=== PATIENT | male | born 1980 | race Caucasian/White ===

== ENCOUNTER 2016-05-23 19:30 | Emergency (ER) | payer OTHER ==
[~2016-05-23] VITALS: Ht 177.8 cm; Wt 73.0 kg
[~2016-05-23 19:30] MED LIST: AMI25 PO; CHLO25CA9 PO; CLON-379 PO; DIPH25CA6 PO; ESCI10TA PO; FOLI20CA PO; GABA600T PO; HYDR-3012 PO; IBUP200C PO; LORA1TAB PO; MIRT30TA5 PO; MULT-761 PO; NICO-512 TRANSDERM; PROP40TA4 PO
[2016-05-23 20:43] VITALS: Ht 177.8 cm; Wt 73.0 kg
--- NOTE | 2016-05-24 01:31 | ERD ---
ER Documentation Chief Complaint Date/Time DATE: 05/24/16 TIME: 01:30 Chief Complaint ETOH abuse,fatigue x mths,recent low Hgb/transfusion,black stools,abd. pain HPI This is a 36 year male comes in with complaints of alcohol abuse. He has been fatigued for months. He said he was transfused recently. Patient states that he feels weak. Patient has been drinking consistently for the past 15 years. No other current complaints. ROS All systems reviewed and are negative except as per history of present illness. Medications Home Meds Active Scripts Nicotine* (Nicoderm* Patch) 1 Patch Patch, 1 PATCH TRANSDERM DAILY, #20 PATCH Prov:KEISHA MYERS MD 02/10/15 Escitalopram Oxalate* (Lexapro*) 10 Mg Tablet, 10 MG PO DAILY, #60 TAB Prov:KEISHA MYERS MD 02/10/15 Lorazepam* (Lorazepam*) 1 Mg Tablet, 1 MG PO Q8 Y for alcohol withdrawl , #40 TAB Prov:KEISHA MYERS MD 02/10/15 Chlordiazepoxide* (Chlordiazepoxide*) 25 Mg Capsule, 25 MG PO BID Y for ANXIETY , #40 CAP Prov:KEISHA MYERS MD 02/10/15 Mirtazapine* (Mirtazapine*) 30 Mg Tablet, 30 MG PO HS, #60 TAB Prov:KEISHA MYERS MD 02/10/15 Amitriptyline Hcl* (Elavil*) 25 Mg Tab, 25 MG PO HS, #60 TAB Prov:KEISHA MYERS MD 02/10/15 Gabapentin* (Neurontin*) 600 Mg Tablet, 600 MG PO BID for LE neuropathy, tremors , #100 TAB Prov:KEISHA MYERS MD 09/23/14 Reported Medications Hydroxyzine Hcl* (Hydroxyzine Hcl*) 50 Mg Tablet, 100 MG PO Q6H Y for ANXIETY, TAB 01/30/15 Multivitamin (MULTI VITAMIN DAILY) 1 Each Tablet, 1 TAB PO DAILY, TAB 09/22/14 Clonidine Hcl* (Clonidine Hcl*) 0.1 Mg Tab, 0.1 MG PO Q6 Y for ELEVATED SYSTOLIC BP, TAB for sbp> 160 09/22/14 Propranolol Hcl* (Propranolol Hcl*) 40 Mg Tablet, 40 MG PO BID, TAB 09/22/14 Folic Acid (Folic Acid) 20 Mg Capsule, 1 MG PO DAILY 09/22/14 Diphenhydramine Hcl (Benadryl) 25 Mg Cap, 50 MG PO HS Y for INSOMNIA, CAP 09/22/14 Ibuprofen (Advil Migraine) 200 Mg Capsule, 600 MG PO Q6 Y for ANXIETY 09/22/14 Allergies Allergies: Coded Allergies: No Known Allergy (Unverified , 01/30/15) PMhx/Soc History of Surgery: No (not stated) Anesthesia Reaction: No Hx Neurological Disorder: No Hx Respiratory Disorders: No Hx Cardiac Disorders: Yes (htn) Hx Psychiatric Problems: No Hx Miscellaneous Medical Probl: Yes (ETOH use, alcoholic cirrhosis, anemia, thrombocytopenia, depression) Hx Alcohol Use: Yes (1/2 LITER VODKA DAILY) Hx Substance Use: No Hx Tobacco Use: Yes (1/2 pack /day) Smoking Status: Current every day smoker Physical Exam Vitals Vital Signs Date Time Temp Pulse Resp B/P Pulse Ox O2 Delivery O2 Flow Rate FiO2 05/23/16 20:43 97.1 92 20 124/71 100 Physical Exam Const: [] Head: Atraumatic Eyes: Normal Conjunctiva ENT: Normal External Ears, Nose and Mouth. Neck: Full range of motion..~ No meningismus. Resp: Clear to auscultation bilaterally Cardio: Regular rate and rhythm, no murmurs Abd: Soft, non tender, non distended. Normal bowel sounds Skin: No petechiae or rashes Back: No midline or flank tenderness Ext: No cyanosis, or edema Neur: Awake and alert Psych: Normal Mood and Affect KOBE WILSON May 24, 2016 01:31
[2016-05-24] MEDS ORDERED: LORAZEPAM 1 MG TAB PO ONE (02:00)
[2016-05-24 02:43] LABS: BASOPHILS % 0.9 % (0.0-2.0); CONDITION 1; EOSINOPHILS # 0.1 10^3/ul (0.0-0.5); EOSINOPHILS % 2.1 % (0.0-7.0); HEMATOCRIT 35.3 % (42.0-52.0); HEMOGLOBIN 11.4 g/dl (14.0-18.0); LH ANALYZER COMMENTS 1; LYMPHOCYTES % 40.7 % (15.0-51.0); MEAN CORPUSCULAR HEMOGLOBIN 27.7 pg (29.0-33.0); MEAN CORPUSCULAR HGB CONC 32.2 g/dl (32.0-37.0); MEAN CORPUSCULAR VOLUME 86.2 fl (82.0-101.0); MEAN PLATELET VOLUME 6.8 fl (7.4-10.4); MONOCYTE # 0.8 10^3/ul (0.3-0.9); MONOCYTES % 16.2 % (0.0-11.0); NEUTROPHILS % 40.1 % (39.0-77.0); PLATELET COUNT 235 10^3/UL (140-440); RED BLOOD COUNT 4.09 10^6/ul (4.70-6.10); UNCORRECTED WBC 4.9 10^3/ul (4.8-10.8); WHITE BLOOD COUNT 4.9 10^3/ul (4.8-10.8)
[2016-05-24] MEDS ORDERED: LORA1TAB PO (02:56)
[2016-05-24 03:05] VITALS: BP 115/59; PULSE 86; RESP 18
== END 2016-05-24 03:14 | disposition home or self-care (01) ==
LOC: E/R 19:30
DX: F10.10 Alcohol abuse, uncomplicated (principal); F17.210 Nicotine dependence, cigarettes, uncomplicated; I10 Essential (primary) hypertension
CPT/HCPCS: 36415; 85025; Z7502; Z7610; 99283

== ENCOUNTER 2017-01-02 19:30 | Inpatient (IN) | payer OTHER ==
[~2017-01-02] VITALS: Ht 167.6 cm; Wt 73.9 kg
[2017-01-02 19:53] VITALS: PULSE 95
[2017-01-02 20:09] VITALS: PULSE 90
[2017-01-02 20:11] VITALS: BP 134/66; RESP 19
[2017-01-02] MEDS: DEXTROSE 5%-0.45% NACL 1,000 ML IV SCH (20:31)
[2017-01-02] MEDS ORDERED: traZODone 50 MG TAB PO SCH (21:00)
[2017-01-02] MEDS: LORAZEPAM 2 MG INJ IV PRN (21:55)
[2017-01-02] MEDS ORDERED: ACETAMINOPHEN 325 MG TAB PO PRN (23:00)
[2017-01-02] MEDS ORDERED: DOCUSATE SODIUM 100 MG CAP PO PRN (23:00)
[2017-01-02] MEDS ORDERED: ONDANSETRON 4 MG INJ IV PRN (23:00)
[2017-01-02] MEDS ORDERED: NACL 0.9% 3 ML SYG IV SCH (23:00)
[2017-01-02] MEDS ORDERED: HYDROmorphONE 1 MG/ML SYG IV PRN (23:00)
[2017-01-02 23:57] VITALS: BP 115/59; RESP 18
[2017-01-03] VITALS (11 sets, daily range): BP systolic 116–121; BP diastolic 59–65; PULSE 85–95; RESP 18–20
[2017-01-03] MEDS: PANTOPRAZOLE 40 MG INJ IV SCH ×2 (05:56→17:15)
[2017-01-03 08:12] LABS: BASOPHILS % 0.2 % (0.0-2.0); EOSINOPHILS % 0.1 % (0.0-7.0); HEMATOCRIT 26.5 % (42.0-52.0); HEMOGLOBIN 9.1 g/dl (14.0-18.0); LYMPHOCYTES # 1.1 10^3/ul (0.8-2.9); LYMPHOCYTES % 7.5 % (15.0-51.0); MEAN CORPUSCULAR HEMOGLOBIN 36.5 pg (29.0-33.0); MEAN CORPUSCULAR HGB CONC 34.3 g/dl (32.0-37.0); MEAN CORPUSCULAR VOLUME 106.4 fl (82.0-101.0); MONOCYTE # 0.7 10^3/ul (0.3-0.9); MONOCYTES % 4.8 % (0.0-11.0); NEUTROPHIL # 12.6 10^3/ul (1.6-7.5); NEUTROPHILS % 84.5 % (39.0-77.0); NUCLEATED RED BLOOD CELLS% 0.2 /100WBC (0.0-0.0); PLATELET COUNT 135 10^3/UL (140-415); RED BLOOD COUNT 2.49 10^6/ul (4.70-6.10); WHITE BLOOD COUNT 14.9 10^3/ul (4.8-10.8)
[2017-01-03 08:52] LABS: ALBUMIN 2.4 g/dl (3.3-4.9); ALBUMIN/GLOBULIN RATIO 0.53; BILIRUBIN,INDIRECT 2.2 mg/dl (0-1.1); CALCIUM 8.4 mg/dl (8.4-10.2); CREATININE 1.87 mg/dl (0.61-1.24); POTASSIUM 3.9 mmol/L (3.5-5.1); TOTAL PROTEIN 6.9 g/dl (6.1-8.1)
[2017-01-03 08:59] LABS: BILIRUBIN,DIRECT 19.8 mg/dl (0.00-0.20)
[2017-01-03] MEDS: LORAZEPAM 2 MG INJ IV PRN (09:34)
--- NOTE | 2017-01-03 09:44 | OPPN ---
Date/Time of Note Date/Time of Note DATE: 01/03/17 TIME: 09:41 Operative Report Preoperative Diagnosis Screening colonoscopy Postoperative Diagnosis Screening colonoscopy Operation/Procedure Performed Colonoscopy Normal all the way into cecum Normal clarity and cleanliness Provider: LAURA CORDERO MD Anesthesia Type: moderate sedation Estimated blood loss: none Transfusion Required: no Specimen: none Grafts/Implants: none Complications: no LAURA CORDERO MD Jan 03, 2017 09:44
--- NOTE | 2017-01-03 10:02 | OPPN ---
Date/Time of Note Date/Time of Note DATE: 01/03/17 TIME: 10:02 LAURA CORDERO MD Jan 03, 2017 10:02
[2017-01-03] MEDS ORDERED: PHYTONADIONE 10 MG/ML INJ SC STA (11:19)
[2017-01-03] MEDS: MULTIVITAMINS 10 ML, THIAMINE 100 MG, FOLIC ACID 1 MG in SOD CHLORIDE 0.9% 1,000 ML IVPB SCH (12:05)
--- NOTE | 2017-01-03 12:28 | PN ---
Date/Time of Note Date/Time of Note DATE: 01/03/17 TIME: 12:21 Assessment/Plan VTE Prophylaxis VTE Prophylaxis Intervention: contraindicated Lines/Catheters [facility] Per[facility] IV Assessment/Plan Chief Complaint/Hosp Course 36 y/o with # Upper GI bleed with hematemesis/ malenia r/o Oesophegeal varices/ gastritis/ esophagitis with etoh abuse # ETOH withdrawal r/p pancreatitis # Acute on chronic liver failure likely Etoh abuse with elevated INR, Hyperbilirubenemia, low platelets, r/o cirrhosis # Possible hepatic encephalopathy # Depression Recs - NPO, Banana bag - Iv ativan/librium - octerotide/ PPI - EGD tmw - Check INR, ammonia levels - Possible Prednisone per GI for Alc hepatitis - Pt will need Rehab for 6 monthsand possibly Liver transplant - SW consult Problems: Subjective 24 Hr Interval Summary Free Text/Dictation Pt very confused spoke to mother at bedside Exam/Review of Systems Vital Signs Vitals Vital Signs Date Time Temp Pulse Resp B/P Pulse Ox O2 Delivery O2 Flow Rate FiO2 01/03/17 12:13 87 01/03/17 11:49 97.6 18 120/63 98 01/03/17 08:27 Room Air Exam Gen:drowsy, confused HEENT:Scleral icterus Neck:supple CVS:Tacycardic Resp:clear Abdomen:distended Ext: trace edema skin: jaundiced Results Result Diagram: 01/03/17 0735 01/03/17 0735 Results 24 hrs Laboratory Tests Test 01/03/17 07:35 White Blood Count 14.9 #H Red Blood Count 2.49 #L Hemoglobin 9.1 #L Hematocrit 26.5 #L Mean Corpuscular Volume 106.4 #H Mean Corpuscular Hemoglobin 36.5 #H Mean Corpuscular Hemoglobin Concent 34.3 Red Cell Distribution Width 19.0 H Platelet Count 135 L Mean Platelet Volume 10.0 # Neutrophils % 84.5 H Lymphocytes % 7.5 L Monocytes % 4.8 Eosinophils % 0.1 Basophils % 0.2 Nucleated Red Blood Cells % 0.2 H Neutrophils # 12.6 H Lymphocytes # 1.1 Monocytes # 0.7 Eosinophils # 0.0 Basophils # 0.0 Nucleated Red Blood Cells # 0.0 Sodium Level 136 Potassium Level 3.9 Chloride Level 112 H Carbon Dioxide Level 17 L Anion Gap 11 Blood Urea Nitrogen 14 Creatinine 1.87 H Glucose Level 135 Calcium Level 8.4 Total Bilirubin 22.0 H Direct Bilirubin 19.80 *H Indirect Bilirubin 2.2 H Aspartate Amino Transf (AST/SGOT) 160 H Alanine Aminotransferase (ALT/SGPT) 28 Alkaline Phosphatase 256 H Total Protein 6.9 Albumin 2.4 L Globulin 4.50 H Albumin/Globulin Ratio 0.53 Medications Medications Current Medications Lorazepam (Ativan) 1 mg Q4 PRN IV ANXIETY Last administered on 01/03/17 09:34 ; Admin Dose 1 MG; Start 01/02/17 at 20:00 Pantoprazole 40 mg 40 mg BID@06,18 IV Last administered on 01/03/17 05:56; Admin Dose 40 MG; Start 01/03/17 at 06:00 Multivitamins/ Thiamine HCl/ Folic Acid/Sodium Chloride (Mvi Adult/ Vitamin B1/ Folic Acid/NS) 1,011.2 ml @ 125 mls/ hr DAILY@09 IVPB Last administered on 12:05; Admin Dose 125 MLS/HR; Start 01/03/17 at 09:00 Chlordiazepoxide (Librium) 25 mg TID PRN PO ETOH WITHDRAWAL SYMPTOMS; Start at 20:00 Trazodone HCl 50 mg 50 mg HS PO Last administered on 01/02/17 21:55; Admin Dose 50 MG; Start 01/02/17 at 21:00 Dextrose/Sodium Chloride (D5-1/2ns) 1,000 ml @ 40 mls/hr Q24H IV Last administered on 01/02/17 20:31; Admin Dose 40 MLS/HR; Start 01/02/17 at 20:00 Ondansetron HCl (Zofran Inj) 4 mg Q6H PRN IV NAUSEA AND/OR VOMITING; Start at 23:00 Acetaminophen (Tylenol Tab) 650 mg Q6H PRN PO PAIN LEVEL 1-3 OR FEVER; Start at 23:00 Hydromorphone HCl (Dilaudid) 0.5 mg Q4H PRN IV SEVERE PAIN LEVEL 7-10; Start at 23:00 Docusate Sodium 100 mg 100 mg Q12H PRN PO CONSTIPATION; Start 01/02/17 at 23:00 Octreotide Acetate/Sodium Chloride (Sandostatin/NS) 100 ml @ 5 mls/hr Q20H IV ; Start 01/03/17 at 13:00 Lactulose (Enulose) 20 gm Q8 PO ; Start 01/03/17 at 14:00 BRAEDEN LUNSFORD MD Jan 03, 2017 12:28
[2017-01-03] MEDS: OCTREOTIDE 1 MG in SOD CHLORIDE 0.9% 95 ML IV SCH (12:49)
--- NOTE | 2017-01-03 13:01 | CONS ---
DATE OF ADMISSION: 01/02/2017 DATE OF CONSULTATION: 01/03/2017 REQUESTING PHYSICIAN: Lloyd Payton MD HISTORY OF PRESENT ILLNESS: The patient is a 36-year-old gentleman with a history of alcohol abuse, cirrhosis of liver, esophageal varicose vein as per old record, depression was transferred to the hospital for 1 episode of hematemesis. The patient has been drinking heavily on a regular basis. He denies of chest pain, hematochezia, melena. No or VICE PRESIDENT SAFETY problems. No fever, no chills. PAST MEDICAL HISTORY: Alcoholism, depression, history of cirrhosis, anemia and thrombocytopenia. MEDICATION: All medication reviewed. ALLERGIES: NO KNOWN DRUG ALLERGIES. FAMILY HISTORY: Father from cirrhosis. SOCIAL HISTORY: He smokes half a pack a day and drinks alcohol on a regular basis, half a vodka every day as per the record. REVIEW OF SYSTEMS: Nothing additional than what has been described. PHYSICAL EXAMINATION: VITAL SIGNS: Stable. ABDOMEN: Benign. HEART: No murmur. LUNGS: Clear. EXTREMITIES: He has got a tremor. NEUROLOGIC: Speech is also slow, able to recognize, oriented to time, place, and space but the speech is slurred. LABORATORY: Platelet count is 135, hematocrit is 26, WBC is 14. No imaging study has been done here. IMPRESSION: 1. Cirrhosis of liver. 2. History of esophageal varicose vein. 3. One episode of hematemesis. 4. Anemia. 5. Coagulopathy. 6. Jaundice. Bilirubin at other hospital was reported 30. 7. Depression. PLAN: At this point, patient will be placed on lactulose. Will continue with PPI. Start the patient on octreotide drip. Continue Librium. Monitor H and H, and transfuse on as needed basis. Patient needs vitamin K and FFP. Will proceed with EGD once he is more stable. He was fed this morning. He also needs thiamine. Dictated By: Renato Mercer MD /derek/dwight /Document#: [id number] CC: Lloyd Payton MD;*EndCC*
[2017-01-03 13:33] LABS: HEMATOCRIT 27.9 % (42.0-52.0); HEMOGLOBIN 9.3 g/dl (14.0-18.0)
[2017-01-03] MEDS: LACTULOSE 30ML CUP PO SCH ×2 (14:52→21:59)
[2017-01-03] MEDS: CHLORDIAZEPOXIDE 25 MG CAP PO PRN ×2 (14:52→21:59)
--- NOTE | 2017-01-03 14:59 | HP ---
DATE OF ADMISSION: 01/02/2017 REASON FOR ADMISSION: Transfer from [facility] for GI bleed and alcohol withdrawal. HISTORY OF PRESENT ILLNESS: This is a 36-year-old male with a past medical history of chronic alcohol abuse, history of multiple admissions in the past secondary to alcohol abuse, pancreatitis, questionable alcoholic cirrhosis who presented to [facility] on January 01 with melena, fatigue, chills, oral bleeding and 1 episode of small volume hematemesis in the setting of daily alcohol use. Patient was also having her dark stool for 4 weeks before admission. Denied any bright red per rectum or hematemesis. He was drinking half 750 mL of vodka a day. Continued to drink during this time. For past 2 weeks, he had progressively become fatigued and had diminished appetite. He has also noticed increased abdominal pain and had spit brenda blood the night before the admission. He returned from a trip to [place] with his mother and began drinking at home. He had an episode of hematemesis and mother brought him to the emergency department. He denied any history of withdrawal seizures, but he became tremulous. In the emergency department, the heart rate was 101, blood pressure 120. His sodium was 129, potassium was 2.3. He was started on Librium and Ativan. His hemoglobin had dropped from 11 to 9.1 and was started on octreotide and Protonix drip. He was also started on Rocephin. He was also started on prednisolone for alcoholic hepatitis and was transferred to [facility] for insurance reason. Currently, the patient is very confused. Said that his father 2 months ago, when he 2 years ago. Has some abdominal pain. No hematemesis or melena noted in the hospital. PAST MEDICAL HISTORY: 1. History of chronic alcohol abuse. 2. Hepatitis with acute on chronic liver failure. 3. Alcoholic pancreatitis. 4. Depression. ALLERGIES: NONE. PROCEDURE HISTORY: None. MEDICATIONS: At [facility]: 1. Rocephin. 2. Ativan. 3. Octreotide drip. 4. Protonix drip. 5. Prednisolone syrup. 6. Banana bag. 7. Folic acid. FAMILY HISTORY: The patient lives with his mother. SOCIAL HISTORY: Two years of daily alcohol use. Drinks a half of 750 mL vodka daily. Smokes half pack a day. Denies IVDU. REVIEW OF SYSTEMS: The patient complained of generalized weakness. Poor appetite. Abdominal pain, nausea, hematemesis, melena. Denies any chest pain, any shortness of breath. The patient is jaundiced. Denies any headache, any blurry vision. Denies any chest pain, no focal neurological deficits. PHYSICAL EXAMINATION: VITAL SIGNS: Blood pressure 120/63, afebrile, heart rate 87, respirations 18. GENERAL: The patient is a disheveled male who is a dozing in and out in the interview, forgetful. Disoriented. HEENT: Scleral icterus. NECK: Supple. HEART: Tachycardic. LUNGS: Decreased breath sounds bilaterally. ABDOMEN: Some distention, but no brenda ascites. Positive bowel sounds. EXTREMITIES: Trace edema. SKIN: Patient has icterus. NEURO: Patient is tremulous. No more moving all extremities. DIAGNOSTIC DATA: Sodium of 136, potassium 3.6, chloride 112, bicarb of 17, BUN of 14, creatinine 1.87 with a baseline of 0.92 in 01/2015. Total bilirubin 22, direct bilirubin 19, AST 160, ALT 28, alkaline phosphatase 256, albumin 2.4. No amylase and lipase. White count of 14.9, hemoglobin 9.1, platelet count 135, INR from [facility] 2.14. CT of the head there was negative for mass, shift or bleed. ASSESSMENT AND PLAN: This is a 36-year-old male presenting with: 1. Hematemesis, melena, bright red blood per rectum. Hemoglobin of 9, likely secondary to gastrointestinal bleed in the setting of hematemesis and melena . The patient is currently hemodynamically stable. Could be due to underlying cirrhosis with esophageal varices or gastritis status esophagitis. 2. Alcohol withdrawal with a history of chronic alcohol abuse. 3. Acute alcoholic hepatitis with acute on chronic liver failure. 4. Chronic alcohol abuse. 5. Hyperbilirubinemia, likely secondary to alcoholic hepatitis. 6. Hypokalemia at [facility], which has been resolved. 7. Acute kidney injury, could be prerenal secondary to dehydration, alcohol abuse, decreased oral intake versus hepatorenal. 8. Hypoalbuminemia. 9. History of alcoholic pancreatitis. PLAN: At this period of time, patient is admitted to the . We will keep the patient n.p.o. We will start the patient on a banana bag, patient IV Ativan, Librium. GI consultation with Dr. Mercer has been requested. We will get EGD tomorrow. We will continue the patient on ocreotide and PPI. Serial H and H. The patient will need rehab. We will check for INR and right upper quadrant ultrasound. I spoke to the mother at the bedside. The patient will need drug rehab. Also spoke to the mother about possible liver transplantation. The rest of the treatment will depend on the patient's hospitalization course. Dictated By: MD SUSI Joyce/derek/juan /Document#: [id number]
[2017-01-03 17:23] LABS: ADD UMIC NO; UR ASCORBIC ACID NEGATIVE (NEGATIVE); UR BILIRUBIN (Dip) 2+ mg/dL (NEGATIVE); UR BLOOD (Dip) NEGATIVE (NEGATIVE); UR CLARITY SLIGHTLY CLOUDY (CLEAR); UR COLOR AMBER (YELLOW); UR GLUCOSE (Dip) NEGATIVE (NEGATIVE); UR KETONES (Dip) NEGATIVE (NEGATIVE); UR LEUKOCYTE ESTERASE (Dip) NEGATIVE Leu/ul (NEGATIVE); UR NITRITE (Dip) NEGATIVE (NEGATIVE); UR RBC 0 /HPF (0-5); UR SPECIFIC GRAVITY (Dip) 1.013 (1.003-1.030); UR TOTAL PROTEIN (Dip) NEGATIVE (NEGATIVE); UR UROBILINOGEN (Dip) 2+ mg/dL (NEGATIVE)
[2017-01-03 17:32] LABS: CANNABINOIDS Negative (NEGATIVE); OPIATES Positive (NEGATIVE)
[2017-01-03 17:37] LABS: BARBITURATES Negative (NEGATIVE); BENZODIAZEPINES Positive (NEGATIVE); COCAINE Negative (NEGATIVE)
[2017-01-03 18:37] LABS: HEMATOCRIT 26.8 % (42.0-52.0)
[2017-01-03] MEDS: DEXTROSE 5%-0.45% NACL 1,000 ML IV SCH (20:02)
[2017-01-04] VITALS (22 sets, daily range): BP systolic 110–139; BP diastolic 63–96; PULSE 80–107; RESP 18–33
[2017-01-04 00:47] LABS: HEMOGLOBIN 9.6 g/dl (14.0-18.0)
--- NOTE | 2017-01-04 02:52 | RADRPT ---
PROCEDURE: Abdominal ultrasound. CLINICAL INDICATION: Abdominal pain. TECHNIQUE: Multiple real-time images were acquired of the patient's abdomen and retroperitoneum u tilizing a high resolution transducer. COMPARISON: 01/30/2015. FINDINGS: The liver demonstrates increased echogenicity and size measuring 21.0 cm. No focal hepatic lesion is identified. The portal vein is patent with hepatopetal flow. The gallbladder is contracted. No gall stones are identified within the gallbladder. There is no pericholecystic fluid or gallbladder wall thickening. The common bile duct measures 3.9 mm in maximal dimension. The visualized portions of th e pancreas are unremarkable. The pancreas is partially obscured by overlying bowel gas. The spleen i s enlarged measuring 16.2 cm. There is trace ascites within the right upper quadrant. The kidneys are normal size, and demonstrate normal echogenicity and morphology. The right kidney me asures 11.9 x 4.5 x 4.9 cm. The left kidney measures 11.7 x 4.8 x 4.5 cm. There is no dilatation of the pelvicaliceal systems bilaterally. There are no perinephric fluid collections. There is a small echogenic calculus within the left kidney measuring 5.8 x 3.9 x 4.7 mm. The visualized abdominal ao rta and vena cava are unremarkable. IMPRESSION: Enlarged liver with fatty infiltration. Splenomegaly. Nonobstructing left renal calculus. Trace right upper quadrant ascites. Pancreas partially obscured by overlying bowel gas. .Phill Suazo MD, MD Date Time Electronically viewed and signed by .Phill Suazo MD, MD on 01/04/2017 02:52 .T/
[2017-01-04] MEDS: LACTULOSE 30ML CUP PO SCH ×4 (05:09→23:04)
[2017-01-04] MEDS: PANTOPRAZOLE 40 MG INJ IV SCH ×2 (05:39→19:06)
[2017-01-04] MEDS: LORAZEPAM 2 MG INJ IV PRN (06:32)
--- NOTE | 2017-01-04 07:09 | RADRPT ---
PROCEDURE: XR Chest. CLINICAL INDICATION: Preop TECHNIQUE: A single AP view of the chest was obtained. COMPARISON: Chest x-ray dated 02/05/2015 FINDINGS: Lung volumes are low. There is left basilar atelectasis. Nodular densities are seen within the right hilum. No focal airspace opacification, pleural effusion or pneumothorax is seen. The cardiomedias tinal silhouette is within normal limits for size. The osseous structures are unremarkable. IMPRESSION: 1. Low lung volumes with left basilar atelectasis. 2. Nodular densities in the right hilum, may reflect prominent pulmonary vessels. CT of the chest i s recommended for further evaluation. RPTAT: HH .Josie Merritt MD, MD Date Time Electronically viewed and signed by .Josie Merritt MD, on 01/04/2017 07:09 .G/
[2017-01-04 08:27] LABS: BASOPHILS % 0.2 % (0.0-2.0); EOSINOPHILS # 0.1 10^3/ul (0.0-0.5); EOSINOPHILS % 0.4 % (0.0-7.0); HEMATOCRIT 27.8 % (42.0-52.0); HEMOGLOBIN 9.3 g/dl (14.0-18.0); LYMPHOCYTES # 0.9 10^3/ul (0.8-2.9); LYMPHOCYTES % 6.1 % (15.0-51.0); MEAN CORPUSCULAR HEMOGLOBIN 36.5 pg (29.0-33.0); MEAN CORPUSCULAR HGB CONC 33.5 g/dl (32.0-37.0); MEAN PLATELET VOLUME 10.1 fl (7.4-10.4); MONOCYTE # 1.1 10^3/ul (0.3-0.9); MONOCYTES % 7.4 % (0.0-11.0); NEUTROPHIL # 12.6 10^3/ul (1.6-7.5); NEUTROPHILS % 81.9 % (39.0-77.0); PLATELET COUNT 146 10^3/UL (140-415); RED BLOOD COUNT 2.55 10^6/ul (4.70-6.10); RED CELL DISTRIBUTION WIDTH 19.5 % (11.5-14.5); WHITE BLOOD COUNT 15.4 10^3/ul (4.8-10.8)
[2017-01-04] MEDS: OCTREOTIDE 1 MG in SOD CHLORIDE 0.9% 95 ML IV SCH (08:41)
[2017-01-04 08:50] LABS: INR 1.76; PROTIME 20.7 Sec (12.2-14.2); PT RATIO 1.6
[2017-01-04 09:00] LABS: ALBUMIN 2.5 g/dl (3.3-4.9); ALBUMIN/GLOBULIN RATIO 0.55; BILIRUBIN,INDIRECT 2.3 mg/dl (0-1.1); BILIRUBIN,TOTAL 24.5 mg/dl (0.2-1.3); CALCIUM 8.9 mg/dl (8.4-10.2); CREATININE 2.12 mg/dl (0.61-1.24)
[2017-01-04 09:06] LABS: BILIRUBIN,DIRECT 22.2 mg/dl (0.00-0.20); POTASSIUM 2.9 mmol/L (3.5-5.1)
[2017-01-04] MEDS: CHLORDIAZEPOXIDE 25 MG CAP PO SCH ×3 (09:34→21:03)
[2017-01-04] MEDS: LORAZEPAM 2 MG INJ IV SCH ×8 (09:34→23:03)
--- NOTE | 2017-01-04 09:40 | PN ---
Date/Time of Note Date/Time of Note DATE: 01/04/17 TIME: 09:35 Assessment/Plan VTE Prophylaxis VTE Prophylaxis Intervention: contraindicated Lines/Catheters [facility] Peripheral IV Urinary Cath still in place: No Assessment/Plan Chief Complaint/Hosp Course 36 y/o with # Upper GI bleed with hematemesis/ josue r/o Oesophegeal varices/ gastritis/ esophagitis with etoh abuse, H/H stable # ETOH withdrawal r/0 pancreatitis # Acute on chronic liver failure likely Etoh abuse with elevated INR, Hyperbilirubenemia, low platelets, r/o cirrhosis # Hepatic encephalopathy with elevated Ammonia levels # Depression # Hypokalemia # NICOLAS likely prerenal vs HRS # Acidosis Recs - NPO, Banana bag - Iv ativan/librium ATC - octerotide/ PPI - EGD today - Lactulose and Rifaximin after EGD - iV Rocephin for GI bleed - [place] - ABG for acidosis - Possible Prednisone per GI for Alcholic hepatitis - U/s negative for cirrhosis - SW consult - 1:1 sitter Problems: Subjective 24 Hr Interval Summary Free Text/Dictation Pt says that he wants to go home Very shaky, tremolous Urinated only once No bleeding noted Exam/Review of Systems Vital Signs Vitals Vital Signs Date Time Temp Pulse Resp B/P Pulse Ox O2 Delivery O2 Flow Rate FiO2 01/04/17 08:25 95 01/04/17 08:01 97.4 19 123/66 97 01/04/17 06:39 Nasal Cannula 2.0 Intake and Output 01/03/17 01/03/17 01/04/17 15:00 23:00 07:00 Intake Total 1411.2 ml 200 ml Output Total 500 ml Balance 911.2 ml 200 ml Exam Gen:Awake,alert oriented x1 HEENT: blood tinged teeth, Scleral icterus Neck:supple CVS: Regular rate and rthym Lungs: decreased breath sounds b/l Abdomen: distended, Ext: no edema Results Result Diagram: 01/04/17 0739 01/04/17 0740 Results 24 hrs Laboratory Tests Test 01/03/17 12:41 01/03/17 14:06 01/03/17 14:30 01/03/17 18:06 Hemoglobin 9.3 L 9.0 L Hematocrit 27.9 L 26.8 L Ammonia 166 #H 131 H Alpha Fetoprotein 2.51 Urine Color ANITRA Urine Clarity SLIGHTLY CLOUDY A Urine pH 6.0 Urine Specific [place] 1.013 Urine Ketones NEGATIVE Urine Nitrite NEGATIVE Urine Bilirubin 2+ H Urine Urobilinogen 2+ H Urine Leukocyte Esterase NEGATIVE Urine Microscopic RBC 0 Urine Microscopic WBC 0 Urine Hemoglobin NEGATIVE Urine Random Sodium 23 L Urine Glucose NEGATIVE Urine Total Protein NEGATIVE Urine Opiates Screen Positive Urine Barbiturates Negative Urine Amphetamines Screen Negative Urine Benzodiazepines Screen Positive Urine Cocaine Screen Negative Urine Cannabinoids Negative Test 01/04/17 00:04 01/04/17 07:39 01/04/17 07:40 Hemoglobin 9.6 L 9.3 L Hematocrit 28.0 L 27.8 L White Blood Count 15.4 H Red Blood Count 2.55 L Mean Corpuscular Volume 109.0 H Mean Corpuscular Hemoglobin 36.5 H Mean Corpuscular Hemoglobin Concent 33.5 Red Cell Distribution Width 19.5 H Platelet Count 146 Mean Platelet Volume 10.1 Neutrophils % 81.9 H Lymphocytes % 6.1 L Monocytes % 7.4 Eosinophils % 0.4 Basophils % 0.2 Nucleated Red Blood Cells % 0.0 Neutrophils # 12.6 H Lymphocytes # 0.9 Monocytes # 1.1 H Eosinophils # 0.1 Basophils # 0.0 Nucleated Red Blood Cells # 0.0 Prothrombin Time 20.7 H Prothrombin Time Ratio 1.6 INR International Normalized Ratio 1.76 Sodium Level 138 Potassium Level 2.9 *L Chloride Level 112 H Carbon Dioxide Level 18 L Anion Gap 11 Blood Urea Nitrogen 18 Creatinine 2.12 H Glucose Level 130 Calcium Level 8.9 Total Bilirubin 24.5 H Direct Bilirubin 22.20 *H Indirect Bilirubin 2.3 H Aspartate Amino Transf (AST/SGOT) 184 H Alanine Aminotransferase (ALT/SGPT) 26 Alkaline Phosphatase 278 H Total Protein 7.0 Albumin 2.5 L Globulin 4.50 H Albumin/Globulin Ratio 0.55 Medications Medications Current Medications Pantoprazole 40 mg 40 mg BID@ IV Last administered on 01/04/17t 05:39; Admin Dose 40 MG; Start 01/03/17 at 06:00 Multivitamins/ Thiamine HCl/ Folic Acid/Sodium Chloride (Mvi Adult/ Vitamin B1/ Folic Acid/NS) 1,011.2 ml @ 125 mls/ hr DAILY@09 IVPB Last administered on 12:05; Admin Dose 125 MLS/HR; Start 01/03/17 at 09:00 Chlordiazepoxide 25 mg 25 mg TID PRN PO ETOH WITHDRAWAL SYMPTOMS Last administered on 01/03/17 21:59; Admin Dose 25 MG; Start 01/02/17 at 20:00 Dextrose/Sodium Chloride (D5-1/2ns) 1,000 ml @ 70 mls/hr [id number] IV Last administered on 01/03/17 20:02; Admin Dose 40 MLS/HR; Start 01/02/17 at 20:00 Ondansetron HCl (Zofran Inj) 4 mg Q6H PRN IV NAUSEA AND/OR VOMITING Last administered on 01/03/17 14:52; Admin Dose 4 MG; Start 01/02/17 at 23:00 Docusate Sodium 100 mg 100 mg Q12H PRN PO CONSTIPATION; Start 01/02/17 at 23:00 Octreotide Acetate/Sodium Chloride (Sandostatin/NS) 100 ml @ 5 mls/hr Q20H IV Last administered on 01/04/17 08:41; Admin Dose 5 MLS/HR; Start 01/03/17 at 13: 00 Lorazepam (Ativan) 1 mg Q2 IV ; Start 01/04/17 at 09:00 Chlordiazepoxide 25 mg 25 mg TID PO ; Start 01/04/17 at 09:00 Potassium Chloride (KCl 40 MEQ/250 ML NS) 250 ml @ 62.5 mls/hr Q4H IVPB ; Start 01/04/17 at 10:30; Stop 01/04/17 at 18:29 Lactulose (Enulose) 20 gm Q6 PO ; Start 01/04/17 at 12:00; Status UNV Rifaximin 550 mg 550 mg BID PO ; Start 01/04/17 at 21:00; Status UNV Ceftriaxone Sodium (Rocephin) 50 ml @ 100 mls/hr Q24H IVPB ; Start 01/04/17 at 09:30; Status UNV BRAEDEN LUNSFORD MD Jan 04, 2017 09:40
[2017-01-04] MEDS: MULTIVITAMINS 10 ML, THIAMINE 100 MG, FOLIC ACID 1 MG in SOD CHLORIDE 0.9% 1,000 ML IVPB SCH (09:53)
[2017-01-04] MEDS: RIFAXIMIN 550 MG TAB PO SCH ×2 (11:00→21:03)
[2017-01-04] MEDS: POTASSIUM CHLORIDE 250 ML IVPB SCH ×2 (11:07→15:47)
[2017-01-04] MEDS: CEFTRIAXONE 1 GM/50 ML (PMX) 50 ML IVPB SCH (14:52)
[2017-01-04] MEDS: DEXTROSE 5%-0.45% NACL 1,000 ML IV SCH (16:54)
[2017-01-04 17:48] LABS: HEMOGLOBIN 8.9 g/dl (14.0-18.0)
[2017-01-04] MEDS ORDERED: PROPOFOL 20 ML ONE (17:49)
[2017-01-04] MEDS ORDERED: MIDAZOLAM 1 MG/ML 2 ML INJ ONE (17:49)
[2017-01-04] MEDS ORDERED: FENTAnyl 50 MCG/ML VIAL ONE (17:49)
--- NOTE | 2017-01-04 18:33 | OPPN ---
Date/Time of Note Date/Time of Note DATE: 01/04/17 TIME: 18:31 Operative Report Preoperative Diagnosis GI bleeding Postoperative Diagnosis GI bleeding Operation/Procedure Performed EGD 1. Congestive gastropathy 2. Severe gastritis 3. Gastroparesis 4. Small varicose vein 5. No evidence of active bleeding Surgeon see signature line boilermaker's assistant Nobody Anesthesia: MAC Estimated blood loss: none Transfusion Required none Specimen None Grafts/Implants none Complications none LAURA CORDERO MD Jan 04, 2017 18:33
[2017-01-04] MEDS ORDERED: PHYTONADIONE 10 MG/ML INJ SC STA (18:37)
--- NOTE | 2017-01-04 19:57 | GILP ---
DATE OF PROCEDURE: 01/04/2017 SURGEON: Renato Mercer MD. INDICATIONS FOR PROCEDURE: The patient is a 36-year-old male with a history of alcohol abuse. Severely jaundiced, had coagulopathy, who comes with a hematemesis and melanotic stool. The patient is undergoing this procedure in Intensive Care Unit to find out the source of bleeding. The risks of the procedure, related complications, anesthetic risk, and alternatives thoroughly discussed with the mother and an informed consent was obtained. Patient was not in a position to give the consent because he was going through DT, and had altered level of consciousness probably from encephalopathy. Anesthesiology had evaluated the patient and Dr. Miller felt comfortable sedating the patient, so we decided to proceed with the procedure in ICU. DESCRIPTION OF PROCEDURE: The patient was sedated by Dr. Miller. After optimal sedation and scope was passed under direct observation with much ease into the esophagus. No active bleeding was seen. The patient had a small varicose vein probably due to the alcoholic hepatitis. Stomach mucosa revealed severe gastritis and also congestive gastropathy. No gastric varicose vein identified. Duodenum, first and second part, appeared normal. No altered blood was seen. There were 200 mL of biliary juice in the fundal area. There was some undigested food particle. The fluid was completely aspirated, undigested food particle was occupying probably 5 percent of the fundus. Retroversion again failed to show any gastric varicose veins. The scope was straightened out and removed with good patient tolerance. IMPRESSION: 1. Severe gastritis. 2. Congestive gastropathy. 3. Gastroparesis. 4. Normal duodenum. 5. No evidence of active bleeding or altered blood seen. 6. Small varicose vein which could be from alcoholic hepatitis and may disappear once hepatitis heals. PLAN: At this point is to just start the patient on Reglan. Continue PPI. When he fully alert and awake we will start him on a Carafate. Strong aspiration precaution. Will keep him NPO for the time being. Dictated By: Renato Mercer MD /derek/shayy /Document#: [id number] CC: Renato Mercer MD; Lloyd Payton MD;*EndCC*
[2017-01-04] MEDS: METOCLOPRAMIDE 10 MG INJ IV SCH (23:04)
[2017-01-04 23:26] LABS: CALCIUM 8.5 mg/dl (8.4-10.2); CREATININE 1.86 mg/dl (0.61-1.24); MAGNESIUM 2.2 mg/dl (1.7-2.5)
[2017-01-05] VITALS (24 sets, daily range): BP systolic 95–144; BP diastolic 67–103; PULSE 91–112; RESP 18–27
[2017-01-05] MEDS: LORAZEPAM 2 MG INJ IV SCH ×6 (01:03→10:55)
[2017-01-05] MEDS: POTASSIUM CHLORIDE 50 ML IVPB PRN ×6 (01:21→15:36)
[2017-01-05] MEDS: METOCLOPRAMIDE 10 MG INJ IV SCH ×3 (05:15→18:05)
[2017-01-05] MEDS: LACTULOSE 30ML CUP PO SCH ×5 (05:15→23:28)
[2017-01-05] MEDS: PANTOPRAZOLE 40 MG INJ IV SCH ×2 (05:15→18:05)
[2017-01-05] MEDS: DEXTROSE 5%-0.45% NACL 1,000 ML IV SCH ×3 (05:16→18:05)
[2017-01-05 05:58] LABS: ALBUMIN 2.6 g/dl (3.3-4.9); ALBUMIN/GLOBULIN RATIO 0.54; BILIRUBIN,INDIRECT 2.3 mg/dl (0-1.1); CREATININE 1.83 mg/dl (0.61-1.24); POTASSIUM 3.2 mmol/L (3.5-5.1); TOTAL PROTEIN 7.4 g/dl (6.1-8.1)
[2017-01-05 05:58] LABS: MAGNESIUM 2.1 mg/dl (1.7-2.5); PHOSPHORUS 3.9 mg/dl (2.5-4.9)
[2017-01-05 05:59] LABS: ABNORMAL IP MESSAGE 1; BASOPHILS % 0.1 % (0.0-2.0); EOSINOPHILS % 0.1 % (0.0-7.0); HEMATOCRIT 27.1 % (42.0-52.0); HEMOGLOBIN 9.3 g/dl (14.0-18.0); LYMPHOCYTES # 1.2 10^3/ul (0.8-2.9); LYMPHOCYTES % 5.5 % (15.0-51.0); MEAN CORPUSCULAR HEMOGLOBIN 36.2 pg (29.0-33.0); MEAN CORPUSCULAR HGB CONC 34.3 g/dl (32.0-37.0); MEAN CORPUSCULAR VOLUME 105.4 fl (82.0-101.0); MEAN PLATELET VOLUME 11.5 fl (7.4-10.4); MONOCYTE # 1.6 10^3/ul (0.3-0.9); MONOCYTES % 7.4 % (0.0-11.0); NEUTROPHIL # 17.6 10^3/ul (1.6-7.5); NUCLEATED RED BLOOD CELLS # 0.1 10^3/ul (0.0-0.0); NUCLEATED RED BLOOD CELLS% 0.3 /100WBC (0.0-0.0); PLATELET COUNT 101 10^3/UL (140-415); POSITIVE DIFF @See below; RED BLOOD COUNT 2.57 10^6/ul (4.70-6.10); RED CELL DISTRIBUTION WIDTH 19.7 % (11.5-14.5)
[2017-01-05 05:59] LABS: INR 1.97; PROTIME 22.6 Sec (12.2-14.2); PT RATIO 1.8
[2017-01-05 06:02] LABS: PARTIAL THROMBOPLASTIN TIME 51.7 Sec (25.0-35.0)
[2017-01-05 06:37] LABS: BILIRUBIN,TOTAL 24.3 mg/dl (0.2-1.3)
--- NOTE | 2017-01-05 08:44 | PN ---
Date/Time of Note Date/Time of Note DATE: 01/05/17 TIME: 08:38 Assessment/Plan VTE Prophylaxis VTE Prophylaxis Intervention: LMWH Lines/Catheters IV [facility] Type ([facility] Saline Lock Urinary Cath still in place: Yes Reason Cath still needed: urinary retention Assessment/Plan Chief Complaint/Hosp Course 36 y/o with # Upper GI bleed s/P EGD with gastritis and gastroparesis on Protonix and Reglan # ETOH withdrawal # ETOH pancreatitis with Lipase 7690 # Acute on chronic liver failure likely Etoh abuse with elevated INR, Hyperbilirubenemia, low platelets, # Hepatic encephalopathy with elevated Ammonia levels improved # Depression # Hypokalemia on KCL 30 # INCOLAS likely prerenal vs HRS, Cr peaked to 2.12, 1.8 today # Acidosis # Leukocytosis ? pancreatitis on rocephin Recs - NPO, Banana bag - Increase fluids D51/2 NS at 125 cc/hr - Iv ativan/librium ATC - PPI - Insert NG - BLD CX, UCX - I.D consult - Lactulose and Rifaximin - iV Rocephin for GI bleed - [place] - Possible Prednisone per GI for Alcholic hepatitis - U/s negative for cirrhosis - Replete K - c/w ICU care Problems: Subjective 24 Hr Interval Summary Free Text/Dictation s/p EGD yesterday with gastritis and gastroparesis, small varices, no active bleeding Pt very combative, drowsy Urine very concentrated Lipase 7270 Exam/Review of Systems Vital Signs Vitals Vital Signs Date Time Temp Pulse Resp B/P Pulse Ox O2 Delivery O2 Flow Rate FiO2 01/05/17 06:00 92 23 127/67 100 Nasal Cannula 01/05/17 05:16 2.0 01/05/17 04:00 98.2 Intake and Output 01/04/17 01/04/17 01/05/17 15:00 23:00 07:00 Intake Total 740 ml 1585 ml 670 ml Output Total 500 ml 1350 ml 1090 ml Balance 240 ml 235 ml -420 ml Exam Gen:Lethargic, moving extremities HEENT: blood tinged teeth, Scleral icterus Neck:supple CVS: Regular rate and rthym Lungs: decreased breath sounds b/l Abdomen: distended, Ext: no edema Results Result Diagram: 01/05/17 0503 01/05/17 0455 Results 24 hrs Laboratory Tests Test 01/04/17 17:25 01/04/17 22:35 01/05/17 04:45 01/05/17 04:55 Hemoglobin 8.9 L Hematocrit 26.0 L Ammonia 114 H 105 H Sodium Level 140 141 Potassium Level 3.0 L 3.2 L Chloride Level 115 H 116 H Carbon Dioxide Level 16 L 15 L Anion Gap 12 13 Blood Urea Nitrogen 17 17 Creatinine 1.86 H 1.83 H Glucose Level 97 93 Calcium Level 8.5 8.0 L Magnesium Level 2.2 Prothrombin Time 22.6 H Prothrombin Time Ratio 1.8 INR International Normalized Ratio 1.97 Activated Partial Thromboplast Time 51.7 H Total Bilirubin 24.3 H Direct Bilirubin 22.00 *H Indirect Bilirubin 2.3 H Aspartate Amino Transf (AST/SGOT) 214 H Alanine Aminotransferase (ALT/SGPT) 33 Alkaline Phosphatase 288 H Total Protein 7.4 Albumin 2.6 L Globulin 4.80 H Albumin/Globulin Ratio 0.54 Lipase 7679 H Test 01/05/17 05:03 White Blood Count 21.0 #H Red Blood Count 2.57 L Hemoglobin 9.3 L Hematocrit 27.1 L Mean Corpuscular Volume 105.4 H Mean Corpuscular Hemoglobin 36.2 H Mean Corpuscular Hemoglobin Concent 34.3 Red Cell Distribution Width 19.7 H Platelet Count 101 #L Mean Platelet Volume 11.5 H Neutrophils % 84.0 H Lymphocytes % 5.5 L Monocytes % 7.4 Eosinophils % 0.1 Basophils % 0.1 Nucleated Red Blood Cells % 0.3 H Neutrophils # 17.6 H Lymphocytes # 1.2 Monocytes # 1.6 H Eosinophils # 0.0 Basophils # 0.0 Nucleated Red Blood Cells # 0.1 H Phosphorus Level 3.9 Magnesium Level 2.1 Medications Medications Current Medications Pantoprazole 40 mg 40 mg BID@,18 IV Last administered on 01/05/17 05:15; Admin Dose 40 MG; Start 01/03/17 at 06:00 Multivitamins 10 ml/Thiamine HCl 100 mg/Folic Acid 1 mg/Sodium Chloride 1,011.2 ml @ 125 mls/ hr DAILY@09 IVPB Last administered on 01/04/17 09:53; Admin Dose 125 MLS/HR; Start 01/03/17 at 09:00 Dextrose/Sodium Chloride (D5-1/2ns) 1,000 ml @ 125 mls/hr Q8H IV Last administered on 01/05/17 05:16; Admin Dose 70 MLS/HR; Start 01/02/17 at 20:00 Ondansetron HCl (Zofran Inj) 4 mg Q6H PRN IV NAUSEA AND/OR VOMITING Last administered on 01/03/17 14:52; Admin Dose 4 MG; Start 01/02/17 at 23:00 Docusate Sodium (Colace) 100 mg Q12H PRN PO CONSTIPATION; Start 01/02/17 at 23: 00 Lorazepam (Ativan) 1 mg Q2 IV Last administered on 01/05/17 06:55; Admin Dose 1 MG; Start 01/04/17 at 09:00 Chlordiazepoxide (Librium) 25 mg TID PO Last administered on 01/04/17 21:03; Admin Dose 25 MG; Start 01/04/17 at 09:00 Lactulose (Enulose) 20 gm Q6 PO Last administered on 01/05/17 05:15; Admin Dose 20 GM; Start 01/04/17 at 12:00 Rifaximin 550 mg 550 mg BID PO Last administered on 01/04/17 21:03; Admin Dose 550 MG; Start 01/04/17 at 11:00 Ceftriaxone Sodium (Rocephin) 50 ml @ 100 mls/hr Q24H IVPB Last administered on 01/04/17 14:52; Admin Dose 100 MLS/HR; Start 01/04/17 at 10:00 Metoclopramide HCl (Reglan) 10 mg Q6 IV Last administered on 01/05/17 05:15; Admin Dose 10 MG; Start 01/05/17 at 00:00 BRAEDEN LUNSFORD MD Jan 05, 2017 08:44
[2017-01-05] MEDS: RIFAXIMIN 550 MG TAB PO SCH ×2 (08:59→23:28)
[2017-01-05] MEDS: MULTIVITAMINS 10 ML, THIAMINE 100 MG, FOLIC ACID 1 MG in SOD CHLORIDE 0.9% 1,000 ML IVPB SCH (08:59)
[2017-01-05] MEDS: CHLORDIAZEPOXIDE 25 MG CAP PO SCH ×3 (08:59→23:28)
[2017-01-05] MEDS: CEFTRIAXONE 1 GM/50 ML (PMX) 50 ML IVPB SCH (09:51)
[2017-01-05 11:15] LABS: AADO2 Arterial 65.9 mmHg (7.0-24.0); Arterial Base Excess -8.2 mmol/L (-3.0-3); Arterial COHb 1.2 % (0.0-3.0); Arterial Fraction of Oxyhgb 90.7 % (93.0-99.0); Arterial HCO3 15.7 mmol/L (22.0-26.0); Arterial MetHb 0.2 % (0.0-1.5); Arterial Total Hemglobin 10.1 g/dl (12.0-18.0); MODE NASAL CANNULA
[2017-01-05] MEDS ORDERED: LIDOCAINE 1% (MPF) 5 ML VIAL SC ONE (12:30)
--- NOTE | 2017-01-05 12:42 | CONS ---
Date/Time of Note Date/Time of Note DATE: 01/05/17 TIME: 12:40 Assessment/Plan Assessment/Plan Additional Assessment/Plan IMPRESSION: 1. Cirrhosis of liver. 2. History of esophageal varicose vein. 3. One episode of hematemesis. 4. Anemia. 5. Coagulopathy. 6. Jaundice. Bilirubin at other hospital was reported 30. 7. Depression. 8. Pancreatitis lipase level is 7000 Plan High dose of lactulose through NG tube Rifaximin No feeding Make Ativan on a needed basis CBC CMP in a.m. Vitamin K Continue with thiamine Continue antibiotic and follow his total bilirubin and WBC count and PT PTT closely. PT is going to be a prognosticator. Case was discussed with the mother and aunt [id number] for 20 minutes Consultation Date/Type/Reason Admit Date/Time Jan 02, 2017 at 19:30 Initial Consult Date 24 HR Interval Summary Free Text/Dictation Patient is in encephalopathy Subjective hx not possible: pt non-verbal Exam/Review of Systems Vital Signs Vitals Vital Signs Date Time Temp Pulse Resp B/P Pulse Ox O2 Delivery O2 Flow Rate FiO2 01/05/17 11:00 96 20 109/68 96 Nasal Cannula 01/05/17 08:00 98.5 01/05/17 05:16 2.0 Intake and Output 01/04/17 01/04/17 01/05/17 15:00 23:00 07:00 Intake Total 740 ml 1585 ml 740 ml Output Total 500 ml 1350 ml 1090 ml Balance 240 ml 235 ml -350 ml Exam Constitutional: alert, oriented, well developed Neurological: confused, lethargic Results Result Diagram: 01/05/17 0503 01/05/17 0455 Results 24 hrs Laboratory Tests Test 01/04/17 17:25 01/04/17 22:35 01/05/17 04:45 01/05/17 04:55 Hemoglobin 8.9 L Hematocrit 26.0 L Ammonia 114 H 105 H Sodium Level 140 141 Potassium Level 3.0 L 3.2 L Chloride Level 115 H 116 H Carbon Dioxide Level 16 L 15 L Anion Gap 12 13 Blood Urea Nitrogen 17 17 Creatinine 1.86 H 1.83 H Glucose Level 97 93 Calcium Level 8.5 8.0 L Magnesium Level 2.2 Prothrombin Time 22.6 H Prothrombin Time Ratio 1.8 INR International Normalized Ratio 1.97 Activated Partial Thromboplast Time 51.7 H Total Bilirubin 24.3 H Direct Bilirubin 22.00 *H Indirect Bilirubin 2.3 H Aspartate Amino Transf (AST/SGOT) 214 H Alanine Aminotransferase (ALT/SGPT) 33 Alkaline Phosphatase 288 H Total Protein 7.4 Albumin 2.6 L Globulin 4.80 H Albumin/Globulin Ratio 0.54 Lipase 7679 H Test 01/05/17 05:03 01/05/17 10:27 01/05/17 11:35 White Blood Count 21.0 #H Red Blood Count 2.57 L Hemoglobin 9.3 L Hematocrit 27.1 L Mean Corpuscular Volume 105.4 H Mean Corpuscular Hemoglobin 36.2 H Mean Corpuscular Hemoglobin Concent 34.3 Red Cell Distribution Width 19.7 H Platelet Count 101 #L Mean Platelet Volume 11.5 H Neutrophils % 84.0 H Lymphocytes % 5.5 L Monocytes % 7.4 Eosinophils % 0.1 Basophils % 0.1 Nucleated Red Blood Cells % 0.3 H Neutrophils # 17.6 H Lymphocytes # 1.2 Monocytes # 1.6 H Eosinophils # 0.0 Basophils # 0.0 Nucleated Red Blood Cells # 0.1 H Phosphorus Level 3.9 Magnesium Level 2.1 Blood Gas Specimen Source Blood arterial Arterial Blood Date Drawn 01/05/2017 11:06:07 AM Arterial Blood pH (Temp corrected) 7.380 Arterial Blood pCO2 (Temp correct) 27.2 L Arterial Blood pO2 (Temp corrected) 65.7 L Arterial Blood HCO3 15.7 L Arterial Blood Base Excess -8.2 L Arterial Blood Oxygen Saturation 92.0 L Prateek Test N/A Arterial Blood Gas Puncture Site LB Arterial Blood Carboxyhemoglobin 1.2 Arterial Blood Methemoglobin 0.2 Blood Gas A-a O2 Differential 65.9 H Oxyhemoglobin Percent 90.7 L Total Hemoglobin 10.1 L Blood Gas Temperature 37.0 Blood Gas Modality NASAL CANNULA FiO2 23.0 Blood Gas Notified Whom TM Blood Gas Notified Time 01/05/2017 11:14:48 AM Creatinine Kinase MB (Mass) 0.76 Medications Medications Current Medications Pantoprazole 40 mg 40 mg BID@ IV Last administered on 01/05/17t 05:15; Admin Dose 40 MG; Start 01/03/17 at 06:00 Multivitamins 10 ml/Thiamine HCl 100 mg/Folic Acid 1 mg/Sodium Chloride 1,011.2 ml @ 125 mls/ hr DAILY@09 IVPB Last administered on 01/05/17 08:59; Admin Dose 125 MLS/HR; Start 01/03/17 at 09:00 Dextrose/Sodium Chloride (D5-1/2ns) 1,000 ml @ 125 mls/hr Q8H IV Last administered on 01/05/17 05:16; Admin Dose 70 MLS/HR; Start 01/02/17 at 20:00 Ondansetron HCl (Zofran Inj) 4 mg Q6H PRN IV NAUSEA AND/OR VOMITING Last administered on 01/03/17 14:52; Admin Dose 4 MG; Start 01/02/17 at 23:00 Docusate Sodium (Colace) 100 mg Q12H PRN PO CONSTIPATION; Start 01/02/17 at 23: 00 Lorazepam (Ativan) 1 mg Q2 IV Last administered on 01/05/17 10:55; Admin Dose 1 MG; Start 01/04/17 at 09:00 Chlordiazepoxide (Librium) 25 mg TID PO Last administered on 01/05/17 08:59; Admin Dose 25 MG; Start 01/04/17 at 09:00 Rifaximin 550 mg 550 mg BID PO Last administered on 01/05/17 08:59; Admin Dose 550 MG; Start 01/04/17 at 11:00 Ceftriaxone Sodium (Rocephin) 50 ml @ 100 mls/hr Q24H IVPB Last administered on 01/05/17 09:51; Admin Dose 100 MLS/HR; Start 01/04/17 at 10:00 Metoclopramide HCl (Reglan) 10 mg Q6 IV Last administered on 01/05/17 05:15; Admin Dose 10 MG; Start 01/05/17 at 00:00 Lactulose (Enulose) 20 gm Q4 PO Last administered on 01/05/17 09:51; Admin Dose 20 GM; Start 01/05/17 at 09:00 LAURA CORDERO MD Jan 05, 2017 12:42
[2017-01-05] MEDS ORDERED: PHYTONADIONE 10 MG/ML INJ SC ONE (13:00)
[2017-01-05] MEDS ORDERED: POTASSIUM CHLORIDE 20 MEQ POWDER FOR ORAL SOLN NGT ONE (13:30)
--- NOTE | 2017-01-05 13:36 | RADRPT ---
PROCEDURE: XR Chest. CLINICAL INDICATION: Low pO2 on EKG TECHNIQUE: Single frontal view of the chest was obtained COMPARISON: 01/03/2017 FINDINGS: See impression. IMPRESSION: Interval placement of a nasogastric tube, which courses below the diaphragm, tip not within the fiel d of view. Decreased lung volumes. Worsening bibasilar opacities most compatible with atelectasis. S uperimposed infection to be determined clinically. Otherwise, no convincing interval change compared to chest radiograph from 2 days prior. RPTAT: EE Physician Grace Date Time Electronically viewed and signed by Physician Grace on 01/05/2017 13:36 /
--- NOTE | 2017-01-05 17:06 | CONS ---
DATE OF ADMISSION: 01/02/2017 DATE OF CONSULTATION: 01/05/2017 REASON FOR CONSULTATION: Antibiotic management. HISTORY OF PRESENT ILLNESS: Jignesh Saleem is a 36-year-old male with numerous problems, who has been transferred from [facility] with GI bleed and alcohol withdrawal. His problems include: 1. History of chronic alcohol abuse. 2. Hepatitis with [id number] liver failure. 3. Alcoholic pancreatitis. 4. Depression. Acutely, patient has a past history of alcohol abuse, pancreatitis, and probable alcoholic cirrhosis. He presented to [facility] on January 01 with melena, fatigue, chills, oral bleeding and 1 episode of small volume hematemesis in the setting of daily alcohol use. Patient was also having dark stools for the past 4 weeks prior to admission. He drank 750 mL of vodka a day. He has become progressively fatigued and he has had diminished appetite with increasing abdominal pain. He returned from a trip to [place] and began drinking at home. He was brought to the emergency room by his mother. He denied withdrawal seizures but he became tremulous, a heart rate of 101, potassium 2.3. He was started on Librium and Ativan. His hemoglobin dropped to 9.1 from 11. He was started on octreotide and Protonix and also Rocephin. Patient was given prednisolone for alcoholic hepatitis, transferred to [facility] for insurance reasons. He is very confused. On admission, his white count was 14.9, H and H of 9.1 and 26.5, platelet count 135,000. Today his white count 21,000 so it is up but he is on prednisolone. His BUN and creatinine are 14 and 1.87. His potassium was low at 2.9. His total bilirubin is 22, up to 24.5 today. Direct bilirubin is 22.2 consistent with significant liver disease. Alkaline phosphatase is 256, and today 278. Patient is on rifaximin and ceftriaxone. Abdominal ultrasounds shows enlarged fatty liver, splenomegaly, nonobstructing left renal calculus, trace right upper quadrant ascites, pancreas partially obscured by overlying bowel gas. Chest x-ray showed low lung volumes with left basilar atelectasis, nodular densities in the right hilum. CT of the chest is recommended for further evaluation. Interval placement of an NG tube was seen on the . Decreased lung volumes. Worsening bibasilar opacities most compatible with atelectasis. Superimposed infection to be determined clinically. Otherwise, no convincing interval change compared to chest radiograph from 2 days prior. PAST MEDICAL HISTORY: As outlined. PAST SURGICAL HISTORY: As outlined. FAMILY HISTORY: Noncontributory. SOCIAL HISTORY: He smokes 1/2 pack a day. He drinks 750 mL of vodka daily. ALLERGIES: NONE TO PENICILLIN, SULFA, OR FOODS. MEDICATION: Per chart. REVIEW OF SYSTEMS: As per HPI. HOSPITAL COURSE: The patient was seen in the consultation by Dr. Mercer. He had a screening colonoscopy and his colonoscopy was normal all the way into the cecum. Patient had an EGD for GI bleeding and congestive gastropathy. Severe gastritis, gastroparesis, small varicose veins. No evidence of active bleeding. The operative procedure was EGD with brushings. Dr. Mercer's assessment was cirrhosis of liver, history of esophageal varicose veins, had 1 episode of hematemesis, anemia, coagulopathy, jaundice, depression, pancreatitis. Lipase level was 7,000. He recommended high-dose lactulose through an NG tube, rifaximin. No feeding. Continue with thiamine. Continue antibiotics. Follow total bilirubin. He noted that the patient was encephalopathic. PHYSICAL EXAMINATION: GENERAL APPEARANCE: Patient is awake, responsive. He is confused. He is in no acute distress. VITAL SIGNS: Stable. He is afebrile. SKIN: Without generalized rash. HEENT: Within normal limits. NECK: Supple. Lymph nodes nonpalpable. CHEST: Decreased breath sounds at the bases. HEART: Without murmur or gallop. ABDOMEN: Soft. Distended. No brenda ascites, no organosplenomegaly or masses. EXTREMITIES: Without cyanosis, clubbing, or edema. His skin is markedly icteric as are his sclerae. RECTAL: Deferred. GENITAL: Deferred. NEUROLOGIC: Patient is tremulous. No focal neurological abnormalities. IMPRESSION AND PLAN: Patient currently has alcoholic cirrhosis, some degree of ascites. He has leukocytosis which is probably related to his prednisolone. He has severe liver disease. His urinalysis is negative. His chest x-ray shows worsening bibasilar opacities most compatible with atelectasis. I am going to switch him over to cefepime to ceftriaxone and observe. If he develops a fever, we will get blood cultures. I will dictate my findings to Dr. Vazquez and Dr. Mercer. Dictated By: Dylan French MD JD/derek/dwight Thomas#: [id number]/Document#: [id number]
--- NOTE | 2017-01-05 18:22 | RADRPT ---
PROCEDURE: XR Chest. CLINICAL INDICATION: PICC line placement. TECHNIQUE: Single frontal chest x-ray. COMPARISON: 01/05/2017 FINDINGS: There is new left PICC line with tip in the junction of SVC and right atrium. NG tube tip is in the stomach. Heart is top normal in size. There is hypoventilation with by lateral infiltrates versus at electasis, unchanged.. There is no pleural effusion. There is no pneumothorax. The osseous struct ures are unremarkable. IMPRESSION: Left PICC line with tip at the junction of the SVC and right atrium. Otherwise no change. RPTAT: HMVK .Cong Gamboa MD, MD Date Time Electronically viewed and signed by .Cong Gamboa MD, on 01/05/2017 18:22 .K/
--- NOTE | 2017-01-05 18:27 | RADRPT ---
PROCEDURE: Ultrasound guidance for placement of needle in left upper extremity vein. CLINICAL INDICATION: PICC placement. TECHNIQUE: Limited sonography of the left upper extremity was performed. Ultrasound images were recorded and st ored in the patient's medical record. COMPARISON: Chest radiograph of the same day. FINDINGS: The ultrasound images demonstrate a patent left upper extremity vein. The PICC line was inserted by the PICC line nurse. IMPRESSION: 1. Ultrasound guidance for a needle placement in a left upper extremity vein. 2. The visualized left upper extremity vein is patent. RPTAT: HH .Blue Bell MD, MD Date Time Electronically viewed and signed by .Blue Bell MD, on 01/05/2017 18:27 .N/
[2017-01-05] MEDS ORDERED: SOD CHLORIDE 0.9% 100 ML ONE (18:53)
[2017-01-05] MEDS: LORAZEPAM 2 MG INJ IV PRN (21:04)
--- NOTE | 2017-01-05 23:11 | RADRPT ---
PROCEDURE: Chest. CLINICAL INDICATION: Chest pain. TECHNIQUE: Single frontal view of the chest was obtained. COMPARISON: 01/05/2017. FINDINGS: There is a nasogastric tube extending to the stomach. There is a left-sided PICC line extending to t he SVC/RA junction. The cardiac silhouette is magnified. The aortic arch is unremarkable. There is mild bibasilar atelectasis. There is no focal consolidation or pleural effusion. There is no pneum othorax. IMPRESSION: Mild bibasilar atelectasis. Tube and line in place. .Phill Suazo MD, MD Date Time Electronically viewed and signed by .Phill Suazo MD, MD on 01/05/2017 23:11 .T/
[2017-01-05] MEDS: CEFEPIME 1GM/50 ML (PMX) 50 ML IVPB SCH (23:29)
[2017-01-06] VITALS (23 sets, daily range): BP systolic 100–146; BP diastolic 71–100; PULSE 94–121; RESP 24–37
[2017-01-06] MEDS: LORAZEPAM 2 MG INJ IV PRN ×5 (01:05→23:30)
[2017-01-06] MEDS: METOCLOPRAMIDE 10 MG INJ IV SCH ×4 (01:05→17:40)
[2017-01-06] MEDS: LACTULOSE 30ML CUP PO SCH ×3 (02:00→08:25)
[2017-01-06] MEDS: DEXTROSE 5%-0.45% NACL 1,000 ML IV SCH (03:24)
[2017-01-06] MEDS: PANTOPRAZOLE 40 MG INJ IV SCH ×2 (05:40→17:40)
[2017-01-06 06:36] LABS: ABNORMAL IP MESSAGE 1; BASOPHIL # 0.1 10^3/ul (0.0-0.1); BASOPHILS % 0.2 % (0.0-2.0); EOSINOPHILS % 0.2 % (0.0-7.0); HEMATOCRIT 27.9 % (42.0-52.0); HEMOGLOBIN 9.4 g/dl (14.0-18.0); LYMPHOCYTES # 1.7 10^3/ul (0.8-2.9); LYMPHOCYTES % 7.2 % (15.0-51.0); MEAN CORPUSCULAR HEMOGLOBIN 36.7 pg (29.0-33.0); MEAN CORPUSCULAR HGB CONC 33.7 g/dl (32.0-37.0); MEAN PLATELET VOLUME 10.5 fl (7.4-10.4); MONOCYTE # 2.2 10^3/ul (0.3-0.9); MONOCYTES % 9.3 % (0.0-11.0); NEUTROPHIL # 18.7 10^3/ul (1.6-7.5); NEUTROPHILS % 78.5 % (39.0-77.0); NUCLEATED RED BLOOD CELLS # 0.1 10^3/ul (0.0-0.0); NUCLEATED RED BLOOD CELLS% 0.3 /100WBC (0.0-0.0); PLATELET COUNT 114 10^3/UL (140-415); POSITIVE DIFF @See below; RED BLOOD COUNT 2.56 10^6/ul (4.70-6.10); RED CELL DISTRIBUTION WIDTH 19.9 % (11.5-14.5); WHITE BLOOD COUNT 23.8 10^3/ul (4.8-10.8)
[2017-01-06 07:16] LABS: PHOSPHORUS 2.8 mg/dl (2.5-4.9)
[2017-01-06 07:17] LABS: ALBUMIN 2.1 g/dl (3.3-4.9); ALBUMIN/GLOBULIN RATIO 0.52; CALCIUM 6.8 mg/dl (8.4-10.2); CREATININE 1.83 mg/dl (0.61-1.24); TOTAL PROTEIN 6.1 g/dl (6.1-8.1)
[2017-01-06 07:33] LABS: POTASSIUM 2.7 mmol/L (3.5-5.1)
[2017-01-06] MEDS: POTASSIUM CHLORIDE 50 ML IVPB PRN ×6 (07:38→18:00)
[2017-01-06] MEDS: CEFEPIME 1GM/50 ML (PMX) 50 ML IVPB SCH (08:22)
[2017-01-06 08:25] LABS: BILIRUBIN,INDIRECT 1.8 mg/dl (0-1.1); BILIRUBIN,TOTAL 21.9 mg/dl (0.2-1.3)
[2017-01-06] MEDS: MULTIVITAMINS 10 ML, THIAMINE 100 MG, FOLIC ACID 1 MG in SOD CHLORIDE 0.9% 1,000 ML IVPB SCH (08:25)
[2017-01-06] MEDS: CHLORDIAZEPOXIDE 25 MG CAP PO SCH ×2 (08:33→21:09)
[2017-01-06] MEDS ORDERED: POTASSIUM CHLORIDE 40 MEQ in DEXTROSE 5%-0.45% NACL 1,000 ML IV SCH (08:46)
--- NOTE | 2017-01-06 08:51 | PN ---
Date/Time of Note Date/Time of Note DATE: 01/06/17 TIME: 08:44 Assessment/Plan VTE Prophylaxis VTE Prophylaxis Intervention: SCD's VTE Contraindication Reason: bleeding Lines/Catheters IV Catheter Type (from Nrsg): PICC Line Central line still needed: Yes Urinary Cath still in place: Yes Reason Cath still needed: urinary retention Assessment/Plan Chief Complaint/Hosp Course 36 y/o with # Upper GI bleed s/P EGD with gastritis and gastroparesis on Protonix and Reglan # ETOH withdrawal # ETOH pancreatitis with Lipase 7690> trending down to 1999 # Acute on chronic liver failure likely Etoh abuse with elevated INR, Hyperbilirubenemia, low platelets, # Hepatic encephalopathy with elevated Ammonia levels still 134 # Depression # Hypokalemia # NICOLAS likely prerenal vs HRS, Cr peaked to 2.12, 1.8 today # Gap Acidosis, ABG with hypoxia # Leukocytosis could be pancreatitis vs aspiration on cefepime, pt not on prednisolone Recs - NPO, Banana bag, add K 40 meq to banana bag and iv fluids D51/2 NS at 125 cc/ hr - BMP Q8 for K - Will give Lactulose Enema - Will get CT A+P for pancreatitis with leukocytosis and r/o obstruction - Iv ativan/librium ATC - c/w iv cefepime - Lactulose and Rifaximin - Carolina - Replete K - Head of bed elevation - c/w ICU care as pt has impending respiratory failure with hypoxia and has AMS Problems: Subjective 24 Hr Interval Summary Free Text/Dictation Pt oriented x 1, followed some commands, however still lethargic, goes back to sleep No bm even though on lactulose and rifaximin ATC K 2.7 Exam/Review of Systems Vital Signs Vitals Vital Signs Date Time Temp Pulse Resp B/P Pulse Ox O2 Delivery O2 Flow Rate FiO2 01/06/17 08:00 98.4 103 24 137/90 100 Nasal Cannula 2.0 Intake and Output 01/05/17 01/05/17 01/06/17 14:59 22:59 06:59 Intake Total 1035 ml 600 ml 1049 ml Output Total 1240 ml 585 ml 420 ml Balance -205 ml 15 ml 629 ml Exam Gen:Lethargic, moving extremities HEENT: blood tinged teeth, Scleral icterus Neck:supple CVS: Regular rate and rthym Lungs: decreased breath sounds b/l Abdomen: distended, Ext: no edema Results Result Diagram: 01/06/17 0625 01/06/17 0625 Results 24 hrs Laboratory Tests Test 01/05/17 10:27 01/05/17 11:35 01/05/17 14:10 01/06/17 06:25 Blood Gas Specimen Source Blood arterial Arterial Blood Date Drawn 01/05/2017 11:06:07 AM Arterial Blood pH (Temp corrected) 7.380 Arterial Blood pCO2 (Temp correct) 27.2 L Arterial Blood pO2 (Temp corrected) 65.7 L Arterial Blood HCO3 15.7 L Arterial Blood Base Excess -8.2 L Arterial Blood Oxygen Saturation 92.0 L Prateek Test N/A Arterial Blood Gas Puncture Site LB Arterial Blood Carboxyhemoglobin 1.2 Arterial Blood Methemoglobin 0.2 Blood Gas A-a O2 Differential 65.9 H Oxyhemoglobin Percent 90.7 L Total Hemoglobin 10.1 L Blood Gas Temperature 37.0 Blood Gas Modality NASAL CANNULA FiO2 23.0 Blood Gas Notified Whom TM Blood Gas Notified Time 01/05/2017 11:14:48 AM Potassium Level 2.9 *L 2.7 *L Creatinine Kinase MB (Mass) 0.76 Lactic Acid Level 1.3 Magnesium Level 2.1 2.0 White Blood Count 23.8 H Red Blood Count 2.56 L Hemoglobin 9.4 L Hematocrit 27.9 L Mean Corpuscular Volume 109.0 H Mean Corpuscular Hemoglobin 36.7 H Mean Corpuscular Hemoglobin Concent 33.7 Red Cell Distribution Width 19.9 H Platelet Count 114 L Mean Platelet Volume 10.5 H Neutrophils % 78.5 H Lymphocytes % 7.2 L Monocytes % 9.3 Eosinophils % 0.2 Basophils % 0.2 Nucleated Red Blood Cells % 0.3 H Neutrophils # 18.7 H Lymphocytes # 1.7 Monocytes # 2.2 H Eosinophils # 0.0 Basophils # 0.1 Nucleated Red Blood Cells # 0.1 H Sodium Level 142 Chloride Level 119 H Carbon Dioxide Level 16 L Anion Gap 10 Blood Urea Nitrogen 20 Creatinine 1.83 H Glucose Level 112 Calcium Level 6.8 L Phosphorus Level 2.8 Total Bilirubin Pending Direct Bilirubin Indirect Bilirubin Pending Aspartate Amino Transf (AST/SGOT) 142 H Alanine Aminotransferase (ALT/SGPT) 32 Alkaline Phosphatase 315 H Ammonia 134 H Total Protein 6.1 # Albumin 2.1 L Globulin 4.00 H Albumin/Globulin Ratio 0.52 Lipase 2022 H Medications Medications Current Medications Pantoprazole 40 mg 40 mg BID@06,18 IV Last administered on 01/06/17 05:40; Admin Dose 40 MG; Start 01/03/17 at 06:00 Multivitamins 10 ml/Thiamine HCl 100 mg/Folic Acid 1 mg/Sodium Chloride 1,011.2 ml @ 125 mls/ hr DAILY@09 IVPB Last administered on 01/06/17 08:25; Admin Dose 125 MLS/HR; Start 01/03/17 at 09:00 Dextrose/Sodium Chloride (D5-1/2ns) 1,000 ml @ 125 mls/hr Q8H IV Last administered on 01/06/17 03:24; Admin Dose 125 MLS/HR; Start 01/02/17 at 20:00 Ondansetron HCl (Zofran Inj) 4 mg Q6H PRN IV NAUSEA AND/OR VOMITING Last administered on 01/03/17 14:52; Admin Dose 4 MG; Start 01/02/17 at 23:00 Docusate Sodium (Colace) 100 mg Q12H PRN PO CONSTIPATION; Start 01/02/17 at 23: 00 Chlordiazepoxide (Librium) 25 mg TID PO Last administered on 01/06/17 08:33; Admin Dose 25 MG; Start 01/04/17 at 09:00 Rifaximin (Xifaxan) 550 mg BID PO Last administered on 01/05/17 23:28; Admin Dose 550 MG; Start 01/04/17 at 11:00 Metoclopramide HCl (Reglan) 10 mg Q6 IV Last administered on 01/06/17 05:40; Admin Dose 10 MG; Start 01/05/17 at 00:00 Lactulose (Enulose) 20 gm Q4 PO Last administered on 01/06/17 08:25; Admin Dose 20 GM; Start 01/05/17 at 09:00 Lorazepam 1 mg 1 mg Q2 PRN IV ANXIETY Last administered on 01/06/17 03:55; Admin Dose 1 MG; Start 01/05/17 at 13:00 Cefepime HCl (Maxipime 1gm/50 ml (Pmx)) 50 ml @ 100 mls/hr Q12 IVPB Last administered on 01/06/17t 08:22; Admin Dose 100 MLS/HR; Start 01/05/17 at 21:00 IV Flush (NS 10 ml) 10 ml PRN PRN IV IV PROTOCOL; Start 01/05/17 at 18:30 Lactulose (Lactulose Enema) 100 ml Q6 SC ; Start 01/06/17 at 09:00; Status BRAEDEN TAM MD Jan 06, 2017 08:51
[2017-01-06] MEDS ORDERED: D5W-0.45 NACL + KCL 40 MEQ 1,000 ML IV SCH (10:00)
[2017-01-06] MEDS ORDERED: [UNRECOGNIZED DRUG - OTHER] IVPB SCH (10:30)
[2017-01-06] MEDS ORDERED: MULTIVITAMINS IVPB SCH (10:30)
[2017-01-06] MEDS ORDERED: POTASSIUM CHLORIDE IVPB SCH (10:30)
[2017-01-06] MEDS ORDERED: THIAMINE IVPB SCH (10:30)
[2017-01-06] MEDS ORDERED: FOLIC ACID IVPB SCH (10:30)
--- NOTE | 2017-01-06 10:38 | RADRPT ---
PROCEDURE: CT Abdomen and Pelvis without contrast. CLINICAL INDICATION: Pancreatitis. TECHNIQUE: Routine axial tomographic images of the abdomen and pelvis were obtained from the domes of the diaphragm to the symphysis pubis. The patient was scanned withoutoral or intravenous contra st. Coronal and sagittal reformatted images were obtained from the axial source images. Images were reviewed on a high-resolution PACS workstation. The total exam CTDI equals 17.77 mGy and the total exam DLP equals 1166.12 mGy-cm. One or more of the following dose reduction techniques were used: Automated exposure control, adjustment of the mA and / or kV according to patient size, or use of it erative reconstruction technique. COMPARISON: None. FINDINGS: Mild motion artifact limits evaluation. The visualized portions of the lung bases demonstrate small bilateral pleural effusions with bibasilar consolidation. There are nodular ground-glass opacities w ithin the left lower lobe. There is extensive streak artifact from the patient's arms in the field of view. Evaluation of the i ntra-abdominal solid organs is limited on this noncontrast examination. The liver is enlarged. The re is no intra or extrahepatic biliary dilatation. The gallbladder is unremarkable by CT criteria. There is a perihepatic fluid collection which appear subcapsular, measuring up to 3 cm along the in ferior margin of the liver. The spleen is enlarged. There is small perisplenic free fluid. There is fullness of the pancreatic parenchyma with peripancreatic fat stranding. The adrenal glands are unre markable. The kidneys are symmetric in size. No renal, ureteral, or bladder calculi are identified. No perine phric inflammatory changes are identified. The urinary bladder is decompressed by a Carolina catheter. There is a nasogastric tube in place with tip in the gastric fundus. There are multiple non to mildl y distended fluid-filled loops of small bowel. Air and stool are seen throughout the colon which is normal in caliber but demonstrates a somewhat featureless appearance. The appendix is not visualized . There is small volume pelvic ascites. No intraperitoneal free air or abscess is identified. There is diffuse mesenteric soft tissue stranding. The pelvic organs are grossly unremarkable. No retrop eritoneal, mesenteric, or inguinal lymphadenopathy is identified. The aorta is normal in caliber. The osseous structures are unremarkable. No significant subcutaneous soft tissue abnormalities are seen. IMPRESSION: 1. Examination is technically limited secondary to absence of contrast as well as streak artifact f rom the patient's arms in the field of view. 2. There is fullness of the pancreatic parenchyma with peripancreatic fat stranding, suggesting hylton creatitis. Unable to assess for pancreatic necrosis or splenic vein thrombosis with absence of IV co ntrast. 3. There is a perihepatic fluid collection measuring up to 3 cm in diameter along the inferior janeth n of the liver which appears subcapsular. There is small perisplenic free fluid and small volume pel ken ascites. 4. Hepatosplenomegaly. 5. Diffuse mesenteric edema. 6. Multiple non to mildly distended fluid-filled loops of small bowel. Air and stool is seen throug hout the colon. Findings may reflect ileus or partial small bowel obstruction. 7. Relative featureless appearance of the colon, may reflect chronic colitis. There is no mucosal t hickening to suggest acute colitis, although again, absence of IV contrast limits evaluation. 8. Nasogastric tube with tip in the gastric fundus. 9. Carolina catheter in the urinary bladder. RPTAT: HH .Josie Merritt MD, MD Date Time Electronically viewed and signed by .Josie Merritt MD, on 01/06/2017 10:37 .G/
[2017-01-06] MEDS: RIFAXIMIN 550 MG TAB PO SCH ×2 (10:53→21:08)
[2017-01-06] MEDS: LACTULOSE ENEMA 1,000 ML BTL PR SCH ×3 (10:55→18:00)
[2017-01-06] MEDS: MEROPENEM 500MG/50 ML (PMX) 50 ML IVPB SCH ×3 (12:55→21:50)
--- NOTE | 2017-01-06 12:58 | PN ---
DATE: 01/06/2017 SUBJECTIVE DATA: No acute changes overnight. The patient is lethargic, in no distress. No fevers. Temperature 98.4, pulse 103, respirations 24, blood pressure 137/90, saturation 100 on 2 L. LABORATORY AND DIAGNOSTIC DATA: WBC 23.8. H and H 9.4 and 27.9, platelets 114, neutrophils 78.5, sodium 142, potassium 2.7, BUN 20, creatinine 1.83, total bilirubin 21.9. MICROBIOLOGY: Urine culture negative. Nares swab negative. DIAGNOSTICS: CT of the abdomen and pelvis revealed technically limited examination. Fullness of the pancreatic parenchyma with peripancreatic fat substranding suggesting pancreatitis. Unable to assess pancreatic necrosis or splenic vein new processes with absence of IV contrast. There is a perihepatic fluid collection measuring up to 3 cm in diameter along the inferior margin of the liver which appears subcapsular. Small perisplenic free fluid and small volume pelvic ascites. Hepatosplenomegaly, diffuse mesenteric edema. Multiple to mildly distended fluid- filled loops of small bowel. Air and stool is seen throughout the colon. Findings may reflect ileus or partial small bowel obstruction. Relative appearance of the colon may reflect chronic colitis. NG tube within with the tip in the gastric fundus. Carolina catheter in the urinary bladder. INDWELLINGS: The patient has NG tube, Carolina, PICC line placed on 01/05/2017. ANTIMICROBIALS: He is on cefepime. He is also on Rifaximin. OBJECTIVE DATA: GENERAL: Chronically ill-appearing, middle-aged man, who is lethargic, in no distress. HEENT: Head atraumatic, normocephalic. Sclerae anicteric. Buccal mucosa dry. NECK: Supple. Trachea midline. CHEST: Rise symmetrical. Breath sounds diminished at the bases. HEART: S1, S2. ABDOMEN: Distended, positive ascites. Mild tenderness on palpation. Bowel sounds present. EXTREMITIES: Without cyanosis. SKIN: Positive for jaundice. ASSESSMENT: 1. Severe sepsis with acute encephalopathy. 2. Possible healthcare-associated pneumonia versus aspiration, versus both. 3. Evidence of acute pancreatitis per CT of the abdomen with a lipase of 2022. Rule out choledocholithiasis. Rule out pancreatic necrosis. 4. Questionable ileus versus partial small bowel obstruction. 5. Ascites. Rule out spontaneous bacterial peritonitis. 6. Possible chronic colitis. 7. Perihepatic fluid collection of unclear significance, possible infectious. 8. Liver cirrhosis with a history of is esophageal varices PLAN: We are going to start patient on meropenem. Send blood cultures. Consider surgical evaluation. Continue anti- aspiration measures. We will add also Flagyl for possible colitis. Follow GI recommendations. Dictated By: Thom Loyd NP /derek/nancy /Document#: [id number]
[2017-01-06] MEDS: D5W-0.45 NACL + KCL 40 MEQ 1,000 ML IV SCH ×2 (14:00→18:01)
[2017-01-06] MEDS: metroNIDAZOLE 500 MG/NS (PMX) 100 ML IVPB SCH ×2 (14:22→21:50)
[2017-01-06 14:52] LABS: CALCIUM 6.4 mg/dl (8.4-10.2); CREATININE 1.93 mg/dl (0.61-1.24)
[2017-01-06] MEDS ORDERED: FAT EMULSION 20% 500 ML IV SCH (15:00)
[2017-01-06] MEDS ORDERED: TPN 1,000 ML IV SCH ×2 (15:00→17:00)
[2017-01-06] MEDS: ACCU-CHEK XX SCH ×2 (17:52→21:23)
--- NOTE | 2017-01-06 18:01 | CONS ---
Date/Time of Note Date/Time of Note DATE: 01/06/17 TIME: 17:39 Assessment/Plan Assessment/Plan Chief Complaint/Hosp Course 1. Paralytic ileus 2nd acute processes. Doubt obstruction. -Bowel regimen -Monitor 2. Acute on chronic alcoholic pancreatitis with peripancreatic fluid -Supportive measures -Judicious fluid management -Trend labs -Encourage cessation 3. Acute GI bleed from gastritis and esophageal varices secondary to alcoholism -Transfuse as needed -Supportive measures -Octreotide -Protonix -Correct coagulopathy and platelet dysfunction 4. Anemia secondary to above -As above 5. Leukocytosis, multifactorial with SIRS and steroid therapy. Rule out infectious etiology -Close monitoring -Antibiotics for bacterial translocation 6. Alcoholic hepatitis with hepatosplenomegaly -Medical and GI optimization 7. Chronic alcohol abuse -Encourage cessation 8. Subcapsular liver collection possible hematoma versus other -Monitor 9. Electrolyte imbalance -Correct with replacements and fluid management Thank you very much for consulting us in this patient's care, Problems: Consultation Date/Type/Reason Admit Date/Time Jan 02, 2017 at 19:30 Date of Consultation: Jan 06, 2017 Type of Consultation: General surgical Reason for Consultation Alcoholic pancreatitis Ileus versus SBO GI bleed Anemia Leukocytosis Referring Provider: BRAEDEN LUNSFORD MD Hx of Present Illness Jignesh Saleem is a 36yo male with significant comorbidities specifically chronic alcohol abuse, pancreatitis, and liver disease. Patient was most recently, January 01, taken to [facility] with melena, fatigue , chills, and 1 episode of small volume hematemesis. Patient was also having dark stool for 4 weeks before admission. Denied any bright red per rectum. He was drinking half 750 mL of vodka a day. Continued to drink during this time. For past 2 weeks, he had progressively become fatigued and had diminished appetite. He has also noticed increased abdominal pain. He denied any history of withdrawal seizures, but he became tremulous. Patient was found to have anemia and was started on octreotide and Protonix drips. He was also started on Rocephin and prednisolone for alcoholic hepatitis and was transferred to [facility] for insurance reason. He underwent colonoscopy and EGD by GI and was found to have gastritis and varices but no active bleeding. On imaging he was found to have possible ileus versus obstruction is also found to have edema of bowel and pancreas and peripancreatic fluid and subcapsular liver fluid.. Surgical consult is obtained further evaluation and treatment. Constitutional: disoriented, poor po, No chills, No diaphoresis, No febrile Eyes: No discharge, No redness ENT: bleeding, No discharge, No dysphagia Respiratory: No cough, No shortness of breath Cardiovascular: No chest pain, No edema, No palpitations Gastrointestinal: blood, constipation, nausea, pain Genitourinary: No bleeding, No dysuria Musculoskeletal: No back pain, No bone/joint pain Skin: bruising, other (Jaundice), No erythema Neurologic: confusion, dizziness Endocrine: No polydypsia, No polyuria Psychological: confusion, No nl mood/affect Immunologic: No immunodeficiency Past Medical History 1. Chronic alcohol abuse. 2. Hepatitis with acute on chronic liver failure. 3. Alcoholic pancreatitis. 4. Depression. 5. Hematemesis 6. Melena, bright red blood per rectum. 7. Anemia 8. Gastrointestinal bleed 9. Esophageal varices 10. Gastritis 11. Alcohol withdrawal with a history of chronic alcohol abuse. 12. Hyperbilirubinemia, likely secondary to alcoholic hepatitis. 13. Hypokalemia at [facility], which has been resolved. 14. Acute kidney injury, could be prerenal secondary to dehydration, alcohol abuse, decreased oral intake versus hepatorenal. 15. Paralytic ileus 16. Subcapsular hepatic fluid collection Past Surgical History Past Surgical Hx: no surgical history Family History Significant Family History: no pertinent family hx Social History Alcohol Use: heavy (Two years of daily alcohol use. Drinks a half of 750 mL vodka daily. ) Smoking Status: Current every day smoker (Half a pack per day) Drug Use: none Exam/Review of Systems Vital Signs Vitals Vital Signs Date Time Temp Pulse Resp B/P Pulse Ox O2 Delivery O2 Flow Rate FiO2 01/06/17 16:00 108 01/06/17 16:00 98.8 26 130/77 100 Room Air 01/06/17 08:00 2.0 Intake and Output 01/05/17 01/05/17 01/06/17 15:00 23:00 07:00 Intake Total 1175 ml 935 ml 1049 ml Output Total 1170 ml 535 ml 460 ml Balance 5 ml 400 ml 589 ml Exam Constitutional: No distress, No oriented Psych: confusion, No nl mood/affect Head: atraumatic, normocephalic, No hematomas, No lacerations Eyes: EOMI, PERRL, icteric ENMT: nl external ears & nose, nl lips & teeth, No mucosa pink and moist Neck: non-tender, supple, No jvd Respiratory: normal air movement, No congested cough, No labored breathing Cardiovascular: No edema, No regular rate and rhythm Gastrointestinal: soft, tender (Minimal), No distended, No rebound or guarding Musculoskeletal: nl extremities to inspection, No joint tenderness Extremities: normal pulses, No calf tenderness, No cyanosis Neurological: No nl mental status, No nl speech, No nl strength Skin: rash or lesions (Jaundice), No diaphoresis, No nl turgor Lymph: nl lymph nodes, nontender Results Result Diagram: 01/06/17 0625 01/06/17 1335 Results 24 hrs Laboratory Tests Test 01/06/17 06:25 01/06/17 13:35 White Blood Count 23.8 H Red Blood Count 2.56 L Hemoglobin 9.4 L Hematocrit 27.9 L Mean Corpuscular Volume 109.0 H Mean Corpuscular Hemoglobin 36.7 H Mean Corpuscular Hemoglobin Concent 33.7 Red Cell Distribution Width 19.9 H Platelet Count 114 L Mean Platelet Volume 10.5 H Neutrophils % 78.5 H Lymphocytes % 7.2 L Monocytes % 9.3 Eosinophils % 0.2 Basophils % 0.2 Nucleated Red Blood Cells % 0.3 H Neutrophils # 18.7 H Lymphocytes # 1.7 Monocytes # 2.2 H Eosinophils # 0.0 Basophils # 0.1 Nucleated Red Blood Cells # 0.1 H Sodium Level 142 144 Potassium Level 2.7 *L 3.0 L Chloride Level 119 H 120 H Carbon Dioxide Level 16 L 16 L Anion Gap 10 11 Blood Urea Nitrogen 20 19 Creatinine 1.83 H 1.93 H Glucose Level 112 91 Calcium Level 6.8 L 6.4 L Phosphorus Level 2.8 Magnesium Level 2.0 Total Bilirubin 21.9 H Direct Bilirubin Indirect Bilirubin 1.8 H Aspartate Amino Transf (AST/SGOT) 142 H Alanine Aminotransferase (ALT/SGPT) 32 Alkaline Phosphatase 315 H Ammonia 134 H Total Protein 6.1 # Albumin 2.1 L Globulin 4.00 H Albumin/Globulin Ratio 0.52 Lipase 2023 H Medications Medications Current Medications Pantoprazole (Protonix Iv) 40 mg BID@06,18 IV Last administered on 01/06/17 05 :40; Admin Dose 40 MG; Start 01/03/17 at 06:00 Ondansetron HCl (Zofran Inj) 4 mg Q6H PRN IV NAUSEA AND/OR VOMITING Last administered on 01/03/17 14:52; Admin Dose 4 MG; Start 01/02/17 at 23:00 Docusate Sodium (Colace) 100 mg Q12H PRN PO CONSTIPATION; Start 01/02/17 at 23: 00 Rifaximin (Xifaxan) 550 mg BID PO Last administered on 01/06/17 10:53; Admin Dose 550 MG; Start 01/04/17 at 11:00 Metoclopramide HCl (Reglan) 10 mg Q6 IV Last administered on 01/06/17 12:55; Admin Dose 10 MG; Start 01/05/17 at 00:00 Lactulose (Enulose) 20 gm Q4 PO Last administered on 01/06/17 08:25; Admin Dose 20 GM; Start 01/05/17 at 09:00; Status Future Hold Lorazepam (Ativan) 1 mg Q2 PRN IV ANXIETY Last administered on 01/06/17 09:40 ; Admin Dose 1 MG; Start 01/05/17 at 13:00 IV Flush (NS 10 ml) 10 ml PRN PRN IV IV PROTOCOL; Start 01/05/17 at 18:30 Lactulose (Lactulose Enema) 100 ml Q6 VA Last administered on 01/06/17 14:24; Admin Dose 100 ML; Start 01/06/17 at 10:00 Chlordiazepoxide 25 mg 25 mg BID PO ; Start 01/06/17 at 21:00 Meropenem/Sodium Chloride 50 ml @ 100 mls/hr Q8 IVPB Last administered on 01/06 12:55; Admin Dose 100 MLS/HR; Start 01/06/17 at 12:30 Metronidazole 100 ml @ 100 mls/hr Q8 IVPB Last administered on 01/06/17 14:22 ; Admin Dose 100 MLS/HR; Start 01/06/17 at 14:00 Potassium Chloride/Dextrose/ Sod Cl 1,000 ml @ 60 mls/hr [id number] IV ; Start at 14:00 Fat Emulsion Intravenous (Liposyn Ii 20%) 500 ml @ 21 mls/hr [id number] IV ; Start 01/06/17 at 15:00; Status Future Hold Diagnostic Test (Pha) 1 ea 1 ea Q4 XX ; Start 01/06/17 at 17:00 Total Parenteral Nutrition 1,000 ml @ 80 mls/hr [id number] IV ; Start 01/07/17 at 17:00 Total Parenteral Nutrition (Tpn) 1,000 ml @ 40 mls/hr Q24H IV ; Start 01/06/17 at 17:00; Stop 01/07/17 at 17:59 PETER TAMEZ MD Jan 06, 2017 17:51
--- NOTE | 2017-01-06 22:56 | CONS ---
DATE OF ADMISSION: 01/02/2017 DATE OF CONSULTATION: 01/06/2017 SUBJECTIVE: A 36-year-old male with a history of alcohol abuse was brought to the hospital for hematemesis. Patient was jaundiced and was in DT despite taking anxiolytic medication, both Librium and Ativan, needed to be transferred to intensive care unit. Patient was stabilized in intensive care unit, underwent upper endoscopy for his upper GI bleeding. Severe gastritis was identified. There was no Pau-Weinberg tear or esophageal varicose vein or gastric varicose vein. Patient had no evidence of any altered blood in the stomach. He still remains lethargic. OBJECTIVE: VITAL SIGNS: Stable. ABDOMEN: Soft but diffusely tender. Bowel sounds heard. EXTREMITIES: No edema. LUNGS: Clear. CARDIOVASCULAR: No murmur, gallop, or click. CENTRAL NERVOUS SYSTEM: He responds to deep touch. As per the mother, he responded yesterday by using simple sentences, yes and no, and was oriented this morning as per the mother. LABORATORY DATA: WBC still high, which is 23,000, hematocrit is 27.9, which has remained stable. Platelet count is 114,000, which is normal. His creatinine which was 1.83 is still at 1.93. Potassium is 3. Total bilirubin remained elevated, 21.9 but did stabilize. Ammonia is 134. Lipase which was 7000 has dropped down to 2023. CAT scan of the abdomen showed pancreatitis. IMPRESSION: 1. Hepatic encephalopathy. 2. Alcoholic liver disease with jaundice, bilirubin of 21.9. 3. Mild coagulopathy secondary to alcoholic liver disease. 4. Renal insufficiency. 5. Delirium tremens. PLAN: Start the patient on TPN. Continue IV hydration. Continue thiamine, Ativan on as needed basis for his agitation. Will continue with lactulose and rifaximin, and we have given him lactulose enema and oddly after that patient had a good bowel movement. Hopefully, he responds to p.o. lactulose. Once his ileus gets resolved then will start feeding him through the NG tube. Dictated By: Renato Mercer MD /derek/rod /Document#: [id number]
[2017-01-06 23:31] LABS: CREATININE 1.79 mg/dl (0.61-1.24); POTASSIUM 4.5 mmol/L (3.5-5.1)
[2017-01-07] VITALS (40 sets, daily range): BP systolic 110–153; BP diastolic 49–95; PULSE 98–119; RESP 23–53
[2017-01-07] MEDS: METOCLOPRAMIDE 10 MG INJ IV SCH ×4 (00:12→17:27)
[2017-01-07] MEDS: LACTULOSE ENEMA 1,000 ML BTL PR SCH ×4 (00:13→17:27)
[2017-01-07] MEDS: ACCU-CHEK XX SCH ×7 (01:00→22:53)
[2017-01-07] MEDS: LORAZEPAM 2 MG INJ IV PRN ×5 (02:12→22:53)
[2017-01-07 05:59] LABS: ABNORMAL IP MESSAGE 1; BASOPHIL # 0.1 10^3/ul (0.0-0.1); BASOPHILS % 0.2 % (0.0-2.0); EOSINOPHILS # 0.1 10^3/ul (0.0-0.5); EOSINOPHILS % 0.2 % (0.0-7.0); HEMATOCRIT 26.4 % (42.0-52.0); HEMOGLOBIN 8.9 g/dl (14.0-18.0); LYMPHOCYTES # 1.4 10^3/ul (0.8-2.9); LYMPHOCYTES % 6.3 % (15.0-51.0); MEAN CORPUSCULAR HEMOGLOBIN 37.1 pg (29.0-33.0); MEAN CORPUSCULAR HGB CONC 33.7 g/dl (32.0-37.0); MONOCYTE # 2.3 10^3/ul (0.3-0.9); MONOCYTES % 10.1 % (0.0-11.0); NEUTROPHIL # 17.9 10^3/ul (1.6-7.5); NEUTROPHILS % 78.6 % (39.0-77.0); NUCLEATED RED BLOOD CELLS # 0.1 10^3/ul (0.0-0.0); NUCLEATED RED BLOOD CELLS% 0.3 /100WBC (0.0-0.0); POSITIVE DIFF @See below; RED CELL DISTRIBUTION WIDTH 20.5 % (11.5-14.5); WHITE BLOOD COUNT 22.8 10^3/ul (4.8-10.8)
[2017-01-07] MEDS: PANTOPRAZOLE 40 MG INJ IV SCH ×2 (06:19→17:27)
[2017-01-07] MEDS: metroNIDAZOLE 500 MG/NS (PMX) 100 ML IVPB SCH ×3 (06:19→21:34)
[2017-01-07] MEDS: MEROPENEM 500MG/50 ML (PMX) 50 ML IVPB SCH ×3 (06:19→21:34)
[2017-01-07 06:32] LABS: ALBUMIN 2.2 g/dl (3.3-4.9); ALBUMIN/GLOBULIN RATIO 0.51; BILIRUBIN,INDIRECT 2.1 mg/dl (0-1.1); CALCIUM 6.1 mg/dl (8.4-10.2); CREATININE 1.85 mg/dl (0.61-1.24); POTASSIUM 3.6 mmol/L (3.5-5.1); TOTAL PROTEIN 6.5 g/dl (6.1-8.1)
[2017-01-07 06:52] LABS: PLATELET COUNT 106 10^3/UL (140-415)
[2017-01-07] MEDS ORDERED: SUCCINYLCHOLINE CHLORIDE 100 MG/5 ML SYG IV ONE (07:00)
[2017-01-07] MEDS ORDERED: ETOMIDATE 20 MG INJ ONE (07:00)
[2017-01-07 07:07] LABS: BILIRUBIN,DIRECT 18.9 mg/dl (0.00-0.20)
[2017-01-07 07:45] LABS: MAGNESIUM 2.1 mg/dl (1.7-2.5)
[2017-01-07] MEDS: POTASSIUM CHLORIDE 50 ML IVPB PRN ×3 (08:55→22:57)
[2017-01-07] MEDS: CHLORDIAZEPOXIDE 25 MG CAP PO SCH ×2 (10:45→21:33)
[2017-01-07] MEDS: RIFAXIMIN 550 MG TAB PO SCH ×2 (10:46→21:33)
[2017-01-07 10:57] LABS: AADO2 Arterial 75.6 mmHg (7.0-24.0); Allen Test ACCEPTAB; Arterial Base Excess -9.7 mmol/L (-3.0-3); Arterial COHb 0.8 % (0.0-3.0); Arterial Fraction of Oxyhgb 75.1 % (93.0-99.0); Arterial HCO3 14.1 mmol/L (22.0-26.0); Arterial MetHb 0.2 % (0.0-1.5); Arterial Total Hemglobin 10.3 g/dl (12.0-18.0); MODE ROOM AIR
--- NOTE | 2017-01-07 11:27 | PN ---
Date/Time of Note Date/Time of Note DATE: 01/07/17 TIME: 11:08 Assessment/Plan Lines/Catheters IV Catheter Type (from [facility]): PICC Line [place] in Place (from [facility]): Yes Assessment/Plan Chief Complaint/Hosp Course 1. Paralytic ileus 2nd acute processes. Doubt obstruction. Now with Rectal tube output; abdomen less distended -Bowel regimen -Monitor 2. Acute on chronic alcoholic pancreatitis with peripancreatic fluid: lipase improving; abdomen distention/tenderness improved -Supportive measures -Judicious fluid management -Trend labs -Encourage cessation 3. Acute GI bleed from gastritis and esophageal varices secondary to alcoholism ; dried blood noted in mouth, no output from ng tube -Transfuse as needed -Supportive measures -Octreotide -Protonix -Correct coagulopathy and platelet dysfunction 4. Anemia secondary to above -As above 5. Leukocytosis, multifactorial with SIRS and steroid therapy. Rule out infectious etiology: improving -Close monitoring -Antibiotics for bacterial translocation 6. Alcoholic hepatitis with hepatosplenomegaly -Medical and GI optimization 7. Chronic alcohol abuse -Encourage cessation 8. Subcapsular liver collection possible hematoma versus other -Monitor 9. Electrolyte imbalance -Correct with replacements and fluid management 10. Alcohol withdrawal with tachypnea, tachycardia and obvious tremors -supportive -?[facility] Thank you. Patient seen and examined in collaboration with Dr. Bob Tristan. Problems: Subjective 24 Hr Interval Summary Diaphoretic, tachypneic with obvious tremors. Responsive to minimal stimuli. + rectal tube output. No output patti ng tube. No fevers, chills, seizures. Exam/Review of Systems Vital Signs Vitals Vital Signs Date Time Temp Pulse Resp B/P Pulse Ox O2 Delivery O2 Flow Rate FiO2 01/07/17 08:00 109 01/07/17 06:00 42 130/83 98 Room Air 01/07/17 04:00 98.8 01/06/17 08:00 2.0 Intake and Output 01/06/17 01/06/17 01/07/17 15:00 23:00 07:00 Intake Total 635 ml 975 ml 700 ml Output Total 405 ml 1190 ml 1375 ml Balance 230 ml -215 ml -675 ml Exam Free Text/Dictation Constitutional: No distress, No oriented, diaphoretic, tremulous, Psych: confusion: responds to minimal stimuli No nl mood/affect Head: atraumatic, normocephalic, No hematomas, No lacerations Eyes: EOMI, PERRL, icteric ENMT: nl external ears & nose, nl lips & teeth, dried blood oral, ng tube without drainage No mucosa pink and moist Neck: non-tender, supple, No jvd Respiratory: normal air movement, tachypneic No congested cough, No labored breathing Cardiovascular: No edema, No regular rate and rhythm: ST Gastrointestinal: soft, tender (Minimal), +rectal tube output No distended, No rebound or guarding Musculoskeletal: nl extremities to inspection, No joint tenderness Extremities: normal pulses, No calf tenderness, No cyanosis Neurological: No nl mental status, No nl speech, No nl strength Skin: rash or lesions (Jaundice), No diaphoresis, No nl turgor Lymph: nl lymph nodes, nontender Results Result Diagram: 01/07/17 0517 01/07/17 0517 ELIO GIBBONS NP Jan 07, 2017 11:18
--- NOTE | 2017-01-07 11:58 | PN ---
Date/Time of Note Date/Time of Note DATE: 01/07/17 TIME: 11:55 Assessment/Plan VTE Prophylaxis VTE Prophylaxis Intervention: SCD's Lines/Catheters IV Catheter Type (from Nrsg): PICC Line Central line still needed: Yes Urinary Cath still in place: Yes Reason Cath still needed: urinary retention Assessment/Plan Chief Complaint/Hosp Course 1. Upper GI bleed s/P EGD with gastritis and gastroparesis on Protonix and Reglan 2. ETOH withdrawal 3. ETOH pancreatitis with Lipase 7690> trending down to 1999 4. Acute on chronic liver failure likely Etoh abuse with elevated INR, Hyperbilirubenemia, low platelets, 5. Hepatic encephalopathy with elevated Ammonia levels still 134 6. HX Depression 7. Hypokalemia 8. NICOLAS likely prerenal vs HRS, Cr peaked to 2.12, 1.8 today 9. Gap Acidosis, ABG with severe hypoxia, doubt true arterial sample 10. Leukocytosis could be pancreatitis vs aspiration on cefepime, pt not on prednisolone 11. Hx of Bradycardia 12. Problems: Assessment/Plan - NPO, NG tube on suction, continue Banana bag, - BMP Q8 for K - Iv ativan/librium/diazepam ATC - c/w iv cefepime - Lactulose and Rifaximin - keep Carolina - Replete K - Head of bed elevation Subjective 24 Hr Interval Summary Subjective hx not possible: pt critical status Exam/Review of Systems Vital Signs Vitals Vital Signs Date Time Temp Pulse Resp B/P Pulse Ox O2 Delivery O2 Flow Rate FiO2 01/07/17 08:00 109 01/07/17 06:00 42 130/83 98 Room Air 01/07/17 04:00 98.8 01/06/17 08:00 2.0 Intake and Output 01/06/17 01/06/17 01/07/17 15:00 23:00 07:00 Intake Total 635 ml 975 ml 700 ml Output Total 405 ml 1190 ml 1375 ml Balance 230 ml -215 ml -675 ml Exam icteric Constitutional: non-verbal Head: normocephalic ENMT: nl external ears & nose Neck: supple Respiratory: diminished breath sounds Cardiovascular: regular rate and rhythm (tachycardia) Gastrointestinal: distended, hepatomegaly Results Result Diagram: 01/07/1751601/07/17516 Results 24 hrs Laboratory Tests Test 01/06/17 13:35 01/06/17 17:51 01/06/17 21:18 01/06/17 22:27 Sodium Level 144 141 Potassium Level 3.0 L 4.5 Chloride Level 120 H 120 H Carbon Dioxide Level 16 L 11 L Anion Gap 11 15 Blood Urea Nitrogen 19 19 Creatinine 1.93 H 1.79 H Glucose Level 91 334 #H Calcium Level 6.4 L 6.0 L Bedside Glucose 84 123 Test 01/07/17 01:25 01/07/17 04:47 01/07/17 05:17 01/07/17 09:02 Bedside Glucose 126 171 118 White Blood Count 22.8 H Red Blood Count 2.40 L Hemoglobin 8.9 L Hematocrit 26.4 L Mean Corpuscular Volume 110.0 H Mean Corpuscular Hemoglobin 37.1 H Mean Corpuscular Hemoglobin Concent 33.7 Red Cell Distribution Width 20.5 H Platelet Count 106 L Mean Platelet Volume 11.0 H Neutrophils % 78.6 H Lymphocytes % 6.3 L Monocytes % 10.1 Eosinophils % 0.2 Basophils % 0.2 Nucleated Red Blood Cells % 0.3 H Neutrophils # 17.9 H Lymphocytes # 1.4 Monocytes # 2.3 H Eosinophils # 0.1 Basophils # 0.1 Nucleated Red Blood Cells # 0.1 H Sodium Level 146 H Potassium Level 3.6 Chloride Level 125 H Carbon Dioxide Level 14 L Anion Gap 11 Blood Urea Nitrogen 21 H Creatinine 1.85 H Glucose Level 167 # Calcium Level 6.1 L Phosphorus Level 2.0 L Magnesium Level 2.1 Total Bilirubin 21.0 H Direct Bilirubin 18.90 *H Indirect Bilirubin 2.1 H Aspartate Amino Transf (AST/SGOT) 118 H Alanine Aminotransferase (ALT/SGPT) 34 Alkaline Phosphatase 349 H Total Protein 6.5 Albumin 2.2 L Globulin 4.30 H Albumin/Globulin Ratio 0.51 Amylase Level 260 H Lipase 914 H Test 01/07/17 10:33 Blood Gas Specimen Source Blood arterial Arterial Blood Date Drawn 01/07/2017 10:45:20 AM Arterial Blood pH (Temp corrected) 7.373 Arterial Blood pCO2 (Temp correct) 24.8 L Arterial Blood pO2 (Temp corrected) 44.4 *L Arterial Blood HCO3 14.1 L Arterial Blood Base Excess -9.7 L Arterial Blood Oxygen Saturation 75.9 L Prateek Test ACCEPTAB Arterial Blood Gas Puncture Site Right Radial Arterial Blood Carboxyhemoglobin 0.8 Arterial Blood Methemoglobin 0.2 Blood Gas A-a O2 Differential 75.6 H Oxyhemoglobin Percent 75.1 L Total Hemoglobin 10.3 L Blood Gas Temperature 37.0 Blood Gas Modality ROOM AIR FiO2 21.0 Blood Gas Critical Value Read Back I JAMEE PETERSON Blood Gas Notified Whom DT Blood Gas Notified Time 01/07/2017 10:55:06 AM Medications Medications Current Medications Pantoprazole (Protonix Iv) 40 mg BID@18 IV Last administered on 01/07/17 06 :19; Admin Dose 40 MG; Start 01/03/17 at 06:00 Ondansetron HCl (Zofran Inj) 4 mg Q6H PRN IV NAUSEA AND/OR VOMITING Last administered on 01/03/17 14:52; Admin Dose 4 MG; Start 01/02/17 at 23:00 Docusate Sodium (Colace) 100 mg Q12H PRN PO CONSTIPATION; Start 01/02/17 at 23: 00 Rifaximin (Xifaxan) 550 mg BID PO Last administered on 01/07/17 10:46; Admin Dose 550 MG; Start 01/04/17 at 11:00 Metoclopramide HCl (Reglan) 10 mg Q6 IV Last administered on 01/07/17 06:19; Admin Dose 10 MG; Start 01/05/17 at 00:00 Lactulose (Enulose) 20 gm Q4 PO Last administered on 01/06/17 08:25; Admin Dose 20 GM; Start 01/05/17 at 09:00; Status Future Hold Lorazepam (Ativan) 1 mg Q2 PRN IV ANXIETY Last administered on 01/07/17 11:07 ; Admin Dose 1 MG; Start 01/05/17 at 13:00 IV Flush (NS 10 ml) 10 ml PRN PRN IV IV PROTOCOL; Start 01/05/17 at 18:30 Lactulose (Lactulose Enema) 100 ml Q6 TN Last administered on 01/07/17 06:19; Admin Dose 100 ML; Start 01/06/17 at 10:00 Chlordiazepoxide 25 mg 25 mg BID PO Last administered on 01/07/17 10:45; Admin Dose 25 MG; Start 01/06/17 at 21:00 Meropenem/Sodium Chloride 50 ml @ 100 mls/hr Q8 IVPB Last administered on 01/07 06:19; Admin Dose 100 MLS/HR; Start 01/06/17 at 12:30 Metronidazole 100 ml @ 100 mls/hr Q8 IVPB Last administered on 01/07/17 06:19 ; Admin Dose 100 MLS/HR; Start 01/06/17 at 14:00 Potassium Chloride/Dextrose/ Sod Cl 1,000 ml @ 60 mls/hr [id number] IV Last administered on 01/06/17 18:01; Admin Dose 60 MLS/HR; Start 01/06/17 at 14:00 Fat Emulsion Intravenous (Liposyn Ii 20%) 500 ml @ 21 mls/hr [id number] IV ; Start 01/06/17 at 15:00; Status Future Hold Diagnostic Test (Pha) 1 ea 1 ea Q4 XX Last administered on 01/07/17 05:03; Admin Dose 1 EA; Start 01/06/17 at 17:00 Total Parenteral Nutrition 1,000 ml @ 80 mls/hr [id number] IV ; Start 01/07/17 at 17:00 Total Parenteral Nutrition (Tpn) 1,000 ml @ 40 mls/hr Q24H IV Last administered on 01/06/17 17:40; Admin Dose 40 MLS/HR; Start 01/06/17 at 17:00; Stop 01/07/17 at 17:59 KIM HOLLIS Jan 07, 2017 11:58
--- NOTE | 2017-01-07 12:58 | PN ---
DATE: 01/07/2017 SUBJECTIVE DATA: The patient remains obtunded, tachycardic. He is in no distress. Temperature 98.8, pulse 113, respirations 40, blood pressure 116/88, saturation 100 on room air. LABORATORY AND DIAGNOSTIC DATA: WBC 22.8, H and H 8.9 and 26.4, platelets 106, neutrophils 78.6. BUN 21, creatinine 1.15, carbon dioxide 14, total bilirubin 21, alk phos 349. MICROBIOLOGY: Cultures remain negative. DIAGNOSTICS: No new diagnostics today. ANTIMICROBIALS: Patient is on Flagyl and meropenem. INDWELLINGS: Carolina, NG tube, PICC line placed on 01/05/2017. PHYSICAL EXAMINATION: GENERAL: Chronically ill-appearing, middle-aged man, who is obtunded, in no distress. HEENT: Head atraumatic, normocephalic. Sclerae icteric. Buccal mucosa dry. NECK: Supple. CHEST: Rise symmetrical. Breath sounds diminished at the bases. HEART: S1, S2. Tachycardic. ABDOMEN: Distended, hypoactive bowel tones. EXTREMITIES: Without cyanosis. SKIN: Positive for jaundice. ASSESSMENT: 1. Sepsis with acute encephalopathy, tachycardia and ongoing leukocytosis. 2. Acute pancreatitis. 3. Possible aspiration pneumonia. 4. Paralytic ileus. Rule out small-bowel obstruction. 5. Ascites. 6. Liver cirrhosis with a history of esophageal varices. 7. Significant metabolic acidosis. PLAN: Patient is doing poorly. He is hypoxemic and acidotic. He is on TPN, covered with Flagyl and meropenem. He is being seen by multiple consultants. We will continue him on current antibiotics. Continue anti-aspiration measures. Consider starting bicarb drip. The patient may require intubation. Dictated By: Thom Loyd NP /derek/nancy /Document#: [id number]
--- NOTE | 2017-01-07 13:02 | RADRPT ---
PROCEDURE: XR Chest. CLINICAL INDICATION: Pneumonia TECHNIQUE: Single frontal view of the chest was obtained COMPARISON: 01/05/2017 FINDINGS: There is hypoinflation of the lungs and bibasilar atelectasis. This along with portable AP technique accentuates the size of the cardiac silhouette. The heart does not appear to be grossly enlarged. T here is the appearance of mild pulmonary vascular congestion. Bilateral lung densities are seen whic h could represent pulmonary edema. Pneumonia is also possible with interval increase in densities in the lungs greatest in the right lower lung and left upper, mid and lower lung compared to previous study. There is no pleural effusion or pneumothorax seen. Nasogastric tube in stomach. Left PICC line tip near atriocaval junction. ECG leads projected over the chest. IMPRESSION: Hypoinflation lungs and bibasilar atelectasis. Mild pulmonary vascular congestion. Bilateral lung de nsities are seen which could represent pulmonary edema. Pneumonia is also possible with interval inc rease in densities in the lungs greatest in the right lower lung and left upper, mid and lower lung compared to previous study. RPTAT: HJES .Rodrigo Gonzales MD, MD Date Time Electronically viewed and signed by .Rodrigo Gonzales MD, MD on 01/07/2017 13:02 .S/
--- NOTE | 2017-01-07 13:08 | RADRPT ---
PROCEDURE: XR Abdomen. CLINICAL INDICATION: Bowel obstruction TECHNIQUE: 2 portable supine AP abdominal x-rays COMPARISON: CT abdomen and pelvis of 01/06/2017 FINDINGS: There are dilated small bowel loops measuring up to approximately 4.5 cm diameter mildly increased c ompared to previous study with air also seen in nondilated colon. The findings are suggestive of a p artial small bowel obstruction. There are no abnormal calcifications overlying the urinary tracts. The osseus structures are unremarkable. Carolina catheter in bladder. Small phlebolith in right lower p vannesa. Nasogastric tube tip in gastric fundus. IMPRESSION: There are dilated small bowel loops measuring up to approximately 4.5 cm diameter mildly increased c ompared to previous study with air also seen in nondilated colon. The findings are suggestive of a p artial small bowel obstruction. Nasogastric tube tip in gastric fundus. RPTAT: HJES .Rodrigo Gonzales MD, Date Time Electronically viewed and signed by .Rodrigo Gonzales MD, on 01/07/2017 13:08 .S/
[2017-01-07] MEDS: D5W-0.45 NACL + KCL 40 MEQ 1,000 ML IV SCH (13:23)
--- NOTE | 2017-01-07 13:36 | CONS ---
DATE OF ADMISSION: 01/02/2017 DATE OF CONSULTATION: 01/07/2017 HISTORY OF PRESENT ILLNESS: The patient is a 36-year-old male with a history of alcoholic liver disease, he has been drinking on a regular basis. Now patient is in the ICU. He is still mentally obtunded. PHYSICAL EXAMINATION: VITAL SIGNS: He is tachycardic at the time the heart rate goes to around 112. The patient is a afebrile. Respiration goes up to 42 because of for DT. Oxygen saturation on room air is good. The patient moves all the extremities, he gets restless at times. The lip also has dry old blood. Does not allow the staff to do proper oral hygiene. ABDOMEN: Definitely not distended like yesterday, has got a good bowel movement. Tenderness has reduced. Bowel sounds good. Stool is a biliary and in nature. Urine is still dark. LUNGS: Air entry good. EXTREMITIES: No edema. CENTRAL NERVOUS SYSTEM: Moves all the extremities, but still obtunded. LABORATORY: WBC's 22.8, hematocrit is 26.4 which is stable. Platelet count is also stable. Total bilirubin is 21, which is remained stable. Creatinine is 1.85 also is stable. Last INR was 2 days ago, which is 1.8. IMPRESSION: 1. Delirium tremens. The patient is still agitated and confused. 2. Hepatic encephalopathy. 3. Alcoholic liver disease. 4. Pancreatitis. Amylase has come down to 260. Lipase is down to 914. 5. Leukocytosis. 6. Renal insufficiency. Though the urine output is good. PLAN: At this point is to get a KUB and chest x-ray. If there is no evidence of pneumonia, then we will continue to control his DT. Continue lactulose. Continue rifaximin. Continue antibiotic as per ID. Will monitor total bilirubin, INR and creatinine closely and if KUB is normal, I will start him on NG- tube feeding. Still the prognosis remains guarded. If the respiration gets deteriorated and we need to intubate then will proceed with that. Dictated By: Renato Mercer MD /derek/shayy /Document#: [id number] CC: Renato Mercer MD; Lloyd Payton MD;*[facility]*
--- NOTE | 2017-01-07 14:00 | CONS ---
Date/Time of Note Date/Time of Note DATE: 01/07/17 TIME: 13:55 Assessment/Plan Assessment/Plan Additional Assessment/Plan Chest x-ray was reviewed which is showing patchy bilateral infiltrates. ABG showing severe hypoxemia. Assessment and recommendations; 1. Patient admitted with alcoholic cirrhosis with upper GI bleed with hepatic encephalopathy. 2. Hepatorenal syndrome. With acute renal insufficiency. 3. Likely aspiration pneumonia from hematemesis. Continue current supportive care. Patient was intubated at bedside without difficulty. Will obtain follow-up ABG. Continue current antibiotic regimen. Further recommendations per superintendent oil field drilling. Prognosis is guarded. I did have a detailed discussion with the patient's mother at bedside and answered all her questions. Consultation Date/Type/Reason Admit Date/Time Jan 02, 2017 at 19:30 Date of Consultation: Jan 07, 2017 Type of Consultation: Pulmonary/critical care Reason for Consultation Pulmonary consultation requested for evaluation of impending respiratory failure. Next History of presenting illness; patient is a 36-year-old male who was admitted on the of this month with complaints of not feeling well. Upon evaluation patient was diagnosed with alcoholic cirrhosis he also was having upper GI bleed and underwent EGD which showed severe gastritis. Short while ago the patient's condition became unstable with patient becoming more obtunded he was transferred to ICU. By the time I saw the patient was essentially unresponsive was extremely tachypneic and was also having active upper GI bleed. It was decided to immediately intubate the patient at bedside which was readily done without any difficulty. I did get a detailed history from the patient's mother who was present in the room. As well as from medical records. According to the patient's mother patient had no prior medical problems and this is the first time that he has gotten that sick. Past medical history; none. Medications; reviewed. Next Allergies; none. Social history; positive for heavy alcohol abuse. Family history; patient is single. He is the only child. 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 Review systems; unable to be obtained. General exam; young male, tachypneic and tachycardic unresponsive. Constitutional: disoriented, poor po Eyes: No discharge, No redness ENT: bleeding Respiratory: No cough, No shortness of breath Cardiovascular: No chest pain, No edema, No palpitations Gastrointestinal: blood, constipation, nausea, pain Genitourinary: No bleeding, No dysuria Musculoskeletal: No back pain, No bone/joint pain Skin: bruising, other Neurologic: confusion, dizziness Endocrine: No polydypsia, No polyuria Psychological: confusion Immunologic: No immunodeficiency Past Surgical History Past Surgical Hx: no surgical history Social History Alcohol Use: heavy Smoking Status: Current every day smoker Drug Use: none Exam/Review of Systems Vital Signs Vitals Vital Signs Date Time Temp Pulse Resp B/P Pulse Ox O2 Delivery O2 Flow Rate FiO2 01/07/17 08:00 109 01/07/17 06:00 42 130/83 98 Room Air 01/07/17 04:00 98.8 01/06/17 08:00 2.0 Intake and Output 01/06/17 01/06/17 01/07/17 15:00 23:00 07:00 Intake Total 635 ml 975 ml 700 ml Output Total 405 ml 1190 ml 1375 ml Balance 230 ml -215 ml -675 ml Exam HEENT exam; patient is severely icteric. Blood seen in the pharynx. Patient has fair dentition. Pupils are small bilaterally. No neck masses. No thyromegaly. Chest exam; diminished breath sounds bilaterally S1-S2 audible tachycardic regular rhythm. Abdomen exam; soft, protuberant. Bowel sounds are absent. Extremity exam; no edema. 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 Results Result Diagram: 01/07/1751601/07/17516 Results 24 hrs Laboratory Tests Test 01/06/17 17:51 01/06/17 21:18 01/06/17 22:27 01/07/17 01:25 Bedside Glucose 84 123 126 Sodium Level 141 Potassium Level 4.5 Chloride Level 120 H Carbon Dioxide Level 11 L Anion Gap 15 Blood Urea Nitrogen 19 Creatinine 1.79 H Glucose Level 334 #H Calcium Level 6.0 L Test 01/07/17 04:47 01/07/17 05:17 01/07/17 09:02 01/07/17 10:33 Bedside Glucose 171 118 White Blood Count 22.8 H Red Blood Count 2.40 L Hemoglobin 8.9 L Hematocrit 26.4 L Mean Corpuscular Volume 110.0 H Mean Corpuscular Hemoglobin 37.1 H Mean Corpuscular Hemoglobin Concent 33.7 Red Cell Distribution Width 20.5 H Platelet Count 106 L Mean Platelet Volume 11.0 H Neutrophils % 78.6 H Lymphocytes % 6.3 L Monocytes % 10.1 Eosinophils % 0.2 Basophils % 0.2 Nucleated Red Blood Cells % 0.3 H Neutrophils # 17.9 H Lymphocytes # 1.4 Monocytes # 2.3 H Eosinophils # 0.1 Basophils # 0.1 Nucleated Red Blood Cells # 0.1 H Sodium Level 146 H Potassium Level 3.6 Chloride Level 125 H Carbon Dioxide Level 14 L Anion Gap 11 Blood Urea Nitrogen 21 H Creatinine 1.85 H Glucose Level 167 # Calcium Level 6.1 L Phosphorus Level 2.0 L Magnesium Level 2.1 Total Bilirubin 21.0 H Direct Bilirubin 18.90 *H Indirect Bilirubin 2.1 H Aspartate Amino Transf (AST/SGOT) 118 H Alanine Aminotransferase (ALT/SGPT) 34 Alkaline Phosphatase 349 H Total Protein 6.5 Albumin 2.2 L Globulin 4.30 H Albumin/Globulin Ratio 0.51 Amylase Level 260 H Lipase 914 H Blood Gas Specimen Source Blood arterial Arterial Blood Date Drawn 01/07/2017 10:45:20 AM Arterial Blood pH (Temp corrected) 7.373 Arterial Blood pCO2 (Temp correct) 24.8 L Arterial Blood pO2 (Temp corrected) 44.4 *L Arterial Blood HCO3 14.1 L Arterial Blood Base Excess -9.7 L Arterial Blood Oxygen Saturation 75.9 L Prateek Test ACCEPTAB Arterial Blood Gas Puncture Site Right Radial Arterial Blood Carboxyhemoglobin 0.8 Arterial Blood Methemoglobin 0.2 Blood Gas A-a O2 Differential 75.6 H Oxyhemoglobin Percent 75.1 L Total Hemoglobin 10.3 L Blood Gas Temperature 37.0 Blood Gas Modality ROOM AIR FiO2 21.0 Blood Gas Critical Value Read Back Sandra MANCUSO RN Blood Gas Notified Whom DT Blood Gas Notified Time 01/07/2017 10:55:06 AM Test 01/07/17 13:53 Bedside Glucose 130 Medications Medications Current Medications Pantoprazole (Protonix Iv) 40 mg BID@,18 IV Last administered on 01/07/17 06 :19; Admin Dose 40 MG; Start 01/03/17 at 06:00 Ondansetron HCl (Zofran Inj) 4 mg Q6H PRN IV NAUSEA AND/OR VOMITING Last administered on 01/03/17 14:52; Admin Dose 4 MG; Start 01/02/17 at 23:00 Docusate Sodium (Colace) 100 mg Q12H PRN PO CONSTIPATION; Start 01/02/17 at 23: 00 Rifaximin (Xifaxan) 550 mg BID PO Last administered on 01/07/17 10:46; Admin Dose 550 MG; Start 01/04/17 at 11:00 Metoclopramide HCl (Reglan) 10 mg Q6 IV Last administered on 01/07/17 13:21; Admin Dose 10 MG; Start 01/05/17 at 00:00 Lactulose (Enulose) 20 gm Q4 PO Last administered on 01/06/17 08:25; Admin Dose 20 GM; Start 01/05/17 at 09:00; Status Future Hold Lorazepam (Ativan) 1 mg Q2 PRN IV ANXIETY Last administered on 01/07/17 13:20 ; Admin Dose 1 MG; Start 01/05/17 at 13:00 IV Flush (NS 10 ml) 10 ml PRN PRN IV IV PROTOCOL; Start 01/05/17 at 18:30 Lactulose (Lactulose Enema) 100 ml Q6 TX Last administered on 01/07/17 13:24; Admin Dose 100 ML; Start 01/06/17 at 10:00 Chlordiazepoxide 25 mg 25 mg BID PO Last administered on 01/07/17 10:45; Admin Dose 25 MG; Start 01/06/17 at 21:00 Meropenem/Sodium Chloride 50 ml @ 100 mls/hr Q8 IVPB Last administered on 01/07 06:19; Admin Dose 100 MLS/HR; Start 01/06/17 at 12:30 Metronidazole 100 ml @ 100 mls/hr Q8 IVPB Last administered on 01/07/17 06:19 ; Admin Dose 100 MLS/HR; Start 01/06/17 at 14:00 Potassium Chloride/Dextrose/ Sod Cl 1,000 ml @ 60 mls/hr [id number] IV Last administered on 01/07/17 13:23; Admin Dose 60 MLS/HR; Start 01/06/17 at 14:00 Fat Emulsion Intravenous (Liposyn Ii 20%) 500 ml @ 21 mls/hr [id number] IV ; Start 01/06/17 at 15:00; Status Future Hold Diagnostic Test (Pha) 1 ea 1 ea Q4 XX Last administered on 01/07/17 05:03; Admin Dose 1 EA; Start 01/06/17 at 17:00 Total Parenteral Nutrition 1,000 ml @ 80 mls/hr [id number] IV ; Start 01/07/17 at 17:00 Total Parenteral Nutrition (Tpn) 1,000 ml @ 40 mls/hr Q24H IV Last administered on 01/06/17 17:40; Admin Dose 40 MLS/HR; Start 01/06/17 at 17:00; Stop 01/07/17 at 17:59 Diazepam 10 mg 10 mg Q2H PRN IV ANXIETY; Start 01/07/17 at 12:00 Propofol (Diprivan) 100 ml @ 2.217 mls/ hr Q12H IV ; Start 01/07/17 at 14:00 NERI MCKEON Jan 07, 2017 14:00
--- NOTE | 2017-01-07 14:09 | EN ---
Date/Time of Note Date/Time of Note DATE: 01/07/17 TIME: 14:08 Event Note Medicine Medicine Event Note Oral intubation. Patient with impending respiratory failure due to advanced cirrhosis of liver. Patient was given etomidate 20 mg IV push followed by succinylcholine 80 mg IV push. Patient intubated with 7.5 endotracheal tube without difficulty. Tube traversed through the vocal cords under direct visualization. CXR has been ordered. NERI MCKEON Jan 07, 2017 14:09
[2017-01-07] MEDS: PROPOFOL 100 ML IV SCH ×2 (14:12→22:56)
--- NOTE | 2017-01-07 15:07 | RADRPT ---
PROCEDURE: XR Chest 1 View. CLINICAL INDICATION: Shortness of breath. Status post intubation. TECHNIQUE: AP view of the chest was obtained. COMPARISON: January 07, 2017 at 11:50 a.m. FINDINGS: The cardiomediastinal silhouette is within normal limits. Endotracheal tube has its tip approximatel y 1.9 cm above the simeon. Nasogastric tube has its distal end in the expected location of the stoma ch and appears stable. Left-sided PICC line is unchanged. Central pulmonary vascular congestion and interstitial prominence in both lungs is stable. Patchy perihilar infiltrates in both lungs are unch anged. Atelectasis versus infiltrate in the right middle lobe is stable. Osseous structures are inta ct. IMPRESSION: Endotracheal tube with its tip approximately 1.9 cm above the simeon. Stable central pulmonary vascular congestion and mild interstitial prominence in both lungs. Stable patchy perihilar infiltrates in both lungs. Stable atelectasis versus infiltrate in the right middle lobe. RPTAT: AA .Samy Cody MD, MD Date Time Electronically viewed and signed by .Samy Cody MD, on 01/07/2017 15:07 .P/
[2017-01-07 15:43] LABS: AADO2 Arterial 350.4 mmHg (7.0-24.0); Allen Test ACCEPTAB; Arterial Base Excess -11.6 mmol/L (-3.0-3); Arterial COHb 0.7 % (0.0-3.0); Arterial Fraction of Oxyhgb 79.8 % (93.0-99.0); Arterial HCO3 13.1 mmol/L (22.0-26.0); Arterial MetHb 0.3 % (0.0-1.5); Arterial Total Hemglobin 9.8 g/dl (12.0-18.0); MODE VENT - AC
[2017-01-07 15:58] LABS: CALCIUM 6.4 mg/dl (8.4-10.2); CREATININE 2.05 mg/dl (0.61-1.24); POTASSIUM 3.6 mmol/L (3.5-5.1)
[2017-01-07] MEDS: TPN 1,000 ML IV SCH (17:15)
[2017-01-07] MEDS: SODIUM BICARBONATE (IV ADD) 50 MEQ in DEXTROSE 5% 950 ML IV SCH (18:47)
[2017-01-07] MEDS: DIAZEPAM 5 MG/ML SYG IV PRN (20:34)
--- NOTE | 2017-01-07 21:03 | RADRPT ---
PROCEDURE: XR Chest. CLINICAL INDICATION: Shortness of breath. TECHNIQUE: AP Portable chest. COMPARISON: 02/05/2015 FINDINGS: The cardiomediastinal silhouette is normal. Patchy perihilar airspace opacities are noted throughou t the right greater than left chest. The osseous structures are unremarkable. An endotracheal tube tip is in the mid to distal trachea, 2.3 cm above the level of the simeon. A na sogastric tube tip is in the stomach. A left arm PICC line is seen with tip in the cavoatrial juncti on. IMPRESSION: Patchy perihilar airspace opacities likely due to pulmonary edema. RPTAT: HIKT .Gutierrez Gar MD, MD Date Time Electronically viewed and signed by .Gutierrez Gar MD, MD on 01/07/2017 21:02 .T/
[2017-01-07 22:46] LABS: AADO2 Arterial 411.9 mmHg (7.0-24.0); Allen Test ACCEPTAB; Arterial Base Excess -8.5 mmol/L (-3.0-3); Arterial COHb 0.3 % (0.0-3.0); Arterial Fraction of Oxyhgb 98.9 % (93.0-99.0); Arterial HCO3 14.2 mmol/L (22.0-26.0); Arterial MetHb 0.5 % (0.0-1.5); Arterial Total Hemglobin 8.9 g/dl (12.0-18.0); MODE VENT - AC
[2017-01-08] VITALS (52 sets, daily range): BP systolic 94–121; BP diastolic 39–56; PULSE 93–115; RESP 26–52
[2017-01-08] MEDS: LACTULOSE ENEMA 1,000 ML BTL PR SCH ×2 (00:58→07:08)
[2017-01-08] MEDS: METOCLOPRAMIDE 10 MG INJ IV SCH ×4 (00:58→18:02)
[2017-01-08] MEDS: DIAZEPAM 5 MG/ML SYG IV PRN (01:43)
[2017-01-08] MEDS: PROPOFOL 100 ML IV SCH ×2 (01:44→17:52)
[2017-01-08 05:47] LABS: HAAIG REFLEX REFLEX FILED
[2017-01-08] MEDS: metroNIDAZOLE 500 MG/NS (PMX) 100 ML IVPB SCH ×3 (05:47→22:05)
[2017-01-08] MEDS: PANTOPRAZOLE 40 MG INJ IV SCH (05:47)
[2017-01-08] MEDS: MEROPENEM 500MG/50 ML (PMX) 50 ML IVPB SCH ×3 (05:47→22:06)
[2017-01-08] MEDS: ACCU-CHEK XX SCH ×5 (05:48→21:00)
[2017-01-08] MEDS: SODIUM BICARBONATE (IV ADD) 50 MEQ in DEXTROSE 5% 950 ML IV SCH (05:48)
[2017-01-08 05:51] LABS: ABNORMAL IP MESSAGE 1; BASOPHILS % 0.1 % (0.0-2.0); EOSINOPHILS # 0.1 10^3/ul (0.0-0.5); EOSINOPHILS % 0.6 % (0.0-7.0); HEMATOCRIT 23.3 % (42.0-52.0); HEMOGLOBIN 7.3 g/dl (14.0-18.0); LYMPHOCYTES % 11.2 % (15.0-51.0); MEAN CORPUSCULAR HEMOGLOBIN 36.7 pg (29.0-33.0); MEAN CORPUSCULAR HGB CONC 31.3 g/dl (32.0-37.0); MEAN CORPUSCULAR VOLUME 117.1 fl (82.0-101.0); MEAN PLATELET VOLUME 11.7 fl (7.4-10.4); MONOCYTE # 2.2 10^3/ul (0.3-0.9); MONOCYTES % 11.8 % (0.0-11.0); NEUTROPHIL # 13.4 10^3/ul (1.6-7.5); NEUTROPHILS % 73.3 % (39.0-77.0); NUCLEATED RED BLOOD CELLS # 0.1 10^3/ul (0.0-0.0); NUCLEATED RED BLOOD CELLS% 0.6 /100WBC (0.0-0.0); PLATELET COUNT 79 10^3/UL (140-415); POSITIVE DIFF @See below; RED BLOOD COUNT 1.99 10^6/ul (4.70-6.10); RED CELL DISTRIBUTION WIDTH 22.1 % (11.5-14.5); WHITE BLOOD COUNT 18.2 10^3/ul (4.8-10.8)
[2017-01-08 06:11] LABS: INR 3.08; PROTIME 32.2 Sec (12.2-14.2); PT RATIO 2.5
[2017-01-08] MEDS: TPN 1,000 ML IV SCH ×2 (07:08→18:02)
[2017-01-08 07:48] LABS: ALANINE AMINOTRANSFERASE 27 IU/L (13-69); ALKALINE PHOSPHATASE 359 IU/L (42-121); ANION GAP 8 (8-16); ASPARTATE AMINO TRANSFERASE 114 IU/L (15-46); BLOOD UREA NITROGEN 32 mg/dl (7-20); CALCIUM 6.5 mg/dl (8.4-10.2); CARBON DIOXIDE 15 mmol/L (21-31); CHLORIDE 121 mmol/L (97-110); CREATININE 2.98 mg/dl (0.61-1.24); GLUCOSE 115 mg/dl (70-220); SODIUM 140 mmol/L (135-144)
[2017-01-08 07:49] LABS: ALBUMIN 1.8 g/dl (3.3-4.9); ALBUMIN/GLOBULIN RATIO 0.47; AMYLASE 156 U/L (11-123); BILIRUBIN,INDIRECT 1.2 mg/dl (0-1.1); BILIRUBIN,TOTAL 17.4 mg/dl (0.2-1.3); TOTAL PROTEIN 5.6 g/dl (6.1-8.1)
[2017-01-08 07:49] LABS: MAGNESIUM 2.1 mg/dl (1.7-2.5); PHOSPHORUS 2.7 mg/dl (2.5-4.9)
[2017-01-08 08:38] LABS: HEPATITIS B CORE ANTIBODY NEGATIVE (NEGATIVE)
[2017-01-08] MEDS: CHLORDIAZEPOXIDE 25 MG CAP PO SCH ×2 (09:15→22:05)
[2017-01-08] MEDS: RIFAXIMIN 550 MG TAB PO SCH ×2 (09:15→22:05)
--- NOTE | 2017-01-08 10:36 | PN ---
Date/Time of Note Date/Time of Note DATE: 01/08/17 TIME: 10:08 Assessment/Plan Lines/Catheters IV Catheter Type (from [facility]): PICC Line Minaya in Place (from [facility]): Yes Assessment/Plan Chief Complaint/Hosp Course 1. Paralytic ileus 2nd acute processes, KUB: partial obstruction. Now with Rectal tube output; abdomen less distended -Bowel regimen -Monitor 2. Acute on chronic alcoholic pancreatitis with peripancreatic fluid: amylase/ lipase improving; abdomen non distention, nontenderness -Supportive measures -Judicious fluid management -Trend labs -Encourage cessation 3. Acute GI bleed from gastritis and esophageal varices secondary to alcoholism ; dried blood noted in mouth, no output from ng tube -Transfuse as needed -Supportive measures: ppi -Correct coagulopathy and platelet dysfunction 4. Anemia secondary to above -As above 5. Leukocytosis, multifactorial with SIRS and steroid therapy. Rule out infectious etiology: improving -Close monitoring -Antibiotics for bacterial translocation 6. Alcoholic hepatitis with hepatosplenomegaly -Medical and GI optimization 7. Chronic alcohol abuse -Encourage cessation 8. Subcapsular liver collection possible hematoma versus other -Monitor 9. Electrolyte imbalance -Correct with replacements and fluid management 10. Alcohol withdrawal with tachypnea, tachycardia and obvious tremors -supportive -?ciwa protocol 11. NICOLAS: decreased output -judicious fluids -avoid nephrotoxic meds 12. Pulm edema: ?/ #11 -gentle diuresis -as above Thank you. Patient seen and examined in collaboration with Dr. Bob Tristan. Problems: Subjective 24 Hr Interval Summary Intubated and sedated. Tachycardia improved. Tremors and diaphoresis improved. Continues to have rectal tube output with flatus and bm. Decreased urine output. NG tube without output. Copious secretions. Exam/Review of Systems Vital Signs Vitals Vital Signs Date Time Temp Pulse Resp B/P Pulse Ox O2 Delivery O2 Flow Rate FiO2 01/08/17 09:06 35 01/08/17 08:50 101 31 100 01/08/17 05:10 99.1 01/08/17 04:30 97/45 01/08/17 04:00 Mechanical Ventilator 01/07/17 13:00 6.0 Intake and Output 01/07/17 01/07/17 01/08/17 15:00 23:00 07:00 Intake Total 1002 ml 1499.542 ml 1617.89 ml Output Total 860 ml 865 ml 475 ml Balance 142 ml 634.542 ml 1142.89 ml Exam Free Text/Dictation Constitutional: No distress, No oriented, diaphoretic, tremulous, Psych: confusion: responds to minimal stimuli No nl mood/affect Head: atraumatic, normocephalic, No hematomas, No lacerations Eyes: EOMI, PERRL, icteric ENMT: nl external ears & nose, nl lips & teeth, dried blood oral, ng tube without drainage No mucosa pink and moist Neck: non-tender, supple, No jvd Respiratory: crackles, intubated No congested cough, No labored breathing Cardiovascular: No edema, No regular rate and rhythm: ST Gastrointestinal: soft, non-tender, +rectal tube output No distended, No rebound or guarding Musculoskeletal: nl extremities to inspection, No joint tenderness Extremities: normal pulses, No calf tenderness, No cyanosis Neurological: No nl mental status, No nl speech, No nl strength Skin: rash or lesions (Jaundice), No diaphoresis, No nl turgor : minaya with luis output (decreased) Lymph: nl lymph nodes, nontender Results Result Diagram: 01/08/17 0440 01/08/17 0714 ELIO GIBBONS NP Jan 08, 2017 10:35
--- NOTE | 2017-01-08 10:45 | CONS ---
Date/Time of Note Date/Time of Note DATE: 01/08/17 TIME: 10:41 Assessment/Plan Assessment/Plan Additional Assessment/Plan Ventilator setting; AC of 16, tidal volume 500, PEEP of 5, 50% FiO2. Patient is currently on propofol at 15 mics per kilogram per minute, TPN as well as sodium bicarbonate drip. Assessment and recommendations; 1. Patient admitted with hepatic enthesopathy leading to respiratory failure. 2. Severe pancreatitis with interval improvement. 3. Bilateral pneumonia, likely aspiration. 4. Alcoholic cirrhosis. 5. Gastritis. 6. Anemia and thrombocytopenia. 7. Metabolic acidosis. 8. Hepatorenal syndrome. Continue current supportive care. Decrease FiO2 to 30%. Increased sodium bicarbonate administration. Monitor renal function. Transfuse blood products as needed. Prognosis is guarded. 35 minutes of critical care time was spent evaluating the patient. Consultation Date/Type/Reason Admit Date/Time Jan 02, 2017 at 19:30 Initial Consult Date 01/07/17 Type of Consultation: Pulmonary/critical care Referring Provider: BRAEDEN LUNSFORD MD 24 HR Interval Summary Free Text/Dictation Patient's condition remains critical. Had to be intubated yesterday for impending respiratory failure. Patient however has remained hemodynamically stable. General exam; young male, orally intubated, sedated, currently in no distress. Exam/Review of Systems Vital Signs Vitals Vital Signs Date Time Temp Pulse Resp B/P Pulse Ox O2 Delivery O2 Flow Rate FiO2 01/08/17 09:06 35 01/08/17 08:50 101 31 100 01/08/17 05:10 99.1 01/08/17 04:30 97/45 01/08/17 04:00 Mechanical Ventilator 01/07/17 13:00 6.0 Intake and Output 01/07/17 01/07/17 01/08/17 15:00 23:00 07:00 Intake Total 1002 ml 1499.542 ml 1617.89 ml Output Total 860 ml 865 ml 475 ml Balance 142 ml 634.542 ml 1142.89 ml Exam HEENT exam; supple neck, no JVD. No lymphadenopathy. Midline trachea. No thyromegaly. Orally intubated. No oral bleed seen. Patient is strongly icteric. Pupils are small bilaterally. Patient has a multiple carious teeth. Chest exam; diminished but clear breath sounds. S1-S2 audible, no murmurs. Regular rhythm. Abdomen exam; soft, no organomegaly. Bowel sounds are absent. Abdomen is protuberant. Extremity exam; no edema. DOG OR ANIMAL SITTER exam; patient is sedated. Results Result Diagram: 01/08/17 0440 01/08/17 0714 Results 24 hrs Laboratory Tests Test 01/07/17 13:53 01/07/17 14:45 01/07/17 15:00 01/07/17 17:24 Bedside Glucose 130 134 Sodium Level 146 H Potassium Level 3.6 Chloride Level 123 H Carbon Dioxide Level 14 L Anion Gap 13 Blood Urea Nitrogen 23 H Creatinine 2.05 H Glucose Level 143 Calcium Level 6.4 L Blood Gas Specimen Source Blood arterial Arterial Blood Date Drawn 01/07/2017 3:25:35 PM Arterial Blood pH (Temp corrected) 7.319 L Arterial Blood pCO2 (Temp correct) 26.1 L Arterial Blood pO2 (Temp corrected) 48.7 *L Arterial Blood HCO3 13.1 L Arterial Blood Base Excess -11.6 L Arterial Blood Oxygen Saturation 80.6 L Prateek Test ACCEPTAB Arterial Blood Gas Puncture Site Right Radial Arterial Blood Carboxyhemoglobin 0.7 Arterial Blood Methemoglobin 0.3 Blood Gas A-a O2 Differential 350.4 H Oxyhemoglobin Percent 79.8 L Total Hemoglobin 9.8 L Blood Gas Temperature 37.0 Blood Gas Respiration Rate 16.0 Blood Gas Actual Respiration Rate 30 Blood Gas Modality VENT - AC FiO2 60.0 Blood Gas Tidal Volume 500.0 Blood Gas Low PEEP Setting 5.0 Blood Gas Critical Value Read Back Sandra MANCUSO RN Blood Gas Notified Whom DT Blood Gas Notified Time 01/07/2017 3:41:15 PM Test 01/07/17 20:00 01/07/17 21:17 01/07/17 21:37 01/07/17 22:30 Potassium Level 6.3 #*H 3.5 # Bedside Glucose 142 Blood Gas Specimen Source Blood arterial Arterial Blood Date Drawn 01/07/2017 10:38:35 PM Arterial Blood pH (Temp corrected) 7.443 Arterial Blood pCO2 (Temp correct) 21.2 L Arterial Blood pO2 (Temp corrected) 279.9 H Arterial Blood HCO3 14.2 L Arterial Blood Base Excess -8.5 L Arterial Blood Oxygen Saturation 99.7 H Prateek Test ACCEPTAB Arterial Blood Gas Puncture Site Right Radial Arterial Blood Carboxyhemoglobin 0.3 Arterial Blood Methemoglobin 0.5 Blood Gas A-a O2 Differential 411.9 H Oxyhemoglobin Percent 98.9 Total Hemoglobin 8.9 L Blood Gas Temperature 37.0 Blood Gas Respiration Rate 16.0 Blood Gas Actual Respiration Rate 39 Blood Gas Modality VENT - AC FiO2 100.0 Blood Gas Tidal Volume 500.0 Blood Gas Low PEEP Setting 5.0 Blood Gas Critical Value Read Back Nima HYDE R.N Blood Gas Notified Whom MM Blood Gas Notified Time 01/07/2017 10:46:25 PM Test 01/08/17 01:16 01/08/17 04:40 01/08/17 05:15 01/08/17 07:14 Bedside Glucose 132 130 White Blood Count 18.2 #H Red Blood Count 1.99 L Hemoglobin 7.3 L Hematocrit 23.3 L Mean Corpuscular Volume 117.1 H Mean Corpuscular Hemoglobin 36.7 H Mean Corpuscular Hemoglobin Concent 31.3 L Red Cell Distribution Width 22.1 H Platelet Count 79 #L Mean Platelet Volume 11.7 H Neutrophils % 73.3 Lymphocytes % 11.2 L Monocytes % 11.8 H Eosinophils % 0.6 Basophils % 0.1 Nucleated Red Blood Cells % 0.6 H Neutrophils # 13.4 H Lymphocytes # 2.0 Monocytes # 2.2 H Eosinophils # 0.1 Basophils # 0.0 Nucleated Red Blood Cells # 0.1 H Prothrombin Time 32.2 #H Prothrombin Time Ratio 2.5 INR International Normalized Ratio 3.08 Sodium Level 140 Potassium Level 4.0 Chloride Level 121 H Carbon Dioxide Level 15 L Anion Gap 8 Blood Urea Nitrogen 32 H Creatinine 2.98 H Glucose Level 115 Calcium Level 6.5 L Total Bilirubin 17.4 H Direct Bilirubin 16.20 *H Indirect Bilirubin 1.2 H Aspartate Amino Transf (AST/SGOT) 114 H Alanine Aminotransferase (ALT/SGPT) 27 Alkaline Phosphatase 359 H Total Protein 5.6 L Albumin 1.8 L Globulin 3.80 H Albumin/Globulin Ratio 0.47 Amylase Level 156 H Lipase 741 H Hepatitis B Surface Antigen NEGATIVE Hepatitis B Core Total Antibody NEGATIVE Hepatitis C Antibody NEGATIVE Test 01/08/17 07:15 01/08/17 09:21 Phosphorus Level 2.7 Magnesium Level 2.1 Ammonia 77 H Bedside Glucose 137 Medications Medications Current Medications Pantoprazole (Protonix Iv) 40 mg BID@06,18 IV Last administered on 01/08/17 05 :47; Admin Dose 40 MG; Start 01/03/17 at 06:00 Ondansetron HCl (Zofran Inj) 4 mg Q6H PRN IV NAUSEA AND/OR VOMITING Last administered on 01/03/17 14:52; Admin Dose 4 MG; Start 01/02/17 at 23:00 Docusate Sodium (Colace) 100 mg Q12H PRN PO CONSTIPATION; Start 01/02/17 at 23: 00 Rifaximin (Xifaxan) 550 mg BID PO Last administered on 01/08/17 09:15; Admin Dose 550 MG; Start 01/04/17 at 11:00 Metoclopramide HCl (Reglan) 10 mg Q6 IV Last administered on 01/08/17 07:07; Admin Dose 10 MG; Start 01/05/17 at 00:00 Lactulose (Enulose) 20 gm Q4 PO Last administered on 01/06/17 08:25; Admin Dose 20 GM; Start 01/05/17 at 09:00; Status Future Hold Lorazepam (Ativan) 1 mg Q2 PRN IV ANXIETY Last administered on 01/07/17 22:53 ; Admin Dose 1 MG; Start 01/05/17 at 13:00 IV Flush (NS 10 ml) 10 ml PRN PRN IV IV PROTOCOL; Start 01/05/17 at 18:30 Lactulose (Lactulose Enema) 100 ml Q6 HI Last administered on 01/08/17 07:08; Admin Dose 100 ML; Start 01/06/17 at 10:00 Chlordiazepoxide 25 mg 25 mg BID PO Last administered on 01/08/17 09:15; Admin Dose 25 MG; Start 01/06/17 at 21:00 Meropenem/Sodium Chloride 50 ml @ 100 mls/hr Q8 IVPB Last administered on 01/08 05:47; Admin Dose 100 MLS/HR; Start 01/06/17 at 12:30 Metronidazole 100 ml @ 100 mls/hr Q8 IVPB Last administered on 01/08/17 05:47 ; Admin Dose 100 MLS/HR; Start 01/06/17 at 14:00 Fat Emulsion Intravenous (Liposyn Ii 20%) 500 ml @ 21 mls/hr [id number] IV ; Start 01/06/17 at 15:00; Status Future Hold Diagnostic Test (Pha) 1 ea 1 ea Q4 XX Last administered on 01/08/17 05:48; Admin Dose 1 EA; Start 01/06/17 at 17:00 Total Parenteral Nutrition (Tpn) 1,000 ml @ 80 mls/hr [id number] IV Last administered on 01/08/17 07:08; Admin Dose 80 MLS/HR; Start 01/07/17 at 17:00 Diazepam 10 mg 10 mg Q2H PRN IV ANXIETY Last administered on 01/08/17 01:43; Admin Dose 10 MG; Start 01/07/17 at 12:00 Propofol 100 ml @ 2.217 mls/ hr Q12H IV Last administered on 01/08/17 01:44; Admin Dose 22.17 MLS/HR; Start 01/07/17 at 14:00 Sodium Bicarbonate/ Dextrose (Na Bicarb/D5W) 1,000 ml @ 100 mls/hr Q10H IV Last administered on 01/08/17 05:48; Admin Dose 100 MLS/HR; Start 01/07/17 at 18:00 NERI MCKEON Jan 08, 2017 10:45
[2017-01-08] MEDS ORDERED: SOD CHLORIDE 0.9% 250 ML IV* ONE (11:16)
--- NOTE | 2017-01-08 11:29 | PN ---
Date/Time of Note Date/Time of Note DATE: 01/08/17 TIME: 11:26 Assessment/Plan VTE Prophylaxis VTE Prophylaxis Intervention: SCD's Lines/Catheters IV Catheter Type (from Nrsg): PICC Line Central line still needed: Yes Urinary Cath still in place: Yes Reason Cath still needed: urinary retention Assessment/Plan Chief Complaint/Hosp Course 1. Upper GI bleed s/P EGD with gastritis and gastroparesis on Protonix and Reglan 2. ETOH withdrawal 3. ETOH pancreatitis with Lipase 7690> trending down to 1999 4. Acute on chronic liver failure likely Etoh abuse with elevated INR, Hyperbilirubenemia, low platelets, 5. Hepatic encephalopathy with elevated Ammonia levels still 134 6. HX Depression 7. Respiratory failure 8. NICOLSA likely prerenal vs HRS, Cr peaked to 2.12, 1.8 today 9. Gap Acidosis, ABG with severe hypoxia, doubt true arterial sample 10. Leukocytosis could be pancreatitis vs aspiration on cefepime, pt not on prednisolone 11. Hx of Bradycardia 12.. Paralytic ileus. KUB: partial obstruction. pt is on PPN 13. Severe Anemia Problems: Assessment/Plan 1. PRBC transfusion, 1 unit 2. Continue PPN 3. IV fluids with 2 amps of bicarb Subjective 24 Hr Interval Summary Subjective hx not possible: pt non-verbal, pt critical status Exam/Review of Systems Vital Signs Vitals Vital Signs Date Time Temp Pulse Resp B/P Pulse Ox O2 Delivery O2 Flow Rate FiO2 01/08/17 11:00 100 31 100 35 01/08/17 05:10 99.1 01/08/17 04:30 97/45 01/08/17 04:00 Mechanical Ventilator 01/07/17 13:00 6.0 Intake and Output 01/07/17 01/07/17 01/08/17 15:00 23:00 07:00 Intake Total 1002 ml 1499.542 ml 1617.89 ml Output Total 860 ml 865 ml 475 ml Balance 142 ml 634.542 ml 1142.89 ml Exam sedated with propofol Head: normocephalic Eyes: icteric ENMT: nl external ears & nose Respiratory: diminished breath sounds Cardiovascular: regular rate and rhythm Skin: ecchymosis Results Result Diagram: 01/08/17 0440 01/08/17 0714 Results 24 hrs Laboratory Tests Test 01/07/17 13:53 9/23/17 14:45 01/07/17 15:00 01/07/17 17:24 Bedside Glucose 130 134 Sodium Level 146 H Potassium Level 3.6 Chloride Level 123 H Carbon Dioxide Level 14 L Anion Gap 13 Blood Urea Nitrogen 23 H Creatinine 2.05 H Glucose Level 143 Calcium Level 6.4 L Blood Gas Specimen Source Blood arterial Arterial Blood Date Drawn 01/07/2017 3:25:35 PM Arterial Blood pH (Temp corrected) 7.319 L Arterial Blood pCO2 (Temp correct) 26.1 L Arterial Blood pO2 (Temp corrected) 48.7 *L Arterial Blood HCO3 13.1 L Arterial Blood Base Excess -11.6 L Arterial Blood Oxygen Saturation 80.6 L Prateek Test ACCEPTAB Arterial Blood Gas Puncture Site Right Radial Arterial Blood Carboxyhemoglobin 0.7 Arterial Blood Methemoglobin 0.3 Blood Gas A-a O2 Differential 350.4 H Oxyhemoglobin Percent 79.8 L Total Hemoglobin 9.8 L Blood Gas Temperature 37.0 Blood Gas Respiration Rate 16.0 Blood Gas Actual Respiration Rate 30 Blood Gas Modality VENT - AC FiO2 60.0 Blood Gas Tidal Volume 500.0 Blood Gas Low PEEP Setting 5.0 Blood Gas Critical Value Read Back I JAMEE RN Blood Gas Notified Whom DT Blood Gas Notified Time 01/07/2017 3:41:15 PM Test 01/07/17 20:00 01/07/17 21:17 01/07/17 21:37 01/07/17 22:30 Potassium Level 6.3 #*H 3.5 # Bedside Glucose 142 Blood Gas Specimen Source Blood arterial Arterial Blood Date Drawn 01/07/2017 10:38:35 PM Arterial Blood pH (Temp corrected) 7.443 Arterial Blood pCO2 (Temp correct) 21.2 L Arterial Blood pO2 (Temp corrected) 279.9 H Arterial Blood HCO3 14.2 L Arterial Blood Base Excess -8.5 L Arterial Blood Oxygen Saturation 99.7 H Prateek Test ACCEPTAB Arterial Blood Gas Puncture Site Right Radial Arterial Blood Carboxyhemoglobin 0.3 Arterial Blood Methemoglobin 0.5 Blood Gas A-a O2 Differential 411.9 H Oxyhemoglobin Percent 98.9 Total Hemoglobin 8.9 L Blood Gas Temperature 37.0 Blood Gas Respiration Rate 16.0 Blood Gas Actual Respiration Rate 39 Blood Gas Modality VENT - AC FiO2 100.0 Blood Gas Tidal Volume 500.0 Blood Gas Low PEEP Setting 5.0 Blood Gas Critical Value Read Back Nima HYDE R.N Blood Gas Notified Whom MM Blood Gas Notified Time 01/07/2017 10:46:25 PM Test 01/08/17 01:16 01/08/17 04:40 01/08/17 05:15 01/08/17 07:14 Bedside Glucose 132 130 White Blood Count 18.2 #H Red Blood Count 1.99 L Hemoglobin 7.3 L Hematocrit 23.3 L Mean Corpuscular Volume 117.1 H Mean Corpuscular Hemoglobin 36.7 H Mean Corpuscular Hemoglobin Concent 31.3 L Red Cell Distribution Width 22.1 H Platelet Count 79 #L Mean Platelet Volume 11.7 H Neutrophils % 73.3 Lymphocytes % 11.2 L Monocytes % 11.8 H Eosinophils % 0.6 Basophils % 0.1 Nucleated Red Blood Cells % 0.6 H Neutrophils # 13.4 H Lymphocytes # 2.0 Monocytes # 2.2 H Eosinophils # 0.1 Basophils # 0.0 Nucleated Red Blood Cells # 0.1 H Prothrombin Time 32.2 #H Prothrombin Time Ratio 2.5 INR International Normalized Ratio 3.08 Sodium Level 140 Potassium Level 4.0 Chloride Level 121 H Carbon Dioxide Level 15 L Anion Gap 8 Blood Urea Nitrogen 32 H Creatinine 2.98 H Glucose Level 115 Calcium Level 6.5 L Total Bilirubin 17.4 H Direct Bilirubin 16.20 *H Indirect Bilirubin 1.2 H Aspartate Amino Transf (AST/SGOT) 114 H Alanine Aminotransferase (ALT/SGPT) 27 Alkaline Phosphatase 359 H Total Protein 5.6 L Albumin 1.8 L Globulin 3.80 H Albumin/Globulin Ratio 0.47 Amylase Level 156 H Lipase 741 H Hepatitis B Surface Antigen NEGATIVE Hepatitis B Core Total Antibody NEGATIVE Hepatitis C Antibody NEGATIVE Test 01/08/17 07:15 01/08/17 09:21 Phosphorus Level 2.7 Magnesium Level 2.1 Ammonia 77 H Bedside Glucose 137 Medications Medications Current Medications Pantoprazole (Protonix Iv) 40 mg BID@,18 IV Last administered on 01/08/17 05 :47; Admin Dose 40 MG; Start 01/03/17 at 06:00 Ondansetron HCl (Zofran Inj) 4 mg Q6H PRN IV NAUSEA AND/OR VOMITING Last administered on 01/03/17 14:52; Admin Dose 4 MG; Start 01/02/17 at 23:00 Docusate Sodium (Colace) 100 mg Q12H PRN PO CONSTIPATION; Start 01/02/17 at 23: 00 Rifaximin (Xifaxan) 550 mg BID PO Last administered on 01/08/17 09:15; Admin Dose 550 MG; Start 01/04/17 at 11:00 Metoclopramide HCl (Reglan) 10 mg Q6 IV Last administered on 01/08/17 07:07; Admin Dose 10 MG; Start 01/05/17 at 00:00 Lactulose (Enulose) 20 gm Q4 PO Last administered on 01/06/17 08:25; Admin Dose 20 GM; Start 01/05/17 at 09:00; Status Future Hold Lorazepam (Ativan) 1 mg Q2 PRN IV ANXIETY Last administered on 01/07/17 22:53 ; Admin Dose 1 MG; Start 01/05/17 at 13:00 IV Flush (NS 10 ml) 10 ml PRN PRN IV IV PROTOCOL; Start 01/05/17 at 18:30 Lactulose (Lactulose Enema) 100 ml Q6 MO Last administered on 01/08/17 07:08; Admin Dose 100 ML; Start 01/06/17 at 10:00 Chlordiazepoxide 25 mg 25 mg BID PO Last administered on 01/08/17 09:15; Admin Dose 25 MG; Start 01/06/17 at 21:00 Meropenem/Sodium Chloride 50 ml @ 100 mls/hr Q8 IVPB Last administered on 01/08 05:47; Admin Dose 100 MLS/HR; Start 01/06/17 at 12:30 Metronidazole 100 ml @ 100 mls/hr Q8 IVPB Last administered on 01/08/17 05:47 ; Admin Dose 100 MLS/HR; Start 01/06/17 at 14:00 Fat Emulsion Intravenous (Liposyn Ii 20%) 500 ml @ 21 mls/hr [id number] IV ; Start 01/06/17 at 15:00; Status Future Hold Diagnostic Test (Pha) 1 ea 1 ea Q4 XX Last administered on 01/08/17 05:48; Admin Dose 1 EA; Start 01/06/17 at 17:00 Total Parenteral Nutrition (Tpn) 1,000 ml @ 80 mls/hr [id number] IV Last administered on 01/08/17 07:08; Admin Dose 80 MLS/HR; Start 01/07/17 at 17:00 Diazepam 10 mg 10 mg Q2H PRN IV ANXIETY Last administered on 01/08/17 01:43; Admin Dose 10 MG; Start 01/07/17 at 12:00 Propofol 100 ml @ 2.217 mls/ hr Q12H IV Last administered on 01/08/17 01:44; Admin Dose 22.17 MLS/HR; Start 01/07/17 at 14:00 Sodium Bicarbonate/ Dextrose (Na Bicarb/D5W) 1,050 ml @ 100 mls/hr [id number] IV ; Start 01/08/17 at 10:43 KIM HOLLIS Jan 08, 2017 11:29
[2017-01-08] MEDS ORDERED: FUROSEMIDE 20 MG INJ IV ONE (14:00)
--- NOTE | 2017-01-08 14:18 | PN ---
DATE: 01/08/2017 SUBJECTIVE DATA: The patient was intubated. He is on Diprivan drip. Lying comfortably in bed. He is getting TPN with bicarb. OBJECTIVE DATA: VITAL SIGNS: Temperature T-max 100.6 this morning and current 100, pulse 98, respirations 30, blood pressure 108/42, and saturation 100 on 35 FiO2. LABORATORY AND DIAGNOSTIC DATA: WBC 18.2, H and H 7.3 and 23.3, platelets 79, neutrophils 73.3, BUN 32, and creatinine 2.98. MICROBIOLOGY: Blood and urine cultures remain negative. DIAGNOSTICS: Chest x-ray from yesterday with patchy perihilar opacities likely due to pulmonary edema. X-ray of the abdomen yesterday revealed dilated small-bowel loops increased compared to previous study with air also seen in a nondilated colon finding suggestive of small-bowel obstruction. INDWELLINGS: Endotracheal tube, NG tube, [place] catheter, and PICC line placed on January 05. ANTIMICROBIAL: The patient is on Flagyl and meropenem. PHYSICAL EXAMINATION: GENERAL: This is a well-developed, well-nourished, middle-aged man, who is in no distress. HEENT: Head atraumatic, normocephalic. Sclerae icteric. Buccal mucosa dry. NECK: Supple. CHEST: Rise symmetrical. Breath sounds diminished at the bases. HEART: S1, S2. Tachycardic, regular. ABDOMEN: Distended. Bowel sounds hypoactive. EXTREMITIES: With trace edema. SKIN: Positive for jaundice. ASSESSMENT: 1. Severe sepsis, multifactorial, with multisystem organ failure. 2. Acute pancreatitis, lipase is trending down. 3. Paralytic ileus, rule out small bowel obstruction. 4. Alcoholic liver disease. 5. Acute renal failure, likely hepatorenal syndrome. 6. Acute respiratory failure, status post intubated, possible pneumonia. 7. Acute encephalopathy. PLAN: Continue abx, vent per pulmonary, GI/surgical/pulmonary rec-s. Prognosis is guarded. Dictated By: Thom Loyd NP /derek/giacomo /Document#: [id number]
--- NOTE | 2017-01-08 14:19 | CONS ---
Date/Time of Note Date/Time of Note DATE: 01/08/17 TIME: 14:16 Assessment/Plan Assessment/Plan Additional Assessment/Plan IMPRESSION: 1. Delirium tremens. The patient is still agitated and confused. 2. Hepatic encephalopathy. 3. Alcoholic liver disease. 4. Pancreatitis. Amylase has come down to 260. Lipase is down 5. Leukocytosis. 6. Renal insufficiency. Though the urine output is good. 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 Pedal edema and ascites Plan Bilirubin is improving it has dropped down from 21-17 now Leukocytosis also has improved from 22,002 18,000 Kidney function is deteriorating now it is 2.98 patient has developed volume overload manifested in the form of pedal edema and also ascites We will give him low-dose of Lasix 20 mg plan patient will be started on NG tube feeding nephro at 20 cc/h Will recheck CBC before giving packed cell RBC Discussed with the mother and risks of the family member [id number]. Consultation Date/Type/Reason Admit Date/Time Jan 02, 2017 at 19:30 Type of Consultation: Pulmonary/critical care Referring Provider: BRAEDEN LUNSFORD MD 24 HR Interval Summary Subjective hx not possible: pt non-verbal, pt critical Exam/Review of Systems Vital Signs Vitals Vital Signs Date Time Temp Pulse Resp B/P Pulse Ox O2 Delivery O2 Flow Rate FiO2 01/08/17 12:00 101 01/08/17 11:00 31 100 35 01/08/17 11:00 111/43 Mechanical Ventilator 01/08/17 08:00 100.0 01/07/17 13:00 6.0 Intake and Output 01/07/17 01/07/17 01/08/17 15:00 23:00 07:00 Intake Total 1002 ml 1499.542 ml 1617.89 ml Output Total 860 ml 865 ml 475 ml Balance 142 ml 634.542 ml 1142.89 ml Exam Respiratory: other (Patient is intubated and is on vent) Cardiovascular: nl pulses, regular rate and rhythm Gastrointestinal: ascites, distended Extremities: edema Neurological: unresponsive Results Result Diagram: 01/08/17 0440 01/08/17 0714 Results 24 hrs Laboratory Tests Test 01/07/17 14:45 01/07/17 15:00 01/07/17 17:24 01/07/17 20:00 Sodium Level 146 H Potassium Level 3.6 6.3 #*H Chloride Level 123 H Carbon Dioxide Level 14 L Anion Gap 13 Blood Urea Nitrogen 23 H Creatinine 2.05 H Glucose Level 143 Calcium Level 6.4 L Blood Gas Specimen Source Blood arterial Arterial Blood Date Drawn 01/07/2017 3:25:35 PM Arterial Blood pH (Temp corrected) 7.319 L Arterial Blood pCO2 (Temp correct) 26.1 L Arterial Blood pO2 (Temp corrected) 48.7 *L Arterial Blood HCO3 13.1 L Arterial Blood Base Excess -11.6 L Arterial Blood Oxygen Saturation 80.6 L Prateek Test ACCEPTAB Arterial Blood Gas Puncture Site Right Radial Arterial Blood Carboxyhemoglobin 0.7 Arterial Blood Methemoglobin 0.3 Blood Gas A-a O2 Differential 350.4 H Oxyhemoglobin Percent 79.8 L Total Hemoglobin 9.8 L Blood Gas Temperature 37.0 Blood Gas Respiration Rate 16.0 Blood Gas Actual Respiration Rate 30 Blood Gas Modality VENT - AC FiO2 60.0 Blood Gas Tidal Volume 500.0 Blood Gas Low PEEP Setting 5.0 Blood Gas Critical Value Read Back Sandra MANCUSO RN Blood Gas Notified Whom DT Blood Gas Notified Time 01/07/2017 3:41:15 PM Bedside Glucose 134 Test 01/07/17 21:17 01/07/17 21:37 01/07/17 22:30 01/08/17 01:16 Potassium Level 3.5 # Bedside Glucose 142 132 Blood Gas Specimen Source Blood arterial Arterial Blood Date Drawn 01/07/2017 10:38:35 PM Arterial Blood pH (Temp corrected) 7.443 Arterial Blood pCO2 (Temp correct) 21.2 L Arterial Blood pO2 (Temp corrected) 279.9 H Arterial Blood HCO3 14.2 L Arterial Blood Base Excess -8.5 L Arterial Blood Oxygen Saturation 99.7 H Prateek Test ACCEPTAB Arterial Blood Gas Puncture Site Right Radial Arterial Blood Carboxyhemoglobin 0.3 Arterial Blood Methemoglobin 0.5 Blood Gas A-a O2 Differential 411.9 H Oxyhemoglobin Percent 98.9 Total Hemoglobin 8.9 L Blood Gas Temperature 37.0 Blood Gas Respiration Rate 16.0 Blood Gas Actual Respiration Rate 39 Blood Gas Modality VENT - AC FiO2 100.0 Blood Gas Tidal Volume 500.0 Blood Gas Low PEEP Setting 5.0 Blood Gas Critical Value Read Back Nima HYDE R.N Blood Gas Notified Whom MM Blood Gas Notified Time 01/07/2017 10:46:25 PM Test 01/08/17 04:40 01/08/17 05:15 01/08/17 07:14 01/08/17 07:15 White Blood Count 18.2 #H Red Blood Count 1.99 L Hemoglobin 7.3 L Hematocrit 23.3 L Mean Corpuscular Volume 117.1 H Mean Corpuscular Hemoglobin 36.7 H Mean Corpuscular Hemoglobin Concent 31.3 L Red Cell Distribution Width 22.1 H Platelet Count 79 #L Mean Platelet Volume 11.7 H Neutrophils % 73.3 Lymphocytes % 11.2 L Monocytes % 11.8 H Eosinophils % 0.6 Basophils % 0.1 Nucleated Red Blood Cells % 0.6 H Neutrophils # 13.4 H Lymphocytes # 2.0 Monocytes # 2.2 H Eosinophils # 0.1 Basophils # 0.0 Nucleated Red Blood Cells # 0.1 H Prothrombin Time 32.2 #H Prothrombin Time Ratio 2.5 INR International Normalized Ratio 3.08 Bedside Glucose 130 Sodium Level 140 Potassium Level 4.0 Chloride Level 121 H Carbon Dioxide Level 15 L Anion Gap 8 Blood Urea Nitrogen 32 H Creatinine 2.98 H Glucose Level 115 Calcium Level 6.5 L Total Bilirubin 17.4 H Direct Bilirubin 16.20 *H Indirect Bilirubin 1.2 H Aspartate Amino Transf (AST/SGOT) 114 H Alanine Aminotransferase (ALT/SGPT) 27 Alkaline Phosphatase 359 H Total Protein 5.6 L Albumin 1.8 L Globulin 3.80 H Albumin/Globulin Ratio 0.47 Amylase Level 156 H Lipase 741 H Hepatitis B Surface Antigen NEGATIVE Hepatitis B Core Total Antibody NEGATIVE Hepatitis C Antibody NEGATIVE Phosphorus Level 2.7 Magnesium Level 2.1 Ammonia 77 H Test 01/08/17 09:21 Bedside Glucose 137 Medications Medications Current Medications Ondansetron HCl (Zofran Inj) 4 mg Q6H PRN IV NAUSEA AND/OR VOMITING Last administered on 01/03/17 14:52; Admin Dose 4 MG; Start 01/02/17 at 23:00 Docusate Sodium (Colace) 100 mg Q12H PRN PO CONSTIPATION; Start 01/02/17 at 23: 00 Rifaximin (Xifaxan) 550 mg BID PO Last administered on 01/08/17 09:15; Admin Dose 550 MG; Start 01/04/17 at 11:00 Metoclopramide HCl (Reglan) 10 mg Q6 IV Last administered on 01/08/17 07:07; Admin Dose 10 MG; Start 01/05/17 at 00:00 Lactulose (Enulose) 20 gm Q4 PO Last administered on 01/06/17 08:25; Admin Dose 20 GM; Start 01/05/17 at 09:00; Stop 01/08/17 at 16:00; Status Future Hold Lorazepam (Ativan) 1 mg Q2 PRN IV ANXIETY Last administered on 01/07/17 22:53 ; Admin Dose 1 MG; Start 01/05/17 at 13:00 IV Flush (NS 10 ml) 10 ml PRN PRN IV IV PROTOCOL; Start 01/05/17 at 18:30 Chlordiazepoxide 25 mg 25 mg BID PO Last administered on 01/08/17 09:15; Admin Dose 25 MG; Start 01/06/17 at 21:00 Meropenem/Sodium Chloride 50 ml @ 100 mls/hr Q8 IVPB Last administered on 01/08 05:47; Admin Dose 100 MLS/HR; Start 01/06/17 at 12:30 Metronidazole 100 ml @ 100 mls/hr Q8 IVPB Last administered on 01/08/17 05:47 ; Admin Dose 100 MLS/HR; Start 01/06/17 at 14:00 Fat Emulsion Intravenous (Liposyn Ii 20%) 500 ml @ 21 mls/hr [id number] IV ; Start 01/06/17 at 15:00; Status Future Hold Diagnostic Test (Pha) 1 ea 1 ea Q4 XX Last administered on 01/08/17 05:48; Admin Dose 1 EA; Start 01/06/17 at 17:00 Total Parenteral Nutrition (Tpn) 1,000 ml @ 80 mls/hr [id number] IV Last administered on 01/08/17 07:08; Admin Dose 80 MLS/HR; Start 01/07/17 at 17:00 Diazepam 10 mg 10 mg Q2H PRN IV ANXIETY Last administered on 01/08/17 01:43; Admin Dose 10 MG; Start 01/07/17 at 12:00 Propofol 100 ml @ 2.217 mls/ hr Q12H IV Last administered on 9/24/17at 01:44; Admin Dose 22.17 MLS/HR; Start 01/07/17 at 14:00 Sodium Bicarbonate/ Dextrose (Na Bicarb/D5W) 1,050 ml @ 100 mls/hr [id number] IV ; Start 01/08/17 at 10:43 Pantoprazole (Protonix Iv) 40 mg DAILY IV ; Start 01/09/17 at 09:00 Lactulose (Enulose) 20 gm Q6 NGT ; Start 01/08/17 at 18:00 LAURA CORDERO MD Jan 08, 2017 14:19
[2017-01-08] MEDS: SODIUM BICARBONATE IV SCH ×2 (17:38→22:12)
[2017-01-08] MEDS: DEXTROSE 5% IV SCH ×2 (17:38→22:12)
[2017-01-08] MEDS: LACTULOSE 30ML CUP NGT SCH (18:02)
[2017-01-09] VITALS (47 sets, daily range): BP systolic 103–122; BP diastolic 46–94; PULSE 96–106; RESP 25–38
[2017-01-09] MEDS: LACTULOSE 30ML CUP NGT SCH ×4 (00:51→17:24)
[2017-01-09] MEDS: METOCLOPRAMIDE 10 MG INJ IV SCH ×4 (00:51→17:09)
[2017-01-09] MEDS: ACCU-CHEK XX SCH ×6 (01:48→21:42)
[2017-01-09] MEDS: PROPOFOL 100 ML IV SCH ×3 (01:55→17:09)
[2017-01-09 05:27] LABS: ABNORMAL IP MESSAGE 1; BASOPHIL # 0.1 10^3/ul (0.0-0.1); BASOPHILS % 0.3 % (0.0-2.0); EOSINOPHILS # 0.2 10^3/ul (0.0-0.5); HEMATOCRIT 26.7 % (42.0-52.0); HEMOGLOBIN 8.7 g/dl (14.0-18.0); LYMPHOCYTES # 1.9 10^3/ul (0.8-2.9); LYMPHOCYTES % 9.6 % (15.0-51.0); MEAN CORPUSCULAR HEMOGLOBIN 34.8 pg (29.0-33.0); MEAN CORPUSCULAR HGB CONC 32.6 g/dl (32.0-37.0); MEAN CORPUSCULAR VOLUME 106.8 fl (82.0-101.0); MEAN PLATELET VOLUME 11.9 fl (7.4-10.4); MONOCYTE # 2.1 10^3/ul (0.3-0.9); MONOCYTES % 10.3 % (0.0-11.0); NEUTROPHILS % 74.8 % (39.0-77.0); NUCLEATED RED BLOOD CELLS # 0.1 10^3/ul (0.0-0.0); NUCLEATED RED BLOOD CELLS% 0.5 /100WBC (0.0-0.0); PLATELET COUNT 76 10^3/UL (140-415); POSITIVE DIFF @See below; RED CELL DISTRIBUTION WIDTH 24.6 % (11.5-14.5)
[2017-01-09] MEDS: MEROPENEM 500MG/50 ML (PMX) 50 ML IVPB SCH ×2 (05:51→21:39)
[2017-01-09] MEDS: metroNIDAZOLE 500 MG/NS (PMX) 100 ML IVPB SCH (06:02)
[2017-01-09 06:12] LABS: ALBUMIN 1.9 g/dl (3.3-4.9); ALBUMIN/GLOBULIN RATIO 0.46; BILIRUBIN,INDIRECT 1.2 mg/dl (0-1.1); BILIRUBIN,TOTAL 16.3 mg/dl (0.2-1.3); CALCIUM 7.1 mg/dl (8.4-10.2); CREATININE 3.9 mg/dl (0.61-1.24); POTASSIUM 4.4 mmol/L (3.5-5.1)
[2017-01-09 06:14] LABS: BILIRUBIN,DIRECT 15.1 mg/dl (0.00-0.20)
[2017-01-09] MEDS: TPN 1,000 ML IV SCH ×2 (06:35→18:41)
[2017-01-09] MEDS: SODIUM BICARBONATE IV SCH (06:39)
[2017-01-09] MEDS: DEXTROSE 5% IV SCH (06:39)
[2017-01-09] MEDS: RIFAXIMIN 550 MG TAB PO SCH ×2 (08:40→21:40)
[2017-01-09] MEDS: PANTOPRAZOLE 40 MG INJ IV SCH (08:40)
[2017-01-09] MEDS: CHLORDIAZEPOXIDE 25 MG CAP PO SCH ×2 (08:40→21:40)
[2017-01-09] MEDS ORDERED: FUROSEMIDE 20 MG INJ IV SCH (09:00)
--- NOTE | 2017-01-09 09:41 | PN ---
Date/Time of Note Date/Time of Note DATE: 01/09/17 TIME: : Assessment/Plan VTE Prophylaxis VTE Prophylaxis Intervention: contraindicated VTE Contraindication Reason: bleeding Lines/Catheters IV Catheter Type (from Nrsg): PICC Line Central line still needed: Yes Urinary Cath still in place: Yes Reason Cath still needed: urinary retention Assessment/Plan Chief Complaint/Hosp Course 36 y/o with # Upper GI bleed s/P EGD with gastritis and gastroparesis on Protonix and Reglan # Partial SBO qi # NICOLAS likely Oliguric ATN vs HRS, Cr peaking ATI # ETOH withdrawal # ETOH pancreatitis with Lipase 7690> trending down to 2000> pending # Acute on chronic liver failure likely Etoh abuse with elevated INR, Hyperbilirubenemia, low platelets, # Hepatic encephalopathy with elevated Ammonia levels # Depression # Hypokalemia # Non Gap Acidosis due to renal failure/ diarrhoea # Leukocytosis could be pancreatitis vs aspiration on cefepime Recs - Small bowel follow thru per Surgery - NPO - Hold TF, unable to tolerate - c/w TPN - Informed Surgery - Chest Xray - Concentrate all fluids - Repeat U/A - Flush minaya Q shift - Vent management per Pulmonary - Replete K - c/w ICU care Problems: Subjective 24 Hr Interval Summary Free Text/Dictation Abdomen is distended Intake was 5 L and UOP 870 ml Started on Lasix 20 mg iv daily on fi02 30% Rectal output 350 ml last 24 hrs Exam/Review of Systems Vital Signs Vitals Vital Signs Date Time Temp Pulse Resp B/P Pulse Ox O2 Delivery O2 Flow Rate FiO2 01/09/17 09:00 100 32 105/46 99 Mechanical Ventilator 01/09/17 08:00 98.6 01/09/17 05:06 30 01/07/17 13:00 6.0 Intake and Output 01/08/17 01/08/17 01/09/17 15:00 23:00 07:00 Intake Total 1560.944 ml 1868.604 ml 1688 ml Output Total 185 ml 375 ml 310 ml Balance 1375.944 ml 1493.604 ml 1378 ml Exam Gen:Intubated on propofol HEENT: blood tinged teeth, Scleral icterus Neck:supple CVS: Regular rate and rthym Lungs: Coarse breath sounds b/l Abdomen: distended ++, faint bowel sounds Ext: + edema Results Result Diagram: 01/09/17 0400 01/09/17 0400 Results 24 hrs Laboratory Tests Test 01/08/17 09:21 01/08/17 14:45 01/08/17 17:40 01/08/17 22:11 Bedside Glucose 137 145 149 147 Test 01/09/17 01:58 01/09/17 04:00 01/09/17 05:23 01/09/17 06:49 Bedside Glucose 148 157 White Blood Count 20.0 H Red Blood Count 2.50 #L Hemoglobin 8.7 L Hematocrit 26.7 L Mean Corpuscular Volume 106.8 H Mean Corpuscular Hemoglobin 34.8 H Mean Corpuscular Hemoglobin Concent 32.6 Red Cell Distribution Width 24.6 H Platelet Count 76 L Mean Platelet Volume 11.9 H Neutrophils % 74.8 Lymphocytes % 9.6 L Monocytes % 10.3 Eosinophils % 1.0 Basophils % 0.3 Nucleated Red Blood Cells % 0.5 H Neutrophils # 15.0 H Lymphocytes # 1.9 Monocytes # 2.1 H Eosinophils # 0.2 Basophils # 0.1 Nucleated Red Blood Cells # 0.1 H Sodium Level 134 L Potassium Level 4.4 Chloride Level 110 # Carbon Dioxide Level 17 L Anion Gap 11 Blood Urea Nitrogen 46 #H Creatinine 3.90 H Glucose Level 244 #H Calcium Level 7.1 L Total Bilirubin 16.3 H Direct Bilirubin 15.10 H Indirect Bilirubin 1.2 H Aspartate Amino Transf (AST/SGOT) 95 H Alanine Aminotransferase (ALT/SGPT) 26 Alkaline Phosphatase 319 H Total Protein 6.0 L Albumin 1.9 L Globulin 4.10 H Albumin/Globulin Ratio 0.46 Lab Scanned Report BLOOD TRANSFUSION Medications Medications Current Medications Ondansetron HCl (Zofran Inj) 4 mg Q6H PRN IV NAUSEA AND/OR VOMITING Last administered on 01/03/17 14:52; Admin Dose 4 MG; Start 01/02/17 at 23:00 Docusate Sodium (Colace) 100 mg Q12H PRN PO CONSTIPATION; Start 01/02/17 at 23: 00 Rifaximin (Xifaxan) 550 mg BID PO Last administered on 01/09/17 08:40; Admin Dose 550 MG; Start 01/04/17 at 11:00 Metoclopramide HCl (Reglan) 10 mg Q6 IV Last administered on 01/09/17 05:51; Admin Dose 10 MG; Start 01/05/17 at 00:00 Lorazepam (Ativan) 1 mg Q2 PRN IV ANXIETY Last administered on 01/07/17 22:53 ; Admin Dose 1 MG; Start 01/05/17 at 13:00 IV Flush (NS 10 ml) 10 ml PRN PRN IV IV PROTOCOL; Start 01/05/17 at 18:30 Chlordiazepoxide 25 mg 25 mg BID PO Last administered on 01/09/17 08:40; Admin Dose 25 MG; Start 01/06/17 at 21:00 Meropenem/Sodium Chloride 50 ml @ 100 mls/hr Q8 IVPB Last administered on 01/09 05:51; Admin Dose 100 MLS/HR; Start 01/06/17 at 12:30 Metronidazole 100 ml @ 100 mls/hr Q8 IVPB Last administered on 01/09/17 06:02 ; Admin Dose 100 MLS/HR; Start 01/06/17 at 14:00 Fat Emulsion Intravenous (Liposyn Ii 20%) 500 ml @ 21 mls/hr [id number] IV ; Start 01/06/17 at 15:00; Status Future Hold Diagnostic Test (Pha) 1 ea 1 ea Q4 XX Last administered on 01/09/17 05:24; Admin Dose 1 EA; Start 01/06/17 at 17:00 Total Parenteral Nutrition (Tpn) 1,000 ml @ 80 mls/hr [id number] IV Last administered on 01/09/17 06:35; Admin Dose 80 MLS/HR; Start 01/07/17 at 17:00 Diazepam 10 mg 10 mg Q2H PRN IV ANXIETY Last administered on 01/08/17 01:43; Admin Dose 10 MG; Start 01/07/17 at 12:00 Propofol 100 ml @ 2.217 mls/ hr Q12H IV Last administered on 01/09/17 01:55; Admin Dose 10.642 MLS/HR; Start 01/07/17 at 14:00 Sodium Bicarbonate/ Dextrose (Na Bicarb/D5W) 1,050 ml @ 100 mls/hr [id number] IV Last administered on 01/09/17 06:39; Admin Dose 100 MLS/HR; Start 01/08/17 at 10:43 Pantoprazole (Protonix Iv) 40 mg DAILY IV Last administered on 01/09/17 08:40 ; Admin Dose 40 MG; Start 01/09/17 at 09:00 Lactulose (Enulose) 20 gm Q6 NGT Last administered on 01/09/17 05:51; Admin Dose 20 GM; Start 01/08/17 at 18:00 Furosemide (Lasix) 20 mg DAILY IV ; Start 01/09/17 at 09:00 BRAEDEN LUNSFORD MD Jan 09, 2017 09:28
--- NOTE | 2017-01-09 09:48 | PN ---
Date/Time of Note Date/Time of Note DATE: 01/09/17 TIME: 09:42 Assessment/Plan Lines/Catheters IV Catheter Type (from [facility]): PICC Line Minaya in Place (from [facility]): Yes Assessment/Plan Chief Complaint/Hosp Course 1. Paralytic ileus 2nd acute processes. Decreased rectal output and abdomen distended -sbft -Monitor 2. Acute on chronic alcoholic pancreatitis with peripancreatic fluid: amylase/ lipase improving; abdomen non distention, nontenderness -Supportive measures -Judicious fluid management -Trend labs -Encourage cessation 3. Acute GI bleed from gastritis and esophageal varices secondary to alcoholism ; dried blood noted in mouth, no output from ng tube -Transfuse as needed -Supportive measures: ppi -Correct coagulopathy and platelet dysfunction 4. Anemia secondary to above -As above 5. Leukocytosis, multifactorial with SIRS and steroid therapy, ? infectious -Close monitoring -Antibiotics for bacterial translocation 6. Alcoholic hepatitis with hepatosplenomegaly -Medical and GI optimization 7. Chronic alcohol abuse -Encourage cessation 8. Subcapsular liver collection possible hematoma versus other -Monitor 9. Electrolyte imbalance -Correct with replacements and fluid management 10. Alcohol withdrawal with tachypnea, tachycardia and obvious tremors -supportive -?ciwa protocol 11. NICOLAS: decreased output -judicious fluids -avoid nephrotoxic meds 12. Pulm edema: ?/ #11 -gentle diuresis -as above Thank you, Problems: Subjective 24 Hr Interval Summary Intubated and sedated. Tachycardia improved. Tremors and diaphoresis improved. Continues to have rectal tube output with decreasing output. Decreased urine output. Didnt tolerated feeds. Worsening cr and wbc Exam/Review of Systems Vital Signs Vitals Vital Signs Date Time Temp Pulse Resp B/P Pulse Ox O2 Delivery O2 Flow Rate FiO2 01/09/17 09:00 100 32 105/46 99 Mechanical Ventilator 01/09/17 08:00 30 01/09/17 08:00 98.6 01/07/17 13:00 6.0 Intake and Output 01/08/17 01/08/17 01/09/17 15:00 23:00 07:00 Intake Total 1560.944 ml 1868.604 ml 1688 ml Output Total 185 ml 375 ml 310 ml Balance 1375.944 ml 1493.604 ml 1378 ml Exam Free Text/Dictation Constitutional: No distress, No oriented. Sedated and intubated. Psych: Sedated and intubated. No nl mood/affect Head: atraumatic, normocephalic, No hematomas, No lacerations Eyes: EOMI, PERRL, icteric ENMT: nl external ears & nose, nl lips & teeth, dried blood oral, ng tube without drainage. No mucosa pink and moist. ETT Neck: non-tender, supple, No jvd Respiratory: crackles, intubated. No congested cough, No labored breathing Cardiovascular: No edema, No regular rate and rhythm: ST Gastrointestinal: soft, non-tender, distended, +rectal tube output. No rebound or guarding Musculoskeletal: nl extremities to inspection, No joint tenderness Extremities: normal pulses, No calf tenderness, No cyanosis Neurological: No nl mental status, No nl speech, No nl strength Skin: rash or lesions (Jaundice), No diaphoresis, No nl turgor : minaya with luis output (decreased) Lymph: nl lymph nodes, nontender Results Result Diagram: 01/09/1739901/09/17399 PETER TAMEZ MD Jan 09, 2017 09:48
--- NOTE | 2017-01-09 10:23 | RADRPT ---
PROCEDURE: XR Chest AP portable CLINICAL INDICATION: Pulmonary edema TECHNIQUE: An AP portable radiograph of the chest was submitted. COMPARISON: 01/07/2017 FINDINGS: Support Hardware: The endotracheal tube and the left upper extremity PICC catheter is stable in posi tioning while the NG tube is in further advanced into the stomach. Cardiovascular: The cardiovascular silhouette appears unremarkable. Lung Erickson: The perihilar infiltrates have resolved. Subsegmental atelectasis is again seen at the right lung base and discoid atelectasis is seen at the left lung base, unchanged. Pleural Spaces: No pneumothorax or pleural effusion is identified. Osseous Structures: The osseous structures appear intact. Soft Tissues: The soft tissues appear unremarkable. IMPRESSION: 1. The NG tube is been advanced farther into the stomach while the endotracheal tube and left upper extremity PICC catheter stable in positioning. 2. Resolution of the perihilar infiltrates. 3. Subsegmental atelectasis seen at the right lung base, unchanged with discoid atelectasis seen at the left lung base, unchanged. 4. The cardiovascular silhouette appears unremarkable. Physician Makenna Date Time Electronically viewed and signed by Physician Makenna on 01/09/2017 10:23 /
--- NOTE | 2017-01-09 10:25 | RADRPT ---
PROCEDURE: XR Abdomen CLINICAL INDICATION: Upper GI bleed TECHNIQUE: An AP supine radiograph of the abdomen was submitted. COMPARISON: 01/07/2017 FINDINGS: The NG tube is been advanced farther into the stomach. The [place] catheter remains in place. There is less organization of segments of slightly air distended small bowel most compatible with il eus. No organomegaly or discrete mass is identified. No pathological calcification is identified. The osseous elements appear unremarkable. Infiltrate or discoid atelectasis is seen at the right lung base. IMPRESSION: 1. The NG tube is been advanced farther into the stomach. 2. Improved small bowel gas pattern no most compatible with an ileus localized to the left abdomen. 3. Discoid atelectasis or infiltrate noted at the right lung base. Physician Makenna Date Time Electronically viewed and signed by Physician Makenna on 01/09/2017 10:25 /
[2017-01-09] MEDS ORDERED: IOHEXOL 300MG/ML 30 ML BTL ONE (10:38)
[2017-01-09] MEDS ORDERED: IOHEXOL 300MG/ML 150 ML BTL ONE (10:39)
--- NOTE | 2017-01-09 10:50 | CONS ---
Date/Time of Note Date/Time of Note DATE: 01/09/17 TIME: 10:46 Assessment/Plan Assessment/Plan Additional Assessment/Plan Chest x-ray was reviewed from today which is showing bilateral infiltrates. Endotracheal tube is at an adequate level. Ventilator setting; AC of 16, tidal volume 500, PEEP of 5, 30% FiO2. Patient is on propofol at 24 mics per kilogram per minute. Also on TPN. Assessment recommendations; 1. Patient admitted with severe alcoholic cirrhosis with encephalopathy leading to respiratory failure. 2. Acute gastritis status post EGD. With stable hematocrit. 3. Thrombocytopenia and anemia. 4. Worsening renal function due to hepatorenal syndrome. 5. Bilateral pneumonia likely aspiration. 6. Persistent ileus. Continue current supportive care. Continue current antibiotics and TPN. 35 minutes of critical care time was spent evaluating the patient. Consultation Date/Type/Reason Admit Date/Time Jan 02, 2017 at 19:30 Initial Consult Date 01/07/17 Type of Consultation: Pulmonary/critical care Referring Provider: BRAEDEN LUNSFORD MD 24 HR Interval Summary Free Text/Dictation Patient's condition remains critical. Still requiring full ventilator support. Has remained hemodynamically stable. General exam; young male, orally intubated, sedated, currently in no distress. Exam/Review of Systems Vital Signs Vitals Vital Signs Date Time Temp Pulse Resp B/P Pulse Ox O2 Delivery O2 Flow Rate FiO2 01/09/17 09:00 100 32 105/46 99 Mechanical Ventilator 01/09/17 08:00 30 01/09/17 08:00 98.6 01/07/17 13:00 6.0 Intake and Output 01/08/17 01/08/17 01/09/17 15:00 23:00 07:00 Intake Total 1560.944 ml 1868.604 ml 1688 ml Output Total 185 ml 375 ml 310 ml Balance 1375.944 ml 1493.604 ml 1378 ml Exam HEENT exam; supple neck, no JVD. No lymphadenopathy. Midline trachea. No thyromegaly. Orally intubated. No active oral bleeding seen. Patient is strongly icteric. Pupils are small bilaterally. No neck masses. Chest exam; clear to auscultation. S1-S2 audible, no murmurs. Regular rhythm. Abdomen exam; soft, no organomegaly. Bowel sounds are absent. Extremity exam; trace edema. Pulses 1+ bilaterally. IN[employer]MENT [employer] exam; patient is sedated. Results Result Diagram: 01/09/17 0400 01/09/17 0400 Results 24 hrs Laboratory Tests Test 01/08/17 14:45 01/08/17 17:40 01/08/17 22:11 01/09/17 01:58 Bedside Glucose 145 149 147 148 Test 01/09/17 04:00 01/09/17 05:23 01/09/17 06:49 01/09/17 09:40 White Blood Count 20.0 H Red Blood Count 2.50 #L Hemoglobin 8.7 L Hematocrit 26.7 L Mean Corpuscular Volume 106.8 H Mean Corpuscular Hemoglobin 34.8 H Mean Corpuscular Hemoglobin Concent 32.6 Red Cell Distribution Width 24.6 H Platelet Count 76 L Mean Platelet Volume 11.9 H Neutrophils % 74.8 Lymphocytes % 9.6 L Monocytes % 10.3 Eosinophils % 1.0 Basophils % 0.3 Nucleated Red Blood Cells % 0.5 H Neutrophils # 15.0 H Lymphocytes # 1.9 Monocytes # 2.1 H Eosinophils # 0.2 Basophils # 0.1 Nucleated Red Blood Cells # 0.1 H Sodium Level 134 L Potassium Level 4.4 Chloride Level 110 # Carbon Dioxide Level 17 L Anion Gap 11 Blood Urea Nitrogen 46 #H Creatinine 3.90 H Glucose Level 244 #H Calcium Level 7.1 L Total Bilirubin 16.3 H Direct Bilirubin 15.10 H Indirect Bilirubin 1.2 H Aspartate Amino Transf (AST/SGOT) 95 H Alanine Aminotransferase (ALT/SGPT) 26 Alkaline Phosphatase 319 H Total Protein 6.0 L Albumin 1.9 L Globulin 4.10 H Albumin/Globulin Ratio 0.46 Bedside Glucose 157 157 Lab Scanned Report BLOOD TRANSFUSION Medications Medications Current Medications Ondansetron HCl (Zofran Inj) 4 mg Q6H PRN IV NAUSEA AND/OR VOMITING Last administered on 01/03/17 14:52; Admin Dose 4 MG; Start 01/02/17 at 23:00 Docusate Sodium (Colace) 100 mg Q12H PRN PO CONSTIPATION; Start 01/02/17 at 23: 00 Rifaximin (Xifaxan) 550 mg BID PO Last administered on 01/09/17 08:40; Admin Dose 550 MG; Start 01/04/17 at 11:00 Metoclopramide HCl (Reglan) 10 mg Q6 IV Last administered on 01/09/17 05:51; Admin Dose 10 MG; Start 01/05/17 at 00:00 Lorazepam (Ativan) 1 mg Q2 PRN IV ANXIETY Last administered on 01/07/17 22:53 ; Admin Dose 1 MG; Start 01/05/17 at 13:00 IV Flush (NS 10 ml) 10 ml PRN PRN IV IV PROTOCOL; Start 01/05/17 at 18:30 Chlordiazepoxide (Librium) 25 mg BID PO Last administered on 01/09/17 08:40; Admin Dose 25 MG; Start 01/06/17 at 21:00 Diagnostic Test (Pha) (Accu-Chek) 1 ea Q4 XX Last administered on 01/09/17 09: 00; Admin Dose 1 EA; Start 01/06/17 at 17:00 Diazepam 10 mg 10 mg Q2H PRN IV ANXIETY Last administered on 01/08/17 01:43; Admin Dose 10 MG; Start 01/07/17 at 12:00 Sodium Bicarbonate/ Dextrose (Na Bicarb/D5W) 1,050 ml @ 100 mls/hr [id number] IV Last administered on 01/09/17 06:39; Admin Dose 100 MLS/HR; Start 01/08/17 at 10:43 Pantoprazole (Protonix Iv) 40 mg DAILY IV Last administered on 01/09/17 08:40 ; Admin Dose 40 MG; Start 01/09/17 at 09:00 Lactulose 20 gm 20 gm Q6 NGT Last administered on 01/09/17 05:51; Admin Dose 20 GM; Start 01/08/17 at 18:00 Propofol (Diprivan) 100 ml @ 2.217 mls/ hr Q12H IV ; Start 01/09/17 at 10:00 NERI MCKEON Jan 09, 2017 10:50
--- NOTE | 2017-01-09 12:28 | PN ---
DATE: 01/09/2017 SUBJECTIVE DATA: No acute changes. The patient remains intubated on TPN and bicarbonate with increased abdominal distention. OBJECTIVE DATA: VITAL SIGNS: Temperature 98.6, pulse 99, respirations 32, blood pressure 118/50, saturation 100 on 30 FiO2. LABORATORY AND DIAGNOSTIC DATA: WBC 20. H and H 8.7 and 26.7, platelets 76, neutrophils 74.8, BUN 46, creatinine 3.90, glucose 244. Sodium 134. MICROBIOLOGY: Blood cultures repeated remain negative. Blood and urine cultures since admission negative. DIAGNOSTICS: Chest x-ray this morning revealed resolution of perihilar infiltrates. X-ray of the abdomen revealed improved small bowel gas pattern, discoid atelectasis or infiltrate noted at the right lung base. INDWELLING: The patient has endotracheal tube, NG tube, Carolina, PICC line. ANTIMICROBIALS: 1. IV Meropenem. 2. Flagyl. Dictated By: Thom Loyd NP /derek/juan /Document#: [id number]
[2017-01-09] MEDS ORDERED: PHYTONADIONE 10 MG/ML INJ SC STA (13:48)
--- NOTE | 2017-01-09 13:53 | CONS ---
Date/Time of Note Date/Time of Note DATE: 01/09/17 TIME: 13:51 Assessment/Plan Assessment/Plan Additional Assessment/Plan IMPRESSION: 1. Delirium tremens. The patient is now intubated and on propofol 2. Hepatic encephalopathy. 3. Alcoholic liver disease. 4. Pancreatitis. Amylase has come down to 260. Lipase is down 5. Leukocytosis. WBC count is 20 6. Renal insufficiency. Though the urine output is good. 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 Pedal edema and ascites 8. Thrombocytopenia Plan Bilirubin is improving it has dropped down from 21-16.4 Leukocytosis also has improved from 22,002 to 20,000 Kidney function is deteriorating now it is 2.98 patient has developed volume overload manifested in the form of pedal edema and also ascites We will give him low-dose of Lasix 20 mg plan patient will be started on NG tube feeding nephro at 20 cc/h Will recheck CBC before giving packed cell RBC Discussed with the mother and risks of the family member [id number]. Continue all supportive care Will hold off on NG tube feeding May consider prednisone for alcoholic hepatitis Consultation Date/Type/Reason Admit Date/Time Jan 02, 2017 at 19:30 Type of Consultation: Pulmonary/critical care Referring Provider: BRAEDEN LUNSFORD MD 24 HR Interval Summary Subjective hx not possible: pt non-verbal, pt critical Exam/Review of Systems Vital Signs Vitals Vital Signs Date Time Temp Pulse Resp B/P Pulse Ox O2 Delivery O2 Flow Rate FiO2 01/09/17 13:00 101 31 116/53 100 Mechanical Ventilator 01/09/17 12:00 98.8 01/09/17 08:00 30 01/07/17 13:00 6.0 Intake and Output 01/08/17 01/08/17 01/09/17 15:00 23:00 07:00 Intake Total 1560.944 ml 1868.604 ml 1688 ml Output Total 185 ml 375 ml 310 ml Balance 1375.944 ml 1493.604 ml 1378 ml Exam Respiratory: other (Patient is on vent) Cardiovascular: nl pulses, regular rate and rhythm Gastrointestinal: ascites, distended Musculoskeletal: nl extremities to inspection, nl gait and stance Extremities: edema Skin: nl turgor, No rash or lesions Results Result Diagram: 01/09/17 0400 01/09/17 0400 Results 24 hrs Laboratory Tests Test 01/08/17 14:45 01/08/17 17:40 01/08/17 22:11 01/09/17 01:58 Bedside Glucose 145 149 147 148 Test 01/09/17 04:00 01/09/17 05:23 01/09/17 06:49 01/09/17 09:40 White Blood Count 20.0 H Red Blood Count 2.50 #L Hemoglobin 8.7 L Hematocrit 26.7 L Mean Corpuscular Volume 106.8 H Mean Corpuscular Hemoglobin 34.8 H Mean Corpuscular Hemoglobin Concent 32.6 Red Cell Distribution Width 24.6 H Platelet Count 76 L Mean Platelet Volume 11.9 H Neutrophils % 74.8 Lymphocytes % 9.6 L Monocytes % 10.3 Eosinophils % 1.0 Basophils % 0.3 Nucleated Red Blood Cells % 0.5 H Neutrophils # 15.0 H Lymphocytes # 1.9 Monocytes # 2.1 H Eosinophils # 0.2 Basophils # 0.1 Nucleated Red Blood Cells # 0.1 H Sodium Level 134 L Potassium Level 4.4 Chloride Level 110 # Carbon Dioxide Level 17 L Anion Gap 11 Blood Urea Nitrogen 46 #H Creatinine 3.90 H Glucose Level 244 #H Calcium Level 7.1 L Total Bilirubin 16.3 H Direct Bilirubin 15.10 H Indirect Bilirubin 1.2 H Aspartate Amino Transf (AST/SGOT) 95 H Alanine Aminotransferase (ALT/SGPT) 26 Alkaline Phosphatase 319 H Total Protein 6.0 L Albumin 1.9 L Globulin 4.10 H Albumin/Globulin Ratio 0.46 Bedside Glucose 157 157 Lab Scanned Report BLOOD TRANSFUSION Medications Medications Current Medications Ondansetron HCl (Zofran Inj) 4 mg Q6H PRN IV NAUSEA AND/OR VOMITING Last administered on 01/03/17 14:52; Admin Dose 4 MG; Start 01/02/17 at 23:00 Docusate Sodium (Colace) 100 mg Q12H PRN PO CONSTIPATION; Start 01/02/17 at 23: 00 Rifaximin (Xifaxan) 550 mg BID PO Last administered on 01/09/17 08:40; Admin Dose 550 MG; Start 01/04/17 at 11:00 Metoclopramide HCl (Reglan) 10 mg Q6 IV Last administered on 01/09/17 11:48; Admin Dose 10 MG; Start 01/05/17 at 00:00 Lorazepam (Ativan) 1 mg Q2 PRN IV ANXIETY Last administered on 01/07/17 22:53 ; Admin Dose 1 MG; Start 01/05/17 at 13:00 IV Flush (NS 10 ml) 10 ml PRN PRN IV IV PROTOCOL; Start 01/05/17 at 18:30 Chlordiazepoxide (Librium) 25 mg BID PO Last administered on 01/09/17 08:40; Admin Dose 25 MG; Start 01/06/17 at 21:00 Diagnostic Test (Pha) (Accu-Chek) 1 ea Q4 XX Last administered on 01/09/17 13: 22; Admin Dose 1 EA; Start 01/06/17 at 17:00 Diazepam 10 mg 10 mg Q2H PRN IV ANXIETY Last administered on 01/08/17 01:43; Admin Dose 10 MG; Start 01/07/17 at 12:00 Sodium Bicarbonate/ Dextrose (Na Bicarb/D5W) 1,050 ml @ 100 mls/hr [id number] IV Last administered on 01/09/17 06:39; Admin Dose 100 MLS/HR; Start 01/08/17 at 10:43 Pantoprazole (Protonix Iv) 40 mg DAILY IV Last administered on 01/09/17 08:40 ; Admin Dose 40 MG; Start 01/09/17 at 09:00 Lactulose 20 gm 20 gm Q6 NGT Last administered on 01/09/17 11:48; Admin Dose 20 GM; Start 01/08/17 at 18:00 Propofol 100 ml @ 2.217 mls/ hr Q12H IV Last administered on 01/09/17 10:50; Admin Dose 9.755 MLS/HR; Start 01/09/17 at 10:00 Meropenem/Sodium Chloride (Merrem 500mg/50 ml(Pmx)) 50 ml @ 100 mls/hr Q12 IVPB ; Start 01/09/17 at 21:00 LAURA CORDERO MD Jan 09, 2017 13:53
[2017-01-09 15:48] LABS: ADD UMIC YES; UR ASCORBIC ACID NEGATIVE (NEGATIVE); UR BILIRUBIN (Dip) 2+ mg/dL (NEGATIVE); UR BLOOD (Dip) 2+ mg/dL (NEGATIVE); UR CLARITY SLIGHTLY CLOUDY (CLEAR); UR COLOR AMBER (YELLOW); UR GLUCOSE (Dip) NEGATIVE (NEGATIVE); UR KETONES (Dip) NEGATIVE (NEGATIVE); UR LEUKOCYTE ESTERASE (Dip) NEGATIVE Leu/ul (NEGATIVE); UR MUCUS FEW /HPF (NONE SEEN); UR NITRITE (Dip) NEGATIVE (NEGATIVE); UR RBC 11 /HPF (0-5); UR SPECIFIC GRAVITY (Dip) 1.015 (1.003-1.030); UR TOTAL PROTEIN (Dip) 1+ mg/dl (NEGATIVE); UR UROBILINOGEN (Dip) 2+ mg/dL (NEGATIVE)
--- NOTE | 2017-01-09 15:54 | RADRPT ---
PROCEDURE: Ultrasound Retroperitoneum. CLINICAL INDICATION: Renal insufficiency. TECHNIQUE: Lundy scale and color flow sonographic images of the kidneys and retroperitoneum were ob tained. The images were reviewed on a PACS workstation. COMPARISON: No prior studies are available for comparison. FINDINGS: The right kidney measures 12.3 cm. The left kidney measures 12.9 cm. Increased cortical echogenicity is identified in both kidneys. Small echogenic, shadowing stones are identified in the midportion of the left kidney and measure up to approximately 4 mm. No solid masses or hydronephrosis are ident ified. The bladder contains a Carolina catheter and small amount of urine. Small amount of ascites is seen in the abdomen and pelvis. IMPRESSION: Echogenic kidneys, possibly indicating medical renal disease. Nonobstructing left renal stones. Small amount of ascites in the abdomen and pelvis. RPTAT: AA .Samy Cody MD, Date Time Electronically viewed and signed by .Samy Cody MD, MD on 01/09/2017 15:53 .P/
--- NOTE | 2017-01-09 16:12 | PN ---
DATE: 01/09/2017 ADDENDUM: ANTIMICROBIALS: Patient is on Flagyl and meropenem. PHYSICAL EXAMINATION: GENERAL: This is a well-developed, ill-appearing, middle-aged man who is in no distress. HEENT: Head atraumatic, normocephalic. Sclerae anicteric. Buccal mucosa dry. NECK: Supple. Trachea midline. CHEST: Rise symmetrical. Breath sounds diminished at the bases. HEART: S1, S2. ABDOMEN: Distended. Bowel sounds hypoactive. ASSESSMENT: 1. Severe sepsis with multisystem organ failure. 2. Paralytic ileus, questionable obstruction. 3. Acute respiratory failure, possible aspiration pneumonia. 4. Acute renal failure, likely hepatic renal syndrome. 5. Alcoholic liver disease. 6. Acute pancreatitis. 7. Anemia and thrombocytopenia secondary to sepsis as well as liver disease. 8. Subcapsular liver collection possible hematoma versus other. PLAN: We are going to continue him on meropenem, discontinue Flagyl. We will send sputum for culture. Continue management as per primary team and consultants. Prognosis is guarded. Dictated By: Thom Loyd NP /derek/farzana /Document#: [id number]
[2017-01-10] VITALS (57 sets, daily range): BP systolic 99–131; BP diastolic 38–79; PULSE 97–112; RESP 22–34
[2017-01-10] MEDS: LACTULOSE 30ML CUP NGT SCH ×4 (00:47→17:16)
[2017-01-10] MEDS: ACCU-CHEK XX SCH ×6 (00:55→20:36)
[2017-01-10 05:16] LABS: ABNORMAL IP MESSAGE 1; HEMATOCRIT 27.3 % (42.0-52.0); HEMOGLOBIN 8.7 g/dl (14.0-18.0); MEAN CORPUSCULAR HEMOGLOBIN 33.9 pg (29.0-33.0); MEAN CORPUSCULAR HGB CONC 31.9 g/dl (32.0-37.0); MEAN CORPUSCULAR VOLUME 106.2 fl (82.0-101.0); MEAN PLATELET VOLUME 11.7 fl (7.4-10.4); NUCLEATED RED BLOOD CELLS% 0.4 /100WBC (0.0-0.0); PLATELET COUNT 85 10^3/UL (140-415); POSITIVE DIFF @See below; RED BLOOD COUNT 2.57 10^6/ul (4.70-6.10); RED CELL DISTRIBUTION WIDTH 24.6 % (11.5-14.5); WHITE BLOOD COUNT 30.5 10^3/ul (4.8-10.8)
[2017-01-10 05:37] LABS: MAGNESIUM 2.2 mg/dl (1.7-2.5); PHOSPHORUS 5.5 mg/dl (2.5-4.9)
[2017-01-10 05:38] LABS: INR 2.54; PROTIME 27.7 Sec (12.2-14.2); PT RATIO 2.2
[2017-01-10 05:43] LABS: ALBUMIN 2.2 g/dl (3.3-4.9); ALBUMIN/GLOBULIN RATIO 0.52; BILIRUBIN,INDIRECT 1.3 mg/dl (0-1.1); BILIRUBIN,TOTAL 17.6 mg/dl (0.2-1.3); CALCIUM 7.3 mg/dl (8.4-10.2); CREATININE 4.81 mg/dl (0.61-1.24); POTASSIUM 4.1 mmol/L (3.5-5.1); TOTAL PROTEIN 6.4 g/dl (6.1-8.1)
[2017-01-10] MEDS: METOCLOPRAMIDE 10 MG INJ IV SCH ×4 (05:49→17:16)
[2017-01-10 05:59] LABS: BILIRUBIN,DIRECT 16.3 mg/dl (0.00-0.20)
[2017-01-10] MEDS: TPN 1,000 ML IV SCH (06:19)
[2017-01-10] MEDS: PANTOPRAZOLE 40 MG INJ IV SCH (08:33)
[2017-01-10] MEDS: MEROPENEM 500MG/50 ML (PMX) 50 ML IVPB SCH ×2 (08:33→20:29)
[2017-01-10] MEDS: RIFAXIMIN 550 MG TAB PO SCH ×2 (08:33→20:30)
--- NOTE | 2017-01-10 08:39 | RADRPT ---
PROCEDURE: Small bowel follow-through. CLINICAL INDICATION: Abdomen pain. TECHNIQUE: Water-soluble contrast was administered via the nasogastric tube and several spot and o verhead radiographs of the abdomen were obtained. COMPARISON: None. FINDINGS: On the preliminary radiograph, the nasogastric tube tip is present in the stomach. The proximal small bowel is mildly dilated. There is no evidence of obstruction. Contrast reaches the rectum at 6 hours. A delayed image at 8 hours demonstrates most of the contrast within the rectosigmoid and the small b owel to the almost completely emptied of contrast. There is a balloon tipped rectal tube noted. IMPRESSION: 1. Nasogastric tube in the stomach. 2. Balloon tipped rectal tube. 3. Mildly dilated proximal small bowel. 4. No evidence of small bowel obstruction. RPTAT: QQ .Jesse Sanchez MD, Date Time Electronically viewed and signed by .Jesse Sanchez MD, on 01/10/2017 08:38 .R/
[2017-01-10 09:11] LABS: ANISOCYTOSIS 2+ (0-0); GIANT THROMBO% (M) 1 % (0-0); MONOCYTES % (M) 10 % (0-11); PLATELET ESTIMATE DECREASED; POIKILOCYTOSIS 3+ (0-0); POLYCHROMASIA 1+ (0-0)
[2017-01-10] MEDS ORDERED: PHYTONADIONE 10 MG/ML INJ SC STA (09:27)
[2017-01-10] MEDS ORDERED: SOD CHLORIDE 0.45% 1,000 ML IV SCH (09:30)
[2017-01-10] MEDS: PROPOFOL 100 ML IV SCH ×3 (09:31→22:00)
--- NOTE | 2017-01-10 09:32 | PN ---
Date/Time of Note Date/Time of Note DATE: 01/10/17 TIME: 09:25 Assessment/Plan VTE Prophylaxis VTE Prophylaxis Intervention: contraindicated VTE Contraindication Reason: bleeding Lines/Catheters IV Catheter Type (from Nrsg): PICC Line Central line still needed: Yes Urinary Cath still in place: Yes Reason Cath still needed: urinary retention Assessment/Plan Chief Complaint/Hosp Course 36 y/o with # Upper GI bleed s/P EGD with gastritis and gastroparesis on Protonix and Reglan # Partial SBO qi # NICOLAS likely Oliguric ATN vs HRS, Cr peaking 4.81 today # ETOH withdrawal on Ativan/librium # ETOH pancreatitis with Lipase 7690> trending down to 2000> trended down siginificantly # Acute on chronic liver failure likely Etoh abuse with elevated INR, Hyperbilirubenemia, low platelets, # Hepatic encephalopathy with elevated Ammonia levels down to 82 # Depression # Hypokalemia # Non Gap Acidosis likely combination of renal failure and diarrhoea # Leukocytosis could be pancreatitis vs Alcholic hepatitis Recs - Albumin challenge - Bictra 30 ml bid for acidosis - Spoke to Dr Mercer will give prednisolone today and Vit K - Monitor kidney function closely for HD needs - Nebs per pulmonary - c/w Meropenam - taper off librium - Flush minaya Q shift - Vent management per Pulmonary - c/w ICU care Problems: Subjective 24 Hr Interval Summary Free Text/Dictation Small bowel series show no obstruction Unable to tolerate NG last nite WBC 30,000 UOP was 870 ml Stool output was 1400 ml Exam/Review of Systems Vital Signs Vitals Vital Signs Date Time Temp Pulse Resp B/P Pulse Ox O2 Delivery O2 Flow Rate FiO2 01/10/17 09:00 109 30 128/55 99 Mechanical Ventilator 01/10/17 08:00 30 01/10/17 07:30 99.6 01/07/17 13:00 6.0 Intake and Output 01/09/17 01/09/17 01/10/17 15:00 23:00 07:00 Intake Total 428.927 ml 509.387 ml 768.302 ml Output Total 240 ml 1240 ml 1620 ml Balance 188.927 ml -730.613 ml -851.698 ml Exam Gen:Intubated on propofol HEENT: blood tinged teeth, Scleral icterus Neck:supple CVS: Regular rate and rthym Lungs: Coarse breath sounds b/l Abdomen: distended ++, faint bowel sounds Ext: + edema Results Result Diagram: 01/10/17 0400 01/10/17 0400 Results 24 hrs Laboratory Tests Test 01/09/17 09:40 01/09/17 13:40 01/09/17 17:13 01/09/17 21:42 Bedside Glucose 157 98 143 Urine Color ANITRA Urine Clarity SLIGHTLY CLOUDY A Urine pH 5.0 Urine Specific [place] 1.015 Urine Ketones NEGATIVE Urine Nitrite NEGATIVE Urine Bilirubin 2+ H Urine Urobilinogen 2+ H Urine Leukocyte Esterase NEGATIVE Urine Microscopic RBC 11 H Urine Microscopic WBC 1 Urine Mucus FEW A Urine Eosinophils % 0.0 Urine Hemoglobin 2+ H Urine Random Sodium < 13 L Urine Glucose NEGATIVE Urine Total Protein 1+ H Test 01/10/17 00:45 01/10/17 04:00 01/10/17 05:48 01/10/17 08:32 Bedside Glucose 134 148 130 White Blood Count 30.5 #H Red Blood Count 2.57 L Hemoglobin 8.7 L Hematocrit 27.3 L Mean Corpuscular Volume 106.2 H Mean Corpuscular Hemoglobin 33.9 H Mean Corpuscular Hemoglobin Concent 31.9 L Red Cell Distribution Width 24.6 H Platelet Count 85 L Mean Platelet Volume 11.7 H Neutrophils % Segmented Neutrophils % (Manual) 76 Band Neutrophils % (Manual) 5 H Lymphocytes % Lymphocytes % (Manual) 9 L Monocytes % Monocytes % (Manual) 10 Eosinophils % Basophils % Nucleated Red Blood Cells % 0.4 H Neutrophils # Neutrophils # (Manual) 23.6 H Band Neutrophils # 1.5 H Absolute Lymphocytes (Manual) 2.7 Lymphocytes # Monocytes # Absolute Monocytes (Manual) 3.0 H Eosinophils # Basophils # Nucleated Red Blood Cells # Platelet Estimate DECREASED Giant Platelets 1 H Polychromasia 1+ Poikilocytosis 3+ Anisocytosis 2+ Macrocytosis 2+ Prothrombin Time 27.7 H Prothrombin Time Ratio 2.2 INR International Normalized Ratio 2.54 Sodium Level 138 Potassium Level 4.1 Chloride Level 112 H Carbon Dioxide Level 16 L Anion Gap 14 Blood Urea Nitrogen 63 H Creatinine 4.81 H Glucose Level 121 # Calcium Level 7.3 L Phosphorus Level 5.5 #H Magnesium Level 2.2 Total Bilirubin 17.6 H Direct Bilirubin 16.30 *H Indirect Bilirubin 1.3 H Aspartate Amino Transf (AST/SGOT) 103 H Alanine Aminotransferase (ALT/SGPT) 27 Alkaline Phosphatase 379 H Ammonia 82 H Total Protein 6.4 Albumin 2.2 L Globulin 4.20 H Albumin/Globulin Ratio 0.52 Amylase Level 135 H Medications Medications Current Medications Ondansetron HCl (Zofran Inj) 4 mg Q6H PRN IV NAUSEA AND/OR VOMITING Last administered on 01/03/17 14:52; Admin Dose 4 MG; Start 01/02/17 at 23:00 Docusate Sodium (Colace) 100 mg Q12H PRN PO CONSTIPATION; Start 01/02/17 at 23: 00 Rifaximin (Xifaxan) 550 mg BID PO Last administered on 01/10/17 08:33; Admin Dose 550 MG; Start 01/04/17 at 11:00 Metoclopramide HCl (Reglan) 10 mg Q6 IV Last administered on 01/10/17 05:49; Admin Dose 10 MG; Start 01/05/17 at 00:00 Lorazepam (Ativan) 1 mg Q2 PRN IV ANXIETY Last administered on 01/07/17 22:53 ; Admin Dose 1 MG; Start 01/05/17 at 13:00 IV Flush (NS 10 ml) 10 ml PRN PRN IV IV PROTOCOL; Start 01/05/17 at 18:30 Diagnostic Test (Pha) (Accu-Chek) 1 ea Q4 XX Last administered on 01/10/17 08: 34; Admin Dose 1 EA; Start 01/06/17 at 17:00 Diazepam (Valium) 10 mg Q2H PRN IV ANXIETY Last administered on 01/08/17 01:43 ; Admin Dose 10 MG; Start 01/07/17 at 12:00 Pantoprazole (Protonix Iv) 40 mg DAILY IV Last administered on 01/10/17 08:33 ; Admin Dose 40 MG; Start 01/09/17 at 09:00 Lactulose 20 gm 20 gm Q6 NGT Last administered on 01/10/17 05:49; Admin Dose 20 GM; Start 01/08/17 at 18:00 Propofol 100 ml @ 2.217 mls/ hr Q12H IV Last administered on 01/09/17 17:09; Admin Dose 8.868 MLS/HR; Start 01/09/17 at 10:00 Meropenem/Sodium Chloride 50 ml @ 100 mls/hr Q12 IVPB Last administered on 08:33; Admin Dose 100 MLS/HR; Start 01/09/17 at 21:00 Total Parenteral Nutrition (Tpn) 1,000 ml @ 80 mls/hr [id number] IV Last administered on 01/10/17 06:19; Admin Dose 80 MLS/HR; Start 01/09/17 at 18:00 Alteplase, Recombinant (Cathflo (Activase)) 2 mg ONCE ONCE CATHETER ; Start at 10:00; Stop 01/10/17 at 10:01 Citric Acid/ Sodium Citrate (Bicitra) 30 ml BID NGT ; Start 01/10/17 at 10:30 Chlordiazepoxide 25 mg 25 mg DAILY PO ; Start 01/11/17 at 09:00 Sodium Chloride (1/2 NS) 1,000 ml @ 75 mls/hr [id number] IV ; Start 01/10/17 at 09 :30 BRAEDEN LUNSFORD MD Jan 10, 2017 09:32
[2017-01-10] MEDS ORDERED: ALTEPLASE (CATHFLO) 2 MG INJ CATHETER ONE (10:00)
[2017-01-10] MEDS ORDERED: CITRIC ACID/NA CITRATE 30 ML CUP NGT SCH (10:30)
[2017-01-10] MEDS ORDERED: BALSAM PERU/CASTOR OIL 60 GM TUBE TOP SCH (10:30)
--- NOTE | 2017-01-10 10:32 | CONS ---
Date/Time of Note Date/Time of Note DATE: 01/10/17 TIME: 10:29 Assessment/Plan Assessment/Plan Additional Assessment/Plan Additional Assessment/Plan IMPRESSION: 1. Delirium tremens. The patient is now intubated and on propofol 2. Hepatic encephalopathy. 3. Alcoholic liver disease. 4. Pancreatitis. Amylase has come down . Lipase is down 5. Leukocytosis. WBC count is 20 6. Renal insufficiency. Though the urine output is good. 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 Pedal edema and ascites 8. Thrombocytopenia 9. Ileus, small bowel follow-through was negative 10. Patient's gastroparesis might be related to uremia Plan Bilirubin is improving it has dropped down from 21-16.4 Leukocytosis, WBC count is increased to 30,000. All the cultures are negative most probably is related to alcoholic hepatitis Kidney function is deteriorating now it is 4 patient has developed volume overload manifested in the form of pedal edema and also ascites We will give him low-dose of Lasix 20 mg plan patient will be started on NG tube feeding nephro at 20 cc/h Will recheck CBC before giving packed cell RBC Discussed with the mother and risks of the family member [id number]. Continue all supportive care Will hold off on NG tube feeding Started patient on prednisolone for alcoholic hepatitis Patient is off propofol, case discussed with reeling operator and travel professional Consultation Date/Type/Reason Admit Date/Time Jan 02, 2017 at 19:30 Type of Consultation: Pulmonary/critical care Referring Provider: BRAEDEN LUNSFORD MD 24 HR Interval Summary Subjective hx not possible: pt non-verbal, pt critical Exam/Review of Systems Vital Signs Vitals Vital Signs Date Time Temp Pulse Resp B/P Pulse Ox O2 Delivery O2 Flow Rate FiO2 01/10/17 09:00 109 30 128/55 99 Mechanical Ventilator 01/10/17 08:00 30 01/10/17 07:30 99.6 01/07/17 13:00 6.0 Intake and Output 01/09/17 01/09/17 01/10/17 15:00 23:00 07:00 Intake Total 428.927 ml 509.387 ml 768.302 ml Output Total 240 ml 1240 ml 1620 ml Balance 188.927 ml -730.613 ml -851.698 ml Exam Respiratory: other (And is on the vent) Cardiovascular: nl pulses, regular rate and rhythm Gastrointestinal: nl liver, spleen, non-tender, soft Extremities: pitting pedal edema Neurological: unresponsive Results Result Diagram: 01/10/17 0400 01/10/17 0400 Results 24 hrs Laboratory Tests Test 01/09/17 13:40 01/09/17 17:13 01/09/17 21:42 01/10/17 00:45 Urine Color ANITRA Urine Clarity SLIGHTLY CLOUDY A Urine pH 5.0 Urine Specific [place] 1.015 Urine Ketones NEGATIVE Urine Nitrite NEGATIVE Urine Bilirubin 2+ H Urine Urobilinogen 2+ H Urine Leukocyte Esterase NEGATIVE Urine Microscopic RBC 11 H Urine Microscopic WBC 1 Urine Mucus FEW A Urine Eosinophils % 0.0 Urine Hemoglobin 2+ H Urine Random Sodium < 13 L Urine Glucose NEGATIVE Urine Total Protein 1+ H Bedside Glucose 98 143 134 Test 01/10/17 04:00 01/10/17 05:48 01/10/17 08:32 White Blood Count 30.5 #H Red Blood Count 2.57 L Hemoglobin 8.7 L Hematocrit 27.3 L Mean Corpuscular Volume 106.2 H Mean Corpuscular Hemoglobin 33.9 H Mean Corpuscular Hemoglobin Concent 31.9 L Red Cell Distribution Width 24.6 H Platelet Count 85 L Mean Platelet Volume 11.7 H Neutrophils % Segmented Neutrophils % (Manual) 76 Band Neutrophils % (Manual) 5 H Lymphocytes % Lymphocytes % (Manual) 9 L Monocytes % Monocytes % (Manual) 10 Eosinophils % Basophils % Nucleated Red Blood Cells % 0.4 H Neutrophils # Neutrophils # (Manual) 23.6 H Band Neutrophils # 1.5 H Absolute Lymphocytes (Manual) 2.7 Lymphocytes # Monocytes # Absolute Monocytes (Manual) 3.0 H Eosinophils # Basophils # Nucleated Red Blood Cells # Platelet Estimate DECREASED Giant Platelets 1 H Polychromasia 1+ Poikilocytosis 3+ Anisocytosis 2+ Macrocytosis 2+ Prothrombin Time 27.7 H Prothrombin Time Ratio 2.2 INR International Normalized Ratio 2.54 Sodium Level 138 Potassium Level 4.1 Chloride Level 112 H Carbon Dioxide Level 16 L Anion Gap 14 Blood Urea Nitrogen 63 H Creatinine 4.81 H Glucose Level 121 # Calcium Level 7.3 L Phosphorus Level 5.5 #H Magnesium Level 2.2 Total Bilirubin 17.6 H Direct Bilirubin 16.30 *H Indirect Bilirubin 1.3 H Aspartate Amino Transf (AST/SGOT) 103 H Alanine Aminotransferase (ALT/SGPT) 27 Alkaline Phosphatase 379 H Ammonia 82 H Total Protein 6.4 Albumin 2.2 L Globulin 4.20 H Albumin/Globulin Ratio 0.52 Amylase Level 135 H Bedside Glucose 148 130 Medications Medications Current Medications Ondansetron HCl (Zofran Inj) 4 mg Q6H PRN IV NAUSEA AND/OR VOMITING Last administered on 01/03/17 14:52; Admin Dose 4 MG; Start 01/02/17 at 23:00 Docusate Sodium (Colace) 100 mg Q12H PRN PO CONSTIPATION; Start 01/02/17 at 23: 00 Rifaximin (Xifaxan) 550 mg BID PO Last administered on 01/10/17 08:33; Admin Dose 550 MG; Start 01/04/17 at 11:00 Metoclopramide HCl (Reglan) 10 mg Q6 IV Last administered on 01/10/17 05:49; Admin Dose 10 MG; Start 01/05/17 at 00:00 Lorazepam (Ativan) 1 mg Q2 PRN IV ANXIETY Last administered on 01/07/17 22:53 ; Admin Dose 1 MG; Start 01/05/17 at 13:00 IV Flush (NS 10 ml) 10 ml PRN PRN IV IV PROTOCOL; Start 01/05/17 at 18:30 Diagnostic Test (Pha) (Accu-Chek) 1 ea Q4 XX Last administered on 01/10/17 08: 34; Admin Dose 1 EA; Start 01/06/17 at 17:00 Diazepam (Valium) 10 mg Q2H PRN IV ANXIETY Last administered on 01/08/17 01:43 ; Admin Dose 10 MG; Start 01/07/17 at 12:00 Pantoprazole (Protonix Iv) 40 mg DAILY IV Last administered on 01/10/17 08:33 ; Admin Dose 40 MG; Start 01/09/17 at 09:00 Lactulose 20 gm 20 gm Q6 NGT Last administered on 01/10/17 05:49; Admin Dose 20 GM; Start 01/08/17 at 18:00 Propofol 100 ml @ 2.217 mls/ hr Q12H IV Last administered on 01/09/17 17:09; Admin Dose 8.868 MLS/HR; Start 01/09/17 at 10:00 Meropenem/Sodium Chloride 50 ml @ 100 mls/hr Q12 IVPB Last administered on 08:33; Admin Dose 100 MLS/HR; Start 01/09/17 at 21:00 Total Parenteral Nutrition (Tpn) 1,000 ml @ 40 mls/hr Q24H IV Last administered on 01/10/17 06:19; Admin Dose 80 MLS/HR; Start 01/09/17 at 18:00 Citric Acid/ Sodium Citrate (Bicitra) 30 ml BID NGT ; Start 01/10/17 at 10:30 Chlordiazepoxide 25 mg 25 mg DAILY PO ; Start 01/11/17 at 09:00 Sodium Chloride (1/2 NS) 1,000 ml @ 75 mls/hr [id number] IV Last administered on 01/10/17 09:46; Admin Dose 75 MLS/HR; Start 01/10/17 at 09:30 Prednisolone (Prednisolone) 40 mg DAILY PO ; Start 01/10/17 at 11:00 LAURA CORDERO MD Jan 10, 2017 10:32
--- NOTE | 2017-01-10 11:00 | CONS ---
Date/Time of Note Date/Time of Note DATE: 01/10/17 TIME: 10:56 Assessment/Plan Assessment/Plan Additional Assessment/Plan Ventilator setting; AC of 16, tidal volume 500, PEEP of 5, 30% FiO2. Assessment and recommendations; 1. Patient admitted with severe alcoholic cirrhosis with hepatic encephalopathy leading to respiratory failure. 2. Upper GI bleed from gastritis. Without any further bleeding, status post EGD. 3. Gingival bleeding with interval resolution. 4. Hepatorenal syndrome. 5. Worsening metabolic acidosis. 6. Anemia and thrombocytopenia. 7. Likely bilateral aspiration pneumonia. Continue current supportive care. Sodium bicarbonate via NG tube. Monitor renal function. Continue to hold propofol. Continue current antibiotics. Prognosis is guarded. Consultation Date/Type/Reason Admit Date/Time Jan 02, 2017 at 19:30 Initial Consult Date 01/07/17 Type of Consultation: Pulmonary/critical care Referring Provider: BRAEDEN LUNSFORD MD 24 HR Interval Summary Free Text/Dictation Patient's condition remains critical. Patient however has remained hemodynamically stable. No untoward events reported. Patient had been taken off sedation short while ago and is currently still under the sedative effect and is unresponsive at this point. General exam; young male, orally intubated, sedated. Currently in no distress. Exam/Review of Systems Vital Signs Vitals Vital Signs Date Time Temp Pulse Resp B/P Pulse Ox O2 Delivery O2 Flow Rate FiO2 01/10/17 10:30 108 30 116/62 100 Mechanical Ventilator 01/10/17 08:00 30 01/10/17 07:30 99.6 01/07/17 13:00 6.0 Intake and Output 01/09/17 01/09/17 01/10/17 15:00 23:00 07:00 Intake Total 428.927 ml 509.387 ml 768.302 ml Output Total 240 ml 1240 ml 1620 ml Balance 188.927 ml -730.613 ml -851.698 ml Exam H ENT exam; supple neck, no JVD. No lymphadenopathy. Midline trachea. No thyromegaly. Orally intubated. No active oral bleeding seen. Pupils are small bilaterally. Patient remains strongly icteric. Next Chest exam; clear to auscultation. S1-S2 audible, no murmurs. Regular rhythm. Abdomen exam; protuberant, bowel sounds are absent. No organomegaly felt. Umbilicus is inverted. No scrotal edema. Extremity exam; no edema. Pulses 1+ bilaterally. PEST CONTROL SUPERVISOR exam; patient is sedated. Results Result Diagram: 01/10/17 0400 01/10/17 0400 Results 24 hrs Laboratory Tests Test 01/09/17 13:40 01/09/17 17:13 01/09/17 21:42 01/10/17 00:45 Urine Color ANITRA Urine Clarity SLIGHTLY CLOUDY A Urine pH 5.0 Urine Specific [place] 1.015 Urine Ketones NEGATIVE Urine Nitrite NEGATIVE Urine Bilirubin 2+ H Urine Urobilinogen 2+ H Urine Leukocyte Esterase NEGATIVE Urine Microscopic RBC 11 H Urine Microscopic WBC 1 Urine Mucus FEW A Urine Eosinophils % 0.0 Urine Hemoglobin 2+ H Urine Random Sodium < 13 L Urine Glucose NEGATIVE Urine Total Protein 1+ H Bedside Glucose 98 143 134 Test 01/10/17 04:00 01/10/17 05:48 01/10/17 08:32 White Blood Count 30.5 #H Red Blood Count 2.57 L Hemoglobin 8.7 L Hematocrit 27.3 L Mean Corpuscular Volume 106.2 H Mean Corpuscular Hemoglobin 33.9 H Mean Corpuscular Hemoglobin Concent 31.9 L Red Cell Distribution Width 24.6 H Platelet Count 85 L Mean Platelet Volume 11.7 H Neutrophils % Segmented Neutrophils % (Manual) 76 Band Neutrophils % (Manual) 5 H Lymphocytes % Lymphocytes % (Manual) 9 L Monocytes % Monocytes % (Manual) 10 Eosinophils % Basophils % Nucleated Red Blood Cells % 0.4 H Neutrophils # Neutrophils # (Manual) 23.6 H Band Neutrophils # 1.5 H Absolute Lymphocytes (Manual) 2.7 Lymphocytes # Monocytes # Absolute Monocytes (Manual) 3.0 H Eosinophils # Basophils # Nucleated Red Blood Cells # Platelet Estimate DECREASED Giant Platelets 1 H Polychromasia 1+ Poikilocytosis 3+ Anisocytosis 2+ Macrocytosis 2+ Prothrombin Time 27.7 H Prothrombin Time Ratio 2.2 INR International Normalized Ratio 2.54 Sodium Level 138 Potassium Level 4.1 Chloride Level 112 H Carbon Dioxide Level 16 L Anion Gap 14 Blood Urea Nitrogen 63 H Creatinine 4.81 H Glucose Level 121 # Calcium Level 7.3 L Phosphorus Level 5.5 #H Magnesium Level 2.2 Total Bilirubin 17.6 H Direct Bilirubin 16.30 *H Indirect Bilirubin 1.3 H Aspartate Amino Transf (AST/SGOT) 103 H Alanine Aminotransferase (ALT/SGPT) 27 Alkaline Phosphatase 379 H Ammonia 82 H Total Protein 6.4 Albumin 2.2 L Globulin 4.20 H Albumin/Globulin Ratio 0.52 Amylase Level 135 H Bedside Glucose 148 130 Medications Medications Current Medications Ondansetron HCl (Zofran Inj) 4 mg Q6H PRN IV NAUSEA AND/OR VOMITING Last administered on 01/03/17 14:52; Admin Dose 4 MG; Start 01/02/17 at 23:00 Docusate Sodium (Colace) 100 mg Q12H PRN PO CONSTIPATION; Start 01/02/17 at 23: 00 Rifaximin (Xifaxan) 550 mg BID PO Last administered on 01/10/17 08:33; Admin Dose 550 MG; Start 01/04/17 at 11:00 Metoclopramide HCl (Reglan) 10 mg Q6 IV Last administered on 01/10/17 05:49; Admin Dose 10 MG; Start 01/05/17 at 00:00 Lorazepam (Ativan) 1 mg Q2 PRN IV ANXIETY Last administered on 01/07/17 22:53 ; Admin Dose 1 MG; Start 01/05/17 at 13:00 IV Flush (NS 10 ml) 10 ml PRN PRN IV IV PROTOCOL; Start 01/05/17 at 18:30 Diagnostic Test (Pha) (Accu-Chek) 1 ea Q4 XX Last administered on 01/10/17 08: 34; Admin Dose 1 EA; Start 01/06/17 at 17:00 Diazepam (Valium) 10 mg Q2H PRN IV ANXIETY Last administered on 01/08/17 01:43 ; Admin Dose 10 MG; Start 01/07/17 at 12:00 Pantoprazole (Protonix Iv) 40 mg DAILY IV Last administered on 01/10/17 08:33 ; Admin Dose 40 MG; Start 01/09/17 at 09:00 Lactulose 20 gm 20 gm Q6 NGT Last administered on 01/10/17 05:49; Admin Dose 20 GM; Start 01/08/17 at 18:00 Propofol 100 ml @ 2.217 mls/ hr Q12H IV Last administered on 01/09/17 17:09; Admin Dose 8.868 MLS/HR; Start 01/09/17 at 10:00 Meropenem/Sodium Chloride 50 ml @ 100 mls/hr Q12 IVPB Last administered on 08:33; Admin Dose 100 MLS/HR; Start 01/09/17 at 21:00 Total Parenteral Nutrition (Tpn) 1,000 ml @ 40 mls/hr Q24H IV Last administered on 01/10/17 06:19; Admin Dose 80 MLS/HR; Start 01/09/17 at 18:00 Citric Acid/ Sodium Citrate (Bicitra) 30 ml BID NGT Last administered on 10:44; Admin Dose 30 ML; Start 01/10/17 at 10:30 Chlordiazepoxide 25 mg 25 mg DAILY PO ; Start 01/11/17 at 09:00 Sodium Chloride (1/2 NS) 1,000 ml @ 75 mls/hr [id number] IV Last administered on 01/10/17 09:46; Admin Dose 75 MLS/HR; Start 01/10/17 at 09:30 Prednisolone (Prednisolone) 40 mg DAILY PO ; Start 01/10/17 at 11:00 NERI MCKEON Jan 10, 2017 11:00
[2017-01-10] MEDS ORDERED: ALBUMIN HUMAN 25% 100 ML IV SCH (12:00)
[2017-01-10] MEDS ORDERED: VANCOMYCIN IV PER PHARMACY XX SCH (12:00)
[2017-01-10] MEDS: predniSOLONE 5 MG TAB PO SCH (12:18)
--- NOTE | 2017-01-10 12:21 | PN ---
DATE: 01/10/2017 SUBJECTIVE DATA: No events overnight. Patient remains intubated, sedated, spiking low-grade fevers of 99.6 T max, heart rate 112, respirations 30, blood pressure 127/54, saturation 99 on vent. LABORATORY AND DIAGNOSTIC DATA: WBC 30.5. H and H 8.7 and 27.3, platelets 85,000, neutrophils 76, bands 5. Sodium 138, potassium 4.1, BUN 63, creatinine 4.81, calcium 7.3, total bilirubin 17.6. MICROBIOLOGY: All cultures negative. DIAGNOSTICS: No new diagnostics this morning. Renal ultrasound yesterday revealed echogenic kidneys, possibly medical renal disease, nonobstructive left renal stones, small amount of ascites in the abdomen and pelvis. ANTIMICROBIALS: Patient is on meropenem. He also was started on steroids this morning. He is also on Reglan and rifaximin,. INDWELLING: Endotracheal tube, NG tube, [place] catheter, and PICC line placed on January 05. PHYSICAL EXAMINATION: GENERAL: A well-developed, ill-appearing middle-aged man, who is intubated, sedated, in no distress. HEENT: Head atraumatic, normocephalic. Sclerae icteric. Buccal mucosa dry. NECK: Supple. CHEST: Rise symmetrical. Breath sounds diminished at the bases. HEART: S1, S2. Tachycardic, regular. ABDOMEN: Soft. Bowel sounds hypoactive. EXTREMITIES: With trace edema. SKIN: Positive for jaundice. ASSESSMENT: 1. Severe sepsis with multisystem organ failure. 2. Acute alcoholic pancreatitis. 3. Acute respiratory failure, status post intubated. 4. Possible aspiration pneumonia. 5. Acute renal failure. 6. Alcoholic liver disease. 7. Subcapsular liver collection, possible hematoma versus other, per CT of the abdomen. 8. Severe acidosis. PLAN: Patient is doing poorly with worsening white blood cell count. He is on meropenem. We will start him on Vancomycin for gram-positive coverage. Await for sputum culture. Follow recommendations of consultants. Will discuss with renal Dictated By: Thom Loyd NP /derek/vladimir /Document#: [id number] DYLON
[2017-01-10] MEDS: NA BICARBONATE 650 MG TAB NGT SCH ×2 (13:24→21:07)
[2017-01-10] MEDS: BALSAM PERU/CASTOR OIL 60 GM TUBE TOP SCH ×2 (13:25→20:36)
[2017-01-10] MEDS ORDERED: VANCOMYCIN 1 GM in NS 250 ML IVPB SCH (13:30)
--- NOTE | 2017-01-10 22:53 | PN ---
Date/Time of Note Date/Time of Note DATE: 01/10/17 TIME: 22:49 Assessment/Plan Lines/Catheters IV Catheter Type (from [facility]): PICC Line Minaya in Place (from [facility]): Yes Assessment/Plan Chief Complaint/Hosp Course 1. Paralytic ileus 2nd acute processes. SBFT negative. -Monitor 2. Acute on chronic alcoholic pancreatitis with peripancreatic fluid: amylase/ lipase. Improving -Supportive measures -Judicious fluid management -Trend labs -Encourage cessation 3. Acute GI bleed from gastritis and esophageal varices secondary to alcoholism ; dried blood noted in mouth, no output from ng tube. Stable -Transfuse as needed -Supportive measures: ppi -Correct coagulopathy and platelet dysfunction 4. Anemia secondary to above -As above 5. Leukocytosis, multifactorial with SIRS and steroid therapy, ? infectious -Close monitoring -Antibiotics for bacterial translocation 6. Alcoholic hepatitis with hepatosplenomegaly -Medical and GI optimization 7. Chronic alcohol abuse with Delirium Tremens -Encourage cessation -Sedation/intubation 8. Subcapsular liver collection possible hematoma versus other -Monitor 9. Electrolyte imbalance -Correct with replacements and fluid management 10. Alcohol withdrawal with tachypnea, tachycardia and delirium tremens -supportive -?ciwa protocol 11. NICOLAS: decreased output -judicious fluids -avoid nephrotoxic meds 12. Pulm edema: ?2/ #11 -gentle diuresis -as above Thank you, Problems: Subjective 24 Hr Interval Summary SBFT negative. Sedated. Tremors and diaphoresis improved. Rectal tube output. Tachycardia. No fevers. No cough. No vomiting. No pressors. Worsening cr and wbc Exam/Review of Systems Vital Signs Vitals Vital Signs Date Time Temp Pulse Resp B/P Pulse Ox O2 Delivery O2 Flow Rate FiO2 01/10/17 21:31 106 28 98 30 01/10/17 21:00 109/61 Mechanical Ventilator 01/10/17 20:00 98.8 01/07/17 13:00 6.0 Intake and Output 01/09/17 01/09/17 01/10/17 15:00 23:00 07:00 Intake Total 428.927 ml 509.387 ml 768.302 ml Output Total 240 ml 1240 ml 1620 ml Balance 188.927 ml -730.613 ml -851.698 ml Exam Free Text/Dictation Constitutional: No distress, No oriented. Sedated and intubated. Psych: Sedated and intubated. No nl mood/affect Head: atraumatic, normocephalic, No hematomas, No lacerations Eyes: EOMI, PERRL, icteric ENMT: nl external ears & nose, nl lips & teeth, dried blood oral, ng tube without drainage. No mucosa pink and moist. ETT Neck: non-tender, supple, No jvd Respiratory: crackles, intubated. No congested cough, No labored breathing Cardiovascular: No edema, No regular rate and rhythm: ST Gastrointestinal: soft, non-tender, distended, +rectal tube output. No rebound or guarding Musculoskeletal: nl extremities to inspection, No joint tenderness Extremities: normal pulses, No calf tenderness, No cyanosis Neurological: No nl mental status, No nl speech, No nl strength Skin: rash or lesions (Jaundice), No diaphoresis, No nl turgor : minaya with luis output (decreased) Lymph: nl lymph nodes, nontender Results Result Diagram: 01/10/1739901/10/17399 PETER TAMEZ MD Jan 10, 2017 22:53
[2017-01-11] VITALS (56 sets, daily range): BP systolic 111–131; BP diastolic 45–83; PULSE 94–113; RESP 20–37
[2017-01-11] MEDS: LACTULOSE 30ML CUP NGT SCH ×6 (00:09→23:17)
[2017-01-11] MEDS: METOCLOPRAMIDE 10 MG INJ IV SCH ×5 (00:09→23:17)
[2017-01-11] MEDS ORDERED: ALBUMIN HUMAN 25% 100 ML IVPB ONE (00:30)
[2017-01-11] MEDS: ACCU-CHEK XX SCH ×6 (01:17→21:22)
[2017-01-11] MEDS: TPN 1,000 ML IV SCH (05:02)
[2017-01-11] MEDS: NA BICARBONATE 650 MG TAB NGT SCH ×3 (05:14→21:22)
[2017-01-11 05:36] LABS: ABNORMAL IP MESSAGE 1; BASOPHIL # 0.1 10^3/ul (0.0-0.1); BASOPHILS % 0.2 % (0.0-2.0); HEMATOCRIT 25.1 % (42.0-52.0); HEMOGLOBIN 8.5 g/dl (14.0-18.0); LYMPHOCYTES # 1.2 10^3/ul (0.8-2.9); LYMPHOCYTES % 4.3 % (15.0-51.0); MEAN CORPUSCULAR HGB CONC 33.9 g/dl (32.0-37.0); MEAN CORPUSCULAR VOLUME 106.4 fl (82.0-101.0); MEAN PLATELET VOLUME 12.5 fl (7.4-10.4); MONOCYTE # 1.9 10^3/ul (0.3-0.9); MONOCYTES % 6.7 % (0.0-11.0); NEUTROPHIL # 23.9 10^3/ul (1.6-7.5); NEUTROPHILS % 85.9 % (39.0-77.0); NUCLEATED RED BLOOD CELLS # 0.1 10^3/ul (0.0-0.0); NUCLEATED RED BLOOD CELLS% 0.2 /100WBC (0.0-0.0); PLATELET COUNT 83 10^3/UL (140-415); POSITIVE DIFF @See below; RED BLOOD COUNT 2.36 10^6/ul (4.70-6.10); RED CELL DISTRIBUTION WIDTH 23.9 % (11.5-14.5); WHITE BLOOD COUNT 27.9 10^3/ul (4.8-10.8)
[2017-01-11 06:02] LABS: MAGNESIUM 2.2 mg/dl (1.7-2.5); PHOSPHORUS 7.5 mg/dl (2.5-4.9)
[2017-01-11 06:03] LABS: ALBUMIN 2.3 g/dl (3.3-4.9); ALBUMIN/GLOBULIN RATIO 0.54; BILIRUBIN,INDIRECT 1.2 mg/dl (0-1.1); CALCIUM 7.3 mg/dl (8.4-10.2); POTASSIUM 4.2 mmol/L (3.5-5.1); TOTAL PROTEIN 6.5 g/dl (6.1-8.1)
[2017-01-11 06:21] LABS: CREATININE 5.13 mg/dl (0.61-1.24)
[2017-01-11 06:22] LABS: BILIRUBIN,DIRECT 16.7 mg/dl (0.00-0.20)
[2017-01-11 06:23] LABS: BILIRUBIN,TOTAL 17.9 mg/dl (0.2-1.3)
--- NOTE | 2017-01-11 08:20 | RADRPT ---
PROCEDURE: XR Chest. CLINICAL INDICATION: Shortness of breath. TECHNIQUE: Single frontal view. COMPARISON: 01/09/2017. FINDINGS: The endotracheal tube, nasogastric tube, and left arm PICC line remain in satisfactory position. The re is mild atelectasis at the lung bases, unchanged. The lungs are otherwise clear. The heart is normal in size. There is no pleural effusion. There is no pneumothorax. IMPRESSION: 1. No change from 01/09/2017. RPTAT: QQ .Jesse Sanchez MD, MD Date Time Electronically viewed and signed by .Jesse Sanchez MD, MD on 01/11/2017 08:20 .R/
[2017-01-11] MEDS: MEROPENEM 500MG/50 ML (PMX) 50 ML IVPB SCH (08:31)
[2017-01-11] MEDS: PANTOPRAZOLE 40 MG INJ IV SCH (08:31)
[2017-01-11] MEDS: LORAZEPAM 2 MG INJ IV PRN (08:32)
[2017-01-11] MEDS: predniSOLONE 5 MG TAB PO SCH (08:32)
[2017-01-11] MEDS: RIFAXIMIN 550 MG TAB PO SCH ×2 (08:32→21:21)
[2017-01-11] MEDS: CHLORDIAZEPOXIDE 25 MG CAP PO SCH (08:32)
[2017-01-11] MEDS: BALSAM PERU/CASTOR OIL 60 GM TUBE TOP SCH ×2 (08:33→21:22)
[2017-01-11] MEDS ORDERED: ALBUMIN HUMAN 25% 100 ML IV SCH (09:00)
--- NOTE | 2017-01-11 09:19 | PN ---
Date/Time of Note Date/Time of Note DATE: 01/11/17 TIME: 09:10 Assessment/Plan VTE Prophylaxis VTE Prophylaxis Intervention: contraindicated VTE Contraindication Reason: bleeding Lines/Catheters IV Catheter Type (from Nrsg): PICC Line Central line still needed: Yes Urinary Cath still in place: Yes Reason Cath still needed: urinary retention Assessment/Plan Chief Complaint/Hosp Course 36 y/o with # Upper GI bleed s/P EGD with gastritis and gastroparesis on Protonix and Reglan # Partial SBO qi # NICOLAS likely Oliguric ATN vs HRS, BUN/CR 88/5.31, UOP 1300 ml # ETOH withdrawal # ETOH pancreatitis with Lipase 7690> trending down to 2000> pending # Acute on chronic liver failure likely Etoh abuse with elevated INR, Hyperbilirubenemia, low platelets with ETOH hepatitis # Hepatic encephalopathy with elevated Ammonia levels # Depression # Hypokalemia # Non Gap Acidosis due to renal failure/ diarrhoea # Leukocytosis could be pancreatitis vs aspiration on cefepime and Vancomycin per I.D # Anemia and Thrombocytopenia # Elevated INR # Hyperphosphetemia due to reduced renal clearence Recs - Albumin challenge for volume expansion - Trial of octreotide. would not benefit from midrodrine due to normal BP - Will get Coag today - Will talk to Mother for possible HD - c/w Meropenam - c/w Prednisolone - Na bicarb thru NG tube - Flush minaya Q shift - Vent management per Pulmonary - Spoke to Dr Mercer for possible transfer to [facility] - c/w ICU care Problems: Subjective 24 Hr Interval Summary Free Text/Dictation Uop was 1300 ml yesterday Given 2 doses of albumin for intravascular expansion Intubated Ammonia 85 Pt responds to deep stimulation Exam/Review of Systems Vital Signs Vitals Vital Signs Date Time Temp Pulse Resp B/P Pulse Ox O2 Delivery O2 Flow Rate FiO2 01/11/17 08:00 99.9 112 31 122/55 100 Mechanical Ventilator 01/11/17 05:33 30 01/07/17 13:00 6.0 Intake and Output 01/10/17 01/10/17 01/11/17 15:00 23:00 07:00 Intake Total 752.2 ml 328.8 ml 295.8 ml Output Total 525 ml 905 ml 1390 ml Balance 227.2 ml -576.2 ml -1094.2 ml Exam Gen:Intubated on propofol HEENT: blood tinged teeth, Scleral icterus Neck:supple CVS: Regular rate and rthym Lungs: Coarse breath sounds b/l Abdomen: distended ++, faint bowel sounds Ext: + edema minaya Rectal tube with stool output Results Result Diagram: 01/11/17 0400 01/11/17 0400 Results 24 hrs Laboratory Tests Test 01/10/17 13:32 01/10/17 17:16 01/10/17 20:26 01/11/17 01:15 Bedside Glucose 129 138 143 133 Test 01/11/17 04:00 01/11/17 05:09 01/11/17 07:29 01/11/17 08:11 White Blood Count 27.9 H Red Blood Count 2.36 L Hemoglobin 8.5 L Hematocrit 25.1 L Mean Corpuscular Volume 106.4 H Mean Corpuscular Hemoglobin 36.0 H Mean Corpuscular Hemoglobin Concent 33.9 Red Cell Distribution Width 23.9 H Platelet Count 83 L Mean Platelet Volume 12.5 H Neutrophils % 85.9 H Lymphocytes % 4.3 L Monocytes % 6.7 Eosinophils % 0.0 Basophils % 0.2 Nucleated Red Blood Cells % 0.2 H Neutrophils # 23.9 H Lymphocytes # 1.2 Monocytes # 1.9 H Eosinophils # 0.0 Basophils # 0.1 Nucleated Red Blood Cells # 0.1 H Sodium Level 139 Potassium Level 4.2 Chloride Level 111 H Carbon Dioxide Level 17 L Anion Gap 15 Blood Urea Nitrogen 88 H Creatinine 5.13 H Glucose Level 123 Calcium Level 7.3 L Phosphorus Level 7.5 #H Magnesium Level 2.2 Total Bilirubin 17.9 H Direct Bilirubin 16.70 *H Indirect Bilirubin 1.2 H Aspartate Amino Transf (AST/SGOT) 90 H Alanine Aminotransferase (ALT/SGPT) 23 Alkaline Phosphatase 356 H Ammonia 85 H Total Protein 6.5 Albumin 2.3 L Globulin 4.20 H Albumin/Globulin Ratio 0.54 Lipase 487 H Bedside Glucose 136 126 Lab Scanned Report REFERENCE LAB Medications Medications Current Medications Ondansetron HCl (Zofran Inj) 4 mg Q6H PRN IV NAUSEA AND/OR VOMITING Last administered on 01/03/17t 14:52; Admin Dose 4 MG; Start 01/02/17 at 23:00 Docusate Sodium (Colace) 100 mg Q12H PRN PO CONSTIPATION; Start 01/02/17 at 23: 00 Rifaximin (Xifaxan) 550 mg BID PO Last administered on 01/11/17 08:32; Admin Dose 550 MG; Start 01/04/17 at 11:00 Metoclopramide HCl (Reglan) 10 mg Q6 IV Last administered on 01/11/17 05:14; Admin Dose 10 MG; Start 01/05/17 at 00:00 Lorazepam (Ativan) 1 mg Q2 PRN IV ANXIETY Last administered on 01/11/17 08:32 ; Admin Dose 1 MG; Start 01/05/17 at 13:00 IV Flush (NS 10 ml) 10 ml PRN PRN IV IV PROTOCOL; Start 01/05/17 at 18:30 Diagnostic Test (Pha) (Accu-Chek) 1 ea Q4 XX Last administered on 01/11/17 08: 12; Admin Dose 1 EA; Start 01/06/17 at 17:00 Diazepam (Valium) 10 mg Q2H PRN IV ANXIETY Last administered on 01/08/17 01:43 ; Admin Dose 10 MG; Start 01/07/17 at 12:00 Pantoprazole (Protonix Iv) 40 mg DAILY IV Last administered on 01/11/17 08:31 ; Admin Dose 40 MG; Start 01/09/17 at 09:00 Lactulose 20 gm 20 gm Q6 NGT Last administered on 01/11/17 05:14; Admin Dose 20 GM; Start 01/08/17 at 18:00 Propofol 100 ml @ 2.217 mls/ hr Q12H IV Last administered on 01/10/17 13:16; Admin Dose 2.217 MLS/HR; Start 01/09/17 at 10:00 Meropenem/Sodium Chloride 50 ml @ 100 mls/hr Q12 IVPB Last administered on 08:31; Admin Dose 100 MLS/HR; Start 01/09/17 at 21:00 Total Parenteral Nutrition (Tpn) 1,000 ml @ 40 mls/hr Q24H IV Last administered on 01/11/17 05:02; Admin Dose 40 MLS/HR; Start 01/09/17 at 18:00 Chlordiazepoxide (Librium) 25 mg DAILY PO Last administered on 01/11/17 08:32 ; Admin Dose 25 MG; Start 01/11/17 at 09:00 Prednisolone (Prednisolone) 40 mg DAILY PO Last administered on 01/11/17 08:32 ; Admin Dose 40 MG; Start 01/10/17 at 11:00 Sodium Bicarbonate 650 mg 650 mg Q8 NGT Last administered on 01/11/17 05:14; Admin Dose 650 MG; Start 01/10/17 at 14:00 Albumin Human (Albumin Human 25%) 100 ml @ 100 mls/hr Q8H IV ; Start 01/11/17 at 09:00; Stop 01/12/17 at 01:59; Status UNBRAEDEN BARRAGAN MD Jan 11, 2017 09:19
--- NOTE | 2017-01-11 10:22 | CONS ---
Date/Time of Note Date/Time of Note DATE: 01/11/17 TIME: 10:18 Assessment/Plan Assessment/Plan Additional Assessment/Plan Chest x-ray was reviewed from today which is showing improvement in bilateral infiltrates. Endotracheal tube is at an adequate level. Patient is currently on propofol at 9 mics per kilogram per minute. Assessment and recommendations; 1. Patient admitted with hepatic encephalopathy with severe gastritis status post EGD. 2. Respiratory failure. 3. Anemia. Currently with stable hematocrit. 4. Worsening renal function due to hepatorenal syndrome. 5. Alcoholic cirrhosis. 6. Acute pancreatitis with significant improvement in lab values. Continue current treatment. Patient may need to be dialyzed. Prognosis is guarded. A 35 minutes of critical care time was spent evaluating the patient. Consultation Date/Type/Reason Admit Date/Time Jan 02, 2017 at 19:30 Initial Consult Date 01/07/17 Type of Consultation: Pulmonary/critical care Referring Provider: BRAEDEN LUNSFORD MD 24 HR Interval Summary Free Text/Dictation Patient's condition remains critical. Patient had to be re-sedated yesterday because of tachypnea. General exam; young male, orally intubated, sedated, currently in no distress. Exam/Review of Systems Vital Signs Vitals Vital Signs Date Time Temp Pulse Resp B/P Pulse Ox O2 Delivery O2 Flow Rate FiO2 01/11/17 08:00 109 01/11/17 08:00 99.9 31 122/55 100 Mechanical Ventilator 01/11/17 05:33 30 01/07/17 13:00 6.0 Intake and Output 01/10/17 01/10/17 01/11/17 15:00 23:00 07:00 Intake Total 752.2 ml 328.8 ml 295.8 ml Output Total 525 ml 905 ml 1390 ml Balance 227.2 ml -576.2 ml -1094.2 ml Exam HEENT exam; supple neck, no JVD. No lymphadenopathy. Midline trachea. No thyromegaly. Patient is orally intubated. Remains strongly icteric. Dentition is fair. No active oral bleeding seen. Chest exam; clear to auscultation. S1-S2 audible, no murmurs. Regular rhythm. Abdomen exam; soft, no organomegaly. Bowel sounds are absent. Abdomen is mildly protuberant. Extremity exam; no edema. Generalized icterus is present. HERB DIGGER exam; patient is sedated. Results Result Diagram: 01/11/17 0400 01/11/17 0400 Results 24 hrs Laboratory Tests Test 01/10/17 13:32 01/10/17 17:16 01/10/17 20:26 01/11/17 01:15 Bedside Glucose 129 138 143 133 Test 01/11/17 04:00 01/11/17 05:09 01/11/17 07:29 01/11/17 08:11 White Blood Count 27.9 H Red Blood Count 2.36 L Hemoglobin 8.5 L Hematocrit 25.1 L Mean Corpuscular Volume 106.4 H Mean Corpuscular Hemoglobin 36.0 H Mean Corpuscular Hemoglobin Concent 33.9 Red Cell Distribution Width 23.9 H Platelet Count 83 L Mean Platelet Volume 12.5 H Neutrophils % 85.9 H Lymphocytes % 4.3 L Monocytes % 6.7 Eosinophils % 0.0 Basophils % 0.2 Nucleated Red Blood Cells % 0.2 H Neutrophils # 23.9 H Lymphocytes # 1.2 Monocytes # 1.9 H Eosinophils # 0.0 Basophils # 0.1 Nucleated Red Blood Cells # 0.1 H Sodium Level 139 Potassium Level 4.2 Chloride Level 111 H Carbon Dioxide Level 17 L Anion Gap 15 Blood Urea Nitrogen 88 H Creatinine 5.13 H Glucose Level 123 Calcium Level 7.3 L Phosphorus Level 7.5 #H Magnesium Level 2.2 Total Bilirubin 17.9 H Direct Bilirubin 16.70 *H Indirect Bilirubin 1.2 H Aspartate Amino Transf (AST/SGOT) 90 H Alanine Aminotransferase (ALT/SGPT) 23 Alkaline Phosphatase 356 H Ammonia 85 H Total Protein 6.5 Albumin 2.3 L Globulin 4.20 H Albumin/Globulin Ratio 0.54 Lipase 487 H Bedside Glucose 136 126 Lab Scanned Report REFERENCE LAB Medications Medications Current Medications Ondansetron HCl (Zofran Inj) 4 mg Q6H PRN IV NAUSEA AND/OR VOMITING Last administered on 01/03/17 14:52; Admin Dose 4 MG; Start 01/02/17 at 23:00 Docusate Sodium (Colace) 100 mg Q12H PRN PO CONSTIPATION; Start 01/02/17 at 23: 00 Rifaximin (Xifaxan) 550 mg BID PO Last administered on 01/11/17 08:32; Admin Dose 550 MG; Start 01/04/17 at 11:00 Metoclopramide HCl (Reglan) 10 mg Q6 IV Last administered on 01/11/17 05:14; Admin Dose 10 MG; Start 01/05/17 at 00:00 Lorazepam (Ativan) 1 mg Q2 PRN IV ANXIETY Last administered on 01/11/17 08:32 ; Admin Dose 1 MG; Start 01/05/17 at 13:00 IV Flush (NS 10 ml) 10 ml PRN PRN IV IV PROTOCOL; Start 01/05/17 at 18:30 Diagnostic Test (Pha) (Accu-Chek) 1 ea Q4 XX Last administered on 01/11/17 08: 12; Admin Dose 1 EA; Start 01/06/17 at 17:00 Diazepam (Valium) 10 mg Q2H PRN IV ANXIETY Last administered on 01/08/17 01:43 ; Admin Dose 10 MG; Start 01/07/17 at 12:00 Pantoprazole (Protonix Iv) 40 mg DAILY IV Last administered on 01/11/17 08:31 ; Admin Dose 40 MG; Start 01/09/17 at 09:00 Lactulose 20 gm 20 gm Q6 NGT Last administered on 01/11/17 05:14; Admin Dose 20 GM; Start 01/08/17 at 18:00 Propofol 100 ml @ 2.217 mls/ hr Q12H IV Last administered on 01/10/17 13:16; Admin Dose 2.217 MLS/HR; Start 01/09/17 at 10:00 Meropenem/Sodium Chloride 50 ml @ 100 mls/hr Q12 IVPB Last administered on 08:31; Admin Dose 100 MLS/HR; Start 01/09/17 at 21:00 Total Parenteral Nutrition (Tpn) 1,000 ml @ 40 mls/hr Q24H IV Last administered on 01/11/17 05:02; Admin Dose 40 MLS/HR; Start 01/09/17 at 18:00 Chlordiazepoxide (Librium) 25 mg DAILY PO Last administered on 01/11/17 08:32 ; Admin Dose 25 MG; Start 01/11/17 at 09:00 Prednisolone (Prednisolone) 40 mg DAILY PO Last administered on 01/11/17 08:32 ; Admin Dose 40 MG; Start 01/10/17 at 11:00 Sodium Bicarbonate 650 mg 650 mg Q8 NGT Last administered on 01/11/17t 05:14; Admin Dose 650 MG; Start 01/10/17 at 14:00 Albumin Human 100 ml @ 100 mls/hr Q8H IV ; Start 01/11/17 at 09:00; Stop at 01:59 Octreotide Acetate/Sodium Chloride (Sandostatin/NS) 50 ml @ 2.5 mls/hr Q20H IV ; Start 01/11/17 at 10:00 NERI MCKEON Jan 11, 2017 10:21
[2017-01-11] MEDS: PROPOFOL 100 ML IV SCH ×2 (10:38→23:17)
[2017-01-11 11:07] LABS: INR 2.46; PT RATIO 2.1
[2017-01-11] MEDS ORDERED: CASPOFUNGIN 70 MG in SOD CHLORIDE 0.9% 250 ML IVPB ONE (12:00)
[2017-01-11] MEDS ORDERED: LIDOCAINE 1% (MDV) 20 ML INJ SC ONE (12:30)
[2017-01-11] MEDS ORDERED: HEPARIN 1000 UNITS/ML 10 ML INJ CATHETER ONE (12:30)
--- NOTE | 2017-01-11 12:41 | PN ---
DATE: 01/11/2017 SUBJECTIVE DATA: No acute changes. The patient remains intubated, sedated, in no distress. OBJECTIVE DATA: VITAL SIGNS: His temperature is 99.9 this morning. Pulse 112, respirations 30, blood pressure 122/55, saturation 100 on vent. LABORATORY: WBC 27.9, H and H 8.5 and 25.1, platelets 83, neutrophils 85.9. BUN 88, creatinine 5.13, total bilirubin 17.9. MICROBIOLOGY: Endotracheal aspirate growing Mary Lou albicans. DIAGNOSTICS: Chest x-ray this morning revealed no change, indwelling endotracheal tube, NG tube, Carolina, rectal tube, PICC line placed on January 05. ANTIMICROBIALS: The patient is on: 1. Vancomycin. 2. Meropenem. PHYSICAL EXAMINATION: GENERAL: Chronically ill-appearing middle-aged man, who is intubated, sedated, and in no distress. HEENT: Head atraumatic, normocephalic. Sclerae icteric. Buccal mucosa dry. NECK: Supple. LUNGS: Chest rise symmetrical. Breath sounds with bilateral rhonchi. HEART: S1, S2. ABDOMEN: Distended. Bowel sounds hypoactive. EXTREMITIES: With trace edema. SKIN: Positive for jaundice. ASSESSMENT: 1. Severe sepsis with worsening leukocytosis. 2. Hepatorenal syndrome. 3. Acute respiratory failure, status post intubated, possibly aspiration. 4. Alcoholic liver disease. 5. Subcapsular liver collection, possible hematoma versus other. 6. Severe acidosis. 7. Acute alcoholic pancreatitis. 8. Paralytic ileus, with small bowel follow-through study negative. PLAN: The patient remains unchanged. Overall not improving. He is covered with broad-spectrum antibiotics. He is being followed by multiple consultants. Prognosis is guarded. Possibly will require dialysis. Dictated By: Thom Loyd NP /derek/jeison /Document#: [id number]
[2017-01-11] MEDS: ALBUMIN HUMAN 25% 50 ML INJ IV SCH ×2 (12:54→21:20)
[2017-01-11] MEDS: OCTREOTIDE 500 MCG in SOD CHLORIDE 0.9% 49 ML IV SCH (14:36)
--- NOTE | 2017-01-11 16:39 | CONS ---
Date/Time of Note Date/Time of Note DATE: 01/11/17 TIME: 16:34 Assessment/Plan Assessment/Plan Additional Assessment/Plan Additional Assessment/Plan IMPRESSION: 1. Delirium tremens. The patient is now intubated and on propofol 2. Hepatic encephalopathy. Ammonia is 87 partly related to propofol and Ativan 3. Alcoholic liver disease. Patient is on prednisolone 4. Pancreatitis. Amylase has come down . Lipase is down 5. Leukocytosis. WBC count is 27,000 6. Renal insufficiency. Though the urine output is good. 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 Pedal edema and ascites, reducing 8. Thrombocytopenia 9. Ileus, small bowel follow-through was negative 10. Patient's gastroparesis might be related to uremia Plan Bilirubin is improving it has dropped down from 21-16.4 Leukocytosis, WBC count is increased to 30,000. All the cultures are negative most probably is related to alcoholic hepatitis Kidney function is deteriorating now it is 4 patient has developed volume overload manifested in the form of pedal edema and also ascites We will give him low-dose of Lasix 20 mg plan patient will be started on NG tube feeding nephro at 20 cc/h Will recheck CBC before giving packed cell RBC Discussed with the mother and risks of the family member [id number]. Continue all supportive care Will hold off on NG tube feeding Started patient on prednisolone for alcoholic hepatitis Patient is off propofol, case discussed with sleeping car service attendant and diagnostic radiologist Continue with octreotide, albumin and prednisolone. I have discussed the case with primary care physician, case management. Patient needs to be transferred to tertiary care center if no improvement with the prednisolone within the next a few days for a possible liver transplantation. Insurance has to give the letter of agreement to [facility]. Discussing the case management Sydni I learned that insurance company has contract with [facility] and consider transferring patient to [facility]. I have asked the transplantation team to contact me so that I can give better in 4 regarding patient's condition Consultation Date/Type/Reason Admit Date/Time Jan 02, 2017 at 19:30 Type of Consultation: Pulmonary/critical care Referring Provider: BRAEDEN LUNSFORD MD 24 HR Interval Summary Subjective hx not possible: pt non-verbal, pt critical Exam/Review of Systems Vital Signs Vitals Vital Signs Date Time Temp Pulse Resp B/P Pulse Ox O2 Delivery O2 Flow Rate FiO2 01/11/17 16:09 101 27 100 30 01/11/17 15:00 124/63 Mechanical Ventilator 01/11/17 12:00 99.4 01/07/17 13:00 6.0 Intake and Output 01/10/17 01/10/17 01/11/17 15:00 23:00 07:00 Intake Total 752.2 ml 328.8 ml 295.8 ml Output Total 525 ml 905 ml 1390 ml Balance 227.2 ml -576.2 ml -1094.2 ml Exam Respiratory: other (Patient is on vent) Cardiovascular: nl pulses, regular rate and rhythm Gastrointestinal: nl liver, spleen, non-tender, soft Extremities: edema Results Result Diagram: 01/11/17 0400 01/11/17 0400 Results 24 hrs Laboratory Tests Test 01/10/17 17:16 01/10/17 20:26 01/11/17 01:15 01/11/17 04:00 Bedside Glucose 138 143 133 White Blood Count 27.9 H Red Blood Count 2.36 L Hemoglobin 8.5 L Hematocrit 25.1 L Mean Corpuscular Volume 106.4 H Mean Corpuscular Hemoglobin 36.0 H Mean Corpuscular Hemoglobin Concent 33.9 Red Cell Distribution Width 23.9 H Platelet Count 83 L Mean Platelet Volume 12.5 H Neutrophils % 85.9 H Lymphocytes % 4.3 L Monocytes % 6.7 Eosinophils % 0.0 Basophils % 0.2 Nucleated Red Blood Cells % 0.2 H Neutrophils # 23.9 H Lymphocytes # 1.2 Monocytes # 1.9 H Eosinophils # 0.0 Basophils # 0.1 Nucleated Red Blood Cells # 0.1 H Sodium Level 139 Potassium Level 4.2 Chloride Level 111 H Carbon Dioxide Level 17 L Anion Gap 15 Blood Urea Nitrogen 88 H Creatinine 5.13 H Glucose Level 123 Calcium Level 7.3 L Phosphorus Level 7.5 #H Magnesium Level 2.2 Total Bilirubin 17.9 H Direct Bilirubin 16.70 *H Indirect Bilirubin 1.2 H Aspartate Amino Transf (AST/SGOT) 90 H Alanine Aminotransferase (ALT/SGPT) 23 Alkaline Phosphatase 356 H Ammonia 85 H Total Protein 6.5 Albumin 2.3 L Globulin 4.20 H Albumin/Globulin Ratio 0.54 Lipase 487 H Test 01/11/17 05:09 01/11/17 07:29 01/11/17 08:11 01/11/17 10:33 Bedside Glucose 136 126 Lab Scanned Report REFERENCE LAB Prothrombin Time 27.0 H Prothrombin Time Ratio 2.1 INR International Normalized Ratio 2.46 Test 01/11/17 13:03 Bedside Glucose 145 Medications Medications Current Medications Ondansetron HCl (Zofran Inj) 4 mg Q6H PRN IV NAUSEA AND/OR VOMITING Last administered on 01/03/17 14:52; Admin Dose 4 MG; Start 01/02/17 at 23:00 Docusate Sodium (Colace) 100 mg Q12H PRN PO CONSTIPATION; Start 01/02/17 at 23: 00 Rifaximin (Xifaxan) 550 mg BID PO Last administered on 01/11/17 08:32; Admin Dose 550 MG; Start 01/04/17 at 11:00 Metoclopramide HCl (Reglan) 10 mg Q6 IV Last administered on 01/11/17 12:54; Admin Dose 10 MG; Start 01/05/17 at 00:00 Lorazepam (Ativan) 1 mg Q2 PRN IV ANXIETY Last administered on 01/11/17 08:32 ; Admin Dose 1 MG; Start 01/05/17 at 13:00 IV Flush (NS 10 ml) 10 ml PRN PRN IV IV PROTOCOL; Start 01/05/17 at 18:30 Diagnostic Test (Pha) (Accu-Chek) 1 ea Q4 XX Last administered on 01/11/17 13: 04; Admin Dose 1 EA; Start 01/06/17 at 17:00 Diazepam (Valium) 10 mg Q2H PRN IV ANXIETY Last administered on 01/08/17 01:43 ; Admin Dose 10 MG; Start 01/07/17 at 12:00 Pantoprazole (Protonix Iv) 40 mg DAILY IV Last administered on 01/11/17 08:31 ; Admin Dose 40 MG; Start 01/09/17 at 09:00 Lactulose 20 gm 20 gm Q6 NGT Last administered on 01/11/17 12:55; Admin Dose 20 GM; Start 01/08/17 at 18:00 Propofol 100 ml @ 2.217 mls/ hr Q12H IV Last administered on 01/11/17 10:38; Admin Dose 4.434 MLS/HR; Start 01/09/17 at 10:00 Meropenem/Sodium Chloride 50 ml @ 100 mls/hr Q12 IVPB Last administered on 08:31; Admin Dose 100 MLS/HR; Start 01/09/17 at 21:00 Total Parenteral Nutrition (Tpn) 1,000 ml @ 40 mls/hr Q24H IV Last administered on 01/11/17 05:02; Admin Dose 40 MLS/HR; Start 01/09/17 at 18:00 Chlordiazepoxide (Librium) 25 mg DAILY PO Last administered on 01/11/17 08:32 ; Admin Dose 25 MG; Start 01/11/17 at 09:00 Sodium Bicarbonate 650 mg 650 mg Q8 NGT Last administered on 01/11/17 14:40; Admin Dose 650 MG; Start 01/10/17 at 14:00 Octreotide Acetate/Sodium Chloride (Sandostatin/NS) 50 ml @ 2.5 mls/hr Q20H IV Last administered on 01/11/17 14:36; Admin Dose 2.5 MLS/HR; Start 01/11/17 at 10:00 Miscellaneous Information (*Rx Drug Level Order Reminder*) RANDOM VANCOMYCIN LEVEL 9... ONCE ONCE XX ; Start 01/12/17 at 05:00; Stop 01/12/17 at 05:01 Albumin Human (Albumin Human 25%) 100 ml Q8H IV Last administered on 01/11/17 12:54; Admin Dose 100 ML; Start 01/11/17 at 11:00; Stop 01/12/17 at 03:01 Prednisolone 40 mg 40 mg DAILY PO ; Start 01/12/17 at 09:00 Caspofungin/ Sodium Chloride (Cancidas/NS) 250 ml @ 250 mls/hr Q24H IVPB ; Start 01/12/17 at 12:00 LUARA CORDERO MD Jan 11, 2017 16:39
--- NOTE | 2017-01-11 19:28 | PN ---
Date/Time of Note Date/Time of Note DATE: 01/11/17 TIME: 19:26 Assessment/Plan Lines/Catheters IV Catheter Type (from [facility]): PICC Line Minaya in Place (from [facility]): Yes Assessment/Plan Chief Complaint/Hosp Course 1. Paralytic ileus 2nd acute processes. SBFT negative. -Monitor 2. Acute on chronic alcoholic pancreatitis with peripancreatic fluid: amylase/ lipase. Improving -Supportive measures -Judicious fluid management -Trend labs -Encourage cessation 3. Acute GI bleed from gastritis and esophageal varices secondary to alcoholism ; dried blood noted in mouth, no output from ng tube. Stable -Transfuse as needed -Supportive measures: ppi -Correct coagulopathy and platelet dysfunction 4. Anemia secondary to above -As above 5. Leukocytosis, multifactorial with SIRS and steroid therapy, ? infectious -Close monitoring -Antibiotics for bacterial translocation 6. Alcoholic hepatitis with hepatosplenomegaly -Medical and GI optimization 7. Chronic alcohol abuse with Delirium Tremens -Encourage cessation -Sedation/intubation 8. Subcapsular liver collection possible hematoma versus other -Monitor 9. Electrolyte imbalance -Correct with replacements and fluid management 10. Alcohol withdrawal with tachypnea, tachycardia and delirium tremens -supportive -?ciwa protocol 11. NICOLAS -judicious fluids -avoid nephrotoxic meds -will await teams decision on dialysis 12. Pulm edema: ?/ #11 -gentle diuresis -as above Thank you, Problems: Subjective 24 Hr Interval Summary Sedated. Tremors and diaphoresis improved. Rectal tube output. Tachycardia. No fevers. No cough. No vomiting. No pressors. Worsening cr. WBC improving. Request was placed for Farzad but since u/o increasing, request cancelled. Exam/Review of Systems Vital Signs Vitals Vital Signs Date Time Temp Pulse Resp B/P Pulse Ox O2 Delivery O2 Flow Rate FiO2 01/11/17 18:30 100 26 119/53 99 Mechanical Ventilator 01/11/17 17:33 30 01/11/17 16:00 98.9 01/07/17 13:00 6.0 Intake and Output 01/10/17 01/10/17 01/11/17 15:00 23:00 07:00 Intake Total 752.2 ml 328.8 ml 295.8 ml Output Total 525 ml 905 ml 1390 ml Balance 227.2 ml -576.2 ml -1094.2 ml Exam Free Text/Dictation Constitutional: No distress, No oriented. Sedated and intubated. Psych: Sedated and intubated. No nl mood/affect Head: atraumatic, normocephalic, No hematomas, No lacerations Eyes: EOMI, PERRL, icteric ENMT: nl external ears & nose, nl lips & teeth, dried blood oral, ng tube without drainage. No mucosa pink and moist. ETT Neck: non-tender, supple, No jvd Respiratory: crackles, intubated. No congested cough, No labored breathing Cardiovascular: No edema, No regular rate and rhythm: ST Gastrointestinal: soft, non-tender, distended, +rectal tube output. No rebound or guarding Musculoskeletal: nl extremities to inspection, No joint tenderness Extremities: normal pulses, No calf tenderness, No cyanosis Neurological: No nl mental status, No nl speech, No nl strength Skin: rash or lesions (Jaundice), No diaphoresis, No nl turgor : minaya with luis output (decreased) Lymph: nl lymph nodes, nontender Results Result Diagram: 01/11/1739901/11/170 PETER TAMEZ MD Jan 11, 2017 19:28
[2017-01-12] VITALS (50 sets, daily range): BP systolic 112–148; BP diastolic 48–80; PULSE 92–107; RESP 15–31
[2017-01-12] MEDS: ACCU-CHEK XX SCH ×6 (00:47→20:39)
[2017-01-12] MEDS: MEROPENEM 500MG/50 ML (PMX) 50 ML IVPB SCH ×3 (00:47→20:38)
[2017-01-12] MEDS: TPN 1,000 ML IV SCH ×2 (03:48→14:52)
[2017-01-12] MEDS: ALBUMIN HUMAN 25% 50 ML INJ IV SCH (03:48)
[2017-01-12] MEDS: METOCLOPRAMIDE 10 MG INJ IV SCH ×3 (05:08→17:33)
[2017-01-12] MEDS: LACTULOSE 30ML CUP NGT SCH ×3 (05:08→20:38)
[2017-01-12] MEDS: NA BICARBONATE 650 MG TAB NGT SCH (05:09)
[2017-01-12] MEDS: OCTREOTIDE 500 MCG in SOD CHLORIDE 0.9% 49 ML IV SCH (05:09)
[2017-01-12 05:32] LABS: ABNORMAL IP MESSAGE 1; BASOPHILS % 0.1 % (0.0-2.0); HEMATOCRIT 24.4 % (42.0-52.0); HEMOGLOBIN 8.1 g/dl (14.0-18.0); LYMPHOCYTES # 1.3 10^3/ul (0.8-2.9); LYMPHOCYTES % 5.1 % (15.0-51.0); MEAN CORPUSCULAR HEMOGLOBIN 35.5 pg (29.0-33.0); MEAN CORPUSCULAR HGB CONC 33.2 g/dl (32.0-37.0); MEAN PLATELET VOLUME 11.3 fl (7.4-10.4); MONOCYTES % 7.8 % (0.0-11.0); NEUTROPHIL # 21.7 10^3/ul (1.6-7.5); NEUTROPHILS % 83.1 % (39.0-77.0); NUCLEATED RED BLOOD CELLS% 0.1 /100WBC (0.0-0.0); PLATELET COUNT 75 10^3/UL (140-415); POSITIVE DIFF @See below; RED BLOOD COUNT 2.28 10^6/ul (4.70-6.10); RED CELL DISTRIBUTION WIDTH 23.7 % (11.5-14.5)
[2017-01-12 05:57] LABS: ALBUMIN 2.9 g/dl (3.3-4.9); ALBUMIN/GLOBULIN RATIO 0.69; BILIRUBIN,INDIRECT 1.8 mg/dl (0-1.1); CALCIUM 7.5 mg/dl (8.4-10.2); POTASSIUM 3.6 mmol/L (3.5-5.1); TOTAL PROTEIN 7.1 g/dl (6.1-8.1)
[2017-01-12 06:00] LABS: INR 2.42; MAGNESIUM 2.6 mg/dl (1.7-2.5); PHOSPHORUS 8.2 mg/dl (2.5-4.9); PROTIME 26.6 Sec (12.2-14.2); PT RATIO 2.1
[2017-01-12 06:24] LABS: WHITE BLOOD COUNT 26.1 10^3/ul (4.8-10.8)
[2017-01-12 06:29] LABS: CREATININE 4.92 mg/dl (0.61-1.24)
[2017-01-12 06:30] LABS: BILIRUBIN,DIRECT 21.3 mg/dl (0.00-0.20); BILIRUBIN,TOTAL 23.1 mg/dl (0.2-1.3)
--- NOTE | 2017-01-12 08:47 | PN ---
Date/Time of Note Date/Time of Note DATE: 01/12/17 TIME: 08:36 Assessment/Plan VTE Prophylaxis VTE Prophylaxis Intervention: contraindicated VTE Contraindication Reason: bleeding, thrombocytopenia Lines/Catheters IV Catheter Type (from Nrsg): PICC Line Central line still needed: Yes Urinary Cath still in place: Yes Reason Cath still needed: urinary retention Assessment/Plan Chief Complaint/Hosp Course 36 y/o with # Upper GI bleed s/P EGD with gastritis and gastroparesis on Protonix and Reglan # Partial SBO qi # NICOLAS likely Oliguric ATN vs HRS, Cr peaked to 5.13 today trending down to 4.92, BUN 111( still elevated could be also component of prednisolone) # ETOH withdrawal on Ativan/librium # ETOH pancreatitis with Lipase 7690> trending down to 2000> trended down siginificantly # Acute on chronic liver failure likely Etoh abuse with elevated INR, Hyperbilirubenemia, low platelets, # Hepatic encephalopathy with elevated Ammonia levels down to 40 # Depression # Hypokalemia # Non Gap Acidosis likely combination of renal failure and diarrhoea # Leukocytosis could be pancreatitis vs Alcholic hepatitis on Caspofungin( mellisa) +Vancomycin # Respiratory failure s/p Intubation Recs - Since Cr is trending down today with good UOP ( 100-120 CC/HR) will hold off HD today. BUN still lags behing Cr and it could be elevated still because of prednisolone - c/w Albumin challenge q8 and start 1/2 NS at 50 cc/hr to match UOP - Add Bictra 30 ml tid for acidosis - c/w Caspofungin/Meropenam/Vancomycin - c/w Prednisolone 40 and octreotide gtt - Assess neuro status off sedation - INR 2.0 and TB 21: Spoke to Dr Mercer c/w Prednisolone - Spoke to pharmacy to adjust electrolytes in TPN - taper off librium - Monitor UOP very closely - Vent management per Pulmonary - c/w ICU care Problems: Subjective 24 Hr Interval Summary Free Text/Dictation UOP 100-120 cc/hr since midnight Urine is clearing up Ammonia down to 40'S Pt tried to open his eyes on Propofol Bilirubin 21 today Exam/Review of Systems Vital Signs Vitals Vital Signs Date Time Temp Pulse Resp B/P Pulse Ox O2 Delivery O2 Flow Rate FiO2 01/12/17 08:00 99.5 99 26 133/60 100 Mechanical Ventilator 01/12/17 05:16 30 Intake and Output 01/11/17 01/11/17 01/12/17 15:00 23:00 07:00 Intake Total 832.854 ml 249.915 ml 6.077 ml Output Total 800 ml 1195 ml 810 ml Balance 32.854 ml -945.085 ml -803.923 ml Exam Gen:Intubated on propofol, tried to open his eyes HEENT: blood tinged teeth, Scleral icterus Neck:supple CVS: Regular rate and rthym Lungs: decreased breath sounds b/l Abdomen: distended ++, faint bowel sounds Ext: + edema ble minaya Rectal tube with stool output Results Result Diagram: 01/12/17 0510 01/12/17 0510 Results 24 hrs Laboratory Tests Test 01/11/17 10:33 01/11/17 13:03 01/11/17 17:07 01/11/17 21:27 Prothrombin Time 27.0 H Prothrombin Time Ratio 2.1 INR International Normalized Ratio 2.46 Bedside Glucose 145 149 149 Test 01/12/17 00:52 01/12/17 05:10 01/12/17 05:18 01/12/17 06:43 Bedside Glucose 150 152 White Blood Count 26.1 H Red Blood Count 2.28 L Hemoglobin 8.1 L Hematocrit 24.4 L Mean Corpuscular Volume 107.0 H Mean Corpuscular Hemoglobin 35.5 H Mean Corpuscular Hemoglobin Concent 33.2 Red Cell Distribution Width 23.7 H Platelet Count 75 L Mean Platelet Volume 11.3 H Neutrophils % 83.1 H Lymphocytes % 5.1 L Monocytes % 7.8 Eosinophils % 0.0 Basophils % 0.1 Nucleated Red Blood Cells % 0.1 H Neutrophils # 21.7 H Lymphocytes # 1.3 Monocytes # 2.0 H Eosinophils # 0.0 Basophils # 0.0 Nucleated Red Blood Cells # 0.0 Prothrombin Time 26.6 H Prothrombin Time Ratio 2.1 INR International Normalized Ratio 2.42 Sodium Level 145 H Potassium Level 3.6 Chloride Level 115 H Carbon Dioxide Level 16 L Anion Gap 18 H Blood Urea Nitrogen 110 H Creatinine 4.92 H Glucose Level 146 Calcium Level 7.5 L Phosphorus Level 8.2 H Magnesium Level 2.6 H Total Bilirubin 23.1 #H Direct Bilirubin 21.30 *H Indirect Bilirubin 1.8 H Aspartate Amino Transf (AST/SGOT) 102 H Alanine Aminotransferase (ALT/SGPT) 27 Alkaline Phosphatase 344 H Total Protein 7.1 Albumin 2.9 L Globulin 4.20 H Albumin/Globulin Ratio 0.69 Lipase 390 H Random Vancomycin Level 8.1 Ammonia 46 H Test 01/12/17 08:31 Bedside Glucose 140 Medications Medications Current Medications Ondansetron HCl (Zofran Inj) 4 mg Q6H PRN IV NAUSEA AND/OR VOMITING Last administered on 01/03/17 14:52; Admin Dose 4 MG; Start 01/02/17 at 23:00 Docusate Sodium (Colace) 100 mg Q12H PRN PO CONSTIPATION; Start 01/02/17 at 23: 00 Rifaximin (Xifaxan) 550 mg BID PO Last administered on 01/11/17 21:21; Admin Dose 550 MG; Start 01/04/17 at 11:00 Metoclopramide HCl (Reglan) 10 mg Q6 IV Last administered on 01/12/17 05:08; Admin Dose 10 MG; Start 01/05/17 at 00:00 Lorazepam (Ativan) 1 mg Q2 PRN IV ANXIETY Last administered on 01/11/17 08:32 ; Admin Dose 1 MG; Start 01/05/17 at 13:00 IV Flush (NS 10 ml) 10 ml PRN PRN IV IV PROTOCOL; Start 01/05/17 at 18:30 Diagnostic Test (Pha) (Accu-Chek) 1 ea Q4 XX Last administered on 01/12/17 05: 10; Admin Dose 1 EA; Start 01/06/17 at 17:00 Diazepam (Valium) 10 mg Q2H PRN IV ANXIETY Last administered on 01/08/17 01:43 ; Admin Dose 10 MG; Start 01/07/17 at 12:00 Pantoprazole (Protonix Iv) 40 mg DAILY IV Last administered on 01/11/17 08:31 ; Admin Dose 40 MG; Start 01/09/17 at 09:00 Lactulose 20 gm 20 gm Q6 NGT Last administered on 01/12/17 05:08; Admin Dose 20 GM; Start 01/08/17 at 18:00 Propofol 100 ml @ 2.217 mls/ hr Q12H IV Last administered on 01/11/17 23:17; Admin Dose 3.547 MLS/HR; Start 01/09/17 at 10:00 Meropenem/Sodium Chloride 50 ml @ 100 mls/hr Q12 IVPB Last administered on 00:47; Admin Dose 100 MLS/HR; Start 01/09/17 at 21:00 Total Parenteral Nutrition (Tpn) 1,000 ml @ 40 mls/hr Q24H IV Last administered on 01/12/17 03:48; Admin Dose 40 MLS/HR; Start 01/09/17 at 18:00 Chlordiazepoxide (Librium) 25 mg DAILY PO Last administered on 01/11/17 08:32 ; Admin Dose 25 MG; Start 01/11/17 at 09:00 Sodium Bicarbonate 650 mg 650 mg Q8 NGT Last administered on 01/12/17 05:09; Admin Dose 650 MG; Start 01/10/17 at 14:00 Octreotide Acetate/Sodium Chloride (Sandostatin/NS) 50 ml @ 2.5 mls/hr Q20H IV Last administered on 01/12/17 05:09; Admin Dose 2.5 MLS/HR; Start 01/11/17 at 10:00 Prednisolone 40 mg 40 mg DAILY PO ; Start 01/12/17 at 09:00 Caspofungin/ Sodium Chloride (Cancidas/NS) 250 ml @ 250 mls/hr Q24H IVPB ; Start 01/12/17 at 12:00 BRAEDEN LUNSFORD MD Jan 12, 2017 08:47
[2017-01-12] MEDS: CHLORDIAZEPOXIDE 25 MG CAP PO SCH (09:33)
[2017-01-12] MEDS: PANTOPRAZOLE 40 MG INJ IV SCH (09:33)
[2017-01-12] MEDS: RIFAXIMIN 550 MG TAB PO SCH ×2 (09:33→20:38)
[2017-01-12] MEDS: BALSAM PERU/CASTOR OIL 60 GM TUBE TOP SCH ×2 (09:34→20:39)
[2017-01-12] MEDS: CITRIC ACID/NA CITRATE 30 ML CUP NGT SCH ×3 (09:34→20:38)
[2017-01-12] MEDS: ALBUMIN HUMAN 25% 100 ML IV SCH ×2 (09:35→17:32)
[2017-01-12] MEDS: PROPOFOL 100 ML IV SCH ×2 (09:38→20:39)
[2017-01-12] MEDS: predniSOLONE (3 MG/ML PO SYG) PO SCH (09:38)
[2017-01-12] MEDS: SOD CHLORIDE 0.45% 1,000 ML IV SCH (09:42)
[2017-01-12] MEDS ORDERED: VANCOMYCIN 1 GM in NS 250 ML IVPB ONE (10:00)
--- NOTE | 2017-01-12 10:23 | CONS ---
Date/Time of Note Date/Time of Note DATE: 01/12/17 TIME: 10:19 Assessment/Plan Assessment/Plan Additional Assessment/Plan Ventilator setting; AC of 16, tidal volume 500, PEEP of 5, 30% FiO2. Patient is currently on TPN, Sandostatin drip at 25 mics per hour. Propofol 7 mics per milligram per minute. Assessment and recommendations; 1. Patient admitted with acute hepatic encephalopathy due to alcoholic cirrhosis leading to respiratory failure. 2. GI bleed from gastritis with interval resolution. Status post EGD. 3. Hepatorenal syndrome. However renal function is improving. Patient also having increasing urine output now. 4. Acute pancreatitis with interval improvement as well. 5. Leukocytosis likely a steroid response. Possibly from acute hepatitis. 6. Bilateral aspiration pneumonia with significant radiological improvement. 7. Persistent need for continuous sedation currently. Continue current supportive care. Prognosis is guarded. 35 minutes of critical care time was spent evaluating the patient. Consultation Date/Type/Reason Admit Date/Time Jan 02, 2017 at 19:30 Initial Consult Date 01/07/17 Type of Consultation: Pulmonary/critical care Referring Provider: BRAEDEN LUNSFORD MD 24 HR Interval Summary Free Text/Dictation Patient's condition remains critical. Still requiring full ventilator support and intravenous sedation with propofol drip. However has remained hemodynamically stable. No untoward events reported. No further bleeding noted. General exam; young male, orally intubated, sedated, currently in no distress. Exam/Review of Systems Vital Signs Vitals Vital Signs Date Time Temp Pulse Resp B/P Pulse Ox O2 Delivery O2 Flow Rate FiO2 01/12/17 08:00 98 01/12/17 08:00 99.5 26 133/60 100 Mechanical Ventilator 01/12/17 05:16 30 Intake and Output 01/11/17 01/11/17 01/12/17 15:00 23:00 07:00 Intake Total 832.854 ml 249.915 ml 6.077 ml Output Total 800 ml 1195 ml 810 ml Balance 32.854 ml -945.085 ml -803.923 ml Exam HEENT exam; supple neck, no JVD. No lymphadenopathy. Midline trachea. No thyromegaly. Orally intubated. No oral bleeding seen. Pupils are small bilaterally. Patient remains deeply icteric. Chest exam; clear to auscultation. S1-S2 audible, no murmurs. Regular rhythm. Abdomen exam; soft, bowel sounds are sluggish. Abdomen is nondistended. No fluid thrill. No organomegaly felt. Extremity exam; no peripheral edema. STAFF SCIENTIST exam; patient remains sedated. Results Result Diagram: 01/12/17 0510 01/12/17 0510 Results 24 hrs Laboratory Tests Test 01/11/17 10:33 01/11/17 13:03 01/11/17 17:07 01/11/17 21:27 Prothrombin Time 27.0 H Prothrombin Time Ratio 2.1 INR International Normalized Ratio 2.46 Bedside Glucose 145 149 149 Test 01/12/17 00:52 01/12/17 05:10 01/12/17 05:18 01/12/17 06:43 Bedside Glucose 150 152 White Blood Count 26.1 H Red Blood Count 2.28 L Hemoglobin 8.1 L Hematocrit 24.4 L Mean Corpuscular Volume 107.0 H Mean Corpuscular Hemoglobin 35.5 H Mean Corpuscular Hemoglobin Concent 33.2 Red Cell Distribution Width 23.7 H Platelet Count 75 L Mean Platelet Volume 11.3 H Neutrophils % 83.1 H Lymphocytes % 5.1 L Monocytes % 7.8 Eosinophils % 0.0 Basophils % 0.1 Nucleated Red Blood Cells % 0.1 H Neutrophils # 21.7 H Lymphocytes # 1.3 Monocytes # 2.0 H Eosinophils # 0.0 Basophils # 0.0 Nucleated Red Blood Cells # 0.0 Prothrombin Time 26.6 H Prothrombin Time Ratio 2.1 INR International Normalized Ratio 2.42 Sodium Level 145 H Potassium Level 3.6 Chloride Level 115 H Carbon Dioxide Level 16 L Anion Gap 18 H Blood Urea Nitrogen 110 H Creatinine 4.92 H Glucose Level 146 Calcium Level 7.5 L Phosphorus Level 8.2 H Magnesium Level 2.6 H Total Bilirubin 23.1 #H Direct Bilirubin 21.30 *H Indirect Bilirubin 1.8 H Aspartate Amino Transf (AST/SGOT) 102 H Alanine Aminotransferase (ALT/SGPT) 27 Alkaline Phosphatase 344 H Total Protein 7.1 Albumin 2.9 L Globulin 4.20 H Albumin/Globulin Ratio 0.69 Lipase 390 H Random Vancomycin Level 8.1 Ammonia 46 H Test 01/12/17 08:31 Bedside Glucose 140 Medications Medications Current Medications Ondansetron HCl (Zofran Inj) 4 mg Q6H PRN IV NAUSEA AND/OR VOMITING Last administered on 01/03/17 14:52; Admin Dose 4 MG; Start 01/02/17 at 23:00 Docusate Sodium (Colace) 100 mg Q12H PRN PO CONSTIPATION; Start 01/02/17 at 23: 00 Rifaximin (Xifaxan) 550 mg BID PO Last administered on 01/12/17 09:33; Admin Dose 550 MG; Start 01/04/17 at 11:00 Metoclopramide HCl (Reglan) 10 mg Q6 IV Last administered on 01/12/17 05:08; Admin Dose 10 MG; Start 01/05/17 at 00:00 Lorazepam (Ativan) 1 mg Q2 PRN IV ANXIETY Last administered on 01/11/17 08:32 ; Admin Dose 1 MG; Start 01/05/17 at 13:00 IV Flush (NS 10 ml) 10 ml PRN PRN IV IV PROTOCOL; Start 01/05/17 at 18:30 Diagnostic Test (Pha) (Accu-Chek) 1 ea Q4 XX Last administered on 01/12/17 09: 22; Admin Dose 1 EA; Start 01/06/17 at 17:00 Diazepam (Valium) 10 mg Q2H PRN IV ANXIETY Last administered on 01/08/17 01:43 ; Admin Dose 10 MG; Start 01/07/17 at 12:00 Pantoprazole (Protonix Iv) 40 mg DAILY IV Last administered on 01/12/17 09:33 ; Admin Dose 40 MG; Start 01/09/17 at 09:00 Lactulose 20 gm 20 gm Q6 NGT Last administered on 01/12/17 05:08; Admin Dose 20 GM; Start 01/08/17 at 18:00 Propofol 100 ml @ 2.217 mls/ hr Q12H IV Last administered on 01/12/17 09:38; Admin Dose 3.104 MLS/HR; Start 01/09/17 at 10:00 Meropenem/Sodium Chloride 50 ml @ 100 mls/hr Q12 IVPB Last administered on 00:47; Admin Dose 100 MLS/HR; Start 01/09/17 at 21:00 Total Parenteral Nutrition (Tpn) 1,000 ml @ 40 mls/hr Q24H IV Last administered on 01/12/17 03:48; Admin Dose 40 MLS/HR; Start 01/09/17 at 18:00 Chlordiazepoxide 25 mg 25 mg DAILY PO Last administered on 01/12/17 09:33; Admin Dose 25 MG; Start 01/11/17 at 09:00 Octreotide Acetate/Sodium Chloride (Sandostatin/NS) 50 ml @ 2.5 mls/hr Q20H IV Last administered on 01/12/17 05:09; Admin Dose 2.5 MLS/HR; Start 01/11/17 at 10:00 Prednisolone 40 mg 40 mg DAILY PO Last administered on 01/12/17 09:38; Admin Dose 40 MG; Start 01/12/17 at 09:00 Caspofungin 50 mg/ Sodium Chloride 250 ml @ 250 mls/hr Q24H IVPB ; Start at 12:00 Sodium Chloride 1,000 ml @ 50 mls/hr Q20H IV Last administered on 01/12/17 09 :42; Admin Dose 50 MLS/HR; Start 01/12/17 at 09:00 Vancomycin HCl 250 ml @ 125 mls/hr ONCE ONCE IVPB Last administered on 09:57; Admin Dose 125 MLS/HR; Start 01/12/17 at 10:00; Stop 01/12/17 at 11: 59 Albumin Human (Albumin Human 25%) 100 ml @ 100 mls/hr Q8H IV Last administered on 01/12/17 09:35; Admin Dose 100 MLS/HR; Start 01/12/17 at 09:00 ; Stop 01/13/17 at 01:59 Citric Acid/ Sodium Citrate (Bicitra) 30 ml TID NGT Last administered on 09:34; Admin Dose 30 ML; Start 01/12/17 at 09:00 NERI MCKEON Jan 12, 2017 10:23
[2017-01-12 10:38] LABS: AADO2 Arterial 75.6 mmHg (7.0-24.0); Allen Test ACCEPTAB; Arterial Base Excess -6.9 mmol/L (-3.0-3); Arterial COHb 0.3 % (0.0-3.0); Arterial Fraction of Oxyhgb 96.9 % (93.0-99.0); Arterial HCO3 16.7 mmol/L (22.0-26.0); Arterial MetHb 0.2 % (0.0-1.5); Arterial Total Hemglobin 8.8 g/dl (12.0-18.0); MODE VENT - AC
--- NOTE | 2017-01-12 11:20 | CONS ---
Date/Time of Note Date/Time of Note DATE: 01/12/17 TIME: 11:16 Assessment/Plan Assessment/Plan Additional Assessment/Plan Additional Assessment/Plan IMPRESSION: 1. Delirium tremens. The patient is now intubated and on propofol 2. Hepatic encephalopathy. Ammonia is 47 partly related to propofol and Ativan 3. Alcoholic liver disease. Patient is on prednisolone 4. Pancreatitis. Amylase has come down . Lipase is down 5. Leukocytosis. WBC count is coming down slowly 6. Renal insufficiency. Though the urine output is good. Renal function has improved a lot with good urine output. Creatinine is coming down 7. Pedal edema and ascites, reducing 8. Thrombocytopenia 9. Ileus, small bowel follow-through was negative 10. Patient's gastroparesis might be related to uremia Plan Continue all supportive care Will hold off on NG tube feeding, NG tube is clamped Started patient on prednisolone for alcoholic hepatitis will continue with prednisolone Patient is on propofol, case discussed with concrete precast moulder and business development associate. Propofol needs to be reduced and hopefully we can stop it Continue with octreotide, albumin and prednisolone. I have discussed the case with primary care physician, case management. Patient needs to be transferred to tertiary care center if no improvement with the prednisolone within the next a few days for a possible liver transplantation. Insurance has to give the letter of agreement to [facility]. Discussed with the case management Sydni I learned that insurance company has contract with [facility] and consider transferring patient to [facility]. I have asked the transplantation team to contact me so that I can give better information regarding patient's condition I had [id number] discussion with the mother Consultation Date/Type/Reason Admit Date/Time Jan 02, 2017 at 19:30 Type of Consultation: Pulmonary/critical care Referring Provider: BRAEDEN LUNSFORD MD 24 HR Interval Summary Subjective hx not possible: pt non-verbal, pt critical Constitutional: improved Exam/Review of Systems Vital Signs Vitals Vital Signs Date Time Temp Pulse Resp B/P Pulse Ox O2 Delivery O2 Flow Rate FiO2 01/12/17 08:00 98 01/12/17 08:00 99.5 26 133/60 100 Mechanical Ventilator 01/12/17 05:16 30 Intake and Output 01/11/17 01/11/17 01/12/17 15:00 23:00 07:00 Intake Total 832.854 ml 249.915 ml 6.077 ml Output Total 800 ml 1195 ml 810 ml Balance 32.854 ml -945.085 ml -803.923 ml Exam Constitutional: non-verbal Respiratory: other (And is on vent) Cardiovascular: nl pulses, regular rate and rhythm Gastrointestinal: ascites, distended Extremities: edema Neurological: other (Patient is sedated) Results Result Diagram: 01/12/17 0510 01/12/17 0510 Results 24 hrs Laboratory Tests Test 01/11/17 13:03 01/11/17 17:07 01/11/17 21:27 01/12/17 00:52 Bedside Glucose 145 149 149 150 Test 01/12/17 05:10 01/12/17 05:18 01/12/17 06:43 01/12/17 08:31 White Blood Count 26.1 H Red Blood Count 2.28 L Hemoglobin 8.1 L Hematocrit 24.4 L Mean Corpuscular Volume 107.0 H Mean Corpuscular Hemoglobin 35.5 H Mean Corpuscular Hemoglobin Concent 33.2 Red Cell Distribution Width 23.7 H Platelet Count 75 L Mean Platelet Volume 11.3 H Neutrophils % 83.1 H Lymphocytes % 5.1 L Monocytes % 7.8 Eosinophils % 0.0 Basophils % 0.1 Nucleated Red Blood Cells % 0.1 H Neutrophils # 21.7 H Lymphocytes # 1.3 Monocytes # 2.0 H Eosinophils # 0.0 Basophils # 0.0 Nucleated Red Blood Cells # 0.0 Prothrombin Time 26.6 H Prothrombin Time Ratio 2.1 INR International Normalized Ratio 2.42 Sodium Level 145 H Potassium Level 3.6 Chloride Level 115 H Carbon Dioxide Level 16 L Anion Gap 18 H Blood Urea Nitrogen 110 H Creatinine 4.92 H Glucose Level 146 Calcium Level 7.5 L Phosphorus Level 8.2 H Magnesium Level 2.6 H Total Bilirubin 23.1 #H Direct Bilirubin 21.30 *H Indirect Bilirubin 1.8 H Aspartate Amino Transf (AST/SGOT) 102 H Alanine Aminotransferase (ALT/SGPT) 27 Alkaline Phosphatase 344 H Total Protein 7.1 Albumin 2.9 L Globulin 4.20 H Albumin/Globulin Ratio 0.69 Lipase 390 H Random Vancomycin Level 8.1 Bedside Glucose 152 140 Ammonia 46 H Test 01/12/17 10:00 Blood Gas Specimen Source Blood arterial Arterial Blood Date Drawn 01/12/2017 10:10:32 AM Arterial Blood pH (Temp corrected) 7.414 Arterial Blood pCO2 (Temp correct) 26.7 L Arterial Blood pO2 (Temp corrected) 106.9 H Arterial Blood HCO3 16.7 L Arterial Blood Base Excess -6.9 L Arterial Blood Oxygen Saturation 97.4 Prateek Test ACCEPTAB Arterial Blood Gas Puncture Site Right Radial Arterial Blood Carboxyhemoglobin 0.3 Arterial Blood Methemoglobin 0.2 Blood Gas A-a O2 Differential 75.6 H Oxyhemoglobin Percent 96.9 Total Hemoglobin 8.8 L Blood Gas Temperature 37.0 Blood Gas Respiration Rate 16.0 Blood Gas Actual Respiration Rate 24 Blood Gas Modality VENT - AC FiO2 30.0 Blood Gas Tidal Volume 500.0 Blood Gas Low PEEP Setting 5.0 Blood Gas Notified Whom JLD Blood Gas Notified Time 01/12/2017 10:38:07 AM Medications Medications Current Medications Ondansetron HCl (Zofran Inj) 4 mg Q6H PRN IV NAUSEA AND/OR VOMITING Last administered on 01/03/17 14:52; Admin Dose 4 MG; Start 01/02/17 at 23:00 Docusate Sodium (Colace) 100 mg Q12H PRN PO CONSTIPATION; Start 01/02/17 at 23: 00 Rifaximin (Xifaxan) 550 mg BID PO Last administered on 01/12/17 09:33; Admin Dose 550 MG; Start 01/04/17 at 11:00 Metoclopramide HCl (Reglan) 10 mg Q6 IV Last administered on 01/12/17 05:08; Admin Dose 10 MG; Start 01/05/17 at 00:00 Lorazepam (Ativan) 1 mg Q2 PRN IV ANXIETY Last administered on 01/11/17 08:32 ; Admin Dose 1 MG; Start 01/05/17 at 13:00 IV Flush (NS 10 ml) 10 ml PRN PRN IV IV PROTOCOL; Start 01/05/17 at 18:30 Diagnostic Test (Pha) (Accu-Chek) 1 ea Q4 XX Last administered on 01/12/17 09: 22; Admin Dose 1 EA; Start 01/06/17 at 17:00 Diazepam (Valium) 10 mg Q2H PRN IV ANXIETY Last administered on 01/08/17 01:43 ; Admin Dose 10 MG; Start 01/07/17 at 12:00 Pantoprazole 40 mg 40 mg DAILY IV Last administered on 01/12/17 09:33; Admin Dose 40 MG; Start 01/09/17 at 09:00 Propofol 100 ml @ 2.217 mls/ hr Q12H IV Last administered on 01/12/17 09:38; Admin Dose 3.104 MLS/HR; Start 01/09/17 at 10:00 Meropenem/Sodium Chloride 50 ml @ 100 mls/hr Q12 IVPB Last administered on 00:47; Admin Dose 100 MLS/HR; Start 01/09/17 at 21:00 Total Parenteral Nutrition (Tpn) 1,000 ml @ 40 mls/hr Q24H IV Last administered on 01/12/17 03:48; Admin Dose 40 MLS/HR; Start 01/09/17 at 18:00 Chlordiazepoxide 25 mg 25 mg DAILY PO Last administered on 01/12/17 09:33; Admin Dose 25 MG; Start 01/11/17 at 09:00 Octreotide Acetate/Sodium Chloride (Sandostatin/NS) 50 ml @ 2.5 mls/hr Q20H IV Last administered on 01/12/17 05:09; Admin Dose 2.5 MLS/HR; Start 01/11/17 at 10:00 Prednisolone 40 mg 40 mg DAILY PO Last administered on 01/12/17 09:38; Admin Dose 40 MG; Start 01/12/17 at 09:00 Caspofungin 50 mg/ Sodium Chloride 250 ml @ 250 mls/hr Q24H IVPB ; Start at 12:00 Sodium Chloride 1,000 ml @ 50 mls/hr Q20H IV Last administered on 01/12/17 09 :42; Admin Dose 50 MLS/HR; Start 01/12/17 at 09:00 Vancomycin HCl 250 ml @ 125 mls/hr ONCE ONCE IVPB Last administered on 09:57; Admin Dose 125 MLS/HR; Start 01/12/17 at 10:00; Stop 01/12/17 at 11: 59 Albumin Human (Albumin Human 25%) 100 ml @ 100 mls/hr Q8H IV Last administered on 01/12/17 09:35; Admin Dose 100 MLS/HR; Start 01/12/17 at 09:00 ; Stop 01/13/17 at 01:59 Citric Acid/ Sodium Citrate (Bicitra) 30 ml TID NGT Last administered on t 09:34; Admin Dose 30 ML; Start 01/12/17 at 09:00 Lactulose (Enulose) 20 gm TID NGT ; Start 01/12/17 at 13:00 LAURA CORDERO MD Jan 12, 2017 11:20
--- NOTE | 2017-01-12 12:37 | PN ---
DATE: 01/12/2017 SUBJECTIVE: The patient remains unchanged. Afebrile. OBJECTIVE DATA: VITAL SIGNS: T-max of 99.9 yesterday. T current 99.5. He is in no distress. Heart rate 99, respirations 26, blood pressure 113/60, saturation 100 on 30 FiO2. LABORATORY AND DIAGNOSTIC DATA: WBC 26.1, H and H 8.1 and 24.4, platelets 75, neutrophils 83.1, BUN 110, creatinine 4.92, total bilirubin 23.1. MICROBIOLOGY: Endotracheal aspirate grew Mary Lou albicans. INDWELLINGS: Endotracheal tube, NG tube, [place] catheter, PICC line placed on January 05. ANTIMICROBIALS: 1. Vancomycin. 2. Cancidas. 3. Meropenem. PHYSICAL EXAMINATION: GENERAL: This is a ill-appearing middle-aged man who is intubated, sedated, in no distress. HEENT: Head atraumatic, normocephalic. Sclerae anicteric. Buccal mucosa dry. NECK: Supple. CHEST: Rise symmetrical. Breath sounds with bilateral rhonchi. HEART: S1, S2. ABDOMEN: Soft, bowel sounds hypoactive. EXTREMITIES: With trace edema. ASSESSMENT: 1. Sepsis with multisystem organ failure. 2. Acute pancreatitis. 3. Acute respiratory failure, possible aspiration event. 4. Acute renal failure likely hepatorenal syndrome. 5. Subcapsular liver collection per CT of the abdomen, possible hematoma versus other. 6. Paralytic ileus. 7. Acidosis. PLAN: The patient remains unchanged, covered with broad-spectrum antibiotics, lipase is going down. Continue present care. May need to be transferred to tertiary care center if no improvement with steroids for possible liver transplantation as per GI recommendations. Dictated By: Thom Loyd NP /derek/juan /Document#: [id number]
[2017-01-12] MEDS: CASPOFUNGIN 50 MG in SOD CHLORIDE 0.9% 250 ML IVPB SCH (13:20)
--- NOTE | 2017-01-12 15:05 | PN ---
Date/Time of Note Date/Time of Note DATE: 01/12/17 TIME: 14:56 Assessment/Plan Lines/Catheters IV Catheter Type (from [facility], [place]): PICC Line Minaya in Place (from [facility], [place]): Yes Assessment/Plan Chief Complaint/Hosp Course 1. Paralytic ileus 2nd acute processes. SBFT negative. + rectal tube output -Monitor 2. Acute on chronic alcoholic pancreatitis with peripancreatic fluid: amylase/ lipase improving -Supportive measures -Judicious fluid management -Trend labs -Encourage cessation 3. Acute GI bleed from gastritis and esophageal varices secondary to alcoholism ; no output from ng tube. Stable -Transfuse as needed -Supportive measures: ppi -Correct coagulopathy and platelet dysfunction 4. Anemia secondary to above -As above 5. Leukocytosis, multifactorial with SIRS and steroid therapy, ? infectious; on abx therapy -Close monitoring -Antibiotics for bacterial translocation 6. Alcoholic hepatitis with hepatosplenomegaly -Medical and GI optimization 7. Chronic alcohol abuse with Delirium Tremens; no tremors currently- sedated -Encourage cessation -Sedation/intubation 8. Subcapsular liver collection possible hematoma versus other -Monitor 9. Electrolyte imbalance -Correct with replacements and fluid management 10. Alcohol withdrawal with tachypnea, tachycardia and delirium tremens; sedated , improved -supportive 11. NICOLAS: output improving -judicious fluids -avoid nephrotoxic meds -will await teams decision on dialysis 12. Pulm edema: ?/ #11 -gentle diuresis -as above Thank you. Patient seen and examined in collaboration with Dr. Bob Tristan. Problems: Subjective 24 Hr Interval Summary Awaiting possible transfer to tertiary center. Continues in ICU care. Cr and uop improving. Rectal tube with + output. Ammonia improved. Continues on sedation and intubation. Pending tertiary care transfer. No fevers, ngtube output, seizures, rash, change in tele rhythm. Exam/Review of Systems Vital Signs Vitals Vital Signs Date Time Temp Pulse Resp B/P Pulse Ox O2 Delivery O2 Flow Rate FiO2 01/12/17 14:30 98 23 127/71 100 01/12/17 14:00 Mechanical Ventilator 01/12/17 13:54 30 01/12/17 12:00 99.4 Intake and Output 01/11/17 01/11/17 01/12/17 15:00 23:00 07:00 Intake Total 832.854 ml 249.915 ml 6.077 ml Output Total 800 ml 1195 ml 810 ml Balance 32.854 ml -945.085 ml -803.923 ml Exam Free Text/Dictation Constitutional: No distress, No oriented. Sedated and intubated. Psych: Sedated and intubated. No nl mood/affect Head: atraumatic, normocephalic, No hematomas, No lacerations Eyes: EOMI, PERRL, icteric ENMT: nl external ears & nose, nl lips & teeth, ng tube without drainage. Mucosa pink and dry. ETT Neck: non-tender, supple, No jvd Respiratory: diminished, intubated. No congested cough, No labored breathing Cardiovascular: No edema, No regular rate and rhythm: SR Gastrointestinal: soft, non-tender, distended, +rectal tube output. No rebound or guarding Musculoskeletal: nl extremities to inspection, No joint tenderness Extremities: normal pulses, No calf tenderness, No cyanosis Neurological: No nl mental status, No nl speech, No nl strength Skin: rash or lesions (Jaundice), No diaphoresis, No nl turgor : minaya with luis output (improved; increased amount) Lymph: nl lymph nodes, nontender Results Result Diagram: 01/12/17 0510 01/12/17 0510 ELIO GIBBONS NP Jan 12, 2017 15:05
[2017-01-12 16:06] LABS: CALCIUM 7.8 mg/dl (8.4-10.2); POTASSIUM 3.3 mmol/L (3.5-5.1)
[2017-01-12 16:19] LABS: CREATININE 4.76 mg/dl (0.61-1.24)
[2017-01-12] MEDS: POTASSIUM CHLORIDE 50 ML IVPB SCH ×2 (17:33→18:39)
[2017-01-12 23:03] LABS: CALCIUM 8.1 mg/dl (8.4-10.2); POTASSIUM 3.3 mmol/L (3.5-5.1)
[2017-01-12 23:11] LABS: CREATININE 4.43 mg/dl (0.61-1.24)
[2017-01-13] VITALS (43 sets, daily range): BP systolic 105–131; BP diastolic 54–80; PULSE 77–105; RESP 15–27
[2017-01-13] MEDS: METOCLOPRAMIDE 10 MG INJ IV SCH ×4 (00:28→17:46)
[2017-01-13] MEDS: SOD CHLORIDE 0.45% 1,000 ML IV SCH (00:28)
[2017-01-13] MEDS: OCTREOTIDE 500 MCG in SOD CHLORIDE 0.9% 49 ML IV SCH ×2 (00:29→22:37)
[2017-01-13] MEDS: ACCU-CHEK XX SCH ×5 (00:29→20:33)
[2017-01-13] MEDS: ALBUMIN HUMAN 25% 100 ML IV SCH (00:29)
[2017-01-13 06:14] LABS: ABNORMAL IP MESSAGE 1; BASOPHILS % 0.1 % (0.0-2.0); HEMATOCRIT 23.2 % (42.0-52.0); HEMOGLOBIN 7.6 g/dl (14.0-18.0); LYMPHOCYTES # 1.2 10^3/ul (0.8-2.9); LYMPHOCYTES % 5.1 % (15.0-51.0); MEAN CORPUSCULAR HGB CONC 32.8 g/dl (32.0-37.0); MEAN CORPUSCULAR VOLUME 106.9 fl (82.0-101.0); MONOCYTE # 1.6 10^3/ul (0.3-0.9); NEUTROPHIL # 19.1 10^3/ul (1.6-7.5); NEUTROPHILS % 84.1 % (39.0-77.0); NUCLEATED RED BLOOD CELLS% 0.1 /100WBC (0.0-0.0); PLATELET COUNT 69 10^3/UL (140-415); POSITIVE DIFF @See below; RED BLOOD COUNT 2.17 10^6/ul (4.70-6.10); RED CELL DISTRIBUTION WIDTH 23.8 % (11.5-14.5); WHITE BLOOD COUNT 22.7 10^3/ul (4.8-10.8)
[2017-01-13 06:36] LABS: MAGNESIUM 2.6 mg/dl (1.7-2.5); PHOSPHORUS 7.4 mg/dl (2.5-4.9)
[2017-01-13 06:39] LABS: ALBUMIN 3.1 g/dl (3.3-4.9); ALBUMIN/GLOBULIN RATIO 0.86; BILIRUBIN,INDIRECT 2.2 mg/dl (0-1.1); CALCIUM 8.1 mg/dl (8.4-10.2); POTASSIUM 3.2 mmol/L (3.5-5.1); TOTAL PROTEIN 6.7 g/dl (6.1-8.1)
[2017-01-13 06:42] LABS: BILIRUBIN,DIRECT 22.8 mg/dl (0.00-0.20)
[2017-01-13 06:49] LABS: CREATININE 4.25 mg/dl (0.61-1.24)
[2017-01-13] MEDS ORDERED: POTASSIUM CHLORIDE 250 ML IVPB ONE (07:00)
[2017-01-13] MEDS: CITRIC ACID/NA CITRATE 30 ML CUP NGT SCH ×3 (08:28→20:34)
[2017-01-13] MEDS: PANTOPRAZOLE 40 MG INJ IV SCH (08:28)
[2017-01-13] MEDS: LACTULOSE 30ML CUP NGT SCH ×3 (08:28→20:34)
[2017-01-13] MEDS: RIFAXIMIN 550 MG TAB PO SCH ×2 (08:28→20:34)
[2017-01-13] MEDS: BALSAM PERU/CASTOR OIL 60 GM TUBE TOP SCH ×2 (08:29→20:34)
[2017-01-13] MEDS: MEROPENEM 500MG/50 ML (PMX) 50 ML IVPB SCH ×2 (08:29→20:34)
[2017-01-13] MEDS: CHLORDIAZEPOXIDE 25 MG CAP PO SCH (08:36)
[2017-01-13] MEDS ORDERED: DEXTROSE 5% 500 ML IV ONE (09:00)
[2017-01-13] MEDS: predniSOLONE (3 MG/ML PO SYG) PO SCH ×2 (09:00→17:48)
--- NOTE | 2017-01-13 09:13 | PN ---
Date/Time of Note Date/Time of Note DATE: 01/13/17 TIME: 09:09 Assessment/Plan VTE Prophylaxis VTE Prophylaxis Intervention: contraindicated Lines/Catheters IV Catheter Type (from Nrs): PICC Line Central line still needed: Yes Urinary Cath still in place: Yes Reason Cath still needed: urinary retention Assessment/Plan Chief Complaint/Hosp Course 36 y/o with # Upper GI bleed s/P EGD with gastritis and gastroparesis on Protonix and Reglan # Partial SBO qi # NICOLAS likely Oliguric ATN vs HRS, Cr peaked to 5.13 today trending down to 4.92> 4.2 , BUN 111( still elevated could be also component of prednisolone) # ETOH withdrawal on Ativan/librium # ETOH pancreatitis with Lipase 7690> trending down to 1999> trended down siginificantly # Acute on chronic liver failure likely Etoh abuse with elevated INR, Hyperbilirubenemia, low platelets, Bilirubin 22 # Hepatic encephalopathy with elevated Ammonia levels down to 40 # Depression # Hypokalemia # Non Gap Acidosis likely combination of renal failure and diarrhoea # Leukocytosis could be pancreatitis vs Alcholic hepatitis on Caspofungin( mellisa) +Vancomycin # Respiratory failure s/p Intubation Recs - Since Cr is trending down today with good UOP will hold off HD today. BUN still lags behing Cr and it could be elevated still because of prednisolone - Switch fluids to D5W and add FWF - Replete K - recheck H/H - c/w Bictra 30 ml tid for acidosis - c/w Caspofungin/Meropenam/Vancomycin - c/w Prednisolone 40 and octreotide gtt - Assess neuro status off sedation - Spoke to pharmacy to adjust electrolytes in TPN - taper off librium - Monitor UOP very closely - Vent management per Pulmonary - c/w ICU care Problems: Subjective 24 Hr Interval Summary Free Text/Dictation UOP continues to be 80-100 cc/hr Na 151 today K 3.2 Bicarb 17 Cr trending down On Propofol Exam/Review of Systems Vital Signs Vitals Vital Signs Date Time Temp Pulse Resp B/P Pulse Ox O2 Delivery O2 Flow Rate FiO2 01/13/17 08:00 97.8 81 16 113/54 100 Mechanical Ventilator 01/13/17 05:37 30 Intake and Output 01/12/17 01/12/17 01/13/17 15:00 23:00 07:00 Intake Total 1903.647 ml 761.2 ml 1540 ml Output Total 1830 ml 1135 ml 670 ml Balance 73.647 ml -373.8 ml 870 ml Exam Gen:Intubated on propofol, tried to open his eyes HEENT: blood tinged teeth, Scleral icterus Neck:supple CVS: Regular rate and rthym Lungs: decreased breath sounds b/l Abdomen: distended ++, faint bowel sounds Ext: + edema ble minaya Rectal tube with stool output Results Result Diagram: 01/13/17 0500 01/13/17 0500 Results 24 hrs Laboratory Tests Test 01/12/17 10:00 01/12/17 12:25 01/12/17 15:29 01/12/17 17:41 Blood Gas Specimen Source Blood arterial Arterial Blood Date Drawn 01/12/2017 10:10:32 AM Arterial Blood pH (Temp corrected) 7.414 Arterial Blood pCO2 (Temp correct) 26.7 L Arterial Blood pO2 (Temp corrected) 106.9 H Arterial Blood HCO3 16.7 L Arterial Blood Base Excess -6.9 L Arterial Blood Oxygen Saturation 97.4 Prateek Test ACCEPTAB Arterial Blood Gas Puncture Site Right Radial Arterial Blood Carboxyhemoglobin 0.3 Arterial Blood Methemoglobin 0.2 Blood Gas A-a O2 Differential 75.6 H Oxyhemoglobin Percent 96.9 Total Hemoglobin 8.8 L Blood Gas Temperature 37.0 Blood Gas Respiration Rate 16.0 Blood Gas Actual Respiration Rate 24 Blood Gas Modality VENT - AC FiO2 30.0 Blood Gas Tidal Volume 500.0 Blood Gas Low PEEP Setting 5.0 Blood Gas Notified Whom JLD Blood Gas Notified Time 01/12/2017 10:38:07 AM Bedside Glucose 155 183 Sodium Level 147 H Potassium Level 3.3 L Chloride Level 115 H Carbon Dioxide Level 16 L Anion Gap 19 H Blood Urea Nitrogen 112 H Creatinine 4.76 H Glucose Level 192 Calcium Level 7.8 L Test 01/12/17 21:06 01/12/17 21:59 01/13/17 00:42 01/13/17 05:00 Bedside Glucose 155 156 Sodium Level 148 H 151 H Potassium Level 3.3 L 3.2 L Chloride Level 116 H 117 H Carbon Dioxide Level 17 L 17 L Anion Gap 18 H 20 H Blood Urea Nitrogen 115 H 120 H Creatinine 4.43 H 4.25 H Glucose Level 166 150 Calcium Level 8.1 L 8.1 L White Blood Count 22.7 H Red Blood Count 2.17 L Hemoglobin 7.6 L Hematocrit 23.2 L Mean Corpuscular Volume 106.9 H Mean Corpuscular Hemoglobin 35.0 H Mean Corpuscular Hemoglobin Concent 32.8 Red Cell Distribution Width 23.8 H Platelet Count 69 L Mean Platelet Volume 12.0 H Neutrophils % 84.1 H Lymphocytes % 5.1 L Monocytes % 7.0 Eosinophils % 0.0 Basophils % 0.1 Nucleated Red Blood Cells % 0.1 H Neutrophils # 19.1 H Lymphocytes # 1.2 Monocytes # 1.6 H Eosinophils # 0.0 Basophils # 0.0 Nucleated Red Blood Cells # 0.0 Phosphorus Level 7.4 H Magnesium Level 2.6 H Total Bilirubin 25.0 H Direct Bilirubin 22.80 *H Indirect Bilirubin 2.2 H Aspartate Amino Transf (AST/SGOT) 136 H Alanine Aminotransferase (ALT/SGPT) 35 Alkaline Phosphatase 294 H Ammonia 46 H Total Protein 6.7 Albumin 3.1 L Globulin 3.60 H Albumin/Globulin Ratio 0.86 Amylase Level 164 H Lipase 508 H Test 01/13/17 05:09 01/13/17 08:38 Bedside Glucose 152 150 Medications Medications Current Medications Ondansetron HCl (Zofran Inj) 4 mg Q6H PRN IV NAUSEA AND/OR VOMITING Last administered on 01/03/17 14:52; Admin Dose 4 MG; Start 01/02/17 at 23:00 Docusate Sodium (Colace) 100 mg Q12H PRN PO CONSTIPATION; Start 01/02/17 at 23: 00 Rifaximin (Xifaxan) 550 mg BID PO Last administered on 01/13/17 08:28; Admin Dose 550 MG; Start 01/04/17 at 11:00 Metoclopramide HCl (Reglan) 10 mg Q6 IV Last administered on 01/13/17 05:00; Admin Dose 10 MG; Start 01/05/17 at 00:00 Lorazepam (Ativan) 1 mg Q2 PRN IV ANXIETY Last administered on 01/11/17 08:32 ; Admin Dose 1 MG; Start 01/05/17 at 13:00 IV Flush (NS 10 ml) 10 ml PRN PRN IV IV PROTOCOL; Start 01/05/17 at 18:30 Diagnostic Test (Pha) (Accu-Chek) 1 ea Q4 XX Last administered on 01/13/17 04: 59; Admin Dose 1 EA; Start 01/06/17 at 17:00 Diazepam (Valium) 10 mg Q2H PRN IV ANXIETY Last administered on 01/08/17 01:43 ; Admin Dose 10 MG; Start 01/07/17 at 12:00 Pantoprazole 40 mg 40 mg DAILY IV Last administered on 01/13/17 08:28; Admin Dose 40 MG; Start 01/09/17 at 09:00 Propofol 100 ml @ 2.217 mls/ hr Q12H IV Last administered on 01/12/17 09:38; Admin Dose 3.104 MLS/HR; Start 01/09/17 at 10:00 Meropenem/Sodium Chloride 50 ml @ 100 mls/hr Q12 IVPB Last administered on 08:29; Admin Dose 100 MLS/HR; Start 01/09/17 at 21:00 Total Parenteral Nutrition 1,000 ml @ 40 mls/hr Q24H IV Last administered on 14:52; Admin Dose 40 MLS/HR; Start 01/09/17 at 18:00 Octreotide Acetate/Sodium Chloride (Sandostatin/NS) 50 ml @ 2.5 mls/hr Q20H IV Last administered on 01/13/17 00:29; Admin Dose 2.5 MLS/HR; Start 01/11/17 at 10:00 Prednisolone 40 mg 40 mg DAILY PO Last administered on 01/12/17 09:38; Admin Dose 40 MG; Start 01/12/17 at 09:00 Caspofungin/ Sodium Chloride (Cancidas/NS) 250 ml @ 250 mls/hr Q24H IVPB Last administered on 01/12/17 13:20; Admin Dose 250 MLS/HR; Start 01/12/17 at 12:00 Citric Acid/ Sodium Citrate (Bicitra) 30 ml TID NGT Last administered on 08:28; Admin Dose 30 ML; Start 01/12/17 at 09:00 Lactulose 20 gm 20 gm TID NGT Last administered on 01/13/17 08:28; Admin Dose 20 GM; Start 01/12/17 at 13:00 Potassium Chloride (KCl 40 MEQ/250 ML NS) 250 ml @ 62.5 mls/hr ONCE ONCE IVPB Last administered on 01/13/17t 08:14; Admin Dose 62.5 MLS/HR; Start 01/13/17 at 07:00; Stop 01/13/17 at 10:59 Miscellaneous Information IF POSSIBLE, DILUTE ... Q8H XX ; Start 01/13/17 at 09: 00 Dextrose (D5W) 1,000 ml @ 70 mls/hr [id number] IV ; Start 01/13/17 at 09:00; Status BRAEDEN TAM MD Jan 13, 2017 09:13
[2017-01-13] MEDS ORDERED: [UNRECOGNIZED DRUG - REMARK] XX SCH (09:30)
--- NOTE | 2017-01-13 09:45 | CONS ---
Date/Time of Note Date/Time of Note DATE: 01/13/17 TIME: 09:41 Assessment/Plan Assessment/Plan Additional Assessment/Plan Data setting; AC of 16, tidal volume 500, PEEP of 5, 30% FiO2. Patient currently on Sandostatin drip at 25 mics per hour, TPN, propofol 80 mics per kilogram per minute. Assessment and recommendations; 1. Patient admitted with severe hepatic encephalopathy due to alcoholic liver disease. 2. Bilateral pneumonia with significant clinical improvement. 3. Upper GI bleed status post endoscopy. 4. Anemia and thrombus cytopenia. 5. Hypernatremia. 6. Hepatorenal syndrome. With decrease in serum creatinine. Patient also having fair urine output. Continue current treatment. IV fluids have been adjusted by the primary care team. Patient has been some free water via G-tube. Prognosis is guarded. Patient also awaiting transfer to tertiary care center. Consultation Date/Type/Reason Admit Date/Time Jan 02, 2017 at 19:30 Initial Consult Date 01/07/17 Type of Consultation: Pulmonary/critical care Referring Provider: BRAEDEN LUNSFORD MD 24 HR Interval Summary Free Text/Dictation Patient's condition remains critical. Patient however has remained hemodynamically stable. No overt bleeding noted. General exam; young male, orally intubated, sedated, currently in no distress. Exam/Review of Systems Vital Signs Vitals Vital Signs Date Time Temp Pulse Resp B/P Pulse Ox O2 Delivery O2 Flow Rate FiO2 01/13/17 08:00 97.8 81 16 113/54 100 Mechanical Ventilator 01/13/17 05:37 30 Intake and Output 01/12/17 01/12/17 01/13/17 15:00 23:00 07:00 Intake Total 1903.647 ml 761.2 ml 1540 ml Output Total 1830 ml 1135 ml 745 ml Balance 73.647 ml -373.8 ml 795 ml Exam HEENT exam; supple neck, no JVD. No lymphadenopathy. Midline trachea. No thyromegaly. Orally intubated. Patient has carious teeth. No oral bleeding seen. Patient remains strongly icteric. Chest exam; diminished but clear breath sounds. S1-S2 audible, no murmurs. Regular rhythm. Abdomen exam; soft, non-distended. Bowel sounds are sluggish. No organomegaly. Extremity exam; no peripheral edema. 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 Results Result Diagram: 01/13/17 0500 01/13/17 0500 Results 24 hrs Laboratory Tests Test 01/12/17 10:00 01/12/17 12:25 01/12/17 15:29 01/12/17 17:41 Blood Gas Specimen Source Blood arterial Arterial Blood Date Drawn 01/12/2017 10:10:32 AM Arterial Blood pH (Temp corrected) 7.414 Arterial Blood pCO2 (Temp correct) 26.7 L Arterial Blood pO2 (Temp corrected) 106.9 H Arterial Blood HCO3 16.7 L Arterial Blood Base Excess -6.9 L Arterial Blood Oxygen Saturation 97.4 Prateek Test ACCEPTAB Arterial Blood Gas Puncture Site Right Radial Arterial Blood Carboxyhemoglobin 0.3 Arterial Blood Methemoglobin 0.2 Blood Gas A-a O2 Differential 75.6 H Oxyhemoglobin Percent 96.9 Total Hemoglobin 8.8 L Blood Gas Temperature 37.0 Blood Gas Respiration Rate 16.0 Blood Gas Actual Respiration Rate 24 Blood Gas Modality VENT - AC FiO2 30.0 Blood Gas Tidal Volume 500.0 Blood Gas Low PEEP Setting 5.0 Blood Gas Notified Whom JLD Blood Gas Notified Time 01/12/2017 10:38:07 AM Bedside Glucose 155 183 Sodium Level 147 H Potassium Level 3.3 L Chloride Level 115 H Carbon Dioxide Level 16 L Anion Gap 19 H Blood Urea Nitrogen 112 H Creatinine 4.76 H Glucose Level 192 Calcium Level 7.8 L Test 01/12/17 21:06 01/12/17 21:59 01/13/17 00:42 01/13/17 05:00 Bedside Glucose 155 156 Sodium Level 148 H 151 H Potassium Level 3.3 L 3.2 L Chloride Level 116 H 117 H Carbon Dioxide Level 17 L 17 L Anion Gap 18 H 20 H Blood Urea Nitrogen 115 H 120 H Creatinine 4.43 H 4.25 H Glucose Level 166 150 Calcium Level 8.1 L 8.1 L White Blood Count 22.7 H Red Blood Count 2.17 L Hemoglobin 7.6 L Hematocrit 23.2 L Mean Corpuscular Volume 106.9 H Mean Corpuscular Hemoglobin 35.0 H Mean Corpuscular Hemoglobin Concent 32.8 Red Cell Distribution Width 23.8 H Platelet Count 69 L Mean Platelet Volume 12.0 H Neutrophils % 84.1 H Lymphocytes % 5.1 L Monocytes % 7.0 Eosinophils % 0.0 Basophils % 0.1 Nucleated Red Blood Cells % 0.1 H Neutrophils # 19.1 H Lymphocytes # 1.2 Monocytes # 1.6 H Eosinophils # 0.0 Basophils # 0.0 Nucleated Red Blood Cells # 0.0 Phosphorus Level 7.4 H Magnesium Level 2.6 H Total Bilirubin 25.0 H Direct Bilirubin 22.80 *H Indirect Bilirubin 2.2 H Aspartate Amino Transf (AST/SGOT) 136 H Alanine Aminotransferase (ALT/SGPT) 35 Alkaline Phosphatase 294 H Ammonia 46 H Total Protein 6.7 Albumin 3.1 L Globulin 3.60 H Albumin/Globulin Ratio 0.86 Amylase Level 164 H Lipase 508 H Test 01/13/17 05:09 01/13/17 08:38 Bedside Glucose 152 150 Medications Medications Current Medications Ondansetron HCl (Zofran Inj) 4 mg Q6H PRN IV NAUSEA AND/OR VOMITING Last administered on 01/03/17 14:52; Admin Dose 4 MG; Start 01/02/17 at 23:00 Docusate Sodium (Colace) 100 mg Q12H PRN PO CONSTIPATION; Start 01/02/17 at 23: 00 Rifaximin (Xifaxan) 550 mg BID PO Last administered on 01/13/17 08:28; Admin Dose 550 MG; Start 01/04/17 at 11:00 Metoclopramide HCl (Reglan) 10 mg Q6 IV Last administered on 01/13/17 05:00; Admin Dose 10 MG; Start 01/05/17 at 00:00 Lorazepam (Ativan) 1 mg Q2 PRN IV ANXIETY Last administered on 01/11/17 08:32 ; Admin Dose 1 MG; Start 01/05/17 at 13:00 IV Flush (NS 10 ml) 10 ml PRN PRN IV IV PROTOCOL; Start 01/05/17 at 18:30 Diagnostic Test (Pha) (Accu-Chek) 1 ea Q4 XX Last administered on 01/13/17 04: 59; Admin Dose 1 EA; Start 01/06/17 at 17:00 Diazepam (Valium) 10 mg Q2H PRN IV ANXIETY Last administered on 01/08/17 01:43 ; Admin Dose 10 MG; Start 01/07/17 at 12:00 Pantoprazole 40 mg 40 mg DAILY IV Last administered on 01/13/17 08:28; Admin Dose 40 MG; Start 01/09/17 at 09:00 Propofol 100 ml @ 2.217 mls/ hr Q12H IV Last administered on 01/12/17 09:38; Admin Dose 3.104 MLS/HR; Start 01/09/17 at 10:00 Meropenem/Sodium Chloride 50 ml @ 100 mls/hr Q12 IVPB Last administered on 08:29; Admin Dose 100 MLS/HR; Start 01/09/17 at 21:00 Total Parenteral Nutrition 1,000 ml @ 40 mls/hr Q24H IV Last administered on 14:52; Admin Dose 40 MLS/HR; Start 01/09/17 at 18:00 Octreotide Acetate/Sodium Chloride (Sandostatin/NS) 50 ml @ 2.5 mls/hr Q20H IV Last administered on 01/13/17 00:29; Admin Dose 2.5 MLS/HR; Start 01/11/17 at 10:00 Prednisolone 40 mg 40 mg DAILY PO Last administered on 01/12/17 09:38; Admin Dose 40 MG; Start 01/12/17 at 09:00 Caspofungin/ Sodium Chloride (Cancidas/NS) 250 ml @ 250 mls/hr Q24H IVPB Last administered on 01/12/17 13:20; Admin Dose 250 MLS/HR; Start 01/12/17 at 12:00 Citric Acid/ Sodium Citrate (Bicitra) 30 ml TID NGT Last administered on 08:28; Admin Dose 30 ML; Start 01/12/17 at 09:00 Lactulose 20 gm 20 gm TID NGT Last administered on 01/13/17 08:28; Admin Dose 20 GM; Start 01/12/17 at 13:00 Potassium Chloride (KCl 40 MEQ/250 ML NS) 250 ml @ 62.5 mls/hr ONCE ONCE IVPB Last administered on 01/13/17 08:14; Admin Dose 62.5 MLS/HR; Start 01/13/17 at 07:00; Stop 01/13/17 at 10:59 NERI MCKEON Jan 13, 2017 09:45
[2017-01-13] MEDS: PROPOFOL 100 ML IV SCH ×2 (10:50→22:37)
[2017-01-13 11:30] LABS: HEMATOCRIT 24.1 % (42.0-52.0); HEMOGLOBIN 7.6 g/dl (14.0-18.0)
[2017-01-13] MEDS: TPN 1,000 ML IV SCH (12:29)
[2017-01-13] MEDS: CASPOFUNGIN 50 MG in SOD CHLORIDE 0.9% 250 ML IVPB SCH (12:43)
[2017-01-13 14:53] LABS: ADD UMIC YES; UR ASCORBIC ACID NEGATIVE (NEGATIVE); UR BACTERIA FEW /HPF (NONE SEEN); UR BILIRUBIN (Dip) 2+ mg/dL (NEGATIVE); UR BLOOD (Dip) 1+ mg/dL (NEGATIVE); UR CLARITY CLEAR (CLEAR); UR COLOR AMBER (YELLOW); UR GLUCOSE (Dip) NEGATIVE (NEGATIVE); UR KETONES (Dip) NEGATIVE (NEGATIVE); UR LEUKOCYTE ESTERASE (Dip) NEGATIVE Leu/ul (NEGATIVE); UR MUCUS FEW /HPF (NONE SEEN); UR NITRITE (Dip) NEGATIVE (NEGATIVE); UR RBC 2 /HPF (0-5); UR SPECIFIC GRAVITY (Dip) 1.015 (1.003-1.030); UR TOTAL PROTEIN (Dip) 1+ mg/dl (NEGATIVE); UR UROBILINOGEN (Dip) 1+ mg/dL (NEGATIVE)
--- NOTE | 2017-01-13 17:17 | PN ---
Date/Time of Note Date/Time of Note DATE: 01/13/17 TIME: 17:14 Assessment/Plan Lines/Catheters IV Catheter Type (from [facility]): PICC Line Minaya in Place (from [facility]): Yes Assessment/Plan Chief Complaint/Hosp Course 1. Paralytic ileus 2nd acute processes. SBFT negative. + rectal tube output -Monitor 2. Acute on chronic alcoholic pancreatitis with peripancreatic fluid: amylase/ lipase improving -Supportive measures -Judicious fluid management -Trend labs -Encourage cessation 3. Acute GI bleed from gastritis and esophageal varices secondary to alcoholism ; no output from ng tube. Stable -Transfuse as needed -Supportive measures: ppi -Correct coagulopathy and platelet dysfunction 4. Anemia secondary to above -As above 5. Leukocytosis, multifactorial with SIRS and steroid therapy, ? infectious; on abx therapy -Close monitoring -Antibiotics for bacterial translocation 6. Alcoholic hepatitis with hepatosplenomegaly -Medical and GI optimization 7. Chronic alcohol abuse with Delirium Tremens; no tremors currently- sedated -Encourage cessation -Sedation/intubation 8. Subcapsular liver collection possible hematoma versus other -Monitor 9. Electrolyte imbalance -Correct with replacements and fluid management 10. Alcohol withdrawal with tachypnea, tachycardia and delirium tremens; sedated , improved -supportive 11. NICOLAS: output improving. Cr slowly improving. -judicious fluids -avoid nephrotoxic meds -will await teams decision on dialysis 12. Pulm edema: ?/ #11 -gentle diuresis -as above Thank you, Problems: Subjective 24 Hr Interval Summary ? Transfer to tertiary center. Cr and uop improving. Rectal tube with + output. Ammonia improved. Continues on sedation and intubation. No fevers, seizures, rash, cough, vomiting, change in rhythm. Exam/Review of Systems Vital Signs Vitals Vital Signs Date Time Temp Pulse Resp B/P Pulse Ox O2 Delivery O2 Flow Rate FiO2 01/13/17 16:00 83 01/13/17 15:30 21 100 30 01/13/17 13:30 120/72 Mechanical Ventilator 01/13/17 11:00 98.0 Intake and Output 01/12/17 01/12/17 01/13/17 15:00 23:00 07:00 Intake Total 1903.647 ml 761.2 ml 1586.0 ml Output Total 1830 ml 1135 ml 745 ml Balance 73.647 ml -373.8 ml 841.0 ml Exam Free Text/Dictation Constitutional: No distress, No oriented. Sedated and intubated. Psych: Sedated and intubated. No nl mood/affect Head: atraumatic, normocephalic, No hematomas, No lacerations Eyes: EOMI, PERRL, icteric ENMT: nl external ears & nose, nl lips & teeth, ng tube without drainage. Mucosa pink and dry. ETT Neck: non-tender, supple, No jvd Respiratory: diminished, intubated. No congested cough, No labored breathing Cardiovascular: No edema, No regular rate and rhythm: SR Gastrointestinal: soft, non-tender, distended, +rectal tube output. No rebound or guarding Musculoskeletal: nl extremities to inspection, No joint tenderness Extremities: normal pulses, No calf tenderness, No cyanosis Neurological: No nl mental status, No nl speech, No nl strength Skin: rash or lesions (Jaundice), No diaphoresis, No nl turgor : minaya with luis output (improved; increased amount) Lymph: nl lymph nodes, nontender Results Result Diagram: 01/13/17 1052 01/13/17 0500 PETER TAMEZ MD Jan 13, 2017 17:17
[2017-01-13 17:22] LABS: CALCIUM 8.7 mg/dl (8.4-10.2); CREATININE 3.78 mg/dl (0.61-1.24); POTASSIUM 4.1 mmol/L (3.5-5.1)
[2017-01-13] MEDS: NYSTATIN SUSP 5 ML CUP PO SCH ×2 (18:31→20:34)
[2017-01-13] MEDS: DEXTROSE 5% 1,000 ML IV SCH (19:54)
--- NOTE | 2017-01-13 20:35 | CONS ---
Date/Time of Note Date/Time of Note DATE: 01/13/17 TIME: 20:33 Assessment/Plan Assessment/Plan Additional Assessment/Plan Additional Assessment/Plan IMPRESSION: 1. Delirium tremens. The patient is now intubated and on propofol 2. Hepatic encephalopathy. Ammonia is 47 partly related to propofol and Ativan 3. Alcoholic liver disease. Patient is on prednisolone 4. Pancreatitis. Amylase has come down . Lipase is down 5. Leukocytosis. WBC count is coming down slowly 6. Renal insufficiency. Though the urine output is good. Renal function has improved a lot with good urine output. Creatinine is coming down. Now it is 3.8 7. Pedal edema and ascites, reducing 8. Thrombocytopenia 9. Ileus, small bowel follow-through was negative 10. Patient's gastroparesis might be related to uremia Plan Continue all supportive care Will hold off on NG tube feeding, NG tube is clamped Started patient on prednisolone for alcoholic hepatitis will continue with prednisolone Patient is on propofol, case discussed with air drier and waste examiner. Propofol needs to be reduced and hopefully we can stop it Continue with octreotide, albumin and prednisolone. I have discussed the case with primary care physician, case management. Patient needs to be transferred to tertiary care center if no improvement with the prednisolone within the next a few days for a possible liver transplantation. Insurance has to give the letter of agreement to [facility]. Discussed with the case management Sydni I learned that insurance company has contract with [facility] and consider transferring patient to [facility]. I have asked the transplantation team to contact me so that I can give better information regarding patient's condition I had [id number] discussion with the mother Prefer to stop or propofol if possible Consultation Date/Type/Reason Admit Date/Time Jan 02, 2017 at 19:30 Type of Consultation: Pulmonary/critical care Referring Provider: BRAEDEN LUNSFORD MD 24 HR Interval Summary Subjective hx not possible: pt non-verbal, pt critical Exam/Review of Systems Vital Signs Vitals Vital Signs Date Time Temp Pulse Resp B/P Pulse Ox O2 Delivery O2 Flow Rate FiO2 01/13/17 19:46 91 21 97 30 01/13/17 18:30 129/73 01/13/17 18:00 Mechanical Ventilator 01/13/17 11:00 98.0 Intake and Output 01/12/17 01/12/17 01/13/17 15:00 23:00 07:00 Intake Total 1903.647 ml 761.2 ml 1586.0 ml Output Total 1830 ml 1135 ml 745 ml Balance 73.647 ml -373.8 ml 841.0 ml Exam Constitutional: alert, oriented, well developed Psych: nl mood/affect, no complaints Head: atraumatic, normocephalic Eyes: EOMI, PERRL, nl conjunctiva, nl lids, nl sclera ENMT: nl external ears & nose, nl lips & teeth, nl nasal mucosa & septum Neck: non-tender, supple Respiratory: clear to auscultation, normal air movement Cardiovascular: nl pulses, regular rate and rhythm Gastrointestinal: nl liver, spleen, non-tender, soft Musculoskeletal: nl extremities to inspection, nl gait and stance Extremities: normal pulses Neurological: [employer] II-XII intact, nl mental status, nl speech, nl strength Skin: nl turgor, No rash or lesions Lymph: nl lymph nodes Results Result Diagram: 01/13/17 1052 01/13/17 1615 Results 24 hrs Laboratory Tests Test 01/12/17 21:06 01/12/17 21:59 01/13/17 00:42 01/13/17 05:00 Bedside Glucose 155 156 Sodium Level 148 H 151 H Potassium Level 3.3 L 3.2 L Chloride Level 116 H 117 H Carbon Dioxide Level 17 L 17 L Anion Gap 18 H 20 H Blood Urea Nitrogen 115 H 120 H Creatinine 4.43 H 4.25 H Glucose Level 166 150 Calcium Level 8.1 L 8.1 L White Blood Count 22.7 H Red Blood Count 2.17 L Hemoglobin 7.6 L Hematocrit 23.2 L Mean Corpuscular Volume 106.9 H Mean Corpuscular Hemoglobin 35.0 H Mean Corpuscular Hemoglobin Concent 32.8 Red Cell Distribution Width 23.8 H Platelet Count 69 L Mean Platelet Volume 12.0 H Neutrophils % 84.1 H Lymphocytes % 5.1 L Monocytes % 7.0 Eosinophils % 0.0 Basophils % 0.1 Nucleated Red Blood Cells % 0.1 H Neutrophils # 19.1 H Lymphocytes # 1.2 Monocytes # 1.6 H Eosinophils # 0.0 Basophils # 0.0 Nucleated Red Blood Cells # 0.0 Phosphorus Level 7.4 H Magnesium Level 2.6 H Total Bilirubin 25.0 H Direct Bilirubin 22.80 *H Indirect Bilirubin 2.2 H Aspartate Amino Transf (AST/SGOT) 136 H Alanine Aminotransferase (ALT/SGPT) 35 Alkaline Phosphatase 294 H Ammonia 46 H Total Protein 6.7 Albumin 3.1 L Globulin 3.60 H Albumin/Globulin Ratio 0.86 Amylase Level 164 H Lipase 508 H Test 01/13/17 05:09 01/13/17 08:38 01/13/17 10:52 01/13/17 11:40 Bedside Glucose 152 150 Hemoglobin 7.6 L Hematocrit 24.1 L Urine Color ANITRA Urine Clarity CLEAR Urine pH 6.0 Urine Specific [place] 1.015 Urine Ketones NEGATIVE Urine Nitrite NEGATIVE Urine Bilirubin 2+ H Urine Urobilinogen 1+ H Urine Leukocyte Esterase NEGATIVE Urine Microscopic RBC 2 Urine Microscopic WBC 2 Urine Bacteria FEW A Urine Mucus FEW A Urine Hemoglobin 1+ H Urine Glucose NEGATIVE Urine Total Protein 1+ H Test 01/13/17 12:37 01/13/17 16:15 01/13/17 17:50 Bedside Glucose 143 132 Sodium Level 150 H Potassium Level 4.1 Chloride Level 118 H Carbon Dioxide Level 18 L Anion Gap 18 H Blood Urea Nitrogen 116 H Creatinine 3.78 H Glucose Level 132 Calcium Level 8.7 Medications Medications Current Medications Ondansetron HCl (Zofran Inj) 4 mg Q6H PRN IV NAUSEA AND/OR VOMITING Last administered on 01/03/17 14:52; Admin Dose 4 MG; Start 01/02/17 at 23:00 Docusate Sodium (Colace) 100 mg Q12H PRN PO CONSTIPATION; Start 01/02/17 at 23: 00 Rifaximin (Xifaxan) 550 mg BID PO Last administered on 01/13/17 08:28; Admin Dose 550 MG; Start 01/04/17 at 11:00 Metoclopramide HCl (Reglan) 10 mg Q6 IV Last administered on 01/13/17 17:46; Admin Dose 10 MG; Start 01/05/17 at 00:00 Lorazepam (Ativan) 1 mg Q2 PRN IV ANXIETY Last administered on 01/11/17 08:32 ; Admin Dose 1 MG; Start 01/05/17 at 13:00 IV Flush (NS 10 ml) 10 ml PRN PRN IV IV PROTOCOL; Start 01/05/17 at 18:30 Diagnostic Test (Pha) (Accu-Chek) 1 ea Q4 XX Last administered on 01/13/17 04: 59; Admin Dose 1 EA; Start 01/06/17 at 17:00 Diazepam (Valium) 10 mg Q2H PRN IV ANXIETY Last administered on 01/08/17 01:43 ; Admin Dose 10 MG; Start 01/07/17 at 12:00 Pantoprazole 40 mg 40 mg DAILY IV Last administered on 01/13/17 08:28; Admin Dose 40 MG; Start 01/09/17 at 09:00 Propofol 100 ml @ 2.217 mls/ hr Q12H IV Last administered on 01/13/17 10:50; Admin Dose 4.434 MLS/HR; Start 01/09/17 at 10:00 Meropenem/Sodium Chloride 50 ml @ 100 mls/hr Q12 IVPB Last administered on 08:29; Admin Dose 100 MLS/HR; Start 01/09/17 at 21:00 Total Parenteral Nutrition 1,000 ml @ 40 mls/hr Q24H IV Last administered on 12:29; Admin Dose 40 MLS/HR; Start 01/09/17 at 18:00 Octreotide Acetate/Sodium Chloride (Sandostatin/NS) 50 ml @ 2.5 mls/hr Q20H IV Last administered on 01/13/17 00:29; Admin Dose 2.5 MLS/HR; Start 01/11/17 at 10:00 Prednisolone (Prelone (Ped)) 40 mg DAILY PO Last administered on 01/13/17 17: 48; Admin Dose 40 MG; Start 01/12/17 at 09:00 Citric Acid/ Sodium Citrate (Bicitra) 30 ml TID NGT Last administered on 12:42; Admin Dose 30 ML; Start 01/12/17 at 09:00 Lactulose 20 gm 20 gm TID NGT Last administered on 01/13/17 12:42; Admin Dose 20 GM; Start 01/12/17 at 13:00 Vancomycin HCl/ Dextrose (Vancocin/D5W) 250 ml @ 83.333 mls/ hr Q48H IVPB ; Start 01/14/17 at 10:00 Nystatin 5 ml 5 ml QID PO Last administered on 01/13/17 18:31; Admin Dose 5 ML ; Start 01/13/17 at 17:00 Dextrose (D5W) 1,000 ml @ 75 mls/hr [id number] IV Last administered on 01/13/17t 19:54; Admin Dose 75 MLS/HR; Start 01/13/17 at 19:30 LAURA CORDERO MD Jan 13, 2017 20:35
[2017-01-14] VITALS (39 sets, daily range): BP systolic 116–139; BP diastolic 63–97; PULSE 77–108; RESP 17–29
[2017-01-14] MEDS: ACCU-CHEK XX SCH ×6 (01:00→21:00)
[2017-01-14] MEDS: METOCLOPRAMIDE 10 MG INJ IV SCH ×4 (01:20→17:01)
[2017-01-14 05:28] LABS: ABNORMAL IP MESSAGE 1; BASOPHILS % 0.2 % (0.0-2.0); HEMATOCRIT 24.2 % (42.0-52.0); HEMOGLOBIN 7.9 g/dl (14.0-18.0); LYMPHOCYTES # 0.6 10^3/ul (0.8-2.9); LYMPHOCYTES % 2.5 % (15.0-51.0); MEAN CORPUSCULAR HEMOGLOBIN 35.4 pg (29.0-33.0); MEAN CORPUSCULAR HGB CONC 32.6 g/dl (32.0-37.0); MEAN CORPUSCULAR VOLUME 108.5 fl (82.0-101.0); MEAN PLATELET VOLUME 11.9 fl (7.4-10.4); MONOCYTE # 1.1 10^3/ul (0.3-0.9); MONOCYTES % 4.8 % (0.0-11.0); NEUTROPHIL # 19.7 10^3/ul (1.6-7.5); NEUTROPHILS % 88.1 % (39.0-77.0); PLATELET COUNT 75 10^3/UL (140-415); POSITIVE DIFF @See below; RED BLOOD COUNT 2.23 10^6/ul (4.70-6.10); RED CELL DISTRIBUTION WIDTH 23.8 % (11.5-14.5); WHITE BLOOD COUNT 22.3 10^3/ul (4.8-10.8)
[2017-01-14 05:45] LABS: INR 2.35
[2017-01-14 06:05] LABS: MAGNESIUM 2.4 mg/dl (1.7-2.5)
[2017-01-14 06:06] LABS: ALBUMIN 2.8 g/dl (3.3-4.9); ALBUMIN/GLOBULIN RATIO 0.8; BILIRUBIN,INDIRECT 2.1 mg/dl (0-1.1); BILIRUBIN,TOTAL 24.1 mg/dl (0.2-1.3); CALCIUM 8.6 mg/dl (8.4-10.2); CREATININE 3.36 mg/dl (0.61-1.24); POTASSIUM 4.3 mmol/L (3.5-5.1); TOTAL PROTEIN 6.3 g/dl (6.1-8.1)
[2017-01-14] MEDS: DEXTROSE 5% 1,000 ML IV SCH (08:16)
[2017-01-14] MEDS: RIFAXIMIN 550 MG TAB PO SCH ×2 (08:49→21:01)
[2017-01-14] MEDS: BALSAM PERU/CASTOR OIL 60 GM TUBE TOP SCH ×2 (08:49→21:01)
[2017-01-14] MEDS: MEROPENEM 500MG/50 ML (PMX) 50 ML IVPB SCH ×2 (08:49→21:01)
[2017-01-14] MEDS: PANTOPRAZOLE 40 MG INJ IV SCH (08:49)
[2017-01-14] MEDS: CITRIC ACID/NA CITRATE 30 ML CUP NGT SCH ×3 (08:49→21:01)
[2017-01-14] MEDS: LACTULOSE 30ML CUP NGT SCH ×3 (08:49→21:01)
[2017-01-14] MEDS: NYSTATIN SUSP 5 ML CUP PO SCH ×4 (08:49→21:01)
--- NOTE | 2017-01-14 09:21 | PN ---
DATE: 01/13/2017 SUBJECTIVE DATA: No acute events overnight. The patient remains intubated, sedated. He is more awake today and looks comfortable. OBJECTIVE: VITAL SIGNS: Temperature 98, pulse 94, respirations 20, blood pressure 120/72, saturation 100 percent on vent. LABORATORY AND DIAGNOSTIC DATA: WBC 22.7, hemoglobin 7.6, hematocrit 23.2, platelets 69,000, neutrophils 84.1. Sodium 151, potassium 3.2, chloride 117, carbon dioxide 17, BUN 120, creatinine 4.25. Total bilirubin 25. INDWELLINGS: Endotracheal tube, NG tube, [place] catheter. PICC line placed on January 05. MICROBIOLOGY: Endotracheal aspirate growing [place] albicans. ANTIMICROBIALS: The patient is on: 1. Vancomycin. 2. Cancidas. 3. Meropenem. PHYSICAL EXAMINATION: GENERAL: This is a chronically ill appearing, middle-aged man who is in no distress. HEENT: Head atraumatic, normocephalic. Sclerae icteric. Buccal mucosa dry. NECK: Supple. CHEST: Rise symmetrical. Breath sounds diminished at the bases. HEART: S1, S2. ABDOMEN: Soft, bowel sounds present. EXTREMITIES: Without cyanosis, bilateral trace edema. SKIN: With significant anasarca. ASSESSMENT: 1. Sepsis. 2. Acute alcoholic pancreatitis. 3. Acute respiratory failure, possibly aspiration event. 4. Acute renal failure with severe acidosis. 5. Paralytic ileus. 6. History of alcohol (ETOH) abuse. 7. Multiple electrolyte imbalance. PLAN: The patient remains stable. We will continue him on current antimicrobials. As per Gastroenterology recommendations, will discontinue Cancidas and monitor his total bilirubin. Continue present care. Add oral nystatin swish. Dictated By: Thom Loyd NP /derek/[facility] /Document#: [id number]
--- NOTE | 2017-01-14 09:36 | PN ---
Date/Time of Note Date/Time of Note DATE: 01/14/17 TIME: 09:36 Assessment/Plan Lines/Catheters IV Catheter Type (from [facility]): PICC Line Minaya in Place (from [facility]): Yes Assessment/Plan Chief Complaint/Hosp Course 1. Paralytic ileus 2nd acute processes. SBFT negative. + rectal tube output -Monitor 2. Acute on chronic alcoholic pancreatitis with peripancreatic fluid: amylase/ lipase improving -Supportive measures -Judicious fluid management -Trend labs -Encourage cessation 3. Acute GI bleed from gastritis and esophageal varices secondary to alcoholism ; no output from ng tube. Stable -Transfuse as needed -Supportive measures: ppi -Correct coagulopathy and platelet dysfunction 4. Anemia secondary to above -As above 5. Leukocytosis, multifactorial with SIRS and steroid therapy, ? infectious; on abx therapy -Close monitoring -Antibiotics for bacterial translocation 6. Alcoholic hepatitis with hepatosplenomegaly -Medical and GI optimization 7. Chronic alcohol abuse with Delirium Tremens; no tremors currently- sedated -Encourage cessation -Sedation/intubation 8. Subcapsular liver collection possible hematoma versus other -Monitor 9. Electrolyte imbalance -Correct with replacements and fluid management 10. Alcohol withdrawal with tachypnea, tachycardia and delirium tremens; sedated , improved -supportive 11. NICOLAS: output improving. Cr slowly improving. -judicious fluids -avoid nephrotoxic meds -will await teams decision on dialysis 12. Pulm edema: ?05/19 #11 -gentle diuresis -as above Thank you, Problems: Subjective 24 Hr Interval Summary ? Transfer to tertiary center. Cr and uop improving. Rectal tube with + output. Ammonia improved. Continues on sedation and intubation. No fevers, seizures, rash, cough, vomiting, change in rhythm. Exam/Review of Systems Vital Signs Vitals Vital Signs Date Time Temp Pulse Resp B/P Pulse Ox O2 Delivery O2 Flow Rate FiO2 01/14/17 08:00 97.9 77 20 118/70 100 Mechanical Ventilator 01/14/17 05:40 30 Intake and Output 01/13/17 01/13/17 01/14/17 15:00 23:00 07:00 Intake Total 880.0 ml 850.2 ml 1444.5 ml Output Total 673 ml 1235 ml 1300 ml Balance 207.0 ml -384.8 ml 144.5 ml Exam Free Text/Dictation Constitutional: No distress, No oriented. Sedated and intubated. Psych: Sedated and intubated. No nl mood/affect Head: atraumatic, normocephalic, No hematomas, No lacerations Eyes: EOMI, PERRL, icteric ENMT: nl external ears & nose, nl lips & teeth, ng tube without drainage. Mucosa pink and dry. ETT Neck: non-tender, supple, No jvd Respiratory: diminished, intubated. No congested cough, No labored breathing Cardiovascular: No edema, No regular rate and rhythm: SR Gastrointestinal: soft, non-tender, distended, +rectal tube output. No rebound or guarding Musculoskeletal: nl extremities to inspection, No joint tenderness Extremities: normal pulses, No calf tenderness, No cyanosis Neurological: No nl mental status, No nl speech, No nl strength Skin: rash or lesions (Jaundice), No diaphoresis, No nl turgor : minaya with luis output (improved; increased amount) Lymph: nl lymph nodes, nontender Results Result Diagram: 01/14/17 0500 01/14/17 0500 PETER TAMEZ MD Jan 14, 2017 09:36
[2017-01-14] MEDS: PROPOFOL 100 ML IV SCH ×2 (10:00→21:02)
--- NOTE | 2017-01-14 10:01 | CONS ---
Date/Time of Note Date/Time of Note DATE: 01/14/17 TIME: 09:59 Assessment/Plan Assessment/Plan Chief Complaint/Hosp Course ID PROGRESS NOTE TOTAL ABX DAY # CURRENT ABX=> Vanco IV + Merrem + Cancidas (dC'd 01/13) 24H INTERVAL SUMMARY * Critically ill, orally intubated, moves head to verbal stimuli, jaundice * Family present, given update on need for empiric ABX Rx GENERAL: VSS, NAD HEENT: Unremarkable NECK: Trach midline, full ROM CHEST: Rise symmetrical without dyspnea on observation ABDOMEN: Soft, EXTREMITIES: Warm,(+) moves extremities SKIN: No diaphoresis, no rash ID ASSESSMENT: 36 yo M admit with: 1. Hypotension/shock ->Hypovolemic due to acute UGIB from esophageal varices, (+) Presumptive SBP Sepsis + ASP PNA * B/ P better * Leukocytosis ->Multifactorial: likely SBP, ASP Pneumonitis, (+)Reactive SRIS, (+)partial steroid demargination 2. Acute alcoholic pancreatitis => SIRS w/ leukocytosis 3. Acute respiratory failure, possibly aspiration event. 4. Acute renal failure with severe acidosis. 5. Paralytic ileus. 6. History of alcohol (ETOH) abuse, withdrawal 7. Multiple electrolyte imbalance. INVASIVES: ETT, NGT, FC, PICC (01/05/17) ABX ALLERGY: NKDA TOTAL ABX DAY # CURRENT ABX=>=> Vanco IV + Merrem + Cancidas (dC'd 01/13) ID PLAN 1. Continue current ABX & await clinical improvement . Problems: Consultation Date/Type/Reason Admit Date/Time Jan 02, 2017 at 19:30 Initial Consult Date 01/07/17 Type of Consultation: ID Referring Provider: BRAEDEN LUNSFORD MD Exam/Review of Systems Vital Signs Vitals Vital Signs Date Time Temp Pulse Resp B/P Pulse Ox O2 Delivery O2 Flow Rate FiO2 01/14/17 08:00 97.9 77 20 118/70 100 Mechanical Ventilator 01/14/17 05:40 30 Intake and Output 01/13/17 01/13/17 01/14/17 15:00 23:00 07:00 Intake Total 880.0 ml 850.2 ml 1444.5 ml Output Total 673 ml 1235 ml 1300 ml Balance 207.0 ml -384.8 ml 144.5 ml Results Result Diagram: 01/14/17 0500 01/14/17 0500 Results 24 hrs Laboratory Tests Test 01/13/17 10:52 01/13/17 11:40 01/13/17 12:37 01/13/17 16:15 Hemoglobin 7.6 L Hematocrit 24.1 L Urine Color ANITRA Urine Clarity CLEAR Urine pH 6.0 Urine Specific [place] 1.015 Urine Ketones NEGATIVE Urine Nitrite NEGATIVE Urine Bilirubin 2+ H Urine Urobilinogen 1+ H Urine Leukocyte Esterase NEGATIVE Urine Microscopic RBC 2 Urine Microscopic WBC 2 Urine Bacteria FEW A Urine Mucus FEW A Urine Hemoglobin 1+ H Urine Glucose NEGATIVE Urine Total Protein 1+ H Bedside Glucose 143 Sodium Level 150 H Potassium Level 4.1 Chloride Level 118 H Carbon Dioxide Level 18 L Anion Gap 18 H Blood Urea Nitrogen 116 H Creatinine 3.78 H Glucose Level 132 Calcium Level 8.7 Test 01/13/17 17:50 01/13/17 20:33 01/14/17 01:20 01/14/17 05:00 Bedside Glucose 132 154 182 White Blood Count 22.3 H Red Blood Count 2.23 L Hemoglobin 7.9 L Hematocrit 24.2 L Mean Corpuscular Volume 108.5 H Mean Corpuscular Hemoglobin 35.4 H Mean Corpuscular Hemoglobin Concent 32.6 Red Cell Distribution Width 23.8 H Platelet Count 75 L Mean Platelet Volume 11.9 H Neutrophils % 88.1 H Lymphocytes % 2.5 L Monocytes % 4.8 Eosinophils % 0.0 Basophils % 0.2 Nucleated Red Blood Cells % 0.0 Neutrophils # 19.7 H Lymphocytes # 0.6 L Monocytes # 1.1 H Eosinophils # 0.0 Basophils # 0.0 Nucleated Red Blood Cells # 0.0 Prothrombin Time 26.0 H Prothrombin Time Ratio 2.0 INR International Normalized Ratio 2.35 Sodium Level 147 H Potassium Level 4.3 Chloride Level 117 H Carbon Dioxide Level 17 L Anion Gap 17 H Blood Urea Nitrogen 113 H Creatinine 3.36 H Glucose Level 278 #H Calcium Level 8.6 Phosphorus Level 6.0 H Magnesium Level 2.4 Total Bilirubin 24.1 H Direct Bilirubin 22.00 *H Indirect Bilirubin 2.1 H Aspartate Amino Transf (AST/SGOT) 193 H Alanine Aminotransferase (ALT/SGPT) 43 Alkaline Phosphatase 273 H Ammonia 45 H Total Protein 6.3 Albumin 2.8 L Globulin 3.50 H Albumin/Globulin Ratio 0.80 Lipase 616 H Test 01/14/17 05:19 01/14/17 08:51 Bedside Glucose 184 154 Medications Medications Current Medications Ondansetron HCl (Zofran Inj) 4 mg Q6H PRN IV NAUSEA AND/OR VOMITING Last administered on 01/03/17 14:52; Admin Dose 4 MG; Start 01/02/17 at 23:00 Docusate Sodium (Colace) 100 mg Q12H PRN PO CONSTIPATION; Start 01/02/17 at 23: 00 Rifaximin (Xifaxan) 550 mg BID PO Last administered on 01/14/17 08:49; Admin Dose 550 MG; Start 01/04/17 at 11:00 Metoclopramide HCl (Reglan) 10 mg Q6 IV Last administered on 01/14/17 05:20; Admin Dose 10 MG; Start 01/05/17 at 00:00 Lorazepam (Ativan) 1 mg Q2 PRN IV ANXIETY Last administered on 01/11/17 08:32 ; Admin Dose 1 MG; Start 01/05/17 at 13:00 IV Flush (NS 10 ml) 10 ml PRN PRN IV IV PROTOCOL; Start 01/05/17 at 18:30 Diagnostic Test (Pha) (Accu-Chek) 1 ea Q4 XX Last administered on 01/14/17 08: 49; Admin Dose 1 EA; Start 01/06/17 at 17:00 Diazepam (Valium) 10 mg Q2H PRN IV ANXIETY Last administered on 01/08/17 01:43 ; Admin Dose 10 MG; Start 01/07/17 at 12:00 Pantoprazole 40 mg 40 mg DAILY IV Last administered on 01/14/17 08:49; Admin Dose 40 MG; Start 01/09/17 at 09:00 Propofol 100 ml @ 2.217 mls/ hr Q12H IV Last administered on 01/13/17 22:37; Admin Dose 4.434 MLS/HR; Start 01/09/17 at 10:00 Meropenem/Sodium Chloride 50 ml @ 100 mls/hr Q12 IVPB Last administered on 08:49; Admin Dose 100 MLS/HR; Start 01/09/17 at 21:00 Total Parenteral Nutrition 1,000 ml @ 40 mls/hr Q24H IV Last administered on 12:29; Admin Dose 40 MLS/HR; Start 01/09/17 at 18:00 Octreotide Acetate/Sodium Chloride (Sandostatin/NS) 50 ml @ 2.5 mls/hr Q20H IV Last administered on 01/13/17 22:37; Admin Dose 2.5 MLS/HR; Start 01/11/17 at 10:00 Prednisolone (Prelone (Ped)) 40 mg DAILY PO Last administered on 01/13/17 17: 48; Admin Dose 40 MG; Start 01/12/17 at 09:00 Citric Acid/ Sodium Citrate (Bicitra) 30 ml TID NGT Last administered on 08:49; Admin Dose 30 ML; Start 01/12/17 at 09:00 Lactulose 20 gm 20 gm TID NGT Last administered on 01/14/17 08:49; Admin Dose 20 GM; Start 01/12/17 at 13:00 Vancomycin HCl/ Dextrose (Vancocin/D5W) 250 ml @ 83.333 mls/ hr Q48H IVPB ; Start 01/14/17 at 10:00 Nystatin 5 ml 5 ml QID PO Last administered on 01/14/17 08:49; Admin Dose 5 ML ; Start 01/13/17 at 17:00 Dextrose (D5W) 1,000 ml @ 75 mls/hr [id number] IV Last administered on 01/14/17 08:16; Admin Dose 75 MLS/HR; Start 01/13/17 at 19:30 DOE OVALLES NP Jan 14, 2017 10:00
[2017-01-14] MEDS: VANCOMYCIN 1 GM in DEXTROSE 5% 250 ML IVPB SCH (10:16)
[2017-01-14] MEDS: predniSOLONE (3 MG/ML PO SYG) PO SCH (11:35)
--- NOTE | 2017-01-14 12:18 | CONS ---
Date/Time of Note Date/Time of Note DATE: 01/14/17 TIME: 12:14 Consult Date/Type/Reason Admit Date/Time Jan 02, 2017 at 19:30 Initial Consult Date 01/07/17 Type of Consultation: Pulm/CCM Ordering Provider: BRAEDEN LUNSFORD MD Subjective On mechanical vent. Not responsive to commands. Objective Vital Signs Date Time Temp Pulse Resp B/P Pulse Ox O2 Delivery O2 Flow Rate FiO2 01/14/17 08:00 95 01/14/17 08:00 97.9 20 118/70 100 Mechanical Ventilator 01/14/17 05:40 30 Intake and Output 01/13/17 01/13/17 01/14/17 15:00 23:00 07:00 Intake Total 880.0 ml 850.2 ml 1444.5 ml Output Total 673 ml 1235 ml 1300 ml Balance 207.0 ml -384.8 ml 144.5 ml Exam HEENT: Neck supple; no JVD; no LAD; + ET tube CVS: RRR, S1 and S2 CHEST: Clear ABD: Soft, NT, + BS, distended EXT: No c/c; + edema Results/Medications Result Diagram: 01/14/17 0500 01/14/17 0500 Results 24 hrs Laboratory Tests Test 01/13/17 12:37 01/13/17 16:15 01/13/17 17:50 01/13/17 20:33 Bedside Glucose 143 132 154 Sodium Level 150 H Potassium Level 4.1 Chloride Level 118 H Carbon Dioxide Level 18 L Anion Gap 18 H Blood Urea Nitrogen 116 H Creatinine 3.78 H Glucose Level 132 Calcium Level 8.7 Test 01/14/17 01:20 01/14/17 05:00 01/14/17 05:19 01/14/17 08:51 Bedside Glucose 182 184 154 White Blood Count 22.3 H Red Blood Count 2.23 L Hemoglobin 7.9 L Hematocrit 24.2 L Mean Corpuscular Volume 108.5 H Mean Corpuscular Hemoglobin 35.4 H Mean Corpuscular Hemoglobin Concent 32.6 Red Cell Distribution Width 23.8 H Platelet Count 75 L Mean Platelet Volume 11.9 H Neutrophils % 88.1 H Lymphocytes % 2.5 L Monocytes % 4.8 Eosinophils % 0.0 Basophils % 0.2 Nucleated Red Blood Cells % 0.0 Neutrophils # 19.7 H Lymphocytes # 0.6 L Monocytes # 1.1 H Eosinophils # 0.0 Basophils # 0.0 Nucleated Red Blood Cells # 0.0 Prothrombin Time 26.0 H Prothrombin Time Ratio 2.0 INR International Normalized Ratio 2.35 Sodium Level 147 H Potassium Level 4.3 Chloride Level 117 H Carbon Dioxide Level 17 L Anion Gap 17 H Blood Urea Nitrogen 113 H Creatinine 3.36 H Glucose Level 278 #H Calcium Level 8.6 Phosphorus Level 6.0 H Magnesium Level 2.4 Total Bilirubin 24.1 H Direct Bilirubin 22.00 *H Indirect Bilirubin 2.1 H Aspartate Amino Transf (AST/SGOT) 193 H Alanine Aminotransferase (ALT/SGPT) 43 Alkaline Phosphatase 273 H Ammonia 45 H Total Protein 6.3 Albumin 2.8 L Globulin 3.50 H Albumin/Globulin Ratio 0.80 Lipase 616 H Medications Current Medications Ondansetron HCl (Zofran Inj) 4 mg Q6H PRN IV NAUSEA AND/OR VOMITING Last administered on 01/03/17 14:52; Admin Dose 4 MG; Start 01/02/17 at 23:00 Docusate Sodium (Colace) 100 mg Q12H PRN PO CONSTIPATION; Start 01/02/17 at 23: 00 Rifaximin (Xifaxan) 550 mg BID PO Last administered on 01/14/17 08:49; Admin Dose 550 MG; Start 01/04/17 at 11:00 Metoclopramide HCl (Reglan) 10 mg Q6 IV Last administered on 01/14/17 11:35; Admin Dose 10 MG; Start 01/05/17 at 00:00 Lorazepam (Ativan) 1 mg Q2 PRN IV ANXIETY Last administered on 01/11/17 08:32 ; Admin Dose 1 MG; Start 01/05/17 at 13:00 IV Flush (NS 10 ml) 10 ml PRN PRN IV IV PROTOCOL; Start 01/05/17 at 18:30 Diagnostic Test (Pha) (Accu-Chek) 1 ea Q4 XX Last administered on 01/14/17 08: 49; Admin Dose 1 EA; Start 01/06/17 at 17:00 Diazepam (Valium) 10 mg Q2H PRN IV ANXIETY Last administered on 01/08/17 01:43 ; Admin Dose 10 MG; Start 01/07/17 at 12:00 Pantoprazole 40 mg 40 mg DAILY IV Last administered on 01/14/17 08:49; Admin Dose 40 MG; Start 01/09/17 at 09:00 Propofol 100 ml @ 2.217 mls/ hr Q12H IV Last administered on 01/13/17 22:37; Admin Dose 4.434 MLS/HR; Start 01/09/17 at 10:00 Meropenem/Sodium Chloride 50 ml @ 100 mls/hr Q12 IVPB Last administered on 08:49; Admin Dose 100 MLS/HR; Start 01/09/17 at 21:00 Total Parenteral Nutrition 1,000 ml @ 40 mls/hr Q24H IV Last administered on 12:29; Admin Dose 40 MLS/HR; Start 01/09/17 at 18:00 Octreotide Acetate/Sodium Chloride (Sandostatin/NS) 50 ml @ 2.5 mls/hr Q20H IV Last administered on 01/13/17 22:37; Admin Dose 2.5 MLS/HR; Start 01/11/17 at 10:00 Prednisolone (Prelone (Ped)) 40 mg DAILY PO Last administered on 01/14/17 11: 35; Admin Dose 40 MG; Start 01/12/17 at 09:00 Citric Acid/ Sodium Citrate (Bicitra) 30 ml TID NGT Last administered on 08:49; Admin Dose 30 ML; Start 01/12/17 at 09:00 Lactulose 20 gm 20 gm TID NGT Last administered on 01/14/17 08:49; Admin Dose 20 GM; Start 01/12/17 at 13:00 Vancomycin HCl/ Dextrose (Vancocin/D5W) 250 ml @ 83.333 mls/ hr Q48H IVPB Last administered on 01/14/17 10:16; Admin Dose 83.333 MLS/HR; Start 01/14/17 at 10:00 Nystatin 5 ml 5 ml QID PO Last administered on 01/14/17 08:49; Admin Dose 5 ML ; Start 01/13/17 at 17:00 Dextrose (D5W) 1,000 ml @ 75 mls/hr [id number] IV Last administered on 01/14/17 08:16; Admin Dose 75 MLS/HR; Start 01/13/17 at 19:30 Assessment/Plan Additional Assessment/Plan IMP: 1. Decompensate liver failure in setting of acute alcoholic hepatitis 2. ARF--ATN vs. HRS 3. Hepatic Encephalopathy 4. VDRF 5. Anemia--s/p UGIB 6. Partial SBO RECS: 1. Vent support 2. Follow urine output 3. Continue Rifaximin and lactulose 4. Close neuro checks 5. Maintain HOB elevate; serum Na+ ~ 145; and PaCO2 ~ 30 6. Prognosis poor 35 min cc time AUGUST WARNER MD Jan 14, 2017 12:18
--- NOTE | 2017-01-14 14:15 | CONS ---
Date/Time of Note Date/Time of Note DATE: 01/14/17 TIME: 14:08 Assessment/Plan Assessment/Plan Additional Assessment/Plan Additional Assessment/Plan IMPRESSION: 1. Delirium tremens. The patient is now intubated and on propofol 2. Hepatic encephalopathy. Ammonia is 47 partly related to propofol and Ativan 3. Alcoholic liver disease. Patient is on prednisolone 4. Pancreatitis. Amylase has come down . Lipase is down 5. Leukocytosis. WBC count is coming down slowly 6. Renal insufficiency. Though the urine output is good. Renal function has improved a lot with good urine output. Creatinine is coming down. Now it is 3.2 7. Pedal edema and ascites, reducing 8. Thrombocytopenia 9. Ileus, small bowel follow-through was negative 10. Patient's gastroparesis might be related to uremia Plan 1. Continue prednisolone 2. Discontinue all flushes through NG tube, which is increasing fluid overload 3. Patient is off propofol for more than 8 hours, he is moving all his extremities and responding to his name. Patient is also not tachycardic. I discussed with electrician sound to try the weaning process. 4. Reduce IV fluid since patient is third spacing, may need albumin. 5. Since the kidney function is improving and the urine output is good I would continue octreotide 6. We will monitor WBC, INR, total bilirubin, and creatinine on a regular basis 7. I had [id number] discussion with the mother and the family members and also with the supervisor coffee and electrician sound. 8. If bilirubin does not come down I may add pentoxifylline 400 mg once a day Consultation Date/Type/Reason Admit Date/Time Jan 02, 2017 at 19:30 Type of Consultation: Pulm/CCM Referring Provider: BRAEDEN LUNSFORD MD 24 HR Interval Summary Constitutional: improved Exam/Review of Systems Vital Signs Vitals Vital Signs Date Time Temp Pulse Resp B/P Pulse Ox O2 Delivery O2 Flow Rate FiO2 01/14/17 08:00 95 01/14/17 08:00 97.9 20 118/70 100 Mechanical Ventilator 01/14/17 05:40 30 Intake and Output 01/13/17 01/13/17 01/14/17 15:00 23:00 07:00 Intake Total 880.0 ml 850.2 ml 1522.0 ml Output Total 673 ml 1235 ml 1300 ml Balance 207.0 ml -384.8 ml 222.0 ml Exam Respiratory: other (And is on vent) Gastrointestinal: distended Extremities: pitting pedal edema Neurological: lethargic Skin: nl turgor, No rash or lesions Results Result Diagram: 01/14/17 0500 01/14/17 0500 Results 24 hrs Laboratory Tests Test 01/13/17 16:15 01/13/17 17:50 01/13/17 20:33 01/14/17 01:20 Sodium Level 150 H Potassium Level 4.1 Chloride Level 118 H Carbon Dioxide Level 18 L Anion Gap 18 H Blood Urea Nitrogen 116 H Creatinine 3.78 H Glucose Level 132 Calcium Level 8.7 Bedside Glucose 132 154 182 Test 01/14/17 05:00 01/14/17 05:19 01/14/17 08:51 01/14/17 13:07 White Blood Count 22.3 H Red Blood Count 2.23 L Hemoglobin 7.9 L Hematocrit 24.2 L Mean Corpuscular Volume 108.5 H Mean Corpuscular Hemoglobin 35.4 H Mean Corpuscular Hemoglobin Concent 32.6 Red Cell Distribution Width 23.8 H Platelet Count 75 L Mean Platelet Volume 11.9 H Neutrophils % 88.1 H Lymphocytes % 2.5 L Monocytes % 4.8 Eosinophils % 0.0 Basophils % 0.2 Nucleated Red Blood Cells % 0.0 Neutrophils # 19.7 H Lymphocytes # 0.6 L Monocytes # 1.1 H Eosinophils # 0.0 Basophils # 0.0 Nucleated Red Blood Cells # 0.0 Prothrombin Time 26.0 H Prothrombin Time Ratio 2.0 INR International Normalized Ratio 2.35 Sodium Level 147 H Potassium Level 4.3 Chloride Level 117 H Carbon Dioxide Level 17 L Anion Gap 17 H Blood Urea Nitrogen 113 H Creatinine 3.36 H Glucose Level 278 #H Calcium Level 8.6 Phosphorus Level 6.0 H Magnesium Level 2.4 Total Bilirubin 24.1 H Direct Bilirubin 22.00 *H Indirect Bilirubin 2.1 H Aspartate Amino Transf (AST/SGOT) 193 H Alanine Aminotransferase (ALT/SGPT) 43 Alkaline Phosphatase 273 H Ammonia 45 H Total Protein 6.3 Albumin 2.8 L Globulin 3.50 H Albumin/Globulin Ratio 0.80 Lipase 616 H Bedside Glucose 184 154 180 Medications Medications Current Medications Ondansetron HCl (Zofran Inj) 4 mg Q6H PRN IV NAUSEA AND/OR VOMITING Last administered on 01/03/17 14:52; Admin Dose 4 MG; Start 01/02/17 at 23:00 Docusate Sodium (Colace) 100 mg Q12H PRN PO CONSTIPATION; Start 01/02/17 at 23: 00 Rifaximin (Xifaxan) 550 mg BID PO Last administered on 01/14/17 08:49; Admin Dose 550 MG; Start 01/04/17 at 11:00 Metoclopramide HCl (Reglan) 10 mg Q6 IV Last administered on 01/14/17 11:35; Admin Dose 10 MG; Start 01/05/17 at 00:00 Lorazepam (Ativan) 1 mg Q2 PRN IV ANXIETY Last administered on 01/11/17 08:32 ; Admin Dose 1 MG; Start 01/05/17 at 13:00 IV Flush (NS 10 ml) 10 ml PRN PRN IV IV PROTOCOL; Start 01/05/17 at 18:30 Diagnostic Test (Pha) (Accu-Chek) 1 ea Q4 XX Last administered on 01/14/17 13: 08; Admin Dose 1 EA; Start 01/06/17 at 17:00 Diazepam (Valium) 10 mg Q2H PRN IV ANXIETY Last administered on 01/08/17 01:43 ; Admin Dose 10 MG; Start 01/07/17 at 12:00 Pantoprazole 40 mg 40 mg DAILY IV Last administered on 01/14/17 08:49; Admin Dose 40 MG; Start 01/09/17 at 09:00 Propofol 100 ml @ 2.217 mls/ hr Q12H IV Last administered on 01/13/17 22:37; Admin Dose 4.434 MLS/HR; Start 01/09/17 at 10:00 Meropenem/Sodium Chloride 50 ml @ 100 mls/hr Q12 IVPB Last administered on 08:49; Admin Dose 100 MLS/HR; Start 01/09/17 at 21:00 Total Parenteral Nutrition 1,000 ml @ 40 mls/hr Q24H IV Last administered on 12:29; Admin Dose 40 MLS/HR; Start 01/09/17 at 18:00 Octreotide Acetate/Sodium Chloride (Sandostatin/NS) 50 ml @ 2.5 mls/hr Q20H IV Last administered on 01/13/17 22:37; Admin Dose 2.5 MLS/HR; Start 01/11/17 at 10:00 Prednisolone (Prelone (Ped)) 40 mg DAILY PO Last administered on 01/14/17 11: 35; Admin Dose 40 MG; Start 01/12/17 at 09:00 Citric Acid/ Sodium Citrate (Bicitra) 30 ml TID NGT Last administered on 13:05; Admin Dose 30 ML; Start 01/12/17 at 09:00 Lactulose 20 gm 20 gm TID NGT Last administered on 01/14/17 13:05; Admin Dose 20 GM; Start 01/12/17 at 13:00 Vancomycin HCl/ Dextrose (Vancocin/D5W) 250 ml @ 83.333 mls/ hr Q48H IVPB Last administered on 01/14/17 10:16; Admin Dose 83.333 MLS/HR; Start 01/14/17 at 10:00 Nystatin 5 ml 5 ml QID PO Last administered on 01/14/17 13:05; Admin Dose 5 ML ; Start 01/13/17 at 17:00 Dextrose (D5W) 1,000 ml @ 75 mls/hr [id number] IV Last administered on 01/14/17 08:16; Admin Dose 75 MLS/HR; Start 01/13/17 at 19:30 LAURA CORDERO MD Jan 14, 2017 14:15
[2017-01-14] MEDS: TPN 1,000 ML IV SCH (15:02)
--- NOTE | 2017-01-14 15:40 | PN ---
Date/Time of Note Date/Time of Note DATE: 01/14/17 TIME: 15:22 Assessment/Plan VTE Prophylaxis VTE Prophylaxis Intervention: contraindicated VTE Contraindication Reason: bleeding Lines/Catheters IV Catheter Type (from Nrsg): PICC Line Central line still needed: Yes Urinary Cath still in place: Yes Reason Cath still needed: urinary retention Assessment/Plan Chief Complaint/Hosp Course 36 y/o with # NICOLAS likely Oliguric ATN vs HRS, Cr peaked to 5.13 today trending down to 4.92> 4.2>3.2 , BUN 111( still elevated could be also component of prednisolone)>113 # Acute on chronic liver failure likely Etoh abuse with elevated INR, Hyperbilirubenemia, low platelets, Bilirubin 22 # Hepatic encephalopathy with elevated Ammonia levels down to 47 improving # ETOH withdrawal on Ativan/librium tapered off # ETOH pancreatitis with Lipase 7690> trending down to 2000> trended down siginificantly # Non Gap Acidosis likely combination of renal failure and diarrhoea # Leukocytosis could be pancreatitis vs Alcholic hepatitis on +Vancomycin and Meropenam, Pt on Nystatin ( mellisa in gram stain) # Hypoxic Respiratory failure s/p Intubation # Thrombocytopenia # Anemia likely hemodilutional : no evidence of bleeding s/p EGD with gastritis and gastroparesis on PPI and Reglan # s/P EGD with gastritis and gastroparesis on Protonix and Reglan # Ileus s/p Small bowel follow thru which is negative, f/u Surgery Recs - Since Cr is still trending down, HD on hold - Switch fluids to D5W at 50 - Hold FWF per Dr Mercer - Repeat BMP now - Agree with c/w Keep off sedation and weaning trials per Pulmonary - c/w Bictra 30 ml tid for acidosis - c/w Meropenam/Vancomycin/nystatin per I.D ( renally dosed) - c/w Prednisolone 40 and octreotide gtt ( 4) , per Dr Mercer, might start trental - Spoke to pharmacy to adjust electrolytes in TPN - Monitor UOP very closely - Vent management per Pulmonary - c/w ICU care - Spoke to mother at the bedside and discussed with her action, treatment and plan and discussed with Dr Mercer Problems: Subjective 24 Hr Interval Summary Free Text/Dictation Pt is off sedation following all commands UOP 100-120 cc/hr Rectal output + Cr down to 3.2 Na 147 Exam/Review of Systems Vital Signs Vitals Vital Signs Date Time Temp Pulse Resp B/P Pulse Ox O2 Delivery O2 Flow Rate FiO2 01/14/17 14:00 95 25 129/86 99 Mechanical Ventilator 01/14/17 13:35 30 01/14/17 12:00 97.9 Intake and Output 01/13/17 01/13/17 01/14/17 15:00 23:00 07:00 Intake Total 880.0 ml 850.2 ml 1522.0 ml Output Total 673 ml 1235 ml 1300 ml Balance 207.0 ml -384.8 ml 222.0 ml Exam Gen:Intubated , follows commands HEENT: blood tinged teeth, Scleral icterus Neck:supple CVS: Regular rate and rthym Lungs: decreased breath sounds b/l Abdomen: distended ++, faint bowel sounds Ext: + edema ble minaya draining more yellow urine Rectal tube with stool output Results Result Diagram: 01/14/17 0500 01/14/17 0500 Results 24 hrs Laboratory Tests Test 01/13/17 16:15 01/13/17 17:50 01/13/17 20:33 01/14/17 01:20 Sodium Level 150 H Potassium Level 4.1 Chloride Level 118 H Carbon Dioxide Level 18 L Anion Gap 18 H Blood Urea Nitrogen 116 H Creatinine 3.78 H Glucose Level 132 Calcium Level 8.7 Bedside Glucose 132 154 182 Test 01/14/17 05:00 01/14/17 05:19 01/14/17 08:51 01/14/17 13:07 White Blood Count 22.3 H Red Blood Count 2.23 L Hemoglobin 7.9 L Hematocrit 24.2 L Mean Corpuscular Volume 108.5 H Mean Corpuscular Hemoglobin 35.4 H Mean Corpuscular Hemoglobin Concent 32.6 Red Cell Distribution Width 23.8 H Platelet Count 75 L Mean Platelet Volume 11.9 H Neutrophils % 88.1 H Lymphocytes % 2.5 L Monocytes % 4.8 Eosinophils % 0.0 Basophils % 0.2 Nucleated Red Blood Cells % 0.0 Neutrophils # 19.7 H Lymphocytes # 0.6 L Monocytes # 1.1 H Eosinophils # 0.0 Basophils # 0.0 Nucleated Red Blood Cells # 0.0 Prothrombin Time 26.0 H Prothrombin Time Ratio 2.0 INR International Normalized Ratio 2.35 Sodium Level 147 H Potassium Level 4.3 Chloride Level 117 H Carbon Dioxide Level 17 L Anion Gap 17 H Blood Urea Nitrogen 113 H Creatinine 3.36 H Glucose Level 278 #H Calcium Level 8.6 Phosphorus Level 6.0 H Magnesium Level 2.4 Total Bilirubin 24.1 H Direct Bilirubin 22.00 *H Indirect Bilirubin 2.1 H Aspartate Amino Transf (AST/SGOT) 193 H Alanine Aminotransferase (ALT/SGPT) 43 Alkaline Phosphatase 273 H Ammonia 45 H Total Protein 6.3 Albumin 2.8 L Globulin 3.50 H Albumin/Globulin Ratio 0.80 Lipase 616 H Bedside Glucose 184 154 180 Medications Medications Current Medications Ondansetron HCl (Zofran Inj) 4 mg Q6H PRN IV NAUSEA AND/OR VOMITING Last administered on 01/03/17 14:52; Admin Dose 4 MG; Start 01/02/17 at 23:00 Docusate Sodium (Colace) 100 mg Q12H PRN PO CONSTIPATION; Start 01/02/17 at 23: 00 Rifaximin (Xifaxan) 550 mg BID PO Last administered on 01/14/17 08:49; Admin Dose 550 MG; Start 01/04/17 at 11:00 Metoclopramide HCl (Reglan) 10 mg Q6 IV Last administered on 01/14/17 11:35; Admin Dose 10 MG; Start 01/05/17 at 00:00 Lorazepam (Ativan) 1 mg Q2 PRN IV ANXIETY Last administered on 01/11/17 08:32 ; Admin Dose 1 MG; Start 01/05/17 at 13:00 IV Flush (NS 10 ml) 10 ml PRN PRN IV IV PROTOCOL; Start 01/05/17 at 18:30 Diagnostic Test (Pha) (Accu-Chek) 1 ea Q4 XX Last administered on 01/14/17 13: 08; Admin Dose 1 EA; Start 01/06/17 at 17:00 Diazepam (Valium) 10 mg Q2H PRN IV ANXIETY Last administered on 01/08/17 01:43 ; Admin Dose 10 MG; Start 01/07/17 at 12:00 Pantoprazole 40 mg 40 mg DAILY IV Last administered on 01/14/17 08:49; Admin Dose 40 MG; Start 01/09/17 at 09:00 Propofol 100 ml @ 2.217 mls/ hr Q12H IV Last administered on 01/13/17 22:37; Admin Dose 4.434 MLS/HR; Start 01/09/17 at 10:00 Meropenem/Sodium Chloride 50 ml @ 100 mls/hr Q12 IVPB Last administered on 08:49; Admin Dose 100 MLS/HR; Start 01/09/17 at 21:00 Total Parenteral Nutrition 1,000 ml @ 40 mls/hr Q24H IV Last administered on 15:02; Admin Dose 40 MLS/HR; Start 01/09/17 at 18:00 Octreotide Acetate/Sodium Chloride (Sandostatin/NS) 50 ml @ 2.5 mls/hr Q20H IV Last administered on 01/13/17 22:37; Admin Dose 2.5 MLS/HR; Start 01/11/17 at 10:00 Prednisolone (Prelone (Ped)) 40 mg DAILY PO Last administered on 01/14/17 11: 35; Admin Dose 40 MG; Start 01/12/17 at 09:00 Citric Acid/ Sodium Citrate (Bicitra) 30 ml TID NGT Last administered on 13:05; Admin Dose 30 ML; Start 01/12/17 at 09:00 Lactulose 20 gm 20 gm TID NGT Last administered on 01/14/17 13:05; Admin Dose 20 GM; Start 01/12/17 at 13:00 Vancomycin HCl/ Dextrose (Vancocin/D5W) 250 ml @ 83.333 mls/ hr Q48H IVPB Last administered on 01/14/17 10:16; Admin Dose 83.333 MLS/HR; Start 01/14/17 at 10:00 Nystatin 5 ml 5 ml QID PO Last administered on 01/14/17 13:05; Admin Dose 5 ML ; Start 01/13/17 at 17:00 Dextrose (D5W) 1,000 ml @ 50 mls/hr Q20H IV Last administered on 01/14/17 08: 16; Admin Dose 75 MLS/HR; Start 01/13/17 at 19:30 BRAEDEN LUNSFORD MD Jan 14, 2017 15:34
[2017-01-14 16:16] LABS: CALCIUM 9.2 mg/dl (8.4-10.2); CREATININE 3.32 mg/dl (0.61-1.24); POTASSIUM 3.1 mmol/L (3.5-5.1)
[2017-01-14] MEDS: OCTREOTIDE 500 MCG in SOD CHLORIDE 0.9% 49 ML IV SCH (18:45)
[2017-01-14] MEDS: LORAZEPAM 2 MG INJ IV PRN (22:52)
[2017-01-15] VITALS (28 sets, daily range): BP systolic 111–143; BP diastolic 63–100; PULSE 72–98; RESP 13–24
[2017-01-15] MEDS: METOCLOPRAMIDE 10 MG INJ IV SCH ×5 (00:26→23:31)
[2017-01-15] MEDS: ACCU-CHEK XX SCH ×6 (00:27→21:15)
[2017-01-15] MEDS ORDERED: POTASSIUM CHLORIDE 50 ML IVPB ONE ×2 (01:30→07:00)
[2017-01-15] MEDS: DEXTROSE 5% 1,000 ML IV SCH ×2 (02:58→18:34)
[2017-01-15] MEDS: LORAZEPAM 2 MG INJ IV PRN ×2 (03:03→23:25)
[2017-01-15 04:50] LABS: AADO2 Arterial 77.5 mmHg (7.0-24.0); Allen Test ACCEPTAB; Arterial Base Excess -7.3 mmol/L (-3.0-3); Arterial COHb 1.7 % (0.0-3.0); Arterial Fraction of Oxyhgb 95.9 % (93.0-99.0); Arterial HCO3 16.5 mmol/L (22.0-26.0); Arterial MetHb 0 % (0.0-1.5); Arterial Total Hemglobin 8.9 g/dl (12.0-18.0); MODE VENT - AC
[2017-01-15 06:18] LABS: ABNORMAL IP MESSAGE 1; BASOPHILS % 0.1 % (0.0-2.0); HEMOGLOBIN 7.7 g/dl (14.0-18.0); LYMPHOCYTES # 0.7 10^3/ul (0.8-2.9); MEAN CORPUSCULAR HGB CONC 32.1 g/dl (32.0-37.0); MEAN CORPUSCULAR VOLUME 109.1 fl (82.0-101.0); MEAN PLATELET VOLUME 12.7 fl (7.4-10.4); MONOCYTE # 1.3 10^3/ul (0.3-0.9); MONOCYTES % 5.7 % (0.0-11.0); NEUTROPHIL # 19.3 10^3/ul (1.6-7.5); NEUTROPHILS % 86.2 % (39.0-77.0); NUCLEATED RED BLOOD CELLS% 0.1 /100WBC (0.0-0.0); PLATELET COUNT 81 10^3/UL (140-415); POSITIVE DIFF @See below; RED CELL DISTRIBUTION WIDTH 23.7 % (11.5-14.5); WHITE BLOOD COUNT 22.4 10^3/ul (4.8-10.8)
[2017-01-15 06:35] LABS: ALBUMIN 2.5 g/dl (3.3-4.9); ALBUMIN/GLOBULIN RATIO 0.65; BILIRUBIN,TOTAL 23.2 mg/dl (0.2-1.3); CALCIUM 8.8 mg/dl (8.4-10.2); CREATININE 2.84 mg/dl (0.61-1.24); POTASSIUM 3.2 mmol/L (3.5-5.1); TOTAL PROTEIN 6.3 g/dl (6.1-8.1)
[2017-01-15 06:39] LABS: BILIRUBIN,DIRECT 21.2 mg/dl (0.00-0.20)
[2017-01-15] MEDS ORDERED: 1/2 NS + KCL 20 MEQ 1,000 ML IV SCH (07:00)
[2017-01-15 07:47] LABS: MAGNESIUM 2.2 mg/dl (1.7-2.5); PHOSPHORUS 4.7 mg/dl (2.5-4.9)
[2017-01-15] MEDS: LACTULOSE 30ML CUP NGT SCH ×3 (08:34→20:17)
[2017-01-15] MEDS: CITRIC ACID/NA CITRATE 30 ML CUP NGT SCH ×3 (08:34→20:17)
[2017-01-15] MEDS: RIFAXIMIN 550 MG TAB PO SCH ×2 (08:34→20:18)
[2017-01-15] MEDS: PANTOPRAZOLE 40 MG INJ IV SCH (08:34)
[2017-01-15] MEDS: NYSTATIN SUSP 5 ML CUP PO SCH ×4 (08:35→20:17)
[2017-01-15] MEDS: BALSAM PERU/CASTOR OIL 60 GM TUBE TOP SCH ×2 (08:35→20:18)
[2017-01-15] MEDS: predniSOLONE (3 MG/ML PO SYG) PO SCH (08:35)
[2017-01-15] MEDS: PROPOFOL 100 ML IV SCH (08:36)
--- NOTE | 2017-01-15 10:12 | RADRPT ---
PROCEDURE: XR Chest. CLINICAL INDICATION: Upper GI bleed TECHNIQUE: Anterior chest x-ray. COMPARISON: 01/11/2017 FINDINGS: endotracheal tube terminates 1.7 cm above the simeon. Nasogastric tube terminates the body of stomach. Left-sided PICC line terminates at the cavoatrial junction. Bibasilar subsegmental atelectasis is unchanged. There is no focal consolidation. No pleural effusion identified. There is no evidence of pneumothorax. The cardiomediastinal silhouette is unremarkable. The soft tissues are normal. Osseous structures are unremarkable. IMPRESSION: 1. Stable and satisfactory position life-support lines. 2. Bibasilar subsegmental atelectasis, unchanged. RPTAT: QQ .Sahil Dumas MD, Date Time Electronically viewed and signed by .Sahil Dumas MD, on 01/15/2017 10:12 .M/
[2017-01-15] MEDS: MEROPENEM 500MG/50 ML (PMX) 50 ML IVPB SCH ×2 (11:07→20:20)
[2017-01-15 11:28] LABS: AADO2 Arterial 100.3 mmHg (7.0-24.0); Allen Test ACCEPTAB; Arterial Base Excess -6.2 mmol/L (-3.0-3); Arterial COHb 0.9 % (0.0-3.0); Arterial Fraction of Oxyhgb 93.5 % (93.0-99.0); Arterial HCO3 17.6 mmol/L (22.0-26.0); Arterial MetHb 0.1 % (0.0-1.5); Arterial Total Hemglobin 9.9 g/dl (12.0-18.0); Blood Gas PS 8; MODE VENT - CPAP
--- NOTE | 2017-01-15 12:28 | CONS ---
Date/Time of Note Date/Time of Note DATE: 01/15/17 TIME: 12:25 Consult Date/Type/Reason Admit Date/Time Jan 02, 2017 at 19:30 Initial Consult Date 01/07/17 Type of Consultation: Pulm/CCM Ordering Provider: BRAEDEN LUNSFORD MD Subjective Doing well on CPAP/PS. Awake and following commands. FiO2 30% and RSBI is 45. Objective Vital Signs Date Time Temp Pulse Resp B/P Pulse Ox O2 Delivery O2 Flow Rate FiO2 01/15/17 12:00 98.1 96 18 136/80 99 Mechanical Ventilator 01/15/17 11:00 30 Intake and Output 01/14/17 01/14/17 01/15/17 15:00 23:00 07:00 Intake Total 1202.50 ml 790.0 ml 687.5 ml Output Total 900 ml 1215 ml 1200 ml Balance 302.50 ml -425.0 ml -512.5 ml Exam HEENT: Neck supple; no JVD; no LAD; + ET tube CVS: RRR, S1 and S2 CHEST: Clear ABD: Soft, NT, + BS, distended EXT: No c/c; + edema Results/Medications Result Diagram: 01/15/17 0415 01/15/17 0415 Results 24 hrs Laboratory Tests Test 01/14/17 13:07 01/14/17 15:37 01/14/17 17:00 01/14/17 21:00 Bedside Glucose 180 182 169 Sodium Level 150 H Potassium Level 3.1 L Chloride Level 116 H Carbon Dioxide Level 18 L Anion Gap 19 H Blood Urea Nitrogen 105 H Creatinine 3.32 H Glucose Level 201 Calcium Level 9.2 Test 01/15/17 00:22 01/15/17 04:15 01/15/17 04:50 01/15/17 04:53 Bedside Glucose 177 372 H 150 White Blood Count 22.4 H Red Blood Count 2.20 L Hemoglobin 7.7 L Hematocrit 24.0 L Mean Corpuscular Volume 109.1 H Mean Corpuscular Hemoglobin 35.0 H Mean Corpuscular Hemoglobin Concent 32.1 Red Cell Distribution Width 23.7 H Platelet Count 81 L Mean Platelet Volume 12.7 H Neutrophils % 86.2 H Lymphocytes % 3.0 L Monocytes % 5.7 Eosinophils % 0.0 Basophils % 0.1 Nucleated Red Blood Cells % 0.1 H Neutrophils # 19.3 H Lymphocytes # 0.7 L Monocytes # 1.3 H Eosinophils # 0.0 Basophils # 0.0 Nucleated Red Blood Cells # 0.0 Sodium Level 143 Potassium Level 3.2 L Chloride Level 114 H Carbon Dioxide Level 19 L Anion Gap 13 Blood Urea Nitrogen 97 H Creatinine 2.84 H Glucose Level 386 #H Lactic Acid Level 1.5 Calcium Level 8.8 Phosphorus Level 4.7 Magnesium Level 2.2 Total Bilirubin 23.2 H Direct Bilirubin 21.20 *H Indirect Bilirubin 2.0 H Aspartate Amino Transf (AST/SGOT) 194 H Alanine Aminotransferase (ALT/SGPT) 53 Alkaline Phosphatase 273 H Ammonia 52 H Total Protein 6.3 Albumin 2.5 L Globulin 3.80 H Albumin/Globulin Ratio 0.65 Amylase Level 177 H Lipase 557 H Test 01/15/17 05:00 01/15/17 08:34 01/15/17 11:20 Blood Gas Specimen Source Blood arterial Blood arterial Arterial Blood Date Drawn 01/15/2017 4:39:00 AM 01/15/2017 11:10:57 AM Arterial Blood pH (Temp corrected) 7.397 7.399 Arterial Blood pCO2 (Temp correct) 27.4 L 29.1 L Arterial Blood pO2 (Temp corrected) 104.2 H 79.4 L Arterial Blood HCO3 16.5 L 17.6 L Arterial Blood Base Excess -7.3 L -6.2 L Arterial Blood Oxygen Saturation 97.6 94.4 L Prateek Test ACCEPTAB ACCEPTAB Arterial Blood Gas Puncture Site Right Radial Right Radial Arterial Blood Carboxyhemoglobin 1.7 0.9 Arterial Blood Methemoglobin 0 0.1 Blood Gas A-a O2 Differential 77.5 H 100.3 H Oxyhemoglobin Percent 95.9 93.5 Total Hemoglobin 8.9 L 9.9 L Blood Gas Temperature 37.0 37.0 Blood Gas Respiration Rate 16.0 Blood Gas Actual Respiration Rate 20 21 Blood Gas Modality VENT - AC VENT - CPAP FiO2 30.0 30.0 Blood Gas Tidal Volume 500.0 640.0 Blood Gas Low PEEP Setting 5.0 5.0 Blood Gas Inspiratory Pressure 31.0 Blood Gas Notified Whom YAYA HENDRIX Blood Gas Notified Time 01/15/2017 4:50:00 AM 01/15/2017 11:28:00 AM Bedside Glucose 144 Blood Gas Pressure Support 8 Medications Current Medications Ondansetron HCl (Zofran Inj) 4 mg Q6H PRN IV NAUSEA AND/OR VOMITING Last administered on 01/03/17 14:52; Admin Dose 4 MG; Start 01/02/17 at 23:00 Docusate Sodium (Colace) 100 mg Q12H PRN PO CONSTIPATION; Start 01/02/17 at 23: 00 Rifaximin (Xifaxan) 550 mg BID PO Last administered on 01/15/17 08:34; Admin Dose 550 MG; Start 01/04/17 at 11:00 Metoclopramide HCl (Reglan) 10 mg Q6 IV Last administered on 01/15/17 05:39; Admin Dose 10 MG; Start 01/05/17 at 00:00 Lorazepam (Ativan) 1 mg Q2 PRN IV ANXIETY Last administered on 01/15/17 03:03 ; Admin Dose 1 MG; Start 01/05/17 at 13:00 IV Flush (NS 10 ml) 10 ml PRN PRN IV IV PROTOCOL; Start 01/05/17 at 18:30 Diagnostic Test (Pha) (Accu-Chek) 1 ea Q4 XX Last administered on 01/15/17 08: 35; Admin Dose 1 EA; Start 01/06/17 at 17:00 Diazepam (Valium) 10 mg Q2H PRN IV ANXIETY Last administered on 01/08/17 01:43 ; Admin Dose 10 MG; Start 01/07/17 at 12:00 Pantoprazole 40 mg 40 mg DAILY IV Last administered on 01/15/17 08:34; Admin Dose 40 MG; Start 01/09/17 at 09:00 Propofol 100 ml @ 2.217 mls/ hr Q12H IV Last administered on 01/13/17 22:37; Admin Dose 4.434 MLS/HR; Start 01/09/17 at 10:00 Meropenem/Sodium Chloride 50 ml @ 100 mls/hr Q12 IVPB Last administered on 11:07; Admin Dose 100 MLS/HR; Start 01/09/17 at 21:00 Total Parenteral Nutrition 1,000 ml @ 40 mls/hr Q24H IV Last administered on 15:02; Admin Dose 40 MLS/HR; Start 01/09/17 at 18:00 Octreotide Acetate/Sodium Chloride (Sandostatin/NS) 50 ml @ 2.5 mls/hr Q20H IV Last administered on 01/14/17 18:45; Admin Dose 2.5 MLS/HR; Start 01/11/17 at 10:00 Prednisolone (Prelone (Ped)) 40 mg DAILY PO Last administered on 01/15/17 08: 35; Admin Dose 40 MG; Start 01/12/17 at 09:00 Citric Acid/ Sodium Citrate (Bicitra) 30 ml TID NGT Last administered on 08:34; Admin Dose 30 ML; Start 01/12/17 at 09:00 Lactulose 20 gm 20 gm TID NGT Last administered on 01/15/17 08:34; Admin Dose 20 GM; Start 01/12/17 at 13:00 Vancomycin HCl/ Dextrose (Vancocin/D5W) 250 ml @ 83.333 mls/ hr Q48H IVPB Last administered on 01/14/17 10:16; Admin Dose 83.333 MLS/HR; Start 01/14/17 at 10:00 Nystatin 5 ml 5 ml QID PO Last administered on 01/15/17 08:35; Admin Dose 5 ML ; Start 01/13/17 at 17:00 Potassium Chloride/Sodium Chloride (1/2 NS + KCl 20 Meq) 1,000 ml @ 70 mls/hr [id number] IV Last administered on 01/15/17 08:34; Admin Dose 70 MLS/HR; Start 01/15/17 at 07:00; Stop 01/15/17 at 21:17 Assessment/Plan Additional Assessment/Plan IMP: 1. Decompensated liver failure in setting of acute alcoholic hepatitis--> slowly improving despite a MELD of ~ 40 2. ARF--ATN vs. HRS--> improving 3. Hepatic Encephalopathy 4. VDRF 5. Anemia--s/p UGIB 6. Partial SBO 7. Pancreatitis RECS: 1. Extubate to NC 2. Follow urine output 3. Continue Rifaximin and lactulose 4. PT/OT eval 5. May reassess ability to use bowel soon and D/C TPN 35 min cc time AUGUST WARNER MD Jan 15, 2017 12:28
--- NOTE | 2017-01-15 13:22 | CONS ---
Date/Time of Note Date/Time of Note DATE: 01/15/17 TIME: 13:21 Assessment/Plan Assessment/Plan Additional Assessment/Plan Additional Assessment/Plan IMPRESSION: 1. Delirium tremens. The patient is now intubated and on propofol 2. Hepatic encephalopathy. Ammonia is 47 partly related to propofol and Ativan 3. Alcoholic liver disease. Patient is on prednisolone 4. Pancreatitis. Amylase has come down . Lipase is down 5. Leukocytosis. WBC count is coming down slowly 6. Renal insufficiency. Though the urine output is good. Renal function has improved a lot with good urine output. Creatinine is coming down. Now it is 3.2 7. Pedal edema and ascites, reducing 8. Thrombocytopenia 9. Ileus, small bowel follow-through was negative 10. Patient's gastroparesis might be related to uremia Plan 1. Continue prednisolone 2. Discontinue all flushes through NG tube, which is increasing fluid overload 3. Patient is off propofol for more than 8 hours, he is moving all his extremities and responding to his name. Patient is also not tachycardic. I discussed with nuclear equipment test engineer to try the weaning process. 4. Reduce IV fluid since patient is third spacing, may need albumin. 5. Since the kidney function is improving and the urine output is good I would continue octreotide 6. We will monitor WBC, INR, total bilirubin, and creatinine on a regular basis 7. I had [id number] discussion with the mother and the family members and also with the glost kiln placer and nuclear equipment test engineer. 8. If bilirubin does not come down I may add pentoxifylline 400 mg once a day 9. 70 successfully extubated. Will continue with the present care. Consultation Date/Type/Reason Admit Date/Time Jan 02, 2017 at 19:30 Type of Consultation: Pulm/CCM Referring Provider: BRAEDEN LUNSFORD MD 24 HR Interval Summary Free Text/Dictation Patient is successfully extubated. He is asking for ice chips. Exam/Review of Systems Vital Signs Vitals Vital Signs Date Time Temp Pulse Resp B/P Pulse Ox O2 Delivery O2 Flow Rate FiO2 01/15/17 12:35 99 4.0 01/15/17 12:00 98 01/15/17 12:00 98.1 18 136/80 Mechanical Ventilator 01/15/17 11:00 30 Intake and Output 01/14/17 01/14/17 01/15/17 15:00 23:00 07:00 Intake Total 1202.50 ml 790.0 ml 687.5 ml Output Total 900 ml 1215 ml 1200 ml Balance 302.50 ml -425.0 ml -512.5 ml Exam Respiratory: clear to auscultation, normal air movement Cardiovascular: nl pulses, regular rate and rhythm Gastrointestinal: ascites, distended Musculoskeletal: nl extremities to inspection, nl gait and stance Extremities: edema Results Result Diagram: 01/15/17 0415 01/15/17 0415 Results 24 hrs Laboratory Tests Test 01/14/17 15:37 01/14/17 17:00 01/14/17 21:00 01/15/17 00:22 Sodium Level 150 H Potassium Level 3.1 L Chloride Level 116 H Carbon Dioxide Level 18 L Anion Gap 19 H Blood Urea Nitrogen 105 H Creatinine 3.32 H Glucose Level 201 Calcium Level 9.2 Bedside Glucose 182 169 177 Test 01/15/17 04:15 01/15/17 04:50 01/15/17 04:53 01/15/17 05:00 White Blood Count 22.4 H Red Blood Count 2.20 L Hemoglobin 7.7 L Hematocrit 24.0 L Mean Corpuscular Volume 109.1 H Mean Corpuscular Hemoglobin 35.0 H Mean Corpuscular Hemoglobin Concent 32.1 Red Cell Distribution Width 23.7 H Platelet Count 81 L Mean Platelet Volume 12.7 H Neutrophils % 86.2 H Lymphocytes % 3.0 L Monocytes % 5.7 Eosinophils % 0.0 Basophils % 0.1 Nucleated Red Blood Cells % 0.1 H Neutrophils # 19.3 H Lymphocytes # 0.7 L Monocytes # 1.3 H Eosinophils # 0.0 Basophils # 0.0 Nucleated Red Blood Cells # 0.0 Sodium Level 143 Potassium Level 3.2 L Chloride Level 114 H Carbon Dioxide Level 19 L Anion Gap 13 Blood Urea Nitrogen 97 H Creatinine 2.84 H Glucose Level 386 #H Lactic Acid Level 1.5 Calcium Level 8.8 Phosphorus Level 4.7 Magnesium Level 2.2 Total Bilirubin 23.2 H Direct Bilirubin 21.20 *H Indirect Bilirubin 2.0 H Aspartate Amino Transf (AST/SGOT) 194 H Alanine Aminotransferase (ALT/SGPT) 53 Alkaline Phosphatase 273 H Ammonia 52 H Total Protein 6.3 Albumin 2.5 L Globulin 3.80 H Albumin/Globulin Ratio 0.65 Amylase Level 177 H Lipase 557 H Bedside Glucose 372 H 150 Blood Gas Specimen Source Blood arterial Arterial Blood Date Drawn 01/15/2017 4:39:00 AM Arterial Blood pH (Temp corrected) 7.397 Arterial Blood pCO2 (Temp correct) 27.4 L Arterial Blood pO2 (Temp corrected) 104.2 H Arterial Blood HCO3 16.5 L Arterial Blood Base Excess -7.3 L Arterial Blood Oxygen Saturation 97.6 Prateek Test ACCEPTAB Arterial Blood Gas Puncture Site Right Radial Arterial Blood Carboxyhemoglobin 1.7 Arterial Blood Methemoglobin 0 Blood Gas A-a O2 Differential 77.5 H Oxyhemoglobin Percent 95.9 Total Hemoglobin 8.9 L Blood Gas Temperature 37.0 Blood Gas Respiration Rate 16.0 Blood Gas Actual Respiration Rate 20 Blood Gas Modality VENT - AC FiO2 30.0 Blood Gas Tidal Volume 500.0 Blood Gas Low PEEP Setting 5.0 Blood Gas Inspiratory Pressure 31.0 Blood Gas Notified Whom LW Blood Gas Notified Time 01/15/2017 4:50:00 AM Test 01/15/17 08:34 01/15/17 11:20 Bedside Glucose 144 Blood Gas Specimen Source Blood arterial Arterial Blood Date Drawn 01/15/2017 11:10:57 AM Arterial Blood pH (Temp corrected) 7.399 Arterial Blood pCO2 (Temp correct) 29.1 L Arterial Blood pO2 (Temp corrected) 79.4 L Arterial Blood HCO3 17.6 L Arterial Blood Base Excess -6.2 L Arterial Blood Oxygen Saturation 94.4 L Prateek Test ACCEPTAB Arterial Blood Gas Puncture Site Right Radial Arterial Blood Carboxyhemoglobin 0.9 Arterial Blood Methemoglobin 0.1 Blood Gas A-a O2 Differential 100.3 H Oxyhemoglobin Percent 93.5 Total Hemoglobin 9.9 L Blood Gas Temperature 37.0 Blood Gas Actual Respiration Rate 21 Blood Gas Modality VENT - CPAP FiO2 30.0 Blood Gas Tidal Volume 640.0 Blood Gas Low PEEP Setting 5.0 Blood Gas Pressure Support 8 Blood Gas Notified Whom Blood Gas Notified Time 01/15/2017 11:28:00 AM Medications Medications Current Medications Ondansetron HCl (Zofran Inj) 4 mg Q6H PRN IV NAUSEA AND/OR VOMITING Last administered on 01/03/17t 14:52; Admin Dose 4 MG; Start 01/02/17 at 23:00 Docusate Sodium (Colace) 100 mg Q12H PRN PO CONSTIPATION; Start 01/02/17 at 23: 00 Rifaximin (Xifaxan) 550 mg BID PO Last administered on 01/15/17 08:34; Admin Dose 550 MG; Start 01/04/17 at 11:00 Metoclopramide HCl (Reglan) 10 mg Q6 IV Last administered on 01/15/17 05:39; Admin Dose 10 MG; Start 01/05/17 at 00:00 Lorazepam (Ativan) 1 mg Q2 PRN IV ANXIETY Last administered on 01/15/17 03:03 ; Admin Dose 1 MG; Start 01/05/17 at 13:00 IV Flush (NS 10 ml) 10 ml PRN PRN IV IV PROTOCOL; Start 01/05/17 at 18:30 Diagnostic Test (Pha) (Accu-Chek) 1 ea Q4 XX Last administered on 01/15/17 08: 35; Admin Dose 1 EA; Start 01/06/17 at 17:00 Diazepam (Valium) 10 mg Q2H PRN IV ANXIETY Last administered on 01/08/17 01:43 ; Admin Dose 10 MG; Start 01/07/17 at 12:00 Pantoprazole 40 mg 40 mg DAILY IV Last administered on 01/15/17 08:34; Admin Dose 40 MG; Start 01/09/17 at 09:00 Propofol 100 ml @ 2.217 mls/ hr Q12H IV Last administered on 01/13/17 22:37; Admin Dose 4.434 MLS/HR; Start 01/09/17 at 10:00 Meropenem/Sodium Chloride 50 ml @ 100 mls/hr Q12 IVPB Last administered on 11:07; Admin Dose 100 MLS/HR; Start 01/09/17 at 21:00 Total Parenteral Nutrition 1,000 ml @ 40 mls/hr Q24H IV Last administered on 15:02; Admin Dose 40 MLS/HR; Start 01/09/17 at 18:00 Octreotide Acetate/Sodium Chloride (Sandostatin/NS) 50 ml @ 2.5 mls/hr Q20H IV Last administered on 01/14/17 18:45; Admin Dose 2.5 MLS/HR; Start 01/11/17 at 10:00 Prednisolone (Prelone (Ped)) 40 mg DAILY PO Last administered on 01/15/17 08: 35; Admin Dose 40 MG; Start 01/12/17 at 09:00 Citric Acid/ Sodium Citrate (Bicitra) 30 ml TID NGT Last administered on 08:34; Admin Dose 30 ML; Start 01/12/17 at 09:00 Lactulose 20 gm 20 gm TID NGT Last administered on 01/15/17 08:34; Admin Dose 20 GM; Start 01/12/17 at 13:00 Vancomycin HCl/ Dextrose (Vancocin/D5W) 250 ml @ 83.333 mls/ hr Q48H IVPB Last administered on 01/14/17 10:16; Admin Dose 83.333 MLS/HR; Start 01/14/17 at 10:00 Nystatin 5 ml 5 ml QID PO Last administered on 01/15/17 08:35; Admin Dose 5 ML ; Start 01/13/17 at 17:00 Potassium Chloride/Sodium Chloride (1/2 NS + KCl 20 Meq) 1,000 ml @ 70 mls/hr [id number] IV Last administered on 01/15/17 08:34; Admin Dose 70 MLS/HR; Start 01/15/17 at 07:00; Stop 01/15/17 at 21:17 LAURA CORDERO MD Jan 15, 2017 13:22
[2017-01-15] MEDS: OCTREOTIDE 500 MCG in SOD CHLORIDE 0.9% 49 ML IV SCH (13:35)
--- NOTE | 2017-01-15 14:12 | CONS ---
Date/Time of Note Date/Time of Note DATE: 01/15/17 TIME: 14:04 Assessment/Plan Assessment/Plan Chief Complaint/Hosp Course ID PROGRESS NOTE TOTAL ABX DAY # 6 CURRENT ABX=> Vanco IV + Merrem + Cancidas (dC'd 01/13) 24H INTERVAL SUMMARY * No fevers, WBC stable, repeat ETT secretions (+)C.Albicans, * Critically ill, orally intubated, moves head to verbal stimuli, jaundice * 01/15/17 CXR: IMPRESSION: 1. Stable and satisfactory position life- support lines. 2. Bibasilar subsegmental atelectasis, unchanged. GENERAL: VSS, NAD HEENT: Unremarkable NECK: Trach midline, full ROM CHEST: Rise symmetrical without dyspnea on observation ABDOMEN: Soft, EXTREMITIES: Warm,(+) moves extremities SKIN: No diaphoresis, no rash ID ASSESSMENT: 36 yo M admit with: 1. Hypotension/shock ->Hypovolemic due to acute UGIB from esophageal varices, (+) Presumptive SBP Sepsis + ASP PNA * B/ P better * Leukocytosis ->Multifactorial: likely SBP, ASP Pneumonitis, (+)Reactive SRIS, (+)partial steroid demargination 2. Acute alcoholic pancreatitis => SIRS w/ leukocytosis * CT w/(+)Diffuse mesenteric edema 3. Acute respiratory failure, possibly aspiration event. 4. Acute renal failure with severe acidosis. 5. Paralytic ileus. 6. History of alcohol (ETOH) abuse, withdrawal 7. Multiple electrolyte imbalance. INVASIVES: ETT, NGT, FC, PICC (01/05/17) ABX ALLERGY: NKDA TOTAL ABX DAY # 6 CURRENT ABX=> Vanco IV + Merrem + Cancidas (dC'd 01/13) ID PLAN 1. Continue current ABX & await clinical improvement 2. Consider taper Merrem to Ceftriaxone, no evidence necrotic pancreatitis, sputum (-) / . Problems: Consultation Date/Type/Reason Admit Date/Time Jan 02, 2017 at 19:30 Initial Consult Date 01/07/17 Type of Consultation: ID Referring Provider: BRAEDEN LUNSFORD MD Exam/Review of Systems Vital Signs Vitals Vital Signs Date Time Temp Pulse Resp B/P Pulse Ox O2 Delivery O2 Flow Rate FiO2 01/15/17 12:35 99 4.0 01/15/17 12:00 98 01/15/17 12:00 98.1 18 136/80 Mechanical Ventilator 01/15/17 11:00 30 Intake and Output 01/14/17 01/14/17 01/15/17 15:00 23:00 07:00 Intake Total 1202.50 ml 790.0 ml 687.5 ml Output Total 900 ml 1215 ml 1200 ml Balance 302.50 ml -425.0 ml -512.5 ml Results Result Diagram: 01/15/17 0415 01/15/17 0415 Results 24 hrs Laboratory Tests Test 01/14/17 15:37 01/14/17 17:00 01/14/17 21:00 01/15/17 00:22 Sodium Level 150 H Potassium Level 3.1 L Chloride Level 116 H Carbon Dioxide Level 18 L Anion Gap 19 H Blood Urea Nitrogen 105 H Creatinine 3.32 H Glucose Level 201 Calcium Level 9.2 Bedside Glucose 182 169 177 Test 01/15/17 04:15 01/15/17 04:50 01/15/17 04:53 01/15/17 05:00 White Blood Count 22.4 H Red Blood Count 2.20 L Hemoglobin 7.7 L Hematocrit 24.0 L Mean Corpuscular Volume 109.1 H Mean Corpuscular Hemoglobin 35.0 H Mean Corpuscular Hemoglobin Concent 32.1 Red Cell Distribution Width 23.7 H Platelet Count 81 L Mean Platelet Volume 12.7 H Neutrophils % 86.2 H Lymphocytes % 3.0 L Monocytes % 5.7 Eosinophils % 0.0 Basophils % 0.1 Nucleated Red Blood Cells % 0.1 H Neutrophils # 19.3 H Lymphocytes # 0.7 L Monocytes # 1.3 H Eosinophils # 0.0 Basophils # 0.0 Nucleated Red Blood Cells # 0.0 Sodium Level 143 Potassium Level 3.2 L Chloride Level 114 H Carbon Dioxide Level 19 L Anion Gap 13 Blood Urea Nitrogen 97 H Creatinine 2.84 H Glucose Level 386 #H Lactic Acid Level 1.5 Calcium Level 8.8 Phosphorus Level 4.7 Magnesium Level 2.2 Total Bilirubin 23.2 H Direct Bilirubin 21.20 *H Indirect Bilirubin 2.0 H Aspartate Amino Transf (AST/SGOT) 194 H Alanine Aminotransferase (ALT/SGPT) 53 Alkaline Phosphatase 273 H Ammonia 52 H Total Protein 6.3 Albumin 2.5 L Globulin 3.80 H Albumin/Globulin Ratio 0.65 Amylase Level 177 H Lipase 557 H Bedside Glucose 372 H 150 Blood Gas Specimen Source Blood arterial Arterial Blood Date Drawn 01/15/2017 4:39:00 AM Arterial Blood pH (Temp corrected) 7.397 Arterial Blood pCO2 (Temp correct) 27.4 L Arterial Blood pO2 (Temp corrected) 104.2 H Arterial Blood HCO3 16.5 L Arterial Blood Base Excess -7.3 L Arterial Blood Oxygen Saturation 97.6 Prateek Test ACCEPTAB Arterial Blood Gas Puncture Site Right Radial Arterial Blood Carboxyhemoglobin 1.7 Arterial Blood Methemoglobin 0 Blood Gas A-a O2 Differential 77.5 H Oxyhemoglobin Percent 95.9 Total Hemoglobin 8.9 L Blood Gas Temperature 37.0 Blood Gas Respiration Rate 16.0 Blood Gas Actual Respiration Rate 20 Blood Gas Modality VENT - AC FiO2 30.0 Blood Gas Tidal Volume 500.0 Blood Gas Low PEEP Setting 5.0 Blood Gas Inspiratory Pressure 31.0 Blood Gas Notified Whom LW Blood Gas Notified Time 01/15/2017 4:50:00 AM Test 01/15/17 08:34 01/15/17 11:20 01/15/17 13:37 Bedside Glucose 144 157 Blood Gas Specimen Source Blood arterial Arterial Blood Date Drawn 01/15/2017 11:10:57 AM Arterial Blood pH (Temp corrected) 7.399 Arterial Blood pCO2 (Temp correct) 29.1 L Arterial Blood pO2 (Temp corrected) 79.4 L Arterial Blood HCO3 17.6 L Arterial Blood Base Excess -6.2 L Arterial Blood Oxygen Saturation 94.4 L Prateek Test ACCEPTAB Arterial Blood Gas Puncture Site Right Radial Arterial Blood Carboxyhemoglobin 0.9 Arterial Blood Methemoglobin 0.1 Blood Gas A-a O2 Differential 100.3 H Oxyhemoglobin Percent 93.5 Total Hemoglobin 9.9 L Blood Gas Temperature 37.0 Blood Gas Actual Respiration Rate 21 Blood Gas Modality VENT - CPAP FiO2 30.0 Blood Gas Tidal Volume 640.0 Blood Gas Low PEEP Setting 5.0 Blood Gas Pressure Support 8 Blood Gas Notified Whom Blood Gas Notified Time 01/15/2017 11:28:00 AM Medications Medications Current Medications Ondansetron HCl (Zofran Inj) 4 mg Q6H PRN IV NAUSEA AND/OR VOMITING Last administered on 01/03/17t 14:52; Admin Dose 4 MG; Start 01/02/17 at 23:00 Docusate Sodium (Colace) 100 mg Q12H PRN PO CONSTIPATION; Start 01/02/17 at 23: 00 Rifaximin (Xifaxan) 550 mg BID PO Last administered on 01/15/17 08:34; Admin Dose 550 MG; Start 01/04/17 at 11:00 Metoclopramide HCl (Reglan) 10 mg Q6 IV Last administered on 01/15/17 13:27; Admin Dose 10 MG; Start 01/05/17 at 00:00 Lorazepam (Ativan) 1 mg Q2 PRN IV ANXIETY Last administered on 01/15/17 03:03 ; Admin Dose 1 MG; Start 01/05/17 at 13:00 IV Flush (NS 10 ml) 10 ml PRN PRN IV IV PROTOCOL; Start 01/05/17 at 18:30 Diagnostic Test (Pha) (Accu-Chek) 1 ea Q4 XX Last administered on 01/15/17 13: 27; Admin Dose 1 EA; Start 01/06/17 at 17:00 Diazepam (Valium) 10 mg Q2H PRN IV ANXIETY Last administered on 01/08/17 01:43 ; Admin Dose 10 MG; Start 01/07/17 at 12:00 Pantoprazole 40 mg 40 mg DAILY IV Last administered on 01/15/17 08:34; Admin Dose 40 MG; Start 01/09/17 at 09:00 Propofol 100 ml @ 2.217 mls/ hr Q12H IV Last administered on 01/13/17 22:37; Admin Dose 4.434 MLS/HR; Start 01/09/17 at 10:00 Meropenem/Sodium Chloride 50 ml @ 100 mls/hr Q12 IVPB Last administered on 11:07; Admin Dose 100 MLS/HR; Start 01/09/17 at 21:00 Total Parenteral Nutrition 1,000 ml @ 40 mls/hr Q24H IV Last administered on 15:02; Admin Dose 40 MLS/HR; Start 01/09/17 at 18:00 Octreotide Acetate/Sodium Chloride (Sandostatin/NS) 50 ml @ 2.5 mls/hr Q20H IV Last administered on 01/15/17 13:35; Admin Dose 2.5 MLS/HR; Start 01/11/17 at 10:00 Prednisolone (Prelone (Ped)) 40 mg DAILY PO Last administered on 01/15/17 08: 35; Admin Dose 40 MG; Start 01/12/17 at 09:00 Citric Acid/ Sodium Citrate (Bicitra) 30 ml TID NGT Last administered on 13:27; Admin Dose 30 ML; Start 01/12/17 at 09:00 Lactulose 20 gm 20 gm TID NGT Last administered on 01/15/17 13:27; Admin Dose 20 GM; Start 01/12/17 at 13:00 Vancomycin HCl/ Dextrose (Vancocin/D5W) 250 ml @ 83.333 mls/ hr Q48H IVPB Last administered on 01/14/17 10:16; Admin Dose 83.333 MLS/HR; Start 01/14/17 at 10:00 Nystatin 5 ml 5 ml QID PO Last administered on 01/15/17 13:27; Admin Dose 5 ML ; Start 01/13/17 at 17:00 Potassium Chloride/Sodium Chloride (1/2 NS + KCl 20 Meq) 1,000 ml @ 70 mls/hr [id number] IV Last administered on 01/15/17 08:34; Admin Dose 70 MLS/HR; Start 01/15/17 at 07:00; Stop 01/15/17 at 21:17 DOE OVALLES NP Jan 15, 2017 14:11
--- NOTE | 2017-01-15 14:24 | PN ---
Date/Time of Note Date/Time of Note DATE: 01/15/17 TIME: 14:20 Assessment/Plan VTE Prophylaxis VTE Prophylaxis Intervention: contraindicated VTE Contraindication Reason: bleeding Lines/Catheters IV Catheter Type (from Nrsg): PICC Line Central line still needed: Yes Urinary Cath still in place: Yes Reason Cath still needed: urinary retention Assessment/Plan Chief Complaint/Hosp Course 36 y/o with # NICOLAS likely Oliguric ATN vs HRS, Cr peaked to 5.13 today trending down to 4.92> 4.2>3.2 >2.8 now , BUN 111( still elevated could be also component of prednisolone)>113> down to 90's # Acute on chronic liver failure likely Etoh abuse with elevated INR, Hyperbilirubenemia, low platelets, Bilirubin 22>21 # Hepatic encephalopathy with elevated Ammonia levels down to 47 improving # ETOH withdrawal on Ativan/librium tapered off # ETOH pancreatitis with Lipase 7690> trending down to 2000> trended down siginificantly # Non Gap Acidosis likely combination of renal failure and diarrhoea # Leukocytosis could be pancreatitis vs Alcholic hepatitis on +Vancomycin and Meropenam, Pt on Nystatin ( mellisa in gram stain) # Hypoxic Respiratory failure s/p Intubation now extubated on 01/15 # Thrombocytopenia # Anemia likely hemodilutional : no evidence of bleeding s/p EGD with gastritis and gastroparesis on PPI and Reglan # s/P EGD with gastritis and gastroparesis on Protonix and Reglan # Ileus s/p Small bowel follow thru which is negative, f/u Surgery , NG feeding held Recs - Change fluids to 1/2 NS with KCL at 50 - Recheck BMP - Hold FWF per Dr Mercer and TF per Dr Mercer. c/w NG tube - c/w Bictra 30 ml tid for acidosis - c/w Meropenam/Vancomycin/nystatin per I.D ( renally dosed) - c/w Prednisolone 40 and octreotide gtt ( 5) , per Dr Mercer, might start trental - c/w TPN at 40 - Monitor UOP very closely - c/w ICU care - Spoke to mother at the bedside and discussed with her action, treatment and plan and discussed with Dr Mercer Problems: Subjective 24 Hr Interval Summary Free Text/Dictation s/p Extubation this afternoon Pt opens eyes, responding to questions UOP 80-100 cc/hr Exam/Review of Systems Vital Signs Vitals Vital Signs Date Time Temp Pulse Resp B/P Pulse Ox O2 Delivery O2 Flow Rate FiO2 01/15/17 14:00 91 23 137/78 100 Mechanical Ventilator 01/15/17 12:35 4.0 01/15/17 12:00 98.1 01/15/17 11:00 30 Intake and Output 01/14/17 01/14/17 01/15/17 15:00 23:00 07:00 Intake Total 1202.50 ml 790.0 ml 687.5 ml Output Total 900 ml 1215 ml 1200 ml Balance 302.50 ml -425.0 ml -512.5 ml Exam Gen:s/p extubation , follows commands HEENT: blood tinged teeth, Scleral icterus Neck:supple CVS: Regular rate and rthym Lungs: decreased breath sounds b/l Abdomen: distended ++, faint bowel sounds Ext: + edema ble minaya draining more yellow urine Rectal tube with stool output Results Result Diagram: 01/15/17 0415 01/15/17 0415 Results 24 hrs Laboratory Tests Test 01/14/17 15:37 01/14/17 17:00 01/14/17 21:00 01/15/17 00:22 Sodium Level 150 H Potassium Level 3.1 L Chloride Level 116 H Carbon Dioxide Level 18 L Anion Gap 19 H Blood Urea Nitrogen 105 H Creatinine 3.32 H Glucose Level 201 Calcium Level 9.2 Bedside Glucose 182 169 177 Test 01/15/17 04:15 01/15/17 04:50 01/15/17 04:53 01/15/17 05:00 White Blood Count 22.4 H Red Blood Count 2.20 L Hemoglobin 7.7 L Hematocrit 24.0 L Mean Corpuscular Volume 109.1 H Mean Corpuscular Hemoglobin 35.0 H Mean Corpuscular Hemoglobin Concent 32.1 Red Cell Distribution Width 23.7 H Platelet Count 81 L Mean Platelet Volume 12.7 H Neutrophils % 86.2 H Lymphocytes % 3.0 L Monocytes % 5.7 Eosinophils % 0.0 Basophils % 0.1 Nucleated Red Blood Cells % 0.1 H Neutrophils # 19.3 H Lymphocytes # 0.7 L Monocytes # 1.3 H Eosinophils # 0.0 Basophils # 0.0 Nucleated Red Blood Cells # 0.0 Sodium Level 143 Potassium Level 3.2 L Chloride Level 114 H Carbon Dioxide Level 19 L Anion Gap 13 Blood Urea Nitrogen 97 H Creatinine 2.84 H Glucose Level 386 #H Lactic Acid Level 1.5 Calcium Level 8.8 Phosphorus Level 4.7 Magnesium Level 2.2 Total Bilirubin 23.2 H Direct Bilirubin 21.20 *H Indirect Bilirubin 2.0 H Aspartate Amino Transf (AST/SGOT) 194 H Alanine Aminotransferase (ALT/SGPT) 53 Alkaline Phosphatase 273 H Ammonia 52 H Total Protein 6.3 Albumin 2.5 L Globulin 3.80 H Albumin/Globulin Ratio 0.65 Amylase Level 177 H Lipase 557 H Bedside Glucose 372 H 150 Blood Gas Specimen Source Blood arterial Arterial Blood Date Drawn 01/15/2017 4:39:00 AM Arterial Blood pH (Temp corrected) 7.397 Arterial Blood pCO2 (Temp correct) 27.4 L Arterial Blood pO2 (Temp corrected) 104.2 H Arterial Blood HCO3 16.5 L Arterial Blood Base Excess -7.3 L Arterial Blood Oxygen Saturation 97.6 Prateek Test ACCEPTAB Arterial Blood Gas Puncture Site Right Radial Arterial Blood Carboxyhemoglobin 1.7 Arterial Blood Methemoglobin 0 Blood Gas A-a O2 Differential 77.5 H Oxyhemoglobin Percent 95.9 Total Hemoglobin 8.9 L Blood Gas Temperature 37.0 Blood Gas Respiration Rate 16.0 Blood Gas Actual Respiration Rate 20 Blood Gas Modality VENT - AC FiO2 30.0 Blood Gas Tidal Volume 500.0 Blood Gas Low PEEP Setting 5.0 Blood Gas Inspiratory Pressure 31.0 Blood Gas Notified Whom LW Blood Gas Notified Time 01/15/2017 4:50:00 AM Test 01/15/17 08:34 01/15/17 11:20 01/15/17 13:37 Bedside Glucose 144 157 Blood Gas Specimen Source Blood arterial Arterial Blood Date Drawn 01/15/2017 11:10:57 AM Arterial Blood pH (Temp corrected) 7.399 Arterial Blood pCO2 (Temp correct) 29.1 L Arterial Blood pO2 (Temp corrected) 79.4 L Arterial Blood HCO3 17.6 L Arterial Blood Base Excess -6.2 L Arterial Blood Oxygen Saturation 94.4 L Prateek Test ACCEPTAB Arterial Blood Gas Puncture Site Right Radial Arterial Blood Carboxyhemoglobin 0.9 Arterial Blood Methemoglobin 0.1 Blood Gas A-a O2 Differential 100.3 H Oxyhemoglobin Percent 93.5 Total Hemoglobin 9.9 L Blood Gas Temperature 37.0 Blood Gas Actual Respiration Rate 21 Blood Gas Modality VENT - CPAP FiO2 30.0 Blood Gas Tidal Volume 640.0 Blood Gas Low PEEP Setting 5.0 Blood Gas Pressure Support 8 Blood Gas Notified Whom CW Blood Gas Notified Time 01/15/2017 11:28:00 AM Medications Medications Current Medications Ondansetron HCl (Zofran Inj) 4 mg Q6H PRN IV NAUSEA AND/OR VOMITING Last administered on 01/03/17 14:52; Admin Dose 4 MG; Start 01/02/17 at 23:00 Docusate Sodium (Colace) 100 mg Q12H PRN PO CONSTIPATION; Start 01/02/17 at 23: 00 Rifaximin (Xifaxan) 550 mg BID PO Last administered on 01/15/17 08:34; Admin Dose 550 MG; Start 01/04/17 at 11:00 Metoclopramide HCl (Reglan) 10 mg Q6 IV Last administered on 01/15/17 13:27; Admin Dose 10 MG; Start 01/05/17 at 00:00 Lorazepam (Ativan) 1 mg Q2 PRN IV ANXIETY Last administered on 01/15/17 03:03 ; Admin Dose 1 MG; Start 01/05/17 at 13:00 IV Flush (NS 10 ml) 10 ml PRN PRN IV IV PROTOCOL; Start 01/05/17 at 18:30 Diagnostic Test (Pha) (Accu-Chek) 1 ea Q4 XX Last administered on 01/15/17 13: 27; Admin Dose 1 EA; Start 01/06/17 at 17:00 Diazepam (Valium) 10 mg Q2H PRN IV ANXIETY Last administered on 01/08/17 01:43 ; Admin Dose 10 MG; Start 01/07/17 at 12:00 Pantoprazole 40 mg 40 mg DAILY IV Last administered on 01/15/17 08:34; Admin Dose 40 MG; Start 01/09/17 at 09:00 Propofol 100 ml @ 2.217 mls/ hr Q12H IV Last administered on 01/13/17 22:37; Admin Dose 4.434 MLS/HR; Start 01/09/17 at 10:00 Meropenem/Sodium Chloride 50 ml @ 100 mls/hr Q12 IVPB Last administered on 11:07; Admin Dose 100 MLS/HR; Start 01/09/17 at 21:00 Total Parenteral Nutrition 1,000 ml @ 40 mls/hr Q24H IV Last administered on 15:02; Admin Dose 40 MLS/HR; Start 01/09/17 at 18:00 Octreotide Acetate/Sodium Chloride (Sandostatin/NS) 50 ml @ 2.5 mls/hr Q20H IV Last administered on 01/15/17 13:35; Admin Dose 2.5 MLS/HR; Start 01/11/17 at 10:00 Prednisolone (Prelone (Ped)) 40 mg DAILY PO Last administered on 01/15/17 08: 35; Admin Dose 40 MG; Start 01/12/17 at 09:00 Citric Acid/ Sodium Citrate (Bicitra) 30 ml TID NGT Last administered on 13:27; Admin Dose 30 ML; Start 01/12/17 at 09:00 Lactulose 20 gm 20 gm TID NGT Last administered on 01/15/17 13:27; Admin Dose 20 GM; Start 01/12/17 at 13:00 Vancomycin HCl/ Dextrose (Vancocin/D5W) 250 ml @ 83.333 mls/ hr Q48H IVPB Last administered on 01/14/17 10:16; Admin Dose 83.333 MLS/HR; Start 01/14/17 at 10:00 Nystatin 5 ml 5 ml QID PO Last administered on 01/15/17 13:27; Admin Dose 5 ML ; Start 01/13/17 at 17:00 Potassium Chloride/Sodium Chloride (1/2 NS + KCl 20 Meq) 1,000 ml @ 70 mls/hr [id number] IV Last administered on 01/15/17 08:34; Admin Dose 70 MLS/HR; Start 01/15/17 at 07:00 BRAEDEN LUNSFORD MD Jan 15, 2017 14:24
[2017-01-15] MEDS: TPN 1,000 ML IV SCH (17:02)
[2017-01-15 17:39] LABS: CALCIUM 9.3 mg/dl (8.4-10.2); CREATININE 2.75 mg/dl (0.61-1.24); POTASSIUM 3.5 mmol/L (3.5-5.1)
[2017-01-15] MEDS ORDERED: GLUCOSE GEL 15 GRAM TUBE BUCCAL PRN (18:30)
[2017-01-15] MEDS ORDERED: DEXTROSE 50% 50 ML SYRINGE IV PRN ×2 (18:30)
[2017-01-15] MEDS ORDERED: GLUCAGON 1 MG INJ IM PRN (18:30)
[2017-01-15] MEDS ORDERED: GLUCOSE GEL 15 GRAM TUBE PO PRN ×2 (18:30)
--- NOTE | 2017-01-15 22:46 | PN ---
Date/Time of Note Date/Time of Note DATE: 01/15/17 TIME: 22:43 Assessment/Plan Lines/Catheters IV Catheter Type (from [facility]): PICC Line Minaya in Place (from [facility]): Yes Assessment/Plan Chief Complaint/Hosp Course 1. Paralytic ileus 2nd acute processes. SBFT negative. + rectal tube output. Improved -Monitor 2. Acute on chronic alcoholic pancreatitis with peripancreatic fluid: amylase/ lipase improving -Supportive measures -Judicious fluid management -Trend labs -Encourage cessation 3. Acute GI bleed from gastritis and esophageal varices secondary to alcoholism ; no output from ng tube. Stable -Transfuse as needed -Supportive measures: ppi -Correct coagulopathy and platelet dysfunction 4. Anemia secondary to above -As above 5. Leukocytosis, multifactorial with SIRS and steroid therapy, ? infectious; on abx therapy -Close monitoring -Antibiotics for bacterial translocation 6. Alcoholic hepatitis with hepatosplenomegaly -Medical and GI optimization 7. Chronic alcohol abuse with Delirium Tremens; no tremors currently- sedated -Encourage cessation -Sedation/intubation 8. Subcapsular liver collection possible hematoma versus other -Monitor 9. Electrolyte imbalance -Correct with replacements and fluid management 10. Alcohol withdrawal with tachypnea, tachycardia and delirium tremens; sedated , improved -supportive 11. NICOLAS: output improving. Cr improving. -judicious fluids -avoid nephrotoxic meds 12. Pulm edema: ?2/ #11. Improved Thank you, Problems: Subjective 24 Hr Interval Summary Cr and uop improving. Rectal tube with + output. Ammonia improved. Continues on sedation and intubation. No fevers, seizures, rash, cough, vomiting, change in rhythm. Exam/Review of Systems Vital Signs Vitals Vital Signs Date Time Temp Pulse Resp B/P Pulse Ox O2 Delivery O2 Flow Rate FiO2 01/15/17 21:00 85 19 133/100 100 Nasal Cannula 2.0 01/15/17 16:00 98.3 01/15/17 11:00 30 Intake and Output 01/14/17 01/14/17 01/15/17 15:00 23:00 07:00 Intake Total 1202.50 ml 790.0 ml 687.5 ml Output Total 900 ml 1215 ml 1200 ml Balance 302.50 ml -425.0 ml -512.5 ml Exam Free Text/Dictation Constitutional: No distress, Not oriented. Psych: No nl mood/affect Head: atraumatic, normocephalic, No hematomas, No lacerations Eyes: EOMI, PERRL, icteric ENMT: nl external ears & nose, nl lips & teeth, ng tube without drainage. Mucosa pink and dry. Neck: non-tender, supple, No jvd Respiratory: No congested cough, No labored breathing Cardiovascular: No edema, No regular rate and rhythm: SR Gastrointestinal: soft, non-tender, min distended. No rebound or guarding Musculoskeletal: nl extremities to inspection, No joint tenderness Extremities: normal pulses, No calf tenderness, No cyanosis Neurological: Responsive Skin: rash or lesions (Jaundice), No diaphoresis, No nl turgor : minaya with luis output (improved; increased amount) Lymph: nl lymph nodes, nontender Results Result Diagram: 01/15/17 0415 01/15/17 1706 PETER TAMEZ MD Jan 15, 2017 22:46
[2017-01-15] MEDS: INSULIN ASPART [NOVOLOG] 3 ML PEN SC SCH (23:11)
[2017-01-16] VITALS (24 sets, daily range): BP systolic 118–144; BP diastolic 66–88; PULSE 70–86; RESP 10–28
[2017-01-16] MEDS: INSULIN ASPART [NOVOLOG] 3 ML PEN SC SCH ×6 (01:00→21:10)
[2017-01-16] MEDS: ACCU-CHEK XX SCH ×6 (01:20→21:00)
[2017-01-16] MEDS: LORAZEPAM 2 MG INJ IV PRN (01:48)
[2017-01-16 02:00] LABS: CREATININE 2.66 mg/dl (0.61-1.24); POTASSIUM 5.1 mmol/L (3.5-5.1)
[2017-01-16] MEDS ORDERED: ACCU-CHEK XX SCH (02:00)
[2017-01-16 04:11] LABS: ABNORMAL IP MESSAGE 1; BASOPHILS % 0.1 % (0.0-2.0); HEMATOCRIT 26.9 % (42.0-52.0); HEMOGLOBIN 8.6 g/dl (14.0-18.0); LYMPHOCYTES # 0.8 10^3/ul (0.8-2.9); LYMPHOCYTES % 2.8 % (15.0-51.0); MEAN CORPUSCULAR HEMOGLOBIN 34.8 pg (29.0-33.0); MEAN CORPUSCULAR VOLUME 108.9 fl (82.0-101.0); MEAN PLATELET VOLUME 12.6 fl (7.4-10.4); MONOCYTE # 1.5 10^3/ul (0.3-0.9); MONOCYTES % 5.3 % (0.0-11.0); NEUTROPHIL # 23.9 10^3/ul (1.6-7.5); NEUTROPHILS % 87.8 % (39.0-77.0); NUCLEATED RED BLOOD CELLS% 0.1 /100WBC (0.0-0.0); PLATELET COUNT 104 10^3/UL (140-415); POSITIVE DIFF @See below; RED BLOOD COUNT 2.47 10^6/ul (4.70-6.10); RED CELL DISTRIBUTION WIDTH 23.8 % (11.5-14.5); WHITE BLOOD COUNT 27.2 10^3/ul (4.8-10.8)
[2017-01-16 04:54] LABS: ALBUMIN 2.6 g/dl (3.3-4.9); ALBUMIN/GLOBULIN RATIO 0.57; BILIRUBIN,INDIRECT 2.1 mg/dl (0-1.1); BILIRUBIN,TOTAL 25.1 mg/dl (0.2-1.3); CALCIUM 9.5 mg/dl (8.4-10.2); CREATININE 2.61 mg/dl (0.61-1.24); POTASSIUM 3.1 mmol/L (3.5-5.1); TOTAL PROTEIN 7.1 g/dl (6.1-8.1)
[2017-01-16 04:58] LABS: MAGNESIUM 2.2 mg/dl (1.7-2.5)
[2017-01-16] MEDS: TPN 1,000 ML IV SCH ×2 (04:58→17:19)
[2017-01-16] MEDS: METOCLOPRAMIDE 10 MG INJ IV SCH ×3 (05:26→17:19)
[2017-01-16] MEDS: predniSOLONE (3 MG/ML PO SYG) PO SCH (08:23)
[2017-01-16] MEDS: BALSAM PERU/CASTOR OIL 60 GM TUBE TOP SCH ×2 (08:24→21:03)
[2017-01-16] MEDS: MEROPENEM 500MG/50 ML (PMX) 50 ML IVPB SCH ×2 (08:24→21:03)
[2017-01-16] MEDS: LACTULOSE 30ML CUP NGT SCH ×3 (08:24→21:03)
[2017-01-16] MEDS: NYSTATIN SUSP 5 ML CUP PO SCH ×4 (08:24→21:03)
[2017-01-16] MEDS: CITRIC ACID/NA CITRATE 30 ML CUP NGT SCH ×3 (08:24→21:03)
[2017-01-16] MEDS: RIFAXIMIN 550 MG TAB PO SCH ×2 (08:24→21:03)
[2017-01-16] MEDS: PANTOPRAZOLE 40 MG INJ IV SCH (08:24)
[2017-01-16] MEDS ORDERED: POTASSIUM CHLORIDE 250 ML IVPB ONE (09:00)
[2017-01-16] MEDS: OCTREOTIDE 500 MCG in DEXTROSE 5% 49 ML IV SCH (11:06)
[2017-01-16] MEDS: VANCOMYCIN 1 GM in DEXTROSE 5% 250 ML IVPB SCH (11:08)
--- NOTE | 2017-01-16 11:23 | PN ---
Date/Time of Note Date/Time of Note DATE: 01/16/17 TIME: 10:18 Assessment/Plan Lines/Catheters IV Catheter Type (from [facility]): PICC Line Minaya in Place (from [facility]): Yes Assessment/Plan Chief Complaint/Hosp Course 1. Paralytic ileus 2nd acute processes. SBFT negative. + rectal tube output. Improved -Monitor 2. Acute on chronic alcoholic pancreatitis with peripancreatic fluid: amylase/ lipase improving -Supportive measures -Judicious fluid management -Trend labs -Encourage cessation 3. Acute GI bleed from gastritis and esophageal varices secondary to alcoholism ; no output from ng tube. Stable -Transfuse as needed -Supportive measures: ppi -Correct coagulopathy and platelet dysfunction 4. Anemia secondary to above -As above 5. Leukocytosis, multifactorial with SIRS and steroid therapy, ? infectious; on abx therapy; increasing wbc-no fevers -Close monitoring -Antibiotics for bacterial translocation 6. Alcoholic hepatitis with hepatosplenomegaly; worsening LFT's -Medical and GI optimization 7. Chronic alcohol abuse with Delirium Tremens; no tremors -Encourage cessation -Sedation/intubation 8. Subcapsular liver collection possible hematoma versus other -Monitor 9. Electrolyte imbalance -Correct with replacements and fluid management 10. Alcohol withdrawal with tachypnea, tachycardia and delirium tremens; improved -supportive 11. NICOLAS: output improving. Cr improving. -judicious fluids -avoid nephrotoxic meds Thank you. Patient seen and examined in collaboration with Dr. Bob Tristan. Problems: Subjective 24 Hr Interval Summary Pending paracentesis. Extubated. Confortable on nasal cannula. Responsive. + rectal tube output. Worsened leukocytosis but afebrile. +uop with improving cr. No chills, sob, seizures/tremors, n/v/d/dysuria. Worsened LFT's. Exam/Review of Systems Vital Signs Vitals Vital Signs Date Time Temp Pulse Resp B/P Pulse Ox O2 Delivery O2 Flow Rate FiO2 01/16/17 08:00 Nasal Cannula 2.0 01/16/17 08:00 75 10 129/71 100 01/16/17 04:00 98.2 01/15/17 11:00 30 Intake and Output 01/15/17 01/15/17 01/16/17 15:00 23:00 07:00 Intake Total 817.5 ml 50 ml 600 ml Output Total 965 ml 940 ml 775 ml Balance -147.5 ml -890 ml -175 ml Exam Free Text/Dictation Constitutional: No distress, Not oriented. Psych: No nl mood/affect Head: atraumatic, normocephalic, No hematomas, No lacerations Eyes: EOMI, PERRL, icteric ENMT: nl external ears & nose, nl lips & teeth, ng tube without drainage. Mucosa pink and dry. Neck: non-tender, supple, No jvd Respiratory: No congested cough, No labored breathing Cardiovascular: No edema, No regular rate and rhythm: SR Gastrointestinal: soft, non-tender, distended. No rebound or guarding; rectal tube with +stool/gas Musculoskeletal: nl extremities to inspection, No joint tenderness Extremities: normal pulses, No calf tenderness, No cyanosis Neurological: Responsive Skin: rash or lesions (Jaundice), No diaphoresis, No nl turgor : minaya with luis output (improved; increased amount) Lymph: nl lymph nodes, nontender Results Result Diagram: 01/16/17 0327 01/16/17 0326 ELIO GIBBONS NP Jan 16, 2017 10:29
--- NOTE | 2017-01-16 12:18 | PN ---
DATE: 01/16/2017 SUBJECTIVE DATA: No acute changes. The patient was extubated a couple of days ago. He is lethargic, arousable, and follows simple commands. No fevers. Temperature 98.2, pulse 72, respirations 10, blood pressure 129/71, saturation 100 on 2 L nasal cannula. WBC 27.2, H and H 8.6 and 26.9, platelets 104, neutrophils 87.8. BUN 102, creatinine 2.61, sodium 153, total bilirubin 25.1. DIAGNOSTICS: Chest x-ray yesterday revealed stable and satisfactory position of supporting lines. Bibasilar subsegmental atelectasis, unchanged. INDWELLING: The patient has NG tube, rectal tube, left upper extremity PICC line and [place] catheter. ANTIMICROBIALS: Vancomycin, meropenem. PHYSICAL EXAMINATION: GENERAL: This is a chronically ill-appearing, middle-aged, well developed man, who is lethargic, in no distress. HEENT: Head atraumatic, normocephalic. Sclerae anicteric. Buccal mucosa dry. NECK: Supple. Trachea midline. CHEST: Rise symmetrical. Breath sounds diminished at the bases. HEART: S1, S2. ABDOMEN: Distended. Bowel sounds hypoactive. EXTREMITIES: Without cyanosis. SKIN: Positive for anasarca and jaundice. ASSESSMENT: 1. Severe sepsis. 2. Acute pancreatitis. 3. Respiratory failure, status post extubation. 4. Decompensated liver failure. 5. Acute renal failure, improving. 6. Ileus. PLAN: The patient remains stable post extubation. He is being followed by multiple consultants. We will continue him on current antibiotics. Continue anti-aspiration measures. Plan for possible paracentesis. Will make sure and sent fluid for culture, Gram stain, and cytology. Dictated By: Thom Loyd NP /derek/nancy /Document#: [id number]
--- NOTE | 2017-01-16 12:28 | CONS ---
Date/Time of Note Date/Time of Note DATE: 01/16/17 TIME: 12:24 Assessment/Plan Assessment/Plan Additional Assessment/Plan Patient is currently on Sandostatin drip at 25 mics per hour. TPN. Assessment and recommendations; 1. Patient admitted with severe hepatic encephalopathy due to alcoholic hepatitis with significant overall improvement over the last 48 hours. 2. Status post respiratory failure, extubated yesterday. 3. Anemia and thrombocytopenia. 4. Gastritis. 5. Interval resolution of GI bleed. 6. Hepatorenal syndrome with significant improvement in renal function. Patient did not require hemodialysis. 7. Persistent severe hyperbilirubinemia. 8. Aspiration pneumonia with marked radiological clearance of bilateral infiltrates. 9. Severe acute pancreatitis with clinical improvement. 10. Ileus. Improving clinically. Continue current treatment. Consider stopping antibiotics. Consultation Date/Type/Reason Admit Date/Time Jan 02, 2017 at 19:30 Initial Consult Date 01/07/17 Type of Consultation: Pulmonary/care Referring Provider: BRAEDEN LUNSFORD MD 24 HR Interval Summary Free Text/Dictation Patient's condition is markedly improved. He was extubated yesterday. And has remained stable. General exam; young male, awake and alert. Responding appropriately to commands however speech is slurred. Currently in no distress. Exam/Review of Systems Vital Signs Vitals Vital Signs Date Time Temp Pulse Resp B/P Pulse Ox O2 Delivery O2 Flow Rate FiO2 01/16/17 11:00 80 11 123/88 100 Nasal Cannula 2.0 01/16/17 04:00 98.2 01/15/17 11:00 30 Intake and Output 01/15/17 01/15/17 01/16/17 15:00 23:00 07:00 Intake Total 817.5 ml 50 ml 600 ml Output Total 965 ml 940 ml 775 ml Balance -147.5 ml -890 ml -175 ml Exam H ENT exam supple neck, no JVD. No lymphadenopathy. Midline trachea. No thyromegaly. Patient has fair dentition. No active oral bleeding seen. Patient remains deeply icteric. Pupils are small bilaterally. Exam; clear to auscultation. S1-S2 audible, no murmurs. Regular rhythm. Abdomen exam; soft, nontender. No distention. Bowel sounds audible. No organomegaly. Extremity exam; no edema. Pulses 1+ bilaterally. HEALTH PSYCHOLOGIST exam; he is awake and responding appropriately to commands. Results Result Diagram: 01/16/17 0327 01/16/17 0326 Results 24 hrs Laboratory Tests Test 01/15/17 13:37 01/15/17 17:06 01/15/17 17:15 01/15/17 20:43 Bedside Glucose 157 165 169 Sodium Level 153 H Potassium Level 3.5 Chloride Level 120 H Carbon Dioxide Level 18 L Anion Gap 19 H Blood Urea Nitrogen 102 H Creatinine 2.75 H Glucose Level 172 # Calcium Level 9.3 Test 01/16/17 00:55 01/16/17 01:15 01/16/17 03:26 01/16/17 03:27 Bedside Glucose 145 Sodium Level 143 153 H Potassium Level 5.1 3.1 #L Chloride Level 115 H 121 H Carbon Dioxide Level 19 L 21 Anion Gap 14 14 Blood Urea Nitrogen 92 H 102 H Creatinine 2.66 H 2.61 H Glucose Level 577 #*H 142 # Calcium Level 9.0 9.5 Total Bilirubin 25.1 H Direct Bilirubin 23.00 *H Indirect Bilirubin 2.1 H Aspartate Amino Transf (AST/SGOT) 252 H Alanine Aminotransferase (ALT/SGPT) 80 H Alkaline Phosphatase 324 H Total Protein 7.1 Albumin 2.6 L Globulin 4.50 H Albumin/Globulin Ratio 0.57 Lipase 530 H White Blood Count 27.2 #H Red Blood Count 2.47 L Hemoglobin 8.6 L Hematocrit 26.9 L Mean Corpuscular Volume 108.9 H Mean Corpuscular Hemoglobin 34.8 H Mean Corpuscular Hemoglobin Concent 32.0 Red Cell Distribution Width 23.8 H Platelet Count 104 #L Mean Platelet Volume 12.6 H Neutrophils % 87.8 H Lymphocytes % 2.8 L Monocytes % 5.3 Eosinophils % 0.0 Basophils % 0.1 Nucleated Red Blood Cells % 0.1 H Neutrophils # 23.9 H Lymphocytes # 0.8 Monocytes # 1.5 H Eosinophils # 0.0 Basophils # 0.0 Nucleated Red Blood Cells # 0.0 Phosphorus Level 5.0 H Magnesium Level 2.2 Test 01/16/17 05:27 01/16/17 09:26 01/16/17 09:45 Bedside Glucose 145 146 Vancomycin Level Trough 10.1 Medications Medications Current Medications Ondansetron HCl (Zofran Inj) 4 mg Q6H PRN IV NAUSEA AND/OR VOMITING Last administered on 01/03/17 14:52; Admin Dose 4 MG; Start 01/02/17 at 23:00 Docusate Sodium (Colace) 100 mg Q12H PRN PO CONSTIPATION; Start 01/02/17 at 23: 00 Rifaximin (Xifaxan) 550 mg BID PO Last administered on 01/16/17 08:24; Admin Dose 550 MG; Start 01/04/17 at 11:00 Metoclopramide HCl (Reglan) 10 mg Q6 IV Last administered on 01/16/17 05:26; Admin Dose 10 MG; Start 01/05/17 at 00:00 Lorazepam (Ativan) 1 mg Q2 PRN IV ANXIETY Last administered on 01/16/17 01:48 ; Admin Dose 1 MG; Start 01/05/17 at 13:00 IV Flush (NS 10 ml) 10 ml PRN PRN IV IV PROTOCOL; Start 01/05/17 at 18:30 Diagnostic Test (Pha) (Accu-Chek) 1 ea Q4 XX Last administered on 01/16/17 09: 45; Admin Dose 1 EA; Start 01/06/17 at 17:00 Diazepam (Valium) 10 mg Q2H PRN IV ANXIETY Last administered on 01/08/17 01:43 ; Admin Dose 10 MG; Start 01/07/17 at 12:00 Pantoprazole 40 mg 40 mg DAILY IV Last administered on 01/16/17 08:24; Admin Dose 40 MG; Start 01/09/17 at 09:00 Meropenem/Sodium Chloride 50 ml @ 100 mls/hr Q12 IVPB Last administered on 08:24; Admin Dose 100 MLS/HR; Start 01/09/17 at 21:00 Total Parenteral Nutrition (Tpn) 1,000 ml @ 50 mls/hr Q20H IV Last administered on 01/16/17 04:58; Admin Dose 40 MLS/HR; Start 01/09/17 at 18:00 Prednisolone (Prelone (Ped)) 40 mg DAILY PO Last administered on 01/16/17 08: 23; Admin Dose 40 MG; Start 01/12/17 at 09:00 Citric Acid/ Sodium Citrate (Bicitra) 30 ml TID NGT Last administered on 08:24; Admin Dose 30 ML; Start 01/12/17 at 09:00 Lactulose (Enulose) 20 gm TID NGT Last administered on 01/16/17 08:24; Admin Dose 20 GM; Start 01/12/17 at 13:00 Nystatin 5 ml 5 ml QID PO Last administered on 01/16/17 08:24; Admin Dose 5 ML ; Start 01/13/17 at 17:00 Dextrose (D5W) 1,000 ml @ 20 mls/hr Q24H IV Last administered on 01/15/17 18: 34; Admin Dose 50 MLS/HR; Start 01/15/17 at 18:30 Insulin Aspart (Novolog Insulin Pen) NOVOLOG *MILD* ALGORI... Q4 SC Last administered on 01/16/17 09:47; Admin Dose 1 UNIT; Start 01/15/17 at 21:00 Miscellaneous Information 1 ea NOTE XX ; Start 01/15/17 at 18:30 Glucose (Glutose) 15 gm Q15M PRN PO DECREASED GLUCOSE; Start 01/15/17 at 18:30 Glucose (Glutose) 22.5 gm Q15M PRN PO DECREASED GLUCOSE; Start 01/15/17 at 18: 30 Dextrose (D50w Syringe) 25 ml Q15M PRN IV DECREASED GLUCOSE; Start 01/15/17 at 18:30 Dextrose (D50w Syringe) 50 ml Q15M PRN IV DECREASED GLUCOSE; Start 01/15/17 at 18:30 Glucagon (Glucagen) 1 mg Q15M PRN IM DECREASED GLUCOSE; Start 01/15/17 at 18:30 Glucose 15 gm 15 gm Q15M PRN BUCCAL DECREASED GLUCOSE; Start 01/15/17 at 18:30 Potassium Chloride (KCl 40 MEQ/250 ML NS) 250 ml @ 62.5 mls/hr ONCE ONCE IVPB Last administered on 01/16/17 10:22; Admin Dose 62.5 MLS/HR; Start 01/16/17 at 09:00; Stop 01/16/17 at 12:59 Morphine Sulfate 1 mg 1 mg Q4H PRN IM PAIN; Start 01/16/17 at 09:00 Octreotide Acetate 500 mcg/ Dextrose 50 ml @ 2.5 mls/hr Q20H IV Last administered on 10/2/17at 11:06; Admin Dose 2.5 MLS/HR; Start 01/16/17 at 10:00 Vancomycin HCl/ Dextrose (Vancocin/D5W) 250 ml @ 83.333 mls/ hr Q48H IVPB ; Start 01/18/17 at 10:00 NERI MCKEON Jan 16, 2017 12:28
--- NOTE | 2017-01-16 13:56 | CONS ---
Date/Time of Note Date/Time of Note DATE: 01/16/17 TIME: 13:54 Assessment/Plan Assessment/Plan Additional Assessment/Plan Assessment/Plan Assessment/Plan Additional Assessment/Plan Additional Assessment/Plan IMPRESSION: 1. Delirium tremens. The patient is now intubated and on propofol 2. Hepatic encephalopathy. Ammonia is 47 partly related to propofol and Ativan 3. Alcoholic liver disease. Patient is on prednisolone 4. Pancreatitis. Amylase has come down . Lipase is down 5. Leukocytosis. WBC count is coming down slowly 6. Renal insufficiency. Though the urine output is good. Renal function has improved a lot with good urine output. Creatinine is coming down. Now it is 3.2 7. Pedal edema and ascites, reducing 8. Thrombocytopenia 9. Ileus, small bowel follow-through was negative 10. Patient's gastroparesis might be related to uremia Plan 1. Continue prednisolone 2. Discontinue all flushes through NG tube, which is increasing fluid overload 3. Patient is off propofol for more than 8 hours, he is moving all his extremities and responding to his name. Patient is also not tachycardic. I discussed with server developer to try the weaning process. 4. Reduce IV fluid since patient is third spacing, may need albumin. 5. Since the kidney function is improving and the urine output is good I would continue octreotide 6. We will monitor WBC, INR, total bilirubin, and creatinine on a regular basis 7. I had [id number] discussion with the mother and the family members and also with the dental office receptionist and server developer. 8. If bilirubin does not come down I may add pentoxifylline 400 mg once a day 9. successfully extubated. Will continue with the present care. 10. Please avoid narcotics and also Ativan patient confusional state is secondary to hepatic encephalopathy Consultation Date/Type/Reason Admit Date/Time Jan 02, 2017 at 19:30 Type of Consultation: Pulmonary/care Referring Provider: BRAEDEN LUNSFORD MD 24 HR Interval Summary Constitutional: improved Exam/Review of Systems Vital Signs Vitals Vital Signs Date Time Temp Pulse Resp B/P Pulse Ox O2 Delivery O2 Flow Rate FiO2 01/16/17 12:00 78 01/16/17 11:00 11 123/88 100 Nasal Cannula 2.0 01/16/17 04:00 98.2 01/15/17 11:00 30 Intake and Output 01/15/17 01/15/17 01/16/17 15:00 23:00 07:00 Intake Total 817.5 ml 50 ml 600 ml Output Total 965 ml 940 ml 775 ml Balance -147.5 ml -890 ml -175 ml Exam Respiratory: clear to auscultation, normal air movement Cardiovascular: nl pulses, regular rate and rhythm Gastrointestinal: ascites, distended Musculoskeletal: nl extremities to inspection, nl gait and stance Extremities: pitting pedal edema Neurological: PATTERN ATTENDANT II-XII intact, lethargic, nl mental status, nl speech, nl strength Skin: nl turgor, No rash or lesions Results Result Diagram: 01/16/17 0327 01/16/17 0326 Results 24 hrs Laboratory Tests Test 01/15/17 17:06 01/15/17 17:15 01/15/17 20:43 01/16/17 00:55 Sodium Level 153 H Potassium Level 3.5 Chloride Level 120 H Carbon Dioxide Level 18 L Anion Gap 19 H Blood Urea Nitrogen 102 H Creatinine 2.75 H Glucose Level 172 # Calcium Level 9.3 Bedside Glucose 165 169 145 Test 01/16/17 01:15 01/16/17 03:26 01/16/17 03:27 01/16/17 05:27 Sodium Level 143 153 H Potassium Level 5.1 3.1 #L Chloride Level 115 H 121 H Carbon Dioxide Level 19 L 21 Anion Gap 14 14 Blood Urea Nitrogen 92 H 102 H Creatinine 2.66 H 2.61 H Glucose Level 577 #*H 142 # Calcium Level 9.0 9.5 Total Bilirubin 25.1 H Direct Bilirubin 23.00 *H Indirect Bilirubin 2.1 H Aspartate Amino Transf (AST/SGOT) 252 H Alanine Aminotransferase (ALT/SGPT) 80 H Alkaline Phosphatase 324 H Total Protein 7.1 Albumin 2.6 L Globulin 4.50 H Albumin/Globulin Ratio 0.57 Lipase 530 H White Blood Count 27.2 #H Red Blood Count 2.47 L Hemoglobin 8.6 L Hematocrit 26.9 L Mean Corpuscular Volume 108.9 H Mean Corpuscular Hemoglobin 34.8 H Mean Corpuscular Hemoglobin Concent 32.0 Red Cell Distribution Width 23.8 H Platelet Count 104 #L Mean Platelet Volume 12.6 H Neutrophils % 87.8 H Lymphocytes % 2.8 L Monocytes % 5.3 Eosinophils % 0.0 Basophils % 0.1 Nucleated Red Blood Cells % 0.1 H Neutrophils # 23.9 H Lymphocytes # 0.8 Monocytes # 1.5 H Eosinophils # 0.0 Basophils # 0.0 Nucleated Red Blood Cells # 0.0 Phosphorus Level 5.0 H Magnesium Level 2.2 Bedside Glucose 145 Test 01/16/17 09:26 01/16/17 09:45 01/16/17 12:51 Vancomycin Level Trough 10.1 Bedside Glucose 146 161 Medications Medications Current Medications Ondansetron HCl (Zofran Inj) 4 mg Q6H PRN IV NAUSEA AND/OR VOMITING Last administered on 01/03/17 14:52; Admin Dose 4 MG; Start 01/02/17 at 23:00 Docusate Sodium (Colace) 100 mg Q12H PRN PO CONSTIPATION; Start 01/02/17 at 23: 00 Rifaximin (Xifaxan) 550 mg BID PO Last administered on 01/16/17 08:24; Admin Dose 550 MG; Start 01/04/17 at 11:00 Metoclopramide HCl (Reglan) 10 mg Q6 IV Last administered on 01/16/17 12:49; Admin Dose 10 MG; Start 01/05/17 at 00:00 Lorazepam (Ativan) 1 mg Q2 PRN IV ANXIETY Last administered on 01/16/17 01:48 ; Admin Dose 1 MG; Start 01/05/17 at 13:00 IV Flush (NS 10 ml) 10 ml PRN PRN IV IV PROTOCOL; Start 01/05/17 at 18:30 Diagnostic Test (Pha) (Accu-Chek) 1 ea Q4 XX Last administered on 01/16/17 12: 57; Admin Dose 1 EA; Start 01/06/17 at 17:00 Diazepam (Valium) 10 mg Q2H PRN IV ANXIETY Last administered on 01/08/17 01:43 ; Admin Dose 10 MG; Start 01/07/17 at 12:00 Pantoprazole 40 mg 40 mg DAILY IV Last administered on 01/16/17 08:24; Admin Dose 40 MG; Start 01/09/17 at 09:00 Meropenem/Sodium Chloride 50 ml @ 100 mls/hr Q12 IVPB Last administered on 08:24; Admin Dose 100 MLS/HR; Start 01/09/17 at 21:00 Total Parenteral Nutrition (Tpn) 1,000 ml @ 50 mls/hr Q20H IV Last administered on 01/16/17 04:58; Admin Dose 40 MLS/HR; Start 01/09/17 at 18:00 Prednisolone (Prelone (Ped)) 40 mg DAILY PO Last administered on 01/16/17 08: 23; Admin Dose 40 MG; Start 01/12/17 at 09:00 Citric Acid/ Sodium Citrate (Bicitra) 30 ml TID NGT Last administered on 12:50; Admin Dose 30 ML; Start 01/12/17 at 09:00 Lactulose (Enulose) 20 gm TID NGT Last administered on 01/16/17 12:49; Admin Dose 20 GM; Start 01/12/17 at 13:00 Nystatin 5 ml 5 ml QID PO Last administered on 01/16/17 12:49; Admin Dose 5 ML ; Start 01/13/17 at 17:00 Dextrose (D5W) 1,000 ml @ 20 mls/hr Q24H IV Last administered on 01/15/17 18: 34; Admin Dose 50 MLS/HR; Start 01/15/17 at 18:30 Insulin Aspart (Novolog Insulin Pen) NOVOLOG *MILD* ALGORI... Q4 SC Last administered on 01/16/17 12:54; Admin Dose 1 UNIT; Start 01/15/17 at 21:00 Miscellaneous Information 1 ea NOTE XX ; Start 01/15/17 at 18:30 Glucose (Glutose) 15 gm Q15M PRN PO DECREASED GLUCOSE; Start 01/15/17 at 18:30 Glucose (Glutose) 22.5 gm Q15M PRN PO DECREASED GLUCOSE; Start 01/15/17 at 18: 30 Dextrose (D50w Syringe) 25 ml Q15M PRN IV DECREASED GLUCOSE; Start 01/15/17 at 18:30 Dextrose (D50w Syringe) 50 ml Q15M PRN IV DECREASED GLUCOSE; Start 01/15/17 at 18:30 Glucagon (Glucagen) 1 mg Q15M PRN IM DECREASED GLUCOSE; Start 01/15/17 at 18:30 Glucose (Glutose) 15 gm Q15M PRN BUCCAL DECREASED GLUCOSE; Start 01/15/17 at 18 :30 Morphine Sulfate 1 mg 1 mg Q4H PRN IM PAIN; Start 01/16/17 at 09:00 Octreotide Acetate 500 mcg/ Dextrose 50 ml @ 2.5 mls/hr Q20H IV Last administered on 01/16/17t 11:06; Admin Dose 2.5 MLS/HR; Start 01/16/17 at 10:00 Vancomycin HCl/ Dextrose (Vancocin/D5W) 250 ml @ 83.333 mls/ hr Q48H IVPB ; Start 01/18/17 at 10:00 LAURA CORDERO MD Jan 16, 2017 13:56
[2017-01-16] MEDS ORDERED: LIDOCAINE 1% (MPF) 5 ML VIAL ONE (14:17)
--- NOTE | 2017-01-16 14:17 | RADRPT ---
PROCEDURE: Ultrasound guided paracentesis. CLINICAL INDICATION: Ascites and shortness of breath. COMPARISON: No prior studies are available for comparison. TECHNIQUE: The risks, benefits, and alternatives were explained to the patient and/or the patient's family, inc luding but not limited to bleeding, infection, pain, visceral or vascular damage, shock, and . The patient and/or the patient's family understood the risks and the alternatives and wished to pro ceed with the procedure. Informed written consent was obtained. A procedural time out was performed . The patient's name, date of , and procedure to be performed were verified. Utilizing ultrasound guidance, optimal location for entry to the peritoneal cavity was ascertained. The overlying skin was prepped and draped in the usual sterile fashion. Approximately 10 ml of 1% Xylocaine was injected locally for pain control. Using ultrasound guidance, an 8 Mosotho catheter wa s introduced into the peritoneal cavity in the right lower quadrant without difficulty. FINDINGS: Initial images demonstrate ascites. Approximately 2.8 liters of serous fluid was aspirated and sent for laboratory analysis. The patient tolerated the procedure well without complication. IMPRESSION: 1. Successful ultrasound-guided paracentesis. RPTAT: QQ .Jesse Sanchez MD, Date Time Electronically viewed and signed by .Jesse Sanchez MD, on 01/16/2017 14:17 .R/
[2017-01-16 14:58] LABS: FLD RBC 0 /uL; FLD WBC 116 /cmm
[2017-01-16 15:04] LABS: FLD CLARITY CLEAR; FLD COLOR YELLOW; FLD TYPE PARACENTHESIS
[2017-01-16 15:34] LABS: FLD MN% 48.3 %; FLD PMN% 51.7 %
--- NOTE | 2017-01-16 17:50 | PN ---
Date/Time of Note Date/Time of Note DATE: 01/16/17 TIME: 17:42 Assessment/Plan VTE Prophylaxis VTE Prophylaxis Intervention: other Lines/Catheters IV Catheter Type (from Nrs): PICC Line Central line still needed: Yes Urinary Cath still in place: Yes Reason Cath still needed: other (indicate) Assessment/Plan Chief Complaint/Hosp Course # Acute on chronic liver failure likely Etoh abuse with elevated INR, Hyperbilirubenemia, low platelets, # Hepatic encephalopathy # ETOH withdrawal S/P # ETOH pancreatitis # Non Gap Acidosis likely combination of renal failure and diarrhoea # Leukocytosis could be pancreatitis vs Alcholic hepatitis # Hypoxic Respiratory failure s/p extubated on 01/15 # Thrombocytopenia # Anemia # s/P EGD with gastritis # Ileus s/p Small bowel follow thru which is negative, PLAN TPN [facility] Problems: Subjective 24 Hr Interval Summary Subjective hx not possible: other (OFF VENT) Cardiovascular: no complaints Gastrointestinal: No diarrhea Neurologic: no complaints Exam/Review of Systems Vital Signs Vitals Vital Signs Date Time Temp Pulse Resp B/P Pulse Ox O2 Delivery O2 Flow Rate FiO2 01/16/17 16:00 83 01/16/17 15:00 12 127/73 99 Nasal Cannula 2.0 01/16/17 12:00 98.3 01/15/17 11:00 30 Intake and Output 01/15/17 01/15/17 01/16/17 15:00 23:00 07:00 Intake Total 817.5 ml 50 ml 692.5 ml Output Total 965 ml 940 ml 775 ml Balance -147.5 ml -890 ml -82.5 ml Exam Neck: supple Respiratory: clear to auscultation Cardiovascular: regular rate and rhythm Gastrointestinal: bowel sounds (+), soft Extremities: edema (++) Neurological: confused Results Result Diagram: 01/16/17 0327 01/16/17 0326 Results 24 hrs Laboratory Tests Test 01/15/17 20:43 01/16/17 00:55 01/16/17 01:15 01/16/17 03:26 Bedside Glucose 169 145 Sodium Level 143 153 H Potassium Level 5.1 3.1 #L Chloride Level 115 H 121 H Carbon Dioxide Level 19 L 21 Anion Gap 14 14 Blood Urea Nitrogen 92 H 102 H Creatinine 2.66 H 2.61 H Glucose Level 577 #*H 142 # Calcium Level 9.0 9.5 Total Bilirubin 25.1 H Direct Bilirubin 23.00 *H Indirect Bilirubin 2.1 H Aspartate Amino Transf (AST/SGOT) 252 H Alanine Aminotransferase (ALT/SGPT) 80 H Alkaline Phosphatase 324 H Total Protein 7.1 Albumin 2.6 L Globulin 4.50 H Albumin/Globulin Ratio 0.57 Lipase 530 H Test 01/16/17 03:27 01/16/17 05:27 01/16/17 09:26 01/16/17 09:45 White Blood Count 27.2 #H Red Blood Count 2.47 L Hemoglobin 8.6 L Hematocrit 26.9 L Mean Corpuscular Volume 108.9 H Mean Corpuscular Hemoglobin 34.8 H Mean Corpuscular Hemoglobin Concent 32.0 Red Cell Distribution Width 23.8 H Platelet Count 104 #L Mean Platelet Volume 12.6 H Neutrophils % 87.8 H Lymphocytes % 2.8 L Monocytes % 5.3 Eosinophils % 0.0 Basophils % 0.1 Nucleated Red Blood Cells % 0.1 H Neutrophils # 23.9 H Lymphocytes # 0.8 Monocytes # 1.5 H Eosinophils # 0.0 Basophils # 0.0 Nucleated Red Blood Cells # 0.0 Phosphorus Level 5.0 H Magnesium Level 2.2 Bedside Glucose 145 146 Vancomycin Level Trough 10.1 Test 01/16/17 12:51 01/16/17 14:15 01/16/17 17:20 Bedside Glucose 161 177 Body Fluid Type PARACENTHESIS Body Fluid Volume 1000.0 Body Fluid Color YELLOW Body Fluid Appearance CLEAR Body Fluid WBC 116 Body Fluid RBC (Auto) 0 Body Fluid Polynuclear WBCs (%) 51.7 Body Fluid Mononuclear Cells % Auto 48.3 Medications Medications Current Medications Ondansetron HCl (Zofran Inj) 4 mg Q6H PRN IV NAUSEA AND/OR VOMITING Last administered on 01/03/17 14:52; Admin Dose 4 MG; Start 01/02/17 at 23:00 Docusate Sodium (Colace) 100 mg Q12H PRN PO CONSTIPATION; Start 01/02/17 at 23: 00 Rifaximin (Xifaxan) 550 mg BID PO Last administered on 01/16/17 08:24; Admin Dose 550 MG; Start 01/04/17 at 11:00 Lorazepam (Ativan) 1 mg Q2 PRN IV ANXIETY Last administered on 01/16/17 01:48 ; Admin Dose 1 MG; Start 01/05/17 at 13:00 IV Flush (NS 10 ml) 10 ml PRN PRN IV IV PROTOCOL; Start 01/05/17 at 18:30 Diagnostic Test (Pha) (Accu-Chek) 1 ea Q4 XX Last administered on 01/16/17 17: 19; Admin Dose 1 EA; Start 01/06/17 at 17:00 Diazepam (Valium) 10 mg Q2H PRN IV ANXIETY Last administered on 01/08/17 01:43 ; Admin Dose 10 MG; Start 01/07/17 at 12:00 Pantoprazole 40 mg 40 mg DAILY IV Last administered on 01/16/17 08:24; Admin Dose 40 MG; Start 01/09/17 at 09:00 Meropenem/Sodium Chloride 50 ml @ 100 mls/hr Q12 IVPB Last administered on 08:24; Admin Dose 100 MLS/HR; Start 01/09/17 at 21:00 Total Parenteral Nutrition (Tpn) 1,000 ml @ 50 mls/hr Q20H IV Last administered on 01/16/17 17:19; Admin Dose 50 MLS/HR; Start 01/09/17 at 18:00 Prednisolone (Prelone (Ped)) 40 mg DAILY PO Last administered on 01/16/17 08: 23; Admin Dose 40 MG; Start 01/12/17 at 09:00 Citric Acid/ Sodium Citrate (Bicitra) 30 ml TID NGT Last administered on 12:50; Admin Dose 30 ML; Start 01/12/17 at 09:00 Lactulose (Enulose) 20 gm TID NGT Last administered on 01/16/17 12:49; Admin Dose 20 GM; Start 01/12/17 at 13:00 Nystatin 5 ml 5 ml QID PO Last administered on 01/16/17 17:19; Admin Dose 5 ML ; Start 01/13/17 at 17:00 Dextrose (D5W) 1,000 ml @ 20 mls/hr Q24H IV Last administered on 01/15/17 18: 34; Admin Dose 50 MLS/HR; Start 01/15/17 at 18:30 Insulin Aspart (Novolog Insulin Pen) NOVOLOG *MILD* ALGORI... Q4 SC Last administered on 01/16/17 17:22; Admin Dose 1 UNIT; Start 01/15/17 at 21:00 Miscellaneous Information 1 ea NOTE XX ; Start 01/15/17 at 18:30 Glucose (Glutose) 15 gm Q15M PRN PO DECREASED GLUCOSE; Start 01/15/17 at 18:30 Glucose (Glutose) 22.5 gm Q15M PRN PO DECREASED GLUCOSE; Start 01/15/17 at 18: 30 Dextrose (D50w Syringe) 25 ml Q15M PRN IV DECREASED GLUCOSE; Start 01/15/17 at 18:30 Dextrose (D50w Syringe) 50 ml Q15M PRN IV DECREASED GLUCOSE; Start 01/15/17 at 18:30 Glucagon (Glucagen) 1 mg Q15M PRN IM DECREASED GLUCOSE; Start 01/15/17 at 18:30 Glucose (Glutose) 15 gm Q15M PRN BUCCAL DECREASED GLUCOSE; Start 01/15/17 at 18 :30 Morphine Sulfate 1 mg 1 mg Q4H PRN IM PAIN; Start 01/16/17 at 09:00 Octreotide Acetate 500 mcg/ Dextrose 50 ml @ 2.5 mls/hr Q20H IV Last administered on 01/16/17 11:06; Admin Dose 2.5 MLS/HR; Start 01/16/17 at 10:00 Vancomycin HCl/ Dextrose (Vancocin/D5W) 250 ml @ 83.333 mls/ hr Q48H IVPB ; Start 01/18/17 at 10:00 Metoclopramide HCl (Reglan) 5 mg Q6 IV Last administered on 01/16/17 17:19; Admin Dose 5 MG; Start 01/16/17 at 18:00 JAYME BANSAL MD Jan 16, 2017 17:50
[2017-01-16] MEDS: DEXTROSE 5% 1,000 ML IV SCH (18:27)
[2017-01-17] VITALS (24 sets, daily range): BP systolic 115–144; BP diastolic 59–85; PULSE 73–93; RESP 11–22
[2017-01-17] MEDS: METOCLOPRAMIDE 10 MG INJ IV SCH ×5 (01:22→23:47)
[2017-01-17] MEDS: INSULIN ASPART [NOVOLOG] 3 ML PEN SC SCH ×6 (01:23→21:33)
[2017-01-17] MEDS: ACCU-CHEK XX SCH ×6 (01:25→21:00)
[2017-01-17] MEDS: morphine 10 MG INJ IM PRN (01:41)
[2017-01-17] MEDS: OCTREOTIDE 500 MCG in DEXTROSE 5% 49 ML IV SCH ×2 (05:05→23:00)
[2017-01-17 05:36] LABS: ABNORMAL IP MESSAGE 1; BASOPHILS % 0.1 % (0.0-2.0); HEMATOCRIT 25.7 % (42.0-52.0); LYMPHOCYTES # 0.6 10^3/ul (0.8-2.9); LYMPHOCYTES % 2.3 % (15.0-51.0); MEAN CORPUSCULAR HEMOGLOBIN 34.6 pg (29.0-33.0); MEAN CORPUSCULAR HGB CONC 31.1 g/dl (32.0-37.0); MEAN CORPUSCULAR VOLUME 111.3 fl (82.0-101.0); MEAN PLATELET VOLUME 12.9 fl (7.4-10.4); MONOCYTE # 1.2 10^3/ul (0.3-0.9); MONOCYTES % 4.5 % (0.0-11.0); NEUTROPHIL # 24.3 10^3/ul (1.6-7.5); NEUTROPHILS % 90.5 % (39.0-77.0); PLATELET COUNT 93 10^3/UL (140-415); POSITIVE DIFF @See below; RED BLOOD COUNT 2.31 10^6/ul (4.70-6.10); RED CELL DISTRIBUTION WIDTH 24.2 % (11.5-14.5); WHITE BLOOD COUNT 26.8 10^3/ul (4.8-10.8)
[2017-01-17 06:13] LABS: MAGNESIUM 1.8 mg/dl (1.7-2.5); PHOSPHORUS 4.5 mg/dl (2.5-4.9)
[2017-01-17 07:57] LABS: ALBUMIN 2.6 g/dl (3.3-4.9); ALBUMIN/GLOBULIN RATIO 0.63; BILIRUBIN,INDIRECT 2.3 mg/dl (0-1.1); BILIRUBIN,TOTAL 26.7 mg/dl (0.2-1.3); CALCIUM 9.1 mg/dl (8.4-10.2); CREATININE 2.07 mg/dl (0.61-1.24); POTASSIUM 3.7 mmol/L (3.5-5.1); TOTAL PROTEIN 6.7 g/dl (6.1-8.1)
[2017-01-17 08:00] LABS: BILIRUBIN,DIRECT 24.4 mg/dl (0.00-0.20)
[2017-01-17] MEDS: MEROPENEM 500MG/50 ML (PMX) 50 ML IVPB SCH (08:24)
[2017-01-17] MEDS: BALSAM PERU/CASTOR OIL 60 GM TUBE TOP SCH ×2 (08:24→21:36)
[2017-01-17] MEDS: NYSTATIN SUSP 5 ML CUP PO SCH ×4 (08:25→22:49)
[2017-01-17] MEDS: CITRIC ACID/NA CITRATE 30 ML CUP NGT SCH ×3 (08:25→22:49)
[2017-01-17] MEDS: LACTULOSE 30ML CUP NGT SCH ×3 (08:25→22:49)
[2017-01-17] MEDS: RIFAXIMIN 550 MG TAB PO SCH ×2 (08:25→22:49)
[2017-01-17] MEDS: predniSOLONE (3 MG/ML PO SYG) PO SCH (08:25)
[2017-01-17] MEDS: PANTOPRAZOLE 40 MG INJ IV SCH (08:25)
[2017-01-17] MEDS: ALBUMIN HUMAN 25% 100 ML IV SCH (09:01)
--- NOTE | 2017-01-17 10:34 | PN ---
Date/Time of Note Date/Time of Note DATE: 01/17/17 TIME: 10:30 Assessment/Plan Lines/Catheters IV Catheter Type (from [facility]): PICC Line Minaya in Place (from [facility]): Yes Assessment/Plan Chief Complaint/Hosp Course 1. Paralytic ileus 2nd acute processes. SBFT negative. + rectal tube output. Improved -Monitor 2. Acute on chronic alcoholic pancreatitis with peripancreatic fluid: amylase/ lipase improving -Supportive measures -Judicious fluid management -Trend labs -Encourage cessation 3. Acute GI bleed from gastritis and esophageal varices secondary to alcoholism ; no output from ng tube. Stable -Transfuse as needed -Supportive measures: ppi -Correct coagulopathy and platelet dysfunction 4. Anemia secondary to above -As above 5. Leukocytosis, multifactorial with SIRS and steroid therapy, ? infectious; on abx therapy; improving wbc-no fevers -Close monitoring -Antibiotics for bacterial translocation 6. Alcoholic hepatitis with hepatosplenomegaly; worsening LFT's -Medical and GI optimization 7. Chronic alcohol abuse with Delirium Tremens; no tremors -Encourage cessation -Sedation/intubation 8. Subcapsular liver collection possible hematoma versus other -Monitor 9. Electrolyte imbalance -Correct with replacements and fluid management 10. Alcohol withdrawal with tachypnea, tachycardia and delirium tremens; improved -supportive 11. NICOLAS: output improving. Cr improving. -judicious fluids -avoid nephrotoxic meds Thank you. Patient seen and examined in collaboration with Dr. Bob Tristan. Problems: Subjective 24 Hr Interval Summary S/p paracentesis. Improved abdominal distention. +bowel function. Cr inproving, +uop. More alert. No fevers, chills, sob, congested cough, n/v/d/dysuria. No ngt output. Exam/Review of Systems Vital Signs Vitals Vital Signs Date Time Temp Pulse Resp B/P Pulse Ox O2 Delivery O2 Flow Rate FiO2 01/17/17 08:00 Nasal Cannula 2.0 01/17/17 08:00 97.9 85 12 133/73 100 01/15/17 11:00 30 Intake and Output 01/16/17 01/16/17 01/17/17 15:00 23:00 07:00 Intake Total 1225.00 ml 640.0 ml 577.5 ml Output Total 1235 ml 1245 ml 1030 ml Balance -10.00 ml -605.0 ml -452.5 ml Exam Free Text/Dictation Constitutional: No distress, Not oriented. more alert Psych: No nl mood/affect Head: atraumatic, normocephalic, No hematomas, No lacerations Eyes: EOMI, PERRL, icteric ENMT: nl external ears & nose, nl lips & teeth, ng tube without drainage. Mucosa pink and dry. Neck: non-tender, supple, No jvd Respiratory: No congested cough, No labored breathing Cardiovascular: No edema, No regular rate and rhythm: SR Gastrointestinal: soft, non-tender, distended (improved). No rebound or guarding; rectal tube with +stool/gas Musculoskeletal: nl extremities to inspection, No joint tenderness; BLE edema Extremities: normal pulses, No calf tenderness, No cyanosis Neurological: Responsive Skin: rash or lesions (Jaundice), No diaphoresis, No nl turgor : minaya with luis output (improved; increased amount) Lymph: nl lymph nodes, nontender Results Result Diagram: 01/17/17 0415 01/17/17 0711 ELIO GIBBONS NP Jan 17, 2017 10:34
--- NOTE | 2017-01-17 11:24 | CONS ---
Date/Time of Note Date/Time of Note DATE: 01/17/17 TIME: 11:23 Assessment/Plan Assessment/Plan Additional Assessment/Plan Additional Assessment/Plan IMPRESSION: 1. Delirium tremens. The patient is now intubated and on propofol 2. Hepatic encephalopathy. Ammonia is 47 partly related to propofol and Ativan 3. Alcoholic liver disease. Patient is on prednisolone 4. Pancreatitis. Amylase has come down . Lipase is down 5. Leukocytosis. WBC count is coming down slowly 6. Renal insufficiency. Though the urine output is good. Renal function has improved a lot with good urine output. Creatinine is coming down. Now it is 3.2 7. Pedal edema and ascites, reducing 8. Thrombocytopenia 9. Ileus, small bowel follow-through was negative 10. Patient's gastroparesis might be related to uremia Plan 1. Continue prednisolone 2. Discontinue all flushes through NG tube, which is increasing fluid overload 3. Patient is off propofol for more than 8 hours, he is moving all his extremities and responding to his name. Patient is also not tachycardic. I discussed with casting inspector to try the weaning process. 4. Reduce IV fluid since patient is third spacing, may need albumin. 5. Since the kidney function is improving and the urine output is good I would continue octreotide 6. We will monitor WBC, INR, total bilirubin, and creatinine on a regular basis 7. I had [id number] discussion with the mother and the family members and also with the bag loader machine operator and casting inspector. 8. If bilirubin does not come down I may add pentoxifylline 400 mg once a day 9. successfully extubated. Will continue with the present care. 10. Please avoid narcotics and also Ativan patient confusional state is secondary to hepatic encephalopathy 11. Abdominal paracentesis done to enough liters of fluid removed 12. Physical therapy and discontinue Ativan Consultation Date/Type/Reason Admit Date/Time Jan 02, 2017 at 19:30 Type of Consultation: Pulmonary/care Referring Provider: BRAEDEN LUNSFORD MD 24 HR Interval Summary Free Text/Dictation Patient speech is slurred. To enough liters of fluid was removed from abdominal cavity no evidence of spontaneous bacterial peritonitis Constitutional: improved Exam/Review of Systems Vital Signs Vitals Vital Signs Date Time Temp Pulse Resp B/P Pulse Ox O2 Delivery O2 Flow Rate FiO2 01/17/17 11:00 87 15 137/78 99 Nasal Cannula 01/17/17 08:00 2.0 01/17/17 08:00 97.9 01/15/17 11:00 30 Intake and Output 01/16/17 01/16/17 01/17/17 15:00 23:00 07:00 Intake Total 1225.00 ml 640.0 ml 577.5 ml Output Total 1235 ml 1245 ml 1030 ml Balance -10.00 ml -605.0 ml -452.5 ml Exam Constitutional: alert, oriented, well developed Psych: nl mood/affect, no complaints Head: atraumatic, normocephalic Eyes: EOMI, PERRL, nl conjunctiva, nl lids, nl sclera ENMT: nl external ears & nose, nl lips & teeth, nl nasal mucosa & septum Neck: non-tender, supple Respiratory: clear to auscultation, normal air movement Cardiovascular: nl pulses, regular rate and rhythm Gastrointestinal: nl liver, spleen, non-tender, soft Musculoskeletal: nl extremities to inspection, nl gait and stance Extremities: normal pulses Neurological: DIRECTOR OF NURSES REGISTRY II-XII intact, nl mental status, nl speech, nl strength Skin: nl turgor, No rash or lesions Lymph: nl lymph nodes Results Result Diagram: 01/17/17 0415 01/17/17 0711 Results 24 hrs Laboratory Tests Test 01/16/17 12:51 01/16/17 14:15 01/16/17 17:20 01/16/17 20:53 Bedside Glucose 161 177 160 Body Fluid Type PARACENTHESIS Body Fluid Volume 1000.0 Body Fluid Color YELLOW Body Fluid Appearance CLEAR Body Fluid WBC 116 Body Fluid RBC (Auto) 0 Body Fluid Polynuclear WBCs (%) 51.7 Body Fluid Mononuclear Cells % Auto 48.3 Test 01/17/17 01:20 01/17/17 04:15 01/17/17 05:04 01/17/17 07:11 Bedside Glucose 148 147 White Blood Count 26.8 H Red Blood Count 2.31 L Hemoglobin 8.0 L Hematocrit 25.7 L Mean Corpuscular Volume 111.3 H Mean Corpuscular Hemoglobin 34.6 H Mean Corpuscular Hemoglobin Concent 31.1 L Red Cell Distribution Width 24.2 H Platelet Count 93 L Mean Platelet Volume 12.9 H Neutrophils % 90.5 H Lymphocytes % 2.3 L Monocytes % 4.5 Eosinophils % 0.0 Basophils % 0.1 Nucleated Red Blood Cells % 0.0 Neutrophils # 24.3 H Lymphocytes # 0.6 L Monocytes # 1.2 H Eosinophils # 0.0 Basophils # 0.0 Nucleated Red Blood Cells # 0.0 Phosphorus Level 4.5 Magnesium Level 1.8 Ammonia 46 H Sodium Level 156 H Potassium Level 3.7 Chloride Level 125 H Carbon Dioxide Level 21 Anion Gap 14 Blood Urea Nitrogen 86 H Creatinine 2.07 H Glucose Level 133 Calcium Level 9.1 Total Bilirubin 26.7 H Direct Bilirubin 24.40 *H Indirect Bilirubin 2.3 H Aspartate Amino Transf (AST/SGOT) 234 H Alanine Aminotransferase (ALT/SGPT) 84 H Alkaline Phosphatase 343 H Total Protein 6.7 Albumin 2.6 L Globulin 4.10 H Albumin/Globulin Ratio 0.63 Test 01/17/17 08:24 Bedside Glucose 126 Medications Medications Current Medications Ondansetron HCl (Zofran Inj) 4 mg Q6H PRN IV NAUSEA AND/OR VOMITING Last administered on 01/03/17 14:52; Admin Dose 4 MG; Start 01/02/17 at 23:00 Docusate Sodium (Colace) 100 mg Q12H PRN PO CONSTIPATION; Start 01/02/17 at 23: 00 Rifaximin (Xifaxan) 550 mg BID PO Last administered on 01/17/17 08:25; Admin Dose 550 MG; Start 01/04/17 at 11:00 IV Flush (NS 10 ml) 10 ml PRN PRN IV IV PROTOCOL; Start 01/05/17 at 18:30 Diagnostic Test (Pha) (Accu-Chek) 1 ea Q4 XX Last administered on 01/17/17 08: 25; Admin Dose 1 EA; Start 01/06/17 at 17:00 Diazepam (Valium) 10 mg Q2H PRN IV ANXIETY Last administered on 01/08/17 01:43 ; Admin Dose 10 MG; Start 01/07/17 at 12:00 Pantoprazole 40 mg 40 mg DAILY IV Last administered on 01/17/17 08:25; Admin Dose 40 MG; Start 01/09/17 at 09:00 Meropenem/Sodium Chloride 50 ml @ 100 mls/hr Q12 IVPB Last administered on 08:24; Admin Dose 100 MLS/HR; Start 01/09/17 at 21:00 Total Parenteral Nutrition (Tpn) 1,000 ml @ 50 mls/hr Q20H IV Last administered on 01/16/17 17:19; Admin Dose 50 MLS/HR; Start 01/09/17 at 18:00 Prednisolone (Prelone (Ped)) 40 mg DAILY PO Last administered on 01/17/17 08: 25; Admin Dose 40 MG; Start 01/12/17 at 09:00 Citric Acid/ Sodium Citrate (Bicitra) 30 ml TID NGT Last administered on 08:25; Admin Dose 30 ML; Start 01/12/17 at 09:00 Lactulose (Enulose) 20 gm TID NGT Last administered on 01/17/17 08:25; Admin Dose 20 GM; Start 01/12/17 at 13:00 Nystatin 5 ml 5 ml QID PO Last administered on 01/17/17 08:25; Admin Dose 5 ML ; Start 01/13/17 at 17:00 Dextrose (D5W) 1,000 ml @ 20 mls/hr Q24H IV Last administered on 01/16/17 18: 27; Admin Dose 20 MLS/HR; Start 01/15/17 at 18:30 Insulin Aspart (Novolog Insulin Pen) NOVOLOG *MILD* ALGORI... Q4 SC Last administered on 01/17/17 05:21; Admin Dose 1 UNIT; Start 01/15/17 at 21:00 Miscellaneous Information 1 ea NOTE XX ; Start 01/15/17 at 18:30 Glucose (Glutose) 15 gm Q15M PRN PO DECREASED GLUCOSE; Start 01/15/17 at 18:30 Glucose (Glutose) 22.5 gm Q15M PRN PO DECREASED GLUCOSE; Start 01/15/17 at 18: 30 Dextrose (D50w Syringe) 25 ml Q15M PRN IV DECREASED GLUCOSE; Start 01/15/17 at 18:30 Dextrose (D50w Syringe) 50 ml Q15M PRN IV DECREASED GLUCOSE; Start 01/15/17 at 18:30 Glucagon (Glucagen) 1 mg Q15M PRN IM DECREASED GLUCOSE; Start 01/15/17 at 18:30 Glucose (Glutose) 15 gm Q15M PRN BUCCAL DECREASED GLUCOSE; Start 01/15/17 at 18 :30 Morphine Sulfate 1 mg 1 mg Q4H PRN IM PAIN Last administered on 01/17/17 01:41 ; Admin Dose 1 MG; Start 01/16/17 at 09:00 Octreotide Acetate 500 mcg/ Dextrose 50 ml @ 2.5 mls/hr Q20H IV Last administered on 01/17/17 05:05; Admin Dose 2.5 MLS/HR; Start 01/16/17 at 10:00 Vancomycin HCl/ Dextrose (Vancocin/D5W) 250 ml @ 83.333 mls/ hr Q48H IVPB ; Start 01/18/17 at 10:00 Metoclopramide HCl 5 mg 5 mg Q6 IV Last administered on 01/17/17 05:05; Admin Dose 5 MG; Start 01/16/17 at 18:00 Albumin Human (Albumin Human 25%) 100 ml @ 100 mls/hr DAILY IV Last administered on 01/17/17 09:01; Admin Dose 100 MLS/HR; Start 01/17/17 at 09:00 ; Stop 01/20/17 at 08:59 LAURA CORDERO MD Jan 17, 2017 11:24
--- NOTE | 2017-01-17 11:32 | CONS ---
Date/Time of Note Date/Time of Note DATE: 01/17/17 TIME: 11:29 Assessment/Plan Assessment/Plan Additional Assessment/Plan Is currently on Sandostatin drip at 25 mics per hour. TPN as well. Assessment and recommendations; 1. Patient admitted with hepatic enteropathy due to alcoholic cirrhosis status post extubation with continually improving clinical status. 2. Upper GI bleed, currently maintained on Sandostatin drip. Status post blood confusion. 3. Hepatorenal syndrome with continually improving renal function. 4. Severe hyperbilirubinemia. 5. Persistent leukocytosis. 6. Bilateral aspiration pneumonia with marked radiological improvement. 7. Generalized deconditioning. 8. Status post paracentesis yesterday. 2.5 L of fluid was removed. Continue current supportive care. Prognosis is guarded. Consultation Date/Type/Reason Admit Date/Time Jan 02, 2017 at 19:30 Initial Consult Date 01/07/17 Type of Consultation: Pulmonary/care Referring Provider: BRAEDEN LUNSFORD MD 24 HR Interval Summary Free Text/Dictation Patient's condition remains stable. He is completely awake and alert. Able to talk. However speech is slurred. Has remained hemodynamically stable. General exam; young male, awake, currently no distress. Exam/Review of Systems Vital Signs Vitals Vital Signs Date Time Temp Pulse Resp B/P Pulse Ox O2 Delivery O2 Flow Rate FiO2 01/17/17 11:00 87 15 137/78 99 Nasal Cannula 01/17/17 08:00 2.0 01/17/17 08:00 97.9 01/15/17 11:00 30 Intake and Output 01/16/17 01/16/17 01/17/17 15:00 23:00 07:00 Intake Total 1225.00 ml 640.0 ml 577.5 ml Output Total 1235 ml 1245 ml 1030 ml Balance -10.00 ml -605.0 ml -452.5 ml Exam HEENT exam; supple neck, no JVD. No lymphadenopathy. Midline trachea. No thyromegaly. Patient remains deeply icteric. Has multiple carious teeth. No active oral bleeding seen. Pupils are small bilaterally. Chest exam; clear to auscultation. S1-S2 audible, no murmurs. Regular rhythm. Tachycardic. Abdomen exam; soft, nontender. No organomegaly. Bowel sounds are absent. Extremity exam; no edema. Pulses 1+ bilaterally. LIGHTNING PROTECTION INSTALLER exam; no focal motor deficit. Results Result Diagram: 01/17/17 0415 01/17/17 0711 Results 24 hrs Laboratory Tests Test 01/16/17 12:51 01/16/17 14:15 01/16/17 17:20 01/16/17 20:53 Bedside Glucose 161 177 160 Body Fluid Type PARACENTHESIS Body Fluid Volume 1000.0 Body Fluid Color YELLOW Body Fluid Appearance CLEAR Body Fluid WBC 116 Body Fluid RBC (Auto) 0 Body Fluid Polynuclear WBCs (%) 51.7 Body Fluid Mononuclear Cells % Auto 48.3 Test 01/17/17 01:20 01/17/17 04:15 01/17/17 05:04 01/17/17 07:11 Bedside Glucose 148 147 White Blood Count 26.8 H Red Blood Count 2.31 L Hemoglobin 8.0 L Hematocrit 25.7 L Mean Corpuscular Volume 111.3 H Mean Corpuscular Hemoglobin 34.6 H Mean Corpuscular Hemoglobin Concent 31.1 L Red Cell Distribution Width 24.2 H Platelet Count 93 L Mean Platelet Volume 12.9 H Neutrophils % 90.5 H Lymphocytes % 2.3 L Monocytes % 4.5 Eosinophils % 0.0 Basophils % 0.1 Nucleated Red Blood Cells % 0.0 Neutrophils # 24.3 H Lymphocytes # 0.6 L Monocytes # 1.2 H Eosinophils # 0.0 Basophils # 0.0 Nucleated Red Blood Cells # 0.0 Phosphorus Level 4.5 Magnesium Level 1.8 Ammonia 46 H Sodium Level 156 H Potassium Level 3.7 Chloride Level 125 H Carbon Dioxide Level 21 Anion Gap 14 Blood Urea Nitrogen 86 H Creatinine 2.07 H Glucose Level 133 Calcium Level 9.1 Total Bilirubin 26.7 H Direct Bilirubin 24.40 *H Indirect Bilirubin 2.3 H Aspartate Amino Transf (AST/SGOT) 234 H Alanine Aminotransferase (ALT/SGPT) 84 H Alkaline Phosphatase 343 H Total Protein 6.7 Albumin 2.6 L Globulin 4.10 H Albumin/Globulin Ratio 0.63 Test 01/17/17 08:24 Bedside Glucose 126 Medications Medications Current Medications Ondansetron HCl (Zofran Inj) 4 mg Q6H PRN IV NAUSEA AND/OR VOMITING Last administered on 01/03/17t 14:52; Admin Dose 4 MG; Start 01/02/17 at 23:00 Docusate Sodium (Colace) 100 mg Q12H PRN PO CONSTIPATION; Start 01/02/17 at 23: 00 Rifaximin (Xifaxan) 550 mg BID PO Last administered on 01/17/17 08:25; Admin Dose 550 MG; Start 01/04/17 at 11:00 IV Flush (NS 10 ml) 10 ml PRN PRN IV IV PROTOCOL; Start 01/05/17 at 18:30 Diagnostic Test (Pha) (Accu-Chek) 1 ea Q4 XX Last administered on 01/17/17 08: 25; Admin Dose 1 EA; Start 01/06/17 at 17:00 Diazepam (Valium) 10 mg Q2H PRN IV ANXIETY Last administered on 01/08/17 01:43 ; Admin Dose 10 MG; Start 01/07/17 at 12:00 Pantoprazole 40 mg 40 mg DAILY IV Last administered on 01/17/17 08:25; Admin Dose 40 MG; Start 01/09/17 at 09:00 Meropenem/Sodium Chloride 50 ml @ 100 mls/hr Q12 IVPB Last administered on 08:24; Admin Dose 100 MLS/HR; Start 01/09/17 at 21:00 Total Parenteral Nutrition (Tpn) 1,000 ml @ 50 mls/hr Q20H IV Last administered on 01/16/17 17:19; Admin Dose 50 MLS/HR; Start 01/09/17 at 18:00 Prednisolone (Prelone (Ped)) 40 mg DAILY PO Last administered on 01/17/17 08: 25; Admin Dose 40 MG; Start 01/12/17 at 09:00 Citric Acid/ Sodium Citrate (Bicitra) 30 ml TID NGT Last administered on 08:25; Admin Dose 30 ML; Start 01/12/17 at 09:00 Lactulose (Enulose) 20 gm TID NGT Last administered on 01/17/17 08:25; Admin Dose 20 GM; Start 01/12/17 at 13:00 Nystatin 5 ml 5 ml QID PO Last administered on 01/17/17 08:25; Admin Dose 5 ML ; Start 01/13/17 at 17:00 Dextrose (D5W) 1,000 ml @ 20 mls/hr Q24H IV Last administered on 01/16/17 18: 27; Admin Dose 20 MLS/HR; Start 01/15/17 at 18:30 Insulin Aspart (Novolog Insulin Pen) NOVOLOG *MILD* ALGORI... Q4 SC Last administered on 01/17/17 05:21; Admin Dose 1 UNIT; Start 01/15/17 at 21:00 Miscellaneous Information 1 ea NOTE XX ; Start 01/15/17 at 18:30 Glucose (Glutose) 15 gm Q15M PRN PO DECREASED GLUCOSE; Start 01/15/17 at 18:30 Glucose (Glutose) 22.5 gm Q15M PRN PO DECREASED GLUCOSE; Start 01/15/17 at 18: 30 Dextrose (D50w Syringe) 25 ml Q15M PRN IV DECREASED GLUCOSE; Start 01/15/17 at 18:30 Dextrose (D50w Syringe) 50 ml Q15M PRN IV DECREASED GLUCOSE; Start 01/15/17 at 18:30 Glucagon (Glucagen) 1 mg Q15M PRN IM DECREASED GLUCOSE; Start 01/15/17 at 18:30 Glucose (Glutose) 15 gm Q15M PRN BUCCAL DECREASED GLUCOSE; Start 01/15/17 at 18 :30 Morphine Sulfate 1 mg 1 mg Q4H PRN IM PAIN Last administered on 01/17/17 01:41 ; Admin Dose 1 MG; Start 01/16/17 at 09:00 Octreotide Acetate 500 mcg/ Dextrose 50 ml @ 2.5 mls/hr Q20H IV Last administered on 01/17/17 05:05; Admin Dose 2.5 MLS/HR; Start 01/16/17 at 10:00 Vancomycin HCl/ Dextrose (Vancocin/D5W) 250 ml @ 83.333 mls/ hr Q48H IVPB ; Start 01/18/17 at 10:00 Metoclopramide HCl 5 mg 5 mg Q6 IV Last administered on 01/17/17 05:05; Admin Dose 5 MG; Start 01/16/17 at 18:00 Albumin Human (Albumin Human 25%) 100 ml @ 100 mls/hr DAILY IV Last administered on 01/17/17 09:01; Admin Dose 100 MLS/HR; Start 01/17/17 at 09:00 ; Stop 01/20/17 at 08:59 NERI MCKEON Jan 17, 2017 11:32
[2017-01-17] MEDS: VANCOMYCIN 750 MG in DEXTROSE 5% 150 ML IVPB SCH (13:49)
[2017-01-17] MEDS: TPN 1,000 ML IV SCH (13:50)
--- NOTE | 2017-01-17 15:15 | PN ---
DATE: 01/17/2017 SUBJECTIVE DATA: No acute events overnight. The patient is awake, looks comfortable. No fevers. Temperature 97.5, pulse respirations 20, blood pressure 133/73. Saturation 100 on 2 L. WBC 26.8, H and H 8 and 25.7, platelets 93,000 and neutrophils 90.5. BUN 86, creatinine 2.07, total bili 26.7, AST 234, ALT 84. MICROBIOLOGY: Cultures have been negative. Ascitic fluid with WBC of 116. ANTIMICROBIALS: The patient is on vancomycin and meropenem. INDWELLING: NG-tube, [place], rectal tube, and PICC line. PHYSICAL EXAMINATION: GENERAL: This is a well-developed, well-nourished, ill-appearing middle-aged, [place] man who is awake, in no distress. HEENT: Head atraumatic, normocephalic. Sclerae anicteric. Buccal mucosa dry. NECK: Supple. CHEST: Rise symmetrical. Breath sounds diminished at the bases. HEART: S1, S2. ABDOMEN: Soft, bowel sounds present. Bowel sounds present. EXTREMITIES: Without cyanosis. SKIN: Positive for jaundice. ASSESSMENT: 1. Severe sepsis status post-hock. 2. Acute alcoholic pancreatitis. 3. Decompensating liver cirrhosis. 4. Status post-respiratory failure. 5. Ileus. 6. Acute renal failure. 7. Status post-paracentesis yesterday with a 2.8 L being removed, and preliminary cultures negative. PLAN: The patient remains stable, clinically improving. He is being followed by multiple consultants. Continue present care. Antibiotics. Continue anti-aspiration measures. Dictated By: Thom Loyd NP /derek/shayy /Document#: [id number]
[2017-01-17] MEDS: DEXTROSE 5% 1,000 ML IV SCH (17:55)
--- NOTE | 2017-01-17 19:15 | PN ---
Date/Time of Note Date/Time of Note DATE: 01/17/17 TIME: 19:13 Assessment/Plan VTE Prophylaxis VTE Prophylaxis Intervention: other Lines/Catheters IV Catheter Type (from Nrs): PICC Line Central line still needed: Yes Urinary Cath still in place: Yes Reason Cath still needed: other (indicate) Assessment/Plan Chief Complaint/Hosp Course # Acute on chronic liver failure likely Etoh abuse with elevated INR, Hyperbilirubenemia, low platelets, # Hepatic encephalopathy # ETOH withdrawal S/P # ETOH pancreatitis # Non Gap Acidosis likely combination of renal failure and diarrhoea # Leukocytosis could be pancreatitis vs Alcholic hepatitis # Hypoxic Respiratory failure s/p extubated on 01/15 # Thrombocytopenia # Anemia # s/P EGD with gastritis # Ileus s/p Small bowel follow thru which is negative, PLAN TPN [facility] LABS albumin Problems: Subjective 24 Hr Interval Summary Subjective hx not possible: other (confused but better) Exam/Review of Systems Vital Signs Vitals Vital Signs Date Time Temp Pulse Resp B/P Pulse Ox O2 Delivery O2 Flow Rate FiO2 01/17/17 18:00 77 13 138/70 100 Nasal Cannula 2.0 01/17/17 16:00 97.9 01/15/17 11:00 30 Intake and Output 01/16/17 01/16/17 01/17/17 15:00 23:00 07:00 Intake Total 1225.00 ml 640.0 ml 647.5 ml Output Total 1235 ml 1245 ml 1030 ml Balance -10.00 ml -605.0 ml -382.5 ml Exam Respiratory: clear to auscultation Cardiovascular: regular rate and rhythm Gastrointestinal: bowel sounds (+), soft Results Result Diagram: 01/17/17 0415 01/17/17 0711 Results 24 hrs Laboratory Tests Test 01/16/17 20:53 01/17/17 01:20 01/17/17 04:15 01/17/17 05:04 Bedside Glucose 160 148 147 White Blood Count 26.8 H Red Blood Count 2.31 L Hemoglobin 8.0 L Hematocrit 25.7 L Mean Corpuscular Volume 111.3 H Mean Corpuscular Hemoglobin 34.6 H Mean Corpuscular Hemoglobin Concent 31.1 L Red Cell Distribution Width 24.2 H Platelet Count 93 L Mean Platelet Volume 12.9 H Neutrophils % 90.5 H Lymphocytes % 2.3 L Monocytes % 4.5 Eosinophils % 0.0 Basophils % 0.1 Nucleated Red Blood Cells % 0.0 Neutrophils # 24.3 H Lymphocytes # 0.6 L Monocytes # 1.2 H Eosinophils # 0.0 Basophils # 0.0 Nucleated Red Blood Cells # 0.0 Phosphorus Level 4.5 Magnesium Level 1.8 Ammonia 46 H Test 01/17/17 07:11 01/17/17 08:24 01/17/17 13:53 01/17/17 17:27 Sodium Level 156 H Potassium Level 3.7 Chloride Level 125 H Carbon Dioxide Level 21 Anion Gap 14 Blood Urea Nitrogen 86 H Creatinine 2.07 H Glucose Level 133 Calcium Level 9.1 Total Bilirubin 26.7 H Direct Bilirubin 24.40 *H Indirect Bilirubin 2.3 H Aspartate Amino Transf (AST/SGOT) 234 H Alanine Aminotransferase (ALT/SGPT) 84 H Alkaline Phosphatase 343 H Total Protein 6.7 Albumin 2.6 L Globulin 4.10 H Albumin/Globulin Ratio 0.63 Bedside Glucose 126 169 181 Medications Medications Current Medications Ondansetron HCl (Zofran Inj) 4 mg Q6H PRN IV NAUSEA AND/OR VOMITING Last administered on 01/03/17 14:52; Admin Dose 4 MG; Start 01/02/17 at 23:00 Docusate Sodium (Colace) 100 mg Q12H PRN PO CONSTIPATION; Start 01/02/17 at 23: 00 Rifaximin (Xifaxan) 550 mg BID PO Last administered on 01/17/17 08:25; Admin Dose 550 MG; Start 01/04/17 at 11:00 IV Flush (NS 10 ml) 10 ml PRN PRN IV IV PROTOCOL; Start 01/05/17 at 18:30 Diagnostic Test (Pha) (Accu-Chek) 1 ea Q4 XX Last administered on 01/17/17 17: 52; Admin Dose 1 EA; Start 01/06/17 at 17:00 Diazepam (Valium) 10 mg Q2H PRN IV ANXIETY Last administered on 01/08/17 01:43 ; Admin Dose 10 MG; Start 01/07/17 at 12:00 Pantoprazole 40 mg 40 mg DAILY IV Last administered on 01/17/17 08:25; Admin Dose 40 MG; Start 01/09/17 at 09:00 Total Parenteral Nutrition (Tpn) 1,000 ml @ 50 mls/hr Q20H IV Last administered on 01/17/17 13:50; Admin Dose 50 MLS/HR; Start 01/09/17 at 18:00 Prednisolone (Prelone (Ped)) 40 mg DAILY PO Last administered on 01/17/17 08: 25; Admin Dose 40 MG; Start 01/12/17 at 09:00 Citric Acid/ Sodium Citrate (Bicitra) 30 ml TID NGT Last administered on 13:50; Admin Dose 30 ML; Start 01/12/17 at 09:00 Lactulose (Enulose) 20 gm TID NGT Last administered on 01/17/17 13:50; Admin Dose 20 GM; Start 01/12/17 at 13:00 Nystatin 5 ml 5 ml QID PO Last administered on 01/17/17 17:29; Admin Dose 5 ML ; Start 01/13/17 at 17:00 Dextrose (D5W) 1,000 ml @ 20 mls/hr Q24H IV Last administered on 01/17/17 17: 55; Admin Dose 20 MLS/HR; Start 01/15/17 at 18:30 Insulin Aspart (Novolog Insulin Pen) NOVOLOG *MILD* ALGORI... Q4 SC Last administered on 01/17/17 17:51; Admin Dose 2 UNIT; Start 01/15/17 at 21:00 Miscellaneous Information 1 ea NOTE XX ; Start 01/15/17 at 18:30 Glucose (Glutose) 15 gm Q15M PRN PO DECREASED GLUCOSE; Start 01/15/17 at 18:30 Glucose (Glutose) 22.5 gm Q15M PRN PO DECREASED GLUCOSE; Start 01/15/17 at 18: 30 Dextrose (D50w Syringe) 25 ml Q15M PRN IV DECREASED GLUCOSE; Start 01/15/17 at 18:30 Dextrose (D50w Syringe) 50 ml Q15M PRN IV DECREASED GLUCOSE; Start 01/15/17 at 18:30 Glucagon (Glucagen) 1 mg Q15M PRN IM DECREASED GLUCOSE; Start 01/15/17 at 18:30 Glucose (Glutose) 15 gm Q15M PRN BUCCAL DECREASED GLUCOSE; Start 01/15/17 at 18 :30 Morphine Sulfate 1 mg 1 mg Q4H PRN IM PAIN Last administered on 01/17/17 01:41 ; Admin Dose 1 MG; Start 01/16/17 at 09:00 Octreotide Acetate/Dextrose (Sandostatin/D5W) 50 ml @ 2.5 mls/hr Q20H IV Last administered on 01/17/17 05:05; Admin Dose 2.5 MLS/HR; Start 01/16/17 at 10:00 Metoclopramide HCl 5 mg 5 mg Q6 IV Last administered on 01/17/17 17:29; Admin Dose 5 MG; Start 01/16/17 at 18:00 Albumin Human 100 ml @ 100 mls/hr DAILY IV Last administered on 01/17/17 09: 01; Admin Dose 100 MLS/HR; Start 01/17/17 at 09:00; Stop 01/20/17 at 08:59 Vancomycin HCl 750 mg/Dextrose/ Water 150 ml @ 100 mls/hr Q24H IVPB Last administered on 01/17/17 13:49; Admin Dose 100 MLS/HR; Start 01/17/17 at 13:00 Meropenem/Sodium Chloride (Merrem 1 Gm/50 ml (Pmx)) 50 ml @ 100 mls/hr Q12 IVPB ; Start 01/17/17 at 21:00 JAYME BANSAL MD Jan 17, 2017 19:15
[2017-01-17] MEDS: MEROPENEM 1 GM/50ML(PMX) 50 ML IVPB SCH (21:27)
--- NOTE | 2017-01-17 21:56 | RADRPT ---
PROCEDURE: Portable chest x-ray. CLINICAL INDICATION: Nasogastric tube placement. TECHNIQUE: Portable AP view of the chest. COMPARISON: 02/05/2015. FINDINGS: A nasogastric tube terminates in the stomach. A left upper extremity PICC terminates at the superior cavoatrial junction. No pulmonary edema or conolidation is identified. There is linear atelectasis in the left lower lung. The cardiac silhouette is magnified. No pleural effusion is seen. There i s no pneumothorax. IMPRESSION: 1. Nasogastric tube tip in the stomach. RPTAT: HTAR .Michael Bello MD, Date Time Electronically viewed and signed by .Michael Bello MD, on 01/17/2017 21:55 .R/
[2017-01-18] VITALS (24 sets, daily range): BP systolic 116–153; BP diastolic 65–100; PULSE 77–94; RESP 11–21
[2017-01-18] MEDS: ACCU-CHEK XX SCH ×6 (01:00→21:08)
[2017-01-18] MEDS: INSULIN ASPART [NOVOLOG] 3 ML PEN SC SCH ×6 (01:00→21:00)
[2017-01-18 05:28] LABS: ABNORMAL IP MESSAGE 1; BASOPHILS % 0.1 % (0.0-2.0); EOSINOPHILS % 0.1 % (0.0-7.0); HEMATOCRIT 26.6 % (42.0-52.0); HEMOGLOBIN 8.6 g/dl (14.0-18.0); LYMPHOCYTES # 1.1 10^3/ul (0.8-2.9); LYMPHOCYTES % 3.7 % (15.0-51.0); MEAN CORPUSCULAR HEMOGLOBIN 34.5 pg (29.0-33.0); MEAN CORPUSCULAR HGB CONC 32.3 g/dl (32.0-37.0); MEAN CORPUSCULAR VOLUME 106.8 fl (82.0-101.0); MEAN PLATELET VOLUME 12.3 fl (7.4-10.4); MONOCYTE # 1.5 10^3/ul (0.3-0.9); MONOCYTES % 4.9 % (0.0-11.0); NEUTROPHIL # 26.4 10^3/ul (1.6-7.5); NEUTROPHILS % 87.2 % (39.0-77.0); NUCLEATED RED BLOOD CELLS% 0.1 /100WBC (0.0-0.0); PLATELET COUNT 97 10^3/UL (140-415); POSITIVE DIFF @See below; RED BLOOD COUNT 2.49 10^6/ul (4.70-6.10); WHITE BLOOD COUNT 30.3 10^3/ul (4.8-10.8)
[2017-01-18] MEDS: METOCLOPRAMIDE 10 MG INJ IV SCH ×3 (05:37→18:08)
[2017-01-18 05:53] LABS: ALBUMIN 2.8 g/dl (3.3-4.9); ALBUMIN/GLOBULIN RATIO 0.71; BILIRUBIN,INDIRECT 2.7 mg/dl (0-1.1); CALCIUM 9.2 mg/dl (8.4-10.2); CREATININE 1.82 mg/dl (0.61-1.24); POTASSIUM 3.6 mmol/L (3.5-5.1); TOTAL PROTEIN 6.7 g/dl (6.1-8.1)
[2017-01-18 06:31] LABS: BILIRUBIN,DIRECT 25.3 mg/dl (0.00-0.20)
[2017-01-18] MEDS: ALBUMIN HUMAN 25% 100 ML IV SCH (08:20)
[2017-01-18] MEDS: CITRIC ACID/NA CITRATE 30 ML CUP NGT SCH ×3 (08:26→21:05)
[2017-01-18] MEDS: LACTULOSE 30ML CUP NGT SCH ×3 (08:26→21:07)
[2017-01-18] MEDS: NYSTATIN SUSP 5 ML CUP PO SCH ×4 (08:26→21:05)
[2017-01-18] MEDS: PANTOPRAZOLE 40 MG INJ IV SCH (08:26)
[2017-01-18] MEDS: RIFAXIMIN 550 MG TAB PO SCH ×2 (08:26→21:05)
[2017-01-18] MEDS: predniSOLONE (3 MG/ML PO SYG) PO SCH (08:27)
[2017-01-18] MEDS: BALSAM PERU/CASTOR OIL 60 GM TUBE TOP SCH ×2 (08:59→21:08)
[2017-01-18] MEDS: MEROPENEM 1 GM/50ML(PMX) 50 ML IVPB SCH ×2 (09:52→21:05)
[2017-01-18] MEDS ORDERED: VANCOMYCIN 1.25 GM in DEXTROSE 5% 250 ML IVPB SCH (10:00)
--- NOTE | 2017-01-18 11:52 | CONS ---
Date/Time of Note Date/Time of Note DATE: 01/18/17 TIME: 11:51 Assessment/Plan Assessment/Plan Additional Assessment/Plan Additional Assessment/Plan IMPRESSION: 1. Delirium tremens. The patient is now intubated and on propofol 2. Hepatic encephalopathy. Ammonia is 47 partly related to propofol and Ativan 3. Alcoholic liver disease. Patient is on prednisolone 4. Pancreatitis. Amylase has come down . Lipase is down 5. Leukocytosis. WBC count is coming down slowly 6. Renal insufficiency. Though the urine output is good. Renal function has improved a lot with good urine output. Creatinine is coming down. Now it is 3.2 7. Pedal edema and ascites, reducing 8. Thrombocytopenia 9. Ileus, small bowel follow-through was negative 10. Patient's gastroparesis might be related to uremia Plan 1. Continue prednisolone 2. Discontinue all flushes through NG tube, which is increasing fluid overload 3. Patient is off propofol for more than 8 hours, he is moving all his extremities and responding to his name. Patient is also not tachycardic. I discussed with tool polishing machine operator to try the weaning process. 4. Reduce IV fluid since patient is third spacing, may need albumin. 5. Since the kidney function is improving and the urine output is good I would continue octreotide 6. We will monitor WBC, INR, total bilirubin, and creatinine on a regular basis 7. I had [id number] discussion with the mother and the family members and also with the remote inpatient coder and tool polishing machine operator. 8. If bilirubin does not come down I may add pentoxifylline 400 mg once a day 9. successfully extubated. Will continue with the present care. 10. Please avoid narcotics and also Ativan patient confusional state is secondary to hepatic encephalopathy 11. Abdominal paracentesis done 2-1/2 L liters of fluid removed 12. Physical therapy and discontinue Ativan Consultation Date/Type/Reason Admit Date/Time Jan 02, 2017 at 19:30 Type of Consultation: Pulmonary/care Referring Provider: BRAEDEN LUNSFORD MD 24 HR Interval Summary Free Text/Dictation Patient pulled out NG tube yesterday. No other complaints Exam/Review of Systems Vital Signs Vitals Vital Signs Date Time Temp Pulse Resp B/P Pulse Ox O2 Delivery O2 Flow Rate FiO2 01/18/17 08:00 97.7 87 16 136/75 100 Nasal Cannula 2.0 01/18/17 05:59 28 Intake and Output 01/17/17 01/17/17 01/18/17 15:00 23:00 07:00 Intake Total 1170 ml 622.5 ml 540.0 ml Output Total 1200 ml 1375 ml 974 ml Balance -30 ml -752.5 ml -434.0 ml Exam Constitutional: alert, oriented, well developed Psych: nl mood/affect, no complaints Head: atraumatic, normocephalic Eyes: EOMI, PERRL, nl conjunctiva, nl lids, nl sclera ENMT: nl external ears & nose, nl lips & teeth, nl nasal mucosa & septum Neck: non-tender, supple Respiratory: clear to auscultation, normal air movement Cardiovascular: nl pulses, regular rate and rhythm Gastrointestinal: nl liver, spleen, non-tender, soft Musculoskeletal: nl extremities to inspection, nl gait and stance Extremities: normal pulses Neurological: FARMER CASH GRAIN II-XII intact, nl mental status, nl speech, nl strength Skin: nl turgor, No rash or lesions Lymph: nl lymph nodes Results Result Diagram: 01/18/17 0500 01/18/17 0500 Results 24 hrs Laboratory Tests Test 01/17/17 13:53 01/17/17 17:27 01/17/17 21:25 01/18/17 02:02 Bedside Glucose 169 181 150 140 Test 01/18/17 05:00 01/18/17 05:12 01/18/17 08:55 White Blood Count 30.3 H Red Blood Count 2.49 L Hemoglobin 8.6 L Hematocrit 26.6 L Mean Corpuscular Volume 106.8 H Mean Corpuscular Hemoglobin 34.5 H Mean Corpuscular Hemoglobin Concent 32.3 Red Cell Distribution Width 24.0 H Platelet Count 97 L Mean Platelet Volume 12.3 H Neutrophils % 87.2 H Lymphocytes % 3.7 L Monocytes % 4.9 Eosinophils % 0.1 Basophils % 0.1 Nucleated Red Blood Cells % 0.1 H Neutrophils # 26.4 H Lymphocytes # 1.1 Monocytes # 1.5 H Eosinophils # 0.0 Basophils # 0.0 Nucleated Red Blood Cells # 0.0 Sodium Level 159 H Potassium Level 3.6 Chloride Level 124 H Carbon Dioxide Level 24 Anion Gap 15 Blood Urea Nitrogen 82 H Creatinine 1.82 H Glucose Level 131 Calcium Level 9.2 Total Bilirubin 28.0 H Direct Bilirubin 25.30 *H Indirect Bilirubin 2.7 H Aspartate Amino Transf (AST/SGOT) 202 H Alanine Aminotransferase (ALT/SGPT) 84 H Alkaline Phosphatase 346 H Total Protein 6.7 Albumin 2.8 L Globulin 3.90 H Albumin/Globulin Ratio 0.71 Bedside Glucose 116 128 Medications Medications Current Medications Ondansetron HCl (Zofran Inj) 4 mg Q6H PRN IV NAUSEA AND/OR VOMITING Last administered on 01/03/17 14:52; Admin Dose 4 MG; Start 01/02/17 at 23:00 Docusate Sodium (Colace) 100 mg Q12H PRN PO CONSTIPATION; Start 01/02/17 at 23: 00 Rifaximin (Xifaxan) 550 mg BID PO Last administered on 01/18/17 08:26; Admin Dose 550 MG; Start 01/04/17 at 11:00 IV Flush (NS 10 ml) 10 ml PRN PRN IV IV PROTOCOL; Start 01/05/17 at 18:30 Diagnostic Test (Pha) (Accu-Chek) 1 ea Q4 XX Last administered on 01/18/17 08: 59; Admin Dose 1 EA; Start 01/06/17 at 17:00 Diazepam (Valium) 10 mg Q2H PRN IV ANXIETY Last administered on 01/08/17 01:43 ; Admin Dose 10 MG; Start 01/07/17 at 12:00 Pantoprazole 40 mg 40 mg DAILY IV Last administered on 01/18/17 08:26; Admin Dose 40 MG; Start 01/09/17 at 09:00 Total Parenteral Nutrition (Tpn) 1,000 ml @ 50 mls/hr Q20H IV Last administered on 01/17/17 13:50; Admin Dose 50 MLS/HR; Start 01/09/17 at 18:00 Prednisolone (Prelone (Ped)) 40 mg DAILY PO Last administered on 01/18/17 08: 27; Admin Dose 40 MG; Start 01/12/17 at 09:00 Citric Acid/ Sodium Citrate (Bicitra) 30 ml TID NGT Last administered on 08:26; Admin Dose 30 ML; Start 01/12/17 at 09:00 Lactulose (Enulose) 20 gm TID NGT Last administered on 01/18/17 08:26; Admin Dose 20 GM; Start 01/12/17 at 13:00 Nystatin 5 ml 5 ml QID PO Last administered on 01/18/17 08:26; Admin Dose 5 ML ; Start 01/13/17 at 17:00 Dextrose (D5W) 1,000 ml @ 20 mls/hr Q24H IV Last administered on 01/17/17 17: 55; Admin Dose 20 MLS/HR; Start 01/15/17 at 18:30 Insulin Aspart (Novolog Insulin Pen) NOVOLOG *MILD* ALGORI... Q4 SC Last administered on 01/17/17 21:33; Admin Dose 1 UNIT; Start 01/15/17 at 21:00 Miscellaneous Information 1 ea NOTE XX ; Start 01/15/17 at 18:30 Glucose (Glutose) 15 gm Q15M PRN PO DECREASED GLUCOSE; Start 01/15/17 at 18:30 Glucose (Glutose) 22.5 gm Q15M PRN PO DECREASED GLUCOSE; Start 01/15/17 at 18: 30 Dextrose (D50w Syringe) 25 ml Q15M PRN IV DECREASED GLUCOSE; Start 01/15/17 at 18:30 Dextrose (D50w Syringe) 50 ml Q15M PRN IV DECREASED GLUCOSE; Start 01/15/17 at 18:30 Glucagon (Glucagen) 1 mg Q15M PRN IM DECREASED GLUCOSE; Start 01/15/17 at 18:30 Glucose (Glutose) 15 gm Q15M PRN BUCCAL DECREASED GLUCOSE; Start 01/15/17 at 18 :30 Morphine Sulfate 1 mg 1 mg Q4H PRN IM PAIN Last administered on 01/17/17 01:41 ; Admin Dose 1 MG; Start 01/16/17 at 09:00 Octreotide Acetate/Dextrose (Sandostatin/D5W) 50 ml @ 2.5 mls/hr Q20H IV Last administered on 01/17/17 23:00; Admin Dose 2.5 MLS/HR; Start 01/16/17 at 10:00 Metoclopramide HCl 5 mg 5 mg Q6 IV Last administered on 01/18/17 05:37; Admin Dose 5 MG; Start 01/16/17 at 18:00 Albumin Human 100 ml @ 100 mls/hr DAILY IV Last administered on 01/18/17 08: 20; Admin Dose 100 MLS/HR; Start 01/17/17 at 09:00; Stop 01/20/17 at 08:59 Vancomycin HCl 750 mg/Dextrose/ Water 150 ml @ 100 mls/hr Q24H IVPB Last administered on 01/17/17 13:49; Admin Dose 100 MLS/HR; Start 01/17/17 at 13:00 Meropenem/Sodium Chloride (Merrem 1 Gm/50 ml (Pmx)) 50 ml @ 100 mls/hr Q12 IVPB Last administered on 01/18/17 09:52; Admin Dose 100 MLS/HR; Start at 21:00 Lorazepam (Ativan) 0.5 mg HS PO ; Start 01/18/17 at 21:00 LAURA CORDERO MD Jan 18, 2017 11:52
[2017-01-18] MEDS: TPN 1,000 ML IV SCH (12:01)
--- NOTE | 2017-01-18 12:14 | CONS ---
Date/Time of Note Date/Time of Note DATE: 01/18/17 TIME: 12:11 Assessment/Plan Assessment/Plan Additional Assessment/Plan Assessment and recommendations; 1. Patient admitted with severe hepatic enthesopathy due to alcoholic cirrhosis status post extubation with stable clinical status. 2. Persistent severe hyperbilirubinemia. 3. Hyponatremia. Patient started on free water administration. 4. Hepatorenal syndrome with continually improving renal function. 5. Status post upper GI bleed with EGD. No active bleeding currently seen. 6. Altered mental status. 7. Severe leukocytosis. Continue current treatment. Add Diflucan 200 mg IV every 12 hours. Prognosis is guarded. Consultation Date/Type/Reason Admit Date/Time Jan 02, 2017 at 19:30 Initial Consult Date 01/07/17 Type of Consultation: Pulmonary/care Referring Provider: BRAEDEN LUNSFORD MD 24 HR Interval Summary Free Text/Dictation Patient's condition remains tenuous at best. Patient however has remained hemodynamically stable and is quite awake and alert. Still exhibiting slurred speech. No overt bleeding noted. General exam; young male, awake, currently in no distress. Exam/Review of Systems Vital Signs Vitals Vital Signs Date Time Temp Pulse Resp B/P Pulse Ox O2 Delivery O2 Flow Rate FiO2 01/18/17 08:00 97.7 87 16 136/75 100 Nasal Cannula 2.0 01/18/17 05:59 28 Intake and Output 01/17/17 01/17/17 01/18/17 15:00 23:00 07:00 Intake Total 1170 ml 622.5 ml 540.0 ml Output Total 1200 ml 1375 ml 974 ml Balance -30 ml -752.5 ml -434.0 ml Exam HEENT exam; supple neck, no JVD. No lymphadenopathy. Midline trachea. No thyromegaly. Patient has multiple carious teeth. No active oral bleeding seen. Patient remains deeply icteric. Chest exam; diminished but clear breath sounds. S1-S2 audible, no murmurs. Regular rhythm. Abdomen exam; protuberant. Bowel sounds absent. Nontender. Extremity exam; no edema. FERMENTATION SCIENTIST exam; patient is awake and follows very simple commands. Results Result Diagram: 01/18/17 0500 01/18/17 0500 Results 24 hrs Laboratory Tests Test 01/17/17 13:53 01/17/17 17:27 01/17/17 21:25 01/18/17 02:02 Bedside Glucose 169 181 150 140 Test 01/18/17 05:00 01/18/17 05:12 01/18/17 08:55 White Blood Count 30.3 H Red Blood Count 2.49 L Hemoglobin 8.6 L Hematocrit 26.6 L Mean Corpuscular Volume 106.8 H Mean Corpuscular Hemoglobin 34.5 H Mean Corpuscular Hemoglobin Concent 32.3 Red Cell Distribution Width 24.0 H Platelet Count 97 L Mean Platelet Volume 12.3 H Neutrophils % 87.2 H Lymphocytes % 3.7 L Monocytes % 4.9 Eosinophils % 0.1 Basophils % 0.1 Nucleated Red Blood Cells % 0.1 H Neutrophils # 26.4 H Lymphocytes # 1.1 Monocytes # 1.5 H Eosinophils # 0.0 Basophils # 0.0 Nucleated Red Blood Cells # 0.0 Sodium Level 159 H Potassium Level 3.6 Chloride Level 124 H Carbon Dioxide Level 24 Anion Gap 15 Blood Urea Nitrogen 82 H Creatinine 1.82 H Glucose Level 131 Calcium Level 9.2 Total Bilirubin 28.0 H Direct Bilirubin 25.30 *H Indirect Bilirubin 2.7 H Aspartate Amino Transf (AST/SGOT) 202 H Alanine Aminotransferase (ALT/SGPT) 84 H Alkaline Phosphatase 346 H Total Protein 6.7 Albumin 2.8 L Globulin 3.90 H Albumin/Globulin Ratio 0.71 Bedside Glucose 116 128 Medications Medications Current Medications Ondansetron HCl (Zofran Inj) 4 mg Q6H PRN IV NAUSEA AND/OR VOMITING Last administered on 01/03/17 14:52; Admin Dose 4 MG; Start 01/02/17 at 23:00 Docusate Sodium (Colace) 100 mg Q12H PRN PO CONSTIPATION; Start 01/02/17 at 23: 00 Rifaximin (Xifaxan) 550 mg BID PO Last administered on 01/18/17 08:26; Admin Dose 550 MG; Start 01/04/17 at 11:00 IV Flush (NS 10 ml) 10 ml PRN PRN IV IV PROTOCOL; Start 01/05/17 at 18:30 Diagnostic Test (Pha) (Accu-Chek) 1 ea Q4 XX Last administered on 01/18/17 08: 59; Admin Dose 1 EA; Start 01/06/17 at 17:00 Diazepam (Valium) 10 mg Q2H PRN IV ANXIETY Last administered on 01/08/17 01:43 ; Admin Dose 10 MG; Start 01/07/17 at 12:00 Pantoprazole 40 mg 40 mg DAILY IV Last administered on 01/18/17 08:26; Admin Dose 40 MG; Start 01/09/17 at 09:00 Total Parenteral Nutrition (Tpn) 1,000 ml @ 50 mls/hr Q20H IV Last administered on 01/17/17 13:50; Admin Dose 50 MLS/HR; Start 01/09/17 at 18:00 Prednisolone (Prelone (Ped)) 40 mg DAILY PO Last administered on 01/18/17 08: 27; Admin Dose 40 MG; Start 01/12/17 at 09:00 Citric Acid/ Sodium Citrate (Bicitra) 30 ml TID NGT Last administered on 08:26; Admin Dose 30 ML; Start 01/12/17 at 09:00 Lactulose (Enulose) 20 gm TID NGT Last administered on 01/18/17 08:26; Admin Dose 20 GM; Start 01/12/17 at 13:00 Nystatin 5 ml 5 ml QID PO Last administered on 01/18/17 08:26; Admin Dose 5 ML ; Start 01/13/17 at 17:00 Dextrose (D5W) 1,000 ml @ 20 mls/hr Q24H IV Last administered on 01/17/17 17: 55; Admin Dose 20 MLS/HR; Start 01/15/17 at 18:30 Insulin Aspart (Novolog Insulin Pen) NOVOLOG *MILD* ALGORI... Q4 SC Last administered on 01/17/17 21:33; Admin Dose 1 UNIT; Start 01/15/17 at 21:00 Miscellaneous Information 1 ea NOTE XX ; Start 01/15/17 at 18:30 Glucose (Glutose) 15 gm Q15M PRN PO DECREASED GLUCOSE; Start 01/15/17 at 18:30 Glucose (Glutose) 22.5 gm Q15M PRN PO DECREASED GLUCOSE; Start 01/15/17 at 18: 30 Dextrose (D50w Syringe) 25 ml Q15M PRN IV DECREASED GLUCOSE; Start 01/15/17 at 18:30 Dextrose (D50w Syringe) 50 ml Q15M PRN IV DECREASED GLUCOSE; Start 01/15/17 at 18:30 Glucagon (Glucagen) 1 mg Q15M PRN IM DECREASED GLUCOSE; Start 01/15/17 at 18:30 Glucose (Glutose) 15 gm Q15M PRN BUCCAL DECREASED GLUCOSE; Start 01/15/17 at 18 :30 Morphine Sulfate 1 mg 1 mg Q4H PRN IM PAIN Last administered on 01/17/17 01:41 ; Admin Dose 1 MG; Start 01/16/17 at 09:00 Octreotide Acetate/Dextrose (Sandostatin/D5W) 50 ml @ 2.5 mls/hr Q20H IV Last administered on 01/17/17 23:00; Admin Dose 2.5 MLS/HR; Start 01/16/17 at 10:00 Metoclopramide HCl 5 mg 5 mg Q6 IV Last administered on 01/18/17 05:37; Admin Dose 5 MG; Start 01/16/17 at 18:00 Albumin Human 100 ml @ 100 mls/hr DAILY IV Last administered on 01/18/17 08: 20; Admin Dose 100 MLS/HR; Start 01/17/17 at 09:00; Stop 01/20/17 at 08:59 Vancomycin HCl 750 mg/Dextrose/ Water 150 ml @ 100 mls/hr Q24H IVPB Last administered on 01/17/17 13:49; Admin Dose 100 MLS/HR; Start 01/17/17 at 13:00 Meropenem/Sodium Chloride (Merrem 1 Gm/50 ml (Pmx)) 50 ml @ 100 mls/hr Q12 IVPB Last administered on 01/18/17 09:52; Admin Dose 100 MLS/HR; Start at 21:00 Lorazepam (Ativan) 0.5 mg HS PO ; Start 01/18/17 at 21:00 Pentoxifylline (Trental) 400 mg DAILY PO ; Start 01/18/17 at 14:00 NERI MCKEON Jan 18, 2017 12:14
[2017-01-18] MEDS ORDERED: FLUCONAZOLE 400 MG/NS (PMX) 200 ML IVPB SCH (13:30)
[2017-01-18] MEDS: VANCOMYCIN 750 MG in DEXTROSE 5% 150 ML IVPB SCH ×2 (13:44→15:47)
--- NOTE | 2017-01-18 15:19 | PN ---
DATE: 01/18/2017 INFECTIOUS DISEASE PROGRESS NOTE SUBJECTIVE: Patient is awake, looks comfortable, denies pain, no fevers, tolerates tube feeding. H e is on octreotide drip. VITAL SIGNS: Temperature 97.7, pulse 87, respirations 16, blood pressure 136/75, saturation 100 on 2 liters. WBC 30.8, H and H 8.6 and 26.6, platelets 97. BUN 82, creatinine 1.82, total bilirubin 28. MICROBIOLOGY: Cultures of the ascitic fluid remain negative. DIAGNOSTICS: Chest x-ray from yesterday revealed no acute abnormalities. ANTIMICROBIALS: 1. The patient remains on fluconazole. 2. Meropenem. 3. Vancomycin. INDWELLINGS: NG tube, [place], left upper extremity PICC line placed on 01/05/2017. PHYSICAL EXAMINATION: GENERAL: This is a well-developed, middle-aged [place] man who is in no distress. HEENT: Head atraumatic, normocephalic. Sclerae anicteric. Buccal mucosa dry. NECK: Supple. CHEST: Rise symmetrical. Breath sounds diminished to bases. HEART: S1, S2. ABDOMEN: Soft. Bowel tones hypoactive. EXTREMITIES: With trace edema. ASSESSMENT: 1. Severe sepsis status post shock. 2. Acute alcoholic pancreatitis. 3. Decompensated liver cirrhosis. 4. Ascites, status post paracentesis. So far, ascitic fluid cultures had been negative. 5. Acute renal failure, likely hepatorenal syndrome. 6. Oral thrush with endotracheal aspirate, grew Mary Lou albicans. PLAN: The patient remains stable, started on Trental per Dr. Mercer. He is covered with broad spec trum antibiotics. He is on prednisone 40 mg daily since 01/12/2017. He was started on fluconazole by pulmonary team to cover Mary Lou that he grew in the endotracheal aspirate. We will monitor his L FTs closely. The patient was previously on Cancidas that was discontinued because of high LFTs. Dictated By: ROSALIA BARKER WOOL HANKER for MADELAINE PLASENCIA/NTS Conf#: [id number] DID#: [id number]
[2017-01-18] MEDS: PENTOXIFYLLINE (SR) 400 MG TAB PO SCH (16:13)
[2017-01-18] MEDS: DEXTROSE 5% 1,000 ML IV SCH (18:08)
[2017-01-18] MEDS: OCTREOTIDE 500 MCG in DEXTROSE 5% 49 ML IV SCH (19:00)
--- NOTE | 2017-01-18 19:19 | PN ---
Date/Time of Note Date/Time of Note DATE: 01/18/17 TIME: 19:17 Assessment/Plan VTE Prophylaxis VTE Prophylaxis Intervention: other Lines/Catheters IV Catheter Type (from Nrs): PICC Line Central line still needed: Yes Urinary Cath still in place: Yes Reason Cath still needed: other (indicate) Assessment/Plan Chief Complaint/Hosp Course # Acute on chronic liver failure likely Etoh abuse with elevated INR, Hyperbilirubenemia, low platelets, # Hepatic encephalopathy # ETOH withdrawal S/P # ETOH pancreatitis # Non Gap Acidosis likely combination of renal failure and diarrhoea # Leukocytosis could be pancreatitis vs Alcholic hepatitis # Hypoxic Respiratory failure s/p extubated on 01/15 # Thrombocytopenia # Anemia # s/P EGD with gastritis # Ileus s/p Small bowel follow thru which is negative, PLAN TPN [facility] LABS albumin iv fluid Problems: Subjective 24 Hr Interval Summary Subjective hx not possible: other (confused ,no distress) Cardiovascular: no complaints Exam/Review of Systems Vital Signs Vitals Vital Signs Date Time Temp Pulse Resp B/P Pulse Ox O2 Delivery O2 Flow Rate FiO2 01/18/17 18:12 2.0 01/18/17 18:00 78 18 131/65 100 Room Air 01/18/17 16:00 98.3 01/18/17 05:59 28 Intake and Output 01/17/17 01/17/17 01/18/17 15:00 23:00 07:00 Intake Total 1170 ml 622.5 ml 540.0 ml Output Total 1200 ml 1375 ml 974 ml Balance -30 ml -752.5 ml -434.0 ml Exam Respiratory: clear to auscultation Cardiovascular: regular rate and rhythm Gastrointestinal: ascites (+), soft Extremities: edema (+) Results Result Diagram: 01/18/17 0500 01/18/17 0500 Results 24 hrs Laboratory Tests Test 01/17/17 21:25 01/18/17 02:02 01/18/17 05:00 01/18/17 05:12 Bedside Glucose 150 140 116 White Blood Count 30.3 H Red Blood Count 2.49 L Hemoglobin 8.6 L Hematocrit 26.6 L Mean Corpuscular Volume 106.8 H Mean Corpuscular Hemoglobin 34.5 H Mean Corpuscular Hemoglobin Concent 32.3 Red Cell Distribution Width 24.0 H Platelet Count 97 L Mean Platelet Volume 12.3 H Neutrophils % 87.2 H Lymphocytes % 3.7 L Monocytes % 4.9 Eosinophils % 0.1 Basophils % 0.1 Nucleated Red Blood Cells % 0.1 H Neutrophils # 26.4 H Lymphocytes # 1.1 Monocytes # 1.5 H Eosinophils # 0.0 Basophils # 0.0 Nucleated Red Blood Cells # 0.0 Sodium Level 159 H Potassium Level 3.6 Chloride Level 124 H Carbon Dioxide Level 24 Anion Gap 15 Blood Urea Nitrogen 82 H Creatinine 1.82 H Glucose Level 131 Calcium Level 9.2 Total Bilirubin 28.0 H Direct Bilirubin 25.30 *H Indirect Bilirubin 2.7 H Aspartate Amino Transf (AST/SGOT) 202 H Alanine Aminotransferase (ALT/SGPT) 84 H Alkaline Phosphatase 346 H Total Protein 6.7 Albumin 2.8 L Globulin 3.90 H Albumin/Globulin Ratio 0.71 Test 01/18/17 08:55 01/18/17 13:46 01/18/17 18:03 Bedside Glucose 128 174 185 Medications Medications Current Medications Ondansetron HCl (Zofran Inj) 4 mg Q6H PRN IV NAUSEA AND/OR VOMITING Last administered on 01/03/17 14:52; Admin Dose 4 MG; Start 01/02/17 at 23:00 Docusate Sodium (Colace) 100 mg Q12H PRN PO CONSTIPATION; Start 01/02/17 at 23: 00 Rifaximin (Xifaxan) 550 mg BID PO Last administered on 01/18/17 08:26; Admin Dose 550 MG; Start 01/04/17 at 11:00 IV Flush (NS 10 ml) 10 ml PRN PRN IV IV PROTOCOL; Start 01/05/17 at 18:30 Diagnostic Test (Pha) (Accu-Chek) 1 ea Q4 XX Last administered on 01/18/17 17: 00; Admin Dose 1 EA; Start 01/06/17 at 17:00 Diazepam (Valium) 10 mg Q2H PRN IV ANXIETY Last administered on 01/08/17 01:43 ; Admin Dose 10 MG; Start 01/07/17 at 12:00 Pantoprazole 40 mg 40 mg DAILY IV Last administered on 01/18/17 08:26; Admin Dose 40 MG; Start 01/09/17 at 09:00 Total Parenteral Nutrition (Tpn) 1,000 ml @ 50 mls/hr Q20H IV Last administered on 01/18/17 12:01; Admin Dose 50 MLS/HR; Start 01/09/17 at 18:00 Prednisolone (Prelone (Ped)) 40 mg DAILY PO Last administered on 01/18/17 08: 27; Admin Dose 40 MG; Start 01/12/17 at 09:00 Citric Acid/ Sodium Citrate (Bicitra) 30 ml TID NGT Last administered on 13:44; Admin Dose 30 ML; Start 01/12/17 at 09:00 Lactulose (Enulose) 20 gm TID NGT Last administered on 01/18/17 13:44; Admin Dose 20 GM; Start 01/12/17 at 13:00 Nystatin 5 ml 5 ml QID PO Last administered on 01/18/17 18:07; Admin Dose 5 ML ; Start 01/13/17 at 17:00 Dextrose (D5W) 1,000 ml @ 20 mls/hr Q24H IV Last administered on 01/18/17 18: 08; Admin Dose 20 MLS/HR; Start 01/15/17 at 18:30 Insulin Aspart (Novolog Insulin Pen) NOVOLOG *MILD* ALGORI... Q4 SC Last administered on 01/18/17 18:05; Admin Dose 2 UNIT; Start 01/15/17 at 21:00 Miscellaneous Information 1 ea NOTE XX ; Start 01/15/17 at 18:30 Glucose (Glutose) 15 gm Q15M PRN PO DECREASED GLUCOSE; Start 01/15/17 at 18:30 Glucose (Glutose) 22.5 gm Q15M PRN PO DECREASED GLUCOSE; Start 01/15/17 at 18: 30 Dextrose (D50w Syringe) 25 ml Q15M PRN IV DECREASED GLUCOSE; Start 01/15/17 at 18:30 Dextrose (D50w Syringe) 50 ml Q15M PRN IV DECREASED GLUCOSE; Start 01/15/17 at 18:30 Glucagon (Glucagen) 1 mg Q15M PRN IM DECREASED GLUCOSE; Start 01/15/17 at 18:30 Glucose (Glutose) 15 gm Q15M PRN BUCCAL DECREASED GLUCOSE; Start 01/15/17 at 18 :30 Morphine Sulfate 1 mg 1 mg Q4H PRN IM PAIN Last administered on 01/17/17 01:41 ; Admin Dose 1 MG; Start 01/16/17 at 09:00 Octreotide Acetate/Dextrose (Sandostatin/D5W) 50 ml @ 2.5 mls/hr Q20H IV Last administered on 01/17/17 23:00; Admin Dose 2.5 MLS/HR; Start 01/16/17 at 10:00 Metoclopramide HCl 5 mg 5 mg Q6 IV Last administered on 01/18/17 18:08; Admin Dose 5 MG; Start 01/16/17 at 18:00 Albumin Human 100 ml @ 100 mls/hr DAILY IV Last administered on 01/18/17 08: 20; Admin Dose 100 MLS/HR; Start 01/17/17 at 09:00; Stop 01/20/17 at 08:59 Vancomycin HCl 750 mg/Dextrose/ Water 150 ml @ 100 mls/hr Q24H IVPB Last administered on 01/18/17 15:47; Admin Dose 100 MLS/HR; Start 01/17/17 at 13:00 Meropenem/Sodium Chloride (Merrem 1 Gm/50 ml (Pmx)) 50 ml @ 100 mls/hr Q12 IVPB Last administered on 01/18/17 09:52; Admin Dose 100 MLS/HR; Start at 21:00 Lorazepam (Ativan) 0.5 mg HS PO ; Start 01/18/17 at 21:00 Pentoxifylline 400 mg 400 mg DAILY PO Last administered on 01/18/17 16:13; Admin Dose 400 MG; Start 01/18/17 at 14:00 Fluconazole (Diflucan 400 Mg/ NS (Pmx)) 200 ml @ 100 mls/hr Q24H IVPB Last administered on 01/18/17 14:19; Admin Dose 100 MLS/HR; Start 01/18/17 at 13:30 JAYME BANSAL MD Jan 18, 2017 19:19
[2017-01-18] MEDS: LORAZEPAM 0.5 MG TAB PO SCH (21:07)
--- NOTE | 2017-01-18 22:09 | PN ---
Date/Time of Note Date/Time of Note DATE: 01/18/17 TIME: 22:06 Assessment/Plan Lines/Catheters IV Catheter Type (from [facility]): PICC Line Minaya in Place (from [facility]): Yes Assessment/Plan Chief Complaint/Hosp Course 1. Paralytic ileus 2nd acute processes. SBFT negative. Improved -Monitor 2. Acute on chronic alcoholic pancreatitis with peripancreatic fluid: amylase/ lipase improving -Supportive measures -Judicious fluid management -Trend labs -Encourage cessation 3. Acute GI bleed from gastritis and esophageal varices secondary to alcoholism ; no output from ng tube. Stable -Transfuse as needed -Supportive measures: ppi -Correct coagulopathy and platelet dysfunction 4. Anemia secondary to above -As above 5. Leukocytosis, multifactorial with SIRS and steroid therapy, ? infectious; on abx therapy; -Close monitoring -Antibiotics 6. Alcoholic hepatitis with hepatosplenomegaly; worsening LFT's -Medical and GI optimization 7. Chronic alcohol abuse with Delirium Tremens; no tremors -Encourage cessation -Sedation/intubation 8. Subcapsular liver collection possible hematoma versus other -Monitor 9. Electrolyte imbalance -Correct with replacements and fluid management 10. Alcohol withdrawal with tachypnea, tachycardia and delirium tremens; improved -supportive 11. NICOLAS: output improving. Cr improving. -judicious fluids -avoid nephrotoxic meds Thank you, Problems: Subjective 24 Hr Interval Summary Improved abdominal distention s/p 2.5L paracentesis. Bowel function. Cr improving with uop. More alert. No fevers, chills, sob, congested cough, n/v/d /dysuria. No ngt output. Exam/Review of Systems Vital Signs Vitals Vital Signs Date Time Temp Pulse Resp B/P Pulse Ox O2 Delivery O2 Flow Rate FiO2 01/18/17 18:12 2.0 01/18/17 18:00 78 18 131/65 100 Room Air 01/18/17 16:00 98.3 01/18/17 05:59 28 Intake and Output 01/17/17 01/17/17 01/18/17 15:00 23:00 07:00 Intake Total 1170 ml 622.5 ml 540.0 ml Output Total 1200 ml 1375 ml 974 ml Balance -30 ml -752.5 ml -434.0 ml Exam Free Text/Dictation Constitutional: No distress, Not oriented. more alert Psych: No nl mood/affect Head: atraumatic, normocephalic, No hematomas, No lacerations Eyes: EOMI, PERRL, icteric ENMT: nl external ears & nose, nl lips & teeth, ng tube without drainage. Mucosa pink and dry. Neck: non-tender, supple, No jvd Respiratory: No congested cough, No labored breathing Cardiovascular: No edema, No regular rate and rhythm: SR Gastrointestinal: soft, non-tender, distended (improved). No rebound or guarding; +stool/gas Musculoskeletal: nl extremities to inspection, No joint tenderness; BLE edema Extremities: normal pulses, No calf tenderness, No cyanosis Neurological: Responsive Skin: rash or lesions (Jaundice), No diaphoresis, No nl turgor : minaya with luis output (improved; increased amount) Lymph: nl lymph nodes, nontender Results Result Diagram: 01/18/17 0500 01/18/17 0500 PETER TAMEZ MD Jan 18, 2017 22:09
[2017-01-18] MEDS: morphine 10 MG INJ IM PRN (23:55)
[2017-01-19] VITALS (19 sets, daily range): BP systolic 112–145; BP diastolic 64–113; PULSE 74–104; RESP 10–20
[2017-01-19] MEDS: INSULIN ASPART [NOVOLOG] 3 ML PEN SC SCH ×6 (00:52→20:52)
[2017-01-19] MEDS: ACCU-CHEK XX SCH ×6 (00:52→21:00)
[2017-01-19] MEDS: METOCLOPRAMIDE 10 MG INJ IV SCH ×4 (00:52→18:44)
[2017-01-19 05:15] LABS: ABNORMAL IP MESSAGE 1; HEMATOCRIT 26.2 % (42.0-52.0); HEMOGLOBIN 8.5 g/dl (14.0-18.0); MEAN CORPUSCULAR HEMOGLOBIN 34.7 pg (29.0-33.0); MEAN CORPUSCULAR HGB CONC 32.4 g/dl (32.0-37.0); MEAN CORPUSCULAR VOLUME 106.9 fl (82.0-101.0); MEAN PLATELET VOLUME 12.9 fl (7.4-10.4); NUCLEATED RED BLOOD CELLS% 0.1 /100WBC (0.0-0.0); PLATELET COUNT 102 10^3/UL (140-415); POSITIVE DIFF @See below; RED BLOOD COUNT 2.45 10^6/ul (4.70-6.10); RED CELL DISTRIBUTION WIDTH 24.3 % (11.5-14.5); WHITE BLOOD COUNT 30.6 10^3/ul (4.8-10.8)
[2017-01-19 05:45] LABS: ALBUMIN 2.7 g/dl (3.3-4.9); ALBUMIN/GLOBULIN RATIO 0.69; CREATININE 1.56 mg/dl (0.61-1.24); POTASSIUM 3.6 mmol/L (3.5-5.1); TOTAL PROTEIN 6.6 g/dl (6.1-8.1)
[2017-01-19 05:53] LABS: BILIRUBIN,TOTAL 29.2 mg/dl (0.2-1.3)
[2017-01-19 05:54] LABS: BILIRUBIN,DIRECT 26.2 mg/dl (0.00-0.20)
[2017-01-19 07:49] LABS: ANISOCYTOSIS 3+ (0-0); GIANT THROMBO% (M) 1 % (0-0); HYPOCHROMASIA 1+ (0-0); METAMYELOCYTES %M 1 % (0-0); MONOCYTES % (M) 8 % (0-11); MYELOCYTES % (M) 1 % (0-0); PLATELET ESTIMATE DECREASED; POIKILOCYTOSIS 2+ (0-0); POLYCHROMASIA 3+ (0-0)
[2017-01-19] MEDS: RIFAXIMIN 550 MG TAB PO SCH ×2 (08:58→20:36)
[2017-01-19] MEDS: NYSTATIN SUSP 5 ML CUP PO SCH ×4 (08:58→20:36)
[2017-01-19] MEDS: predniSOLONE (3 MG/ML PO SYG) PO SCH (08:59)
[2017-01-19] MEDS: PENTOXIFYLLINE (SR) 400 MG TAB PO SCH (08:59)
[2017-01-19] MEDS: PANTOPRAZOLE 40 MG INJ IV SCH (08:59)
[2017-01-19] MEDS: ALBUMIN HUMAN 25% 100 ML IV SCH (09:00)
[2017-01-19] MEDS: LACTULOSE 30ML CUP NGT SCH ×3 (09:00→20:36)
[2017-01-19] MEDS: CITRIC ACID/NA CITRATE 30 ML CUP NGT SCH ×3 (09:00→20:38)
[2017-01-19] MEDS: TPN 1,000 ML IV SCH (09:01)
[2017-01-19] MEDS: BALSAM PERU/CASTOR OIL 60 GM TUBE TOP SCH ×2 (09:01→20:38)
[2017-01-19] MEDS: MEROPENEM 1 GM/50ML(PMX) 50 ML IVPB SCH ×3 (09:04→23:39)
--- NOTE | 2017-01-19 11:27 | PN ---
Date/Time of Note Date/Time of Note DATE: 01/19/17 TIME: 11:20 Assessment/Plan Lines/Catheters IV Catheter Type (from [facility]): PICC Line Minaya in Place (from [facility]): Yes Assessment/Plan Chief Complaint/Hosp Course 1. Paralytic ileus 2nd acute processes. SBFT negative. Improved -Monitor 2. Acute on chronic alcoholic pancreatitis with peripancreatic fluid -Supportive measures -Judicious fluid management -Trend labs -Encourage cessation 3. Acute GI bleed from gastritis and esophageal varices secondary to alcoholism ; no output from ng tube. Stable -Transfuse as needed -Supportive measures: ppi -Correct coagulopathy and platelet dysfunction 4. Anemia secondary to above -As above 5. Leukocytosis, multifactorial with SIRS and steroid therapy, ? infectious; on abx therapy; -Close monitoring -Antibiotics 6. Alcoholic hepatitis with hepatosplenomegaly; worsening LFT's -Medical and GI optimization 7. Chronic alcohol abuse with Delirium Tremens; no tremors -Encourage cessation -Sedation/intubation 8. Subcapsular liver collection possible hematoma versus other -Monitor 9. Electrolyte imbalance -Correct with replacements and fluid management 10. Alcohol withdrawal with tachypnea, tachycardia and delirium tremens; improved -supportive 11. NICOLAS: output improving. -judicious fluids -avoid nephrotoxic meds Thank you. Patient seen and examined in collaboration with Dr. Bob Tristan. Problems: Subjective 24 Hr Interval Summary Off pressors, ngt out without n/v. +bowel function per rectal tube. No fevers, chills, sob, cp, palpitations, bateman, dizziness, abdominal pain/discomfort. Exam/Review of Systems Vital Signs Vitals Vital Signs Date Time Temp Pulse Resp B/P Pulse Ox O2 Delivery O2 Flow Rate FiO2 01/19/17 11:00 91 16 114/98 99 Room Air 01/19/17 08:00 98.5 01/18/17 18:12 2.0 01/18/17 05:59 28 Intake and Output 01/18/17 01/18/17 01/19/17 15:00 23:00 07:00 Intake Total 1050.0 ml 1380.0 ml 747.5 ml Output Total 1420 ml 1530 ml 720 ml Balance -370.0 ml -150.0 ml 27.5 ml Exam Free Text/Dictation Constitutional: No distress, Not oriented. more alert Psych: No nl mood/affect Head: atraumatic, normocephalic, No hematomas, No lacerations Eyes: EOMI, PERRL, icteric ENMT: nl external ears & nose, nl lips & teeth, ng tube without drainage. Mucosa pink and dry. Neck: non-tender, supple, No jvd Respiratory: No congested cough, No labored breathing Cardiovascular: No edema, No regular rate and rhythm: SR Gastrointestinal: soft, non-tender, distended (improved). No rebound or guarding; +stool/gas Musculoskeletal: nl extremities to inspection, No joint tenderness; BLE edema Extremities: normal pulses, No calf tenderness, No cyanosis Neurological: Responsive Skin: rash or lesions (Jaundice), No diaphoresis, No nl turgor : minaya with luis output (improved; increased amount) Lymph: nl lymph nodes, nontender Results Result Diagram: 01/19/17 0459 01/19/17 0459 ELIO GIBBONS NP Jan 19, 2017 11:27
--- NOTE | 2017-01-19 11:35 | CONS ---
Date/Time of Note Date/Time of Note DATE: 01/19/17 TIME: 11:32 Assessment/Plan Assessment/Plan Additional Assessment/Plan IMPRESSION: 1. Delirium tremens. Resolved 2. Hepatic encephalopathy. Better 3. Alcoholic liver disease. Patient is on prednisolone 4. Pancreatitis. Amylase has come down . Lipase is down 5. Leukocytosis. Persistent most probably related to alcoholic hepatitis 6. Renal insufficiency. Though the urine output is good. Renal function has improved a lot with good urine output. Creatinine is coming down. Now it is 1.6 7. Pedal edema and ascites, reducing 8. Thrombocytopenia better 9. Ileus, small bowel follow-through was negative 10. Patient's gastroparesis might be related to uremia better 11. Hypernatremia Plan 1. Continue prednisolone 2. Your liquid diet 3. Patient is off propofol for more than 8 hours, he is moving all his extremities and responding to his name. Patient is also not tachycardic. I discussed with erp analyst to try the weaning process. 4. Reduce IV fluid since patient is third spacing, may need albumin. 5. Since the kidney function is improving and the urine output is good I would continue octreotide 6. We will monitor WBC, INR, total bilirubin, and creatinine on a regular basis 7. I had [id number] discussion with the mother and the family members and also with the presetter operator and erp analyst. 8. If bilirubin does not come down I may add pentoxifylline 400 mg once a day 9. successfully extubated. Will continue with the present care. 10. Please avoid narcotics and also Ativan patient confusional state is secondary to hepatic encephalopathy 11. Abdominal paracentesis done 2-1/2 L liters of fluid removed 12. Physical therapy and discontinue Ativan 13. Patient started on pentoxifylline Consultation Date/Type/Reason Admit Date/Time Jan 02, 2017 at 19:30 Type of Consultation: Pulmonary/care Referring Provider: BRAEDEN LUNSFORD MD 24 HR Interval Summary Free Text/Dictation Nasogastric tube is out Patient passed a swallow study Exam/Review of Systems Vital Signs Vitals Vital Signs Date Time Temp Pulse Resp B/P Pulse Ox O2 Delivery O2 Flow Rate FiO2 01/19/17 11:00 91 16 114/98 99 Room Air 01/19/17 08:00 98.5 01/18/17 18:12 2.0 01/18/17 05:59 28 Intake and Output 01/18/17 01/18/17 01/19/17 15:00 23:00 07:00 Intake Total 1050.0 ml 1380.0 ml 747.5 ml Output Total 1420 ml 1530 ml 720 ml Balance -370.0 ml -150.0 ml 27.5 ml Exam Respiratory: clear to auscultation, normal air movement Cardiovascular: nl pulses, regular rate and rhythm Gastrointestinal: ascites Musculoskeletal: nl extremities to inspection, nl gait and stance Extremities: normal pulses Neurological: lethargic Results Result Diagram: 01/19/17 0459 01/19/17 0459 Results 24 hrs Laboratory Tests Test 01/18/17 13:46 01/18/17 18:03 01/18/17 20:26 01/19/17 00:49 Bedside Glucose 174 185 122 135 Test 01/19/17 04:59 01/19/17 05:11 01/19/17 08:57 White Blood Count 30.6 H Red Blood Count 2.45 L Hemoglobin 8.5 L Hematocrit 26.2 L Mean Corpuscular Volume 106.9 H Mean Corpuscular Hemoglobin 34.7 H Mean Corpuscular Hemoglobin Concent 32.4 Red Cell Distribution Width 24.3 H Platelet Count 102 L Mean Platelet Volume 12.9 H Neutrophils % Segmented Neutrophils % (Manual) 80 H Lymphocytes % Lymphocytes % (Manual) 10 L Monocytes % Monocytes % (Manual) 8 Eosinophils % Basophils % Metamyelocytes % (manual) 1 H Myelocytes % (Manual) 1 H Nucleated Red Blood Cells % 0.1 H Neutrophils # Absolute Lymphocytes (Manual) 3.0 H Lymphocytes # Monocytes # Absolute Monocytes (Manual) 2.4 H Eosinophils # Basophils # Metamyelocytes # 0.3 H Myelocytes # 0.3 H Nucleated Red Blood Cells # Platelet Estimate DECREASED Giant Platelets 1 H Polychromasia 3+ Hypochromasia 1+ Poikilocytosis 2+ Anisocytosis 3+ Macrocytosis 3+ Sodium Level 157 H Potassium Level 3.6 Chloride Level 121 H Carbon Dioxide Level 26 Anion Gap 14 Blood Urea Nitrogen 73 H Creatinine 1.56 H Glucose Level 129 Calcium Level 9.0 Total Bilirubin 29.2 H Direct Bilirubin 26.20 *H Indirect Bilirubin 3.0 H Aspartate Amino Transf (AST/SGOT) 205 H Alanine Aminotransferase (ALT/SGPT) 83 H Alkaline Phosphatase 351 H Total Protein 6.6 Albumin 2.7 L Globulin 3.90 H Albumin/Globulin Ratio 0.69 Bedside Glucose 134 124 Medications Medications Current Medications Ondansetron HCl (Zofran Inj) 4 mg Q6H PRN IV NAUSEA AND/OR VOMITING Last administered on 01/03/17 14:52; Admin Dose 4 MG; Start 01/02/17 at 23:00 Docusate Sodium (Colace) 100 mg Q12H PRN PO CONSTIPATION; Start 01/02/17 at 23: 00 Rifaximin (Xifaxan) 550 mg BID PO Last administered on 01/19/17 08:58; Admin Dose 550 MG; Start 01/04/17 at 11:00 IV Flush (NS 10 ml) 10 ml PRN PRN IV IV PROTOCOL; Start 01/05/17 at 18:30 Diagnostic Test (Pha) (Accu-Chek) 1 ea Q4 XX Last administered on 01/19/17 05: 12; Admin Dose 1 EA; Start 01/06/17 at 17:00 Diazepam (Valium) 10 mg Q2H PRN IV ANXIETY Last administered on 01/08/17 01:43 ; Admin Dose 10 MG; Start 01/07/17 at 12:00 Pantoprazole 40 mg 40 mg DAILY IV Last administered on 01/19/17 08:59; Admin Dose 40 MG; Start 01/09/17 at 09:00 Total Parenteral Nutrition (Tpn) 1,000 ml @ 50 mls/hr Q20H IV Last administered on 01/19/17 09:01; Admin Dose 50 MLS/HR; Start 01/09/17 at 18:00 Prednisolone (Prelone (Ped)) 40 mg DAILY PO Last administered on 01/19/17 08: 59; Admin Dose 40 MG; Start 01/12/17 at 09:00 Citric Acid/ Sodium Citrate (Bicitra) 30 ml TID NGT Last administered on 09:00; Admin Dose 30 ML; Start 01/12/17 at 09:00 Lactulose (Enulose) 20 gm TID NGT Last administered on 01/19/17 09:00; Admin Dose 20 GM; Start 01/12/17 at 13:00 Nystatin 5 ml 5 ml QID PO Last administered on 01/19/17 08:58; Admin Dose 5 ML ; Start 01/13/17 at 17:00 Dextrose (D5W) 1,000 ml @ 20 mls/hr Q24H IV Last administered on 01/18/17 18: 08; Admin Dose 20 MLS/HR; Start 01/15/17 at 18:30 Insulin Aspart (Novolog Insulin Pen) NOVOLOG *MILD* ALGORI... Q4 SC Last administered on 01/18/17 18:05; Admin Dose 2 UNIT; Start 01/15/17 at 21:00 Miscellaneous Information 1 ea NOTE XX ; Start 01/15/17 at 18:30 Glucose (Glutose) 15 gm Q15M PRN PO DECREASED GLUCOSE; Start 01/15/17 at 18:30 Glucose (Glutose) 22.5 gm Q15M PRN PO DECREASED GLUCOSE; Start 01/15/17 at 18: 30 Dextrose (D50w Syringe) 25 ml Q15M PRN IV DECREASED GLUCOSE; Start 01/15/17 at 18:30 Dextrose (D50w Syringe) 50 ml Q15M PRN IV DECREASED GLUCOSE; Start 01/15/17 at 18:30 Glucagon (Glucagen) 1 mg Q15M PRN IM DECREASED GLUCOSE; Start 01/15/17 at 18:30 Glucose (Glutose) 15 gm Q15M PRN BUCCAL DECREASED GLUCOSE; Start 01/15/17 at 18 :30 Morphine Sulfate 1 mg 1 mg Q4H PRN IM PAIN Last administered on 01/18/17 23:55 ; Admin Dose 1 MG; Start 01/16/17 at 09:00 Octreotide Acetate/Dextrose (Sandostatin/D5W) 50 ml @ 2.5 mls/hr Q20H IV Last administered on 01/18/17 19:00; Admin Dose 2.5 MLS/HR; Start 01/16/17 at 10:00 Metoclopramide HCl 5 mg 5 mg Q6 IV Last administered on 01/19/17 05:13; Admin Dose 5 MG; Start 01/16/17 at 18:00 Albumin Human (Albumin Human 25%) 100 ml @ 100 mls/hr DAILY IV Last administered on 01/19/17 09:00; Admin Dose 100 MLS/HR; Start 01/17/17 at 09:00 ; Stop 01/20/17 at 08:59 Lorazepam (Ativan) 0.5 mg HS PO Last administered on 01/18/17 21:07; Admin Dose 0.5 MG; Start 01/18/17 at 21:00 Pentoxifylline 400 mg 400 mg DAILY PO Last administered on 01/19/17 08:59; Admin Dose 400 MG; Start 01/18/17 at 14:00 Vancomycin HCl 1.25 gm/Dextrose 250 ml @ 83.333 mls/ hr Q24H IVPB ; Start 01/19 at 15:00 Meropenem/Sodium Chloride 50 ml @ 100 mls/hr Q8 IVPB ; Start 01/19/17 at 14:00 Caspofungin/ Sodium Chloride (Cancidas/NS) 250 ml @ 250 mls/hr Q24H IVPB ; Start 01/19/17 at 12:30 LAURA CORDERO MD Jan 19, 2017 11:35
--- NOTE | 2017-01-19 12:30 | CONS ---
Date/Time of Note Date/Time of Note DATE: 01/19/17 TIME: 12:26 Assessment/Plan Assessment/Plan Additional Assessment/Plan Assessment and recommendations; 1. Patient admitted with severe hepatic encephalopathy from alcoholic liver disease. Status post respiratory failure. 2. Anemia and thrombus cytopenia. Hematocrit is stable with improving platelet count. 3. Acute renal failure due to hepatorenal syndrome with marked improvement in serum creatinine. 4. Ascites status post paracentesis. 5. Persistent leukocytosis. Etiology is unclear. Patient currently on appropriate antibiotic microbial and antifungal regimen. 6. Acute pancreatitis with marked interval resolution. 7. Persistent severe hyper bilirubinemia. Continue current supportive care. Prognosis is guarded. Consultation Date/Type/Reason Admit Date/Time Jan 02, 2017 at 19:30 Initial Consult Date 01/07/17 Type of Consultation: Pulmonary/care Referring Provider: BRAEDEN LUNSFORD MD 24 HR Interval Summary Free Text/Dictation Patient's condition remains tenuous at best. He remains awake but has significant slurred speech. Patient has remained hemodynamically stable. No overt bleeding seen. General exam; young male, awake, responsive appropriately. Currently in no distress. Exam/Review of Systems Vital Signs Vitals Vital Signs Date Time Temp Pulse Resp B/P Pulse Ox O2 Delivery O2 Flow Rate FiO2 01/19/17 11:00 91 16 114/98 99 Room Air 01/19/17 08:00 98.5 01/18/17 18:12 2.0 01/18/17 05:59 28 Intake and Output 01/18/17 01/18/17 01/19/17 15:00 23:00 07:00 Intake Total 1050.0 ml 1380.0 ml 747.5 ml Output Total 1420 ml 1530 ml 720 ml Balance -370.0 ml -150.0 ml 27.5 ml Exam HEENT exam; supple neck, noted. No lymphadenopathy or midline trachea. No thyromegaly. Patient remains deeply icteric has multiple carious teeth. No oral bleeding seen. Pupils are small bilaterally. Chest exam; diminished but clear breath sounds. S1-S2 audible, no murmurs. Regular rhythm. Abdomen exam; soft, recurrent. Nontender. Bowel sounds are sluggish. No organomegaly felt. No fluid thrills felt. Exam; no edema. Pulses 1+ bilaterally. Next CORONER TECHNICIAN exam; is awake has slurred speech but responds appropriately, moves all 4 extremities on command. Results Result Diagram: 01/19/17 0459 01/19/17 0459 Results 24 hrs Laboratory Tests Test 01/18/17 13:46 01/18/17 18:03 01/18/17 20:26 01/19/17 00:49 Bedside Glucose 174 185 122 135 Test 01/19/17 04:59 01/19/17 05:11 01/19/17 08:57 White Blood Count 30.6 H Red Blood Count 2.45 L Hemoglobin 8.5 L Hematocrit 26.2 L Mean Corpuscular Volume 106.9 H Mean Corpuscular Hemoglobin 34.7 H Mean Corpuscular Hemoglobin Concent 32.4 Red Cell Distribution Width 24.3 H Platelet Count 102 L Mean Platelet Volume 12.9 H Neutrophils % Segmented Neutrophils % (Manual) 80 H Lymphocytes % Lymphocytes % (Manual) 10 L Monocytes % Monocytes % (Manual) 8 Eosinophils % Basophils % Metamyelocytes % (manual) 1 H Myelocytes % (Manual) 1 H Nucleated Red Blood Cells % 0.1 H Neutrophils # Absolute Lymphocytes (Manual) 3.0 H Lymphocytes # Monocytes # Absolute Monocytes (Manual) 2.4 H Eosinophils # Basophils # Metamyelocytes # 0.3 H Myelocytes # 0.3 H Nucleated Red Blood Cells # Platelet Estimate DECREASED Giant Platelets 1 H Polychromasia 3+ Hypochromasia 1+ Poikilocytosis 2+ Anisocytosis 3+ Macrocytosis 3+ Sodium Level 157 H Potassium Level 3.6 Chloride Level 121 H Carbon Dioxide Level 26 Anion Gap 14 Blood Urea Nitrogen 73 H Creatinine 1.56 H Glucose Level 129 Calcium Level 9.0 Total Bilirubin 29.2 H Direct Bilirubin 26.20 *H Indirect Bilirubin 3.0 H Aspartate Amino Transf (AST/SGOT) 205 H Alanine Aminotransferase (ALT/SGPT) 83 H Alkaline Phosphatase 351 H Total Protein 6.6 Albumin 2.7 L Globulin 3.90 H Albumin/Globulin Ratio 0.69 Bedside Glucose 134 124 Medications Medications Current Medications Ondansetron HCl (Zofran Inj) 4 mg Q6H PRN IV NAUSEA AND/OR VOMITING Last administered on 01/03/17t 14:52; Admin Dose 4 MG; Start 01/02/17 at 23:00 Docusate Sodium (Colace) 100 mg Q12H PRN PO CONSTIPATION; Start 01/02/17 at 23: 00 Rifaximin (Xifaxan) 550 mg BID PO Last administered on 01/19/17 08:58; Admin Dose 550 MG; Start 01/04/17 at 11:00 IV Flush (NS 10 ml) 10 ml PRN PRN IV IV PROTOCOL; Start 01/05/17 at 18:30 Diagnostic Test (Pha) (Accu-Chek) 1 ea Q4 XX Last administered on 01/19/17 05: 12; Admin Dose 1 EA; Start 01/06/17 at 17:00 Diazepam (Valium) 10 mg Q2H PRN IV ANXIETY Last administered on 01/08/17 01:43 ; Admin Dose 10 MG; Start 01/07/17 at 12:00 Pantoprazole 40 mg 40 mg DAILY IV Last administered on 01/19/17 08:59; Admin Dose 40 MG; Start 01/09/17 at 09:00 Total Parenteral Nutrition (Tpn) 1,000 ml @ 50 mls/hr Q20H IV Last administered on 01/19/17 09:01; Admin Dose 50 MLS/HR; Start 01/09/17 at 18:00 Prednisolone (Prelone (Ped)) 40 mg DAILY PO Last administered on 01/19/17 08: 59; Admin Dose 40 MG; Start 01/12/17 at 09:00 Citric Acid/ Sodium Citrate (Bicitra) 30 ml TID NGT Last administered on 09:00; Admin Dose 30 ML; Start 01/12/17 at 09:00 Lactulose (Enulose) 20 gm TID NGT Last administered on 01/19/17 09:00; Admin Dose 20 GM; Start 01/12/17 at 13:00 Nystatin 5 ml 5 ml QID PO Last administered on 01/19/17 08:58; Admin Dose 5 ML ; Start 01/13/17 at 17:00 Dextrose (D5W) 1,000 ml @ 20 mls/hr Q24H IV Last administered on 01/18/17 18: 08; Admin Dose 20 MLS/HR; Start 01/15/17 at 18:30 Insulin Aspart (Novolog Insulin Pen) NOVOLOG *MILD* ALGORI... Q4 SC Last administered on 01/18/17 18:05; Admin Dose 2 UNIT; Start 01/15/17 at 21:00 Miscellaneous Information 1 ea NOTE XX ; Start 01/15/17 at 18:30 Glucose (Glutose) 15 gm Q15M PRN PO DECREASED GLUCOSE; Start 01/15/17 at 18:30 Glucose (Glutose) 22.5 gm Q15M PRN PO DECREASED GLUCOSE; Start 01/15/17 at 18: 30 Dextrose (D50w Syringe) 25 ml Q15M PRN IV DECREASED GLUCOSE; Start 01/15/17 at 18:30 Dextrose (D50w Syringe) 50 ml Q15M PRN IV DECREASED GLUCOSE; Start 01/15/17 at 18:30 Glucagon (Glucagen) 1 mg Q15M PRN IM DECREASED GLUCOSE; Start 01/15/17 at 18:30 Glucose (Glutose) 15 gm Q15M PRN BUCCAL DECREASED GLUCOSE; Start 01/15/17 at 18 :30 Morphine Sulfate 1 mg 1 mg Q4H PRN IM PAIN Last administered on 01/18/17 23:55 ; Admin Dose 1 MG; Start 01/16/17 at 09:00 Octreotide Acetate/Dextrose (Sandostatin/D5W) 50 ml @ 2.5 mls/hr Q20H IV Last administered on 01/18/17 19:00; Admin Dose 2.5 MLS/HR; Start 01/16/17 at 10:00 Metoclopramide HCl 5 mg 5 mg Q6 IV Last administered on 01/19/17 05:13; Admin Dose 5 MG; Start 01/16/17 at 18:00 Albumin Human (Albumin Human 25%) 100 ml @ 100 mls/hr DAILY IV Last administered on 01/19/17 09:00; Admin Dose 100 MLS/HR; Start 01/17/17 at 09:00 ; Stop 01/20/17 at 08:59 Lorazepam (Ativan) 0.5 mg HS PO Last administered on 01/18/17 21:07; Admin Dose 0.5 MG; Start 01/18/17 at 21:00 Pentoxifylline 400 mg 400 mg DAILY PO Last administered on 01/19/17 08:59; Admin Dose 400 MG; Start 01/18/17 at 14:00 Vancomycin HCl 1.25 gm/Dextrose 250 ml @ 83.333 mls/ hr Q24H IVPB ; Start 01/19 at 15:00 Meropenem/Sodium Chloride 50 ml @ 100 mls/hr Q8 IVPB ; Start 01/19/17 at 14:00 Caspofungin/ Sodium Chloride (Cancidas/NS) 250 ml @ 250 mls/hr Q24H IVPB ; Start 01/19/17 at 12:30 NERI MCKEON Jan 19, 2017 12:30
[2017-01-19] MEDS: CASPOFUNGIN 35 MG in SOD CHLORIDE 0.9% 250 ML IVPB SCH (13:39)
--- NOTE | 2017-01-19 14:21 | PN ---
DATE: 01/19/2017 SUBJECTIVE: No acute events overnight. The patient is very lethargic this morning; however, in no distress, afebrile. VITAL SIGNS: Temperature 97.7, pulse 76, respirations 14, blood pressure 117/64 , saturation 100 on room air. LABORATORY DATA: WBC 30.6, H and H 8.5 and 26.2, platelets 102, neutrophils 80. BUN 73, creatinine 1.56. Total bilirubin 29.2. INDWELLINGS: [place], PICC line. ANTIMICROBIALS: 1. Vancomycin. 2. Merrem. 3. Fluconazole. PHYSICAL EXAMINATION: GENERAL: This is an ill-appearing, middle-aged, [place] man who is obtunded and in no distress. HEENT: Head atraumatic, normocephalic. Sclerae icteric. Buccal mucosa dry. NECK: Supple. CHEST: Rise symmetrical. Breath sounds diminished to bases. HEART: S1, S2. ABDOMEN: Soft with guarding on palpation. Bowel tones present. EXTREMITIES: With trace edema. ASSESSMENT: 1. Severe sepsis status post shock. 2. Acute pancreatitis. 3. Decompensated liver cirrhosis. 4. Ascites, status post paracentesis. 5. Status post respiratory failure, patient is extubated. 6. Acute hepatic encephalopathy. 7. Acute kidney injury with kidney function improving. 8. Persistent leukocytosis secondary to sepsis and also steroid induced. 9. Ethyl alcohol dependency abuse. PLAN: The patient remains unchanged, hemodynamically stable, on appropriate antimicrobials. Dictated By: ROSALIA BARKER CANCER PROGRAM DIRECTOR for MADELAINE PLASENCIA/JACQUELINE Conf#: [id number] DID#: [id number] [facility] HOSPITALNima
--- NOTE | 2017-01-19 16:55 | PN ---
Date/Time of Note Date/Time of Note DATE: 01/19/17 TIME: 16:53 Assessment/Plan VTE Prophylaxis VTE Prophylaxis Intervention: other Lines/Catheters IV Catheter Type (from Nrsg): PICC Line Central line still needed: Yes Urinary Cath still in place: Yes Reason Cath still needed: other (indicate) Assessment/Plan Chief Complaint/Hosp Course # Acute on chronic liver failure likely Etoh abuse with elevated INR, Hyperbilirubenemia, low platelets, # Hepatic encephalopathy # ETOH withdrawal S/P # ETOH pancreatitis # Non Gap Acidosis likely combination of renal failure and diarrhoea # Leukocytosis could be pancreatitis vs Alcholic hepatitis # Hypoxic Respiratory failure s/p extubated on 01/15 # Thrombocytopenia # Anemia # s/P EGD with gastritis # Ileus s/p Small bowel follow thru which is negative, PLAN TPN [facility] LABS albumin iv fluid TRANSFER OUT OF ICU PT OT Problems: Subjective 24 Hr Interval Summary Subjective hx not possible: other (LESS CONFUSED,AWAKE) Exam/Review of Systems Vital Signs Vitals Vital Signs Date Time Temp Pulse Resp B/P Pulse Ox O2 Delivery O2 Flow Rate FiO2 01/19/17 16:00 79 01/19/17 16:00 98.5 15 131/67 100 Room Air 01/18/17 18:12 2.0 01/18/17 05:59 28 Intake and Output 01/18/17 01/18/17 01/19/17 15:00 23:00 07:00 Intake Total 1050.0 ml 1380.0 ml 747.5 ml Output Total 1420 ml 1530 ml 720 ml Balance -370.0 ml -150.0 ml 27.5 ml Exam Neck: supple Respiratory: clear to auscultation Cardiovascular: regular rate and rhythm Gastrointestinal: bowel sounds (+), soft Extremities: edema (+) Results Result Diagram: 01/19/17 0459 01/19/17 0459 Results 24 hrs Laboratory Tests Test 01/18/17 18:03 01/18/17 20:26 01/19/17 00:49 01/19/17 04:59 Bedside Glucose 185 122 135 White Blood Count 30.6 H Red Blood Count 2.45 L Hemoglobin 8.5 L Hematocrit 26.2 L Mean Corpuscular Volume 106.9 H Mean Corpuscular Hemoglobin 34.7 H Mean Corpuscular Hemoglobin Concent 32.4 Red Cell Distribution Width 24.3 H Platelet Count 102 L Mean Platelet Volume 12.9 H Neutrophils % Segmented Neutrophils % (Manual) 80 H Lymphocytes % Lymphocytes % (Manual) 10 L Monocytes % Monocytes % (Manual) 8 Eosinophils % Basophils % Metamyelocytes % (manual) 1 H Myelocytes % (Manual) 1 H Nucleated Red Blood Cells % 0.1 H Neutrophils # Absolute Lymphocytes (Manual) 3.0 H Lymphocytes # Monocytes # Absolute Monocytes (Manual) 2.4 H Eosinophils # Basophils # Metamyelocytes # 0.3 H Myelocytes # 0.3 H Nucleated Red Blood Cells # Platelet Estimate DECREASED Giant Platelets 1 H Polychromasia 3+ Hypochromasia 1+ Poikilocytosis 2+ Anisocytosis 3+ Macrocytosis 3+ Sodium Level 157 H Potassium Level 3.6 Chloride Level 121 H Carbon Dioxide Level 26 Anion Gap 14 Blood Urea Nitrogen 73 H Creatinine 1.56 H Glucose Level 129 Calcium Level 9.0 Total Bilirubin 29.2 H Direct Bilirubin 26.20 *H Indirect Bilirubin 3.0 H Aspartate Amino Transf (AST/SGOT) 205 H Alanine Aminotransferase (ALT/SGPT) 83 H Alkaline Phosphatase 351 H Total Protein 6.6 Albumin 2.7 L Globulin 3.90 H Albumin/Globulin Ratio 0.69 Test 01/19/17 05:11 01/19/17 08:57 01/19/17 12:17 01/19/17 13:41 Bedside Glucose 134 124 191 Ammonia 31 H Test 01/19/17 13:50 Vancomycin Level Trough 10.9 Medications Medications Current Medications Ondansetron HCl (Zofran Inj) 4 mg Q6H PRN IV NAUSEA AND/OR VOMITING Last administered on 01/03/17 14:52; Admin Dose 4 MG; Start 01/02/17 at 23:00 Docusate Sodium (Colace) 100 mg Q12H PRN PO CONSTIPATION; Start 01/02/17 at 23: 00 Rifaximin (Xifaxan) 550 mg BID PO Last administered on 01/19/17 08:58; Admin Dose 550 MG; Start 01/04/17 at 11:00 IV Flush (NS 10 ml) 10 ml PRN PRN IV IV PROTOCOL; Start 01/05/17 at 18:30 Diagnostic Test (Pha) (Accu-Chek) 1 ea Q4 XX Last administered on 01/19/17 05: 12; Admin Dose 1 EA; Start 01/06/17 at 17:00 Diazepam 10 mg 10 mg Q2H PRN IV ANXIETY Last administered on 01/08/17 01:43; Admin Dose 10 MG; Start 01/07/17 at 12:00 Total Parenteral Nutrition (Tpn) 1,000 ml @ 50 mls/hr Q20H IV Last administered on 01/19/17 09:01; Admin Dose 50 MLS/HR; Start 01/09/17 at 18:00 Prednisolone (Prelone (Ped)) 40 mg DAILY PO Last administered on 01/19/17 08: 59; Admin Dose 40 MG; Start 01/12/17 at 09:00 Citric Acid/ Sodium Citrate (Bicitra) 30 ml TID NGT Last administered on 13:40; Admin Dose 30 ML; Start 01/12/17 at 09:00 Lactulose (Enulose) 20 gm TID NGT Last administered on 01/19/17 13:40; Admin Dose 20 GM; Start 01/12/17 at 13:00 Nystatin 5 ml 5 ml QID PO Last administered on 01/19/17 13:30; Admin Dose 5 ML ; Start 01/13/17 at 17:00 Dextrose (D5W) 1,000 ml @ 20 mls/hr Q24H IV Last administered on 01/18/17 18: 08; Admin Dose 20 MLS/HR; Start 01/15/17 at 18:30 Insulin Aspart (Novolog Insulin Pen) NOVOLOG *MILD* ALGORI... Q4 SC Last administered on 01/19/17 13:44; Admin Dose 2 UNIT; Start 01/15/17 at 21:00 Miscellaneous Information 1 ea NOTE XX ; Start 01/15/17 at 18:30 Glucose (Glutose) 15 gm Q15M PRN PO DECREASED GLUCOSE; Start 01/15/17 at 18:30 Glucose (Glutose) 22.5 gm Q15M PRN PO DECREASED GLUCOSE; Start 01/15/17 at 18: 30 Dextrose (D50w Syringe) 25 ml Q15M PRN IV DECREASED GLUCOSE; Start 01/15/17 at 18:30 Dextrose (D50w Syringe) 50 ml Q15M PRN IV DECREASED GLUCOSE; Start 01/15/17 at 18:30 Glucagon (Glucagen) 1 mg Q15M PRN IM DECREASED GLUCOSE; Start 01/15/17 at 18:30 Glucose (Glutose) 15 gm Q15M PRN BUCCAL DECREASED GLUCOSE; Start 01/15/17 at 18 :30 Morphine Sulfate (morphine) 1 mg Q4H PRN IM PAIN Last administered on 23:55; Admin Dose 1 MG; Start 01/16/17 at 09:00 Metoclopramide HCl 5 mg 5 mg Q6 IV Last administered on 01/19/17 12:51; Admin Dose 5 MG; Start 01/16/17 at 18:00 Albumin Human (Albumin Human 25%) 100 ml @ 100 mls/hr DAILY IV Last administered on 01/19/17 09:00; Admin Dose 100 MLS/HR; Start 01/17/17 at 09:00 ; Stop 01/20/17 at 08:59 Lorazepam (Ativan) 0.5 mg HS PO Last administered on 01/18/17 21:07; Admin Dose 0.5 MG; Start 01/18/17 at 21:00 Pentoxifylline 400 mg 400 mg DAILY PO Last administered on 01/19/17 08:59; Admin Dose 400 MG; Start 01/18/17 at 14:00 Vancomycin HCl 1.25 gm/Dextrose 250 ml @ 83.333 mls/ hr Q24H IVPB ; Start 01/19 at 15:00 Meropenem/Sodium Chloride 50 ml @ 100 mls/hr Q8 IVPB Last administered on 01/19 15:08; Admin Dose 100 MLS/HR; Start 01/19/17 at 14:00 Caspofungin/ Sodium Chloride (Cancidas/NS) 250 ml @ 250 mls/hr Q24H IVPB Last administered on 01/19/17 13:39; Admin Dose 250 MLS/HR; Start 01/19/17 at 12:30 Famotidine (Pepcid Iv) 20 mg Q12 IV ; Start 01/20/17 at 09:00 JAYME BANSAL MD Jan 19, 2017 16:55
[2017-01-19] MEDS: VANCOMYCIN 1.25 GM in DEXTROSE 5% 250 ML IVPB SCH (17:20)
[2017-01-19] MEDS: DEXTROSE 5% 1,000 ML IV SCH ×2 (18:30→20:58)
[2017-01-19] MEDS: LORAZEPAM 0.5 MG TAB PO SCH (20:36)
[2017-01-19] MEDS: DIAZEPAM 5 MG/ML SYG IV PRN (23:40)
[2017-01-20] VITALS (8 sets, daily range): BP systolic 119–133; BP diastolic 63–78; PULSE 78; RESP 18–22
[2017-01-20] MEDS: METOCLOPRAMIDE 10 MG INJ IV SCH ×4 (00:56→17:34)
[2017-01-20] MEDS: INSULIN ASPART [NOVOLOG] 3 ML PEN SC SCH ×6 (00:56→20:29)
[2017-01-20] MEDS: ACCU-CHEK XX SCH ×6 (00:57→20:35)
[2017-01-20] MEDS: DIAZEPAM 5 MG/ML SYG IV PRN (01:45)
[2017-01-20] MEDS: MEROPENEM 1 GM/50ML(PMX) 50 ML IVPB SCH ×3 (05:53→22:38)
[2017-01-20] MEDS: TPN 1,000 ML IV SCH (05:53)
[2017-01-20 07:00] LABS: CALCIUM 8.8 mg/dl (8.4-10.2); CREATININE 1.5 mg/dl (0.61-1.24); MAGNESIUM 1.7 mg/dl (1.7-2.5); PHOSPHORUS 3.6 mg/dl (2.5-4.9); POTASSIUM 3.6 mmol/L (3.5-5.1)
[2017-01-20] MEDS: predniSOLONE (3 MG/ML PO SYG) PO SCH ×2 (09:00→10:53)
[2017-01-20] MEDS: BALSAM PERU/CASTOR OIL 60 GM TUBE TOP SCH ×2 (09:20→20:34)
[2017-01-20] MEDS: RIFAXIMIN 550 MG TAB PO SCH ×2 (09:20→20:15)
[2017-01-20] MEDS: FAMOTIDINE 20 MG INJ IV SCH ×2 (09:20→20:16)
[2017-01-20] MEDS: NYSTATIN SUSP 5 ML CUP PO SCH ×5 (09:21→20:16)
[2017-01-20] MEDS: LACTULOSE 30ML CUP NGT SCH ×2 (09:21→13:10)
[2017-01-20] MEDS: PENTOXIFYLLINE (SR) 400 MG TAB PO SCH (09:21)
[2017-01-20] MEDS: CITRIC ACID/NA CITRATE 30 ML CUP NGT SCH ×3 (09:30→20:33)
--- NOTE | 2017-01-20 11:59 | CONS ---
Date/Time of Note Date/Time of Note DATE: 01/20/17 TIME: 11:56 Assessment/Plan Assessment/Plan Chief Complaint/Hosp Course SUBJECTIVE: No acute events overnight. The patient is alert, looks comfortable ,no fevers INDWELLINGS: [place], PICC line. ANTIMICROBIALS: 1. Vancomycin. 2. Merrem. 3. Cancidas. PHYSICAL EXAMINATION: GENERAL: This is an ill-appearing, middle-aged, man who is obtunded and in no distress. HEENT: Head atraumatic, normocephalic. Sclerae icteric. Buccal mucosa dry. NECK: Supple. CHEST: Rise symmetrical. Breath sounds diminished to bases. HEART: S1, S2. ABDOMEN: Soft with guarding on palpation. Bowel tones present. EXTREMITIES: With trace edema. ASSESSMENT: 1. Resolving sepsis status post shock. 2. Acute pancreatitis. 3. Decompensated liver cirrhosis. 4. Ascites, status post paracentesis. 5. Status post respiratory failure, patient is extubated. 6. Acute hepatic encephalopathy. 7. Acute kidney injury with kidney function improving. 8. Persistent leukocytosis secondary to sepsis and also steroid induced. 9. Ethyl alcohol dependency abuse. PLAN: The patient remains stable, tx out of ICU, continue present care, aspiration precautions DW RN Problems: Consultation Date/Type/Reason Admit Date/Time Jan 02, 2017 at 19:30 Initial Consult Date 01/07/17 Type of Consultation: ID Referring Provider: BRAEDEN LUNSFORD MD Exam/Review of Systems Vital Signs Vitals Vital Signs Date Time Temp Pulse Resp B/P Pulse Ox O2 Delivery O2 Flow Rate FiO2 01/20/17 10:00 97.9 82 20 128/76 97 01/19/17 16:00 Room Air 01/18/17 18:12 2.0 01/18/17 05:59 28 Intake and Output 01/19/17 01/19/17 01/20/17 15:00 23:00 07:00 Intake Total 1395.0 ml 420 ml 870 ml Output Total 1260 ml 1500 ml Balance 135.0 ml 420 ml -630 ml Results Result Diagram: 01/19/17 0459 01/20/17 0533 Results 24 hrs Laboratory Tests Test 01/19/17 12:17 01/19/17 13:41 01/19/17 13:50 01/19/17 17:29 Ammonia 31 H Bedside Glucose 191 163 Vancomycin Level Trough 10.9 Test 01/19/17 20:35 01/20/17 00:55 01/20/17 05:33 01/20/17 05:50 Bedside Glucose 156 133 119 Sodium Level 156 H Potassium Level 3.6 Chloride Level 120 H Carbon Dioxide Level 26 Anion Gap 14 Blood Urea Nitrogen 65 H Creatinine 1.50 H Glucose Level 118 Calcium Level 8.8 Phosphorus Level 3.6 Magnesium Level 1.7 Test 01/20/17 09:18 01/20/17 09:47 Bedside Glucose 145 Ammonia 16 Medications Medications Current Medications Ondansetron HCl (Zofran Inj) 4 mg Q6H PRN IV NAUSEA AND/OR VOMITING Last administered on 01/03/17 14:52; Admin Dose 4 MG; Start 01/02/17 at 23:00 Docusate Sodium (Colace) 100 mg Q12H PRN PO CONSTIPATION; Start 01/02/17 at 23: 00 Rifaximin (Xifaxan) 550 mg BID PO Last administered on 01/20/17 09:20; Admin Dose 550 MG; Start 01/04/17 at 11:00 IV Flush (NS 10 ml) 10 ml PRN PRN IV IV PROTOCOL; Start 01/05/17 at 18:30 Diagnostic Test (Pha) 1 ea 1 ea Q4 XX Last administered on 01/20/17 09:20; Admin Dose 1 EA; Start 01/06/17 at 17:00 Total Parenteral Nutrition (Tpn) 1,000 ml @ 50 mls/hr Q20H IV Last administered on 01/20/17 05:53; Admin Dose 50 MLS/HR; Start 01/09/17 at 18:00 Prednisolone (Prelone (Ped)) 40 mg DAILY PO Last administered on 01/20/17 10: 53; Admin Dose 40 MG; Start 01/12/17 at 09:00 Citric Acid/ Sodium Citrate (Bicitra) 30 ml TID NGT Last administered on 09:30; Admin Dose 30 ML; Start 01/12/17 at 09:00 Lactulose (Enulose) 20 gm TID NGT Last administered on 01/20/17 09:21; Admin Dose 20 GM; Start 01/12/17 at 13:00 Nystatin 5 ml 5 ml QID PO Last administered on 01/20/17 09:21; Admin Dose 5 ML ; Start 01/13/17 at 17:00 Dextrose (D5W) 1,000 ml @ 20 mls/hr Q24H IV Last administered on 01/19/17 20: 58; Admin Dose 20 MLS/HR; Start 01/15/17 at 18:30 Insulin Aspart (Novolog Insulin Pen) NOVOLOG *MILD* ALGORI... Q4 SC Last administered on 01/20/17 09:30; Admin Dose 1 UNIT; Start 01/15/17 at 21:00 Miscellaneous Information 1 ea NOTE XX ; Start 01/15/17 at 18:30 Glucose (Glutose) 15 gm Q15M PRN PO DECREASED GLUCOSE; Start 01/15/17 at 18:30 Glucose (Glutose) 22.5 gm Q15M PRN PO DECREASED GLUCOSE; Start 01/15/17 at 18: 30 Dextrose (D50w Syringe) 25 ml Q15M PRN IV DECREASED GLUCOSE; Start 01/15/17 at 18:30 Dextrose (D50w Syringe) 50 ml Q15M PRN IV DECREASED GLUCOSE; Start 01/15/17 at 18:30 Glucagon (Glucagen) 1 mg Q15M PRN IM DECREASED GLUCOSE; Start 01/15/17 at 18:30 Glucose (Glutose) 15 gm Q15M PRN BUCCAL DECREASED GLUCOSE; Start 01/15/17 at 18 :30 Morphine Sulfate (morphine) 1 mg Q4H PRN IM PAIN Last administered on 23:55; Admin Dose 1 MG; Start 01/16/17 at 09:00 Metoclopramide HCl (Reglan) 5 mg Q6 IV Last administered on 01/20/17 05:54; Admin Dose 5 MG; Start 01/16/17 at 18:00 Lorazepam (Ativan) 0.5 mg HS PO Last administered on 01/19/17 20:36; Admin Dose 0.5 MG; Start 01/18/17 at 21:00 Pentoxifylline 400 mg 400 mg DAILY PO Last administered on 01/20/17 09:21; Admin Dose 400 MG; Start 01/18/17 at 14:00 Vancomycin HCl 1.25 gm/Dextrose 250 ml @ 83.333 mls/ hr Q24H IVPB Last administered on 01/19/17 17:20; Admin Dose 83.333 MLS/HR; Start 01/19/17 at 15: 00 Meropenem/Sodium Chloride 50 ml @ 100 mls/hr Q8 IVPB Last administered on 01/20 05:53; Admin Dose 100 MLS/HR; Start 01/19/17 at 14:00 Caspofungin/ Sodium Chloride (Cancidas/NS) 250 ml @ 250 mls/hr Q24H IVPB Last administered on 01/19/17 13:39; Admin Dose 250 MLS/HR; Start 01/19/17 at 12:30 Famotidine (Pepcid Iv) 20 mg Q12 IV Last administered on 01/20/17 09:20; Admin Dose 20 MG; Start 01/20/17 at 09:00 Diazepam (Valium) 10 mg BID PRN PO ANXIETY; Start 01/20/17 at 11:00 ROSALIA BARKER NP Jan 20, 2017 11:59
[2017-01-20] MEDS: CASPOFUNGIN 35 MG in SOD CHLORIDE 0.9% 250 ML IVPB SCH (12:00)
--- NOTE | 2017-01-20 13:23 | CONS ---
Date/Time of Note Date/Time of Note DATE: 01/20/17 TIME: 13:21 Assessment/Plan Assessment/Plan Additional Assessment/Plan IMPRESSION: 1. Delirium tremens. Resolved 2. Hepatic encephalopathy. Better patient is now communicating with slurred speech 3. Alcoholic liver disease. Patient is on prednisolone 4. Pancreatitis. Amylase has come down . Lipase is down 5. Leukocytosis. Persistent most probably related to alcoholic hepatitis 6. Renal insufficiency. Though the urine output is good. Renal function has improved a lot with good urine output. Creatinine is coming down. Now it is 1.6 7. Pedal edema and ascites, reducing 8. Thrombocytopenia better 9. Ileus, small bowel follow-through was negative 10. Patient's gastroparesis might be related to uremia better 11. Hypernatremia Plan 1. Continue prednisolone 2. Your liquid diet 3. Patient is off propofol for more than 8 hours, he is moving all his extremities and responding to his name. Patient is also not tachycardic. I discussed with associate relations specialist to try the weaning process. 4. Reduce IV fluid since patient is third spacing, may need albumin. 5. Since the kidney function is improving and the urine output is good I would continue octreotide 6. We will monitor WBC, INR, total bilirubin, and creatinine on a regular basis 7. I had [id number] discussion with the mother and the family members and also with the board certified family physician and associate relations specialist. 8. If bilirubin does not come down I may add pentoxifylline 400 mg once a day 9. successfully extubated. Will continue with the present care. 10. Please avoid narcotics and also Ativan patient confusional state is secondary to hepatic encephalopathy 11. Abdominal paracentesis done 2-1/2 L liters of fluid removed 12. Physical therapy and discontinue Ativan 13. Patient started on pentoxifylline Continue present care. Patient wants to go out for 10-20 minutes Consultation Date/Type/Reason Admit Date/Time Jan 02, 2017 at 19:30 Type of Consultation: ID Referring Provider: BRAEDEN LUNSFORD MD 24 HR Interval Summary Subjective hx not possible: pt critical Constitutional: improved Exam/Review of Systems Vital Signs Vitals Vital Signs Date Time Temp Pulse Resp B/P Pulse Ox O2 Delivery O2 Flow Rate FiO2 01/20/17 12:00 97.9 79 18 126/64 94 01/19/17 16:00 Room Air 01/18/17 18:12 2.0 01/18/17 05:59 28 Intake and Output 01/19/17 01/19/17 01/20/17 14:59 22:59 06:59 Intake Total 1085.0 ml 730 ml 870 ml Output Total 1160 ml 100 ml 1500 ml Balance -75.0 ml 630 ml -630 ml Exam Constitutional: alert, oriented, well developed Psych: nl mood/affect, no complaints Head: atraumatic, normocephalic Eyes: EOMI, PERRL, nl conjunctiva, nl lids, nl sclera ENMT: nl external ears & nose, nl lips & teeth, nl nasal mucosa & septum Neck: non-tender, supple Respiratory: clear to auscultation, normal air movement Cardiovascular: nl pulses, regular rate and rhythm Gastrointestinal: nl liver, spleen, non-tender, soft Musculoskeletal: nl extremities to inspection, nl gait and stance Extremities: normal pulses Neurological: GRILL ASSOCIATE II-XII intact, nl mental status, nl speech, nl strength Skin: nl turgor, No rash or lesions Lymph: nl lymph nodes Results Result Diagram: 01/19/17 0459 01/20/17 0533 Results 24 hrs Laboratory Tests Test 01/19/17 13:41 01/19/17 13:50 01/19/17 17:29 01/19/17 20:35 Bedside Glucose 191 163 156 Vancomycin Level Trough 10.9 Test 01/20/17 00:55 01/20/17 05:33 01/20/17 05:50 01/20/17 09:18 Bedside Glucose 133 119 145 Sodium Level 156 H Potassium Level 3.6 Chloride Level 120 H Carbon Dioxide Level 26 Anion Gap 14 Blood Urea Nitrogen 65 H Creatinine 1.50 H Glucose Level 118 Calcium Level 8.8 Phosphorus Level 3.6 Magnesium Level 1.7 Test 01/20/17 09:47 01/20/17 13:06 Ammonia 16 Bedside Glucose 149 Medications Medications Current Medications Ondansetron HCl (Zofran Inj) 4 mg Q6H PRN IV NAUSEA AND/OR VOMITING Last administered on 01/03/17t 14:52; Admin Dose 4 MG; Start 01/02/17 at 23:00 Docusate Sodium (Colace) 100 mg Q12H PRN PO CONSTIPATION; Start 01/02/17 at 23: 00 Rifaximin (Xifaxan) 550 mg BID PO Last administered on 01/20/17 09:20; Admin Dose 550 MG; Start 01/04/17 at 11:00 IV Flush (NS 10 ml) 10 ml PRN PRN IV IV PROTOCOL; Start 01/05/17 at 18:30 Diagnostic Test (Pha) 1 ea 1 ea Q4 XX Last administered on 01/20/17 13:17; Admin Dose 1 EA; Start 01/06/17 at 17:00 Total Parenteral Nutrition (Tpn) 1,000 ml @ 50 mls/hr Q20H IV Last administered on 01/20/17 05:53; Admin Dose 50 MLS/HR; Start 01/09/17 at 18:00 Prednisolone (Prelone (Ped)) 40 mg DAILY PO Last administered on 01/20/17 10: 53; Admin Dose 40 MG; Start 01/12/17 at 09:00 Citric Acid/ Sodium Citrate (Bicitra) 30 ml TID NGT Last administered on 09:30; Admin Dose 30 ML; Start 01/12/17 at 09:00 Lactulose (Enulose) 20 gm TID NGT Last administered on 01/20/17 13:10; Admin Dose 20 GM; Start 01/12/17 at 13:00 Nystatin 5 ml 5 ml QID PO Last administered on 01/20/17 13:10; Admin Dose 5 ML ; Start 01/13/17 at 17:00 Dextrose (D5W) 1,000 ml @ 20 mls/hr Q24H IV Last administered on 01/19/17 20: 58; Admin Dose 20 MLS/HR; Start 01/15/17 at 18:30 Insulin Aspart (Novolog Insulin Pen) NOVOLOG *MILD* ALGORI... Q4 SC Last administered on 01/20/17 13:17; Admin Dose 1 UNIT; Start 01/15/17 at 21:00 Miscellaneous Information 1 ea NOTE XX ; Start 01/15/17 at 18:30 Glucose (Glutose) 15 gm Q15M PRN PO DECREASED GLUCOSE; Start 01/15/17 at 18:30 Glucose (Glutose) 22.5 gm Q15M PRN PO DECREASED GLUCOSE; Start 01/15/17 at 18: 30 Dextrose (D50w Syringe) 25 ml Q15M PRN IV DECREASED GLUCOSE; Start 01/15/17 at 18:30 Dextrose (D50w Syringe) 50 ml Q15M PRN IV DECREASED GLUCOSE; Start 01/15/17 at 18:30 Glucagon (Glucagen) 1 mg Q15M PRN IM DECREASED GLUCOSE; Start 01/15/17 at 18:30 Glucose (Glutose) 15 gm Q15M PRN BUCCAL DECREASED GLUCOSE; Start 01/15/17 at 18 :30 Morphine Sulfate (morphine) 1 mg Q4H PRN IM PAIN Last administered on 23:55; Admin Dose 1 MG; Start 01/16/17 at 09:00 Metoclopramide HCl (Reglan) 5 mg Q6 IV Last administered on 01/20/17 12:04; Admin Dose 5 MG; Start 01/16/17 at 18:00 Lorazepam (Ativan) 0.5 mg HS PO Last administered on 01/19/17 20:36; Admin Dose 0.5 MG; Start 01/18/17 at 21:00 Pentoxifylline 400 mg 400 mg DAILY PO Last administered on 01/20/17 09:21; Admin Dose 400 MG; Start 01/18/17 at 14:00 Vancomycin HCl 1.25 gm/Dextrose 250 ml @ 83.333 mls/ hr Q24H IVPB Last administered on 01/19/17 17:20; Admin Dose 83.333 MLS/HR; Start 01/19/17 at 15: 00 Meropenem/Sodium Chloride 50 ml @ 100 mls/hr Q8 IVPB Last administered on 01/20 05:53; Admin Dose 100 MLS/HR; Start 01/19/17 at 14:00 Caspofungin/ Sodium Chloride (Cancidas/NS) 250 ml @ 250 mls/hr Q24H IVPB Last administered on 01/20/17 12:00; Admin Dose 250 MLS/HR; Start 01/19/17 at 12:30 Famotidine (Pepcid Iv) 20 mg Q12 IV Last administered on 01/20/17 09:20; Admin Dose 20 MG; Start 01/20/17 at 09:00 Diazepam (Valium) 10 mg BID PRN PO ANXIETY; Start 01/20/17 at 11:00 LAURA CORDERO MD Jan 20, 2017 13:23
[2017-01-20] MEDS: VANCOMYCIN 1.25 GM in DEXTROSE 5% 250 ML IVPB SCH (15:50)
--- NOTE | 2017-01-20 16:16 | PN ---
Date/Time of Note Date/Time of Note DATE: 01/20/17 TIME: 16:13 Assessment/Plan VTE Prophylaxis VTE Prophylaxis Intervention: anti-embolic stocking Lines/Catheters IV Catheter Type (from Nrsg): PICC Line Central line still needed: Yes Urinary Cath still in place: Yes Reason Cath still needed: urinary retention (d/c) Assessment/Plan Chief Complaint/Hosp Course 1. Upper GI bleed s/P EGD with gastritis and gastroparesis on Protonix and Reglan 2. ETOH withdrawal 3. ETOH pancreatitis with Lipase 7690> trending down to 1999 4. Acute on chronic liver failure likely Etoh abuse with elevated INR, Hyperbilirubenemia, low platelets, 5. Hepatic encephalopathy with elevated Ammonia levels still 134 6. HX Depression 7. Respiratory failure 8. NICOLAS likely prerenal vs HRS, Cr peaked to 2.12, 1.8 today 9. Gap Acidosis, ABG with severe hypoxia, doubt true arterial sample 10. Leukocytosis could be pancreatitis vs aspiration on cefepime, pt not on prednisolone 11. Hx of Bradycardia 12.. Paralytic ileus. KUB: partial obstruction. pt is on PPN 13. Severe Anemia Problems: Assessment/Plan 1. continue sitter 2. D/c minaya 3. Ammonia level is 16, decrease Lactulose to BID Subjective 24 Hr Interval Summary Free Text/Dictation no appetite Constitutional: improved, no complaints Gastrointestinal: no complaints Genitourinary: no complaints Exam/Review of Systems Vital Signs Vitals Vital Signs Date Time Temp Pulse Resp B/P Pulse Ox O2 Delivery O2 Flow Rate FiO2 01/20/17 14:00 97.7 78 22 119/67 95 01/19/17 16:00 Room Air 01/18/17 18:12 2.0 01/18/17 05:59 28 Intake and Output 01/19/17 01/19/17 01/20/17 15:00 23:00 07:00 Intake Total 1395.0 ml 420 ml 870 ml Output Total 1260 ml 1500 ml Balance 135.0 ml 420 ml -630 ml Exam icteric Constitutional: alert, oriented Respiratory: diminished breath sounds Cardiovascular: regular rate and rhythm Gastrointestinal: soft Results Result Diagram: 01/19/17 0459 01/20/17 0533 Results 24 hrs Laboratory Tests Test 01/19/17 17:29 01/19/17 20:35 01/20/17 00:55 01/20/17 05:33 Bedside Glucose 163 156 133 Sodium Level 156 H Potassium Level 3.6 Chloride Level 120 H Carbon Dioxide Level 26 Anion Gap 14 Blood Urea Nitrogen 65 H Creatinine 1.50 H Glucose Level 118 Calcium Level 8.8 Phosphorus Level 3.6 Magnesium Level 1.7 Test 01/20/17 05:50 01/20/17 09:18 01/20/17 09:47 01/20/17 13:06 Bedside Glucose 119 145 149 Ammonia 16 Medications Medications Current Medications Ondansetron HCl (Zofran Inj) 4 mg Q6H PRN IV NAUSEA AND/OR VOMITING Last administered on 01/03/17 14:52; Admin Dose 4 MG; Start 01/02/17 at 23:00 Docusate Sodium (Colace) 100 mg Q12H PRN PO CONSTIPATION; Start 01/02/17 at 23: 00 Rifaximin (Xifaxan) 550 mg BID PO Last administered on 01/20/17 09:20; Admin Dose 550 MG; Start 01/04/17 at 11:00 IV Flush (NS 10 ml) 10 ml PRN PRN IV IV PROTOCOL; Start 01/05/17 at 18:30 Diagnostic Test (Pha) 1 ea 1 ea Q4 XX Last administered on 01/20/17 13:17; Admin Dose 1 EA; Start 01/06/17 at 17:00 Total Parenteral Nutrition (Tpn) 1,000 ml @ 50 mls/hr Q20H IV Last administered on 01/20/17 05:53; Admin Dose 50 MLS/HR; Start 01/09/17 at 18:00 Prednisolone (Prelone (Ped)) 40 mg DAILY PO Last administered on 01/20/17 10: 53; Admin Dose 40 MG; Start 01/12/17 at 09:00 Citric Acid/ Sodium Citrate (Bicitra) 30 ml TID NGT Last administered on 09:30; Admin Dose 30 ML; Start 01/12/17 at 09:00 Lactulose (Enulose) 20 gm TID NGT Last administered on 01/20/17 13:10; Admin Dose 20 GM; Start 01/12/17 at 13:00 Nystatin 5 ml 5 ml QID PO Last administered on 01/20/17 13:10; Admin Dose 5 ML ; Start 01/13/17 at 17:00 Dextrose (D5W) 1,000 ml @ 20 mls/hr Q24H IV Last administered on 01/19/17 20: 58; Admin Dose 20 MLS/HR; Start 01/15/17 at 18:30 Insulin Aspart (Novolog Insulin Pen) NOVOLOG *MILD* ALGORI... Q4 SC Last administered on 01/20/17 13:17; Admin Dose 1 UNIT; Start 01/15/17 at 21:00 Miscellaneous Information 1 ea NOTE XX ; Start 01/15/17 at 18:30 Glucose (Glutose) 15 gm Q15M PRN PO DECREASED GLUCOSE; Start 01/15/17 at 18:30 Glucose (Glutose) 22.5 gm Q15M PRN PO DECREASED GLUCOSE; Start 01/15/17 at 18: 30 Dextrose (D50w Syringe) 25 ml Q15M PRN IV DECREASED GLUCOSE; Start 01/15/17 at 18:30 Dextrose (D50w Syringe) 50 ml Q15M PRN IV DECREASED GLUCOSE; Start 01/15/17 at 18:30 Glucagon (Glucagen) 1 mg Q15M PRN IM DECREASED GLUCOSE; Start 01/15/17 at 18:30 Glucose (Glutose) 15 gm Q15M PRN BUCCAL DECREASED GLUCOSE; Start 01/15/17 at 18 :30 Morphine Sulfate (morphine) 1 mg Q4H PRN IM PAIN Last administered on 23:55; Admin Dose 1 MG; Start 01/16/17 at 09:00 Metoclopramide HCl (Reglan) 5 mg Q6 IV Last administered on 01/20/17 12:04; Admin Dose 5 MG; Start 01/16/17 at 18:00 Lorazepam (Ativan) 0.5 mg HS PO Last administered on 01/19/17 20:36; Admin Dose 0.5 MG; Start 01/18/17 at 21:00 Pentoxifylline 400 mg 400 mg DAILY PO Last administered on 01/20/17 09:21; Admin Dose 400 MG; Start 01/18/17 at 14:00 Vancomycin HCl 1.25 gm/Dextrose 250 ml @ 83.333 mls/ hr Q24H IVPB Last administered on 01/20/17 15:50; Admin Dose 83.333 MLS/HR; Start 01/19/17 at 15: 00 Meropenem/Sodium Chloride 50 ml @ 100 mls/hr Q8 IVPB Last administered on 01/20 13:29; Admin Dose 100 MLS/HR; Start 01/19/17 at 14:00 Caspofungin/ Sodium Chloride (Cancidas/NS) 250 ml @ 250 mls/hr Q24H IVPB Last administered on 01/20/17 12:00; Admin Dose 250 MLS/HR; Start 01/19/17 at 12:30 Famotidine (Pepcid Iv) 20 mg Q12 IV Last administered on 01/20/17 09:20; Admin Dose 20 MG; Start 01/20/17 at 09:00 Diazepam (Valium) 10 mg BID PRN PO ANXIETY; Start 01/20/17 at 11:00 KIM HOLLIS Jan 20, 2017 16:16
[2017-01-20] MEDS ORDERED: DESMOPRESSIN 4 MCG INJ SC ONE (18:00)
[2017-01-20] MEDS: LORAZEPAM 0.5 MG TAB PO SCH (20:15)
[2017-01-20] MEDS: LACTULOSE 30ML CUP PO SCH (20:15)
--- NOTE | 2017-01-20 23:45 | PN ---
Date/Time of Note Date/Time of Note DATE: 01/20/17 TIME: 23:44 Assessment/Plan Lines/Catheters IV Catheter Type (from [facility]): PICC Line Minaya in Place (from [facility]): Yes Assessment/Plan Chief Complaint/Hosp Course 1. Paralytic ileus 2nd acute processes. SBFT negative. Improved -Monitor 2. Acute on chronic alcoholic pancreatitis with peripancreatic fluid -Supportive measures -Judicious fluid management -Trend labs -Encourage cessation 3. Acute GI bleed from gastritis and esophageal varices secondary to alcoholism ; no output from ng tube. Stable -Transfuse as needed -Supportive measures: ppi -Correct coagulopathy and platelet dysfunction 4. Anemia secondary to above -As above 5. Leukocytosis, multifactorial with SIRS and steroid therapy, ? infectious; on abx therapy; -Close monitoring -Antibiotics 6. Alcoholic hepatitis with hepatosplenomegaly; worsening LFT's -Medical and GI optimization 7. Chronic alcohol abuse with Delirium Tremens; no tremors -Encourage cessation -Sedation/intubation 8. Subcapsular liver collection possible hematoma versus other -Monitor 9. Electrolyte imbalance -Correct with replacements and fluid management 10. Alcohol withdrawal with tachypnea, tachycardia and delirium tremens; improved -supportive 11. NICOLAS: output improving. -judicious fluids -avoid nephrotoxic meds Thank you. Patient seen and examined in collaboration with Dr. Bob Tristan. Problems: Subjective 24 Hr Interval Summary Calmer. Feels ok. Family at bedside. No fevers, chills, sob, congested cough, bateman , dizziness, cp, palpitations. +bowel function. Exam/Review of Systems Vital Signs Vitals Vital Signs Date Time Temp Pulse Resp B/P Pulse Ox O2 Delivery O2 Flow Rate FiO2 01/21/17 15:00 97.9 80 22 129/88 96 01/19/17 16:00 Room Air 01/18/17 18:12 2.0 01/18/17 05:59 28 Intake and Output 01/20/17 01/20/17 01/21/17 15:00 23:00 07:00 Intake Total 350 ml 540 ml 2000 ml Output Total 1400 ml Balance 350 ml 540 ml 600 ml Exam Free Text/Dictation Constitutional: No distress, Not oriented. more alert Psych: No nl mood/affect Head: atraumatic, normocephalic, No hematomas, No lacerations Eyes: EOMI, PERRL, icteric ENMT: nl external ears & nose, nl lips & teeth. Mucosa pink and dry. Neck: non-tender, supple, No jvd Respiratory: No congested cough, No labored breathing Cardiovascular: No edema, No regular rate and rhythm: SR Gastrointestinal: soft, non-tender, non-distended. No rebound or guarding; + stool/gas Musculoskeletal: nl extremities to inspection, No joint tenderness; BLE edema Extremities: normal pulses, No calf tenderness, No cyanosis Neurological: Responsive Skin: rash or lesions (Jaundice), No diaphoresis, No nl turgor : minaya with luis output (improved; increased amount) Lymph: nl lymph nodes, nontender Results Result Diagram: 01/21/1751101/21/17511 ELIO GIBBONS NP Jan 20, 2017 23:44
[2017-01-21] MEDS: METOCLOPRAMIDE 10 MG INJ IV SCH ×4 (00:24→17:38)
[2017-01-21] MEDS: INSULIN ASPART [NOVOLOG] 3 ML PEN SC SCH ×6 (00:27→20:41)
[2017-01-21] MEDS: ACCU-CHEK XX SCH ×6 (00:27→20:41)
[2017-01-21] MEDS: TPN 1,000 ML IV SCH ×2 (00:46→17:24)
[2017-01-21 02:00] VITALS: BP 133/67; RESP 20
[2017-01-21 05:33] LABS: ABNORMAL IP MESSAGE 1; BASOPHILS % 0.1 % (0.0-2.0); EOSINOPHILS % 0.1 % (0.0-7.0); HEMATOCRIT 24.3 % (42.0-52.0); LYMPHOCYTES # 1.1 10^3/ul (0.8-2.9); LYMPHOCYTES % 3.3 % (15.0-51.0); MEAN CORPUSCULAR HEMOGLOBIN 35.4 pg (29.0-33.0); MEAN CORPUSCULAR HGB CONC 32.9 g/dl (32.0-37.0); MEAN CORPUSCULAR VOLUME 107.5 fl (82.0-101.0); MONOCYTE # 2.1 10^3/ul (0.3-0.9); MONOCYTES % 6.1 % (0.0-11.0); NEUTROPHIL # 29.7 10^3/ul (1.6-7.5); NEUTROPHILS % 85.5 % (39.0-77.0); NUCLEATED RED BLOOD CELLS% 0.1 /100WBC (0.0-0.0); PLATELET COUNT 101 10^3/UL (140-415); POSITIVE DIFF @See below; RED BLOOD COUNT 2.26 10^6/ul (4.70-6.10); WHITE BLOOD COUNT 34.7 10^3/ul (4.8-10.8)
[2017-01-21] MEDS: MEROPENEM 1 GM/50ML(PMX) 50 ML IVPB SCH (05:51)
[2017-01-21 06:11] LABS: CALCIUM 8.7 mg/dl (8.4-10.2); CREATININE 1.41 mg/dl (0.61-1.24); MAGNESIUM 1.5 mg/dl (1.7-2.5); PHOSPHORUS 3.4 mg/dl (2.5-4.9); POTASSIUM 3.7 mmol/L (3.5-5.1)
[2017-01-21 08:07] VITALS: BP 129/68; RESP 20
[2017-01-21] MEDS: RIFAXIMIN 550 MG TAB PO SCH ×2 (08:35→20:30)
[2017-01-21] MEDS: PENTOXIFYLLINE (SR) 400 MG TAB PO SCH (08:35)
[2017-01-21] MEDS: CITRIC ACID/NA CITRATE 30 ML CUP NGT SCH ×3 (08:36→20:30)
[2017-01-21] MEDS: FAMOTIDINE 20 MG INJ IV SCH ×2 (08:36→20:30)
[2017-01-21] MEDS: NYSTATIN SUSP 5 ML CUP PO SCH ×4 (08:36→20:30)
[2017-01-21] MEDS: LACTULOSE 30ML CUP PO SCH ×2 (08:36→20:31)
[2017-01-21] MEDS: predniSOLONE (3 MG/ML PO SYG) PO SCH (08:37)
[2017-01-21] MEDS: LORAZEPAM 0.5 MG TAB PO SCH ×3 (08:38→20:30)
[2017-01-21] MEDS: BALSAM PERU/CASTOR OIL 60 GM TUBE TOP SCH ×2 (08:48→20:38)
[2017-01-21] MEDS: DIAZEPAM 5 MG TAB PO PRN (10:42)
[2017-01-21] MEDS: CASPOFUNGIN 35 MG in SOD CHLORIDE 0.9% 250 ML IVPB SCH (12:41)
[2017-01-21 15:00] VITALS: BP 129/88; RESP 22
--- NOTE | 2017-01-21 15:45 | PN ---
Date/Time of Note Date/Time of Note DATE: 01/21/17 TIME: 15:42 Assessment/Plan VTE Prophylaxis VTE Prophylaxis Intervention: anti-embolic stocking Lines/Catheters IV Catheter Type (from Nrsg): PICC Line Central line still needed: Yes Urinary Cath still in place: Yes Reason Cath still needed: urinary retention Assessment/Plan Chief Complaint/Hosp Course 1. s/p upper GI bleed s/P EGD with gastritis and gastroparesis on Protonix and Reglan 2. ETOH withdrawal resolved 3. ETOH pancreatitis 4. Acute on chronic liver failure likely Etoh abuse with elevated INR, Hyperbilirubenemia, low platelets, 5. Hepatic encephalopathy with elevated Ammonia levels still 134 6. HX Depression 7. HX of Respiratory failure 8. NICOLAS likely prerenal vs HRS, Cr peaked to 2.12, 9. Severe Anemia 10. Leukocytosis could be pancreatitis vs aspiration on cefepime, 11. Hx of Bradycardia 12.. Paralytic ileus resolved 13. Problems: Assessment/Plan 1. Continue TPN 2. HOme food consisted with full liquid diet 3. Continue rectal tube 4. Continue sitter Subjective 24 Hr Interval Summary Constitutional: improved, no complaints Exam/Review of Systems Vital Signs Vitals Vital Signs Date Time Temp Pulse Resp B/P Pulse Ox O2 Delivery O2 Flow Rate FiO2 01/21/17 08:07 97.6 88 20 129/68 01/21/17 02:00 96 01/19/17 16:00 Room Air 01/18/17 18:12 2.0 01/18/17 05:59 28 Intake and Output 01/20/17 01/20/17 01/21/17 15:00 23:00 07:00 Intake Total 350 ml 540 ml 2000 ml Output Total 1400 ml Balance 350 ml 540 ml 600 ml Exam Constitutional: alert, oriented (2) Eyes: nl conjunctiva (icteric) ENMT: nl external ears & nose Neck: supple Respiratory: diminished breath sounds Gastrointestinal: soft Genitourinary - Male: nl scrotum Musculoskeletal: muscle weakness, swelling (lower extremities) Results Result Diagram: 01/21/1751101/21/17511 Results 24 hrs Laboratory Tests Test 01/20/17 17:33 01/20/17 20:18 01/21/17 00:26 01/21/17 05:12 Bedside Glucose 155 145 117 White Blood Count 34.7 H Red Blood Count 2.26 L Hemoglobin 8.0 L Hematocrit 24.3 L Mean Corpuscular Volume 107.5 H Mean Corpuscular Hemoglobin 35.4 H Mean Corpuscular Hemoglobin Concent 32.9 Red Cell Distribution Width 25.0 H Platelet Count 101 L Mean Platelet Volume 13.0 H Neutrophils % 85.5 H Lymphocytes % 3.3 L Monocytes % 6.1 Eosinophils % 0.1 Basophils % 0.1 Nucleated Red Blood Cells % 0.1 H Neutrophils # 29.7 H Lymphocytes # 1.1 Monocytes # 2.1 H Eosinophils # 0.0 Basophils # 0.0 Nucleated Red Blood Cells # 0.0 Sodium Level 149 H Potassium Level 3.7 Chloride Level 115 H Carbon Dioxide Level 27 Anion Gap 11 Blood Urea Nitrogen 56 H Creatinine 1.41 H Glucose Level 126 Calcium Level 8.7 Phosphorus Level 3.4 Magnesium Level 1.5 L Prealbumin 11.1 L Test 01/21/17 05:54 01/21/17 08:34 01/21/17 12:44 Bedside Glucose 119 113 141 Medications Medications Current Medications Ondansetron HCl (Zofran Inj) 4 mg Q6H PRN IV NAUSEA AND/OR VOMITING Last administered on 01/03/17 14:52; Admin Dose 4 MG; Start 01/02/17 at 23:00 Docusate Sodium (Colace) 100 mg Q12H PRN PO CONSTIPATION; Start 01/02/17 at 23: 00 Rifaximin (Xifaxan) 550 mg BID PO Last administered on 01/21/17 08:35; Admin Dose 550 MG; Start 01/04/17 at 11:00 IV Flush (NS 10 ml) 10 ml PRN PRN IV IV PROTOCOL; Start 01/05/17 at 18:30 Diagnostic Test (Pha) 1 ea 1 ea Q4 XX Last administered on 01/21/17 05:58; Admin Dose 1 EA; Start 01/06/17 at 17:00 Total Parenteral Nutrition (Tpn) 1,000 ml @ 50 mls/hr Q20H IV Last administered on 01/21/17 00:46; Admin Dose 50 MLS/HR; Start 01/09/17 at 18:00 Prednisolone (Prelone (Ped)) 40 mg DAILY PO Last administered on 01/21/17 08: 37; Admin Dose 40 MG; Start 01/12/17 at 09:00 Citric Acid/ Sodium Citrate (Bicitra) 30 ml TID NGT Last administered on 12:37; Admin Dose 30 ML; Start 01/12/17 at 09:00 Nystatin 5 ml 5 ml QID PO Last administered on 01/21/17 12:36; Admin Dose 5 ML ; Start 01/13/17 at 17:00 Dextrose (D5W) 1,000 ml @ 20 mls/hr Q24H IV Last administered on 01/19/17 20: 58; Admin Dose 20 MLS/HR; Start 01/15/17 at 18:30 Insulin Aspart (Novolog Insulin Pen) NOVOLOG *MILD* ALGORI... Q4 SC Last administered on 01/21/17 12:57; Admin Dose 1 UNIT; Start 01/15/17 at 21:00 Miscellaneous Information 1 ea NOTE XX ; Start 01/15/17 at 18:30 Glucose (Glutose) 15 gm Q15M PRN PO DECREASED GLUCOSE; Start 01/15/17 at 18:30 Glucose (Glutose) 22.5 gm Q15M PRN PO DECREASED GLUCOSE; Start 01/15/17 at 18: 30 Dextrose (D50w Syringe) 25 ml Q15M PRN IV DECREASED GLUCOSE; Start 01/15/17 at 18:30 Dextrose (D50w Syringe) 50 ml Q15M PRN IV DECREASED GLUCOSE; Start 01/15/17 at 18:30 Glucagon (Glucagen) 1 mg Q15M PRN IM DECREASED GLUCOSE; Start 01/15/17 at 18:30 Glucose (Glutose) 15 gm Q15M PRN BUCCAL DECREASED GLUCOSE; Start 01/15/17 at 18 :30 Morphine Sulfate (morphine) 1 mg Q4H PRN IM PAIN Last administered on 23:55; Admin Dose 1 MG; Start 01/16/17 at 09:00 Metoclopramide HCl (Reglan) 5 mg Q6 IV Last administered on 01/21/17 12:36; Admin Dose 5 MG; Start 01/16/17 at 18:00 Pentoxifylline 400 mg 400 mg DAILY PO Last administered on 01/21/17 08:35; Admin Dose 400 MG; Start 01/18/17 at 14:00 Caspofungin/ Sodium Chloride (Cancidas/NS) 250 ml @ 250 mls/hr Q24H IVPB Last administered on 01/21/17 12:41; Admin Dose 250 MLS/HR; Start 01/19/17 at 12:30 Famotidine (Pepcid Iv) 20 mg Q12 IV Last administered on 01/21/17 08:36; Admin Dose 20 MG; Start 01/20/17 at 09:00 Diazepam (Valium) 10 mg BID PRN PO ANXIETY Last administered on 01/21/17 10:42 ; Admin Dose 10 MG; Start 01/20/17 at 11:00 Lactulose (Enulose) 20 gm BID PO Last administered on 01/21/17 08:36; Admin Dose 20 GM; Start 01/20/17 at 21:00 Lorazepam (Ativan) 0.5 mg TID PO Last administered on 01/21/17 12:39; Admin Dose 0.5 MG; Start 01/20/17 at 21:00 KIM HOLLIS Jan 21, 2017 15:45
[2017-01-21] MEDS ORDERED: MAGNESIUM SULFATE 2 GM/50 ML 50 ML IVPB ONE (16:30)
[2017-01-21] MEDS: SOD FERRIC GLUC COMPLX 125 MG in SOD CHLORIDE 0.9% 100 ML IVPB SCH (17:38)
[2017-01-21] MEDS: DEXTROSE 5% 1,000 ML IV SCH (18:30)
--- NOTE | 2017-01-21 18:37 | PN ---
Date/Time of Note Date/Time of Note DATE: 01/21/17 TIME: 18:29 Assessment/Plan Lines/Catheters IV Catheter Type (from [facility]): PICC Line Minaya in Place (from [facility]): Yes Assessment/Plan Chief Complaint/Hosp Course 1. Paralytic ileus 2nd acute processes. SBFT negative. Improved; +bowel function -Monitor 2. Acute on chronic alcoholic pancreatitis with peripancreatic fluid -Supportive measures -Judicious fluid management -Trend labs -Encourage cessation 3. Acute GI bleed from gastritis and esophageal varices secondary to alcoholism. Stable -Transfuse as needed -Supportive measures: ppi -Correct coagulopathy and platelet dysfunction 4. Anemia secondary to above -As above 5. Leukocytosis, multifactorial with SIRS and steroid therapy, ? infectious; on abx therapy; increasing -Close monitoring -Antibiotics -? ID consult 6. Alcoholic hepatitis with hepatosplenomegaly; worsening LFT's -Medical and GI optimization 7. Chronic alcohol abuse with Delirium Tremens; no tremors -Encourage cessation -Sedation/intubation 8. Subcapsular liver collection possible hematoma versus other -Monitor 9. Electrolyte imbalance -Correct with replacements and fluid management 10. Alcohol withdrawal with tachypnea, tachycardia and delirium tremens; improved -supportive 11. NICOLAS: output improving. improving -judicious fluids -avoid nephrotoxic meds Thank you. Patient seen and examined in collaboration with Dr. Bob Tristan. Problems: Subjective 24 Hr Interval Summary Intermittently agitated with sitter. Luekocytosis worsened but no fevers, chills. +bowel function. Cr improving. No cp, palpitations, n/v/d/dysuria, sob, bateman, dizziness, tremors. Exam/Review of Systems Vital Signs Vitals Vital Signs Date Time Temp Pulse Resp B/P Pulse Ox O2 Delivery O2 Flow Rate FiO2 01/21/17 15:00 97.9 80 22 129/88 96 01/19/17 16:00 Room Air 01/18/17 18:12 2.0 01/18/17 05:59 28 Intake and Output 01/20/17 01/20/17 01/21/17 15:00 23:00 07:00 Intake Total 350 ml 540 ml 2000 ml Output Total 1400 ml Balance 350 ml 540 ml 600 ml Exam Free Text/Dictation Constitutional: No distress, Not oriented. more alert Psych: No nl mood/affect Head: atraumatic, normocephalic, No hematomas, No lacerations Eyes: EOMI, PERRL, icteric ENMT: nl external ears & nose, nl lips & teeth. Mucosa pink and dry. Neck: non-tender, supple, No jvd Respiratory: No congested cough, No labored breathing Cardiovascular: No edema, No regular rate and rhythm Gastrointestinal: soft, non-tender, distended (improved). No rebound or guarding; +stool/gas Musculoskeletal: nl extremities to inspection, No joint tenderness; BLE edema Extremities: normal pulses, No calf tenderness, No cyanosis Neurological: Responsive Skin: rash or lesions (Jaundice), No diaphoresis, No nl turgor : minaya with luis output (improved; increased amount) Lymph: nl lymph nodes, nontender Results Result Diagram: 01/21/1751101/21/17511 ELIO GIBBONS NP Jan 21, 2017 18:37
[2017-01-21 19:30] VITALS: BP 130/69; RESP 19
[2017-01-22] MEDS: METOCLOPRAMIDE 10 MG INJ IV SCH ×4 (00:39→17:28)
[2017-01-22] MEDS: INSULIN ASPART [NOVOLOG] 3 ML PEN SC SCH ×6 (00:44→21:00)
[2017-01-22] MEDS: ACCU-CHEK XX SCH ×6 (01:00→21:58)
[2017-01-22 01:34] VITALS: BP 133/74; RESP 19
[2017-01-22 06:26] LABS: CALCIUM 8.3 mg/dl (8.4-10.2); CREATININE 1.4 mg/dl (0.61-1.24); MAGNESIUM 2.1 mg/dl (1.7-2.5); PHOSPHORUS 3.7 mg/dl (2.5-4.9); POTASSIUM 5.9 mmol/L (3.5-5.1)
[2017-01-22 08:12] VITALS: BP 133/70; RESP 18
[2017-01-22] MEDS: PENTOXIFYLLINE (SR) 400 MG TAB PO SCH ×2 (09:00→17:29)
[2017-01-22] MEDS: FAMOTIDINE 20 MG INJ IV SCH ×2 (09:14→21:57)
[2017-01-22] MEDS: LORAZEPAM 0.5 MG TAB PO SCH ×3 (09:15→21:57)
[2017-01-22] MEDS: RIFAXIMIN 550 MG TAB PO SCH ×2 (09:15→21:57)
[2017-01-22] MEDS: NYSTATIN SUSP 5 ML CUP PO SCH ×4 (09:16→21:57)
[2017-01-22] MEDS: predniSOLONE (3 MG/ML PO SYG) PO SCH (09:16)
[2017-01-22] MEDS: LACTULOSE 30ML CUP PO SCH ×2 (09:16→21:57)
[2017-01-22] MEDS: CITRIC ACID/NA CITRATE 30 ML CUP NGT SCH ×3 (09:16→21:57)
[2017-01-22] MEDS: BALSAM PERU/CASTOR OIL 60 GM TUBE TOP SCH ×2 (09:22→21:58)
[2017-01-22] MEDS: DEXTROSE 5% 1,000 ML IV SCH (11:16)
[2017-01-22] MEDS: CASPOFUNGIN 35 MG in SOD CHLORIDE 0.9% 250 ML IVPB SCH (12:36)
[2017-01-22] MEDS ORDERED: NA POLYST SULFON 15 GM/60 ML BTL PR ONE (13:30)
--- NOTE | 2017-01-22 13:47 | PN ---
Date/Time of Note Date/Time of Note DATE: 01/22/17 TIME: 13:32 Assessment/Plan VTE Prophylaxis VTE Prophylaxis Intervention: anti-embolic stocking Lines/Catheters IV Catheter Type (from Nrsg): PICC Line Central line still needed: Yes Urinary Cath still in place: Yes Reason Cath still needed: urinary retention Assessment/Plan Chief Complaint/Hosp Course 1. s/p upper GI bleed s/P EGD with gastritis and gastroparesis on Protonix and Reglan 2. ETOH withdrawal resolved 3. ETOH pancreatitis 4. Acute on chronic liver failure likely Etoh abuse with elevated INR, Hyperbilirubenemia, low platelets, 5. Hepatic encephalopathy with elevated Ammonia levels still 134 6. HX Depression 7. HX of Respiratory failure 8. NICOLAS likely prerenal vs HRS, Cr peaked to 2.12, 9. Severe Anemia 10. Leukocytosis could be pancreatitis vs aspiration on cefepime, 11. Hx of Bradycardia 12.. Paralytic ileus resolved 13. HYperkalemia Problems: Assessment/Plan 1. continue TPN, pt is still no eating well 2. Continue treatment 3. Kayaxalate for hyperkalemia Subjective 24 Hr Interval Summary Subjective hx not possible: other (lethargic) Exam/Review of Systems Vital Signs Vitals Vital Signs Date Time Temp Pulse Resp B/P Pulse Ox O2 Delivery O2 Flow Rate FiO2 01/22/17 08:12 97.6 81 18 133/70 94 01/19/17 16:00 Room Air 01/18/17 18:12 2.0 Intake and Output 01/21/17 01/21/17 01/22/17 15:00 23:00 07:00 Intake Total 250 ml 1550 ml 1100 ml Output Total 150 ml Balance 250 ml 1400 ml 1100 ml Exam Constitutional: other (lethargic) Neck: supple Respiratory: diminished breath sounds Cardiovascular: regular rate and rhythm Gastrointestinal: other (rectal; tube), soft Results Result Diagram: 01/21/17 0512 01/22/17 0516 Results 24 hrs Laboratory Tests Test 01/21/17 17:47 01/21/17 20:34 01/22/17 00:43 01/22/17 05:16 Bedside Glucose 139 183 131 Sodium Level 143 Potassium Level 5.9 #H Chloride Level 111 H Carbon Dioxide Level 24 Anion Gap 14 Blood Urea Nitrogen 48 H Creatinine 1.40 H Glucose Level 365 #H Calcium Level 8.3 L Phosphorus Level 3.7 Magnesium Level 2.1 Test 01/22/17 05:17 01/22/17 05:27 01/22/17 09:13 Ammonia 28 Bedside Glucose 116 131 Medications Medications Current Medications Ondansetron HCl (Zofran Inj) 4 mg Q6H PRN IV NAUSEA AND/OR VOMITING Last administered on 01/03/17 14:52; Admin Dose 4 MG; Start 01/02/17 at 23:00 Docusate Sodium (Colace) 100 mg Q12H PRN PO CONSTIPATION; Start 01/02/17 at 23: 00 Rifaximin (Xifaxan) 550 mg BID PO Last administered on 01/22/17 09:15; Admin Dose 550 MG; Start 01/04/17 at 11:00 IV Flush (NS 10 ml) 10 ml PRN PRN IV IV PROTOCOL; Start 01/05/17 at 18:30 Diagnostic Test (Pha) 1 ea 1 ea Q4 XX Last administered on 01/22/17 09:17; Admin Dose 1 EA; Start 01/06/17 at 17:00 Total Parenteral Nutrition (Tpn) 1,000 ml @ 50 mls/hr Q20H IV Last administered on 01/21/17 17:24; Admin Dose 50 MLS/HR; Start 01/09/17 at 18:00 Prednisolone (Prelone (Ped)) 40 mg DAILY PO Last administered on 01/22/17 09: 16; Admin Dose 40 MG; Start 01/12/17 at 09:00 Citric Acid/ Sodium Citrate (Bicitra) 30 ml TID NGT Last administered on 09:16; Admin Dose 30 ML; Start 01/12/17 at 09:00 Nystatin 5 ml 5 ml QID PO Last administered on 01/22/17 09:16; Admin Dose 5 ML ; Start 01/13/17 at 17:00 Dextrose (D5W) 1,000 ml @ 20 mls/hr Q24H IV Last administered on 01/22/17 11: 16; Admin Dose 20 MLS/HR; Start 01/15/17 at 18:30 Insulin Aspart (Novolog Insulin Pen) NOVOLOG *MILD* ALGORI... Q4 SC Last administered on 01/21/17 20:41; Admin Dose 2 UNIT; Start 01/15/17 at 21:00 Miscellaneous Information 1 ea NOTE XX ; Start 01/15/17 at 18:30 Glucose (Glutose) 15 gm Q15M PRN PO DECREASED GLUCOSE; Start 01/15/17 at 18:30 Glucose (Glutose) 22.5 gm Q15M PRN PO DECREASED GLUCOSE; Start 01/15/17 at 18: 30 Dextrose (D50w Syringe) 25 ml Q15M PRN IV DECREASED GLUCOSE; Start 01/15/17 at 18:30 Dextrose (D50w Syringe) 50 ml Q15M PRN IV DECREASED GLUCOSE; Start 01/15/17 at 18:30 Glucagon (Glucagen) 1 mg Q15M PRN IM DECREASED GLUCOSE; Start 01/15/17 at 18:30 Glucose (Glutose) 15 gm Q15M PRN BUCCAL DECREASED GLUCOSE; Start 01/15/17 at 18 :30 Morphine Sulfate (morphine) 1 mg Q4H PRN IM PAIN Last administered on 23:55; Admin Dose 1 MG; Start 01/16/17 at 09:00 Metoclopramide HCl (Reglan) 5 mg Q6 IV Last administered on 01/22/17 12:35; Admin Dose 5 MG; Start 01/16/17 at 18:00 Pentoxifylline 400 mg 400 mg DAILY PO Last administered on 01/21/17 08:35; Admin Dose 400 MG; Start 01/18/17 at 14:00 Caspofungin/ Sodium Chloride (Cancidas/NS) 250 ml @ 250 mls/hr Q24H IVPB Last administered on 01/22/17 12:36; Admin Dose 250 MLS/HR; Start 01/19/17 at 12:30 Famotidine (Pepcid Iv) 20 mg Q12 IV Last administered on 01/22/17 09:14; Admin Dose 20 MG; Start 01/20/17 at 09:00 Diazepam (Valium) 10 mg BID PRN PO ANXIETY Last administered on 01/21/17 10:42 ; Admin Dose 10 MG; Start 01/20/17 at 11:00 Lactulose (Enulose) 20 gm BID PO Last administered on 01/22/17 09:16; Admin Dose 20 GM; Start 01/20/17 at 21:00 Lorazepam 0.5 mg 0.5 mg TID PO Last administered on 01/22/17 09:15; Admin Dose 0.5 MG; Start 01/20/17 at 21:00 Ferric Sodium Gluconate Complex/ Sodium Chloride (Ferrlecit/NS) 110 ml @ 100 mls/hr Q24H IVPB Last administered on 01/21/17 17:38; Admin Dose 100 MLS/HR; Start 01/21/17 at 18:00; Stop 01/23/17 at 19:05 KIM HOLLIS Jan 22, 2017 13:47
[2017-01-22] MEDS: TPN 1,000 ML IV SCH (13:48)
[2017-01-22 14:00] VITALS: BP 130/76; RESP 19
--- NOTE | 2017-01-22 14:35 | CONS ---
Date/Time of Note Date/Time of Note DATE: 01/22/17 TIME: 14:33 Assessment/Plan Assessment/Plan Chief Complaint/Hosp Course SUBJECTIVE: No acute events overnight. Sleeping, looks comfortable, no fevers, still confused per report, urinating INDWELLINGS: [place], PICC line. ANTIMICROBIALS: Cancidas PHYSICAL EXAMINATION: GENERAL: This is an ill-appearing, middle-aged, [place] man who is obtunded and in no distress. HEENT: Head atraumatic, normocephalic. Sclerae icteric. Buccal mucosa dry. NECK: Supple. CHEST: Rise symmetrical. Breath sounds diminished to bases. HEART: S1, S2. ABDOMEN: Soft with guarding on palpation. Bowel tones present. EXTREMITIES: With trace edema. ASSESSMENT: 1. S/p sepsis 2. Acute pancreatitis. 3. Decompensated liver cirrhosis. 4. Ascites, status post paracentesis==> cx negative. 5. Status post respiratory failure, patient is extubated. 6. Acute hepatic encephalopathy. 7. Acute kidney injury with kidney function improving. 8. Persistent leukocytosis secondary to sepsis and also steroid induced. 9. Ethyl alcohol dependency abuse. PLAN: The patient remains stable, abx discontinued, continue present care, aspiration precautions, dc Cancidas, f/u cxr in am ROXANA RN Problems: Consultation Date/Type/Reason Admit Date/Time Jan 02, 2017 at 19:30 Initial Consult Date 01/07/17 Type of Consultation: ID Referring Provider: BRAEDEN LUNSFORD MD Exam/Review of Systems Vital Signs Vitals Vital Signs Date Time Temp Pulse Resp B/P Pulse Ox O2 Delivery O2 Flow Rate FiO2 01/22/17 08:12 97.6 81 18 133/70 94 01/19/17 16:00 Room Air 01/18/17 18:12 2.0 Intake and Output 01/21/17 01/21/17 01/22/17 15:00 23:00 07:00 Intake Total 250 ml 1550 ml 1100 ml Output Total 150 ml Balance 250 ml 1400 ml 1100 ml Results Result Diagram: 01/21/17 0512 01/22/17 0516 Results 24 hrs Laboratory Tests Test 01/21/17 17:47 01/21/17 20:34 01/22/17 00:43 01/22/17 05:16 Bedside Glucose 139 183 131 Sodium Level 143 Potassium Level 5.9 #H Chloride Level 111 H Carbon Dioxide Level 24 Anion Gap 14 Blood Urea Nitrogen 48 H Creatinine 1.40 H Glucose Level 365 #H Calcium Level 8.3 L Phosphorus Level 3.7 Magnesium Level 2.1 Test 01/22/17 05:17 01/22/17 05:27 01/22/17 09:13 01/22/17 13:45 Ammonia 28 Bedside Glucose 116 131 129 Medications Medications Current Medications Ondansetron HCl (Zofran Inj) 4 mg Q6H PRN IV NAUSEA AND/OR VOMITING Last administered on 01/03/17 14:52; Admin Dose 4 MG; Start 01/02/17 at 23:00 Rifaximin (Xifaxan) 550 mg BID PO Last administered on 01/22/17 09:15; Admin Dose 550 MG; Start 01/04/17 at 11:00 IV Flush (NS 10 ml) 10 ml PRN PRN IV IV PROTOCOL; Start 01/05/17 at 18:30 Diagnostic Test (Pha) 1 ea 1 ea Q4 XX Last administered on 01/22/17 13:46; Admin Dose 1 EA; Start 01/06/17 at 17:00 Total Parenteral Nutrition (Tpn) 1,000 ml @ 50 mls/hr Q20H IV Last administered on 01/22/17 13:48; Admin Dose 50 MLS/HR; Start 01/09/17 at 18:00 Prednisolone (Prelone (Ped)) 40 mg DAILY PO Last administered on 01/22/17 09: 16; Admin Dose 40 MG; Start 01/12/17 at 09:00 Citric Acid/ Sodium Citrate (Bicitra) 30 ml TID NGT Last administered on 13:48; Admin Dose 30 ML; Start 01/12/17 at 09:00 Nystatin 5 ml 5 ml QID PO Last administered on 01/22/17 13:48; Admin Dose 5 ML ; Start 01/13/17 at 17:00 Dextrose (D5W) 1,000 ml @ 20 mls/hr Q24H IV Last administered on 01/22/17 11: 16; Admin Dose 20 MLS/HR; Start 01/15/17 at 18:30 Insulin Aspart (Novolog Insulin Pen) NOVOLOG *MILD* ALGORI... Q4 SC Last administered on 01/21/17 20:41; Admin Dose 2 UNIT; Start 01/15/17 at 21:00 Miscellaneous Information 1 ea NOTE XX ; Start 01/15/17 at 18:30 Glucose (Glutose) 15 gm Q15M PRN PO DECREASED GLUCOSE; Start 01/15/17 at 18:30 Glucose (Glutose) 22.5 gm Q15M PRN PO DECREASED GLUCOSE; Start 01/15/17 at 18: 30 Dextrose (D50w Syringe) 25 ml Q15M PRN IV DECREASED GLUCOSE; Start 01/15/17 at 18:30 Dextrose (D50w Syringe) 50 ml Q15M PRN IV DECREASED GLUCOSE; Start 01/15/17 at 18:30 Glucagon (Glucagen) 1 mg Q15M PRN IM DECREASED GLUCOSE; Start 01/15/17 at 18:30 Glucose (Glutose) 15 gm Q15M PRN BUCCAL DECREASED GLUCOSE; Start 01/15/17 at 18 :30 Morphine Sulfate (morphine) 1 mg Q4H PRN IM PAIN Last administered on 23:55; Admin Dose 1 MG; Start 01/16/17 at 09:00 Metoclopramide HCl (Reglan) 5 mg Q6 IV Last administered on 01/22/17 12:35; Admin Dose 5 MG; Start 01/16/17 at 18:00 Pentoxifylline 400 mg 400 mg DAILY PO Last administered on 01/21/17 08:35; Admin Dose 400 MG; Start 01/18/17 at 14:00 Caspofungin/ Sodium Chloride (Cancidas/NS) 250 ml @ 250 mls/hr Q24H IVPB Last administered on 01/22/17 12:36; Admin Dose 250 MLS/HR; Start 01/19/17 at 12:30 Famotidine (Pepcid Iv) 20 mg Q12 IV Last administered on 01/22/17 09:14; Admin Dose 20 MG; Start 01/20/17 at 09:00 Diazepam (Valium) 10 mg BID PRN PO ANXIETY Last administered on 01/21/17 10:42 ; Admin Dose 10 MG; Start 01/20/17 at 11:00 Lactulose (Enulose) 20 gm BID PO Last administered on 01/22/17 09:16; Admin Dose 20 GM; Start 01/20/17 at 21:00 Lorazepam 0.5 mg 0.5 mg TID PO Last administered on 01/22/17 09:15; Admin Dose 0.5 MG; Start 01/20/17 at 21:00 Ferric Sodium Gluconate Complex/ Sodium Chloride (Ferrlecit/NS) 110 ml @ 100 mls/hr Q24H IVPB Last administered on 01/21/17 17:38; Admin Dose 100 MLS/HR; Start 01/21/17 at 18:00; Stop 01/23/17 at 19:05 ROSALIA BARKER CIRCUS PERFORMER Jan 22, 2017 14:35
--- NOTE | 2017-01-22 15:17 | PN ---
Date/Time of Note Date/Time of Note DATE: 01/22/17 TIME: 15:11 Assessment/Plan Lines/Catheters IV Catheter Type (from [facility]): PICC Line Minaya in Place (from [facility]): Yes Assessment/Plan Chief Complaint/Hosp Course 1. Paralytic ileus 2nd acute processes. SBFT negative. Improved; +bowel function -Monitor 2. Acute on chronic alcoholic pancreatitis with peripancreatic fluid -Supportive measures -Judicious fluid management -Trend labs -Encourage cessation 3. Acute GI bleed from gastritis and esophageal varices secondary to alcoholism. Stable -Transfuse as needed -Supportive measures: ppi -Correct coagulopathy and platelet dysfunction 4. Anemia secondary to above -As above 5. Leukocytosis, multifactorial with SIRS and steroid therapy, ? infectious; on abx therapy; increasing; per ID -Close monitoring -Antibiotics 6. Alcoholic hepatitis with hepatosplenomegaly; worsening LFT's -Medical and GI optimization 7. Chronic alcohol abuse with Delirium Tremens; no tremors -Encourage cessation -Sedation/intubation 8. Subcapsular liver collection possible hematoma versus other -Monitor 9. Electrolyte imbalance -Correct with replacements and fluid management 10. Alcohol withdrawal with tachypnea, tachycardia and delirium tremens; improved -supportive 11. NICOLAS: output improving. improving -judicious fluids -avoid nephrotoxic meds Thank you. Patient seen and examined in collaboration with Dr. Bob Tristan. Problems: Subjective 24 Hr Interval Summary Continues to be intermittently confused. +bowel function. Increasing leukocytosis. No fevers, chills, sob, congested cough, [place], dizziness, cp, palpitations. + rectal tube output. Exam/Review of Systems Vital Signs Vitals Vital Signs Date Time Temp Pulse Resp B/P Pulse Ox O2 Delivery O2 Flow Rate FiO2 01/22/17 08:12 97.6 81 18 133/70 94 01/19/17 16:00 Room Air 01/18/17 18:12 2.0 Intake and Output 01/21/17 01/21/17 01/22/17 15:00 23:00 07:00 Intake Total 250 ml 1550 ml 1100 ml Output Total 150 ml Balance 250 ml 1400 ml 1100 ml Exam Free Text/Dictation Constitutional: No distress, Not oriented. more alert Psych: No nl mood/affect Head: atraumatic, normocephalic, No hematomas, No lacerations Eyes: EOMI, PERRL, icteric ENMT: nl external ears & nose, nl lips & teeth. Mucosa pink and dry. Neck: non-tender, supple, No jvd Respiratory: No congested cough, No labored breathing Cardiovascular: No edema, No regular rate and rhythm Gastrointestinal: soft, min-tender (RLQ,noted with bruising), distended ( improved). No rebound or guarding; +stool/gas per rectal tube Musculoskeletal: nl extremities to inspection, No joint tenderness; BLE edema Extremities: normal pulses, No calf tenderness, No cyanosis Neurological: Responsive Skin: rash or lesions (Jaundice), No diaphoresis, No nl turgor : minaya with luis output (improved; increased amount) Lymph: nl lymph nodes, nontender Results Result Diagram: 01/21/17 0512 01/22/17 0516 ELIO GIBBONS NP Jan 22, 2017 15:17
--- NOTE | 2017-01-22 17:19 | CONS ---
Date/Time of Note Date/Time of Note DATE: 01/22/17 TIME: 17:17 Assessment/Plan Assessment/Plan Additional Assessment/Plan IMPRESSION: 1. Delirium tremens. Resolved 2. Hepatic encephalopathy. Better patient is now communicating with slurred speech 3. Alcoholic liver disease. Patient is on prednisolone 4. Pancreatitis. Amylase has come down . Lipase is down 5. Leukocytosis. Persistent most probably related to alcoholic hepatitis 6. Renal insufficiency. Though the urine output is good. Renal function has improved a lot with good urine output. Creatinine is coming down. Now it is 1.6 7. Pedal edema and ascites, reducing 8. Thrombocytopenia better 9. Ileus, small bowel follow-through was negative 10. Patient's gastroparesis might be related to uremia better 11. Hypernatremia Plan 1. Continue prednisolone 2. Your liquid diet 3. Patient is off propofol for more than 8 hours, he is moving all his extremities and responding to his name. Patient is also not tachycardic. I discussed with white sugar syrup operator to try the weaning process. 4. Reduce IV fluid since patient is third spacing, may need albumin. 5. Octreotide discontinued 6. We will monitor WBC, INR, total bilirubin, and creatinine on a regular basis 7. I had [id number] discussion with the mother and the family members and also with the metalizing machine operator and white sugar syrup operator. 8. And is on pentoxifylline 400 mg once a day 10. Please avoid narcotics and also Ativan patient confusional state is secondary to hepatic encephalopathy 11. Abdominal paracentesis again 12. Physical therapy and discontinue Ativan 13. Patient started on pentoxifylline 14. May discontinue Intralipid Consultation Date/Type/Reason Admit Date/Time Jan 02, 2017 at 19:30 Type of Consultation: ID Referring Provider: BRAEDEN LUNSFORD MD 24 HR Interval Summary Free Text/Dictation And is still confused, has slurred speech. At times restless and wants to get out of the bed Exam/Review of Systems Vital Signs Vitals Vital Signs Date Time Temp Pulse Resp B/P Pulse Ox O2 Delivery O2 Flow Rate FiO2 01/22/17 14:00 97.7 82 19 130/76 95 01/19/17 16:00 Room Air 01/18/17 18:12 2.0 Intake and Output 01/21/17 01/21/17 01/22/17 15:00 23:00 07:00 Intake Total 250 ml 1550 ml 1100 ml Output Total 150 ml Balance 250 ml 1400 ml 1100 ml Exam Constitutional: alert, oriented, well developed Psych: nl mood/affect, no complaints Head: atraumatic, normocephalic Eyes: EOMI, PERRL, nl conjunctiva, nl lids, nl sclera ENMT: nl external ears & nose, nl lips & teeth, nl nasal mucosa & septum Neck: non-tender, supple Respiratory: clear to auscultation, normal air movement Cardiovascular: nl pulses, regular rate and rhythm Gastrointestinal: nl liver, spleen, non-tender, soft Musculoskeletal: nl extremities to inspection, nl gait and stance Extremities: normal pulses Neurological: WELL SERVICE PUMP EQUIPMENT OPERATOR II-XII intact, nl mental status, nl speech, nl strength Skin: nl turgor, No rash or lesions Lymph: nl lymph nodes Results Result Diagram: 01/21/1712 01/22/17 0516 Results 24 hrs Laboratory Tests Test 01/21/17 17:47 01/21/17 20:34 01/22/17 00:43 01/22/17 05:16 Bedside Glucose 139 183 131 Sodium Level 143 Potassium Level 5.9 #H Chloride Level 111 H Carbon Dioxide Level 24 Anion Gap 14 Blood Urea Nitrogen 48 H Creatinine 1.40 H Glucose Level 365 #H Calcium Level 8.3 L Phosphorus Level 3.7 Magnesium Level 2.1 Test 01/22/17 05:17 01/22/17 05:27 01/22/17 09:13 01/22/17 13:45 Ammonia 28 Bedside Glucose 116 131 129 Medications Medications Current Medications Ondansetron HCl (Zofran Inj) 4 mg Q6H PRN IV NAUSEA AND/OR VOMITING Last administered on 01/03/17 14:52; Admin Dose 4 MG; Start 01/02/17 at 23:00 Rifaximin (Xifaxan) 550 mg BID PO Last administered on 01/22/17 09:15; Admin Dose 550 MG; Start 01/04/17 at 11:00 IV Flush (NS 10 ml) 10 ml PRN PRN IV IV PROTOCOL; Start 01/05/17 at 18:30 Diagnostic Test (Pha) 1 ea 1 ea Q4 XX Last administered on 01/22/17 13:46; Admin Dose 1 EA; Start 01/06/17 at 17:00 Total Parenteral Nutrition (Tpn) 1,000 ml @ 50 mls/hr Q20H IV Last administered on 01/22/17 13:48; Admin Dose 50 MLS/HR; Start 01/09/17 at 18:00 Prednisolone (Prelone (Ped)) 40 mg DAILY PO Last administered on 01/22/17 09: 16; Admin Dose 40 MG; Start 01/12/17 at 09:00 Citric Acid/ Sodium Citrate (Bicitra) 30 ml TID NGT Last administered on 13:48; Admin Dose 30 ML; Start 01/12/17 at 09:00 Nystatin 5 ml 5 ml QID PO Last administered on 01/22/17 13:48; Admin Dose 5 ML ; Start 01/13/17 at 17:00 Dextrose (D5W) 1,000 ml @ 20 mls/hr Q24H IV Last administered on 01/22/17 11: 16; Admin Dose 20 MLS/HR; Start 01/15/17 at 18:30 Insulin Aspart (Novolog Insulin Pen) NOVOLOG *MILD* ALGORI... Q4 SC Last administered on 01/21/17 20:41; Admin Dose 2 UNIT; Start 01/15/17 at 21:00 Miscellaneous Information 1 ea NOTE XX ; Start 01/15/17 at 18:30 Glucose (Glutose) 15 gm Q15M PRN PO DECREASED GLUCOSE; Start 01/15/17 at 18:30 Glucose (Glutose) 22.5 gm Q15M PRN PO DECREASED GLUCOSE; Start 01/15/17 at 18: 30 Dextrose (D50w Syringe) 25 ml Q15M PRN IV DECREASED GLUCOSE; Start 01/15/17 at 18:30 Dextrose (D50w Syringe) 50 ml Q15M PRN IV DECREASED GLUCOSE; Start 01/15/17 at 18:30 Glucagon (Glucagen) 1 mg Q15M PRN IM DECREASED GLUCOSE; Start 01/15/17 at 18:30 Glucose (Glutose) 15 gm Q15M PRN BUCCAL DECREASED GLUCOSE; Start 01/15/17 at 18 :30 Morphine Sulfate (morphine) 1 mg Q4H PRN IM PAIN Last administered on 23:55; Admin Dose 1 MG; Start 01/16/17 at 09:00 Metoclopramide HCl (Reglan) 5 mg Q6 IV Last administered on 01/22/17 12:35; Admin Dose 5 MG; Start 01/16/17 at 18:00 Pentoxifylline (Trental) 400 mg DAILY PO Last administered on 01/21/17 08:35; Admin Dose 400 MG; Start 01/18/17 at 14:00 Famotidine (Pepcid Iv) 20 mg Q12 IV Last administered on 01/22/17 09:14; Admin Dose 20 MG; Start 01/20/17 at 09:00 Diazepam (Valium) 10 mg BID PRN PO ANXIETY Last administered on 01/21/17 10:42 ; Admin Dose 10 MG; Start 01/20/17 at 11:00 Lactulose (Enulose) 20 gm BID PO Last administered on 01/22/17 09:16; Admin Dose 20 GM; Start 01/20/17 at 21:00 Lorazepam 0.5 mg 0.5 mg TID PO Last administered on 01/22/17 14:58; Admin Dose 0.5 MG; Start 01/20/17 at 21:00 Ferric Sodium Gluconate Complex/ Sodium Chloride (Ferrlecit/NS) 110 ml @ 100 mls/hr Q24H IVPB Last administered on 01/21/17 17:38; Admin Dose 100 MLS/HR; Start 01/21/17 at 18:00; Stop 01/23/17 at 19:05 LAURA CORDERO MD Jan 22, 2017 17:19
[2017-01-22] MEDS: SOD FERRIC GLUC COMPLX 125 MG in SOD CHLORIDE 0.9% 100 ML IVPB SCH (18:08)
[2017-01-22 19:34] VITALS: BP 136/64; RESP 19
[2017-01-23] MEDS: METOCLOPRAMIDE 10 MG INJ IV SCH ×5 (00:40→23:40)
[2017-01-23] MEDS: ACCU-CHEK XX SCH ×6 (01:00→21:00)
[2017-01-23] MEDS: INSULIN ASPART [NOVOLOG] 3 ML PEN SC SCH ×6 (01:00→20:50)
[2017-01-23 02:34] VITALS: BP 125/59; RESP 18
--- NOTE | 2017-01-23 04:16 | PN ---
DATE: 01/21/2017 INFECTIOUS DISEASE PROGRESS NOTE SUBJECTIVE: Patient is awake, confused. He is trying to urinate, however, unable to do that, per s taff. He is urinating in diaper and they change diapers twice a day. Temperature 97.6, pulse 88, r espirations 20, blood pressure 129/68, saturation 96%. WBC 34.7, H and H 8 and 24.3, platelets 101, neutrophils 85.5, BUN 56, creatinine 1.41. ANTIMICROBIALS: 1. Vancomycin. 2. Meropenem. 3. Cancidas. INDWELLINGS: The patient has a PICC line and rectal tube. PHYSICAL EXAMINATION: GENERAL: This is a chronically ill-appearing, middle-aged, [place] man who is awake, very sluggish a nd in no distress. HEENT: Head atraumatic, normocephalic. Sclerae anicteric. Buccal mucosa dry. NECK: Supple, trachea midline. CHEST: Rise symmetrical. Breath sounds diminished to bases. HEART: S1, S2. ABDOMEN: Soft. Bowel tones hypoactive. EXTREMITIES: Without cyanosis, but with trace edema. ASSESSMENT: 1. Status post septic shock. 2. Acute alcoholic pancreatitis. 3. Resolving encephalopathy. 4. Decompensated liver cirrhosis. 5. Ascites, status post paracentesis with cultures being negative. 6. Status post respiratory failure. 7. Acute kidney injury, improving. 8. Persistent leukocytosis secondary to above steroid induced. The patient remains on predni sone. PLAN: Patient remains clinically stable. We are going to discontinue vancomycin and Merrem and obs erve him. Continue anti-aspiration measures. Repeat cultures p.r.n. Continue Cancidas for now. Dictated By: ROSALIA BARKER CAR COUPLER for MADELAINE BURR MD NI/NTS Conf#: [id number] DID#: [id number] CC: JAYME BANSAL MD;*EndCC*
[2017-01-23 05:55] LABS: ABNORMAL IP MESSAGE 1; HEMATOCRIT 27.1 % (42.0-52.0); MEAN CORPUSCULAR HEMOGLOBIN 35.7 pg (29.0-33.0); MEAN CORPUSCULAR HGB CONC 33.2 g/dl (32.0-37.0); MEAN CORPUSCULAR VOLUME 107.5 fl (82.0-101.0); MEAN PLATELET VOLUME 13.5 fl (7.4-10.4); NUCLEATED RED BLOOD CELLS% 0.1 /100WBC (0.0-0.0); PLATELET COUNT 109 10^3/UL (140-415); POSITIVE DIFF @See below; RED BLOOD COUNT 2.52 10^6/ul (4.70-6.10); RED CELL DISTRIBUTION WIDTH 24.5 % (11.5-14.5); WHITE BLOOD COUNT 41.9 10^3/ul (4.8-10.8)
[2017-01-23 06:11] LABS: INR 2.16; PROTIME 24.3 Sec (12.2-14.2); PT RATIO 1.9
[2017-01-23 06:34] LABS: ALBUMIN 2.5 g/dl (3.3-4.9); ALBUMIN/GLOBULIN RATIO 0.65; BILIRUBIN,INDIRECT 2.7 mg/dl (0-1.1); CALCIUM 8.8 mg/dl (8.4-10.2); CREATININE 1.38 mg/dl (0.61-1.24); POTASSIUM 3.6 mmol/L (3.5-5.1); TOTAL PROTEIN 6.3 g/dl (6.1-8.1)
[2017-01-23 06:35] LABS: BILIRUBIN,TOTAL 28.5 mg/dl (0.2-1.3)
[2017-01-23 06:38] LABS: BILIRUBIN,DIRECT 25.8 mg/dl (0.00-0.20)
[2017-01-23 07:16] VITALS: BP 126/67; RESP 18
[2017-01-23] MEDS: CITRIC ACID/NA CITRATE 30 ML CUP NGT SCH ×3 (08:02→20:31)
[2017-01-23] MEDS: LORAZEPAM 0.5 MG TAB PO SCH ×3 (08:02→20:32)
[2017-01-23] MEDS: PENTOXIFYLLINE (SR) 400 MG TAB PO SCH (08:02)
[2017-01-23] MEDS: RIFAXIMIN 550 MG TAB PO SCH ×2 (08:02→20:31)
[2017-01-23] MEDS: NYSTATIN SUSP 5 ML CUP PO SCH ×4 (08:03→20:31)
[2017-01-23] MEDS: LACTULOSE 30ML CUP PO SCH ×2 (08:03→20:31)
[2017-01-23] MEDS: BALSAM PERU/CASTOR OIL 60 GM TUBE TOP SCH ×2 (08:05→20:51)
[2017-01-23] MEDS: predniSOLONE (3 MG/ML PO SYG) PO SCH (08:05)
[2017-01-23] MEDS: FAMOTIDINE 20 MG INJ IV SCH ×2 (08:05→20:31)
[2017-01-23] MEDS: TPN 1,000 ML IV SCH (08:14)
[2017-01-23 09:27] LABS: ANISOCYTOSIS 3+ (0-0); ERYTHROBLAST% (NRBC) (M) 1 % (0-0); HYPOCHROMASIA 1+ (0-0); METAMYELOCYTES %M 1 % (0-0); MONOCYTES % (M) 11 % (0-11); MYELOCYTES % (M) 2 % (0-0); PLATELET ESTIMATE DECREASED; POIKILOCYTOSIS 3+ (0-0); POLYCHROMASIA 3+ (0-0)
[2017-01-23] MEDS: morphine 2 MG INJ IV PRN (09:52)
[2017-01-23] MEDS ORDERED: morphine 2 MG INJ IM PRN (10:00)
[2017-01-23] MEDS ORDERED: PHYTONADIONE 10 MG/ML INJ SC ONE (10:30)
--- NOTE | 2017-01-23 11:14 | RADRPT ---
PROCEDURE: XR Chest. CLINICAL INDICATION: Shortness of breath. TECHNIQUE: Single frontal view. COMPARISON: 01/17/2017. FINDINGS: The nasogastric tube has been removed. There is a left arm PICC line in satisfactory and unchanged p osition. There is mild atelectasis or pneumonia at the lung bases, worse than seen previously. The l ungs are otherwise clear. The heart size is normal. There is no pleural effusion. There is no pneumothorax. IMPRESSION: 1. Nasogastric tube removed. 2. Worse appearance of the lung bases. 3. Otherwise unremarkable study. RPTAT: QQ .Jesse Sanchez MD, MD Date Time Electronically viewed and signed by .Jesse Sanchez MD, MD on 01/23/2017 11:14 .R/
[2017-01-23 14:00] VITALS: BP 132/71; RESP 18
[2017-01-23] MEDS: DIAZEPAM 5 MG TAB PO PRN (14:23)
--- NOTE | 2017-01-23 14:32 | PN ---
Date/Time of Note Date/Time of Note DATE: 01/23/17 TIME: 14:21 Assessment/Plan Lines/Catheters IV Catheter Type (from [facility]): PICC Line Minaya in Place (from [facility]): Yes Assessment/Plan Chief Complaint/Hosp Course 1. Paralytic ileus 2nd acute processes. SBFT negative. Improved; +bowel function -Monitor 2. Acute on chronic alcoholic pancreatitis with peripancreatic fluid -Supportive measures -Judicious fluid management -Trend labs -Encourage cessation 3. Acute GI bleed from gastritis and esophageal varices secondary to alcoholism. Stable -Transfuse as needed -Supportive measures: ppi -Correct coagulopathy and platelet dysfunction 4. Anemia secondary to above: h/h stable -As above 5. Leukocytosis, multifactorial with SIRS and steroid therapy, ? infectious( cxr with atelectasis vs. pna); on abx therapy, some dc'd by ID -Close monitoring -Antibiotics per ID 6. Alcoholic hepatitis with hepatosplenomegaly; elevated LFT's -Medical and GI optimization 7. Chronic alcohol abuse with Delirium Tremens; no tremors -Encourage cessation -Sedation/intubation 8. Subcapsular liver collection possible hematoma versus other -Monitor 9. Electrolyte imbalance -Correct with replacements and fluid management 10. Alcohol withdrawal with tachypnea, tachycardia and delirium tremens; improved -supportive 11. NICOLAS: output improving. improving -judicious fluids -avoid nephrotoxic meds 12. Atelectasis vs. pna -IS -increase activity-OOB as tolerated; PT Thank you. Patient seen and examined in collaboration with Dr. Bob Tristan. Problems: Subjective 24 Hr Interval Summary Continues to confused. Sitter continued. +rectal tube output (bm and gas). Leukocytosis. No abdominal pain. No fevers, chills, sob, congested cough, n/v/ dysuria. Exam/Review of Systems Vital Signs Vitals Vital Signs Date Time Temp Pulse Resp B/P Pulse Ox O2 Delivery O2 Flow Rate FiO2 01/23/17 07:16 97.7 79 18 126/67 95 01/19/17 16:00 Room Air Intake and Output 01/22/17 01/22/17 01/23/17 15:00 23:00 07:00 Intake Total 910 ml 910 ml 1040 ml Output Total 650 ml 1400 ml Balance 910 ml 260 ml -360 ml Exam Free Text/Dictation Constitutional: No distress, Not oriented. more alert Psych: No nl mood/affect Head: atraumatic, normocephalic, No hematomas, No lacerations Eyes: EOMI, PERRL, icteric ENMT: nl external ears & nose, nl lips & teeth. Mucosa pink and dry. icteric Neck: non-tender, supple, No jvd Respiratory: No congested cough, No labored breathing Cardiovascular: No edema, No regular rate and rhythm Gastrointestinal: soft, min-tender (RLQ,noted with bruising-improving), min distended. No rebound or guarding; +stool/gas per rectal tube Musculoskeletal: nl extremities to inspection, No joint tenderness; BLE edema Extremities: normal pulses, No calf tenderness, No cyanosis Neurological: Responsive Skin: rash or lesions (Jaundice), No diaphoresis, No nl turgor : minaya with luis output (improved; increased amount) Lymph: nl lymph nodes, nontender Results Result Diagram: 01/23/17 0459 01/23/17 0459 ELIO GIBBONS NP Jan 23, 2017 14:32
--- NOTE | 2017-01-23 15:03 | CONS ---
Date/Time of Note Date/Time of Note DATE: 01/23/17 TIME: 15:00 Assessment/Plan Assessment/Plan Additional Assessment/Plan Assessment and recommendations; 1. Patient admitted for hepatic encephalopathy as well as severe alcoholic hepatitis. Status post extubation. 2. Altered mental status with very gradual clinical improvement if any. 3. Anemia. 4. Upper GI bleed with interval resolution. Status post EGD. 5. Status post hepatorenal syndrome. With marked improvement in renal function. 6. Severe persistent hyper bilirubinemia. 7. Persistent severe leukocytosis, possibly a steroid response. Patient antibiotics now. 8. Status post paracentesis. Continue current supportive care. Continue to observe closely for any deterioration in mental status. Prognosis is guarded. Consultation Date/Type/Reason Admit Date/Time Jan 02, 2017 at 19:30 Initial Consult Date 01/07/17 Type of Consultation: Pulmonary Referring Provider: BRAEDEN LUNSFORD MD 24 HR Interval Summary Free Text/Dictation Patient's condition is tenuous at best. Remains confused. However patient does not appear to be agitated. Has been transferred out of ICU to the medical floor. General exam; young male, awake, currently in no distress. Able to talk but is confused. Exam/Review of Systems Vital Signs Vitals Vital Signs Date Time Temp Pulse Resp B/P Pulse Ox O2 Delivery O2 Flow Rate FiO2 01/23/17 14:00 97.5 90 18 132/71 94 01/19/17 16:00 Room Air Intake and Output 01/22/17 01/22/17 01/23/17 15:00 23:00 07:00 Intake Total 910 ml 910 ml 1040 ml Output Total 650 ml 1400 ml Balance 910 ml 260 ml -360 ml Exam HEENT exam; supple neck, no JVD. No lymphadenopathy. Midline trachea. No thyromegaly. Patient remains deeply icteric. Has fair dentition. No active bleeding seen in the oral cavity. Chest exam; clear to auscultation. S1-S2 audible, no murmurs. Regular rhythm. Abdomen exam; soft, nontender. Bowel sounds audible. Extremity exam; no edema. HOSPICE PLAN ADMINISTRATOR exam; patient is awake and follows simple commands. Results Result Diagram: 01/23/17 0459 01/23/17 0459 Results 24 hrs Laboratory Tests Test 01/22/17 17:26 01/22/17 22:12 01/23/17 00:43 01/23/17 04:59 Bedside Glucose 162 131 131 White Blood Count 41.9 #H Red Blood Count 2.52 L Hemoglobin 9.0 L Hematocrit 27.1 L Mean Corpuscular Volume 107.5 H Mean Corpuscular Hemoglobin 35.7 H Mean Corpuscular Hemoglobin Concent 33.2 Red Cell Distribution Width 24.5 H Platelet Count 109 L Mean Platelet Volume 13.5 H Neutrophils % Segmented Neutrophils % (Manual) 78 H Band Neutrophils % (Manual) 4 Lymphocytes % Lymphocytes % (Manual) 4 L Monocytes % Monocytes % (Manual) 11 Eosinophils % Basophils % Metamyelocytes % (manual) 1 H Myelocytes % (Manual) 2 H Nucleated Red Blood Cells % 1 H Neutrophils # Neutrophils # (Manual) 33.4 H Band Neutrophils # 1.6 H Absolute Lymphocytes (Manual) 1.6 Lymphocytes # Monocytes # Absolute Monocytes (Manual) 4.6 H Eosinophils # Basophils # Metamyelocytes # 0.4 H Myelocytes # 0.8 H Nucleated Red Blood Cells # Platelet Estimate DECREASED Polychromasia 3+ Hypochromasia 1+ Poikilocytosis 3+ Anisocytosis 3+ Macrocytosis 3+ Prothrombin Time 24.3 H Prothrombin Time Ratio 1.9 INR International Normalized Ratio 2.16 Sodium Level 145 H Potassium Level 3.6 # Chloride Level 111 H Carbon Dioxide Level 27 Anion Gap 11 Blood Urea Nitrogen 52 H Creatinine 1.38 H Glucose Level 111 # Calcium Level 8.8 Total Bilirubin 28.5 H Direct Bilirubin 25.80 *H Indirect Bilirubin 2.7 H Aspartate Amino Transf (AST/SGOT) 200 H Alanine Aminotransferase (ALT/SGPT) 77 H Alkaline Phosphatase 448 H Ammonia 25 Total Protein 6.3 Albumin 2.5 L Globulin 3.80 H Albumin/Globulin Ratio 0.65 Test 01/23/17 06:15 01/23/17 08:13 01/23/17 12:45 Bedside Glucose 113 118 134 Medications Medications Current Medications Ondansetron HCl (Zofran Inj) 4 mg Q6H PRN IV NAUSEA AND/OR VOMITING Last administered on 01/03/17 14:52; Admin Dose 4 MG; Start 01/02/17 at 23:00 Rifaximin (Xifaxan) 550 mg BID PO Last administered on 01/23/17 08:02; Admin Dose 550 MG; Start 01/04/17 at 11:00 IV Flush (NS 10 ml) 10 ml PRN PRN IV IV PROTOCOL; Start 01/05/17 at 18:30 Diagnostic Test (Pha) 1 ea 1 ea Q4 XX Last administered on 01/23/17 05:00; Admin Dose 1 EA; Start 01/06/17 at 17:00 Total Parenteral Nutrition (Tpn) 1,000 ml @ 50 mls/hr Q20H IV Last administered on 01/23/17 08:14; Admin Dose 50 MLS/HR; Start 01/09/17 at 18:00 Prednisolone (Prelone (Ped)) 40 mg DAILY PO Last administered on 01/23/17 08: 05; Admin Dose 40 MG; Start 01/12/17 at 09:00 Citric Acid/ Sodium Citrate (Bicitra) 30 ml TID NGT Last administered on 12:45; Admin Dose 30 ML; Start 01/12/17 at 09:00 Nystatin 5 ml 5 ml QID PO Last administered on 01/23/17 12:45; Admin Dose 5 ML ; Start 01/13/17 at 17:00 Dextrose (D5W) 1,000 ml @ 20 mls/hr Q24H IV Last administered on 01/22/17 11: 16; Admin Dose 20 MLS/HR; Start 01/15/17 at 18:30 Insulin Aspart (Novolog Insulin Pen) NOVOLOG *MILD* ALGORI... Q4 SC Last administered on 01/22/17 17:31; Admin Dose 1 UNIT; Start 01/15/17 at 21:00 Miscellaneous Information 1 ea NOTE XX ; Start 01/15/17 at 18:30 Glucose (Glutose) 15 gm Q15M PRN PO DECREASED GLUCOSE; Start 01/15/17 at 18:30 Glucose (Glutose) 22.5 gm Q15M PRN PO DECREASED GLUCOSE; Start 01/15/17 at 18: 30 Dextrose (D50w Syringe) 25 ml Q15M PRN IV DECREASED GLUCOSE; Start 01/15/17 at 18:30 Dextrose (D50w Syringe) 50 ml Q15M PRN IV DECREASED GLUCOSE; Start 01/15/17 at 18:30 Glucagon (Glucagen) 1 mg Q15M PRN IM DECREASED GLUCOSE; Start 01/15/17 at 18:30 Glucose (Glutose) 15 gm Q15M PRN BUCCAL DECREASED GLUCOSE; Start 01/15/17 at 18 :30 Metoclopramide HCl (Reglan) 5 mg Q6 IV Last administered on 01/23/17 12:45; Admin Dose 5 MG; Start 01/16/17 at 18:00 Pentoxifylline (Trental) 400 mg DAILY PO Last administered on 01/23/17 08:02; Admin Dose 400 MG; Start 01/18/17 at 14:00 Famotidine (Pepcid Iv) 20 mg Q12 IV Last administered on 01/22/17 21:57; Admin Dose 20 MG; Start 01/20/17 at 09:00 Diazepam (Valium) 10 mg BID PRN PO ANXIETY Last administered on 01/23/17 14:23 ; Admin Dose 10 MG; Start 01/20/17 at 11:00 Lactulose (Enulose) 20 gm BID PO Last administered on 01/23/17 08:03; Admin Dose 20 GM; Start 01/20/17 at 21:00 Lorazepam 0.5 mg 0.5 mg TID PO Last administered on 01/23/17 12:45; Admin Dose 0.5 MG; Start 01/20/17 at 21:00 Ferric Sodium Gluconate Complex/ Sodium Chloride (Ferrlecit/NS) 110 ml @ 100 mls/hr Q24H IVPB Last administered on 01/22/17 18:08; Admin Dose 100 MLS/HR; Start 01/21/17 at 18:00; Stop 01/23/17 at 19:05 Morphine Sulfate (morphine) 1 mg Q4H PRN IM PAIN; Start 01/23/17 at 10:00 Morphine Sulfate (morphine) 1 mg Q6 PRN IV pain Last administered on 01/23/17 09:52; Admin Dose 1 MG; Start 01/23/17 at 10:00 NERI MCKEON Jan 23, 2017 15:03
--- NOTE | 2017-01-23 16:28 | CONS ---
Date/Time of Note Date/Time of Note DATE: 01/23/17 TIME: 16:13 Consultation Date/Type/Reason Admit Date/Time Jan 02, 2017 at 19:30 Initial Consult Date Chief Complaint/Hosp Course SUBJECTIVE: No acute events overnight. Awake,looks comfortable. No fevers. Altered mental status, confused. VS: 132/71 P: 90 R: 18 T: 97.5 SO2: 94% LABS: reviewed. WBC went up. 41.9 H&H: 9.0/27.1 CXR 01/23/17 IMPRESSION: 1. Nasogastric tube removed. 2. Worse appearance of the lung bases. 3. Otherwise unremarkable study. INDWELLINGS: [place], PICC line. ANTIMICROBIALS: none PHYSICAL EXAMINATION: GENERAL: This is an ill-appearing, middle-aged, man who is obtunded and in no distress. HEENT: Head atraumatic, normocephalic. Sclerae icteric. Buccal mucosa dry. NECK: Supple. CHEST: Rise symmetrical. Breath sounds diminished to bases. HEART: S1, S2. ABDOMEN: Soft with guarding on palpation. Bowel tones present. EXTREMITIES: With trace edema. ASSESSMENT: 1. S/p sepsis 2. Acute pancreatitis. 3. Decompensated liver cirrhosis. 4. Ascites, status post paracentesis==> cx negative. 5. Status post respiratory failure, patient is extubated. 6. Acute hepatic encephalopathy. 7. Acute kidney injury with kidney function improving. 8. Persistent leukocytosis secondary to sepsis and also steroid induced. 9. Ethyl alcohol dependency abuse. PLAN: The patient remains stable. Off of antbx., Continue present care, aspiration precautions. WBC is elevated secondary to steroid treatment. Will obtain another BC. Monitor labs tomorrow. Type of Consultation: ID Referring Provider: BRAEDEN LUNSFORD MD Exam/Review of Systems Vital Signs Vitals Vital Signs Date Time Temp Pulse Resp B/P Pulse Ox O2 Delivery O2 Flow Rate FiO2 01/23/17 14:00 97.5 90 18 132/71 94 01/19/17 16:00 Room Air Intake and Output 01/22/17 01/22/17 01/23/17 15:00 23:00 07:00 Intake Total 910 ml 910 ml 1040 ml Output Total 650 ml 1400 ml Balance 910 ml 260 ml -360 ml Results Result Diagram: 01/23/17 0459 01/23/17 0459 Results 24 hrs Laboratory Tests Test 01/22/17 17:26 01/22/17 22:12 01/23/17 00:43 01/23/17 04:59 Bedside Glucose 162 131 131 White Blood Count 41.9 #H Red Blood Count 2.52 L Hemoglobin 9.0 L Hematocrit 27.1 L Mean Corpuscular Volume 107.5 H Mean Corpuscular Hemoglobin 35.7 H Mean Corpuscular Hemoglobin Concent 33.2 Red Cell Distribution Width 24.5 H Platelet Count 109 L Mean Platelet Volume 13.5 H Neutrophils % Segmented Neutrophils % (Manual) 78 H Band Neutrophils % (Manual) 4 Lymphocytes % Lymphocytes % (Manual) 4 L Monocytes % Monocytes % (Manual) 11 Eosinophils % Basophils % Metamyelocytes % (manual) 1 H Myelocytes % (Manual) 2 H Nucleated Red Blood Cells % 1 H Neutrophils # Neutrophils # (Manual) 33.4 H Band Neutrophils # 1.6 H Absolute Lymphocytes (Manual) 1.6 Lymphocytes # Monocytes # Absolute Monocytes (Manual) 4.6 H Eosinophils # Basophils # Metamyelocytes # 0.4 H Myelocytes # 0.8 H Nucleated Red Blood Cells # Platelet Estimate DECREASED Polychromasia 3+ Hypochromasia 1+ Poikilocytosis 3+ Anisocytosis 3+ Macrocytosis 3+ Prothrombin Time 24.3 H Prothrombin Time Ratio 1.9 INR International Normalized Ratio 2.16 Sodium Level 145 H Potassium Level 3.6 # Chloride Level 111 H Carbon Dioxide Level 27 Anion Gap 11 Blood Urea Nitrogen 52 H Creatinine 1.38 H Glucose Level 111 # Calcium Level 8.8 Total Bilirubin 28.5 H Direct Bilirubin 25.80 *H Indirect Bilirubin 2.7 H Aspartate Amino Transf (AST/SGOT) 200 H Alanine Aminotransferase (ALT/SGPT) 77 H Alkaline Phosphatase 448 H Ammonia 25 Total Protein 6.3 Albumin 2.5 L Globulin 3.80 H Albumin/Globulin Ratio 0.65 Test 01/23/17 06:15 01/23/17 08:13 01/23/17 12:45 Bedside Glucose 113 118 134 Medications Medications Current Medications Ondansetron HCl (Zofran Inj) 4 mg Q6H PRN IV NAUSEA AND/OR VOMITING Last administered on 01/03/17t 14:52; Admin Dose 4 MG; Start 01/02/17 at 23:00 Rifaximin (Xifaxan) 550 mg BID PO Last administered on 01/23/17 08:02; Admin Dose 550 MG; Start 01/04/17 at 11:00 IV Flush (NS 10 ml) 10 ml PRN PRN IV IV PROTOCOL; Start 01/05/17 at 18:30 Diagnostic Test (Pha) 1 ea 1 ea Q4 XX Last administered on 01/23/17 05:00; Admin Dose 1 EA; Start 01/06/17 at 17:00 Total Parenteral Nutrition (Tpn) 1,000 ml @ 50 mls/hr Q20H IV Last administered on 01/23/17 08:14; Admin Dose 50 MLS/HR; Start 01/09/17 at 18:00 Prednisolone (Prelone (Ped)) 40 mg DAILY PO Last administered on 01/23/17 08: 05; Admin Dose 40 MG; Start 01/12/17 at 09:00 Citric Acid/ Sodium Citrate (Bicitra) 30 ml TID NGT Last administered on 12:45; Admin Dose 30 ML; Start 01/12/17 at 09:00 Nystatin 5 ml 5 ml QID PO Last administered on 01/23/17 12:45; Admin Dose 5 ML ; Start 01/13/17 at 17:00 Dextrose (D5W) 1,000 ml @ 20 mls/hr Q24H IV Last administered on 01/22/17 11: 16; Admin Dose 20 MLS/HR; Start 01/15/17 at 18:30 Insulin Aspart (Novolog Insulin Pen) NOVOLOG *MILD* ALGORI... Q4 SC Last administered on 01/22/17 17:31; Admin Dose 1 UNIT; Start 01/15/17 at 21:00 Miscellaneous Information 1 ea NOTE XX ; Start 01/15/17 at 18:30 Glucose (Glutose) 15 gm Q15M PRN PO DECREASED GLUCOSE; Start 01/15/17 at 18:30 Glucose (Glutose) 22.5 gm Q15M PRN PO DECREASED GLUCOSE; Start 01/15/17 at 18: 30 Dextrose (D50w Syringe) 25 ml Q15M PRN IV DECREASED GLUCOSE; Start 01/15/17 at 18:30 Dextrose (D50w Syringe) 50 ml Q15M PRN IV DECREASED GLUCOSE; Start 01/15/17 at 18:30 Glucagon (Glucagen) 1 mg Q15M PRN IM DECREASED GLUCOSE; Start 01/15/17 at 18:30 Glucose (Glutose) 15 gm Q15M PRN BUCCAL DECREASED GLUCOSE; Start 01/15/17 at 18 :30 Metoclopramide HCl (Reglan) 5 mg Q6 IV Last administered on 01/23/17 12:45; Admin Dose 5 MG; Start 01/16/17 at 18:00 Pentoxifylline (Trental) 400 mg DAILY PO Last administered on 01/23/17 08:02; Admin Dose 400 MG; Start 01/18/17 at 14:00 Famotidine (Pepcid Iv) 20 mg Q12 IV Last administered on 01/22/17 21:57; Admin Dose 20 MG; Start 01/20/17 at 09:00 Diazepam (Valium) 10 mg BID PRN PO ANXIETY Last administered on 01/23/17 14:23 ; Admin Dose 10 MG; Start 01/20/17 at 11:00 Lactulose (Enulose) 20 gm BID PO Last administered on 01/23/17 08:03; Admin Dose 20 GM; Start 01/20/17 at 21:00 Lorazepam 0.5 mg 0.5 mg TID PO Last administered on 01/23/17 12:45; Admin Dose 0.5 MG; Start 01/20/17 at 21:00 Ferric Sodium Gluconate Complex/ Sodium Chloride (Ferrlecit/NS) 110 ml @ 100 mls/hr Q24H IVPB Last administered on 01/22/17 18:08; Admin Dose 100 MLS/HR; Start 01/21/17 at 18:00; Stop 01/23/17 at 19:05 Morphine Sulfate (morphine) 1 mg Q4H PRN IM PAIN; Start 01/23/17 at 10:00 Morphine Sulfate (morphine) 1 mg Q6 PRN IV pain Last administered on 01/23/17 09:52; Admin Dose 1 MG; Start 01/23/17 at 10:00 JUAREZ JORDAN Jan 23, 2017 16:27
--- NOTE | 2017-01-23 16:59 | CONS ---
Date/Time of Note Date/Time of Note DATE: 01/23/17 TIME: 16:57 Assessment/Plan Assessment/Plan Additional Assessment/Plan IMPRESSION: 1. Delirium tremens. Resolved 2. Hepatic encephalopathy. Better patient is now communicating with slurred speech 3. Alcoholic liver disease. Patient is on prednisolone 4. Pancreatitis. Amylase has come down . Lipase is down 5. Leukocytosis. Persistent most probably related to alcoholic hepatitis 6. Renal insufficiency. Though the urine output is good. Renal function has improved a lot with good urine output. Creatinine is coming down. Now it is 1.6 7. Pedal edema and ascites, reducing 8. Thrombocytopenia better 9. Ileus, small bowel follow-through was negative 10. Patient's gastroparesis might be related to uremia better 11. Hypernatremia Plan 1. Continue prednisolone 2. Your liquid diet, advance to solid diet, aspiration precaution 3. Patient is confused at times but more oriented than before 4. Reduce IV fluid since patient is third spacing, may need albumin. 5. Octreotide discontinued 6. We will monitor WBC, INR, total bilirubin, and creatinine on a regular basis 7. I had [id number] discussion with the mother and the family members and also with the health care administrator and heating and cooling systems engineer. 8. And is on pentoxifylline 400 mg once a day 10. Please avoid narcotics and also Ativan patient confusional state is secondary to hepatic encephalopathy 11. Abdominal paracentesis again 12. Physical therapy and discontinue Ativan, patient is unable to stand on his own for a long time. He needs physical therapist support and also a walker to hold on 13. Patient started on pentoxifylline 14. May discontinue Intralipid Consultation Date/Type/Reason Admit Date/Time Jan 02, 2017 at 19:30 Type of Consultation: ID Referring Provider: BRAEDEN LUNSFORD MD 24 HR Interval Summary Free Text/Dictation Patient more awake and oriented. Eating much better Exam/Review of Systems Vital Signs Vitals Vital Signs Date Time Temp Pulse Resp B/P Pulse Ox O2 Delivery O2 Flow Rate FiO2 01/23/17 14:00 97.5 90 18 132/71 94 01/19/17 16:00 Room Air Intake and Output 01/22/17 01/22/17 01/23/17 15:00 23:00 07:00 Intake Total 910 ml 910 ml 1040 ml Output Total 650 ml 1400 ml Balance 910 ml 260 ml -360 ml Exam Constitutional: alert, oriented, well developed Psych: nl mood/affect, no complaints Head: atraumatic, normocephalic Eyes: EOMI, PERRL, nl conjunctiva, nl lids, nl sclera ENMT: nl external ears & nose, nl lips & teeth, nl nasal mucosa & septum Neck: non-tender, supple Respiratory: clear to auscultation, normal air movement Cardiovascular: nl pulses, regular rate and rhythm Gastrointestinal: nl liver, spleen, non-tender, soft Musculoskeletal: nl extremities to inspection, nl gait and stance Extremities: normal pulses Neurological: ROAD CUTTER II-XII intact, nl mental status, nl speech, nl strength Skin: nl turgor, No rash or lesions Lymph: nl lymph nodes Results Result Diagram: 01/23/17 0459 01/23/17 0459 Results 24 hrs Laboratory Tests Test 01/22/17 17:26 01/22/17 22:12 01/23/17 00:43 01/23/17 04:59 Bedside Glucose 162 131 131 White Blood Count 41.9 #H Red Blood Count 2.52 L Hemoglobin 9.0 L Hematocrit 27.1 L Mean Corpuscular Volume 107.5 H Mean Corpuscular Hemoglobin 35.7 H Mean Corpuscular Hemoglobin Concent 33.2 Red Cell Distribution Width 24.5 H Platelet Count 109 L Mean Platelet Volume 13.5 H Neutrophils % Segmented Neutrophils % (Manual) 78 H Band Neutrophils % (Manual) 4 Lymphocytes % Lymphocytes % (Manual) 4 L Monocytes % Monocytes % (Manual) 11 Eosinophils % Basophils % Metamyelocytes % (manual) 1 H Myelocytes % (Manual) 2 H Nucleated Red Blood Cells % 1 H Neutrophils # Neutrophils # (Manual) 33.4 H Band Neutrophils # 1.6 H Absolute Lymphocytes (Manual) 1.6 Lymphocytes # Monocytes # Absolute Monocytes (Manual) 4.6 H Eosinophils # Basophils # Metamyelocytes # 0.4 H Myelocytes # 0.8 H Nucleated Red Blood Cells # Platelet Estimate DECREASED Polychromasia 3+ Hypochromasia 1+ Poikilocytosis 3+ Anisocytosis 3+ Macrocytosis 3+ Prothrombin Time 24.3 H Prothrombin Time Ratio 1.9 INR International Normalized Ratio 2.16 Sodium Level 145 H Potassium Level 3.6 # Chloride Level 111 H Carbon Dioxide Level 27 Anion Gap 11 Blood Urea Nitrogen 52 H Creatinine 1.38 H Glucose Level 111 # Calcium Level 8.8 Total Bilirubin 28.5 H Direct Bilirubin 25.80 *H Indirect Bilirubin 2.7 H Aspartate Amino Transf (AST/SGOT) 200 H Alanine Aminotransferase (ALT/SGPT) 77 H Alkaline Phosphatase 448 H Ammonia 25 Total Protein 6.3 Albumin 2.5 L Globulin 3.80 H Albumin/Globulin Ratio 0.65 Test 01/23/17 06:15 01/23/17 08:13 01/23/17 12:45 Bedside Glucose 113 118 134 Medications Medications Current Medications Ondansetron HCl (Zofran Inj) 4 mg Q6H PRN IV NAUSEA AND/OR VOMITING Last administered on 01/03/17 14:52; Admin Dose 4 MG; Start 01/02/17 at 23:00 Rifaximin (Xifaxan) 550 mg BID PO Last administered on 01/23/17 08:02; Admin Dose 550 MG; Start 01/04/17 at 11:00 IV Flush (NS 10 ml) 10 ml PRN PRN IV IV PROTOCOL; Start 01/05/17 at 18:30 Diagnostic Test (Pha) 1 ea 1 ea Q4 XX Last administered on 01/23/17 05:00; Admin Dose 1 EA; Start 01/06/17 at 17:00 Total Parenteral Nutrition (Tpn) 1,000 ml @ 50 mls/hr Q20H IV Last administered on 01/23/17 08:14; Admin Dose 50 MLS/HR; Start 01/09/17 at 18:00 Prednisolone (Prelone (Ped)) 40 mg DAILY PO Last administered on 01/23/17 08: 05; Admin Dose 40 MG; Start 01/12/17 at 09:00 Citric Acid/ Sodium Citrate (Bicitra) 30 ml TID NGT Last administered on 12:45; Admin Dose 30 ML; Start 01/12/17 at 09:00 Nystatin 5 ml 5 ml QID PO Last administered on 01/23/17 12:45; Admin Dose 5 ML ; Start 01/13/17 at 17:00 Dextrose (D5W) 1,000 ml @ 20 mls/hr Q24H IV Last administered on 01/22/17 11: 16; Admin Dose 20 MLS/HR; Start 01/15/17 at 18:30 Insulin Aspart (Novolog Insulin Pen) NOVOLOG *MILD* ALGORI... Q4 SC Last administered on 01/22/17 17:31; Admin Dose 1 UNIT; Start 01/15/17 at 21:00 Miscellaneous Information 1 ea NOTE XX ; Start 01/15/17 at 18:30 Glucose (Glutose) 15 gm Q15M PRN PO DECREASED GLUCOSE; Start 01/15/17 at 18:30 Glucose (Glutose) 22.5 gm Q15M PRN PO DECREASED GLUCOSE; Start 01/15/17 at 18: 30 Dextrose (D50w Syringe) 25 ml Q15M PRN IV DECREASED GLUCOSE; Start 01/15/17 at 18:30 Dextrose (D50w Syringe) 50 ml Q15M PRN IV DECREASED GLUCOSE; Start 01/15/17 at 18:30 Glucagon (Glucagen) 1 mg Q15M PRN IM DECREASED GLUCOSE; Start 01/15/17 at 18:30 Glucose (Glutose) 15 gm Q15M PRN BUCCAL DECREASED GLUCOSE; Start 01/15/17 at 18 :30 Metoclopramide HCl (Reglan) 5 mg Q6 IV Last administered on 01/23/17 12:45; Admin Dose 5 MG; Start 01/16/17 at 18:00 Pentoxifylline (Trental) 400 mg DAILY PO Last administered on 01/23/17 08:02; Admin Dose 400 MG; Start 01/18/17 at 14:00 Famotidine (Pepcid Iv) 20 mg Q12 IV Last administered on 01/22/17 21:57; Admin Dose 20 MG; Start 01/20/17 at 09:00 Diazepam (Valium) 10 mg BID PRN PO ANXIETY Last administered on 01/23/17 14:23 ; Admin Dose 10 MG; Start 01/20/17 at 11:00 Lactulose (Enulose) 20 gm BID PO Last administered on 01/23/17 08:03; Admin Dose 20 GM; Start 01/20/17 at 21:00 Lorazepam 0.5 mg 0.5 mg TID PO Last administered on 01/23/17 12:45; Admin Dose 0.5 MG; Start 01/20/17 at 21:00 Ferric Sodium Gluconate Complex/ Sodium Chloride (Ferrlecit/NS) 110 ml @ 100 mls/hr Q24H IVPB Last administered on 01/22/17 18:08; Admin Dose 100 MLS/HR; Start 01/21/17 at 18:00; Stop 01/23/17 at 19:05 Morphine Sulfate (morphine) 1 mg Q4H PRN IM PAIN; Start 01/23/17 at 10:00 Morphine Sulfate (morphine) 1 mg Q6 PRN IV pain Last administered on 01/23/17 09:52; Admin Dose 1 MG; Start 01/23/17 at 10:00 LAURA CORDERO MD Jan 23, 2017 16:59
[2017-01-23] MEDS: DEXTROSE 5% 1,000 ML IV SCH (17:40)
[2017-01-23] MEDS: SOD FERRIC GLUC COMPLX 125 MG in SOD CHLORIDE 0.9% 100 ML IVPB SCH (17:40)
[2017-01-23 19:33] VITALS: BP 148/78; RESP 18
--- NOTE | 2017-01-23 20:56 | PN ---
Date/Time of Note Date/Time of Note DATE: 01/23/17 TIME: 20:55 Assessment/Plan VTE Prophylaxis VTE Prophylaxis Intervention: other Lines/Catheters IV Catheter Type (from Nrs): PICC Line Central line still needed: Yes Urinary Cath still in place: Yes Reason Cath still needed: other (indicate) Assessment/Plan Chief Complaint/Hosp Course # Acute on chronic liver failure likely Etoh abuse with elevated INR, Hyperbilirubenemia, low platelets, # Hepatic encephalopathy # ETOH withdrawal S/P # ETOH pancreatitis # Non Gap Acidosis likely combination of renal failure and diarrhoea # Leukocytosis could be pancreatitis vs Alcholic hepatitis # Hypoxic Respiratory failure s/p extubated on 01/15 # Thrombocytopenia # Anemia # s/P EGD with gastritis # Ileus s/p Small bowel follow thru which is negative, PLAN TPN CK LABS albumin iv fluid NEED REHAB PT OT Problems: Subjective 24 Hr Interval Summary Respiratory: no complaints Gastrointestinal: no complaints Neurologic: confusion (+) Exam/Review of Systems Vital Signs Vitals Vital Signs Date Time Temp Pulse Resp B/P Pulse Ox O2 Delivery O2 Flow Rate FiO2 01/23/17 19:33 97.3 85 18 148/78 96 01/19/17 16:00 Room Air Intake and Output 01/22/17 01/22/17 01/23/17 15:00 23:00 07:00 Intake Total 910 ml 910 ml 1040 ml Output Total 650 ml 1400 ml Balance 910 ml 260 ml -360 ml Exam Neck: supple Respiratory: clear to auscultation, normal air movement Cardiovascular: nl pulses, regular rate and rhythm Gastrointestinal: nl liver, spleen, non-tender, soft Extremities: No edema Results Result Diagram: 01/23/17 0459 01/23/17 0459 Results 24 hrs Laboratory Tests Test 01/22/17 22:12 01/23/17 00:43 01/23/17 04:59 01/23/17 06:15 Bedside Glucose 131 131 113 White Blood Count 41.9 #H Red Blood Count 2.52 L Hemoglobin 9.0 L Hematocrit 27.1 L Mean Corpuscular Volume 107.5 H Mean Corpuscular Hemoglobin 35.7 H Mean Corpuscular Hemoglobin Concent 33.2 Red Cell Distribution Width 24.5 H Platelet Count 109 L Mean Platelet Volume 13.5 H Neutrophils % Segmented Neutrophils % (Manual) 78 H Band Neutrophils % (Manual) 4 Lymphocytes % Lymphocytes % (Manual) 4 L Monocytes % Monocytes % (Manual) 11 Eosinophils % Basophils % Metamyelocytes % (manual) 1 H Myelocytes % (Manual) 2 H Nucleated Red Blood Cells % 1 H Neutrophils # Neutrophils # (Manual) 33.4 H Band Neutrophils # 1.6 H Absolute Lymphocytes (Manual) 1.6 Lymphocytes # Monocytes # Absolute Monocytes (Manual) 4.6 H Eosinophils # Basophils # Metamyelocytes # 0.4 H Myelocytes # 0.8 H Nucleated Red Blood Cells # Platelet Estimate DECREASED Polychromasia 3+ Hypochromasia 1+ Poikilocytosis 3+ Anisocytosis 3+ Macrocytosis 3+ Prothrombin Time 24.3 H Prothrombin Time Ratio 1.9 INR International Normalized Ratio 2.16 Sodium Level 145 H Potassium Level 3.6 # Chloride Level 111 H Carbon Dioxide Level 27 Anion Gap 11 Blood Urea Nitrogen 52 H Creatinine 1.38 H Glucose Level 111 # Calcium Level 8.8 Total Bilirubin 28.5 H Direct Bilirubin 25.80 *H Indirect Bilirubin 2.7 H Aspartate Amino Transf (AST/SGOT) 200 H Alanine Aminotransferase (ALT/SGPT) 77 H Alkaline Phosphatase 448 H Ammonia 25 Total Protein 6.3 Albumin 2.5 L Globulin 3.80 H Albumin/Globulin Ratio 0.65 Test 01/23/17 08:13 01/23/17 12:45 01/23/17 17:41 Bedside Glucose 118 134 165 Medications Medications Current Medications Ondansetron HCl (Zofran Inj) 4 mg Q6H PRN IV NAUSEA AND/OR VOMITING Last administered on 01/03/17 14:52; Admin Dose 4 MG; Start 01/02/17 at 23:00 Rifaximin (Xifaxan) 550 mg BID PO Last administered on 01/23/17 20:31; Admin Dose 550 MG; Start 01/04/17 at 11:00 IV Flush (NS 10 ml) 10 ml PRN PRN IV IV PROTOCOL; Start 01/05/17 at 18:30 Diagnostic Test (Pha) 1 ea 1 ea Q4 XX Last administered on 01/23/17 05:00; Admin Dose 1 EA; Start 01/06/17 at 17:00 Total Parenteral Nutrition (Tpn) 1,000 ml @ 50 mls/hr Q20H IV Last administered on 01/23/17 08:14; Admin Dose 50 MLS/HR; Start 01/09/17 at 18:00 Prednisolone (Prelone (Ped)) 40 mg DAILY PO Last administered on 01/23/17 08: 05; Admin Dose 40 MG; Start 01/12/17 at 09:00 Citric Acid/ Sodium Citrate (Bicitra) 30 ml TID NGT Last administered on 20:31; Admin Dose 30 ML; Start 01/12/17 at 09:00 Nystatin 5 ml 5 ml QID PO Last administered on 01/23/17 20:31; Admin Dose 5 ML ; Start 01/13/17 at 17:00 Dextrose (D5W) 1,000 ml @ 20 mls/hr Q24H IV Last administered on 01/22/17 11: 16; Admin Dose 20 MLS/HR; Start 01/15/17 at 18:30 Insulin Aspart (Novolog Insulin Pen) NOVOLOG *MILD* ALGORI... Q4 SC Last administered on 01/23/17 20:50; Admin Dose 1 UNIT; Start 01/15/17 at 21:00 Miscellaneous Information 1 ea NOTE XX ; Start 01/15/17 at 18:30 Glucose (Glutose) 15 gm Q15M PRN PO DECREASED GLUCOSE; Start 01/15/17 at 18:30 Glucose (Glutose) 22.5 gm Q15M PRN PO DECREASED GLUCOSE; Start 01/15/17 at 18: 30 Dextrose (D50w Syringe) 25 ml Q15M PRN IV DECREASED GLUCOSE; Start 01/15/17 at 18:30 Dextrose (D50w Syringe) 50 ml Q15M PRN IV DECREASED GLUCOSE; Start 01/15/17 at 18:30 Glucagon (Glucagen) 1 mg Q15M PRN IM DECREASED GLUCOSE; Start 01/15/17 at 18:30 Glucose (Glutose) 15 gm Q15M PRN BUCCAL DECREASED GLUCOSE; Start 01/15/17 at 18 :30 Metoclopramide HCl (Reglan) 5 mg Q6 IV Last administered on 01/23/17 17:40; Admin Dose 5 MG; Start 01/16/17 at 18:00 Pentoxifylline (Trental) 400 mg DAILY PO Last administered on 01/23/17 08:02; Admin Dose 400 MG; Start 01/18/17 at 14:00 Famotidine (Pepcid Iv) 20 mg Q12 IV Last administered on 01/23/17 20:31; Admin Dose 20 MG; Start 01/20/17 at 09:00 Diazepam (Valium) 10 mg BID PRN PO ANXIETY Last administered on 01/23/17 14:23 ; Admin Dose 10 MG; Start 01/20/17 at 11:00 Lactulose (Enulose) 20 gm BID PO Last administered on 01/23/17 20:31; Admin Dose 20 GM; Start 01/20/17 at 21:00 Lorazepam (Ativan) 0.5 mg TID PO Last administered on 01/23/17 20:32; Admin Dose 0.5 MG; Start 01/20/17 at 21:00 Morphine Sulfate (morphine) 1 mg Q4H PRN IM PAIN; Start 01/23/17 at 10:00 Morphine Sulfate (morphine) 1 mg Q6 PRN IV pain Last administered on 01/23/17 09:52; Admin Dose 1 MG; Start 01/23/17 at 10:00 JAYME BANSAL MD Jan 23, 2017 20:56
[2017-01-24] MEDS: ACCU-CHEK XX SCH ×6 (01:00→21:00)
[2017-01-24] MEDS: INSULIN ASPART [NOVOLOG] 3 ML PEN SC SCH ×6 (01:00→21:00)
[2017-01-24 02:48] VITALS: BP 132/64; RESP 18
[2017-01-24] MEDS: TPN 1,000 ML IV SCH ×2 (04:54→06:00)
[2017-01-24] MEDS: METOCLOPRAMIDE 10 MG INJ IV SCH ×2 (06:14→20:41)
[2017-01-24 06:24] LABS: ABNORMAL IP MESSAGE 1; HEMATOCRIT 26.8 % (42.0-52.0); HEMOGLOBIN 8.7 g/dl (14.0-18.0); MEAN CORPUSCULAR HEMOGLOBIN 34.8 pg (29.0-33.0); MEAN CORPUSCULAR HGB CONC 32.5 g/dl (32.0-37.0); MEAN CORPUSCULAR VOLUME 107.2 fl (82.0-101.0); MEAN PLATELET VOLUME 13.5 fl (7.4-10.4); NUCLEATED RED BLOOD CELLS% 0.2 /100WBC (0.0-0.0); PLATELET COUNT 100 10^3/UL (140-415); POSITIVE DIFF @See below; RED CELL DISTRIBUTION WIDTH 24.9 % (11.5-14.5)
[2017-01-24 06:30] LABS: BASOPHIL # 0.1 10^3/ul (0.0-0.1); BASOPHILS % 0.2 % (0.0-2.0); LYMPHOCYTES # 1.1 10^3/ul (0.8-2.9); LYMPHOCYTES % 2.6 % (15.0-51.0); MONOCYTE # 2.6 10^3/ul (0.3-0.9); MONOCYTES % 5.9 % (0.0-11.0); NEUTROPHIL # 37.5 10^3/ul (1.6-7.5); NUCLEATED RED BLOOD CELLS # 0.1 10^3/ul (0.0-0.0)
[2017-01-24 06:51] LABS: ALBUMIN 2.6 g/dl (3.3-4.9); ALBUMIN/GLOBULIN RATIO 0.72; BILIRUBIN,INDIRECT 2.7 mg/dl (0-1.1); CALCIUM 8.6 mg/dl (8.4-10.2); CREATININE 1.54 mg/dl (0.61-1.24); POTASSIUM 3.6 mmol/L (3.5-5.1); TOTAL PROTEIN 6.2 g/dl (6.1-8.1)
[2017-01-24 07:01] LABS: BILIRUBIN,DIRECT 25.2 mg/dl (0.00-0.20); BILIRUBIN,TOTAL 27.9 mg/dl (0.2-1.3)
[2017-01-24] MEDS: PENTOXIFYLLINE (SR) 400 MG TAB PO SCH (08:23)
[2017-01-24] MEDS: LORAZEPAM 0.5 MG TAB PO SCH ×3 (08:23→20:40)
[2017-01-24] MEDS: NYSTATIN SUSP 5 ML CUP PO SCH ×4 (08:24→20:41)
[2017-01-24] MEDS: RIFAXIMIN 550 MG TAB PO SCH ×2 (08:24→20:43)
[2017-01-24] MEDS: CITRIC ACID/NA CITRATE 30 ML CUP NGT SCH ×3 (08:24→20:42)
[2017-01-24] MEDS: LACTULOSE 30ML CUP PO SCH ×2 (08:24→20:42)
[2017-01-24] MEDS: FAMOTIDINE 20 MG INJ IV SCH ×2 (08:25→20:41)
[2017-01-24] MEDS: BALSAM PERU/CASTOR OIL 60 GM TUBE TOP SCH ×2 (08:25→21:00)
[2017-01-24] MEDS: predniSOLONE (3 MG/ML PO SYG) PO SCH (08:25)
[2017-01-24 08:31] VITALS: BP 142/71; RESP 19
[2017-01-24] MEDS: morphine 2 MG INJ IV PRN ×2 (10:08→23:18)
[2017-01-24] MEDS ORDERED: BARIUM SULF 2% 450 ML BTL (BERRY SMOOTHIE) PO ONE ×2 (10:30→14:30)
[2017-01-24 10:31] LABS: ANISOCYTOSIS 1+ (0-0); BURR CELLS 2+ (0-0); MONOCYTES % (M) 6 % (0-11); PLATELET ESTIMATE DECREASED; POIKILOCYTOSIS 1+ (0-0); POLYCHROMASIA 1+ (0-0); TARGET CELLS 2+ (0-0)
--- NOTE | 2017-01-24 10:36 | CONS ---
Date/Time of Note Date/Time of Note DATE: 01/24/17 TIME: 10:34 Assessment/Plan Assessment/Plan Additional Assessment/Plan IMPRESSION: 1. Delirium tremens patient is still shaky unable to stand on his feet and continues to have slurred speech 2. Hepatic encephalopathy. Better patient is now communicating with slurred speech 3. Alcoholic liver disease. Patient is on prednisolone 4. Pancreatitis. Amylase has come down . Lipase is down 5. Leukocytosis. Persistent most probably related to alcoholic hepatitis and steroid 6. Renal insufficiency. Though the urine output is good. Renal function has improved a lot with good urine output. Creatinine is coming down. Now it is 1.6 7. Pedal edema resolved 8. Thrombocytopenia better 9. Ileus, small bowel follow-through was negative 10. Patient's gastroparesis might be related to uremia better 11. Hypernatremia Plan 1. Continue prednisolone 2. Your liquid diet, advance to solid diet, aspiration precaution 3. Patient is confused at times but more oriented than before 4. Reduce IV fluid since patient is third spacing, may need albumin. 5. Octreotide discontinued 6. We will monitor WBC, INR, total bilirubin, and creatinine on a regular basis 7. I had [id number] discussion with the mother and the family members and also with the fusing machine tender and bullet swaging machine operator. 8. And is on pentoxifylline 400 mg once a day 10. Please avoid narcotics and also Ativan patient confusional state is secondary to hepatic encephalopathy 11. Abdominal paracentesis again 12. Physical therapy and discontinue Ativan, patient is unable to stand on his own for a long time. He needs physical therapist support and also a walker to hold on 13. Patient started on pentoxifylline 14. Discontinue Reglan Consultation Date/Type/Reason Admit Date/Time Jan 02, 2017 at 19:30 Type of Consultation: ID Referring Provider: BRAEDEN LUNSFORD MD 24 HR Interval Summary Free Text/Dictation Continues to have slurred speech and confusion. Exam/Review of Systems Vital Signs Vitals Vital Signs Date Time Temp Pulse Resp B/P Pulse Ox O2 Delivery O2 Flow Rate FiO2 01/24/17 08:31 98.1 84 19 142/71 95 Intake and Output 01/23/17 01/23/17 01/24/17 15:00 23:00 07:00 Intake Total 300 ml 690 ml 790 ml Output Total 1050 ml Balance 300 ml 690 ml -260 ml Results Result Diagram: 01/24/17 0602 01/24/17 0602 Results 24 hrs Laboratory Tests Test 01/23/17 12:45 01/23/17 17:41 01/23/17 20:46 01/24/17 01:10 Bedside Glucose 134 165 163 118 Test 01/24/17 05:28 01/24/17 06:02 01/24/17 08:21 Bedside Glucose 112 107 White Blood Count 43.0 H Red Blood Count 2.50 L Hemoglobin 8.7 L Hematocrit 26.8 L Mean Corpuscular Volume 107.2 H Mean Corpuscular Hemoglobin 34.8 H Mean Corpuscular Hemoglobin Concent 32.5 Red Cell Distribution Width 24.9 H Platelet Count 100 L Mean Platelet Volume 13.5 H Neutrophils % 87.0 H Segmented Neutrophils % (Manual) 91 H Lymphocytes % 2.6 L Lymphocytes % (Manual) 3 L Monocytes % 5.9 Monocytes % (Manual) 6 Eosinophils % 0.0 Basophils % 0.2 Nucleated Red Blood Cells % 0.2 H Neutrophils # 37.5 H Absolute Lymphocytes (Manual) 1.2 Lymphocytes # 1.1 Monocytes # 2.6 H Absolute Monocytes (Manual) 2.5 H Eosinophils # 0.0 Basophils # 0.1 Nucleated Red Blood Cells # 0.1 H Platelet Estimate DECREASED Polychromasia 1+ Poikilocytosis 1+ Anisocytosis 1+ Macrocytosis 1+ Target Cells 2+ Sodium Level 147 H Potassium Level 3.6 Chloride Level 112 H Carbon Dioxide Level 27 Anion Gap 12 Blood Urea Nitrogen 49 H Creatinine 1.54 H Glucose Level 104 Calcium Level 8.6 Total Bilirubin 27.9 H Direct Bilirubin 25.20 *H Indirect Bilirubin 2.7 H Aspartate Amino Transf (AST/SGOT) 156 H Alanine Aminotransferase (ALT/SGPT) 73 H Alkaline Phosphatase 465 H Total Protein 6.2 Albumin 2.6 L Globulin 3.60 H Albumin/Globulin Ratio 0.72 Medications Medications Current Medications Ondansetron HCl (Zofran Inj) 4 mg Q6H PRN IV NAUSEA AND/OR VOMITING Last administered on 01/03/17 14:52; Admin Dose 4 MG; Start 01/02/17 at 23:00 Rifaximin (Xifaxan) 550 mg BID PO Last administered on 01/24/17 08:24; Admin Dose 550 MG; Start 01/04/17 at 11:00 IV Flush (NS 10 ml) 10 ml PRN PRN IV IV PROTOCOL; Start 01/05/17 at 18:30 Diagnostic Test (Pha) 1 ea 1 ea Q4 XX Last administered on 01/23/17 05:00; Admin Dose 1 EA; Start 01/06/17 at 17:00 Total Parenteral Nutrition (Tpn) 1,000 ml @ 50 mls/hr Q20H IV Last administered on 01/24/17 04:54; Admin Dose 50 MLS/HR; Start 01/09/17 at 18:00 Prednisolone (Prelone (Ped)) 40 mg DAILY PO Last administered on 01/24/17 08: 25; Admin Dose 40 MG; Start 01/12/17 at 09:00 Citric Acid/ Sodium Citrate (Bicitra) 30 ml TID NGT Last administered on 08:24; Admin Dose 30 ML; Start 01/12/17 at 09:00 Nystatin 5 ml 5 ml QID PO Last administered on 01/24/17 08:24; Admin Dose 5 ML; Start 01/13/17 at 17:00 Dextrose (D5W) 1,000 ml @ 20 mls/hr Q24H IV Last administered on 01/22/17 11: 16; Admin Dose 20 MLS/HR; Start 01/15/17 at 18:30 Insulin Aspart (Novolog Insulin Pen) NOVOLOG *MILD* ALGORI... Q4 SC Last administered on 01/23/17 20:50; Admin Dose 1 UNIT; Start 01/15/17 at 21:00 Miscellaneous Information 1 ea NOTE XX ; Start 01/15/17 at 18:30 Glucose (Glutose) 15 gm Q15M PRN PO DECREASED GLUCOSE; Start 01/15/17 at 18:30 Glucose (Glutose) 22.5 gm Q15M PRN PO DECREASED GLUCOSE; Start 01/15/17 at 18: 30 Dextrose (D50w Syringe) 25 ml Q15M PRN IV DECREASED GLUCOSE; Start 01/15/17 at 18:30 Dextrose (D50w Syringe) 50 ml Q15M PRN IV DECREASED GLUCOSE; Start 01/15/17 at 18:30 Glucagon (Glucagen) 1 mg Q15M PRN IM DECREASED GLUCOSE; Start 01/15/17 at 18:30 Glucose (Glutose) 15 gm Q15M PRN BUCCAL DECREASED GLUCOSE; Start 01/15/17 at 18 :30 Metoclopramide HCl (Reglan) 5 mg Q6 IV Last administered on 01/24/17 06:14; Admin Dose 5 MG; Start 01/16/17 at 18:00 Pentoxifylline (Trental) 400 mg DAILY PO Last administered on 01/24/17 08:23 ; Admin Dose 400 MG; Start 01/18/17 at 14:00 Famotidine (Pepcid Iv) 20 mg Q12 IV Last administered on 01/24/17 08:25; Admin Dose 20 MG; Start 01/20/17 at 09:00 Diazepam (Valium) 10 mg BID PRN PO ANXIETY Last administered on 01/23/17 14:23 ; Admin Dose 10 MG; Start 01/20/17 at 11:00 Lactulose (Enulose) 20 gm BID PO Last administered on 01/24/17 08:24; Admin Dose 20 GM; Start 01/20/17 at 21:00 Lorazepam (Ativan) 0.5 mg TID PO Last administered on 01/24/17 08:23; Admin Dose 0.5 MG; Start 01/20/17 at 21:00 Morphine Sulfate (morphine) 1 mg Q4H PRN IM PAIN; Start 01/23/17 at 10:00 Morphine Sulfate (morphine) 1 mg Q6 PRN IV pain Last administered on 10:08; Admin Dose 1 MG; Start 01/23/17 at 10:00 LAURA CORDERO MD Jan 24, 2017 10:35
[2017-01-24] MEDS: DEXTROSE 5% 1,000 ML IV SCH (13:01)
[2017-01-24] MEDS: DIAZEPAM 5 MG TAB PO PRN (13:55)
--- NOTE | 2017-01-24 14:17 | CONS ---
Date/Time of Note Date/Time of Note DATE: 01/24/17 TIME: 14:14 Assessment/Plan Assessment/Plan Additional Assessment/Plan Assessment and recommendations; 1. Patient admitted with hepatic encephalopathy exhibiting persistent mental changes due to that. However clinically improving gradually. 2. Status post respiratory failure. 3. Alcoholic cirrhosis. 4. Severe hyperbilirubinemia. 5. Hepatorenal syndrome with continually improving serum creatinine. 6. Anemia. 7. Improving thrombocytopenia. 8. Pancreatitis with marked improvement in serum amylase and lipase. 9. Persistent leukocytosis. Continue current treatment. CT abdomen pelvis is pending. Consultation Date/Type/Reason Admit Date/Time Jan 02, 2017 at 19:30 Initial Consult Date 01/07/17 Type of Consultation: Pulmonary Referring Provider: BRAEDEN LUNSFORD MD 24 HR Interval Summary Free Text/Dictation Patient's condition remains tenuous at best. Remains confused. But patient is answering questions appropriately with slurred speech. Has remained hemodynamically stable. General exam; young male, awake, currently in no distress. Exam/Review of Systems Vital Signs Vitals Vital Signs Date Time Temp Pulse Resp B/P Pulse Ox O2 Delivery O2 Flow Rate FiO2 01/24/17 08:31 98.1 84 19 142/71 95 Intake and Output 01/23/17 01/23/17 01/24/17 15:00 23:00 07:00 Intake Total 300 ml 690 ml 790 ml Output Total 1050 ml Balance 300 ml 690 ml -260 ml Exam HEENT exam; supple neck, no JVD. No lymphadenopathy. Midline trachea. No thyromegaly. Pharynx is clear. No oral bleeding seen. Patient appears deeply icteric. Chest exam; clear to auscultation. S1-S2 audible, no murmurs. Regular rhythm. Abdomen exam; soft, mildly protuberant. Nontender. Bowel sounds are sluggish. No organomegaly. Extremity exam; no peripheral edema. BATHHOUSE KEEPER exam; patient awake and follows simple commands moves all 4 extremities on command. Results Result Diagram: 01/24/17 0602 01/24/17 0602 Results 24 hrs Laboratory Tests Test 01/23/17 17:41 01/23/17 20:46 01/24/17 01:10 01/24/17 05:28 Bedside Glucose 165 163 118 112 Test 01/24/17 06:02 01/24/17 08:21 01/24/17 12:56 White Blood Count 43.0 H Red Blood Count 2.50 L Hemoglobin 8.7 L Hematocrit 26.8 L Mean Corpuscular Volume 107.2 H Mean Corpuscular Hemoglobin 34.8 H Mean Corpuscular Hemoglobin Concent 32.5 Red Cell Distribution Width 24.9 H Platelet Count 100 L Mean Platelet Volume 13.5 H Neutrophils % 87.0 H Segmented Neutrophils % (Manual) 91 H Lymphocytes % 2.6 L Lymphocytes % (Manual) 3 L Monocytes % 5.9 Monocytes % (Manual) 6 Eosinophils % 0.0 Basophils % 0.2 Nucleated Red Blood Cells % 0.2 H Neutrophils # 37.5 H Absolute Lymphocytes (Manual) 1.2 Lymphocytes # 1.1 Monocytes # 2.6 H Absolute Monocytes (Manual) 2.5 H Eosinophils # 0.0 Basophils # 0.1 Nucleated Red Blood Cells # 0.1 H Platelet Estimate DECREASED Polychromasia 1+ Poikilocytosis 1+ Anisocytosis 1+ Macrocytosis 1+ Target Cells 2+ Sodium Level 147 H Potassium Level 3.6 Chloride Level 112 H Carbon Dioxide Level 27 Anion Gap 12 Blood Urea Nitrogen 49 H Creatinine 1.54 H Glucose Level 104 Calcium Level 8.6 Total Bilirubin 27.9 H Direct Bilirubin 25.20 *H Indirect Bilirubin 2.7 H Aspartate Amino Transf (AST/SGOT) 156 H Alanine Aminotransferase (ALT/SGPT) 73 H Alkaline Phosphatase 465 H Total Protein 6.2 Albumin 2.6 L Globulin 3.60 H Albumin/Globulin Ratio 0.72 Bedside Glucose 107 137 Medications Medications Current Medications Ondansetron HCl (Zofran Inj) 4 mg Q6H PRN IV NAUSEA AND/OR VOMITING Last administered on 01/03/17 14:52; Admin Dose 4 MG; Start 01/02/17 at 23:00 Rifaximin (Xifaxan) 550 mg BID PO Last administered on 01/24/17 08:24; Admin Dose 550 MG; Start 01/04/17 at 11:00 IV Flush (NS 10 ml) 10 ml PRN PRN IV IV PROTOCOL; Start 01/05/17 at 18:30 Diagnostic Test (Pha) 1 ea 1 ea Q4 XX Last administered on 01/23/17 05:00; Admin Dose 1 EA; Start 01/06/17 at 17:00 Total Parenteral Nutrition (Tpn) 1,000 ml @ 50 mls/hr Q20H IV Last administered on 01/24/17 04:54; Admin Dose 50 MLS/HR; Start 01/09/17 at 18:00 Prednisolone (Prelone (Ped)) 40 mg DAILY PO Last administered on 01/24/17 08: 25; Admin Dose 40 MG; Start 01/12/17 at 09:00 Citric Acid/ Sodium Citrate (Bicitra) 30 ml TID NGT Last administered on 13:00; Admin Dose 30 ML; Start 01/12/17 at 09:00 Nystatin 5 ml 5 ml QID PO Last administered on 01/24/17 13:00; Admin Dose 5 ML; Start 01/13/17 at 17:00 Dextrose (D5W) 1,000 ml @ 20 mls/hr Q24H IV Last administered on 01/24/17 13 :01; Admin Dose 20 MLS/HR; Start 01/15/17 at 18:30 Insulin Aspart (Novolog Insulin Pen) NOVOLOG *MILD* ALGORI... Q4 SC Last administered on 01/23/17 20:50; Admin Dose 1 UNIT; Start 01/15/17 at 21:00 Miscellaneous Information 1 ea NOTE XX ; Start 01/15/17 at 18:30 Glucose (Glutose) 15 gm Q15M PRN PO DECREASED GLUCOSE; Start 01/15/17 at 18:30 Glucose (Glutose) 22.5 gm Q15M PRN PO DECREASED GLUCOSE; Start 01/15/17 at 18: 30 Dextrose (D50w Syringe) 25 ml Q15M PRN IV DECREASED GLUCOSE; Start 01/15/17 at 18:30 Dextrose (D50w Syringe) 50 ml Q15M PRN IV DECREASED GLUCOSE; Start 01/15/17 at 18:30 Glucagon (Glucagen) 1 mg Q15M PRN IM DECREASED GLUCOSE; Start 01/15/17 at 18:30 Glucose (Glutose) 15 gm Q15M PRN BUCCAL DECREASED GLUCOSE; Start 01/15/17 at 18 :30 Pentoxifylline (Trental) 400 mg DAILY PO Last administered on 01/24/17 08:23 ; Admin Dose 400 MG; Start 01/18/17 at 14:00 Famotidine (Pepcid Iv) 20 mg Q12 IV Last administered on 01/24/17 08:25; Admin Dose 20 MG; Start 01/20/17 at 09:00 Diazepam (Valium) 10 mg BID PRN PO ANXIETY Last administered on 01/24/17 13: 55; Admin Dose 10 MG; Start 01/20/17 at 11:00 Lactulose (Enulose) 20 gm BID PO Last administered on 01/24/17 08:24; Admin Dose 20 GM; Start 01/20/17 at 21:00 Lorazepam (Ativan) 0.5 mg TID PO Last administered on 01/24/17 13:00; Admin Dose 0.5 MG; Start 01/20/17 at 21:00 Morphine Sulfate (morphine) 1 mg Q4H PRN IM PAIN; Start 01/23/17 at 10:00 Morphine Sulfate (morphine) 1 mg Q6 PRN IV pain Last administered on 10:08; Admin Dose 1 MG; Start 01/23/17 at 10:00 Metoclopramide HCl (Reglan) 5 mg BID IV ; Start 01/24/17 at 21:00 NERI MCKEON Jan 24, 2017 14:16
[2017-01-24 14:35] VITALS: BP 131/66; RESP 18
--- NOTE | 2017-01-24 15:48 | PN ---
DATE: 01/24/2017 INFECTIOUS DISEASE PROGRESS NOTE SUBJECTIVE: The patient is more confused today, lying comfortably in bed. No fevers. VITAL SIGNS: Temperature 98.1, pulse 84, respirations 19, blood pressure 142/71, saturation 95% on room air. WBC today 43, H and H 8.7 and 26.8, platelets 100, neutrophils 87, BUN 49, creatinine 1.54. Sodium 147, total bilirubin 27.9 and alkaline phosphatase 465. MICROBIOLOGY: No new cultures. DIAGNOSTICS: Chest x-ray from yesterday revealed worse appearance of the lung base. INDWELLINGS: The patient has PICC line. PHYSICAL EXAMINATION: GENERAL: This is a chronically ill-appearing, middle-aged man who is sluggish in no distress. HEENT: Head atraumatic, normocephalic. Sclerae anicteric. Buccal mucosa dry. NECK: Supple. CHEST: Rise symmetrical. Breath sounds diminished to bases. HEART: S1, S2. ABDOMEN: Soft. Bowel tones hypoactive. EXTREMITIES: Without cyanosis. ASSESSMENT: 1. Sepsis, status post shock. 2. Persistent leukocytosis, possibly secondary to steroids. 3. Acute pancreatitis. 4. Alcoholic liver disease. 5. Ascites, status post paracentesis, cultures being negative. 6. Hepatic encephalopathy. 7. Acute renal failure, creatinine improving. PLAN: The patient is clinically unchanged, although more lethargic today and confused. White blood cell count continues to increase. Again, patient is on prednisone since . Antibiotics we re discontinued several days ago. We are going to order repeat CT of the abdomen. Repeat chest x-r ay in a.m. Follow on blood cultures and urine cultures. Continue anti-aspiration measures and foll ow recommendations of specialists. Dictated By: ROSALIA [facility] for MADELAINE PLASENCIA/JACQUELINE Conf#: [id number] DID#: [id number]
--- NOTE | 2017-01-24 17:08 | RADRPT ---
PROCEDURE: CT Abdomen and Pelvis without contrast. CLINICAL INDICATION: Abdominal and pelvic pain. Jaundice. TECHNIQUE: CT scan of the abdomen and pelvis without contrast was performed. Coronal and sagittal reformatted images were obtained from the axial source images. Images were reviewed on a high-resolu [employer] PACS workstation. Total exam DLP is 894.36 mGy-cm. CTDIvol is 13.80 mGy. One or more of the f ollowing dose reduction techniques were used: Automated exposure control, adjustment of the mA and/o r kV according to patient size, use of iterative reconstruction technique. COMPARISON: CT scan of the abdomen and pelvis dated 01/06/2017. FINDINGS: There is atelectasis at the lung bases posteriorly and there are small bilateral pleural effusions. The lung bases are otherwise normal. The heart size is normal and there is no pericardial effusion. The liver is normal in size and attenuation. There is no focal hepatic lesion. The gallbladder and bile ducts are normal. The spleen is normal in size. There is no focal splenic lesion. Both adrenals are normal with no enlargement or mass. The pancreas is enlarged and there is surrounding mesenteric edema consistent with pancreatitis, wor se than seen previously. There is fluid in the left and right anterior pararenal space. There is no mass or fluid collection to suggest abscess or pseudocyst. There is no renal mass or hydronephrosis. There is no renal calculus or ureteral calculus. The abdominal aorta is not dilated. There is no retroperitoneal lymphadenopathy or mass. There is no pelvic lymphadenopathy or mass. The bladder and distal ureters are normal. The appendix is well seen and appears normal. There is a rectal tube. The bowel and mesentery are ot herwise normal. There is moderate ascites, more than seen previously. There is no free air. The osseous structures are unremarkable with no fracture or lytic lesion. IMPRESSION: 1. Atelectasis at the lung bases posteriorly. 2. Small bilateral pleural effusions. 3. Acute pancreatitis, worse than seen previously. 4. No evidence of pseudocyst or abscess. 5. Rectal tube noted. 6. Moderate ascites, more than seen previously. RPTAT: QQ .Jesse Sanchez MD, MD Date Time Electronically viewed and signed by .Jesse Sanchez MD, on 01/24/2017 17:08 .R/
--- NOTE | 2017-01-24 18:11 | PN ---
Date/Time of Note Date/Time of Note DATE: 01/24/17 TIME: 18:10 Assessment/Plan VTE Prophylaxis VTE Prophylaxis Intervention: other Lines/Catheters IV Catheter Type (from Nrs): PICC Line Central line still needed: Yes Urinary Cath still in place: Yes Reason Cath still needed: other (indicate) Assessment/Plan Chief Complaint/Hosp Course # Acute on chronic liver failure likely Etoh abuse with elevated INR, Hyperbilirubenemia, low platelets, # Hepatic encephalopathy # ETOH withdrawal S/P # ETOH pancreatitis # Non Gap Acidosis likely combination of renal failure and diarrhoea # Leukocytosis could be pancreatitis vs Alcholic hepatitis # Hypoxic Respiratory failure s/p extubated on 01/15 # Thrombocytopenia # Anemia # s/P EGD with gastritis # Ileus s/p Small bowel follow thru which is negative, PLAN TPN CK LABS albumin iv fluid NEED REHAB PT OT Problems: Subjective 24 Hr Interval Summary Gastrointestinal: No diarrhea Genitourinary: no complaints Exam/Review of Systems Vital Signs Vitals Vital Signs Date Time Temp Pulse Resp B/P Pulse Ox O2 Delivery O2 Flow Rate FiO2 01/24/17 14:35 97.8 83 18 131/66 98 Intake and Output 01/23/17 01/23/17 01/24/17 14:59 22:59 06:59 Intake Total 300 ml 690 ml 790 ml Output Total 1050 ml Balance 300 ml 690 ml -260 ml Exam Neck: supple Respiratory: clear to auscultation Cardiovascular: regular rate and rhythm Gastrointestinal: soft Musculoskeletal: nl extremities to inspection Extremities: normal pulses Results Result Diagram: 01/24/17 0602 01/24/17 0602 Results 24 hrs Laboratory Tests Test 01/23/17 20:46 01/24/17 01:10 01/24/17 05:28 01/24/17 06:02 Bedside Glucose 163 118 112 White Blood Count 43.0 H Red Blood Count 2.50 L Hemoglobin 8.7 L Hematocrit 26.8 L Mean Corpuscular Volume 107.2 H Mean Corpuscular Hemoglobin 34.8 H Mean Corpuscular Hemoglobin Concent 32.5 Red Cell Distribution Width 24.9 H Platelet Count 100 L Mean Platelet Volume 13.5 H Neutrophils % 87.0 H Segmented Neutrophils % (Manual) 91 H Lymphocytes % 2.6 L Lymphocytes % (Manual) 3 L Monocytes % 5.9 Monocytes % (Manual) 6 Eosinophils % 0.0 Basophils % 0.2 Nucleated Red Blood Cells % 0.2 H Neutrophils # 37.5 H Absolute Lymphocytes (Manual) 1.2 Lymphocytes # 1.1 Monocytes # 2.6 H Absolute Monocytes (Manual) 2.5 H Eosinophils # 0.0 Basophils # 0.1 Nucleated Red Blood Cells # 0.1 H Platelet Estimate DECREASED Polychromasia 1+ Poikilocytosis 1+ Anisocytosis 1+ Macrocytosis 1+ Target Cells 2+ Sodium Level 147 H Potassium Level 3.6 Chloride Level 112 H Carbon Dioxide Level 27 Anion Gap 12 Blood Urea Nitrogen 49 H Creatinine 1.54 H Glucose Level 104 Calcium Level 8.6 Total Bilirubin 27.9 H Direct Bilirubin 25.20 *H Indirect Bilirubin 2.7 H Aspartate Amino Transf (AST/SGOT) 156 H Alanine Aminotransferase (ALT/SGPT) 73 H Alkaline Phosphatase 465 H Total Protein 6.2 Albumin 2.6 L Globulin 3.60 H Albumin/Globulin Ratio 0.72 Test 01/24/17 08:21 01/24/17 12:56 01/24/17 17:15 Bedside Glucose 107 137 144 Medications Medications Current Medications Ondansetron HCl (Zofran Inj) 4 mg Q6H PRN IV NAUSEA AND/OR VOMITING Last administered on 01/03/17 14:52; Admin Dose 4 MG; Start 01/02/17 at 23:00 Rifaximin (Xifaxan) 550 mg BID PO Last administered on 01/24/17 08:24; Admin Dose 550 MG; Start 01/04/17 at 11:00 IV Flush (NS 10 ml) 10 ml PRN PRN IV IV PROTOCOL; Start 01/05/17 at 18:30 Diagnostic Test (Pha) 1 ea 1 ea Q4 XX Last administered on 01/23/17 05:00; Admin Dose 1 EA; Start 01/06/17 at 17:00 Total Parenteral Nutrition (Tpn) 1,000 ml @ 50 mls/hr Q20H IV Last administered on 01/24/17 04:54; Admin Dose 50 MLS/HR; Start 01/09/17 at 18:00 Prednisolone (Prelone (Ped)) 40 mg DAILY PO Last administered on 01/24/17 08: 25; Admin Dose 40 MG; Start 01/12/17 at 09:00 Citric Acid/ Sodium Citrate (Bicitra) 30 ml TID NGT Last administered on 13:00; Admin Dose 30 ML; Start 01/12/17 at 09:00 Nystatin 5 ml 5 ml QID PO Last administered on 01/24/17 17:17; Admin Dose 5 ML; Start 01/13/17 at 17:00 Dextrose (D5W) 1,000 ml @ 20 mls/hr Q24H IV Last administered on 01/24/17 13 :01; Admin Dose 20 MLS/HR; Start 01/15/17 at 18:30 Insulin Aspart (Novolog Insulin Pen) NOVOLOG *MILD* ALGORI... Q4 SC Last administered on 01/24/17 17:28; Admin Dose 1 UNIT; Start 01/15/17 at 21:00 Miscellaneous Information 1 ea NOTE XX ; Start 01/15/17 at 18:30 Glucose (Glutose) 15 gm Q15M PRN PO DECREASED GLUCOSE; Start 01/15/17 at 18:30 Glucose (Glutose) 22.5 gm Q15M PRN PO DECREASED GLUCOSE; Start 01/15/17 at 18: 30 Dextrose (D50w Syringe) 25 ml Q15M PRN IV DECREASED GLUCOSE; Start 01/15/17 at 18:30 Dextrose (D50w Syringe) 50 ml Q15M PRN IV DECREASED GLUCOSE; Start 01/15/17 at 18:30 Glucagon (Glucagen) 1 mg Q15M PRN IM DECREASED GLUCOSE; Start 01/15/17 at 18:30 Glucose (Glutose) 15 gm Q15M PRN BUCCAL DECREASED GLUCOSE; Start 01/15/17 at 18 :30 Pentoxifylline (Trental) 400 mg DAILY PO Last administered on 01/24/17 08:23 ; Admin Dose 400 MG; Start 01/18/17 at 14:00 Famotidine (Pepcid Iv) 20 mg Q12 IV Last administered on 01/24/17 08:25; Admin Dose 20 MG; Start 01/20/17 at 09:00 Diazepam (Valium) 10 mg BID PRN PO ANXIETY Last administered on 01/24/17 13: 55; Admin Dose 10 MG; Start 01/20/17 at 11:00 Lactulose (Enulose) 20 gm BID PO Last administered on 01/24/17 08:24; Admin Dose 20 GM; Start 01/20/17 at 21:00 Lorazepam (Ativan) 0.5 mg TID PO Last administered on 01/24/17 13:00; Admin Dose 0.5 MG; Start 01/20/17 at 21:00 Morphine Sulfate (morphine) 1 mg Q4H PRN IM PAIN; Start 01/23/17 at 10:00 Morphine Sulfate (morphine) 1 mg Q6 PRN IV pain Last administered on 10:08; Admin Dose 1 MG; Start 01/23/17 at 10:00 Metoclopramide HCl (Reglan) 5 mg BID IV ; Start 01/24/17 at 21:00 JAYME BANSAL MD Jan 24, 2017 18:11
[2017-01-24 19:30] VITALS: BP 132/65; RESP 19
--- NOTE | 2017-01-24 23:28 | PN ---
Date/Time of Note Date/Time of Note DATE: 01/24/17 TIME: 23:15 Assessment/Plan Lines/Catheters IV Catheter Type (from [facility]): PICC Line Minaya in Place (from [facility]): Yes Assessment/Plan Chief Complaint/Hosp Course 1. Paralytic ileus 2nd acute processes. SBFT negative. Improved; +bowel function -Monitor 2. Acute on chronic alcoholic pancreatitis with peripancreatic fluid: CT: worsened pancreatitis -Supportive measures -Judicious fluid management -Trend labs -Encourage cessation 3. Acute GI bleed from gastritis and esophageal varices secondary to alcoholism. Stable -Transfuse as needed -Supportive measures: ppi -Correct coagulopathy and platelet dysfunction 4. Anemia secondary to above: h/h stable -As above 5. Leukocytosis, multifactorial with SIRS and steroid therapy, ? infectious( pl. effusions, atelectasis vs. pna +/- pancreatitis-worsened on CT); -Close monitoring -?Antibiotics/fluids 6. Alcoholic hepatitis with hepatosplenomegaly; elevated LFT's -Medical and GI optimization 7. Chronic alcohol abuse with Delirium Tremens; no tremors -Encourage cessation -Sedation/intubation 8. Subcapsular liver collection possible hematoma versus other -Monitor 9. Electrolyte imbalance -Correct with replacements and fluid management 10. Alcohol withdrawal with tachypnea, tachycardia and delirium tremens; improved -supportive 11. NICLOAS: output improving. improving -judicious fluids -avoid nephrotoxic meds 12. Atelectasis vs. pna -IS -increase activity-OOB as tolerated; PT Thank you. Patient seen and examined in collaboration with Dr. Bob Tristan. Problems: Subjective 24 Hr Interval Summary Worsened leukocytosis. Continues to be confused. +bowel function. No fevers, chills, congested cough, cp, palpitations, abdominal pain, n/v/dysuria. Exam/Review of Systems Vital Signs Vitals Vital Signs Date Time Temp Pulse Resp B/P Pulse Ox O2 Delivery O2 Flow Rate FiO2 01/24/17 19:30 98.1 90 19 132/65 97 Intake and Output 01/23/17 01/23/17 01/24/17 15:00 23:00 07:00 Intake Total 300 ml 690 ml 790 ml Output Total 1050 ml Balance 300 ml 690 ml -260 ml Exam Free Text/Dictation Constitutional: Confused Not oriented. more alert Psych: No nl mood/affect Head: atraumatic, normocephalic, No hematomas, No lacerations Eyes: EOMI, PERRL, icteric ENMT: nl external ears & nose, nl lips & teeth. Mucosa pink and dry. icteric Neck: non-tender, supple, No jvd Respiratory: No congested cough, No labored breathing Cardiovascular: No edema, No regular rate and rhythm Gastrointestinal: soft, min-tender (RLQ,noted with bruising-improving), min distended. No rebound or guarding Musculoskeletal: nl extremities to inspection, No joint tenderness; BLE edema Extremities: normal pulses, No calf tenderness, No cyanosis Neurological: Responsive Skin: rash or lesions (Jaundice), No diaphoresis, No nl turgor : minaya with luis output (improved; increased amount) Lymph: nl lymph nodes, nontender Results Result Diagram: 01/24/1760101/24/17601 ELIO GIBBONS NP Jan 24, 2017 23:28
[2017-01-25] MEDS: INSULIN ASPART [NOVOLOG] 3 ML PEN SC SCH ×4 (00:13→12:39)
[2017-01-25] MEDS: ACCU-CHEK XX SCH ×4 (00:14→12:58)
[2017-01-25 02:00] VITALS: BP 130/69; RESP 19
[2017-01-25] MEDS: TPN 1,000 ML IV SCH (02:23)
[2017-01-25 06:57] LABS: CALCIUM 8.7 mg/dl (8.4-10.2); CREATININE 1.53 mg/dl (0.61-1.24); MAGNESIUM 1.9 mg/dl (1.7-2.5); POTASSIUM 3.8 mmol/L (3.5-5.1)
[2017-01-25 07:22] VITALS: BP 128/58; RESP 20
[2017-01-25] MEDS: LACTULOSE 30ML CUP PO SCH ×2 (08:33→21:46)
[2017-01-25] MEDS: NYSTATIN SUSP 5 ML CUP PO SCH ×4 (08:33→21:46)
[2017-01-25] MEDS: PENTOXIFYLLINE (SR) 400 MG TAB PO SCH (08:33)
[2017-01-25] MEDS: RIFAXIMIN 550 MG TAB PO SCH ×2 (08:33→21:46)
[2017-01-25] MEDS: CITRIC ACID/NA CITRATE 30 ML CUP NGT SCH ×3 (08:33→21:46)
[2017-01-25] MEDS: predniSOLONE (3 MG/ML PO SYG) PO SCH (08:34)
[2017-01-25] MEDS: METOCLOPRAMIDE 10 MG INJ IV SCH ×2 (08:34→21:46)
[2017-01-25] MEDS: FAMOTIDINE 20 MG INJ IV SCH ×2 (08:34→21:46)
[2017-01-25] MEDS: BALSAM PERU/CASTOR OIL 60 GM TUBE TOP SCH ×2 (08:35→21:46)
[2017-01-25] MEDS: LORAZEPAM 0.5 MG TAB PO SCH ×3 (09:15→21:46)
--- NOTE | 2017-01-25 11:33 | PN ---
Date/Time of Note Date/Time of Note DATE: 01/25/17 TIME: 11:29 Assessment/Plan Lines/Catheters IV Catheter Type (from [facility]): PICC Line Minaya in Place (from [facility]): Yes Assessment/Plan Chief Complaint/Hosp Course 1. Paralytic ileus 2nd acute processes. SBFT negative. Improved; +bowel function -Monitor 2. Acute on chronic alcoholic pancreatitis with peripancreatic fluid: CT: worsened pancreatitis -?restart abx -Supportive measures -Judicious fluid management -Trend labs -Encourage cessation 3. Acute GI bleed from gastritis and esophageal varices secondary to alcoholism. Stable -Transfuse as needed -Supportive measures: ppi -Correct coagulopathy and platelet dysfunction 4. Anemia secondary to above: h/h stable -As above 5. Leukocytosis, multifactorial with SIRS and steroid therapy, ? infectious( pl. effusions, atelectasis vs. pna +/- pancreatitis-worsened on CT); -Close monitoring -?Antibiotics/fluids 6. Alcoholic hepatitis with hepatosplenomegaly; elevated LFT's -Medical and GI optimization 7. Chronic alcohol abuse with Delirium Tremens; no tremors -Encourage cessation -Sedation/intubation 8. Subcapsular liver collection possible hematoma versus other -Monitor 9. Electrolyte imbalance -Correct with replacements and fluid management 10. Alcohol withdrawal with tachypnea, tachycardia and delirium tremens; improved -supportive 11. NICOLAS: output improving. improving -judicious fluids -avoid nephrotoxic meds 12. Atelectasis vs. pna -IS -increase activity-OOB as tolerated; PT Thank you. Patient seen and examined in collaboration with Dr. Bob Tristan. Problems: Subjective 24 Hr Interval Summary Continues to be confused but follows simple commands. sitter at bedside. Leukocytosis worsened. No fevers, chills, sob, congested cough, n/v/d/dysuria. + bowel function per rectal tube. Exam/Review of Systems Vital Signs Vitals Vital Signs Date Time Temp Pulse Resp B/P Pulse Ox O2 Delivery O2 Flow Rate FiO2 01/25/17 07:22 97.5 75 20 128/58 99 Intake and Output 01/24/17 01/24/17 01/25/17 15:00 23:00 07:00 Intake Total 1040 ml 965 ml Output Total 900 ml 400 ml Balance 140 ml 565 ml Exam Free Text/Dictation Constitutional: Confused Not oriented. more alert Psych: No nl mood/affect Head: atraumatic, normocephalic, No hematomas, No lacerations Eyes: EOMI, PERRL, icteric ENMT: nl external ears & nose, nl lips & teeth. Mucosa pink and dry. icteric Neck: non-tender, supple, No jvd Respiratory: No congested cough, No labored breathing Cardiovascular: No edema, No regular rate and rhythm Gastrointestinal: soft, min-tender, min distended. No rebound or guarding; rectal tube with +gas/bm Musculoskeletal: nl extremities to inspection, No joint tenderness; BLE edema Extremities: normal pulses, No calf tenderness, No cyanosis Neurological: Responsive Skin: rash or lesions (Jaundice), No diaphoresis, No nl turgor : minaya with luis output (improved; increased amount) Lymph: nl lymph nodes, nontender Results Result Diagram: 01/24/17 0602 01/25/17 0529 ELIO GIBBONS NP Jan 25, 2017 11:33
--- NOTE | 2017-01-25 12:25 | CONS ---
Date/Time of Note Date/Time of Note DATE: 01/25/17 TIME: 12:22 Assessment/Plan Assessment/Plan Additional Assessment/Plan CT imaging of abdomen from yesterday showing moderate ascites with pancreatitis. Assessment and recommendations; 1. Patient admitted with acute hepatic encephalopathy due to alcoholic cirrhosis. Status post extubation several days ago with continually improving clinical status. 2. Status post acute renal failure due to hepatorenal syndrome with stable serum creatinine now. Patient not requiring any hemodialysis. 3. Upper GI bleed from gastritis with interval resolution. Status post EGD. 4. Thrombocytopenia. 5. Acute pancreatitis. 6. Persistent severe leukocytosis. 7. Persistent severe hyperbilirubinemia. Continue current supportive care. Patient is showing improvement overall. Consultation Date/Type/Reason Admit Date/Time Jan 02, 2017 at 19:30 Initial Consult Date 01/07/17 Type of Consultation: Pulmonary Referring Provider: BRAEDEN LUNSFORD MD 24 HR Interval Summary Free Text/Dictation Patient's condition is appearing improved. Patient is appearing much less somnolent, speech also has improved. Denies any shortness of breath, chest pain , abdominal pain. General exam; young male, awake and alert. Currently in no distress. Exam/Review of Systems Vital Signs Vitals Vital Signs Date Time Temp Pulse Resp B/P Pulse Ox O2 Delivery O2 Flow Rate FiO2 01/25/17 07:22 97.5 75 20 128/58 99 Intake and Output 01/24/17 01/24/17 01/25/17 15:00 23:00 07:00 Intake Total 1040 ml 965 ml Output Total 900 ml 400 ml Balance 140 ml 565 ml Exam HEENT exam; supple neck, no JVD. No lymphadenopathy. Midline trachea. No thyromegaly. Patient remains deeply icteric. Patient has a multiple carious teeth. No active oral bleeding seen. Pupils are equal and reactive to light. Chest exam; clear to auscultation. S1-S2 audible, no murmurs. Regular rhythm. Abdomen exam; soft, protuberant. Nontender. Bowel sounds are audible. No organomegaly felt. Extremity exam; no peripheral edema. 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 Results Result Diagram: 01/24/17 0602 01/25/17 0529 Results 24 hrs Laboratory Tests Test 01/24/17 12:56 01/24/17 17:15 01/24/17 21:28 01/25/17 05:29 Bedside Glucose 137 144 120 Sodium Level 145 H Potassium Level 3.8 Chloride Level 110 Carbon Dioxide Level 28 Anion Gap 11 Blood Urea Nitrogen 52 H Creatinine 1.53 H Glucose Level 128 Calcium Level 8.7 Phosphorus Level 4.0 Magnesium Level 1.9 Test 01/25/17 08:30 01/25/17 10:01 Bedside Glucose 101 Ammonia 17 Medications Medications Current Medications Ondansetron HCl (Zofran Inj) 4 mg Q6H PRN IV NAUSEA AND/OR VOMITING Last administered on 01/03/17 14:52; Admin Dose 4 MG; Start 01/02/17 at 23:00 Rifaximin (Xifaxan) 550 mg BID PO Last administered on 01/25/17 08:33; Admin Dose 550 MG; Start 01/04/17 at 11:00 IV Flush (NS 10 ml) 10 ml PRN PRN IV IV PROTOCOL; Start 01/05/17 at 18:30 Diagnostic Test (Pha) 1 ea 1 ea Q4 XX Last administered on 01/23/17 05:00; Admin Dose 1 EA; Start 01/06/17 at 17:00 Total Parenteral Nutrition (Tpn) 1,000 ml @ 50 mls/hr Q20H IV Last administered on 01/25/17 02:23; Admin Dose 50 MLS/HR; Start 01/09/17 at 18:00 Prednisolone (Prelone (Ped)) 40 mg DAILY PO Last administered on 01/25/17 08: 34; Admin Dose 40 MG; Start 01/12/17 at 09:00 Citric Acid/ Sodium Citrate (Bicitra) 30 ml TID NGT Last administered on 08:33; Admin Dose 30 ML; Start 01/12/17 at 09:00 Nystatin 5 ml 5 ml QID PO Last administered on 01/25/17 08:33; Admin Dose 5 ML; Start 01/13/17 at 17:00 Dextrose (D5W) 1,000 ml @ 20 mls/hr Q24H IV Last administered on 01/24/17 13 :01; Admin Dose 20 MLS/HR; Start 01/15/17 at 18:30 Insulin Aspart (Novolog Insulin Pen) NOVOLOG *MILD* ALGORI... Q4 SC Last administered on 01/24/17 17:28; Admin Dose 1 UNIT; Start 01/15/17 at 21:00 Miscellaneous Information 1 ea NOTE XX ; Start 01/15/17 at 18:30 Glucose (Glutose) 15 gm Q15M PRN PO DECREASED GLUCOSE; Start 01/15/17 at 18:30 Glucose (Glutose) 22.5 gm Q15M PRN PO DECREASED GLUCOSE; Start 01/15/17 at 18: 30 Dextrose (D50w Syringe) 25 ml Q15M PRN IV DECREASED GLUCOSE; Start 01/15/17 at 18:30 Dextrose (D50w Syringe) 50 ml Q15M PRN IV DECREASED GLUCOSE; Start 01/15/17 at 18:30 Glucagon (Glucagen) 1 mg Q15M PRN IM DECREASED GLUCOSE; Start 01/15/17 at 18:30 Glucose (Glutose) 15 gm Q15M PRN BUCCAL DECREASED GLUCOSE; Start 01/15/17 at 18 :30 Pentoxifylline (Trental) 400 mg DAILY PO Last administered on 01/25/17 08:33 ; Admin Dose 400 MG; Start 01/18/17 at 14:00 Famotidine (Pepcid Iv) 20 mg Q12 IV Last administered on 01/25/17 08:34; Admin Dose 20 MG; Start 01/20/17 at 09:00 Diazepam (Valium) 10 mg BID PRN PO ANXIETY Last administered on 01/24/17 13: 55; Admin Dose 10 MG; Start 01/20/17 at 11:00 Lactulose (Enulose) 20 gm BID PO Last administered on 01/25/17 08:33; Admin Dose 20 GM; Start 01/20/17 at 21:00 Lorazepam (Ativan) 0.5 mg TID PO Last administered on 01/25/17 09:15; Admin Dose 0.5 MG; Start 01/20/17 at 21:00 Morphine Sulfate (morphine) 1 mg Q4H PRN IM PAIN; Start 01/23/17 at 10:00 Morphine Sulfate (morphine) 1 mg Q6 PRN IV pain Last administered on 23:18; Admin Dose 1 MG; Start 01/23/17 at 10:00 Metoclopramide HCl (Reglan) 5 mg BID IV Last administered on 01/25/17 08:34; Admin Dose 5 MG; Start 01/24/17 at 21:00 NERI MCKEON Jan 25, 2017 12:25
[2017-01-25] MEDS: morphine 2 MG INJ IV PRN (13:58)
[2017-01-25] MEDS ORDERED: LIDOCAINE 1% (MPF) 5 ML VIAL ONE (15:05)
[2017-01-25 15:17] VITALS: BP 128/58; RESP 20
--- NOTE | 2017-01-25 15:23 | PN ---
DATE: 01/25/2017 SUBJECTIVE: No events overnight per report. No fevers. The patient is sleeping. As per report, is more awake today. No vomiting, no diarrhea. Looks comfortable. VITAL SIGNS: Temperature 97.5, pulse 75, respirations 20, blood pressure 128/58 , saturation 99% on room air. No labs this morning. Repeat CT of the abdomen yesterday revealed atelectasis at the lung bases posteriorly with small bilateral pleural effusion and acute pancreatitis, worse than seen previously but no evidence of pseudocyst or abscess. Moderate ascites more than seen previously. INDWELLINGS: The patient has a left upper extremity PICC line and rectal tube. PHYSICAL EXAMINATION: GENERAL: Chronically ill-appearing, middle-aged man who is in no distress. HEENT: Head atraumatic, normocephalic. Sclerae anicteric. Buccal mucosa dry. NECK: Supple, trachea midline. CHEST: Rise symmetrical. Breath sounds diminished to bases. HEART: S1, S2. ABDOMEN: Distended, soft. Bowel tones hypoactive. EXTREMITIES: With trace edema. ASSESSMENT: 1. Persistent leukocytosis secondary to acute pancreatitis and also steroid induced. 2. Hepatic encephalopathy. 3. Alcoholic liver disease. 4. Recurrent ascites, status post paracentesis on admission, cultures being negative. 5. Acute renal failure, improving. 6. Hepatic encephalopathy. 7. Status post septic shock. PLAN: Remains stable, no fevers. He is being seen by multiple consultants. He had been off antibiotics for 3 days. We will continue observing him. May need repeat paracentesis Dictated By: ROSALIA BARKER STRUCTURAL LAYOUT WORKER for [employer]ACQUELINE Conf#: [id number] DID#: [id number] DYLON
[2017-01-25 15:59] LABS: FLD PMN% 62.4 %; FLD RBC 25 /uL; FLD WBC 461 /cmm
[2017-01-25 16:07] LABS: FLD CLARITY CLOUDY; FLD COLOR ORANGE; FLD TYPE ASCITIS FLUID
--- NOTE | 2017-01-25 16:33 | RADRPT ---
PROCEDURE: Ultrasound guided paracentesis. CLINICAL INDICATION: Ascites and shortness of breath. COMPARISON: Ultrasound-guided paracentesis dated 01/16/2017. TECHNIQUE: The risks, benefits, and alternatives were explained to the patient and/or the patient's family, inc luding but not limited to bleeding, infection, pain, visceral or vascular damage, shock, and . The patient and/or the patient's family understood the risks and the alternatives and wished to pro ceed with the procedure. Informed written consent was obtained. A procedural time out was performed . The patient's name, date of , and procedure to be performed were verified. Utilizing ultrasound guidance, optimal location for entry to the peritoneal cavity was ascertained. The overlying skin was prepped and draped in the usual sterile fashion. Approximately 10 ml of 1% Xylocaine was injected locally for pain control. Using ultrasound guidance, an 8 Sinhala catheter wa s introduced into the peritoneal cavity in the right lower quadrant without difficulty. FINDINGS: Initial images demonstrate ascites. Approximately 2.2 liters of serous fluid was aspirated and sent for laboratory analysis. The patient tolerated the procedure well without complication. IMPRESSION: 1. Successful ultrasound-guided paracentesis. RPTAT: QQ .Jesse Sanchez MD, MD Date Time Electronically viewed and signed by .Jesse Sancehz MD, on 01/25/2017 16:33 .R/
[2017-01-25 16:47] LABS: FLD MN% 37.6 %
--- NOTE | 2017-01-25 17:09 | CONS ---
Date/Time of Note Date/Time of Note DATE: 01/25/17 TIME: 17:09 Assessment/Plan Assessment/Plan Additional Assessment/Plan Additional Assessment/Plan IMPRESSION: 1. Delirium tremens patient is still shaky unable to stand on his feet and continues to have slurred speech 2. Hepatic encephalopathy. Better patient is now communicating with slurred speech 3. Alcoholic liver disease. Patient is on prednisolone 4. Pancreatitis. Amylase has come down . Lipase is down 5. Leukocytosis. Persistent most probably related to alcoholic hepatitis and steroid 6. Renal insufficiency. Though the urine output is good. Renal function has improved a lot with good urine output. Creatinine is coming down. Now it is 1.6 7. Pedal edema resolved 8. Thrombocytopenia better 9. Ileus, small bowel follow-through was negative 10. Patient's gastroparesis might be related to uremia better 11. Hypernatremia Plan 1. Continue prednisolone 2. Your liquid diet, advance to solid diet, aspiration precaution 3. Patient is confused at times but more oriented than before 4. Reduce IV fluid since patient is third spacing, may need albumin. 5. Octreotide discontinued 6. We will monitor WBC, INR, total bilirubin, and creatinine on a regular basis 7. I had [id number]-[id number] discussion with the mother and the family members and also with the trucker and land classifier. 8. And is on pentoxifylline 400 mg once a day 10. Please avoid narcotics and also Ativan patient confusional state is secondary to hepatic encephalopathy 11. Abdominal paracentesis again 2.2 L of fluid removed 12. Physical therapy and discontinue Ativan, patient is unable to stand on his own for a long time. He needs physical therapist support and also a walker to hold on 13. Patient started on pentoxifylline 14. Discontinue Reglan Consultation Date/Type/Reason Admit Date/Time Jan 02, 2017 at 19:30 Type of Consultation: Pulmonary Referring Provider: BRAEDEN LUNSFORD MD 24 HR Interval Summary Free Text/Dictation Complains of abdominal pain Exam/Review of Systems Vital Signs Vitals Vital Signs Date Time Temp Pulse Resp B/P Pulse Ox O2 Delivery O2 Flow Rate FiO2 01/25/17 15:17 97.9 90 20 128/58 99 Intake and Output 01/24/17 01/24/17 01/25/17 15:00 23:00 07:00 Intake Total 1040 ml 965 ml Output Total 900 ml 400 ml Balance 140 ml 565 ml Exam Constitutional: alert, oriented, well developed Psych: nl mood/affect, no complaints Head: atraumatic, normocephalic Eyes: EOMI, PERRL, nl conjunctiva, nl lids, nl sclera ENMT: nl external ears & nose, nl lips & teeth, nl nasal mucosa & septum Neck: non-tender, supple Respiratory: clear to auscultation, normal air movement Cardiovascular: nl pulses, regular rate and rhythm Gastrointestinal: nl liver, spleen, non-tender, soft Musculoskeletal: nl extremities to inspection, nl gait and stance Extremities: normal pulses Neurological: LA[employer] 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 II-XII intact, nl mental status, nl speech, nl strength Skin: nl turgor, No rash or lesions Lymph: nl lymph nodes Results Result Diagram: 01/24/17 0602 01/25/17 0529 Results 24 hrs Laboratory Tests Test 01/24/17 17:15 01/24/17 21:28 01/25/17 05:29 01/25/17 08:30 Bedside Glucose 144 120 101 Sodium Level 145 H Potassium Level 3.8 Chloride Level 110 Carbon Dioxide Level 28 Anion Gap 11 Blood Urea Nitrogen 52 H Creatinine 1.53 H Glucose Level 128 Calcium Level 8.7 Phosphorus Level 4.0 Magnesium Level 1.9 Test 01/25/17 10:01 01/25/17 12:38 01/25/17 14:50 Ammonia 17 Bedside Glucose 123 Body Fluid Type ASCITIS FLUID Body Fluid Volume 1000.0 Body Fluid Color ORANGE Body Fluid Appearance CLOUDY Body Fluid WBC 461 Body Fluid RBC (Auto) 25 Body Fluid Polynuclear WBCs (%) 62.4 Body Fluid Mononuclear Cells % Auto 37.6 Medications Medications Current Medications Ondansetron HCl (Zofran Inj) 4 mg Q6H PRN IV NAUSEA AND/OR VOMITING Last administered on 01/03/17 14:52; Admin Dose 4 MG; Start 01/02/17 at 23:00 Rifaximin (Xifaxan) 550 mg BID PO Last administered on 01/25/17 08:33; Admin Dose 550 MG; Start 01/04/17 at 11:00 IV Flush (NS 10 ml) 10 ml PRN PRN IV IV PROTOCOL; Start 01/05/17 at 18:30 Prednisolone (Prelone (Ped)) 40 mg DAILY PO Last administered on 01/25/17 08: 34; Admin Dose 40 MG; Start 01/12/17 at 09:00 Citric Acid/ Sodium Citrate (Bicitra) 30 ml TID NGT Last administered on 12:39; Admin Dose 30 ML; Start 01/12/17 at 09:00 Nystatin 5 ml 5 ml QID PO Last administered on 01/25/17 12:39; Admin Dose 5 ML; Start 01/13/17 at 17:00 Dextrose (D5W) 1,000 ml @ 20 mls/hr Q24H IV Last administered on 01/24/17 13 :01; Admin Dose 20 MLS/HR; Start 01/15/17 at 18:30 Glucose (Glutose) 15 gm Q15M PRN PO DECREASED GLUCOSE; Start 01/15/17 at 18:30 Glucose (Glutose) 22.5 gm Q15M PRN PO DECREASED GLUCOSE; Start 01/15/17 at 18: 30 Dextrose (D50w Syringe) 25 ml Q15M PRN IV DECREASED GLUCOSE; Start 01/15/17 at 18:30 Dextrose (D50w Syringe) 50 ml Q15M PRN IV DECREASED GLUCOSE; Start 01/15/17 at 18:30 Glucagon (Glucagen) 1 mg Q15M PRN IM DECREASED GLUCOSE; Start 01/15/17 at 18:30 Glucose (Glutose) 15 gm Q15M PRN BUCCAL DECREASED GLUCOSE; Start 01/15/17 at 18 :30 Pentoxifylline (Trental) 400 mg DAILY PO Last administered on 01/25/17 08:33 ; Admin Dose 400 MG; Start 01/18/17 at 14:00 Famotidine (Pepcid Iv) 20 mg Q12 IV Last administered on 01/25/17 08:34; Admin Dose 20 MG; Start 01/20/17 at 09:00 Diazepam (Valium) 10 mg BID PRN PO ANXIETY Last administered on 01/24/17 13: 55; Admin Dose 10 MG; Start 01/20/17 at 11:00 Lactulose (Enulose) 20 gm BID PO Last administered on 01/25/17 08:33; Admin Dose 20 GM; Start 01/20/17 at 21:00 Lorazepam (Ativan) 0.5 mg TID PO Last administered on 01/25/17 12:39; Admin Dose 0.5 MG; Start 01/20/17 at 21:00 Morphine Sulfate (morphine) 1 mg Q4H PRN IM PAIN; Start 01/23/17 at 10:00 Morphine Sulfate (morphine) 1 mg Q6 PRN IV pain Last administered on 13:58; Admin Dose 1 MG; Start 01/23/17 at 10:00 Metoclopramide HCl (Reglan) 5 mg BID IV Last administered on 01/25/17 08:34; Admin Dose 5 MG; Start 01/24/17 at 21:00 Folic Acid (Folic Acid) 1 mg DAILY PO ; Start 01/26/17 at 09:00 Thiamine HCl (Vitamin B1) 100 mg DAILY PO ; Start 01/26/17 at 09:00 Multivit/Ca Carb/ B Cmplx/FA/Prenat (Elizabeth-Kaylee) 1 tab DAILY PO ; Start at 09:00 LAURA CORDERO MD Jan 25, 2017 17:09
--- NOTE | 2017-01-25 17:11 | CONS ---
Date/Time of Note Date/Time of Note DATE: 01/25/17 TIME: 17:10 Assessment/Plan Assessment/Plan Additional Assessment/Plan I just reviewed the patient is a side ache fluid result. Patient fluid is cloudy and is almost 500 WBC per Given the abdominal pain cloudy fluid and high concentration of WBC we are dealing with the spontaneous bacterial peritonitis Plan Patient needs to be started on antibiotic ceftriaxone. Consultation Date/Type/Reason Admit Date/Time Jan 02, 2017 at 19:30 Type of Consultation: Pulmonary Referring Provider: BRAEDEN LUNSFROD MD 24 HR Interval Summary Free Text/Dictation Abdominal pain Exam/Review of Systems Vital Signs Vitals Vital Signs Date Time Temp Pulse Resp B/P Pulse Ox O2 Delivery O2 Flow Rate FiO2 01/25/17 15:17 97.9 90 20 128/58 99 Intake and Output 01/24/17 01/24/17 01/25/17 15:00 23:00 07:00 Intake Total 1040 ml 965 ml Output Total 900 ml 400 ml Balance 140 ml 565 ml Exam Constitutional: alert, oriented, well developed Psych: nl mood/affect, no complaints Head: atraumatic, normocephalic Eyes: EOMI, PERRL, nl conjunctiva, nl lids, nl sclera ENMT: nl external ears & nose, nl lips & teeth, nl nasal mucosa & septum Neck: non-tender, supple Respiratory: clear to auscultation, normal air movement Cardiovascular: nl pulses, regular rate and rhythm Gastrointestinal: nl liver, spleen, non-tender, soft Musculoskeletal: nl extremities to inspection, nl gait and stance Extremities: normal pulses Neurological: PRODUCT SUPPORT REPRESENTATIVE II-XII intact, nl mental status, nl speech, nl strength Skin: nl turgor, No rash or lesions Lymph: nl lymph nodes Results Result Diagram: 01/24/17 0602 01/25/17 0529 Results 24 hrs Laboratory Tests Test 01/24/17 17:15 01/24/17 21:28 01/25/17 05:29 01/25/17 08:30 Bedside Glucose 144 120 101 Sodium Level 145 H Potassium Level 3.8 Chloride Level 110 Carbon Dioxide Level 28 Anion Gap 11 Blood Urea Nitrogen 52 H Creatinine 1.53 H Glucose Level 128 Calcium Level 8.7 Phosphorus Level 4.0 Magnesium Level 1.9 Test 01/25/17 10:01 01/25/17 12:38 01/25/17 14:50 Ammonia 17 Bedside Glucose 123 Body Fluid Type ASCITIS FLUID Body Fluid Volume 1000.0 Body Fluid Color ORANGE Body Fluid Appearance CLOUDY Body Fluid WBC 461 Body Fluid RBC (Auto) 25 Body Fluid Polynuclear WBCs (%) 62.4 Body Fluid Mononuclear Cells % Auto 37.6 Medications Medications Current Medications Ondansetron HCl (Zofran Inj) 4 mg Q6H PRN IV NAUSEA AND/OR VOMITING Last administered on 01/03/17 14:52; Admin Dose 4 MG; Start 01/02/17 at 23:00 Rifaximin (Xifaxan) 550 mg BID PO Last administered on 01/25/17 08:33; Admin Dose 550 MG; Start 01/04/17 at 11:00 IV Flush (NS 10 ml) 10 ml PRN PRN IV IV PROTOCOL; Start 01/05/17 at 18:30 Prednisolone (Prelone (Ped)) 40 mg DAILY PO Last administered on 01/25/17 08: 34; Admin Dose 40 MG; Start 01/12/17 at 09:00 Citric Acid/ Sodium Citrate (Bicitra) 30 ml TID NGT Last administered on 12:39; Admin Dose 30 ML; Start 01/12/17 at 09:00 Nystatin 5 ml 5 ml QID PO Last administered on 01/25/17 12:39; Admin Dose 5 ML; Start 01/13/17 at 17:00 Dextrose (D5W) 1,000 ml @ 20 mls/hr Q24H IV Last administered on 01/24/17 13 :01; Admin Dose 20 MLS/HR; Start 01/15/17 at 18:30 Glucose (Glutose) 15 gm Q15M PRN PO DECREASED GLUCOSE; Start 01/15/17 at 18:30 Glucose (Glutose) 22.5 gm Q15M PRN PO DECREASED GLUCOSE; Start 01/15/17 at 18: 30 Dextrose (D50w Syringe) 25 ml Q15M PRN IV DECREASED GLUCOSE; Start 01/15/17 at 18:30 Dextrose (D50w Syringe) 50 ml Q15M PRN IV DECREASED GLUCOSE; Start 01/15/17 at 18:30 Glucagon (Glucagen) 1 mg Q15M PRN IM DECREASED GLUCOSE; Start 01/15/17 at 18:30 Glucose (Glutose) 15 gm Q15M PRN BUCCAL DECREASED GLUCOSE; Start 01/15/17 at 18 :30 Pentoxifylline (Trental) 400 mg DAILY PO Last administered on 01/25/17 08:33 ; Admin Dose 400 MG; Start 01/18/17 at 14:00 Famotidine (Pepcid Iv) 20 mg Q12 IV Last administered on 01/25/17 08:34; Admin Dose 20 MG; Start 01/20/17 at 09:00 Diazepam (Valium) 10 mg BID PRN PO ANXIETY Last administered on 01/24/17 13: 55; Admin Dose 10 MG; Start 01/20/17 at 11:00 Lactulose (Enulose) 20 gm BID PO Last administered on 01/25/17 08:33; Admin Dose 20 GM; Start 01/20/17 at 21:00 Lorazepam (Ativan) 0.5 mg TID PO Last administered on 01/25/17 12:39; Admin Dose 0.5 MG; Start 01/20/17 at 21:00 Morphine Sulfate (morphine) 1 mg Q4H PRN IM PAIN; Start 01/23/17 at 10:00 Morphine Sulfate (morphine) 1 mg Q6 PRN IV pain Last administered on 13:58; Admin Dose 1 MG; Start 01/23/17 at 10:00 Metoclopramide HCl (Reglan) 5 mg BID IV Last administered on 01/25/17 08:34; Admin Dose 5 MG; Start 01/24/17 at 21:00 Folic Acid (Folic Acid) 1 mg DAILY PO ; Start 01/26/17 at 09:00 Thiamine HCl (Vitamin B1) 100 mg DAILY PO ; Start 01/26/17 at 09:00 Multivit/Ca Carb/ B Cmplx/FA/Prenat (Elizabeth-Kaylee) 1 tab DAILY PO ; Start at 09:00 LAURA CORDERO MD Jan 25, 2017 17:11
[2017-01-25 17:22] LABS: FLUID LD 388 U/L; FLUID TYPE ASCITIES FLUID
[2017-01-25] MEDS ORDERED: CEFTRIAXONE 2 GM/50 ML (PMX) 50 ML IVPB SCH (18:00)
[2017-01-25] MEDS: DEXTROSE 5% 1,000 ML IV SCH (18:30)
[2017-01-25 20:00] VITALS: BP 129/60; RESP 20
--- NOTE | 2017-01-25 20:37 | PN ---
Date/Time of Note Date/Time of Note DATE: 01/25/17 TIME: 20:34 Assessment/Plan VTE Prophylaxis VTE Prophylaxis Intervention: other Lines/Catheters IV [facility] Type (from [facility] PICC Line Central line still needed: Yes Urinary Cath still in place: No Assessment/Plan Chief Complaint/Hosp Course # Acute on chronic liver failure likely Etoh abuse with elevated INR, Hyperbilirubenemia, low platelets, # Hepatic encephalopathy # ETOH withdrawal S/P # ETOH pancreatitis # Non Gap Acidosis likely combination of renal failure and diarrhoea # Leukocytosis could be pancreatitis vs Alcholic hepatitis AND SBP # Hypoxic Respiratory failure s/p extubated on 01/15 # Thrombocytopenia # Anemia # s/P EGD with gastritis # Ileus s/p Small bowel follow thru which is negative, SBP PLAN TPN TAPER [facility] albumin iv fluid NEED REHAB PT OT ANTIBIOTIC Problems: Subjective 24 Hr Interval Summary Subjective hx not possible: other (NO WALKING ,WILL NEED REHAB OR SNF) Respiratory: no complaints Cardiovascular: no complaints Gastrointestinal: no complaints, No diarrhea, No vomiting Genitourinary: no complaints Exam/Review of Systems Vital Signs Vitals Vital Signs Date Time Temp Pulse Resp B/P Pulse Ox O2 Delivery O2 Flow Rate FiO2 01/25/17 15:17 97.9 90 20 128/58 99 Intake and Output 01/24/17 01/24/17 01/25/17 15:00 23:00 07:00 Intake Total 1040 ml 965 ml Output Total 900 ml 400 ml Balance 140 ml 565 ml Exam Neck: supple Respiratory: clear to auscultation Cardiovascular: regular rate and rhythm Gastrointestinal: ascites (+), bowel sounds (+), soft Extremities: No edema Results Result Diagram: 01/24/17 0602 01/25/17 0529 Results 24 hrs Laboratory Tests Test 01/24/17 21:28 01/25/17 05:29 01/25/17 08:30 01/25/17 10:01 Bedside Glucose 120 101 Sodium Level 145 H Potassium Level 3.8 Chloride Level 110 Carbon Dioxide Level 28 Anion Gap 11 Blood Urea Nitrogen 52 H Creatinine 1.53 H Glucose Level 128 Calcium Level 8.7 Phosphorus Level 4.0 Magnesium Level 1.9 Ammonia 17 Test 01/25/17 12:38 01/25/17 14:50 Bedside Glucose 123 Body Fluid Type ASCITIES FLUID Body Fluid Volume 1000.0 Body Fluid Color ORANGE Body Fluid Appearance CLOUDY Body Fluid WBC 461 Body Fluid RBC (Auto) 25 Body Fluid Polynuclear WBCs (%) 62.4 Body Fluid Mononuclear Cells % Auto 37.6 Body Fluid Lactate Dehydrogenase 388 Medications Medications Current Medications Ondansetron HCl (Zofran Inj) 4 mg Q6H PRN IV NAUSEA AND/OR VOMITING Last administered on 01/03/17 14:52; Admin Dose 4 MG; Start 01/02/17 at 23:00 Rifaximin (Xifaxan) 550 mg BID PO Last administered on 01/25/17 08:33; Admin Dose 550 MG; Start 01/04/17 at 11:00 IV Flush (NS 10 ml) 10 ml PRN PRN IV IV PROTOCOL; Start 01/05/17 at 18:30 Prednisolone (Prelone (Ped)) 40 mg DAILY PO Last administered on 01/25/17 08: 34; Admin Dose 40 MG; Start 01/12/17 at 09:00 Citric Acid/ Sodium Citrate (Bicitra) 30 ml TID NGT Last administered on 12:39; Admin Dose 30 ML; Start 01/12/17 at 09:00 Nystatin 5 ml 5 ml QID PO Last administered on 01/25/17 17:00; Admin Dose 5 ML; Start 01/13/17 at 17:00 Dextrose (D5W) 1,000 ml @ 20 mls/hr Q24H IV Last administered on 01/24/17 13 :01; Admin Dose 20 MLS/HR; Start 01/15/17 at 18:30 Glucose (Glutose) 15 gm Q15M PRN PO DECREASED GLUCOSE; Start 01/15/17 at 18:30 Glucose (Glutose) 22.5 gm Q15M PRN PO DECREASED GLUCOSE; Start 01/15/17 at 18: 30 Dextrose (D50w Syringe) 25 ml Q15M PRN IV DECREASED GLUCOSE; Start 01/15/17 at 18:30 Dextrose (D50w Syringe) 50 ml Q15M PRN IV DECREASED GLUCOSE; Start 01/15/17 at 18:30 Glucagon (Glucagen) 1 mg Q15M PRN IM DECREASED GLUCOSE; Start 01/15/17 at 18:30 Glucose (Glutose) 15 gm Q15M PRN BUCCAL DECREASED GLUCOSE; Start 01/15/17 at 18 :30 Pentoxifylline (Trental) 400 mg DAILY PO Last administered on 01/25/17 08:33 ; Admin Dose 400 MG; Start 01/18/17 at 14:00 Famotidine (Pepcid Iv) 20 mg Q12 IV Last administered on 01/25/17 08:34; Admin Dose 20 MG; Start 01/20/17 at 09:00 Diazepam (Valium) 10 mg BID PRN PO ANXIETY Last administered on 01/24/17 13: 55; Admin Dose 10 MG; Start 01/20/17 at 11:00 Lactulose (Enulose) 20 gm BID PO Last administered on 01/25/17 08:33; Admin Dose 20 GM; Start 01/20/17 at 21:00 Lorazepam (Ativan) 0.5 mg TID PO Last administered on 01/25/17 12:39; Admin Dose 0.5 MG; Start 01/20/17 at 21:00 Morphine Sulfate (morphine) 1 mg Q4H PRN IM PAIN; Start 01/23/17 at 10:00 Morphine Sulfate (morphine) 1 mg Q6 PRN IV pain Last administered on 13:58; Admin Dose 1 MG; Start 01/23/17 at 10:00 Metoclopramide HCl (Reglan) 5 mg BID IV Last administered on 01/25/17 08:34; Admin Dose 5 MG; Start 01/24/17 at 21:00 Folic Acid (Folic Acid) 1 mg DAILY PO ; Start 01/26/17 at 09:00 Thiamine HCl (Vitamin B1) 100 mg DAILY PO ; Start 01/26/17 at 09:00 Multivit/Ca Carb/ B Cmplx/FA/Prenat 1 tab 1 tab DAILY PO ; Start 01/26/17 at 09 :00 Ceftriaxone Sodium (Rocephin) 50 ml @ 100 mls/hr Q24H IVPB Last administered on 01/25/17 18:42; Admin Dose 100 MLS/HR; Start 01/25/17 at 18:00 JAYME BANSAL MD Jan 25, 2017 20:37
[2017-01-26 02:00] VITALS: BP 123/63; RESP 20
[2017-01-26 07:52] VITALS: BP 114/67; RESP 20
[2017-01-26 08:14] LABS: ABNORMAL IP MESSAGE 1; HEMATOCRIT 28.6 % (42.0-52.0); HEMOGLOBIN 9.3 g/dl (14.0-18.0); MEAN CORPUSCULAR HGB CONC 32.5 g/dl (32.0-37.0); MEAN CORPUSCULAR VOLUME 107.5 fl (82.0-101.0); NUCLEATED RED BLOOD CELLS% 0.2 /100WBC (0.0-0.0); PLATELET COUNT 93 10^3/UL (140-415); POSITIVE DIFF @See below; RED BLOOD COUNT 2.66 10^6/ul (4.70-6.10); RED CELL DISTRIBUTION WIDTH 25.2 % (11.5-14.5); WHITE BLOOD COUNT 48.4 10^3/ul (4.8-10.8)
[2017-01-26 08:51] LABS: ALBUMIN 2.4 g/dl (3.3-4.9); ALBUMIN/GLOBULIN RATIO 0.57; CALCIUM 8.9 mg/dl (8.4-10.2); CREATININE 1.83 mg/dl (0.61-1.24); POTASSIUM 3.9 mmol/L (3.5-5.1); TOTAL PROTEIN 6.6 g/dl (6.1-8.1)
[2017-01-26] MEDS: FAMOTIDINE 20 MG INJ IV SCH ×2 (08:51→20:06)
[2017-01-26] MEDS: LACTULOSE 30ML CUP PO SCH ×2 (08:51→20:05)
[2017-01-26] MEDS: NYSTATIN SUSP 5 ML CUP PO SCH ×4 (08:51→20:05)
[2017-01-26] MEDS: CITRIC ACID/NA CITRATE 30 ML CUP NGT SCH ×3 (08:51→20:05)
[2017-01-26] MEDS: MULTIVIT/CA CARB/B CMPLX/FA TAB PO SCH (08:52)
[2017-01-26] MEDS: PENTOXIFYLLINE (SR) 400 MG TAB PO SCH (08:52)
[2017-01-26] MEDS: RIFAXIMIN 550 MG TAB PO SCH ×2 (08:52→20:05)
[2017-01-26] MEDS: THIAMINE 100 MG TAB PO SCH (08:52)
[2017-01-26] MEDS: FOLIC ACID 1 MG TAB PO SCH (08:52)
[2017-01-26] MEDS: METOCLOPRAMIDE 10 MG INJ IV SCH (08:52)
[2017-01-26] MEDS: predniSOLONE (3 MG/ML PO SYG) PO SCH (08:52)
[2017-01-26] MEDS: LORAZEPAM 0.5 MG TAB PO SCH ×3 (08:53→20:06)
[2017-01-26] MEDS: BALSAM PERU/CASTOR OIL 60 GM TUBE TOP SCH ×2 (08:53→20:05)
[2017-01-26 08:59] LABS: BILIRUBIN,TOTAL 28.4 mg/dl (0.2-1.3)
[2017-01-26 09:01] LABS: BILIRUBIN,DIRECT 25.4 mg/dl (0.00-0.20)
--- NOTE | 2017-01-26 11:08 | CONS ---
Date/Time of Note Date/Time of Note DATE: 01/26/17 TIME: 11:07 Assessment/Plan Assessment/Plan Additional Assessment/Plan IMPRESSION: 1. Delirium tremens patient is still shaky unable to stand on his feet and continues to have slurred speech 2. Hepatic encephalopathy. Better patient is now communicating with slurred speech 3. Alcoholic liver disease. Patient is on prednisolone 4. Pancreatitis. Amylase has come down . Lipase is down 5. Leukocytosis. Persistent most probably related to alcoholic hepatitis and steroid 6. Renal insufficiency. Though the urine output is good. Renal function has improved a lot with good urine output. Creatinine is coming down. Now it is 1.6 7. Pedal edema resolved 8. Thrombocytopenia better 9. Ileus, small bowel follow-through was negative 10. Patient's gastroparesis might be related to uremia better 11. Hypernatremia 12. Spontaneous bacterial peritonitis. Acetic fluid was cloudy, WBC polymorphs where greater than 250 Plan 1. Continue prednisolone 2. Your liquid diet, advance to solid diet, aspiration precaution 3. Patient is confused at times but more oriented than before 4. Reduce IV fluid since patient is third spacing, may need albumin. 5. Octreotide discontinued 6. We will monitor WBC, INR, total bilirubin, and creatinine on a regular basis 7. I had echo-ld-qyme discussion with the mother and the family members and also with the production checker and molding manager. 8. And is on pentoxifylline 400 mg once a day 10. Please avoid narcotics and also Ativan patient confusional state is secondary to hepatic encephalopathy 11. Abdominal paracentesis again 2.2 L of fluid removed 12. Physical therapy and discontinue Ativan, patient is unable to stand on his own for a long time. He needs physical therapist support and also a walker to hold on 13. Patient started on pentoxifylline 14. Discontinue Reglan 15. Ceftriaxone for spontaneous bacterial peritonitis Consultation Date/Type/Reason Admit Date/Time Jan 02, 2017 at 19:30 Type of Consultation: Pulmonary Referring Provider: BRAEDEN LUNSFORD MD 24 HR Interval Summary Free Text/Dictation Slurred speech and jaundice, still confused Exam/Review of Systems Vital Signs Vitals Vital Signs Date Time Temp Pulse Resp B/P Pulse Ox O2 Delivery O2 Flow Rate FiO2 01/26/17 07:52 98.0 82 20 114/67 95 Intake and Output 01/25/17 01/25/17 01/26/17 15:00 23:00 07:00 Intake Total 425 ml 590 ml 340 ml Output Total 1900 ml Balance 425 ml -1310 ml 340 ml Exam Constitutional: alert, oriented, well developed Psych: nl mood/affect, no complaints Head: atraumatic, normocephalic Eyes: EOMI, PERRL, nl conjunctiva, nl lids, nl sclera ENMT: nl external ears & nose, nl lips & teeth, nl nasal mucosa & septum Neck: non-tender, supple Respiratory: clear to auscultation, normal air movement Cardiovascular: nl pulses, regular rate and rhythm Gastrointestinal: nl liver, spleen, non-tender, soft Musculoskeletal: nl extremities to inspection, nl gait and stance Extremities: normal pulses Neurological: DIRECTOR OF PATIENT SAFETY II-XII intact, nl mental status, nl speech, nl strength Skin: nl turgor, No rash or lesions Lymph: nl lymph nodes Results Result Diagram: 01/26/17 0733 01/26/17 0730 Results 24 hrs Laboratory Tests Test 01/25/17 12:38 01/25/17 14:50 01/26/17 07:30 01/26/17 07:33 Bedside Glucose 123 Body Fluid Type ASCITIES FLUID Body Fluid Volume 1000.0 Body Fluid Color ORANGE Body Fluid Appearance CLOUDY Body Fluid WBC 461 Body Fluid RBC (Auto) 25 Body Fluid Polynuclear WBCs (%) 62.4 Body Fluid Mononuclear Cells % Auto 37.6 Body Fluid Lactate Dehydrogenase 388 Sodium Level 147 H Potassium Level 3.9 Chloride Level 111 H Carbon Dioxide Level 28 Anion Gap 12 Blood Urea Nitrogen 57 H Creatinine 1.83 H Glucose Level 99 Calcium Level 8.9 Total Bilirubin 28.4 H Direct Bilirubin 25.40 *H Indirect Bilirubin 3.0 H Aspartate Amino Transf (AST/SGOT) 184 H Alanine Aminotransferase (ALT/SGPT) 73 H Alkaline Phosphatase 508 H Total Protein 6.6 Albumin 2.4 L Globulin 4.20 H Albumin/Globulin Ratio 0.57 White Blood Count 48.4 H Red Blood Count 2.66 L Hemoglobin 9.3 L Hematocrit 28.6 L Mean Corpuscular Volume 107.5 H Mean Corpuscular Hemoglobin 35.0 H Mean Corpuscular Hemoglobin Concent 32.5 Red Cell Distribution Width 25.2 H Platelet Count 93 L Mean Platelet Volume Neutrophils % Lymphocytes % Monocytes % Eosinophils % Basophils % Nucleated Red Blood Cells % 0.2 H Neutrophils # Lymphocytes # Monocytes # Eosinophils # Basophils # Nucleated Red Blood Cells # Medications Medications Current Medications Ondansetron HCl (Zofran Inj) 4 mg Q6H PRN IV NAUSEA AND/OR VOMITING Last administered on 01/03/17 14:52; Admin Dose 4 MG; Start 01/02/17 at 23:00 Rifaximin (Xifaxan) 550 mg BID PO Last administered on 01/26/17 08:52; Admin Dose 550 MG; Start 01/04/17 at 11:00 IV Flush (NS 10 ml) 10 ml PRN PRN IV IV PROTOCOL; Start 01/05/17 at 18:30 Prednisolone (Prelone (Ped)) 40 mg DAILY PO Last administered on 01/26/17 08: 52; Admin Dose 40 MG; Start 01/12/17 at 09:00 Citric Acid/ Sodium Citrate (Bicitra) 30 ml TID NGT Last administered on 08:51; Admin Dose 30 ML; Start 01/12/17 at 09:00 Nystatin 5 ml 5 ml QID PO Last administered on 01/26/17 08:51; Admin Dose 5 ML; Start 01/13/17 at 17:00 Dextrose (D5W) 1,000 ml @ 20 mls/hr Q24H IV Last administered on 01/24/17 13 :01; Admin Dose 20 MLS/HR; Start 01/15/17 at 18:30 Glucose (Glutose) 15 gm Q15M PRN PO DECREASED GLUCOSE; Start 01/15/17 at 18:30 Glucose (Glutose) 22.5 gm Q15M PRN PO DECREASED GLUCOSE; Start 01/15/17 at 18: 30 Dextrose (D50w Syringe) 25 ml Q15M PRN IV DECREASED GLUCOSE; Start 01/15/17 at 18:30 Dextrose (D50w Syringe) 50 ml Q15M PRN IV DECREASED GLUCOSE; Start 01/15/17 at 18:30 Glucagon (Glucagen) 1 mg Q15M PRN IM DECREASED GLUCOSE; Start 01/15/17 at 18:30 Glucose (Glutose) 15 gm Q15M PRN BUCCAL DECREASED GLUCOSE; Start 01/15/17 at 18 :30 Pentoxifylline (Trental) 400 mg DAILY PO Last administered on 01/26/17 08:52 ; Admin Dose 400 MG; Start 01/18/17 at 14:00 Famotidine (Pepcid Iv) 20 mg Q12 IV Last administered on 01/26/17 08:51; Admin Dose 20 MG; Start 01/20/17 at 09:00 Diazepam (Valium) 10 mg BID PRN PO ANXIETY Last administered on 01/24/17 13: 55; Admin Dose 10 MG; Start 01/20/17 at 11:00 Lactulose (Enulose) 20 gm BID PO Last administered on 01/26/17 08:51; Admin Dose 20 GM; Start 01/20/17 at 21:00 Lorazepam (Ativan) 0.5 mg TID PO Last administered on 01/26/17 08:53; Admin Dose 0.5 MG; Start 01/20/17 at 21:00 Morphine Sulfate (morphine) 1 mg Q4H PRN IM PAIN; Start 01/23/17 at 10:00 Morphine Sulfate (morphine) 1 mg Q6 PRN IV pain Last administered on 13:58; Admin Dose 1 MG; Start 01/23/17 at 10:00 Metoclopramide HCl (Reglan) 5 mg BID IV Last administered on 01/26/17 08:52; Admin Dose 5 MG; Start 01/24/17 at 21:00 Folic Acid (Folic Acid) 1 mg DAILY PO Last administered on 01/26/17 08:52; Admin Dose 1 MG; Start 01/26/17 at 09:00 Thiamine HCl (Vitamin B1) 100 mg DAILY PO Last administered on 01/26/17 08:52 ; Admin Dose 100 MG; Start 01/26/17 at 09:00 Multivit/Ca Carb/ B Cmplx/FA/Prenat 1 tab 1 tab DAILY PO Last administered on 01/26/17 08:52; Admin Dose 1 TAB; Start 01/26/17 at 09:00 Ceftriaxone Sodium (Rocephin) 50 ml @ 100 mls/hr Q24H IVPB Last administered on 01/25/17 18:42; Admin Dose 100 MLS/HR; Start 01/25/17 at 18:00 LAURA CORDERO MD Jan 26, 2017 11:08
[2017-01-26 11:32] LABS: ANISOCYTOSIS 1+ (0-0); EOSINOPHILS % (M) 2 % (0-7); MONOCYTES % (M) 4 % (0-11); PLATELET ESTIMATE DECREASED; POLYCHROMASIA 1+ (0-0); TARGET CELLS 1+ (0-0)
--- NOTE | 2017-01-26 11:37 | CONS ---
Date/Time of Note Date/Time of Note DATE: 01/26/17 TIME: 11:36 Consultation Date/Type/Reason Admit Date/Time Jan 02, 2017 at 19:30 Initial Consult Date 01/07/17 Type of Consultation: Pulmonary Referring Provider: BRAEDEN LUNSFORD MD 24 HR Interval Summary Free Text/Dictation dictated # [id number] Exam/Review of Systems Vital Signs Vitals Vital Signs Date Time Temp Pulse Resp B/P Pulse Ox O2 Delivery O2 Flow Rate FiO2 01/26/17 07:52 98.0 82 20 114/67 95 Intake and Output 01/25/17 01/25/17 01/26/17 15:00 23:00 07:00 Intake Total 425 ml 590 ml 340 ml Output Total 1900 ml Balance 425 ml -1310 ml 340 ml Results Result Diagram: 01/26/17 0733 01/26/17 0730 Results 24 hrs Laboratory Tests Test 01/25/17 12:38 01/25/17 14:50 01/26/17 07:30 01/26/17 07:33 Bedside Glucose 123 Body Fluid Type ASCITIES FLUID Body Fluid Volume 1000.0 Body Fluid Color ORANGE Body Fluid Appearance CLOUDY Body Fluid WBC 461 Body Fluid RBC (Auto) 25 Body Fluid Polynuclear WBCs (%) 62.4 Body Fluid Mononuclear Cells % Auto 37.6 Body Fluid Lactate Dehydrogenase 388 Sodium Level 147 H Potassium Level 3.9 Chloride Level 111 H Carbon Dioxide Level 28 Anion Gap 12 Blood Urea Nitrogen 57 H Creatinine 1.83 H Glucose Level 99 Calcium Level 8.9 Total Bilirubin 28.4 H Direct Bilirubin 25.40 *H Indirect Bilirubin 3.0 H Aspartate Amino Transf (AST/SGOT) 184 H Alanine Aminotransferase (ALT/SGPT) 73 H Alkaline Phosphatase 508 H Total Protein 6.6 Albumin 2.4 L Globulin 4.20 H Albumin/Globulin Ratio 0.57 White Blood Count 48.4 H Red Blood Count 2.66 L Hemoglobin 9.3 L Hematocrit 28.6 L Mean Corpuscular Volume 107.5 H Mean Corpuscular Hemoglobin 35.0 H Mean Corpuscular Hemoglobin Concent 32.5 Red Cell Distribution Width 25.2 H Platelet Count 93 L Mean Platelet Volume Neutrophils % Segmented Neutrophils % (Manual) 87 H Band Neutrophils % (Manual) 6 H Lymphocytes % Lymphocytes % (Manual) 1 L Monocytes % Monocytes % (Manual) 4 Eosinophils % Eosinophils % (Manual) 2 Basophils % Nucleated Red Blood Cells % 0.2 H Neutrophils # Neutrophils # (Manual) 43.5 H Band Neutrophils # 2.9 H Absolute Lymphocytes (Manual) 0.4 L Lymphocytes # Monocytes # Absolute Monocytes (Manual) 1.9 H Eosinophils # Basophils # Nucleated Red Blood Cells # Platelet Estimate DECREASED Polychromasia 1+ Anisocytosis 1+ Target Cells 1+ Medications Medications Current Medications Ondansetron HCl (Zofran Inj) 4 mg Q6H PRN IV NAUSEA AND/OR VOMITING Last administered on 01/03/17 14:52; Admin Dose 4 MG; Start 01/02/17 at 23:00 Rifaximin (Xifaxan) 550 mg BID PO Last administered on 01/26/17 08:52; Admin Dose 550 MG; Start 01/04/17 at 11:00 IV Flush (NS 10 ml) 10 ml PRN PRN IV IV PROTOCOL; Start 01/05/17 at 18:30 Prednisolone (Prelone (Ped)) 40 mg DAILY PO Last administered on 01/26/17 08: 52; Admin Dose 40 MG; Start 01/12/17 at 09:00 Citric Acid/ Sodium Citrate (Bicitra) 30 ml TID NGT Last administered on 08:51; Admin Dose 30 ML; Start 01/12/17 at 09:00 Nystatin 5 ml 5 ml QID PO Last administered on 01/26/17 08:51; Admin Dose 5 ML; Start 01/13/17 at 17:00 Dextrose (D5W) 1,000 ml @ 20 mls/hr Q24H IV Last administered on 01/24/17 13 :01; Admin Dose 20 MLS/HR; Start 01/15/17 at 18:30 Glucose (Glutose) 15 gm Q15M PRN PO DECREASED GLUCOSE; Start 01/15/17 at 18:30 Glucose (Glutose) 22.5 gm Q15M PRN PO DECREASED GLUCOSE; Start 01/15/17 at 18: 30 Dextrose (D50w Syringe) 25 ml Q15M PRN IV DECREASED GLUCOSE; Start 01/15/17 at 18:30 Dextrose (D50w Syringe) 50 ml Q15M PRN IV DECREASED GLUCOSE; Start 01/15/17 at 18:30 Glucagon (Glucagen) 1 mg Q15M PRN IM DECREASED GLUCOSE; Start 01/15/17 at 18:30 Glucose (Glutose) 15 gm Q15M PRN BUCCAL DECREASED GLUCOSE; Start 01/15/17 at 18 :30 Pentoxifylline (Trental) 400 mg DAILY PO Last administered on 01/26/17 08:52 ; Admin Dose 400 MG; Start 01/18/17 at 14:00 Famotidine (Pepcid Iv) 20 mg Q12 IV Last administered on 01/26/17 08:51; Admin Dose 20 MG; Start 01/20/17 at 09:00 Diazepam (Valium) 10 mg BID PRN PO ANXIETY Last administered on 01/24/17 13: 55; Admin Dose 10 MG; Start 01/20/17 at 11:00 Lactulose (Enulose) 20 gm BID PO Last administered on 01/26/17 08:51; Admin Dose 20 GM; Start 01/20/17 at 21:00 Lorazepam (Ativan) 0.5 mg TID PO Last administered on 01/26/17 08:53; Admin Dose 0.5 MG; Start 01/20/17 at 21:00 Morphine Sulfate (morphine) 1 mg Q4H PRN IM PAIN; Start 01/23/17 at 10:00 Morphine Sulfate (morphine) 1 mg Q6 PRN IV pain Last administered on 13:58; Admin Dose 1 MG; Start 01/23/17 at 10:00 Folic Acid (Folic Acid) 1 mg DAILY PO Last administered on 01/26/17 08:52; Admin Dose 1 MG; Start 01/26/17 at 09:00 Thiamine HCl (Vitamin B1) 100 mg DAILY PO Last administered on 01/26/17 08:52 ; Admin Dose 100 MG; Start 01/26/17 at 09:00 Multivit/Ca Carb/ B Cmplx/FA/Prenat 1 tab 1 tab DAILY PO Last administered on 01/26/17 08:52; Admin Dose 1 TAB; Start 01/26/17 at 09:00 Ceftriaxone Sodium (Rocephin) 50 ml @ 100 mls/hr Q24H IVPB Last administered on 01/25/17 18:42; Admin Dose 100 MLS/HR; Start 01/25/17 at 18:00 NERI MCKEON Jan 26, 2017 11:37
--- NOTE | 2017-01-26 12:05 | PN ---
DATE: 01/26/2017 PULMONARY PROGRESS NOTE The patient's condition is gradually improving. Patient's mental status also is improving. He has chills; however, having slurred speech, but the patient is completely awake and answering questions appropriately. PHYSICAL EXAMINATION: GENERAL: Young male, awake, alert, currently in no distress. VITAL SIGNS: Temperature 98 degrees Fahrenheit, respiratory rate is 18 per minute, heart rate 80 pe r minute, blood pressure 110/70, O2 sat 95% on room air. HEENT: Supple neck, no JVD, no lymphadenopathy, midline trachea, no thyromegaly. Patient has fair dentition. No active oral bleeding seen. The patient remains strongly icteric. CHEST: Clear to auscultation. HEART: S1, S2 audible. No murmurs, regular rhythm. ABDOMEN: Soft, nondistended. Bowel sounds audible, no organomegaly. EXTREMITIES: No edema. CENTRAL NERVOUS SYSTEM: No focal deficit. LABORATORY DATA: White count is 48.4, hemoglobin 9.3, platelet count of 93,000. Sodium 147, potass ium 3.9, chloride 111, bicarb 28, glucose of 99, BUN 57, creatinine 1.8. MEDICATIONS: 1. Rocephin 1 gram IV daily. 2. D5 20 mL per hour. 3. TPN. 4. Folic acid 1 mg a day. 5. Lactulose 20 grams b.i.d. 6. Ativan 0.5 mg b.i.d. 7. Morphine on a p.r.n. basis. 8. Prednisone 40 mg daily. 9. Rifaximin 550 mg b.i.d. 10. Thiamine 100 mg daily. ASSESSMENT AND PLAN: 1. Patient admitted with acute hepatic encephalopathy due to alcoholic cirrhosis, status post extub ation several days ago with continually improving overall clinical status. 2. Hepatorenal syndrome with stable renal function. 3. Upper gastrointestinal bleed, status post esophagogastroduodenoscopy from gastritis with stable hematocrit. 4. Improving thrombocytopenia. 5. Acute pancreatitis. 6. Persistent leukocytosis. 7. Persistent severe hyperbilirubinemia. 8. Patient underwent repeat paracentesis yesterday, 2.2 liters of fluid was removed. RECOMMENDATIONS: Continue current supportive care. Further recommendations per GI wealth management consultant. Dictated By: NERI MCKEON MD AQ/NTS Conf#: [id number] [facility]#: [id number]
--- NOTE | 2017-01-26 13:17 | CONS ---
Date/Time of Note Date/Time of Note DATE: 01/26/17 TIME: 13:08 Consult Date/Type/Reason Admit Date/Time Jan 02, 2017 at 19:30 Initial Consult Date 01/07/17 Type of Consultation: id Ordering Provider: BRAEDEN LUNSFORD MD Objective Vital Signs Date Time Temp Pulse Resp B/P Pulse Ox O2 Delivery O2 Flow Rate FiO2 01/26/17 07:52 98.0 82 20 114/67 95 Intake and Output 01/25/17 01/25/17 01/26/17 15:00 23:00 07:00 Intake Total 425 ml 590 ml 340 ml Output Total 1900 ml Balance 425 ml -1310 ml 340 ml Results/Medications Result Diagram: 01/26/17 0733 01/26/17 0730 Results 24 hrs Laboratory Tests Test 01/25/17 14:50 01/26/17 07:30 01/26/17 07:33 Body Fluid Type ASCITIES FLUID Body Fluid Volume 1000.0 Body Fluid Color ORANGE Body Fluid Appearance CLOUDY Body Fluid WBC 461 Body Fluid RBC (Auto) 25 Body Fluid Polynuclear WBCs (%) 62.4 Body Fluid Mononuclear Cells % Auto 37.6 Body Fluid Lactate Dehydrogenase 388 Sodium Level 147 H Potassium Level 3.9 Chloride Level 111 H Carbon Dioxide Level 28 Anion Gap 12 Blood Urea Nitrogen 57 H Creatinine 1.83 H Glucose Level 99 Calcium Level 8.9 Total Bilirubin 28.4 H Direct Bilirubin 25.40 *H Indirect Bilirubin 3.0 H Aspartate Amino Transf (AST/SGOT) 184 H Alanine Aminotransferase (ALT/SGPT) 73 H Alkaline Phosphatase 508 H Total Protein 6.6 Albumin 2.4 L Globulin 4.20 H Albumin/Globulin Ratio 0.57 White Blood Count 48.4 H Red Blood Count 2.66 L Hemoglobin 9.3 L Hematocrit 28.6 L Mean Corpuscular Volume 107.5 H Mean Corpuscular Hemoglobin 35.0 H Mean Corpuscular Hemoglobin Concent 32.5 Red Cell Distribution Width 25.2 H Platelet Count 93 L Mean Platelet Volume Neutrophils % Segmented Neutrophils % (Manual) 87 H Band Neutrophils % (Manual) 6 H Lymphocytes % Lymphocytes % (Manual) 1 L Monocytes % Monocytes % (Manual) 4 Eosinophils % Eosinophils % (Manual) 2 Basophils % Nucleated Red Blood Cells % 0.2 H Neutrophils # Neutrophils # (Manual) 43.5 H Band Neutrophils # 2.9 H Absolute Lymphocytes (Manual) 0.4 L Lymphocytes # Monocytes # Absolute Monocytes (Manual) 1.9 H Eosinophils # Basophils # Nucleated Red Blood Cells # Platelet Estimate DECREASED Polychromasia 1+ Anisocytosis 1+ Target Cells 1+ Medications Current Medications Ondansetron HCl (Zofran Inj) 4 mg Q6H PRN IV NAUSEA AND/OR VOMITING Last administered on 01/03/17 14:52; Admin Dose 4 MG; Start 01/02/17 at 23:00 Rifaximin (Xifaxan) 550 mg BID PO Last administered on 01/26/17 08:52; Admin Dose 550 MG; Start 01/04/17 at 11:00 IV Flush (NS 10 ml) 10 ml PRN PRN IV IV PROTOCOL; Start 01/05/17 at 18:30 Prednisolone (Prelone (Ped)) 40 mg DAILY PO Last administered on 01/26/17 08: 52; Admin Dose 40 MG; Start 01/12/17 at 09:00 Citric Acid/ Sodium Citrate (Bicitra) 30 ml TID NGT Last administered on 12:25; Admin Dose 30 ML; Start 01/12/17 at 09:00 Nystatin 5 ml 5 ml QID PO Last administered on 01/26/17 12:25; Admin Dose 5 ML; Start 01/13/17 at 17:00 Dextrose (D5W) 1,000 ml @ 20 mls/hr Q24H IV Last administered on 01/24/17 13 :01; Admin Dose 20 MLS/HR; Start 01/15/17 at 18:30 Glucose (Glutose) 15 gm Q15M PRN PO DECREASED GLUCOSE; Start 01/15/17 at 18:30 Glucose (Glutose) 22.5 gm Q15M PRN PO DECREASED GLUCOSE; Start 01/15/17 at 18: 30 Dextrose (D50w Syringe) 25 ml Q15M PRN IV DECREASED GLUCOSE; Start 01/15/17 at 18:30 Dextrose (D50w Syringe) 50 ml Q15M PRN IV DECREASED GLUCOSE; Start 01/15/17 at 18:30 Glucagon (Glucagen) 1 mg Q15M PRN IM DECREASED GLUCOSE; Start 01/15/17 at 18:30 Glucose (Glutose) 15 gm Q15M PRN BUCCAL DECREASED GLUCOSE; Start 01/15/17 at 18 :30 Pentoxifylline (Trental) 400 mg DAILY PO Last administered on 01/26/17 08:52 ; Admin Dose 400 MG; Start 01/18/17 at 14:00 Famotidine (Pepcid Iv) 20 mg Q12 IV Last administered on 01/26/17 08:51; Admin Dose 20 MG; Start 01/20/17 at 09:00 Diazepam (Valium) 10 mg BID PRN PO ANXIETY Last administered on 01/24/17 13: 55; Admin Dose 10 MG; Start 01/20/17 at 11:00 Lactulose (Enulose) 20 gm BID PO Last administered on 01/26/17 08:51; Admin Dose 20 GM; Start 01/20/17 at 21:00 Lorazepam (Ativan) 0.5 mg TID PO Last administered on 01/26/17 12:25; Admin Dose 0.5 MG; Start 01/20/17 at 21:00 Morphine Sulfate (morphine) 1 mg Q4H PRN IM PAIN; Start 01/23/17 at 10:00 Morphine Sulfate (morphine) 1 mg Q6 PRN IV pain Last administered on 13:58; Admin Dose 1 MG; Start 01/23/17 at 10:00 Folic Acid (Folic Acid) 1 mg DAILY PO Last administered on 01/26/17 08:52; Admin Dose 1 MG; Start 01/26/17 at 09:00 Thiamine HCl (Vitamin B1) 100 mg DAILY PO Last administered on 01/26/17 08:52 ; Admin Dose 100 MG; Start 01/26/17 at 09:00 Multivit/Ca Carb/ B Cmplx/FA/Prenat 1 tab 1 tab DAILY PO Last administered on 01/26/17 08:52; Admin Dose 1 TAB; Start 01/26/17 at 09:00 Ceftriaxone Sodium (Rocephin) 50 ml @ 100 mls/hr Q24H IVPB Last administered on 01/25/17 18:42; Admin Dose 100 MLS/HR; Start 01/25/17 at 18:00 Assessment/Plan Chief Complaint/Hosp Course SUBJECTIVE: No events overnight per report. No fevers. The patient is sleeping. As per report, still confused. No vomiting, no diarrhea. Looks comfortable. INDWELLINGS: The patient has a left upper extremity PICC line and rectal tube. PHYSICAL EXAMINATION: GENERAL: Chronically ill-appearing, middle-aged man who is in no distress. HEENT: Head atraumatic, normocephalic. Sclerae anicteric. Buccal mucosa dry. NECK: Supple, trachea midline. CHEST: Rise symmetrical. Breath sounds diminished to bases. HEART: S1, S2. ABDOMEN: Distended, soft. Bowel tones hypoactive. EXTREMITIES: With trace edema. ASSESSMENT: 1. Persistent leukocytosis secondary to acute pancreatitis and also steroid induced, r/o SBP. 2. Hepatic encephalopathy. 3. Alcoholic liver disease. 4. Recurrent ascites, status post paracentesis on admission, ==> repeated yesterday. 5. Acute renal failure, improving. 6. Hepatic encephalopathy. 7. Status post septic shock. PLAN: Remains stable, no fevers. Started on Rocephin per GI ?concern for SBP, will change to Cefepime and add antifungal coverage with Cancidas, f/u fluid cx , continue aspiration precautions Problems: ROSALIA BARKER NP Jan 26, 2017 13:17
[2017-01-26 13:46] VITALS: BP 132/77; RESP 18
--- NOTE | 2017-01-26 13:57 | PN ---
Date/Time of Note Date/Time of Note DATE: 01/26/17 TIME: 13:51 Assessment/Plan Lines/Catheters IV Catheter Type (from [facility]): PICC Line Minaya in Place (from [facility]): No Assessment/Plan Chief Complaint/Hosp Course 1. Paralytic ileus 2nd acute processes. SBFT negative. Improved; +bowel function -Monitor 2. Acute on chronic alcoholic pancreatitis with peripancreatic fluid: CT: worsened pancreatitis -antimicrobials -Supportive measures -Judicious fluid management -Trend labs -Encourage cessation 3. Acute GI bleed from gastritis and esophageal varices secondary to alcoholism. Stable -Transfuse as needed -Supportive measures: ppi -Correct coagulopathy and platelet dysfunction 4. Anemia secondary to above: h/h stable -As above 5. Leukocytosis, multifactorial with SIRS and steroid therapy, ? infectious( pl. effusions, atelectasis vs. pna +/- pancreatitis-worsened on CT; ?sbp); -Close monitoring -follow ascitic fluid studies 6. Alcoholic hepatitis with hepatosplenomegaly; elevated LFT's -Medical and GI optimization 7. Chronic alcohol abuse with Delirium Tremens; no tremors -Encourage cessation -Sedation/intubation 8. Subcapsular liver collection possible hematoma versus other -Monitor 9. Electrolyte imbalance -Correct with replacements and fluid management 10. Alcohol withdrawal with tachypnea, tachycardia and delirium tremens; improved -supportive 11. NICOLAS: output improving. improving -judicious fluids -avoid nephrotoxic meds 12. Atelectasis vs. pna -IS -increase activity-OOB as tolerated; PT Thank you. Patient seen and examined in collaboration with Dr. Bob Tristan. Problems: Subjective 24 Hr Interval Summary Continues to be confused. Leukocytosis worsened. Up with PT. No fevers, chills, sob, congested cough. + bowel function. s/p paracentesis yesterday. Exam/Review of Systems Vital Signs Vitals Vital Signs Date Time Temp Pulse Resp B/P Pulse Ox O2 Delivery O2 Flow Rate FiO2 01/26/17 13:46 97.9 87 18 132/77 96 Intake and Output 01/25/17 01/25/17 01/26/17 15:00 23:00 07:00 Intake Total 425 ml 590 ml 340 ml Output Total 1900 ml Balance 425 ml -1310 ml 340 ml Exam Free Text/Dictation Constitutional: Confused Not oriented. more alert Psych: No nl mood/affect Head: atraumatic, normocephalic, No hematomas, No lacerations Eyes: EOMI, PERRL, icteric ENMT: nl external ears & nose, nl lips & teeth. Mucosa pink and dry. icteric Neck: non-tender, supple, No jvd Respiratory: No congested cough, No labored breathing Cardiovascular: No edema, No regular rate and rhythm Gastrointestinal: soft, min-tender, less distended. No rebound or guarding; rectal tube with +gas/bm Musculoskeletal: nl extremities to inspection, No joint tenderness; BLE edema Extremities: normal pulses, No calf tenderness, No cyanosis Neurological: Responsive Skin: rash or lesions (Jaundice), No diaphoresis, No nl turgor : minaya with luis output (improved; increased amount) Lymph: nl lymph nodes, nontender Results Result Diagram: 01/26/17 0733 01/26/17 0730 ELIO GIBBONS NP Jan 26, 2017 13:57
[2017-01-26] MEDS ORDERED: CASPOFUNGIN 70 MG in SOD CHLORIDE 0.9% 250 ML IVPB ONE (14:30)
[2017-01-26] MEDS: DEXTROSE 5% 1,000 ML IV SCH (15:01)
[2017-01-26] MEDS: morphine 2 MG INJ IV PRN (16:24)
--- NOTE | 2017-01-26 17:43 | PN ---
Date/Time of Note Date/Time of Note DATE: 01/26/17 TIME: 17:38 Assessment/Plan VTE Prophylaxis VTE Prophylaxis Intervention: other Lines/Catheters [facility] ([facility] PICC Line Central line still needed: Yes Urinary Cath still in place: No Assessment/Plan Chief Complaint/Hosp Course # Acute on chronic liver failure likely Etoh abuse with elevated INR, Hyperbilirubenemia, low platelets, # Hepatic encephalopathy # ETOH withdrawal S/P # ETOH pancreatitis now sbp # Non Gap Acidosis likely combination of renal failure and diarrhoea # Leukocytosis could be pancreatitis vs Alcholic hepatitis AND SBP # Hypoxic Respiratory failure s/p extubated on 01/15 # Thrombocytopenia # Anemia # s/P EGD with gastritis # Ileus s/p Small bowel follow thru which is negative, eating ok SBP PLAN TPN TAPER CK LABS albumin iv fluid NEED REHAB PT OT ANTIBIOTIC Problems: Subjective 24 Hr Interval Summary Subjective hx not possible: other (still confused) Respiratory: no complaints Cardiovascular: no complaints Exam/Review of Systems Vital Signs Vitals Vital Signs Date Time Temp Pulse Resp B/P Pulse Ox O2 Delivery O2 Flow Rate FiO2 01/26/17 13:46 97.9 87 18 132/77 96 Intake and Output 01/25/17 01/25/17 01/26/17 15:00 23:00 07:00 Intake Total 425 ml 590 ml 340 ml Output Total 1900 ml Balance 425 ml -1310 ml 340 ml Exam Respiratory: clear to auscultation Cardiovascular: regular rate and rhythm Gastrointestinal: ascites (+), bowel sounds (+), soft Extremities: edema (tr) Results Result Diagram: 01/26/17 0733 01/26/17 0730 Results 24 hrs Laboratory Tests Test 01/26/17 07:30 01/26/17 07:33 Sodium Level 147 H Potassium Level 3.9 Chloride Level 111 H Carbon Dioxide Level 28 Anion Gap 12 Blood Urea Nitrogen 57 H Creatinine 1.83 H Glucose Level 99 Calcium Level 8.9 Total Bilirubin 28.4 H Direct Bilirubin 25.40 *H Indirect Bilirubin 3.0 H Aspartate Amino Transf (AST/SGOT) 184 H Alanine Aminotransferase (ALT/SGPT) 73 H Alkaline Phosphatase 508 H Total Protein 6.6 Albumin 2.4 L Globulin 4.20 H Albumin/Globulin Ratio 0.57 White Blood Count 48.4 H Red Blood Count 2.66 L Hemoglobin 9.3 L Hematocrit 28.6 L Mean Corpuscular Volume 107.5 H Mean Corpuscular Hemoglobin 35.0 H Mean Corpuscular Hemoglobin Concent 32.5 Red Cell Distribution Width 25.2 H Platelet Count 93 L Mean Platelet Volume Neutrophils % Segmented Neutrophils % (Manual) 87 H Band Neutrophils % (Manual) 6 H Lymphocytes % Lymphocytes % (Manual) 1 L Monocytes % Monocytes % (Manual) 4 Eosinophils % Eosinophils % (Manual) 2 Basophils % Nucleated Red Blood Cells % 0.2 H Neutrophils # Neutrophils # (Manual) 43.5 H Band Neutrophils # 2.9 H Absolute Lymphocytes (Manual) 0.4 L Lymphocytes # Monocytes # Absolute Monocytes (Manual) 1.9 H Eosinophils # Basophils # Nucleated Red Blood Cells # Platelet Estimate DECREASED Polychromasia 1+ Anisocytosis 1+ Target Cells 1+ Medications Medications Current Medications Ondansetron HCl (Zofran Inj) 4 mg Q6H PRN IV NAUSEA AND/OR VOMITING Last administered on 01/03/17 14:52; Admin Dose 4 MG; Start 01/02/17 at 23:00 Rifaximin (Xifaxan) 550 mg BID PO Last administered on 01/26/17 08:52; Admin Dose 550 MG; Start 01/04/17 at 11:00 IV Flush (NS 10 ml) 10 ml PRN PRN IV IV PROTOCOL; Start 01/05/17 at 18:30 Prednisolone (Prelone (Ped)) 40 mg DAILY PO Last administered on 01/26/17 08: 52; Admin Dose 40 MG; Start 01/12/17 at 09:00 Citric Acid/ Sodium Citrate (Bicitra) 30 ml TID NGT Last administered on 12:25; Admin Dose 30 ML; Start 01/12/17 at 09:00 Nystatin 5 ml 5 ml QID PO Last administered on 01/26/17 16:25; Admin Dose 5 ML; Start 01/13/17 at 17:00 Dextrose (D5W) 1,000 ml @ 20 mls/hr Q24H IV Last administered on 01/24/17 13 :01; Admin Dose 20 MLS/HR; Start 01/15/17 at 18:30 Glucose (Glutose) 15 gm Q15M PRN PO DECREASED GLUCOSE; Start 01/15/17 at 18:30 Glucose (Glutose) 22.5 gm Q15M PRN PO DECREASED GLUCOSE; Start 01/15/17 at 18: 30 Dextrose (D50w Syringe) 25 ml Q15M PRN IV DECREASED GLUCOSE; Start 01/15/17 at 18:30 Dextrose (D50w Syringe) 50 ml Q15M PRN IV DECREASED GLUCOSE; Start 01/15/17 at 18:30 Glucagon (Glucagen) 1 mg Q15M PRN IM DECREASED GLUCOSE; Start 01/15/17 at 18:30 Glucose (Glutose) 15 gm Q15M PRN BUCCAL DECREASED GLUCOSE; Start 01/15/17 at 18 :30 Pentoxifylline (Trental) 400 mg DAILY PO Last administered on 01/26/17 08:52 ; Admin Dose 400 MG; Start 01/18/17 at 14:00 Famotidine (Pepcid Iv) 20 mg Q12 IV Last administered on 01/26/17 08:51; Admin Dose 20 MG; Start 01/20/17 at 09:00 Diazepam (Valium) 10 mg BID PRN PO ANXIETY Last administered on 01/24/17 13: 55; Admin Dose 10 MG; Start 01/20/17 at 11:00 Lactulose (Enulose) 20 gm BID PO Last administered on 01/26/17 08:51; Admin Dose 20 GM; Start 01/20/17 at 21:00 Lorazepam (Ativan) 0.5 mg TID PO Last administered on 01/26/17 12:25; Admin Dose 0.5 MG; Start 01/20/17 at 21:00 Morphine Sulfate (morphine) 1 mg Q4H PRN IM PAIN; Start 01/23/17 at 10:00 Morphine Sulfate (morphine) 1 mg Q6 PRN IV pain Last administered on 16:24; Admin Dose 1 MG; Start 01/23/17 at 10:00 Folic Acid (Folic Acid) 1 mg DAILY PO Last administered on 01/26/17 08:52; Admin Dose 1 MG; Start 01/26/17 at 09:00 Thiamine HCl (Vitamin B1) 100 mg DAILY PO Last administered on 01/26/17 08:52 ; Admin Dose 100 MG; Start 01/26/17 at 09:00 Multivit/Ca Carb/ B Cmplx/FA/Prenat 1 tab 1 tab DAILY PO Last administered on 01/26/17t 08:52; Admin Dose 1 TAB; Start 01/26/17 at 09:00 Cefepime HCl 50 ml @ 100 mls/hr Q24H IVPB ; Start 01/26/17 at 21:00 Caspofungin/ Sodium Chloride (Cancidas/NS) 250 ml @ 250 mls/hr Q24H IVPB ; Start 01/27/17 at 13:30 JAYME BANSAL MD Jan 26, 2017 17:43
[2017-01-26 19:33] VITALS: BP 117/56; RESP 16
[2017-01-26] MEDS: CEFEPIME 1GM/50 ML (PMX) 50 ML IVPB SCH (20:06)
[2017-01-27 05:45] LABS: ABNORMAL IP MESSAGE 1; HEMATOCRIT 27.5 % (42.0-52.0); HEMOGLOBIN 9.3 g/dl (14.0-18.0); MEAN CORPUSCULAR HEMOGLOBIN 36.6 pg (29.0-33.0); MEAN CORPUSCULAR HGB CONC 33.8 g/dl (32.0-37.0); MEAN CORPUSCULAR VOLUME 108.3 fl (82.0-101.0); NUCLEATED RED BLOOD CELLS% 0.1 /100WBC (0.0-0.0); PLATELET COUNT 94 10^3/UL (140-415); POSITIVE DIFF @See below; RED BLOOD COUNT 2.54 10^6/ul (4.70-6.10); RED CELL DISTRIBUTION WIDTH 25.1 % (11.5-14.5); WHITE BLOOD COUNT 48.2 10^3/ul (4.8-10.8)
[2017-01-27 06:14] LABS: ALBUMIN 2.5 g/dl (3.3-4.9); ALBUMIN/GLOBULIN RATIO 0.69; BILIRUBIN,INDIRECT 2.7 mg/dl (0-1.1); CALCIUM 8.5 mg/dl (8.4-10.2); CREATININE 1.76 mg/dl (0.61-1.24); POTASSIUM 3.5 mmol/L (3.5-5.1); TOTAL PROTEIN 6.1 g/dl (6.1-8.1)
[2017-01-27 06:47] LABS: BILIRUBIN,DIRECT 25.9 mg/dl (0.00-0.20); BILIRUBIN,TOTAL 28.6 mg/dl (0.2-1.3)
[2017-01-27 06:56] LABS: ANISOCYTOSIS 2+ (0-0); EOSINOPHILS % (M) 2 % (0-7); HYPOCHROMASIA 1+ (0-0); MONOCYTES % (M) 2 % (0-11); MYELOCYTES % (M) 1 % (0-0); PLATELET ESTIMATE DECREASED; POIKILOCYTOSIS 3+ (0-0); POLYCHROMASIA 3+ (0-0); TARGET CELLS 2+ (0-0)
[2017-01-27 08:00] VITALS: BP 116/59; RESP 16
[2017-01-27] MEDS: LORAZEPAM 0.5 MG TAB PO SCH ×3 (09:12→20:44)
[2017-01-27] MEDS: CITRIC ACID/NA CITRATE 30 ML CUP NGT SCH ×3 (09:14→20:48)
[2017-01-27] MEDS: THIAMINE 100 MG TAB PO SCH (09:14)
[2017-01-27] MEDS: PENTOXIFYLLINE (SR) 400 MG TAB PO SCH (09:14)
[2017-01-27] MEDS: NYSTATIN SUSP 5 ML CUP PO SCH ×4 (09:14→20:43)
[2017-01-27] MEDS: FAMOTIDINE 20 MG INJ IV SCH ×2 (09:14→20:43)
[2017-01-27] MEDS: MULTIVIT/CA CARB/B CMPLX/FA TAB PO SCH (09:14)
[2017-01-27] MEDS: LACTULOSE 30ML CUP PO SCH ×2 (09:14→20:43)
[2017-01-27] MEDS: RIFAXIMIN 550 MG TAB PO SCH ×2 (09:14→20:43)
[2017-01-27] MEDS: FOLIC ACID 1 MG TAB PO SCH (09:14)
[2017-01-27] MEDS: predniSOLONE (3 MG/ML PO SYG) PO SCH (09:14)
[2017-01-27] MEDS: BALSAM PERU/CASTOR OIL 60 GM TUBE TOP SCH ×2 (09:15→20:44)
--- NOTE | 2017-01-27 11:58 | CONS ---
Date/Time of Note Date/Time of Note DATE: 01/27/17 TIME: 11:55 Assessment/Plan Assessment/Plan Additional Assessment/Plan Assessment and recommendations; 1. Patient admitted with severe hepatic enthesopathy due to alcoholic liver disease leading to respiratory failure doing very well overall. 2. Hepatorenal syndrome with continually improving serum creatinine. 3. Anemia. Without any further upper GI bleed. 4. Persistent leukocytosis, etiology is unclear. Patient off antibiotics. 5. Recurrent ascites, status post 2 low volume paracentesis. 6. Marked improvement in mental status. 7. Persistent severe hyperbilirubinemia. Continue current supportive care. Patient improving gradually. Consultation Date/Type/Reason Admit Date/Time Jan 02, 2017 at 19:30 Initial Consult Date 01/07/17 Type of Consultation: Pulmonary Referring Provider: BRAEDEN LUNSFORD MD 24 HR Interval Summary Free Text/Dictation Patient's condition is continually improving. There is continued improvement in mental status. Patient is now having significantly improved speech pattern. He remains awake and alert. Not able to drink liquids and eat semisolids. General exam; young male, awake alert, currently in no distress. Exam/Review of Systems Vital Signs Vitals Vital Signs Date Time Temp Pulse Resp B/P Pulse Ox O2 Delivery O2 Flow Rate FiO2 01/27/17 08:00 97.6 16 116/59 95 Room Air 01/26/17 19:33 84 Intake and Output 01/26/17 01/26/17 01/27/17 14:59 22:59 06:59 Intake Total 800 ml 1020 ml 560 ml Output Total 3000 ml 750 ml Balance -2200 ml 1020 ml -190 ml Exam HEENT exam; supple neck, no JVD. No lymphadenopathy. Midline trachea. No thyromegaly. Pharynx is clear. Patient has multiple carious teeth. Patient remains deeply icteric. Chest exam; clear to auscultation. S1-S2 audible, no murmurs. Regular rhythm. Abdomen exam; soft, nontender. No organomegaly. Bowel sounds are audible. Extremity exam; no peripheral edema. [employer] LEAD exam; patient is awake and alert follows commands and moves all 4 extremities. Able to talk. Results Result Diagram: 01/27/17 0514 01/27/17 0514 Results 24 hrs Laboratory Tests Test 01/27/17 05:14 White Blood Count 48.2 H Red Blood Count 2.54 L Hemoglobin 9.3 L Hematocrit 27.5 L Mean Corpuscular Volume 108.3 H Mean Corpuscular Hemoglobin 36.6 H Mean Corpuscular Hemoglobin Concent 33.8 Red Cell Distribution Width 25.1 H Platelet Count 94 L Mean Platelet Volume Neutrophils % Segmented Neutrophils % (Manual) 82 H Band Neutrophils % (Manual) 9 H Lymphocytes % Lymphocytes % (Manual) 4 L Monocytes % Monocytes % (Manual) 2 Eosinophils % Eosinophils % (Manual) 2 Basophils % Myelocytes % (Manual) 1 H Nucleated Red Blood Cells % 0.1 H Neutrophils # Neutrophils # (Manual) 41.6 H Band Neutrophils # 4.3 H Absolute Lymphocytes (Manual) 1.9 Lymphocytes # Monocytes # Absolute Monocytes (Manual) 0.9 Eosinophils # Basophils # Myelocytes # 0.4 H Nucleated Red Blood Cells # Platelet Estimate DECREASED Polychromasia 3+ Hypochromasia 1+ Poikilocytosis 3+ Anisocytosis 2+ Macrocytosis 2+ Target Cells 2+ Sodium Level 152 H Potassium Level 3.5 Chloride Level 115 H Carbon Dioxide Level 25 Anion Gap 16 Blood Urea Nitrogen 59 H Creatinine 1.76 H Glucose Level 99 Calcium Level 8.5 Total Bilirubin 28.6 H Direct Bilirubin 25.90 *H Indirect Bilirubin 2.7 H Aspartate Amino Transf (AST/SGOT) 126 H Alanine Aminotransferase (ALT/SGPT) 66 Alkaline Phosphatase 507 H Ammonia 31 H Total Protein 6.1 Albumin 2.5 L Globulin 3.60 H Albumin/Globulin Ratio 0.69 Medications Medications Current Medications Ondansetron HCl (Zofran Inj) 4 mg Q6H PRN IV NAUSEA AND/OR VOMITING Last administered on 01/03/17 14:52; Admin Dose 4 MG; Start 01/02/17 at 23:00 Rifaximin (Xifaxan) 550 mg BID PO Last administered on 01/27/17 09:14; Admin Dose 550 MG; Start 01/04/17 at 11:00 IV Flush (NS 10 ml) 10 ml PRN PRN IV IV PROTOCOL; Start 01/05/17 at 18:30 Prednisolone (Prelone (Ped)) 40 mg DAILY PO Last administered on 01/27/17 09: 14; Admin Dose 40 MG; Start 01/12/17 at 09:00 Citric Acid/ Sodium Citrate (Bicitra) 30 ml TID NGT Last administered on 09:14; Admin Dose 30 ML; Start 01/12/17 at 09:00 Nystatin 5 ml 5 ml QID PO Last administered on 01/27/17 09:14; Admin Dose 5 ML; Start 01/13/17 at 17:00 Dextrose (D5W) 1,000 ml @ 20 mls/hr Q24H IV Last administered on 01/26/17 15 :01; Admin Dose 20 MLS/HR; Start 01/15/17 at 18:30 Glucose (Glutose) 15 gm Q15M PRN PO DECREASED GLUCOSE; Start 01/15/17 at 18:30 Glucose (Glutose) 22.5 gm Q15M PRN PO DECREASED GLUCOSE; Start 01/15/17 at 18: 30 Dextrose (D50w Syringe) 25 ml Q15M PRN IV DECREASED GLUCOSE; Start 01/15/17 at 18:30 Dextrose (D50w Syringe) 50 ml Q15M PRN IV DECREASED GLUCOSE; Start 01/15/17 at 18:30 Glucagon (Glucagen) 1 mg Q15M PRN IM DECREASED GLUCOSE; Start 01/15/17 at 18:30 Glucose (Glutose) 15 gm Q15M PRN BUCCAL DECREASED GLUCOSE; Start 01/15/17 at 18 :30 Pentoxifylline (Trental) 400 mg DAILY PO Last administered on 01/27/17 09:14 ; Admin Dose 400 MG; Start 01/18/17 at 14:00 Famotidine (Pepcid Iv) 20 mg Q12 IV Last administered on 01/27/17 09:14; Admin Dose 20 MG; Start 01/20/17 at 09:00 Diazepam (Valium) 10 mg BID PRN PO ANXIETY Last administered on 01/24/17 13: 55; Admin Dose 10 MG; Start 01/20/17 at 11:00 Lactulose (Enulose) 20 gm BID PO Last administered on 01/27/17 09:14; Admin Dose 20 GM; Start 01/20/17 at 21:00 Lorazepam (Ativan) 0.5 mg TID PO Last administered on 01/27/17 09:12; Admin Dose 0.5 MG; Start 01/20/17 at 21:00 Morphine Sulfate (morphine) 1 mg Q4H PRN IM PAIN; Start 01/23/17 at 10:00 Morphine Sulfate (morphine) 1 mg Q6 PRN IV pain Last administered on 16:24; Admin Dose 1 MG; Start 01/23/17 at 10:00 Folic Acid (Folic Acid) 1 mg DAILY PO Last administered on 01/27/17 09:14; Admin Dose 1 MG; Start 01/26/17 at 09:00 Thiamine HCl (Vitamin B1) 100 mg DAILY PO Last administered on 01/27/17 09:14 ; Admin Dose 100 MG; Start 01/26/17 at 09:00 Multivit/Ca Carb/ B Cmplx/FA/Prenat 1 tab 1 tab DAILY PO Last administered on 01/27/17 09:14; Admin Dose 1 TAB; Start 01/26/17 at 09:00 Cefepime HCl 50 ml @ 100 mls/hr Q24H IVPB Last administered on 01/26/17 20: 06; Admin Dose 100 MLS/HR; Start 01/26/17 at 21:00 Caspofungin/ Sodium Chloride (Cancidas/NS) 250 ml @ 250 mls/hr Q24H IVPB ; Start 01/27/17 at 13:30 NERI MCKEON Jan 27, 2017 11:58
[2017-01-27 14:00] VITALS: BP 125/70; RESP 18
--- NOTE | 2017-01-27 14:03 | PN ---
DATE: 01/27/2017 SUBJECTIVE: Patient had been stable overnight. No fevers. He is still confused but in no distress . VITAL SIGNS: Temperature 97.6, pulse 84, respirations 16, blood pressure 116/59, saturation 95 on r oom air. WBC 48.2, H and H 9.3 and 27.5, platelets 94, bands 9. BUN 59, creatinine 1.76. ANTIMICROBIALS: Cefepime, Cancidas. PHYSICAL EXAMINATION: GENERAL: Well-developed, ill-appearing, middle-aged man who is in no distress. HEENT: Head atraumatic, normocephalic. Sclerae anicteric. Buccal mucosa dry. NECK: Supple. CHEST: Rise symmetrical. Breath sounds diminished to bases. HEART: S1, S2. ABDOMEN: Distended, soft. Bowel tones present. EXTREMITIES: With trace edema. ASSESSMENT: 1. Persistent leukocytosis, possibly secondary to steroids, rule out infectious process, rule out s pontaneous bacterial peritonitis. The patient is status post thoracentesis 2 days ago with fluid. White blood cell count 461 and LDH of 388, no cultures sent. 2. Acute pancreatitis. 3. Decompensated liver cirrhosis. 4. Hepatic encephalopathy. 5. Acute renal failure. 6. Recurrent ascites. 7. Status post septic shock and respiratory failure. PLAN: We are going to add doxycycline to the regimen to cover gram positive bacteria. Continue cef epime and Cancidas. Continue anti-aspiration measures. The patient had blood cultures on 7 that were negative. Stool for Clostridium difficile was negative as well. Dictated By: ROSALIA BARKER RECORDS CLERK for MADELAINE PLASENCIA/JACQUELINE Conf#: [id number] DID#: [id number]
[2017-01-27] MEDS: CASPOFUNGIN 35 MG in SOD CHLORIDE 0.9% 250 ML IVPB SCH (14:18)
[2017-01-27] MEDS: DOXYCYCLINE 100 MG in SOD CHLORIDE 0.9% 250 ML IVPB SCH ×2 (16:03→23:30)
--- NOTE | 2017-01-27 17:39 | PN ---
Date/Time of Note Date/Time of Note DATE: 01/27/17 TIME: 17:36 Assessment/Plan VTE Prophylaxis VTE Prophylaxis Intervention: other Lines/Catheters IV [facility] PICC Line Central line still needed: Yes Urinary Cath still in place: No Assessment/Plan Chief Complaint/Hosp Course # Acute on chronic liver failure likely Etoh abuse with elevated INR, Hyperbilirubenemia, low platelets, # Hepatic encephalopathy # ETOH withdrawal S/P # ETOH pancreatitis now sbp # Non Gap Acidosis likely combination of renal failure and diarrhoea # Leukocytosis could be pancreatitis vs Alcholic hepatitis AND SBP # Hypoxic Respiratory failure s/p extubated on 01/15 # Thrombocytopenia # Anemia # s/P EGD with gastritis # Ileus s/p Small bowel follow thru which is negative, eating ok SBP HYPERNATREMIA PLAN CK LABS iv fluid NEED REHAB PT OT ANTIBIOTIC Problems: Subjective 24 Hr Interval Summary Subjective hx not possible: other (AWAKE AND ALERT BUT CONFUSED AT TIMES) Respiratory: no complaints Cardiovascular: no complaints Exam/Review of Systems Vital Signs Vitals Vital Signs Date Time Temp Pulse Resp B/P Pulse Ox O2 Delivery O2 Flow Rate FiO2 01/27/17 14:00 97.7 18 125/70 Room Air 01/27/17 08:00 95 01/26/17 19:33 84 Intake and Output 01/26/17 01/26/17 01/27/17 15:00 23:00 07:00 Intake Total 1240 ml 580 ml 560 ml Output Total 3000 ml 750 ml Balance -1760 ml 580 ml -190 ml Exam Neck: supple Respiratory: clear to auscultation Cardiovascular: regular rate and rhythm Gastrointestinal: bowel sounds (+), soft Extremities: edema (+) Results Result Diagram: 01/27/17 0514 01/27/17 0514 Results 24 hrs Laboratory Tests Test 01/27/17 05:14 White Blood Count 48.2 H Red Blood Count 2.54 L Hemoglobin 9.3 L Hematocrit 27.5 L Mean Corpuscular Volume 108.3 H Mean Corpuscular Hemoglobin 36.6 H Mean Corpuscular Hemoglobin Concent 33.8 Red Cell Distribution Width 25.1 H Platelet Count 94 L Mean Platelet Volume Neutrophils % Segmented Neutrophils % (Manual) 82 H Band Neutrophils % (Manual) 9 H Lymphocytes % Lymphocytes % (Manual) 4 L Monocytes % Monocytes % (Manual) 2 Eosinophils % Eosinophils % (Manual) 2 Basophils % Myelocytes % (Manual) 1 H Nucleated Red Blood Cells % 0.1 H Neutrophils # Neutrophils # (Manual) 41.6 H Band Neutrophils # 4.3 H Absolute Lymphocytes (Manual) 1.9 Lymphocytes # Monocytes # Absolute Monocytes (Manual) 0.9 Eosinophils # Basophils # Myelocytes # 0.4 H Nucleated Red Blood Cells # Platelet Estimate DECREASED Polychromasia 3+ Hypochromasia 1+ Poikilocytosis 3+ Anisocytosis 2+ Macrocytosis 2+ Target Cells 2+ Sodium Level 152 H Potassium Level 3.5 Chloride Level 115 H Carbon Dioxide Level 25 Anion Gap 16 Blood Urea Nitrogen 59 H Creatinine 1.76 H Glucose Level 99 Calcium Level 8.5 Total Bilirubin 28.6 H Direct Bilirubin 25.90 *H Indirect Bilirubin 2.7 H Aspartate Amino Transf (AST/SGOT) 126 H Alanine Aminotransferase (ALT/SGPT) 66 Alkaline Phosphatase 507 H Ammonia 31 H Total Protein 6.1 Albumin 2.5 L Globulin 3.60 H Albumin/Globulin Ratio 0.69 Medications Medications Current Medications Ondansetron HCl (Zofran Inj) 4 mg Q6H PRN IV NAUSEA AND/OR VOMITING Last administered on 01/03/17 14:52; Admin Dose 4 MG; Start 01/02/17 at 23:00 Rifaximin (Xifaxan) 550 mg BID PO Last administered on 01/27/17 09:14; Admin Dose 550 MG; Start 01/04/17 at 11:00 IV Flush (NS 10 ml) 10 ml PRN PRN IV IV PROTOCOL; Start 01/05/17 at 18:30 Prednisolone (Prelone (Ped)) 40 mg DAILY PO Last administered on 01/27/17 09: 14; Admin Dose 40 MG; Start 01/12/17 at 09:00 Citric Acid/ Sodium Citrate (Bicitra) 30 ml TID NGT Last administered on 14:19; Admin Dose 30 ML; Start 01/12/17 at 09:00 Nystatin 5 ml 5 ml QID PO Last administered on 01/27/17 14:18; Admin Dose 5 ML; Start 01/13/17 at 17:00 Dextrose (D5W) 1,000 ml @ 20 mls/hr Q24H IV Last administered on 01/26/17 15 :01; Admin Dose 20 MLS/HR; Start 01/15/17 at 18:30 Glucose (Glutose) 15 gm Q15M PRN PO DECREASED GLUCOSE; Start 01/15/17 at 18:30 Glucose (Glutose) 22.5 gm Q15M PRN PO DECREASED GLUCOSE; Start 01/15/17 at 18: 30 Dextrose (D50w Syringe) 25 ml Q15M PRN IV DECREASED GLUCOSE; Start 01/15/17 at 18:30 Dextrose (D50w Syringe) 50 ml Q15M PRN IV DECREASED GLUCOSE; Start 01/15/17 at 18:30 Glucagon (Glucagen) 1 mg Q15M PRN IM DECREASED GLUCOSE; Start 01/15/17 at 18:30 Glucose (Glutose) 15 gm Q15M PRN BUCCAL DECREASED GLUCOSE; Start 01/15/17 at 18 :30 Pentoxifylline (Trental) 400 mg DAILY PO Last administered on 01/27/17 09:14 ; Admin Dose 400 MG; Start 01/18/17 at 14:00 Famotidine (Pepcid Iv) 20 mg Q12 IV Last administered on 01/27/17 09:14; Admin Dose 20 MG; Start 01/20/17 at 09:00 Diazepam (Valium) 10 mg BID PRN PO ANXIETY Last administered on 01/24/17 13: 55; Admin Dose 10 MG; Start 01/20/17 at 11:00 Lactulose (Enulose) 20 gm BID PO Last administered on 01/27/17 09:14; Admin Dose 20 GM; Start 01/20/17 at 21:00 Lorazepam (Ativan) 0.5 mg TID PO Last administered on 01/27/17 14:19; Admin Dose 0.5 MG; Start 01/20/17 at 21:00 Morphine Sulfate (morphine) 1 mg Q4H PRN IM PAIN; Start 01/23/17 at 10:00 Morphine Sulfate (morphine) 1 mg Q6 PRN IV pain Last administered on 16:24; Admin Dose 1 MG; Start 01/23/17 at 10:00 Folic Acid (Folic Acid) 1 mg DAILY PO Last administered on 01/27/17 09:14; Admin Dose 1 MG; Start 01/26/17 at 09:00 Thiamine HCl (Vitamin B1) 100 mg DAILY PO Last administered on 01/27/17 09:14 ; Admin Dose 100 MG; Start 01/26/17 at 09:00 Multivit/Ca Carb/ B Cmplx/FA/Prenat 1 tab 1 tab DAILY PO Last administered on 01/27/17 09:14; Admin Dose 1 TAB; Start 01/26/17 at 09:00 Cefepime HCl 50 ml @ 100 mls/hr Q24H IVPB Last administered on 01/26/17 20: 06; Admin Dose 100 MLS/HR; Start 01/26/17 at 21:00 Caspofungin 35 mg/ Sodium Chloride 250 ml @ 250 mls/hr Q24H IVPB Last administered on 01/27/17 14:18; Admin Dose 250 MLS/HR; Start 01/27/17 at 13: 30 Doxycycline Hyclate/Sodium Chloride (Vibramycin/NS) 250 ml @ 250 mls/hr Q12 IVPB Last administered on 01/27/17 16:03; Admin Dose 250 MLS/HR; Start 01/27 at 15:00 JAYME BANSAL MD Jan 27, 2017 17:39
--- NOTE | 2017-01-27 18:26 | CONS ---
Date/Time of Note Date/Time of Note DATE: 01/27/17 TIME: 18:24 Assessment/Plan Assessment/Plan Additional Assessment/Plan Additional Assessment/Plan IMPRESSION: 1. Delirium tremens patient is still shaky unable to stand on his feet and continues to have slurred speech 2. Hepatic encephalopathy. Better patient is now communicating with slurred speech, still confused 3. Alcoholic liver disease. Patient is on prednisolone 4. Pancreatitis. Amylase has come down . Lipase is down 5. Leukocytosis. Persistent most probably related to alcoholic hepatitis and steroid 6. Renal insufficiency. Though the urine output is good. Renal function has improved a lot with good urine output. Creatinine is coming down. 7. Pedal edema resolved 8. Thrombocytopenia better 9. Ileus, small bowel follow-through was negative 10. Patient's gastroparesis might be related to uremia better 11. Hypernatremia 12. Spontaneous bacterial peritonitis. Acetic fluid was cloudy, WBC polymorphs where greater than 250 Plan 1. Continue prednisolone 2. Your liquid diet, advance to solid diet, aspiration precaution 3. Patient is confused at times but more oriented than before 4. Reduce IV fluid since patient is third spacing, may need albumin. 5. Octreotide discontinued 6. We will monitor WBC, INR, total bilirubin, and creatinine on a regular basis 7. I had [id number] discussion with the mother and the family members and also with the insurance rater and sales and events coordinator. 8. And is on pentoxifylline 400 mg once a day 10. Please avoid narcotics and also Ativan patient confusional state is secondary to hepatic encephalopathy 11. Abdominal paracentesis again 2.2 L of fluid removed 12. Physical therapy and discontinue Ativan, patient is unable to stand on his own for a long time. He needs physical therapist support and also a walker to hold on 13. Patient started on pentoxifylline 14. Discontinue Reglan 15. Antibiotics as per ID Consultation Date/Type/Reason Admit Date/Time Jan 02, 2017 at 19:30 Type of Consultation: Pulmonary Referring Provider: BRAEDEN LUNSFORD MD 24 HR Interval Summary Free Text/Dictation Patient still confused and hasa tremor Constitutional: improved Exam/Review of Systems Vital Signs Vitals Vital Signs Date Time Temp Pulse Resp B/P Pulse Ox O2 Delivery O2 Flow Rate FiO2 01/27/17 14:00 97.7 18 125/70 Room Air 01/27/17 08:00 95 01/26/17 19:33 84 Intake and Output 01/26/17 01/26/17 01/27/17 15:00 23:00 07:00 Intake Total 1240 ml 580 ml 560 ml Output Total 3000 ml 750 ml Balance -1760 ml 580 ml -190 ml Exam Cardiovascular: nl pulses, regular rate and rhythm Gastrointestinal: nl liver, spleen, non-tender, soft Musculoskeletal: nl extremities to inspection, nl gait and stance Extremities: normal pulses Neurological: confused, other (Has tremor) Results Result Diagram: 01/27/1714 01/27/1714 Results 24 hrs Laboratory Tests Test 01/27/17 05:14 White Blood Count 48.2 H Red Blood Count 2.54 L Hemoglobin 9.3 L Hematocrit 27.5 L Mean Corpuscular Volume 108.3 H Mean Corpuscular Hemoglobin 36.6 H Mean Corpuscular Hemoglobin Concent 33.8 Red Cell Distribution Width 25.1 H Platelet Count 94 L Mean Platelet Volume Neutrophils % Segmented Neutrophils % (Manual) 82 H Band Neutrophils % (Manual) 9 H Lymphocytes % Lymphocytes % (Manual) 4 L Monocytes % Monocytes % (Manual) 2 Eosinophils % Eosinophils % (Manual) 2 Basophils % Myelocytes % (Manual) 1 H Nucleated Red Blood Cells % 0.1 H Neutrophils # Neutrophils # (Manual) 41.6 H Band Neutrophils # 4.3 H Absolute Lymphocytes (Manual) 1.9 Lymphocytes # Monocytes # Absolute Monocytes (Manual) 0.9 Eosinophils # Basophils # Myelocytes # 0.4 H Nucleated Red Blood Cells # Platelet Estimate DECREASED Polychromasia 3+ Hypochromasia 1+ Poikilocytosis 3+ Anisocytosis 2+ Macrocytosis 2+ Target Cells 2+ Sodium Level 152 H Potassium Level 3.5 Chloride Level 115 H Carbon Dioxide Level 25 Anion Gap 16 Blood Urea Nitrogen 59 H Creatinine 1.76 H Glucose Level 99 Calcium Level 8.5 Total Bilirubin 28.6 H Direct Bilirubin 25.90 *H Indirect Bilirubin 2.7 H Aspartate Amino Transf (AST/SGOT) 126 H Alanine Aminotransferase (ALT/SGPT) 66 Alkaline Phosphatase 507 H Ammonia 31 H Total Protein 6.1 Albumin 2.5 L Globulin 3.60 H Albumin/Globulin Ratio 0.69 Medications Medications Current Medications Ondansetron HCl (Zofran Inj) 4 mg Q6H PRN IV NAUSEA AND/OR VOMITING Last administered on 01/03/17 14:52; Admin Dose 4 MG; Start 01/02/17 at 23:00 Rifaximin (Xifaxan) 550 mg BID PO Last administered on 01/27/17 09:14; Admin Dose 550 MG; Start 01/04/17 at 11:00 IV Flush (NS 10 ml) 10 ml PRN PRN IV IV PROTOCOL; Start 01/05/17 at 18:30 Prednisolone (Prelone (Ped)) 40 mg DAILY PO Last administered on 01/27/17 09: 14; Admin Dose 40 MG; Start 01/12/17 at 09:00 Citric Acid/ Sodium Citrate (Bicitra) 30 ml TID NGT Last administered on 14:19; Admin Dose 30 ML; Start 01/12/17 at 09:00 Nystatin (Nystatin Susp) 5 ml QID PO Last administered on 01/27/17 14:18; Admin Dose 5 ML; Start 01/13/17 at 17:00 Glucose (Glutose) 15 gm Q15M PRN PO DECREASED GLUCOSE; Start 01/15/17 at 18:30 Glucose (Glutose) 22.5 gm Q15M PRN PO DECREASED GLUCOSE; Start 01/15/17 at 18: 30 Dextrose (D50w Syringe) 25 ml Q15M PRN IV DECREASED GLUCOSE; Start 01/15/17 at 18:30 Dextrose (D50w Syringe) 50 ml Q15M PRN IV DECREASED GLUCOSE; Start 01/15/17 at 18:30 Glucagon (Glucagen) 1 mg Q15M PRN IM DECREASED GLUCOSE; Start 01/15/17 at 18:30 Glucose (Glutose) 15 gm Q15M PRN BUCCAL DECREASED GLUCOSE; Start 01/15/17 at 18 :30 Pentoxifylline (Trental) 400 mg DAILY PO Last administered on 01/27/17 09:14 ; Admin Dose 400 MG; Start 01/18/17 at 14:00 Famotidine (Pepcid Iv) 20 mg Q12 IV Last administered on 01/27/17 09:14; Admin Dose 20 MG; Start 01/20/17 at 09:00 Diazepam (Valium) 10 mg BID PRN PO ANXIETY Last administered on 01/24/17 13: 55; Admin Dose 10 MG; Start 01/20/17 at 11:00 Lactulose (Enulose) 20 gm BID PO Last administered on 01/27/17 09:14; Admin Dose 20 GM; Start 01/20/17 at 21:00 Lorazepam (Ativan) 0.5 mg TID PO Last administered on 01/27/17 14:19; Admin Dose 0.5 MG; Start 01/20/17 at 21:00 Morphine Sulfate (morphine) 1 mg Q4H PRN IM PAIN; Start 01/23/17 at 10:00 Morphine Sulfate (morphine) 1 mg Q6 PRN IV pain Last administered on 16:24; Admin Dose 1 MG; Start 01/23/17 at 10:00 Folic Acid (Folic Acid) 1 mg DAILY PO Last administered on 01/27/17 09:14; Admin Dose 1 MG; Start 01/26/17 at 09:00 Thiamine HCl (Vitamin B1) 100 mg DAILY PO Last administered on 01/27/17 09:14 ; Admin Dose 100 MG; Start 01/26/17 at 09:00 Multivit/Ca Carb/ B Cmplx/FA/Prenat 1 tab 1 tab DAILY PO Last administered on 01/27/17 09:14; Admin Dose 1 TAB; Start 01/26/17 at 09:00 Cefepime HCl 50 ml @ 100 mls/hr Q24H IVPB Last administered on 01/26/17 20: 06; Admin Dose 100 MLS/HR; Start 01/26/17 at 21:00 Caspofungin 35 mg/ Sodium Chloride 250 ml @ 250 mls/hr Q24H IVPB Last administered on 01/27/17 14:18; Admin Dose 250 MLS/HR; Start 01/27/17 at 13: 30 Doxycycline Hyclate 100 mg/ Sodium Chloride 250 ml @ 250 mls/hr Q12 IVPB Last administered on 01/27/17 16:03; Admin Dose 250 MLS/HR; Start 01/27/17 at 15: 00 Dextrose (D5W) 1,000 ml @ 60 mls/hr [id number] IV ; Start 01/27/17 at 18:00 LAURA CORDERO MD Jan 27, 2017 18:26
[2017-01-27] MEDS: DEXTROSE 5% 1,000 ML IV SCH (19:00)
[2017-01-27 20:00] VITALS: BP 134/72; RESP 18
--- NOTE | 2017-01-27 20:20 | PN ---
Date/Time of Note Date/Time of Note DATE: 01/27/17 TIME: 20:17 Assessment/Plan Lines/Catheters IV Catheter Type (from [facility]): PICC Line Minaya in Place (from [facility]): No Assessment/Plan Chief Complaint/Hosp Course 1. Paralytic ileus 2nd acute processes. SBFT negative. Improved; +bowel function -Monitor 2. Acute on chronic alcoholic pancreatitis with peripancreatic fluid: CT: worsened pancreatitis -antimicrobials -Supportive measures -Judicious fluid management -Trend labs -Encourage cessation 3. Acute GI bleed from gastritis and esophageal varices secondary to alcoholism. Stable -Transfuse as needed -Supportive measures: ppi -Correct coagulopathy and platelet dysfunction 4. Anemia secondary to above: h/h stable -As above 5. Leukocytosis, multifactorial with SIRS and steroid therapy, ? infectious( pl. effusions, atelectasis vs. pna +/- pancreatitis-worsened on CT; ?sbp); persistent -Close monitoring -follow ascitic fluid studies 6. Alcoholic hepatitis with hepatosplenomegaly; elevated LFT's (improving) -Medical and GI optimization 7. Chronic alcohol abuse with Delirium Tremens; no tremors -Encourage cessation -Sedation/intubation 8. Subcapsular liver collection possible hematoma versus other -Monitor 9. Electrolyte imbalance -Correct with replacements and fluid management 10. Alcohol withdrawal with tachypnea, tachycardia and delirium tremens; improved -supportive 11. NICOLAS: output improving. improving -judicious fluids -avoid nephrotoxic meds 12. Atelectasis vs. pna -IS -increase activity-OOB as tolerated; PT Thank you. Patient seen and examined in collaboration with Dr. Bob Tristan. Problems: Subjective 24 Hr Interval Summary Continues to be confused and labile. Up with PT. Persistent leukocytosis. No fevers, chills, sob, congested cough, n/v/d/dysuria. Exam/Review of Systems Vital Signs Vitals Vital Signs Date Time Temp Pulse Resp B/P Pulse Ox O2 Delivery O2 Flow Rate FiO2 01/27/17 14:00 97.7 18 125/70 Room Air 01/27/17 08:00 95 01/26/17 19:33 84 Intake and Output 01/26/17 01/26/17 01/27/17 15:00 23:00 07:00 Intake Total 1240 ml 580 ml 560 ml Output Total 3000 ml 750 ml Balance -1760 ml 580 ml -190 ml Exam Free Text/Dictation Constitutional: Confused Not oriented. more alert Psych: No nl mood/affect Head: atraumatic, normocephalic, No hematomas, No lacerations Eyes: EOMI, PERRL, icteric ENMT: nl external ears & nose, nl lips & teeth. Mucosa pink and dry. icteric Neck: non-tender, supple, No jvd Respiratory: No congested cough, No labored breathing Cardiovascular: No edema, No regular rate and rhythm Gastrointestinal: soft, min-tender, less distended. No rebound or guarding; rectal tube with +gas/bm Musculoskeletal: nl extremities to inspection, No joint tenderness; BLE edema Extremities: normal pulses, No calf tenderness, No cyanosis Neurological: Responsive Skin: rash or lesions (Jaundice), No diaphoresis, No nl turgor : minaya with luis output (improved; increased amount) Lymph: nl lymph nodes, nontender Results Result Diagram: 01/27/17 0514 01/27/17 0514 ELIO GIBBONS NP Jan 27, 2017 20:20
[2017-01-27] MEDS: CEFEPIME 1GM/50 ML (PMX) 50 ML IVPB SCH (20:44)
[2017-01-28] MEDS: DIAZEPAM 5 MG TAB PO PRN ×2 (01:42→22:01)
[2017-01-28 05:37] LABS: ABNORMAL IP MESSAGE 1; BASOPHIL # 0.1 10^3/ul (0.0-0.1); BASOPHILS % 0.2 % (0.0-2.0); EOSINOPHILS % 0.1 % (0.0-7.0); HEMATOCRIT 25.6 % (42.0-52.0); HEMOGLOBIN 8.7 g/dl (14.0-18.0); LYMPHOCYTES # 1.5 10^3/ul (0.8-2.9); LYMPHOCYTES % 3.3 % (15.0-51.0); MEAN CORPUSCULAR HEMOGLOBIN 36.6 pg (29.0-33.0); MEAN CORPUSCULAR VOLUME 107.6 fl (82.0-101.0); MONOCYTE # 2.8 10^3/ul (0.3-0.9); MONOCYTES % 6.2 % (0.0-11.0); NEUTROPHIL # 38.6 10^3/ul (1.6-7.5); NEUTROPHILS % 86.2 % (39.0-77.0); NUCLEATED RED BLOOD CELLS # 0.1 10^3/ul (0.0-0.0); NUCLEATED RED BLOOD CELLS% 0.1 /100WBC (0.0-0.0); PLATELET COUNT 89 10^3/UL (140-415); POSITIVE DIFF @See below; RED BLOOD COUNT 2.38 10^6/ul (4.70-6.10); RED CELL DISTRIBUTION WIDTH 24.3 % (11.5-14.5); WHITE BLOOD COUNT 44.8 10^3/ul (4.8-10.8)
[2017-01-28 06:23] LABS: ALBUMIN 2.2 g/dl (3.3-4.9); ALBUMIN/GLOBULIN RATIO 0.64; BILIRUBIN,INDIRECT 2.4 mg/dl (0-1.1); BILIRUBIN,TOTAL 26.4 mg/dl (0.2-1.3); CALCIUM 7.8 mg/dl (8.4-10.2); CREATININE 1.76 mg/dl (0.61-1.24); POTASSIUM 3.1 mmol/L (3.5-5.1); TOTAL PROTEIN 5.6 g/dl (6.1-8.1)
[2017-01-28 08:10] VITALS: BP 127/70; RESP 18
[2017-01-28] MEDS: CITRIC ACID/NA CITRATE 30 ML CUP NGT SCH ×3 (09:15→22:00)
[2017-01-28] MEDS: LACTULOSE 30ML CUP PO SCH ×2 (09:15→21:59)
[2017-01-28] MEDS: LORAZEPAM 0.5 MG TAB PO SCH ×2 (09:15→13:18)
[2017-01-28] MEDS: NYSTATIN SUSP 5 ML CUP PO SCH ×4 (09:15→21:59)
[2017-01-28] MEDS: MULTIVIT/CA CARB/B CMPLX/FA TAB PO SCH (09:15)
[2017-01-28] MEDS: DOXYCYCLINE 100 MG in SOD CHLORIDE 0.9% 250 ML IVPB SCH ×2 (09:15→22:09)
[2017-01-28] MEDS: FAMOTIDINE 20 MG INJ IV SCH (09:16)
[2017-01-28] MEDS: FOLIC ACID 1 MG TAB PO SCH (09:16)
[2017-01-28] MEDS: PENTOXIFYLLINE (SR) 400 MG TAB PO SCH (09:19)
[2017-01-28] MEDS: THIAMINE 100 MG TAB PO SCH (09:19)
[2017-01-28] MEDS: RIFAXIMIN 550 MG TAB PO SCH ×2 (09:19→21:59)
[2017-01-28] MEDS: BALSAM PERU/CASTOR OIL 60 GM TUBE TOP SCH ×2 (09:20→22:00)
[2017-01-28] MEDS: predniSOLONE (3 MG/ML PO SYG) PO SCH (09:21)
--- NOTE | 2017-01-28 10:56 | CONS ---
Date/Time of Note Date/Time of Note DATE: 01/28/17 TIME: 10:55 Consultation Date/Type/Reason Admit Date/Time Jan 02, 2017 at 19:30 Initial Consult Date 01/07/17 Type of Consultation: Pulmonary Referring Provider: BRAEDEN LUNSFORD MD 24 HR Interval Summary Free Text/Dictation dictated [id number] Exam/Review of Systems Vital Signs Vitals Vital Signs Date Time Temp Pulse Resp B/P Pulse Ox O2 Delivery O2 Flow Rate FiO2 01/28/17 08:10 97.6 100 18 127/70 93 01/27/17 20:00 Room Air Intake and Output 01/27/17 01/27/17 01/28/17 15:00 23:00 07:00 Intake Total 1970 ml 540 ml Output Total 800 ml 600 ml Balance 1170 ml -60 ml Results Result Diagram: 01/28/17 0452 01/28/17 0452 Results 24 hrs Laboratory Tests Test 01/28/17 04:52 White Blood Count 44.8 H Red Blood Count 2.38 L Hemoglobin 8.7 L Hematocrit 25.6 L Mean Corpuscular Volume 107.6 H Mean Corpuscular Hemoglobin 36.6 H Mean Corpuscular Hemoglobin Concent 34.0 Red Cell Distribution Width 24.3 H Platelet Count 89 L Mean Platelet Volume Neutrophils % 86.2 H Lymphocytes % 3.3 L Monocytes % 6.2 Eosinophils % 0.1 Basophils % 0.2 Nucleated Red Blood Cells % 0.1 H Neutrophils # 38.6 H Lymphocytes # 1.5 Monocytes # 2.8 H Eosinophils # 0.0 Basophils # 0.1 Nucleated Red Blood Cells # 0.1 H Sodium Level 144 Potassium Level 3.1 L Chloride Level 110 Carbon Dioxide Level 24 Anion Gap 13 Blood Urea Nitrogen 54 H Creatinine 1.76 H Glucose Level 270 #H Calcium Level 7.8 L Total Bilirubin 26.4 H Direct Bilirubin 24.00 *H Indirect Bilirubin 2.4 H Aspartate Amino Transf (AST/SGOT) 103 H Alanine Aminotransferase (ALT/SGPT) 57 Alkaline Phosphatase 469 H Total Protein 5.6 L Albumin 2.2 L Globulin 3.40 H Albumin/Globulin Ratio 0.64 Medications Medications Current Medications Ondansetron HCl (Zofran Inj) 4 mg Q6H PRN IV NAUSEA AND/OR VOMITING Last administered on 01/03/17t 14:52; Admin Dose 4 MG; Start 01/02/17 at 23:00 Rifaximin (Xifaxan) 550 mg BID PO Last administered on 01/28/17 09:19; Admin Dose 550 MG; Start 01/04/17 at 11:00 IV Flush (NS 10 ml) 10 ml PRN PRN IV IV PROTOCOL; Start 01/05/17 at 18:30 Prednisolone (Prelone (Ped)) 40 mg DAILY PO Last administered on 01/28/17 09: 21; Admin Dose 40 MG; Start 01/12/17 at 09:00 Citric Acid/ Sodium Citrate (Bicitra) 30 ml TID NGT Last administered on 09:15; Admin Dose 30 ML; Start 01/12/17 at 09:00 Nystatin (Nystatin Susp) 5 ml QID PO Last administered on 01/28/17 09:15; Admin Dose 5 ML; Start 01/13/17 at 17:00 Glucose (Glutose) 15 gm Q15M PRN PO DECREASED GLUCOSE; Start 01/15/17 at 18:30 Glucose (Glutose) 22.5 gm Q15M PRN PO DECREASED GLUCOSE; Start 01/15/17 at 18: 30 Dextrose (D50w Syringe) 25 ml Q15M PRN IV DECREASED GLUCOSE; Start 01/15/17 at 18:30 Dextrose (D50w Syringe) 50 ml Q15M PRN IV DECREASED GLUCOSE; Start 01/15/17 at 18:30 Glucagon (Glucagen) 1 mg Q15M PRN IM DECREASED GLUCOSE; Start 01/15/17 at 18:30 Glucose (Glutose) 15 gm Q15M PRN BUCCAL DECREASED GLUCOSE; Start 01/15/17 at 18 :30 Pentoxifylline (Trental) 400 mg DAILY PO Last administered on 01/28/17 09:19 ; Admin Dose 400 MG; Start 01/18/17 at 14:00 Famotidine (Pepcid Iv) 20 mg Q12 IV Last administered on 01/28/17 09:16; Admin Dose 20 MG; Start 01/20/17 at 09:00 Diazepam (Valium) 10 mg BID PRN PO ANXIETY Last administered on 01/28/17 01: 42; Admin Dose 10 MG; Start 01/20/17 at 11:00 Lactulose (Enulose) 20 gm BID PO Last administered on 01/28/17 09:15; Admin Dose 20 GM; Start 01/20/17 at 21:00 Lorazepam (Ativan) 0.5 mg TID PO Last administered on 01/28/17 09:15; Admin Dose 0.5 MG; Start 01/20/17 at 21:00 Morphine Sulfate (morphine) 1 mg Q4H PRN IM PAIN; Start 01/23/17 at 10:00 Morphine Sulfate (morphine) 1 mg Q6 PRN IV pain Last administered on 16:24; Admin Dose 1 MG; Start 01/23/17 at 10:00 Folic Acid (Folic Acid) 1 mg DAILY PO Last administered on 01/28/17 09:16; Admin Dose 1 MG; Start 01/26/17 at 09:00 Thiamine HCl (Vitamin B1) 100 mg DAILY PO Last administered on 01/28/17 09:19 ; Admin Dose 100 MG; Start 01/26/17 at 09:00 Multivit/Ca Carb/ B Cmplx/FA/Prenat 1 tab 1 tab DAILY PO Last administered on 01/28/17 09:15; Admin Dose 1 TAB; Start 01/26/17 at 09:00 Cefepime HCl 50 ml @ 100 mls/hr Q24H IVPB Last administered on 01/27/17 20: 44; Admin Dose 100 MLS/HR; Start 01/26/17 at 21:00 Caspofungin 35 mg/ Sodium Chloride 250 ml @ 250 mls/hr Q24H IVPB Last administered on 01/27/17 14:18; Admin Dose 250 MLS/HR; Start 01/27/17 at 13: 30 Doxycycline Hyclate 100 mg/ Sodium Chloride 250 ml @ 250 mls/hr Q12 IVPB Last administered on 01/28/17 09:15; Admin Dose 250 MLS/HR; Start 01/27/17 at 15: 00 Dextrose (D5W) 1,000 ml @ 60 mls/hr [id number] IV Last administered on 19:00; Admin Dose 60 MLS/HR; Start 01/27/17 at 18:00 NERI MCKEON Jan 28, 2017 10:56
--- NOTE | 2017-01-28 12:30 | CONS ---
Date/Time of Note Date/Time of Note DATE: 01/28/17 TIME: 12:26 Assessment/Plan Assessment/Plan Chief Complaint/Hosp Course ID PROGRESS NOTE TOTAL ABX DAY # 20 CURRENT ABX=> DOXY / Cefepime / Cancidas 24H INTERVAL SUMMARY * No fevers, (+)jaundice, WBC elevated, awake, alert, anxious & confused sitter at bedside GENERAL: VSS, NAD HEENT: (+)Icteric, Jaundice NECK: Trach midline, full ROM CHEST: Rise symmetrical without dyspnea on observation ABDOMEN: Soft, EXTREMITIES: Warm,(+) moves extremities SKIN: No diaphoresis, no rash ID ASSESSMENT: 36 yo M admit with: 1. s/p Hypotension/shock ->Hypovolemic due to acute UGIB from esophageal varices, (+) Presumptive SBP Sepsis + ASP PNA * Persisting Leukocytosis ->Multifactorial: likely SBP, ASP Pneumonitis, (+) Reactive SRIS, (+)partial steroid demargination 2. Acute alcoholic pancreatitis => SIRS w/ leukocytosis * CT w/(+)Diffuse mesenteric edema 3. Acute respiratory failure, possibly aspiration event=> extubated 4. Acute renal failure with severe acidosis. 5. Paralytic ileus. 6. History of alcohol (ETOH) abuse, withdrawal sxs 7. Multiple electrolyte imbalance. INVASIVES: PICC (01/05/17) ABX ALLERGY: NKDA TOTAL ABX DAY # 20 CURRENT ABX=> Doxy / Cefepime / Cancidas ID PLAN 1. Continue current ABX over the weekend 2. Aspiration precautions . Problems: Consultation Date/Type/Reason Admit Date/Time Jan 02, 2017 at 19:30 Initial Consult Date 01/07/17 Type of Consultation: id Referring Provider: BRAEDEN LUNSFORD MD Exam/Review of Systems Vital Signs Vitals Vital Signs Date Time Temp Pulse Resp B/P Pulse Ox O2 Delivery O2 Flow Rate FiO2 01/28/17 08:10 97.6 100 18 127/70 93 01/27/17 20:00 Room Air Intake and Output 01/27/17 01/27/17 01/28/17 15:00 23:00 07:00 Intake Total 1970 ml 540 ml Output Total 800 ml 600 ml Balance 1170 ml -60 ml Results Result Diagram: 01/28/17 0452 01/28/17 0452 Results 24 hrs Laboratory Tests Test 01/28/17 04:52 White Blood Count 44.8 H Red Blood Count 2.38 L Hemoglobin 8.7 L Hematocrit 25.6 L Mean Corpuscular Volume 107.6 H Mean Corpuscular Hemoglobin 36.6 H Mean Corpuscular Hemoglobin Concent 34.0 Red Cell Distribution Width 24.3 H Platelet Count 89 L Mean Platelet Volume Neutrophils % 86.2 H Lymphocytes % 3.3 L Monocytes % 6.2 Eosinophils % 0.1 Basophils % 0.2 Nucleated Red Blood Cells % 0.1 H Neutrophils # 38.6 H Lymphocytes # 1.5 Monocytes # 2.8 H Eosinophils # 0.0 Basophils # 0.1 Nucleated Red Blood Cells # 0.1 H Sodium Level 144 Potassium Level 3.1 L Chloride Level 110 Carbon Dioxide Level 24 Anion Gap 13 Blood Urea Nitrogen 54 H Creatinine 1.76 H Glucose Level 270 #H Calcium Level 7.8 L Total Bilirubin 26.4 H Direct Bilirubin 24.00 *H Indirect Bilirubin 2.4 H Aspartate Amino Transf (AST/SGOT) 103 H Alanine Aminotransferase (ALT/SGPT) 57 Alkaline Phosphatase 469 H Total Protein 5.6 L Albumin 2.2 L Globulin 3.40 H Albumin/Globulin Ratio 0.64 Medications Medications Current Medications Ondansetron HCl (Zofran Inj) 4 mg Q6H PRN IV NAUSEA AND/OR VOMITING Last administered on 01/03/17 14:52; Admin Dose 4 MG; Start 01/02/17 at 23:00 Rifaximin (Xifaxan) 550 mg BID PO Last administered on 01/28/17 09:19; Admin Dose 550 MG; Start 01/04/17 at 11:00 IV Flush (NS 10 ml) 10 ml PRN PRN IV IV PROTOCOL; Start 01/05/17 at 18:30 Prednisolone (Prelone (Ped)) 40 mg DAILY PO Last administered on 01/28/17 09: 21; Admin Dose 40 MG; Start 01/12/17 at 09:00 Citric Acid/ Sodium Citrate (Bicitra) 30 ml TID NGT Last administered on 09:15; Admin Dose 30 ML; Start 01/12/17 at 09:00 Nystatin (Nystatin Susp) 5 ml QID PO Last administered on 01/28/17 09:15; Admin Dose 5 ML; Start 01/13/17 at 17:00 Glucose (Glutose) 15 gm Q15M PRN PO DECREASED GLUCOSE; Start 01/15/17 at 18:30 Glucose (Glutose) 22.5 gm Q15M PRN PO DECREASED GLUCOSE; Start 01/15/17 at 18: 30 Dextrose (D50w Syringe) 25 ml Q15M PRN IV DECREASED GLUCOSE; Start 01/15/17 at 18:30 Dextrose (D50w Syringe) 50 ml Q15M PRN IV DECREASED GLUCOSE; Start 01/15/17 at 18:30 Glucagon (Glucagen) 1 mg Q15M PRN IM DECREASED GLUCOSE; Start 01/15/17 at 18:30 Glucose (Glutose) 15 gm Q15M PRN BUCCAL DECREASED GLUCOSE; Start 01/15/17 at 18 :30 Pentoxifylline (Trental) 400 mg DAILY PO Last administered on 01/28/17 09:19 ; Admin Dose 400 MG; Start 01/18/17 at 14:00 Famotidine (Pepcid Iv) 20 mg Q12 IV Last administered on 01/28/17 09:16; Admin Dose 20 MG; Start 01/20/17 at 09:00 Diazepam (Valium) 10 mg BID PRN PO ANXIETY Last administered on 01/28/17 01: 42; Admin Dose 10 MG; Start 01/20/17 at 11:00 Lactulose (Enulose) 20 gm BID PO Last administered on 01/28/17 09:15; Admin Dose 20 GM; Start 01/20/17 at 21:00 Lorazepam (Ativan) 0.5 mg TID PO Last administered on 01/28/17 09:15; Admin Dose 0.5 MG; Start 01/20/17 at 21:00 Morphine Sulfate (morphine) 1 mg Q4H PRN IM PAIN; Start 01/23/17 at 10:00 Morphine Sulfate (morphine) 1 mg Q6 PRN IV pain Last administered on 16:24; Admin Dose 1 MG; Start 01/23/17 at 10:00 Folic Acid (Folic Acid) 1 mg DAILY PO Last administered on 01/28/17 09:16; Admin Dose 1 MG; Start 01/26/17 at 09:00 Thiamine HCl (Vitamin B1) 100 mg DAILY PO Last administered on 01/28/17 09:19 ; Admin Dose 100 MG; Start 01/26/17 at 09:00 Multivit/Ca Carb/ B Cmplx/FA/Prenat 1 tab 1 tab DAILY PO Last administered on 01/28/17 09:15; Admin Dose 1 TAB; Start 01/26/17 at 09:00 Cefepime HCl 50 ml @ 100 mls/hr Q24H IVPB Last administered on 01/27/17 20: 44; Admin Dose 100 MLS/HR; Start 01/26/17 at 21:00 Caspofungin 35 mg/ Sodium Chloride 250 ml @ 250 mls/hr Q24H IVPB Last administered on 01/27/17 14:18; Admin Dose 250 MLS/HR; Start 01/27/17 at 13: 30 Doxycycline Hyclate 100 mg/ Sodium Chloride 250 ml @ 250 mls/hr Q12 IVPB Last administered on 01/28/17 09:15; Admin Dose 250 MLS/HR; Start 01/27/17 at 15: 00 Dextrose (D5W) 1,000 ml @ 60 mls/hr [id number] IV Last administered on 19:00; Admin Dose 60 MLS/HR; Start 01/27/17 at 18:00 DOE OVALLES NP Jan 28, 2017 12:30
[2017-01-28] MEDS: DEXTROSE 5% 1,000 ML IV SCH (12:59)
[2017-01-28] MEDS: CASPOFUNGIN 35 MG in SOD CHLORIDE 0.9% 250 ML IVPB SCH (13:18)
--- NOTE | 2017-01-28 14:39 | PN ---
Date/Time of Note Date/Time of Note DATE: 01/28/17 TIME: 14:38 Assessment/Plan VTE Prophylaxis VTE Prophylaxis Intervention: other Lines/Catheters IV [facility] ([facility] PICC Line Central line still needed: Yes Urinary Cath still in place: No Assessment/Plan Chief Complaint/Hosp Course # Acute on chronic liver failure likely Etoh abuse with elevated INR, Hyperbilirubenemia, low platelets, # Hepatic encephalopathy # ETOH withdrawal S/P # ETOH pancreatitis now sbp # Non Gap Acidosis likely combination of renal failure and diarrhoea # Leukocytosis could be pancreatitis vs Alcholic hepatitis AND SBP # Hypoxic Respiratory failure s/p extubated on 01/15 # Thrombocytopenia # Anemia # s/P EGD with gastritis # Ileus s/p Small bowel follow thru which is negative, eating ok SBP HYPERNATREMIA better hypokalemia PLAN CK LABS iv fluid NEED REHAB PT OT ANTIBIOTIC kcl paracentesis Problems: Subjective 24 Hr Interval Summary Subjective hx not possible: other (still confused+) Exam/Review of Systems Vital Signs Vitals Vital Signs Date Time Temp Pulse Resp B/P Pulse Ox O2 Delivery O2 Flow Rate FiO2 01/28/17 08:10 97.6 100 18 127/70 93 01/27/17 20:00 Room Air Intake and Output 01/27/17 01/27/17 01/28/17 15:00 23:00 07:00 Intake Total 1970 ml 540 ml Output Total 800 ml 600 ml Balance 1170 ml -60 ml Exam Respiratory: clear to auscultation Cardiovascular: regular rate and rhythm Gastrointestinal: ascites (+), bowel sounds (+), soft Extremities: No edema Results Result Diagram: 01/28/17 0452 01/28/17 0452 Results 24 hrs Laboratory Tests Test 01/28/17 04:52 White Blood Count 44.8 H Red Blood Count 2.38 L Hemoglobin 8.7 L Hematocrit 25.6 L Mean Corpuscular Volume 107.6 H Mean Corpuscular Hemoglobin 36.6 H Mean Corpuscular Hemoglobin Concent 34.0 Red Cell Distribution Width 24.3 H Platelet Count 89 L Mean Platelet Volume Neutrophils % 86.2 H Lymphocytes % 3.3 L Monocytes % 6.2 Eosinophils % 0.1 Basophils % 0.2 Nucleated Red Blood Cells % 0.1 H Neutrophils # 38.6 H Lymphocytes # 1.5 Monocytes # 2.8 H Eosinophils # 0.0 Basophils # 0.1 Nucleated Red Blood Cells # 0.1 H Sodium Level 144 Potassium Level 3.1 L Chloride Level 110 Carbon Dioxide Level 24 Anion Gap 13 Blood Urea Nitrogen 54 H Creatinine 1.76 H Glucose Level 270 #H Calcium Level 7.8 L Total Bilirubin 26.4 H Direct Bilirubin 24.00 *H Indirect Bilirubin 2.4 H Aspartate Amino Transf (AST/SGOT) 103 H Alanine Aminotransferase (ALT/SGPT) 57 Alkaline Phosphatase 469 H Total Protein 5.6 L Albumin 2.2 L Globulin 3.40 H Albumin/Globulin Ratio 0.64 Medications Medications Current Medications Ondansetron HCl (Zofran Inj) 4 mg Q6H PRN IV NAUSEA AND/OR VOMITING Last administered on 01/03/17 14:52; Admin Dose 4 MG; Start 01/02/17 at 23:00 Rifaximin (Xifaxan) 550 mg BID PO Last administered on 01/28/17 09:19; Admin Dose 550 MG; Start 01/04/17 at 11:00 IV Flush (NS 10 ml) 10 ml PRN PRN IV IV PROTOCOL; Start 01/05/17 at 18:30 Prednisolone (Prelone (Ped)) 40 mg DAILY PO Last administered on 01/28/17 09: 21; Admin Dose 40 MG; Start 01/12/17 at 09:00 Citric Acid/ Sodium Citrate (Bicitra) 30 ml TID NGT Last administered on 13:18; Admin Dose 30 ML; Start 01/12/17 at 09:00 Nystatin (Nystatin Susp) 5 ml QID PO Last administered on 01/28/17 09:15; Admin Dose 5 ML; Start 01/13/17 at 17:00 Glucose (Glutose) 15 gm Q15M PRN PO DECREASED GLUCOSE; Start 01/15/17 at 18:30 Glucose (Glutose) 22.5 gm Q15M PRN PO DECREASED GLUCOSE; Start 01/15/17 at 18: 30 Dextrose (D50w Syringe) 25 ml Q15M PRN IV DECREASED GLUCOSE; Start 01/15/17 at 18:30 Dextrose (D50w Syringe) 50 ml Q15M PRN IV DECREASED GLUCOSE; Start 01/15/17 at 18:30 Glucagon (Glucagen) 1 mg Q15M PRN IM DECREASED GLUCOSE; Start 01/15/17 at 18:30 Glucose (Glutose) 15 gm Q15M PRN BUCCAL DECREASED GLUCOSE; Start 01/15/17 at 18 :30 Pentoxifylline (Trental) 400 mg DAILY PO Last administered on 01/28/17 09:19 ; Admin Dose 400 MG; Start 01/18/17 at 14:00 Famotidine (Pepcid Iv) 20 mg Q12 IV Last administered on 01/28/17 09:16; Admin Dose 20 MG; Start 01/20/17 at 09:00 Diazepam (Valium) 10 mg BID PRN PO ANXIETY Last administered on 01/28/17 01: 42; Admin Dose 10 MG; Start 01/20/17 at 11:00 Lactulose (Enulose) 20 gm BID PO Last administered on 01/28/17 09:15; Admin Dose 20 GM; Start 01/20/17 at 21:00 Morphine Sulfate (morphine) 1 mg Q4H PRN IM PAIN; Start 01/23/17 at 10:00 Morphine Sulfate (morphine) 1 mg Q6 PRN IV pain Last administered on 16:24; Admin Dose 1 MG; Start 01/23/17 at 10:00 Folic Acid (Folic Acid) 1 mg DAILY PO Last administered on 01/28/17 09:16; Admin Dose 1 MG; Start 01/26/17 at 09:00 Thiamine HCl (Vitamin B1) 100 mg DAILY PO Last administered on 01/28/17 09:19 ; Admin Dose 100 MG; Start 01/26/17 at 09:00 Multivit/Ca Carb/ B Cmplx/FA/Prenat 1 tab 1 tab DAILY PO Last administered on 01/28/17 09:15; Admin Dose 1 TAB; Start 01/26/17 at 09:00 Cefepime HCl 50 ml @ 100 mls/hr Q24H IVPB Last administered on 01/27/17 20: 44; Admin Dose 100 MLS/HR; Start 01/26/17 at 21:00 Caspofungin 35 mg/ Sodium Chloride 250 ml @ 250 mls/hr Q24H IVPB Last administered on 01/28/17 13:18; Admin Dose 250 MLS/HR; Start 01/27/17 at 13: 30 Doxycycline Hyclate 100 mg/ Sodium Chloride 250 ml @ 250 mls/hr Q12 IVPB Last administered on 01/28/17 09:15; Admin Dose 250 MLS/HR; Start 01/27/17 at 15: 00 Dextrose (D5W) 1,000 ml @ 60 mls/hr [id number] IV Last administered on 12:59; Admin Dose 60 MLS/HR; Start 01/27/17 at 18:00 Lorazepam 0.5 mg 0.5 mg Q6H PRN IV AGITATION/ANXIETY; Start 01/28/17 at 14:00 Potassium Chloride (KCl 40 MEQ/250 ML NS) 250 ml @ 62.5 mls/hr ONCE ONCE IVPB ; Start 01/28/17 at 15:30; Stop 01/28/17 at 19:29 JAYME BANSAL MD Jan 28, 2017 14:39
[2017-01-28] MEDS: morphine 2 MG INJ IV PRN (14:41)
--- NOTE | 2017-01-28 15:18 | CONS ---
Date/Time of Note Date/Time of Note DATE: 01/28/17 TIME: 15:16 Assessment/Plan Assessment/Plan Additional Assessment/Plan Additional Assessment/Plan IMPRESSION: 1. Delirium tremens patient is still shaky unable to stand on his feet and continues to have slurred speech 2. Hepatic encephalopathy. Better patient is now communicating with slurred speech, still confused 3. Alcoholic liver disease. Patient is on prednisolone 4. Pancreatitis. Amylase has come down . Lipase is down 5. Leukocytosis. Persistent most probably related to alcoholic hepatitis and steroid 6. Renal insufficiency. Though the urine output is good. Renal function has improved a lot with good urine output. Creatinine is coming down. 7. Pedal edema resolved 8. Thrombocytopenia better 9. Ileus, small bowel follow-through was negative 10. Patient's gastroparesis might be related to uremia better 11. Hypernatremia 12. Spontaneous bacterial peritonitis. Acetic fluid was cloudy, WBC polymorphs where greater than 250 13. Abdominal pain rule out spontaneous bacterial peritonitis Plan 1. Continue prednisolone 2. Your liquid diet, advance to solid diet, aspiration precaution 3. Patient is confused at times but more oriented than before 4. Reduce IV fluid since patient is third spacing, may need albumin. 5. Octreotide discontinued 6. We will monitor WBC, INR, total bilirubin, and creatinine on a regular basis 7. I had [id number] discussion with the mother and the family members and also with the voice data communications engineer and wrecker driver. 8. And is on pentoxifylline 400 mg once a day 10. Please avoid narcotics and also Ativan patient confusional state is secondary to hepatic encephalopathy 11. Abdominal paracentesis again 2.2 L of fluid removed 12. Physical therapy and discontinue Ativan, patient is unable to stand on his own for a long time. He needs physical therapist support and also a walker to hold on 13. Patient started on pentoxifylline 14. Discontinue Reglan 15. Antibiotics as per ID 16. Paracentesis today after correcting the coagulopathy if despite that continues to have pain then will get CAT scan of the abdomen to look at the pancreas. Consultation Date/Type/Reason Admit Date/Time Jan 02, 2017 at 19:30 Type of Consultation: id Referring Provider: BRAEDEN LUNSFORD MD 24 HR Interval Summary Free Text/Dictation Patient and the family complaints of abdominal pain Exam/Review of Systems Vital Signs Vitals Vital Signs Date Time Temp Pulse Resp B/P Pulse Ox O2 Delivery O2 Flow Rate FiO2 01/28/17 08:10 97.6 100 18 127/70 93 01/27/17 20:00 Room Air Intake and Output 01/27/17 01/27/17 01/28/17 15:00 23:00 07:00 Intake Total 1970 ml 540 ml Output Total 800 ml 600 ml Balance 1170 ml -60 ml Exam Respiratory: clear to auscultation, normal air movement Cardiovascular: nl pulses, regular rate and rhythm Gastrointestinal: ascites (Tender abdomen but soft in consistency), distended, soft Extremities: normal pulses Neurological: confused Results Result Diagram: 01/28/17 0452 01/28/17 0452 Results 24 hrs Laboratory Tests Test 01/28/17 04:52 White Blood Count 44.8 H Red Blood Count 2.38 L Hemoglobin 8.7 L Hematocrit 25.6 L Mean Corpuscular Volume 107.6 H Mean Corpuscular Hemoglobin 36.6 H Mean Corpuscular Hemoglobin Concent 34.0 Red Cell Distribution Width 24.3 H Platelet Count 89 L Mean Platelet Volume Neutrophils % 86.2 H Lymphocytes % 3.3 L Monocytes % 6.2 Eosinophils % 0.1 Basophils % 0.2 Nucleated Red Blood Cells % 0.1 H Neutrophils # 38.6 H Lymphocytes # 1.5 Monocytes # 2.8 H Eosinophils # 0.0 Basophils # 0.1 Nucleated Red Blood Cells # 0.1 H Sodium Level 144 Potassium Level 3.1 L Chloride Level 110 Carbon Dioxide Level 24 Anion Gap 13 Blood Urea Nitrogen 54 H Creatinine 1.76 H Glucose Level 270 #H Calcium Level 7.8 L Total Bilirubin 26.4 H Direct Bilirubin 24.00 *H Indirect Bilirubin 2.4 H Aspartate Amino Transf (AST/SGOT) 103 H Alanine Aminotransferase (ALT/SGPT) 57 Alkaline Phosphatase 469 H Total Protein 5.6 L Albumin 2.2 L Globulin 3.40 H Albumin/Globulin Ratio 0.64 Medications Medications Current Medications Ondansetron HCl (Zofran Inj) 4 mg Q6H PRN IV NAUSEA AND/OR VOMITING Last administered on 01/03/17 14:52; Admin Dose 4 MG; Start 01/02/17 at 23:00 Rifaximin (Xifaxan) 550 mg BID PO Last administered on 01/28/17 09:19; Admin Dose 550 MG; Start 01/04/17 at 11:00 IV Flush (NS 10 ml) 10 ml PRN PRN IV IV PROTOCOL; Start 01/05/17 at 18:30 Prednisolone (Prelone (Ped)) 40 mg DAILY PO Last administered on 01/28/17 09: 21; Admin Dose 40 MG; Start 01/12/17 at 09:00 Citric Acid/ Sodium Citrate (Bicitra) 30 ml TID NGT Last administered on 13:18; Admin Dose 30 ML; Start 01/12/17 at 09:00 Nystatin (Nystatin Susp) 5 ml QID PO Last administered on 01/28/17 09:15; Admin Dose 5 ML; Start 01/13/17 at 17:00 Glucose (Glutose) 15 gm Q15M PRN PO DECREASED GLUCOSE; Start 01/15/17 at 18:30 Glucose (Glutose) 22.5 gm Q15M PRN PO DECREASED GLUCOSE; Start 01/15/17 at 18: 30 Dextrose (D50w Syringe) 25 ml Q15M PRN IV DECREASED GLUCOSE; Start 01/15/17 at 18:30 Dextrose (D50w Syringe) 50 ml Q15M PRN IV DECREASED GLUCOSE; Start 01/15/17 at 18:30 Glucagon (Glucagen) 1 mg Q15M PRN IM DECREASED GLUCOSE; Start 01/15/17 at 18:30 Glucose (Glutose) 15 gm Q15M PRN BUCCAL DECREASED GLUCOSE; Start 01/15/17 at 18 :30 Pentoxifylline (Trental) 400 mg DAILY PO Last administered on 01/28/17 09:19 ; Admin Dose 400 MG; Start 01/18/17 at 14:00 Famotidine (Pepcid Iv) 20 mg Q12 IV Last administered on 01/28/17 09:16; Admin Dose 20 MG; Start 01/20/17 at 09:00 Diazepam (Valium) 10 mg BID PRN PO ANXIETY Last administered on 01/28/17 01: 42; Admin Dose 10 MG; Start 01/20/17 at 11:00 Lactulose (Enulose) 20 gm BID PO Last administered on 01/28/17 09:15; Admin Dose 20 GM; Start 01/20/17 at 21:00 Morphine Sulfate (morphine) 1 mg Q4H PRN IM PAIN; Start 01/23/17 at 10:00 Morphine Sulfate (morphine) 1 mg Q6 PRN IV pain Last administered on 14:41; Admin Dose 1 MG; Start 01/23/17 at 10:00 Folic Acid (Folic Acid) 1 mg DAILY PO Last administered on 01/28/17 09:16; Admin Dose 1 MG; Start 01/26/17 at 09:00 Thiamine HCl (Vitamin B1) 100 mg DAILY PO Last administered on 01/28/17 09:19 ; Admin Dose 100 MG; Start 01/26/17 at 09:00 Multivit/Ca Carb/ B Cmplx/FA/Prenat 1 tab 1 tab DAILY PO Last administered on 01/28/17 09:15; Admin Dose 1 TAB; Start 01/26/17 at 09:00 Cefepime HCl 50 ml @ 100 mls/hr Q24H IVPB Last administered on 01/27/17 20: 44; Admin Dose 100 MLS/HR; Start 01/26/17 at 21:00 Caspofungin 35 mg/ Sodium Chloride 250 ml @ 250 mls/hr Q24H IVPB Last administered on 01/28/17 13:18; Admin Dose 250 MLS/HR; Start 01/27/17 at 13: 30 Doxycycline Hyclate 100 mg/ Sodium Chloride 250 ml @ 250 mls/hr Q12 IVPB Last administered on 01/28/17 09:15; Admin Dose 250 MLS/HR; Start 01/27/17 at 15: 00 Dextrose (D5W) 1,000 ml @ 60 mls/hr [id number] IV Last administered on 12:59; Admin Dose 60 MLS/HR; Start 01/27/17 at 18:00 Lorazepam 0.5 mg 0.5 mg Q6H PRN IV AGITATION/ANXIETY; Start 01/28/17 at 14:00 Potassium Chloride (KCl 40 MEQ/250 ML NS) 250 ml @ 62.5 mls/hr ONCE ONCE IVPB ; Start 01/28/17 at 15:30; Stop 01/28/17 at 19:29 LAURA CORDERO MD Jan 28, 2017 15:18
[2017-01-28] MEDS ORDERED: POTASSIUM CHLORIDE 250 ML IVPB ONE (15:30)
[2017-01-28 15:53] VITALS: BP 133/60; RESP 18
[2017-01-28] MEDS ORDERED: morphine 2 MG INJ IV ONE (16:00)
[2017-01-28 19:30] VITALS: BP 124/65; RESP 18
--- NOTE | 2017-01-28 21:07 | PN ---
Date/Time of Note Date/Time of Note DATE: 01/28/17 TIME: 21:05 Assessment/Plan Lines/Catheters IV Catheter Type (from [facility]): PICC Line Minaya in Place (from [facility]): No Assessment/Plan Chief Complaint/Hosp Course 1. Paralytic ileus 2nd acute processes. SBFT negative. Improved; +bowel function -Monitor 2. Acute on chronic alcoholic pancreatitis with peripancreatic fluid: CT: worsened pancreatitis -antimicrobials -Supportive measures -Judicious fluid management -Trend labs -Encourage cessation 3. Acute GI bleed from gastritis and esophageal varices secondary to alcoholism. Stable -Transfuse as needed -Supportive measures: ppi -Correct coagulopathy and platelet dysfunction 4. Anemia secondary to above: h/h stable -As above 5. Leukocytosis, multifactorial with SIRS and steroid therapy, ? infectious( pl. effusions, atelectasis vs. pna +/- pancreatitis-worsened on CT; ?sbp); persistent -Close monitoring -follow ascitic fluid studies 6. Alcoholic hepatitis with hepatosplenomegaly; elevated LFT's (improving) -Medical and GI optimization 7. Chronic alcohol abuse with Delirium Tremens; no tremors -Encourage cessation -Sedation/intubation 8. Subcapsular liver collection possible hematoma versus other -Monitor 9. Electrolyte imbalance -Correct with replacements and fluid management 10. Alcohol withdrawal with tachypnea, tachycardia and delirium tremens; improved -supportive 11. NICOLAS: output improving. improving -judicious fluids -avoid nephrotoxic meds 12. Atelectasis vs. pna -IS -increase activity-OOB as tolerated; PT Thank you, Problems: Subjective 24 Hr Interval Summary Continues to be confused and labile. Still has shakes. Up with PT. Persistent leukocytosis. No fevers, chills, sob, congested cough, n/v/d/dysuria. Exam/Review of Systems Vital Signs Vitals Vital Signs Date Time Temp Pulse Resp B/P Pulse Ox O2 Delivery O2 Flow Rate FiO2 01/28/17 19:30 98.3 87 18 124/65 95 01/27/17 20:00 Room Air Intake and Output 01/27/17 01/27/17 01/28/17 15:00 23:00 07:00 Intake Total 1970 ml 540 ml Output Total 800 ml 600 ml Balance 1170 ml -60 ml Exam Free Text/Dictation Constitutional: Confused Not oriented. more alert Psych: No nl mood/affect Head: atraumatic, normocephalic, No hematomas, No lacerations Eyes: EOMI, PERRL, icteric ENMT: nl external ears & nose, nl lips & teeth. Mucosa pink and dry. icteric Neck: non-tender, supple, No jvd Respiratory: No congested cough, No labored breathing Cardiovascular: No edema, No regular rate and rhythm Gastrointestinal: soft, min-tender, less distended. No rebound or guarding; rectal tube with +gas/bm Musculoskeletal: nl extremities to inspection, No joint tenderness; BLE edema Extremities: normal pulses, No calf tenderness, No cyanosis Neurological: Responsive Skin: rash or lesions (Jaundice), No diaphoresis, No nl turgor : minaya with luis output (improved; increased amount) Lymph: nl lymph nodes, nontender Results Result Diagram: 01/28/17 0452 01/28/17 0452 PETER TAMEZ MD Jan 28, 2017 21:07
[2017-01-28] MEDS: FAMOTIDINE 20 MG TAB PO SCH (21:59)
[2017-01-28] MEDS: CEFEPIME 1GM/50 ML (PMX) 50 ML IVPB SCH (22:09)
--- NOTE | 2017-01-28 23:33 | CONS ---
DATE OF ADMISSION: 01/02/2017 DATE OF CONSULTATION: 01/28/2017 Patient's condition remains stable. The patient is still having occasional confusion, has slurred s peech. PHYSICAL EXAMINATION: GENERAL: A young male, awake, currently in no distress. VITAL SIGNS: Temperature 98.8 degrees Fahrenheit, respiratory rate is 18 to 20 per minute, heart ra te 84 per minute, blood pressure is 128/70, O2 sat 93% on 2 liters nasal cannula. Urine output is i mproving. HEENT: Supple neck. The patient remains strongly icteric. No thyromegaly. No oral bleeding seen. Patient has multiple carious teeth. Pupils are small bilaterally. CHEST: Diminished but clear breath sounds. HEART: S1, S2 audible. No murmurs. Regular rhythm. ABDOMEN: Soft, nontender. No organomegaly. Bowel sounds audible. No fluid thrill. EXTREMITIES: No peripheral edema. NEUROLOGIC: Patient is awake and follows simple commands, still exhibiting slurred speech. LABORATORY DATA: Today, white count is 44.8, hemoglobin 8.7, platelet count of 89,000. Sodium 144, potassium 3.1, chloride 110, bicarbonate 24, BUN 54, creatinine 1.7, bilirubin is 24.0. AST of 103 , ALT of 57, alkaline phosphatase 469. MEDICATIONS: 1. Caspofungin 35 mg IV daily. 2. Cefepime 1 gram IV q.24 hours. 3. Vibramycin 100 mg IV q.12 hours. 4. Valium on a p.r.n. basis. 5. Pepcid 20 mg IV q.12 hours. 6. Folic acid 1 mg a day. 7. Lactulose 20 grams b.i.d. 8. Ativan on a p.r.n. basis. 9. Morphine on a p.r.n. basis. 10. Trental 400 mg daily. 11. Prednisone 40 mg daily. 12. Thiamine 100 mg daily. 13. Rifaximin 550 mg b.i.d. ASSESSMENT AND PLAN: 1. Patient admitted with hepatic encephalopathy due to alcoholic liver disease, status post respira tory failure. 2. Severe persistent hyperbilirubinemia. 3. Ascites, likely with subacute bacterial peritonitis with persistent leukocytosis; however, clini rafal improving. 4. Altered mental status with very slow with interval improvement as well. 5. Hepatorenal syndrome with significant improvement in renal function. 6. Anemia. 7. Status post upper gastrointestinal bleed. RECOMMENDATIONS: Continue current treatment. Dictated By: NERI ALEGRIA/JACQUELINE Conf#: [id number] DID#: [id number]
[2017-01-29 02:00] VITALS: BP 127/78; RESP 18
[2017-01-29 06:23] LABS: INR 2.26; PROTIME 25.2 Sec (12.2-14.2)
[2017-01-29 06:42] LABS: ALBUMIN 2.5 g/dl (3.3-4.9); ALBUMIN/GLOBULIN RATIO 0.69; BILIRUBIN,INDIRECT 2.6 mg/dl (0-1.1); CALCIUM 8.7 mg/dl (8.4-10.2); CREATININE 1.76 mg/dl (0.61-1.24); POTASSIUM 3.4 mmol/L (3.5-5.1); TOTAL PROTEIN 6.1 g/dl (6.1-8.1)
[2017-01-29] MEDS: DEXTROSE 5% 1,000 ML IV SCH ×2 (06:53→15:14)
[2017-01-29 06:54] LABS: BILIRUBIN,DIRECT 26.5 mg/dl (0.00-0.20); BILIRUBIN,TOTAL 29.1 mg/dl (0.2-1.3)
[2017-01-29 08:00] VITALS: BP 126/76; RESP 14
[2017-01-29] MEDS: DOXYCYCLINE 100 MG in SOD CHLORIDE 0.9% 250 ML IVPB SCH ×2 (09:43→20:04)
[2017-01-29] MEDS: PENTOXIFYLLINE (SR) 400 MG TAB PO SCH (09:44)
[2017-01-29] MEDS: LACTULOSE 30ML CUP PO SCH ×2 (09:44→20:04)
[2017-01-29] MEDS: predniSOLONE (3 MG/ML PO SYG) PO SCH (09:44)
[2017-01-29] MEDS: RIFAXIMIN 550 MG TAB PO SCH ×2 (09:44→20:05)
[2017-01-29] MEDS: NYSTATIN SUSP 5 ML CUP PO SCH ×4 (09:44→20:04)
[2017-01-29] MEDS: MULTIVIT/CA CARB/B CMPLX/FA TAB PO SCH (09:44)
[2017-01-29] MEDS: THIAMINE 100 MG TAB PO SCH (09:44)
[2017-01-29] MEDS: FAMOTIDINE 20 MG TAB PO SCH ×2 (09:44→20:05)
[2017-01-29] MEDS: FOLIC ACID 1 MG TAB PO SCH (09:44)
[2017-01-29] MEDS: CITRIC ACID/NA CITRATE 30 ML CUP NGT SCH ×3 (09:44→20:04)
[2017-01-29] MEDS: BALSAM PERU/CASTOR OIL 60 GM TUBE TOP SCH ×2 (09:45→20:05)
--- NOTE | 2017-01-29 11:22 | CONS ---
Date/Time of Note Date/Time of Note DATE: 01/29/17 TIME: 11:18 Assessment/Plan Assessment/Plan Additional Assessment/Plan Assessment and recommendations; next 1. Patient admitted with acute hepatic enteropathy due to alcoholic cirrhosis status post extubation several days ago. 2. Waxing and waning mental status due to underlying hepatic encephalopathy. 3. Anemia. Hematocrit is stable. Status post EGD. 4. Persistent hyperbilirubinemia. 5. Acute pancreatitis. 6. Possibly subacute bacterial peritonitis. Patient currently on appropriate antibiotic regimen. 7. Thrombocytopenia. 8. Persistent severe leukocytosis. Continue current supportive care. If the patient's mental status worsens he may be required to be transferred to ICU. Consultation Date/Type/Reason Admit Date/Time Jan 02, 2017 at 19:30 Initial Consult Date 01/07/17 Type of Consultation: Pulmonary Referring Provider: BRAEDEN LUNSFORD MD 24 HR Interval Summary Free Text/Dictation Patient's condition remains tenuous at best. Remains confused as well as having slurred speech. Which is more pronounced today. General exam; young male, awake, responding appropriately to questions. Currently in no distress. Exam/Review of Systems Vital Signs Vitals Vital Signs Date Time Temp Pulse Resp B/P Pulse Ox O2 Delivery O2 Flow Rate FiO2 01/29/17 08:00 97.3 87 14 126/76 92 01/27/17 20:00 Room Air Intake and Output 01/28/17 01/28/17 01/29/17 15:00 23:00 07:00 Intake Total 1000 ml 1590 ml 1530 ml Output Total 650 ml 1600 ml Balance 1000 ml 940 ml -70 ml Exam HEENT exam; supple neck, patient remains strongly icteric. Has fair dentition. Pupils are small bilaterally. No neck masses. Chest exam; clear to auscultation. S1-S2 audible, no murmurs. Regular rhythm. Abdomen exam; soft, nontender. No fluid thrill appreciated. Bowel sounds are audible. No organomegaly. Extremity exam; no peripheral edema. RAILROAD INSPECTOR exam; patient is awake and moves all 4 extremities on command. Exhibiting slurred speech. Results Result Diagram: 01/28/17 0452 01/29/17 0501 Results 24 hrs Laboratory Tests Test 01/29/17 05:01 Prothrombin Time 25.2 H Prothrombin Time Ratio 2.0 INR International Normalized Ratio 2.26 Sodium Level 152 H Potassium Level 3.4 L Chloride Level 116 H Carbon Dioxide Level 23 Anion Gap 16 Blood Urea Nitrogen 55 H Creatinine 1.76 H Glucose Level 107 # Calcium Level 8.7 Total Bilirubin 29.1 H Direct Bilirubin 26.50 *H Indirect Bilirubin 2.6 H Aspartate Amino Transf (AST/SGOT) 116 H Alanine Aminotransferase (ALT/SGPT) 55 Alkaline Phosphatase 465 H Total Protein 6.1 Albumin 2.5 L Globulin 3.60 H Albumin/Globulin Ratio 0.69 Medications Medications Current Medications Ondansetron HCl (Zofran Inj) 4 mg Q6H PRN IV NAUSEA AND/OR VOMITING Last administered on 01/03/17 14:52; Admin Dose 4 MG; Start 01/02/17 at 23:00 Rifaximin (Xifaxan) 550 mg BID PO Last administered on 01/29/17 09:44; Admin Dose 550 MG; Start 01/04/17 at 11:00 IV Flush (NS 10 ml) 10 ml PRN PRN IV IV PROTOCOL; Start 01/05/17 at 18:30 Prednisolone (Prelone (Ped)) 40 mg DAILY PO Last administered on 01/29/17 09: 44; Admin Dose 40 MG; Start 01/12/17 at 09:00 Citric Acid/ Sodium Citrate (Bicitra) 30 ml TID NGT Last administered on 09:44; Admin Dose 30 ML; Start 01/12/17 at 09:00 Nystatin (Nystatin Susp) 5 ml QID PO Last administered on 01/29/17 09:44; Admin Dose 5 ML; Start 01/13/17 at 17:00 Glucose (Glutose) 15 gm Q15M PRN PO DECREASED GLUCOSE; Start 01/15/17 at 18:30 Glucose (Glutose) 22.5 gm Q15M PRN PO DECREASED GLUCOSE; Start 01/15/17 at 18: 30 Dextrose (D50w Syringe) 25 ml Q15M PRN IV DECREASED GLUCOSE; Start 01/15/17 at 18:30 Dextrose (D50w Syringe) 50 ml Q15M PRN IV DECREASED GLUCOSE; Start 01/15/17 at 18:30 Glucagon (Glucagen) 1 mg Q15M PRN IM DECREASED GLUCOSE; Start 01/15/17 at 18:30 Glucose (Glutose) 15 gm Q15M PRN BUCCAL DECREASED GLUCOSE; Start 01/15/17 at 18 :30 Pentoxifylline (Trental) 400 mg DAILY PO Last administered on 01/29/17 09:44 ; Admin Dose 400 MG; Start 01/18/17 at 14:00 Diazepam (Valium) 10 mg BID PRN PO ANXIETY Last administered on 01/28/17 22: 01; Admin Dose 10 MG; Start 01/20/17 at 11:00 Lactulose (Enulose) 20 gm BID PO Last administered on 01/29/17 09:44; Admin Dose 20 GM; Start 01/20/17 at 21:00 Morphine Sulfate (morphine) 1 mg Q4H PRN IM PAIN; Start 01/23/17 at 10:00 Morphine Sulfate (morphine) 1 mg Q6 PRN IV pain Last administered on 14:41; Admin Dose 1 MG; Start 01/23/17 at 10:00 Folic Acid (Folic Acid) 1 mg DAILY PO Last administered on 01/29/17 09:44; Admin Dose 1 MG; Start 01/26/17 at 09:00 Thiamine HCl (Vitamin B1) 100 mg DAILY PO Last administered on 01/29/17 09:44 ; Admin Dose 100 MG; Start 01/26/17 at 09:00 Multivit/Ca Carb/ B Cmplx/FA/Prenat 1 tab 1 tab DAILY PO Last administered on 01/29/17 09:44; Admin Dose 1 TAB; Start 01/26/17 at 09:00 Cefepime HCl 50 ml @ 100 mls/hr Q24H IVPB Last administered on 01/28/17 22: 09; Admin Dose 100 MLS/HR; Start 01/26/17 at 21:00 Caspofungin 35 mg/ Sodium Chloride 250 ml @ 250 mls/hr Q24H IVPB Last administered on 01/28/17 13:18; Admin Dose 250 MLS/HR; Start 01/27/17 at 13: 30 Doxycycline Hyclate 100 mg/ Sodium Chloride 250 ml @ 250 mls/hr Q12 IVPB Last administered on 01/29/17 09:43; Admin Dose 250 MLS/HR; Start 01/27/17 at 15: 00 Dextrose (D5W) 1,000 ml @ 60 mls/hr [id number] IV Last administered on 12:59; Admin Dose 60 MLS/HR; Start 01/27/17 at 18:00 Lorazepam (Ativan) 0.5 mg Q6H PRN IV AGITATION/ANXIETY; Start 01/28/17 at 14: 00 Famotidine (Pepcid) 20 mg Q12 PO Last administered on 01/29/17 09:44; Admin Dose 20 MG; Start 01/28/17 at 21:00 NERI MCKEON Jan 29, 2017 11:22
[2017-01-29] MEDS: CASPOFUNGIN 35 MG in SOD CHLORIDE 0.9% 250 ML IVPB SCH (13:46)
--- NOTE | 2017-01-29 13:50 | CONS ---
Date/Time of Note Date/Time of Note DATE: 01/29/17 TIME: 13:42 Consultation Date/Type/Reason Admit Date/Time Jan 02, 2017 at 19:30 Initial Consult Date SUBJECTIVE: NO acute events overnight. No fevers. Jaundice. He is still confused. Comfortably resting in bed. VITAL SIGNS: 126/76 P:87 R: 14 SO2: 92% T: 97.3 LABS: WBC 44.8 as of yesterday. ON PREDNISONE. No CBC today. BUN 55, Creatinine 1.76. Direct randy= 26.50 ANTIMICROBIALS: Cefepime, Doxy, Cancidas. PHYSICAL EXAMINATION: GENERAL: Well-developed, ill-appearing,jaundice,male who is in no distress. HEENT: Head atraumatic, normocephalic. Sclerae anicteric. Buccal mucosa dry. NECK: Supple. CHEST: Rise symmetrical. Breath sounds diminished to bases. HEART: S1, S2. ABDOMEN: Distended, soft. Bowel tones present. EXTREMITIES: With trace edema. ASSESSMENT: 1. Persistent leukocytosis, possibly secondary to steroids, rule out infectious process, rule out spontaneous bacterial peritonitis. The patient is status post thoracentesis 2 days ago with fluid. White blood cell count 461 and LDH of 388, no cultures sent. 2. Acute pancreatitis. 3. Decompensated liver cirrhosis. 4. Hepatic encephalopathy. 5. Acute renal failure. 6. Recurrent ascites. S/P paracentesis. 7. Status post septic shock. 8. S/P respiratory failure. PLAN: Continue cefepime, Doxy and Cancidas. Continue anti-aspiration measures. GI recommendations. Type of Consultation: ID Referring Provider: BRAEDEN LUNSFORD MD Exam/Review of Systems Vital Signs Vitals Vital Signs Date Time Temp Pulse Resp B/P Pulse Ox O2 Delivery O2 Flow Rate FiO2 01/29/17 08:00 97.3 87 14 126/76 92 01/27/17 20:00 Room Air Intake and Output 01/28/17 01/28/17 01/29/17 15:00 23:00 07:00 Intake Total 1000 ml 1590 ml 1530 ml Output Total 650 ml 1600 ml Balance 1000 ml 940 ml -70 ml Results Result Diagram: 01/28/17 5128 01/29/17 0501 Results 24 hrs Laboratory Tests Test 01/29/17 05:01 Prothrombin Time 25.2 H Prothrombin Time Ratio 2.0 INR International Normalized Ratio 2.26 Sodium Level 152 H Potassium Level 3.4 L Chloride Level 116 H Carbon Dioxide Level 23 Anion Gap 16 Blood Urea Nitrogen 55 H Creatinine 1.76 H Glucose Level 107 # Calcium Level 8.7 Total Bilirubin 29.1 H Direct Bilirubin 26.50 *H Indirect Bilirubin 2.6 H Aspartate Amino Transf (AST/SGOT) 116 H Alanine Aminotransferase (ALT/SGPT) 55 Alkaline Phosphatase 465 H Total Protein 6.1 Albumin 2.5 L Globulin 3.60 H Albumin/Globulin Ratio 0.69 Medications Medications Current Medications Ondansetron HCl (Zofran Inj) 4 mg Q6H PRN IV NAUSEA AND/OR VOMITING Last administered on 01/03/17 14:52; Admin Dose 4 MG; Start 01/02/17 at 23:00 Rifaximin (Xifaxan) 550 mg BID PO Last administered on 01/29/17 09:44; Admin Dose 550 MG; Start 01/04/17 at 11:00 IV Flush (NS 10 ml) 10 ml PRN PRN IV IV PROTOCOL; Start 01/05/17 at 18:30 Prednisolone (Prelone (Ped)) 40 mg DAILY PO Last administered on 01/29/17 09: 44; Admin Dose 40 MG; Start 01/12/17 at 09:00 Citric Acid/ Sodium Citrate (Bicitra) 30 ml TID NGT Last administered on 09:44; Admin Dose 30 ML; Start 01/12/17 at 09:00 Nystatin (Nystatin Susp) 5 ml QID PO Last administered on 01/29/17 09:44; Admin Dose 5 ML; Start 01/13/17 at 17:00 Glucose (Glutose) 15 gm Q15M PRN PO DECREASED GLUCOSE; Start 01/15/17 at 18:30 Glucose (Glutose) 22.5 gm Q15M PRN PO DECREASED GLUCOSE; Start 01/15/17 at 18: 30 Dextrose (D50w Syringe) 25 ml Q15M PRN IV DECREASED GLUCOSE; Start 01/15/17 at 18:30 Dextrose (D50w Syringe) 50 ml Q15M PRN IV DECREASED GLUCOSE; Start 01/15/17 at 18:30 Glucagon (Glucagen) 1 mg Q15M PRN IM DECREASED GLUCOSE; Start 01/15/17 at 18:30 Glucose (Glutose) 15 gm Q15M PRN BUCCAL DECREASED GLUCOSE; Start 01/15/17 at 18 :30 Pentoxifylline (Trental) 400 mg DAILY PO Last administered on 01/29/17 09:44 ; Admin Dose 400 MG; Start 01/18/17 at 14:00 Diazepam (Valium) 10 mg BID PRN PO ANXIETY Last administered on 01/28/17 22: 01; Admin Dose 10 MG; Start 01/20/17 at 11:00 Lactulose (Enulose) 20 gm BID PO Last administered on 01/29/17 09:44; Admin Dose 20 GM; Start 01/20/17 at 21:00 Morphine Sulfate (morphine) 1 mg Q4H PRN IM PAIN; Start 01/23/17 at 10:00 Morphine Sulfate (morphine) 1 mg Q6 PRN IV pain Last administered on 14:41; Admin Dose 1 MG; Start 01/23/17 at 10:00 Folic Acid (Folic Acid) 1 mg DAILY PO Last administered on 01/29/17 09:44; Admin Dose 1 MG; Start 01/26/17 at 09:00 Thiamine HCl (Vitamin B1) 100 mg DAILY PO Last administered on 01/29/17 09:44 ; Admin Dose 100 MG; Start 01/26/17 at 09:00 Multivit/Ca Carb/ B Cmplx/FA/Prenat 1 tab 1 tab DAILY PO Last administered on 01/29/17 09:44; Admin Dose 1 TAB; Start 01/26/17 at 09:00 Cefepime HCl 50 ml @ 100 mls/hr Q24H IVPB Last administered on 01/28/17 22: 09; Admin Dose 100 MLS/HR; Start 01/26/17 at 21:00 Caspofungin 35 mg/ Sodium Chloride 250 ml @ 250 mls/hr Q24H IVPB Last administered on 01/28/17 13:18; Admin Dose 250 MLS/HR; Start 01/27/17 at 13: 30 Doxycycline Hyclate 100 mg/ Sodium Chloride 250 ml @ 250 mls/hr Q12 IVPB Last administered on 01/29/17 09:43; Admin Dose 250 MLS/HR; Start 01/27/17 at 15: 00 Dextrose (D5W) 1,000 ml @ 60 mls/hr [id number] IV Last administered on 12:59; Admin Dose 60 MLS/HR; Start 01/27/17 at 18:00 Lorazepam (Ativan) 0.5 mg Q6H PRN IV AGITATION/ANXIETY; Start 01/28/17 at 14: 00 Famotidine (Pepcid) 20 mg Q12 PO Last administered on 01/29/17 09:44; Admin Dose 20 MG; Start 01/28/17 at 21:00 JUAREZ JORDAN Jan 29, 2017 13:50
[2017-01-29] MEDS: morphine 2 MG INJ IV PRN ×2 (15:11→20:06)
[2017-01-29 15:34] VITALS: BP 138/63; RESP 16
[2017-01-29] MEDS ORDERED: POTASSIUM CHLORIDE (SR) 10 MEQ TAB PO ONE (18:00)
--- NOTE | 2017-01-29 18:31 | PN ---
Date/Time of Note Date/Time of Note DATE: 01/29/17 TIME: 18:28 Assessment/Plan VTE Prophylaxis VTE Prophylaxis Intervention: other Lines/Catheters IV Catheter Type (from Nrs): PICC Line Central line still needed: Yes Urinary Cath still in place: No Assessment/Plan Chief Complaint/Hosp Course # Acute on chronic liver failure likely Etoh abuse with elevated INR, Hyperbilirubenemia, low platelets, # Hepatic encephalopathy better # ETOH withdrawal S/P # ETOH pancreatitis now sbp # Non Gap Acidosis likely combination of renal failure and diarrhoea # Leukocytosis could be pancreatitis vs Alcholic hepatitis AND SBP # Hypoxic Respiratory failure s/p extubated on 01/15 # Thrombocytopenia # Anemia # s/P EGD with gastritis # Ileus s/p Small bowel follow thru which is negative, eating ok better SBP HYPERNATREMIA hypokalemia PLAN CK LABS iv fluid NEED REHAB PT OT ANTIBIOTIC kcl paracentesis unable to go home unstable Problems: Subjective 24 Hr Interval Summary ENT: no complaints Respiratory: no complaints Gastrointestinal: pain (abd+) Exam/Review of Systems Vital Signs Vitals Vital Signs Date Time Temp Pulse Resp B/P Pulse Ox O2 Delivery O2 Flow Rate FiO2 01/29/17 15:34 95.9 88 16 138/63 94 01/27/17 20:00 Room Air Intake and Output 01/28/17 01/28/17 01/29/17 15:00 23:00 07:00 Intake Total 1000 ml 1590 ml 1530 ml Output Total 650 ml 1600 ml Balance 1000 ml 940 ml -70 ml Exam Neck: supple Respiratory: clear to auscultation Cardiovascular: regular rate and rhythm Gastrointestinal: ascites (+), bowel sounds (+), soft Extremities: No edema Results Result Diagram: 01/28/17 0452 01/29/17 0501 Results 24 hrs Laboratory Tests Test 01/29/17 05:01 Prothrombin Time 25.2 H Prothrombin Time Ratio 2.0 INR International Normalized Ratio 2.26 Sodium Level 152 H Potassium Level 3.4 L Chloride Level 116 H Carbon Dioxide Level 23 Anion Gap 16 Blood Urea Nitrogen 55 H Creatinine 1.76 H Glucose Level 107 # Calcium Level 8.7 Total Bilirubin 29.1 H Direct Bilirubin 26.50 *H Indirect Bilirubin 2.6 H Aspartate Amino Transf (AST/SGOT) 116 H Alanine Aminotransferase (ALT/SGPT) 55 Alkaline Phosphatase 465 H Total Protein 6.1 Albumin 2.5 L Globulin 3.60 H Albumin/Globulin Ratio 0.69 Medications Medications Current Medications Ondansetron HCl (Zofran Inj) 4 mg Q6H PRN IV NAUSEA AND/OR VOMITING Last administered on 01/03/17 14:52; Admin Dose 4 MG; Start 01/02/17 at 23:00 Rifaximin (Xifaxan) 550 mg BID PO Last administered on 01/29/17 09:44; Admin Dose 550 MG; Start 01/04/17 at 11:00 IV Flush (NS 10 ml) 10 ml PRN PRN IV IV PROTOCOL; Start 01/05/17 at 18:30 Prednisolone (Prelone (Ped)) 40 mg DAILY PO Last administered on 01/29/17 09: 44; Admin Dose 40 MG; Start 01/12/17 at 09:00 Citric Acid/ Sodium Citrate (Bicitra) 30 ml TID NGT Last administered on 13:43; Admin Dose 30 ML; Start 01/12/17 at 09:00 Nystatin (Nystatin Susp) 5 ml QID PO Last administered on 01/29/17 13:43; Admin Dose 5 ML; Start 01/13/17 at 17:00 Glucose (Glutose) 15 gm Q15M PRN PO DECREASED GLUCOSE; Start 01/15/17 at 18:30 Glucose (Glutose) 22.5 gm Q15M PRN PO DECREASED GLUCOSE; Start 01/15/17 at 18: 30 Dextrose (D50w Syringe) 25 ml Q15M PRN IV DECREASED GLUCOSE; Start 01/15/17 at 18:30 Dextrose (D50w Syringe) 50 ml Q15M PRN IV DECREASED GLUCOSE; Start 01/15/17 at 18:30 Glucagon (Glucagen) 1 mg Q15M PRN IM DECREASED GLUCOSE; Start 01/15/17 at 18:30 Glucose (Glutose) 15 gm Q15M PRN BUCCAL DECREASED GLUCOSE; Start 01/15/17 at 18 :30 Pentoxifylline (Trental) 400 mg DAILY PO Last administered on 01/29/17 09:44 ; Admin Dose 400 MG; Start 01/18/17 at 14:00 Diazepam (Valium) 10 mg BID PRN PO ANXIETY Last administered on 01/28/17 22: 01; Admin Dose 10 MG; Start 01/20/17 at 11:00 Lactulose (Enulose) 20 gm BID PO Last administered on 01/29/17 09:44; Admin Dose 20 GM; Start 01/20/17 at 21:00 Morphine Sulfate (morphine) 1 mg Q4H PRN IM PAIN; Start 01/23/17 at 10:00 Folic Acid (Folic Acid) 1 mg DAILY PO Last administered on 01/29/17 09:44; Admin Dose 1 MG; Start 01/26/17 at 09:00 Thiamine HCl (Vitamin B1) 100 mg DAILY PO Last administered on 01/29/17 09:44 ; Admin Dose 100 MG; Start 01/26/17 at 09:00 Multivit/Ca Carb/ B Cmplx/FA/Prenat 1 tab 1 tab DAILY PO Last administered on 01/29/17 09:44; Admin Dose 1 TAB; Start 01/26/17 at 09:00 Cefepime HCl 50 ml @ 100 mls/hr Q24H IVPB Last administered on 01/28/17 22: 09; Admin Dose 100 MLS/HR; Start 01/26/17 at 21:00 Caspofungin 35 mg/ Sodium Chloride 250 ml @ 250 mls/hr Q24H IVPB Last administered on 01/29/17 13:46; Admin Dose 250 MLS/HR; Start 01/27/17 at 13: 30 Doxycycline Hyclate 100 mg/ Sodium Chloride 250 ml @ 250 mls/hr Q12 IVPB Last administered on 01/29/17 09:43; Admin Dose 250 MLS/HR; Start 01/27/17 at 15: 00 Dextrose (D5W) 1,000 ml @ 60 mls/hr [id number] IV Last administered on 15:14; Admin Dose 60 MLS/HR; Start 01/27/17 at 18:00 Lorazepam (Ativan) 0.5 mg Q6H PRN IV AGITATION/ANXIETY; Start 01/28/17 at 14: 00 Famotidine (Pepcid) 20 mg Q12 PO Last administered on 01/29/17 09:44; Admin Dose 20 MG; Start 01/28/17 at 21:00 Morphine Sulfate (morphine) 1 mg Q4 PRN IV pain; Start 10/15/17 at 17:00 JAYME BANSAL MD Jan 29, 2017 18:31
[2017-01-29 20:00] VITALS: BP 130/65; RESP 18
[2017-01-29] MEDS: CEFEPIME 1GM/50 ML (PMX) 50 ML IVPB SCH (20:03)
[2017-01-29 20:21] VITALS: BP 125/87; RESP 18
--- NOTE | 2017-01-29 23:28 | PN ---
Date/Time of Note Date/Time of Note DATE: 01/29/17 TIME: 23:26 Assessment/Plan Lines/Catheters IV Catheter Type (from [facility]): PICC Line Minaya in Place (from [facility]): No Assessment/Plan Chief Complaint/Hosp Course 1. Paralytic ileus 2nd acute processes. SBFT negative. Improved; +bowel function -Monitor 2. Acute on chronic alcoholic pancreatitis with peripancreatic fluid: CT: worsened pancreatitis -antimicrobials -Supportive measures -Judicious fluid management -Trend labs -Encourage cessation 3. Acute GI bleed from gastritis and esophageal varices secondary to alcoholism. Stable -Transfuse as needed -Supportive measures: ppi -Correct coagulopathy and platelet dysfunction 4. Anemia secondary to above: h/h stable -As above 5. Leukocytosis, multifactorial with SIRS and steroid therapy, ? infectious ( pl. effusions, atelectasis vs. pna +/- pancreatitis-worsened on CT; ?sbp); persistent -Close monitoring -follow ascitic fluid studies 6. Alcoholic hepatitis with hepatosplenomegaly; elevated LFT's (improving) -Medical and GI optimization 7. Chronic alcohol abuse with Delirium Tremens; no tremors -Encourage cessation -Sedation/intubation 8. Subcapsular liver collection possible hematoma versus other -Monitor 9. Electrolyte imbalance -Correct with replacements and fluid management 10. Alcohol withdrawal with tachypnea, tachycardia and delirium tremens; improved -supportive 11. NICOLAS: output improving. improving -judicious fluids -avoid nephrotoxic meds 12. Atelectasis vs. pna -IS -increase activity-OOB as tolerated; PT Thank you, Problems: Subjective 24 Hr Interval Summary Continues to be confused and labile. Still has shakes. Up with PT. Persistent worsening leukocytosis. No fevers, chills, sob, congested cough, n/v/d/dysuria. Exam/Review of Systems Vital Signs Vitals Vital Signs Date Time Temp Pulse Resp B/P Pulse Ox O2 Delivery O2 Flow Rate FiO2 01/29/17 20:21 98.3 18 125/87 96 Room Air 01/29/17 15:34 88 Intake and Output 01/28/17 01/28/17 01/29/17 15:00 23:00 07:00 Intake Total 1000 ml 1590 ml 1530 ml Output Total 650 ml 1600 ml Balance 1000 ml 940 ml -70 ml Exam Free Text/Dictation Constitutional: Confused Not oriented. more alert Psych: No nl mood/affect Head: atraumatic, normocephalic, No hematomas, No lacerations Eyes: EOMI, PERRL, icteric ENMT: nl external ears & nose, nl lips & teeth. Mucosa pink and dry. icteric Neck: non-tender, supple, No jvd Respiratory: No congested cough, No labored breathing Cardiovascular: No edema, No regular rate and rhythm Gastrointestinal: soft, min-tender, less distended. No rebound or guarding; rectal tube with +gas/bm Musculoskeletal: nl extremities to inspection, No joint tenderness; BLE edema Extremities: normal pulses, No calf tenderness, No cyanosis Neurological: Responsive Skin: rash or lesions (Jaundice), No diaphoresis, No nl turgor : minaya with luis output (improved; increased amount) Lymph: nl lymph nodes, nontender Results Result Diagram: 01/28/17 0452 01/29/17 0501 PETER TAMEZ MD Jan 29, 2017 23:28
[2017-01-30 02:34] VITALS: BP 107/69; RESP 18
[2017-01-30] MEDS: morphine 2 MG INJ IV PRN (03:02)
[2017-01-30 05:55] LABS: ABNORMAL IP MESSAGE 1; BASOPHIL # 0.1 10^3/ul (0.0-0.1); BASOPHILS % 0.2 % (0.0-2.0); HEMATOCRIT 26.2 % (42.0-52.0); HEMOGLOBIN 8.7 g/dl (14.0-18.0); LYMPHOCYTES # 1.7 10^3/ul (0.8-2.9); LYMPHOCYTES % 3.4 % (15.0-51.0); MEAN CORPUSCULAR HGB CONC 33.2 g/dl (32.0-37.0); MEAN CORPUSCULAR VOLUME 108.3 fl (82.0-101.0); MEAN PLATELET VOLUME 13.8 fl (7.4-10.4); MONOCYTE # 3.1 10^3/ul (0.3-0.9); MONOCYTES % 6.4 % (0.0-11.0); NEUTROPHIL # 41.7 10^3/ul (1.6-7.5); NUCLEATED RED BLOOD CELLS # 0.1 10^3/ul (0.0-0.0); NUCLEATED RED BLOOD CELLS% 0.3 /100WBC (0.0-0.0); PLATELET COUNT 84 10^3/UL (140-415); POSITIVE DIFF @See below; RED BLOOD COUNT 2.42 10^6/ul (4.70-6.10); RED CELL DISTRIBUTION WIDTH 23.1 % (11.5-14.5); WHITE BLOOD COUNT 49.1 10^3/ul (4.8-10.8)
[2017-01-30 06:24] LABS: INR 2.44; PROTIME 26.8 Sec (12.2-14.2); PT RATIO 2.1
[2017-01-30 06:25] LABS: PARTIAL THROMBOPLASTIN TIME 51.9 Sec (25.0-35.0)
[2017-01-30 06:33] LABS: ALBUMIN 2.2 g/dl (3.3-4.9); ALBUMIN/GLOBULIN RATIO 0.59; BILIRUBIN,INDIRECT 2.6 mg/dl (0-1.1); BILIRUBIN,TOTAL 2.6 mg/dl (0.2-1.3); CALCIUM 8.6 mg/dl (8.4-10.2); CREATININE 1.73 mg/dl (0.61-1.24); POTASSIUM 3.7 mmol/L (3.5-5.1); TOTAL PROTEIN 5.9 g/dl (6.1-8.1)
[2017-01-30 06:49] LABS: BILIRUBIN,DIRECT 24.3 mg/dl (0.00-0.20)
[2017-01-30 07:20] VITALS: BP 142/61; RESP 18
[2017-01-30] MEDS: RIFAXIMIN 550 MG TAB PO SCH ×2 (08:56→20:51)
[2017-01-30] MEDS: NYSTATIN SUSP 5 ML CUP PO SCH ×4 (08:56→20:51)
[2017-01-30] MEDS: CITRIC ACID/NA CITRATE 30 ML CUP NGT SCH (08:56)
[2017-01-30] MEDS: FOLIC ACID 1 MG TAB PO SCH (08:56)
[2017-01-30] MEDS: LACTULOSE 30ML CUP PO SCH ×2 (08:56→20:51)
[2017-01-30] MEDS: MULTIVIT/CA CARB/B CMPLX/FA TAB PO SCH (08:57)
[2017-01-30] MEDS: FAMOTIDINE 20 MG TAB PO SCH ×2 (08:57→20:51)
[2017-01-30] MEDS: PENTOXIFYLLINE (SR) 400 MG TAB PO SCH (08:57)
[2017-01-30] MEDS: THIAMINE 100 MG TAB PO SCH (08:57)
[2017-01-30] MEDS: BALSAM PERU/CASTOR OIL 60 GM TUBE TOP SCH ×2 (08:58→21:03)
[2017-01-30] MEDS: DOXYCYCLINE 100 MG in SOD CHLORIDE 0.9% 250 ML IVPB SCH ×2 (08:58→20:49)
[2017-01-30] MEDS: predniSOLONE (3 MG/ML PO SYG) PO SCH ×2 (09:00→17:15)
[2017-01-30] MEDS: DEXTROSE 5% 1,000 ML IV SCH (09:00)
--- NOTE | 2017-01-30 11:22 | PN ---
Date/Time of Note Date/Time of Note DATE: 01/30/17 TIME: 11:10 Assessment/Plan VTE Prophylaxis VTE Prophylaxis Intervention: contraindicated Lines/Catheters IV Catheter Type (from Nrs): PICC Line Central line still needed: Yes Urinary Cath still in place: Yes Reason Cath still needed: urinary retention Assessment/Plan Chief Complaint/Hosp Course 36 y/o with # NICOLAS likely Oliguric ATN vs HRS # Acute on chronic liver failure with alcholic hepatitis likely Etoh abuse with elevated INR, Hyperbilirubenemia, low platelets, elevated bilirubin # Hepatic encephalopathy # ETOH withdrawal on Ativan/librium tapered off # ETOH pancreatitis with Lipase 7690> trending down to 1999> trended down siginificantly # Non Gap Acidosis 2 to renal failure/diarrhoea # Leukocytosis # Hypoxic Respiratory failure s/p Intubation now extubated on 01/15 # Thrombocytopenia # Anemia likely hemodilutional : no evidence of bleeding s/p EGD with gastritis and gastroparesis on PPI and Reglan # s/P EGD with gastritis and gastroparesis on Protonix and Reglan # Ileus s/p Small bowel follow thru which is negative, f/u Surgery # Ascites s/p paracentesis with +SBP # Hypernatremia Plan - Aspiration precautions - Recheck ammonia levels - hold bictra due to hypernatremia - paracentesis today once INR Corrected - FFP today - iv abx per I.D on doxycycline, cancidas - c/w prednisolone and trental Problems: Subjective 24 Hr Interval Summary Free Text/Dictation Pt tremolous, shaky Exam/Review of Systems Vital Signs Vitals Vital Signs Date Time Temp Pulse Resp B/P Pulse Ox O2 Delivery O2 Flow Rate FiO2 01/30/17 07:20 97.3 93 18 142/61 96 01/29/17 20:21 Room Air Intake and Output 01/29/17 01/29/17 01/30/17 15:00 23:00 07:00 Intake Total 500 ml 1220 ml Output Total 750 ml 1100 ml Balance 500 ml 470 ml -1100 ml Results GENERAL: Well-developed, ill-appearing,jaundice,male who is in no distress. HEENT: Head atraumatic, normocephalic. Sclerae anicteric. Buccal mucosa dry. NECK: Supple. CHEST: Rise symmetrical. Breath sounds diminished to bases. HEART: S1, S2. ABDOMEN: Distended, soft. Bowel tones present.ascites+ EXTREMITIES: With trace edema. [place] in place and Rectal tube in place Result Diagram: 01/30/1752801/30/17528 Results 24 hrs Laboratory Tests Test 01/30/17 05:29 01/30/17 06:41 White Blood Count 49.1 H Red Blood Count 2.42 L Hemoglobin 8.7 L Hematocrit 26.2 L Mean Corpuscular Volume 108.3 H Mean Corpuscular Hemoglobin 36.0 H Mean Corpuscular Hemoglobin Concent 33.2 Red Cell Distribution Width 23.1 H Platelet Count 84 L Mean Platelet Volume 13.8 H Neutrophils % 85.0 H Lymphocytes % 3.4 L Monocytes % 6.4 Eosinophils % 0.0 Basophils % 0.2 Nucleated Red Blood Cells % 0.3 H Neutrophils # 41.7 H Lymphocytes # 1.7 Monocytes # 3.1 H Eosinophils # 0.0 Basophils # 0.1 Nucleated Red Blood Cells # 0.1 H Prothrombin Time 26.8 H Prothrombin Time Ratio 2.1 INR International Normalized Ratio 2.44 Activated Partial Thromboplast Time 51.9 H Sodium Level 150 H Potassium Level 3.7 Chloride Level 117 H Carbon Dioxide Level 23 Anion Gap 14 Blood Urea Nitrogen 55 H Creatinine 1.73 H Glucose Level 121 Calcium Level 8.6 Total Bilirubin 2.6 #H Direct Bilirubin 24.30 *H Indirect Bilirubin 2.6 H Aspartate Amino Transf (AST/SGOT) 112 H Alanine Aminotransferase (ALT/SGPT) 62 Alkaline Phosphatase 463 H Total Protein 5.9 L Albumin 2.2 L Globulin 3.70 H Albumin/Globulin Ratio 0.59 Lab Scanned Report BLOOD TRANSFUSION Medications Medications Current Medications Ondansetron HCl (Zofran Inj) 4 mg Q6H PRN IV NAUSEA AND/OR VOMITING Last administered on 01/03/17 14:52; Admin Dose 4 MG; Start 01/02/17 at 23:00 Rifaximin (Xifaxan) 550 mg BID PO Last administered on 01/30/17 08:56; Admin Dose 550 MG; Start 01/04/17 at 11:00 IV Flush (NS 10 ml) 10 ml PRN PRN IV IV PROTOCOL; Start 01/05/17 at 18:30 Prednisolone (Prelone (Ped)) 40 mg DAILY PO Last administered on 01/29/17 09: 44; Admin Dose 40 MG; Start 01/12/17 at 09:00 Citric Acid/ Sodium Citrate (Bicitra) 30 ml TID NGT Last administered on 08:56; Admin Dose 30 ML; Start 01/12/17 at 09:00 Nystatin (Nystatin Susp) 5 ml QID PO Last administered on 01/30/17 08:56; Admin Dose 5 ML; Start 01/13/17 at 17:00 Glucose (Glutose) 15 gm Q15M PRN PO DECREASED GLUCOSE; Start 01/15/17 at 18:30 Glucose (Glutose) 22.5 gm Q15M PRN PO DECREASED GLUCOSE; Start 01/15/17 at 18: 30 Dextrose (D50w Syringe) 25 ml Q15M PRN IV DECREASED GLUCOSE; Start 01/15/17 at 18:30 Dextrose (D50w Syringe) 50 ml Q15M PRN IV DECREASED GLUCOSE; Start 01/15/17 at 18:30 Glucagon (Glucagen) 1 mg Q15M PRN IM DECREASED GLUCOSE; Start 01/15/17 at 18:30 Glucose (Glutose) 15 gm Q15M PRN BUCCAL DECREASED GLUCOSE; Start 01/15/17 at 18 :30 Pentoxifylline (Trental) 400 mg DAILY PO Last administered on 01/30/17 08:57 ; Admin Dose 400 MG; Start 01/18/17 at 14:00 Diazepam (Valium) 10 mg BID PRN PO ANXIETY Last administered on 01/28/17 22: 01; Admin Dose 10 MG; Start 01/20/17 at 11:00 Lactulose (Enulose) 20 gm BID PO Last administered on 01/30/17 08:56; Admin Dose 20 GM; Start 01/20/17 at 21:00 Morphine Sulfate (morphine) 1 mg Q4H PRN IM PAIN; Start 01/23/17 at 10:00 Folic Acid (Folic Acid) 1 mg DAILY PO Last administered on 01/30/17 08:56; Admin Dose 1 MG; Start 01/26/17 at 09:00 Thiamine HCl (Vitamin B1) 100 mg DAILY PO Last administered on 01/30/17 08:57 ; Admin Dose 100 MG; Start 01/26/17 at 09:00 Multivit/Ca Carb/ B Cmplx/FA/Prenat 1 tab 1 tab DAILY PO Last administered on 01/30/17 08:57; Admin Dose 1 TAB; Start 01/26/17 at 09:00 Cefepime HCl 50 ml @ 100 mls/hr Q24H IVPB Last administered on 01/29/17 20: 03; Admin Dose 100 MLS/HR; Start 01/26/17 at 21:00 Caspofungin 35 mg/ Sodium Chloride 250 ml @ 250 mls/hr Q24H IVPB Last administered on 01/29/17 13:46; Admin Dose 250 MLS/HR; Start 01/27/17 at 13: 30 Doxycycline Hyclate 100 mg/ Sodium Chloride 250 ml @ 250 mls/hr Q12 IVPB Last administered on 01/30/17 08:58; Admin Dose 250 MLS/HR; Start 01/27/17 at 15: 00 Dextrose (D5W) 1,000 ml @ 60 mls/hr [id number] IV Last administered on 09:00; Admin Dose 60 MLS/HR; Start 01/27/17 at 18:00 Lorazepam (Ativan) 0.5 mg Q6H PRN IV AGITATION/ANXIETY; Start 01/28/17 at 14: 00 Famotidine (Pepcid) 20 mg Q12 PO Last administered on 01/30/17 08:57; Admin Dose 20 MG; Start 01/28/17 at 21:00 Morphine Sulfate (morphine) 1 mg Q4 PRN IV pain Last administered on 03:02; Admin Dose 1 MG; Start 01/29/17 at 17:00 BRAEDEN LUNSFORD MD Jan 30, 2017 11:21
[2017-01-30] MEDS: DIAZEPAM 5 MG TAB PO PRN (11:51)
--- NOTE | 2017-01-30 13:09 | PN ---
Date/Time of Note Date/Time of Note DATE: 01/30/17 TIME: 12:58 Assessment/Plan Lines/Catheters IV Catheter Type (from [facility]): PICC Line Minaya in Place (from [facility]): Yes Assessment/Plan Chief Complaint/Hosp Course 1. Paralytic ileus 2nd acute processes. SBFT negative. Improved; +bowel function -Monitor 2. Acute on chronic alcoholic pancreatitis with peripancreatic fluid: CT: worsened pancreatitis -antimicrobials -Supportive measures -Judicious fluid management -Trend labs -Encourage cessation 3. Acute GI bleed from gastritis and esophageal varices secondary to alcoholism. Stable -Transfuse as needed -Supportive measures: ppi -Correct coagulopathy and platelet dysfunction 4. Anemia secondary to above: h/h stable -As above 5. Leukocytosis, multifactorial with SIRS and steroid therapy, ? infectious( pl. effusions, atelectasis vs. pna +/- pancreatitis-worsened on CT; ?sbp); worsening -Close monitoring -follow ascitic fluid studies 6. Alcoholic hepatitis with hepatosplenomegaly; elevated LFT's (improving) -Medical and GI optimization 7. Chronic alcohol abuse with Delirium Tremens; no tremors -Encourage cessation -Sedation/intubation 8. Subcapsular liver collection possible hematoma versus other -Monitor 9. Electrolyte imbalance -Correct with replacements and fluid management 10. Alcohol withdrawal with tachypnea, tachycardia and delirium tremens; improved -supportive 11. NICOLAS: output improving -judicious fluids -avoid nephrotoxic meds 12. Atelectasis vs. pna -IS -increase activity-OOB as tolerated; PT Thank you. Patient seen and examined in collaboration with Dr. Bob Tristan. Problems: Subjective 24 Hr Interval Summary Continues to be confused. Sitter continued. Leukocytosis worsened. + rectal tube output. No fevers, chills, sob, congested cough, n/v/d/dysuria, sz. Exam/Review of Systems Vital Signs Vitals Vital Signs Date Time Temp Pulse Resp B/P Pulse Ox O2 Delivery O2 Flow Rate FiO2 01/30/17 07:20 97.3 93 18 142/61 96 01/29/17 20:21 Room Air Intake and Output 01/29/17 01/29/17 01/30/17 15:00 23:00 07:00 Intake Total 500 ml 1220 ml Output Total 750 ml 1100 ml Balance 500 ml 470 ml -1100 ml Exam Free Text/Dictation Constitutional: Confused Not oriented. more alert Psych: No nl mood/affect Head: atraumatic, normocephalic, No hematomas, No lacerations Eyes: EOMI, PERRL, icteric ENMT: nl external ears & nose, nl lips & teeth. Mucosa pink and dry. icteric Neck: non-tender, supple, No jvd Respiratory: No congested cough, No labored breathing Cardiovascular: No edema, No regular rate and rhythm Gastrointestinal: soft, min-tender, less distended. No rebound or guarding; rectal tube with +gas/bm Musculoskeletal: nl extremities to inspection, No joint tenderness; BLE edema Extremities: normal pulses, No calf tenderness, No cyanosis Neurological: Responsive Skin: rash or lesions (Jaundice), No diaphoresis, No nl turgor : minaya with luis output (improved; increased amount) Lymph: nl lymph nodes, nontender Results Result Diagram: 01/30/17 0529 01/30/17 0529 ELIO GIBBONS NP Jan 30, 2017 13:08
[2017-01-30] MEDS: CASPOFUNGIN 35 MG in SOD CHLORIDE 0.9% 250 ML IVPB SCH (13:25)
[2017-01-30 13:34] LABS: INR 2.33; PROTIME 25.8 Sec (12.2-14.2)
[2017-01-30 13:35] LABS: PARTIAL THROMBOPLASTIN TIME 47.8 Sec (25.0-35.0)
[2017-01-30 13:54] VITALS: BP 127/88; RESP 18
[2017-01-30] MEDS ORDERED: PHYTONADIONE 10 MG/ML INJ SC ONE (15:30)
--- NOTE | 2017-01-30 15:49 | CONS ---
Date/Time of Note Date/Time of Note DATE: 01/30/17 TIME: 15:40 Consultation Date/Type/Reason Admit Date/Time Jan 02, 2017 at 19:30 Initial Consult Date SUBJECTIVE: NO acute events overnight. No fevers. Jaundice. He is still confused. Comfortably resting in bed. VITAL SIGNS: 127/88 P 141 R: 18 SO2: 96% T: 98.4 LABS: WBC 49.1 ON PREDNISONE. H&H:8.7/26.2. BUN 55, Creatinine 1.73. ANTIMICROBIALS: Cefepime, Doxy, Cancidas. PHYSICAL EXAMINATION: GENERAL: Well-developed, ill-appearing,jaundice,male who is in no distress. HEENT: Head atraumatic, normocephalic. Sclerae anicteric. Buccal mucosa dry. NECK: Supple. CHEST: Rise symmetrical. Breath sounds diminished to bases. HEART: S1, S2. ABDOMEN: Distended, soft. Bowel tones present. EXTREMITIES: With trace edema. ASSESSMENT: 1. Persistent leukocytosis, possibly secondary to steroids, rule out infectious process, rule out spontaneous bacterial peritonitis. The patient is status post thoracentesis 2 days ago with fluid. White blood cell count 461 and LDH of 388, no cultures sent. 2. Acute pancreatitis. 3. Decompensated liver cirrhosis. 4. Hepatic encephalopathy. 5. Acute renal failure. 6. Recurrent ascites. S/P paracentesis. 7. Status post septic shock. 8. S/P respiratory failure. PLAN: D/C Cefepime. Start Meropenem to increase coverage for possible ESBL. Continue with Doxy and Cancidas. Continue anti-aspiration measures. GI recommendations. Type of Consultation: ID Referring Provider: BRAEDEN LUNSFORD MD Exam/Review of Systems Vital Signs Vitals Vital Signs Date Time Temp Pulse Resp B/P Pulse Ox O2 Delivery O2 Flow Rate FiO2 01/30/17 13:54 98.4 141 18 127/88 96 01/29/17 20:21 Room Air Intake and Output 01/29/17 01/29/17 01/30/17 15:00 23:00 07:00 Intake Total 500 ml 1220 ml Output Total 750 ml 1100 ml Balance 500 ml 470 ml -1100 ml Results Result Diagram: 01/30/17 0529 01/30/17 0529 Results 24 hrs Laboratory Tests Test 01/30/17 05:29 01/30/17 06:41 01/30/17 13:10 White Blood Count 49.1 H Red Blood Count 2.42 L Hemoglobin 8.7 L Hematocrit 26.2 L Mean Corpuscular Volume 108.3 H Mean Corpuscular Hemoglobin 36.0 H Mean Corpuscular Hemoglobin Concent 33.2 Red Cell Distribution Width 23.1 H Platelet Count 84 L Mean Platelet Volume 13.8 H Neutrophils % 85.0 H Lymphocytes % 3.4 L Monocytes % 6.4 Eosinophils % 0.0 Basophils % 0.2 Nucleated Red Blood Cells % 0.3 H Neutrophils # 41.7 H Lymphocytes # 1.7 Monocytes # 3.1 H Eosinophils # 0.0 Basophils # 0.1 Nucleated Red Blood Cells # 0.1 H Prothrombin Time 26.8 H 25.8 H Prothrombin Time Ratio 2.1 2.0 INR International Normalized Ratio 2.44 2.33 Activated Partial Thromboplast Time 51.9 H 47.8 H Sodium Level 150 H Potassium Level 3.7 Chloride Level 117 H Carbon Dioxide Level 23 Anion Gap 14 Blood Urea Nitrogen 55 H Creatinine 1.73 H Glucose Level 121 Calcium Level 8.6 Total Bilirubin 2.6 #H Direct Bilirubin 24.30 *H Indirect Bilirubin 2.6 H Aspartate Amino Transf (AST/SGOT) 112 H Alanine Aminotransferase (ALT/SGPT) 62 Alkaline Phosphatase 463 H Total Protein 5.9 L Albumin 2.2 L Globulin 3.70 H Albumin/Globulin Ratio 0.59 Lab Scanned Report BLOOD TRANSFUSION Ammonia 31 H Medications Medications Current Medications Ondansetron HCl (Zofran Inj) 4 mg Q6H PRN IV NAUSEA AND/OR VOMITING Last administered on 01/03/17 14:52; Admin Dose 4 MG; Start 01/02/17 at 23:00 Rifaximin (Xifaxan) 550 mg BID PO Last administered on 01/30/17 08:56; Admin Dose 550 MG; Start 01/04/17 at 11:00 IV Flush (NS 10 ml) 10 ml PRN PRN IV IV PROTOCOL; Start 01/05/17 at 18:30 Prednisolone (Prelone (Ped)) 40 mg DAILY PO Last administered on 01/29/17 09: 44; Admin Dose 40 MG; Start 01/12/17 at 09:00 Nystatin (Nystatin Susp) 5 ml QID PO Last administered on 01/30/17 08:56; Admin Dose 5 ML; Start 01/13/17 at 17:00 Glucose (Glutose) 15 gm Q15M PRN PO DECREASED GLUCOSE; Start 01/15/17 at 18:30 Glucose (Glutose) 22.5 gm Q15M PRN PO DECREASED GLUCOSE; Start 01/15/17 at 18: 30 Dextrose (D50w Syringe) 25 ml Q15M PRN IV DECREASED GLUCOSE; Start 01/15/17 at 18:30 Dextrose (D50w Syringe) 50 ml Q15M PRN IV DECREASED GLUCOSE; Start 01/15/17 at 18:30 Glucagon (Glucagen) 1 mg Q15M PRN IM DECREASED GLUCOSE; Start 01/15/17 at 18:30 Glucose (Glutose) 15 gm Q15M PRN BUCCAL DECREASED GLUCOSE; Start 01/15/17 at 18 :30 Pentoxifylline (Trental) 400 mg DAILY PO Last administered on 01/30/17 08:57 ; Admin Dose 400 MG; Start 01/18/17 at 14:00 Diazepam (Valium) 10 mg BID PRN PO ANXIETY Last administered on 01/30/17 11: 51; Admin Dose 10 MG; Start 01/20/17 at 11:00 Lactulose (Enulose) 20 gm BID PO Last administered on 01/30/17 08:56; Admin Dose 20 GM; Start 01/20/17 at 21:00 Morphine Sulfate (morphine) 1 mg Q4H PRN IM PAIN; Start 01/23/17 at 10:00 Folic Acid (Folic Acid) 1 mg DAILY PO Last administered on 01/30/17 08:56; Admin Dose 1 MG; Start 01/26/17 at 09:00 Thiamine HCl (Vitamin B1) 100 mg DAILY PO Last administered on 01/30/17 08:57 ; Admin Dose 100 MG; Start 01/26/17 at 09:00 Multivit/Ca Carb/ B Cmplx/FA/Prenat 1 tab 1 tab DAILY PO Last administered on 01/30/17 08:57; Admin Dose 1 TAB; Start 01/26/17 at 09:00 Cefepime HCl 50 ml @ 100 mls/hr Q24H IVPB Last administered on 01/29/17 20: 03; Admin Dose 100 MLS/HR; Start 01/26/17 at 21:00 Caspofungin 35 mg/ Sodium Chloride 250 ml @ 250 mls/hr Q24H IVPB Last administered on 01/30/17 13:25; Admin Dose 250 MLS/HR; Start 01/27/17 at 13: 30 Doxycycline Hyclate 100 mg/ Sodium Chloride 250 ml @ 250 mls/hr Q12 IVPB Last administered on 01/30/17 08:58; Admin Dose 250 MLS/HR; Start 01/27/17 at 15: 00 Dextrose (D5W) 1,000 ml @ 60 mls/hr [id number] IV Last administered on 09:00; Admin Dose 60 MLS/HR; Start 01/27/17 at 18:00 Lorazepam (Ativan) 0.5 mg Q6H PRN IV AGITATION/ANXIETY; Start 01/28/17 at 14: 00 Famotidine (Pepcid) 20 mg Q12 PO Last administered on 01/30/17 08:57; Admin Dose 20 MG; Start 01/28/17 at 21:00 Morphine Sulfate 1 mg 1 mg Q4 PRN IV pain Last administered on 01/30/17 03:02 ; Admin Dose 1 MG; Start 01/29/17 at 17:00 Meropenem/Sodium Chloride (Merrem 500mg/50 ml(Pmx)) 50 ml @ 100 mls/hr Q12 IVPB ; Start 01/30/17 at 21:00 Phytonadione (Vitamin K) 10 mg ONCE ONCE SC ; Start 01/30/17 at 15:30; Stop 01/30/17 at 15:31; Status JUAREZ MARTINEZ Jan 30, 2017 15:49
[2017-01-30 19:26] VITALS: BP 118/58; RESP 20
--- NOTE | 2017-01-30 20:14 | RADRPT ---
PROCEDURE: XR Chest. CLINICAL INDICATION: Pneumonia. TECHNIQUE: Chest x-ray, single view. COMPARISON: 01/23/2017. FINDINGS: The cardiac silhouette is magnified. Markedly low inspiratory lung volumes are present. Resultant c rowding of the vessels and lung markings is observed. There is no dominant focal pulmonary parenchym al opacification or evidence of layering pleural effusion. A left upper extremity PICC is is in plac e and terminates at the SVC/right atrial junction. Skeletal structures and upper abdomen are unremar kable. IMPRESSION: Markedly low inspiratory lung volumes with crowding of the vessels and lung markings. No dominant pulmonary parenchymal consolidation. RPTAT: HLST .Fani Espana MD, MD Date Time Electronically viewed and signed by .Fani Espana MD, on 01/30/2017 20:14 .T/
[2017-01-30] MEDS: LORAZEPAM 2 MG INJ IV PRN (20:49)
[2017-01-30] MEDS: MEROPENEM 500MG/50 ML (PMX) 50 ML IVPB SCH (23:06)
[2017-01-31] MEDS: DIAZEPAM 5 MG TAB PO PRN (00:14)
[2017-01-31] MEDS: CEFEPIME 1GM/50 ML (PMX) 50 ML IVPB SCH (00:15)
[2017-01-31 01:42] VITALS: BP 97/67; RESP 20
[2017-01-31] MEDS: DEXTROSE 5% 1,000 ML IV SCH ×2 (04:37→21:59)
[2017-01-31 06:36] LABS: ABNORMAL IP MESSAGE 1; HEMATOCRIT 23.7 % (42.0-52.0); HEMOGLOBIN 7.6 g/dl (14.0-18.0); MEAN CORPUSCULAR HEMOGLOBIN 35.2 pg (29.0-33.0); MEAN CORPUSCULAR HGB CONC 32.1 g/dl (32.0-37.0); MEAN CORPUSCULAR VOLUME 109.7 fl (82.0-101.0); NUCLEATED RED BLOOD CELLS% 0.5 /100WBC (0.0-0.0); PLATELET COUNT 33 10^3/UL (140-415); POSITIVE DIFF @See below; RED BLOOD COUNT 2.16 10^6/ul (4.70-6.10); RED CELL DISTRIBUTION WIDTH 24.2 % (11.5-14.5); WHITE BLOOD COUNT 43.2 10^3/ul (4.8-10.8)
[2017-01-31 06:56] LABS: PARTIAL THROMBOPLASTIN TIME 65.3 Sec (25.0-35.0)
[2017-01-31 07:00] LABS: INR 3.42; PT RATIO 2.7
[2017-01-31 07:38] VITALS: BP 119/68; RESP 18
[2017-01-31] MEDS ORDERED: PHYTONADIONE 10 MG/ML INJ SC ONE (08:30)
[2017-01-31] MEDS: RIFAXIMIN 550 MG TAB PO SCH ×2 (08:50→20:57)
[2017-01-31] MEDS: MULTIVIT/CA CARB/B CMPLX/FA TAB PO SCH (08:50)
[2017-01-31] MEDS: THIAMINE 100 MG TAB PO SCH (08:50)
[2017-01-31] MEDS: FOLIC ACID 1 MG TAB PO SCH (08:50)
[2017-01-31] MEDS: LACTULOSE 30ML CUP PO SCH ×2 (08:51→20:56)
[2017-01-31] MEDS: FAMOTIDINE 20 MG TAB PO SCH ×2 (08:51→20:57)
[2017-01-31] MEDS: NYSTATIN SUSP 5 ML CUP PO SCH ×4 (08:51→20:57)
[2017-01-31] MEDS: MEROPENEM 500MG/50 ML (PMX) 50 ML IVPB SCH (08:51)
[2017-01-31] MEDS: predniSOLONE (3 MG/ML PO SYG) PO SCH ×2 (09:00→10:39)
[2017-01-31 09:15] LABS: ANISOCYTOSIS 2+ (0-0); BURR CELLS 2+ (0-0); ERYTHROBLAST% (NRBC) (M) 2 % (0-0); MONOCYTES % (M) 6 % (0-11); PLATELET ESTIMATE DECREASED; POIKILOCYTOSIS 3+ (0-0); POLYCHROMASIA 3+ (0-0); TARGET CELLS 1+ (0-0)
[2017-01-31 09:20] LABS: ALBUMIN/GLOBULIN RATIO 0.65
[2017-01-31 09:29] LABS: CALCIUM 8.8 mg/dl (8.4-10.2); CREATININE 1.91 mg/dl (0.61-1.24); POTASSIUM 3.5 mmol/L (3.5-5.1)
[2017-01-31 09:30] LABS: ALBUMIN 2.3 g/dl (3.3-4.9); BILIRUBIN,INDIRECT 2.9 mg/dl (0-1.1); BILIRUBIN,TOTAL 28.9 mg/dl (0.2-1.3); TOTAL PROTEIN 5.8 g/dl (6.1-8.1)
[2017-01-31] MEDS: PENTOXIFYLLINE (SR) 400 MG TAB PO SCH (09:41)
[2017-01-31] MEDS: DOXYCYCLINE 100 MG in SOD CHLORIDE 0.9% 250 ML IVPB SCH (09:41)
[2017-01-31] MEDS: BALSAM PERU/CASTOR OIL 60 GM TUBE TOP SCH ×2 (09:44→21:58)
--- NOTE | 2017-01-31 12:20 | CONS ---
Date/Time of Note Date/Time of Note DATE: 01/31/17 TIME: 12:16 Assessment/Plan Assessment/Plan Additional Assessment/Plan Chest x-ray was reviewed which is totally clear. Assessment and recommendations; 1. Patient admitted with hepatic encephalopathy due to alcoholic cirrhosis status post extubation several days ago. 2. Hepatorenal syndrome with increasing serum creatinine again. 3. Anemia and now worsening thrombocytopenia. 4. Persistent severe hyperbilirubinemia. 5. Subacute bacterial peritonitis with persistent significant leukocytosis. 6. Status post upper GI bleed with stable hematocrit. Continue current supportive care. Prognosis is guarded. Consultation Date/Type/Reason Admit Date/Time Jan 02, 2017 at 19:30 Initial Consult Date 01/07/17 Type of Consultation: Pulmonary Referring Provider: BRAEDEN LUNSFORD MD 24 HR Interval Summary Free Text/Dictation Patient's condition is tenuous at best. Still exhibiting waxing and waning mental status. By the time I saw the patient the patient is sleeping and was not arousable however I did have a discussion with the patient's nurse who told me the patient was completely awake a short while ago and ate breakfast. General exam; young male, currently sleeping. Currently no distress. Exam/Review of Systems Vital Signs Vitals Vital Signs Date Time Temp Pulse Resp B/P Pulse Ox O2 Delivery O2 Flow Rate FiO2 01/31/17 07:38 97.6 92 18 119/68 94 01/29/17 20:21 Room Air Intake and Output 01/30/17 01/30/17 01/31/17 15:00 23:00 07:00 Intake Total 1380 ml 950 ml 1130 ml Output Total 600 ml 1050 ml Balance 1380 ml 350 ml 80 ml Exam HEENT exam; supple neck, no JVD. No lymphadenopathy. Midline trachea. Patient remains deeply icteric. Chest exam; clear to auscultation. S1-S2 audible, no murmurs. Regular rhythm. Abdomen exam; soft, slightly protuberant. Bowel sounds are positive. No organomegaly felt. Extremity exam; no peripheral edema. SUPERVISOR PREP exam; patient is currently sleeping. Results Result Diagram: 01/31/17 0538 01/31/17 0538 Results 24 hrs Laboratory Tests Test 01/30/17 13:10 01/31/17 05:38 Prothrombin Time 25.8 H 35.0 #H Prothrombin Time Ratio 2.0 2.7 INR International Normalized Ratio 2.33 3.42 Activated Partial Thromboplast Time 47.8 H 65.3 H Ammonia 31 H White Blood Count 43.2 H Red Blood Count 2.16 L Hemoglobin 7.6 L Hematocrit 23.7 L Mean Corpuscular Volume 109.7 H Mean Corpuscular Hemoglobin 35.2 H Mean Corpuscular Hemoglobin Concent 32.1 Red Cell Distribution Width 24.2 H Platelet Count 33 #L Mean Platelet Volume Neutrophils % Segmented Neutrophils % (Manual) 75 Band Neutrophils % (Manual) 16 H Lymphocytes % Lymphocytes % (Manual) 3 L Monocytes % Monocytes % (Manual) 6 Eosinophils % Basophils % Nucleated Red Blood Cells % 2 H Neutrophils # Neutrophils # (Manual) 35.4 H Band Neutrophils # 6.9 H Absolute Lymphocytes (Manual) 1.2 Lymphocytes # Monocytes # Absolute Monocytes (Manual) 2.5 H Eosinophils # Basophils # Nucleated Red Blood Cells # Platelet Estimate DECREASED Polychromasia 3+ Poikilocytosis 3+ Anisocytosis 2+ Macrocytosis 2+ Target Cells 1+ Sodium Level 150 H Potassium Level 3.5 Chloride Level 118 H Carbon Dioxide Level 17 L Anion Gap 19 H Blood Urea Nitrogen 60 H Creatinine 1.91 H Glucose Level 109 Calcium Level 8.8 Total Bilirubin 28.9 #H Direct Bilirubin 26.00 *H Indirect Bilirubin 2.9 H Aspartate Amino Transf (AST/SGOT) 276 #H Alanine Aminotransferase (ALT/SGPT) 71 H Alkaline Phosphatase 456 H Total Protein 5.8 L Albumin 2.3 L Globulin 3.50 H Albumin/Globulin Ratio 0.65 Medications Medications Current Medications Ondansetron HCl (Zofran Inj) 4 mg Q6H PRN IV NAUSEA AND/OR VOMITING Last administered on 01/03/17 14:52; Admin Dose 4 MG; Start 01/02/17 at 23:00 Rifaximin (Xifaxan) 550 mg BID PO Last administered on 01/31/17 08:50; Admin Dose 550 MG; Start 01/04/17 at 11:00 IV Flush (NS 10 ml) 10 ml PRN PRN IV IV PROTOCOL; Start 01/05/17 at 18:30 Prednisolone (Prelone (Ped)) 40 mg DAILY PO Last administered on 01/31/17 10: 39; Admin Dose 40 MG; Start 01/12/17 at 09:00 Nystatin (Nystatin Susp) 5 ml QID PO Last administered on 01/31/17 08:51; Admin Dose 5 ML; Start 01/13/17 at 17:00 Glucose (Glutose) 15 gm Q15M PRN PO DECREASED GLUCOSE; Start 01/15/17 at 18:30 Glucose (Glutose) 22.5 gm Q15M PRN PO DECREASED GLUCOSE; Start 01/15/17 at 18: 30 Dextrose (D50w Syringe) 25 ml Q15M PRN IV DECREASED GLUCOSE; Start 01/15/17 at 18:30 Dextrose (D50w Syringe) 50 ml Q15M PRN IV DECREASED GLUCOSE; Start 01/15/17 at 18:30 Glucagon (Glucagen) 1 mg Q15M PRN IM DECREASED GLUCOSE; Start 01/15/17 at 18:30 Glucose (Glutose) 15 gm Q15M PRN BUCCAL DECREASED GLUCOSE; Start 01/15/17 at 18 :30 Pentoxifylline (Trental) 400 mg DAILY PO Last administered on 01/31/17 09:41 ; Admin Dose 400 MG; Start 01/18/17 at 14:00 Diazepam (Valium) 10 mg BID PRN PO ANXIETY Last administered on 01/31/17 00: 14; Admin Dose 10 MG; Start 01/20/17 at 11:00 Lactulose (Enulose) 20 gm BID PO Last administered on 01/31/17 08:51; Admin Dose 20 GM; Start 01/20/17 at 21:00 Morphine Sulfate (morphine) 1 mg Q4H PRN IM PAIN; Start 01/23/17 at 10:00 Folic Acid (Folic Acid) 1 mg DAILY PO Last administered on 01/31/17 08:50; Admin Dose 1 MG; Start 01/26/17 at 09:00 Thiamine HCl (Vitamin B1) 100 mg DAILY PO Last administered on 01/31/17 08:50 ; Admin Dose 100 MG; Start 01/26/17 at 09:00 Multivit/Ca Carb/ B Cmplx/FA/Prenat 1 tab 1 tab DAILY PO Last administered on 01/31/17 08:50; Admin Dose 1 TAB; Start 01/26/17 at 09:00 Cefepime HCl 50 ml @ 100 mls/hr Q24H IVPB Last administered on 01/31/17 00: 15; Admin Dose 100 MLS/HR; Start 01/26/17 at 21:00 Caspofungin 35 mg/ Sodium Chloride 250 ml @ 250 mls/hr Q24H IVPB Last administered on 01/30/17 13:25; Admin Dose 250 MLS/HR; Start 01/27/17 at 13: 30 Doxycycline Hyclate 100 mg/ Sodium Chloride 250 ml @ 250 mls/hr Q12 IVPB Last administered on 01/31/17 09:41; Admin Dose 250 MLS/HR; Start 01/27/17 at 15: 00 Dextrose (D5W) 1,000 ml @ 60 mls/hr [id number] IV Last administered on 04:37; Admin Dose 60 MLS/HR; Start 01/27/17 at 18:00 Lorazepam (Ativan) 0.5 mg Q6H PRN IV AGITATION/ANXIETY Last administered on 20:49; Admin Dose 0.5 MG; Start 01/28/17 at 14:00 Famotidine (Pepcid) 20 mg Q12 PO Last administered on 01/31/17 08:51; Admin Dose 20 MG; Start 01/28/17 at 21:00 Morphine Sulfate 1 mg 1 mg Q4 PRN IV pain Last administered on 01/30/17 03:02 ; Admin Dose 1 MG; Start 01/29/17 at 17:00 Meropenem/Sodium Chloride (Merrem 500mg/50 ml(Pmx)) 50 ml @ 100 mls/hr Q12 IVPB Last administered on 01/31/17 08:51; Admin Dose 100 MLS/HR; Start 01/30 at 21:00 NERI MCKEON Jan 31, 2017 12:20
[2017-01-31] MEDS: CASPOFUNGIN 35 MG in SOD CHLORIDE 0.9% 250 ML IVPB SCH (13:22)
--- NOTE | 2017-01-31 13:51 | CONS ---
Date/Time of Note Date/Time of Note DATE: 01/31/17 TIME: 13:49 Consult Date/Type/Reason Admit Date/Time Jan 02, 2017 at 19:30 Initial Consult Date 01/07/17 Type of Consultation: ID Ordering Provider: BRAEDEN LUNSFORD MD Objective Vital Signs Date Time Temp Pulse Resp B/P Pulse Ox O2 Delivery O2 Flow Rate FiO2 01/31/17 07:38 97.6 92 18 119/68 94 01/29/17 20:21 Room Air Intake and Output 01/30/17 01/30/17 01/31/17 15:00 23:00 07:00 Intake Total 1380 ml 950 ml 1130 ml Output Total 600 ml 1050 ml Balance 1380 ml 350 ml 80 ml Results/Medications Result Diagram: 01/31/17 0538 01/31/17 0538 Results 24 hrs Laboratory Tests Test 01/31/17 05:38 White Blood Count 43.2 H Red Blood Count 2.16 L Hemoglobin 7.6 L Hematocrit 23.7 L Mean Corpuscular Volume 109.7 H Mean Corpuscular Hemoglobin 35.2 H Mean Corpuscular Hemoglobin Concent 32.1 Red Cell Distribution Width 24.2 H Platelet Count 33 #L Mean Platelet Volume Neutrophils % Segmented Neutrophils % (Manual) 75 Band Neutrophils % (Manual) 16 H Lymphocytes % Lymphocytes % (Manual) 3 L Monocytes % Monocytes % (Manual) 6 Eosinophils % Basophils % Nucleated Red Blood Cells % 2 H Neutrophils # Neutrophils # (Manual) 35.4 H Band Neutrophils # 6.9 H Absolute Lymphocytes (Manual) 1.2 Lymphocytes # Monocytes # Absolute Monocytes (Manual) 2.5 H Eosinophils # Basophils # Nucleated Red Blood Cells # Platelet Estimate DECREASED Polychromasia 3+ Poikilocytosis 3+ Anisocytosis 2+ Macrocytosis 2+ Target Cells 1+ Prothrombin Time 35.0 #H Prothrombin Time Ratio 2.7 INR International Normalized Ratio 3.42 Activated Partial Thromboplast Time 65.3 H Sodium Level 150 H Potassium Level 3.5 Chloride Level 118 H Carbon Dioxide Level 17 L Anion Gap 19 H Blood Urea Nitrogen 60 H Creatinine 1.91 H Glucose Level 109 Calcium Level 8.8 Total Bilirubin 28.9 #H Direct Bilirubin 26.00 *H Indirect Bilirubin 2.9 H Aspartate Amino Transf (AST/SGOT) 276 #H Alanine Aminotransferase (ALT/SGPT) 71 H Alkaline Phosphatase 456 H Total Protein 5.8 L Albumin 2.3 L Globulin 3.50 H Albumin/Globulin Ratio 0.65 Medications Current Medications Ondansetron HCl (Zofran Inj) 4 mg Q6H PRN IV NAUSEA AND/OR VOMITING Last administered on 01/03/17 14:52; Admin Dose 4 MG; Start 01/02/17 at 23:00 Rifaximin (Xifaxan) 550 mg BID PO Last administered on 01/31/17 08:50; Admin Dose 550 MG; Start 01/04/17 at 11:00 IV Flush (NS 10 ml) 10 ml PRN PRN IV IV PROTOCOL; Start 01/05/17 at 18:30 Prednisolone (Prelone (Ped)) 40 mg DAILY PO Last administered on 01/31/17 10: 39; Admin Dose 40 MG; Start 01/12/17 at 09:00 Nystatin (Nystatin Susp) 5 ml QID PO Last administered on 01/31/17 13:27; Admin Dose 5 ML; Start 01/13/17 at 17:00 Glucose (Glutose) 15 gm Q15M PRN PO DECREASED GLUCOSE; Start 01/15/17 at 18:30 Glucose (Glutose) 22.5 gm Q15M PRN PO DECREASED GLUCOSE; Start 01/15/17 at 18: 30 Dextrose (D50w Syringe) 25 ml Q15M PRN IV DECREASED GLUCOSE; Start 01/15/17 at 18:30 Dextrose (D50w Syringe) 50 ml Q15M PRN IV DECREASED GLUCOSE; Start 01/15/17 at 18:30 Glucagon (Glucagen) 1 mg Q15M PRN IM DECREASED GLUCOSE; Start 01/15/17 at 18:30 Glucose (Glutose) 15 gm Q15M PRN BUCCAL DECREASED GLUCOSE; Start 01/15/17 at 18 :30 Pentoxifylline (Trental) 400 mg DAILY PO Last administered on 01/31/17 09:41 ; Admin Dose 400 MG; Start 01/18/17 at 14:00 Diazepam (Valium) 10 mg BID PRN PO ANXIETY Last administered on 01/31/17 00: 14; Admin Dose 10 MG; Start 01/20/17 at 11:00 Lactulose (Enulose) 20 gm BID PO Last administered on 01/31/17 08:51; Admin Dose 20 GM; Start 01/20/17 at 21:00 Morphine Sulfate (morphine) 1 mg Q4H PRN IM PAIN; Start 01/23/17 at 10:00 Folic Acid (Folic Acid) 1 mg DAILY PO Last administered on 01/31/17 08:50; Admin Dose 1 MG; Start 01/26/17 at 09:00 Thiamine HCl (Vitamin B1) 100 mg DAILY PO Last administered on 01/31/17 08:50 ; Admin Dose 100 MG; Start 01/26/17 at 09:00 Multivit/Ca Carb/ B Cmplx/FA/Prenat 1 tab 1 tab DAILY PO Last administered on 01/31/17 08:50; Admin Dose 1 TAB; Start 01/26/17 at 09:00 Cefepime HCl 50 ml @ 100 mls/hr Q24H IVPB Last administered on 01/31/17 00: 15; Admin Dose 100 MLS/HR; Start 01/26/17 at 21:00 Caspofungin 35 mg/ Sodium Chloride 250 ml @ 250 mls/hr Q24H IVPB Last administered on 01/31/17 13:22; Admin Dose 250 MLS/HR; Start 01/27/17 at 13: 30 Doxycycline Hyclate 100 mg/ Sodium Chloride 250 ml @ 250 mls/hr Q12 IVPB Last administered on 01/31/17 09:41; Admin Dose 250 MLS/HR; Start 01/27/17 at 15: 00 Dextrose (D5W) 1,000 ml @ 60 mls/hr [id number] IV Last administered on 04:37; Admin Dose 60 MLS/HR; Start 01/27/17 at 18:00 Lorazepam (Ativan) 0.5 mg Q6H PRN IV AGITATION/ANXIETY Last administered on 20:49; Admin Dose 0.5 MG; Start 01/28/17 at 14:00 Famotidine (Pepcid) 20 mg Q12 PO Last administered on 01/31/17 08:51; Admin Dose 20 MG; Start 01/28/17 at 21:00 Morphine Sulfate 1 mg 1 mg Q4 PRN IV pain Last administered on 01/30/17 03:02 ; Admin Dose 1 MG; Start 01/29/17 at 17:00 Meropenem/Sodium Chloride (Merrem 500mg/50 ml(Pmx)) 50 ml @ 100 mls/hr Q12 IVPB Last administered on 01/31/17t 08:51; Admin Dose 100 MLS/HR; Start 01/30 at 21:00 Assessment/Plan Chief Complaint/Hosp Course SUBJECTIVE: No events overnight per report. No fevers. The patient is sleeping. No vomiting, no diarrhea. Looks comfortable. INDWELLINGS: The patient has a left upper extremity PICC line and rectal tube. Abx: Merrem, Doxycycline, Cancidas PHYSICAL EXAMINATION: GENERAL: Chronically ill-appearing, middle-aged man who is in no distress. HEENT: Head atraumatic, normocephalic. Sclerae anicteric. Buccal mucosa dry. NECK: Supple, trachea midline. CHEST: Rise symmetrical. Breath sounds diminished to bases. HEART: S1, S2. ABDOMEN: Distended, soft. Bowel tones hypoactive. EXTREMITIES: With trace edema. ASSESSMENT: 1. Persistent leukocytosis secondary to SBP, acute pancreatitis and also steroid induced. 2. Hepatic encephalopathy. 3. Alcoholic liver disease. 4. Recurrent ascites, status post paracentesis on admission, ==> repeated yesterday. 5. Acute renal failure, improving. 6. Hepatic encephalopathy. 7. Status post septic shock. PLAN: Remains stable, wbc decreased today, he is on broad sp coverage, GI on case, continue aspiration precautions, pulmonary/surgical rec-s Problems: ROSALIA BARKER NP Jan 31, 2017 13:51
[2017-01-31 14:32] VITALS: BP 132/78; RESP 18
--- NOTE | 2017-01-31 16:45 | PN ---
Date/Time of Note Date/Time of Note DATE: 01/31/17 TIME: 16:40 Assessment/Plan VTE Prophylaxis VTE Prophylaxis Intervention: other VTE Contraindication Reason: bleeding Lines/Catheters IV Catheter Type (from Nrsg): PICC Line Central line still needed: Yes Urinary Cath still in place: Yes Reason Cath still needed: urinary retention Assessment/Plan Chief Complaint/Hosp Course 36 y/o with # NICOLAS likely Oliguric ATN vs HRS # Acute on chronic liver failure with alcholic hepatitis likely Etoh abuse with elevated INR, Hyperbilirubenemia, low platelets, elevated bilirubin # Hepatic encephalopathy # ETOH withdrawal on Ativan/librium tapered off # ETOH pancreatitis with Lipase 7690> trending down to 1999> trended down siginificantly # Non Gap Acidosis 2 to renal failure/diarrhoea # Leukocytosis # Hypoxic Respiratory failure s/p Intubation now extubated on 01/15 # Thrombocytopenia # Anemia likely hemodilutional : no evidence of bleeding s/p EGD with gastritis and gastroparesis on PPI and Reglan # s/P EGD with gastritis and gastroparesis on Protonix and Reglan # Ileus s/p Small bowel follow thru which is negative, f/u Surgery # Ascites s/p paracentesis with +SBP # Hypernatremia Plan - For AMS : pt received ativan and valium last night, ammonia levels 30, will get CT head, FS 156 - Aspiration precautions - cnage iv abx in D5W - paracentesis today once INR Corrected, vit K Again today( received one yesterday) - iv abx per I.D on doxycycline, cancidas - c/w prednisolone and trental - repeat cx and UA Problems: Subjective 24 Hr Interval Summary Free Text/Dictation Per family pt much more sleepy today Didnt have lunch this afternnon Exam/Review of Systems Vital Signs Vitals Vital Signs Date Time Temp Pulse Resp B/P Pulse Ox O2 Delivery O2 Flow Rate FiO2 01/31/17 14:32 97.4 81 18 132/78 98 01/29/17 20:21 Room Air Intake and Output 01/30/17 01/30/17 01/31/17 15:00 23:00 07:00 Intake Total 1380 ml 950 ml 1130 ml Output Total 600 ml 1050 ml Balance 1380 ml 350 ml 80 ml Exam Results GENERAL: Well-developed, ill-appearing,jaundice,male who is in no distress. minimal response on deep sternal rub HEENT: Head atraumatic, normocephalic. Sclerae anicteric. Buccal mucosa dry. NECK: Supple. CHEST: Rise symmetrical. Breath sounds diminished to bases. HEART: S1, S2. ABDOMEN: Distended, soft. Bowel tones present.ascites+ EXTREMITIES: With trace edema. [place] in place and Rectal tube in place Results Result Diagram: 01/31/17 0538 01/31/17 0538 Results 24 hrs Laboratory Tests Test 01/31/17 05:38 01/31/17 16:11 White Blood Count 43.2 H Red Blood Count 2.16 L Hemoglobin 7.6 L Hematocrit 23.7 L Mean Corpuscular Volume 109.7 H Mean Corpuscular Hemoglobin 35.2 H Mean Corpuscular Hemoglobin Concent 32.1 Red Cell Distribution Width 24.2 H Platelet Count 33 #L Mean Platelet Volume Neutrophils % Segmented Neutrophils % (Manual) 75 Band Neutrophils % (Manual) 16 H Lymphocytes % Lymphocytes % (Manual) 3 L Monocytes % Monocytes % (Manual) 6 Eosinophils % Basophils % Nucleated Red Blood Cells % 2 H Neutrophils # Neutrophils # (Manual) 35.4 H Band Neutrophils # 6.9 H Absolute Lymphocytes (Manual) 1.2 Lymphocytes # Monocytes # Absolute Monocytes (Manual) 2.5 H Eosinophils # Basophils # Nucleated Red Blood Cells # Platelet Estimate DECREASED Polychromasia 3+ Poikilocytosis 3+ Anisocytosis 2+ Macrocytosis 2+ Target Cells 1+ Prothrombin Time 35.0 #H Prothrombin Time Ratio 2.7 INR International Normalized Ratio 3.42 Activated Partial Thromboplast Time 65.3 H Sodium Level 150 H Potassium Level 3.5 Chloride Level 118 H Carbon Dioxide Level 17 L Anion Gap 19 H Blood Urea Nitrogen 60 H Creatinine 1.91 H Glucose Level 109 Calcium Level 8.8 Total Bilirubin 28.9 #H Direct Bilirubin 26.00 *H Indirect Bilirubin 2.9 H Aspartate Amino Transf (AST/SGOT) 276 #H Alanine Aminotransferase (ALT/SGPT) 71 H Alkaline Phosphatase 456 H Total Protein 5.8 L Albumin 2.3 L Globulin 3.50 H Albumin/Globulin Ratio 0.65 Bedside Glucose 156 Medications Medications Current Medications Ondansetron HCl (Zofran Inj) 4 mg Q6H PRN IV NAUSEA AND/OR VOMITING Last administered on 01/03/17 14:52; Admin Dose 4 MG; Start 01/02/17 at 23:00 Rifaximin (Xifaxan) 550 mg BID PO Last administered on 01/31/17 08:50; Admin Dose 550 MG; Start 01/04/17 at 11:00 IV Flush (NS 10 ml) 10 ml PRN PRN IV IV PROTOCOL; Start 01/05/17 at 18:30 Prednisolone (Prelone (Ped)) 40 mg DAILY PO Last administered on 01/31/17 10: 39; Admin Dose 40 MG; Start 01/12/17 at 09:00 Nystatin (Nystatin Susp) 5 ml QID PO Last administered on 01/31/17 13:27; Admin Dose 5 ML; Start 01/13/17 at 17:00 Glucose (Glutose) 15 gm Q15M PRN PO DECREASED GLUCOSE; Start 01/15/17 at 18:30 Glucose (Glutose) 22.5 gm Q15M PRN PO DECREASED GLUCOSE; Start 01/15/17 at 18: 30 Dextrose (D50w Syringe) 25 ml Q15M PRN IV DECREASED GLUCOSE; Start 01/15/17 at 18:30 Dextrose (D50w Syringe) 50 ml Q15M PRN IV DECREASED GLUCOSE; Start 01/15/17 at 18:30 Glucagon (Glucagen) 1 mg Q15M PRN IM DECREASED GLUCOSE; Start 01/15/17 at 18:30 Glucose (Glutose) 15 gm Q15M PRN BUCCAL DECREASED GLUCOSE; Start 01/15/17 at 18 :30 Pentoxifylline (Trental) 400 mg DAILY PO Last administered on 01/31/17 09:41 ; Admin Dose 400 MG; Start 01/18/17 at 14:00 Diazepam (Valium) 10 mg BID PRN PO ANXIETY Last administered on 01/31/17 00: 14; Admin Dose 10 MG; Start 01/20/17 at 11:00 Lactulose (Enulose) 20 gm BID PO Last administered on 01/31/17 08:51; Admin Dose 20 GM; Start 01/20/17 at 21:00 Morphine Sulfate (morphine) 1 mg Q4H PRN IM PAIN; Start 01/23/17 at 10:00 Folic Acid (Folic Acid) 1 mg DAILY PO Last administered on 01/31/17 08:50; Admin Dose 1 MG; Start 01/26/17 at 09:00 Thiamine HCl (Vitamin B1) 100 mg DAILY PO Last administered on 01/31/17 08:50 ; Admin Dose 100 MG; Start 01/26/17 at 09:00 Multivit/Ca Carb/ B Cmplx/FA/Prenat 1 tab 1 tab DAILY PO Last administered on 01/31/17 08:50; Admin Dose 1 TAB; Start 01/26/17 at 09:00 Caspofungin 35 mg/ Sodium Chloride 250 ml @ 250 mls/hr Q24H IVPB Last administered on 01/31/17 13:22; Admin Dose 250 MLS/HR; Start 01/27/17 at 13: 30 Dextrose (D5W) 1,000 ml @ 60 mls/hr [id number] IV Last administered on 04:37; Admin Dose 60 MLS/HR; Start 01/27/17 at 18:00 Lorazepam (Ativan) 0.5 mg Q6H PRN IV AGITATION/ANXIETY Last administered on 20:49; Admin Dose 0.5 MG; Start 01/28/17 at 14:00 Famotidine (Pepcid) 20 mg Q12 PO Last administered on 01/31/17 08:51; Admin Dose 20 MG; Start 01/28/17 at 21:00 Morphine Sulfate 1 mg 1 mg Q4 PRN IV pain Last administered on 01/30/17 03:02 ; Admin Dose 1 MG; Start 01/29/17 at 17:00 Meropenem/Sodium Chloride 50 ml @ 100 mls/hr Q12 IVPB Last administered on 08:51; Admin Dose 100 MLS/HR; Start 01/30/17 at 21:00 Cefepime HCl 1 gm/ Dextrose 50 ml @ 100 mls/hr Q24H IVPB ; Start 01/31/17 at 21:00 Doxycycline Hyclate/Dextrose (Vibramycin/D5W) 250 ml @ 250 mls/hr Q12 IVPB ; Start 01/31/17 at 21:00 BRAEDEN LUNSFORD MD Jan 31, 2017 16:45
--- NOTE | 2017-01-31 18:25 | CONS ---
Date/Time of Note Date/Time of Note DATE: 01/31/17 TIME: 18:24 Assessment/Plan Assessment/Plan Additional Assessment/Plan IMPRESSION: 1. Delirium tremens patient is still shaky unable to stand on his feet and continues to have slurred speech 2. Hepatic encephalopathy. Better patient is now communicating with slurred speech, still confused 3. Alcoholic liver disease. Patient is on prednisolone 4. Pancreatitis. Amylase has come down . Lipase is down 5. Leukocytosis. Persistent most probably related to alcoholic hepatitis and steroid 6. Renal insufficiency. Though the urine output is good. Renal function has improved a lot with good urine output. Creatinine is coming down. 7. Pedal edema resolved 8. Thrombocytopenia better 9. Ileus, small bowel follow-through was negative 10. Patient's gastroparesis might be related to uremia better 11. Hypernatremia 12. Spontaneous bacterial peritonitis. Acetic fluid was cloudy, WBC polymorphs where greater than 250 13. Abdominal pain rule out spontaneous bacterial peritonitis Plan 1. Continue prednisolone 2. Your liquid diet, advance to solid diet, aspiration precaution 3. Patient is confused at times but more oriented than before 4. Reduce IV fluid since patient is third spacing, may need albumin. 5. Octreotide discontinued 6. We will monitor WBC, INR, total bilirubin, and creatinine on a regular basis 7. I had [id number] discussion with the mother and the family members and also with the engineer intern and machine pecan picker. 8. And is on pentoxifylline 400 mg once a day 10. Please avoid narcotics and also Ativan patient confusional state is secondary to hepatic encephalopathy 11. Abdominal paracentesis again 2.2 L of fluid removed 12. Physical therapy and discontinue Ativan, patient is unable to stand on his own for a long time. He needs physical therapist support and also a walker to hold on 13. Patient started on pentoxifylline 14. Discontinue Reglan 15. Antibiotics as per ID 16. Paracentesis today after correcting the coagulopathy if despite that continues to have pain then will get CAT scan of the abdomen to look at the pancreas. 17. Awaiting for the CT scan result, Trental has been stopped, pentoxifylline has been stopped Consultation Date/Type/Reason Admit Date/Time Jan 02, 2017 at 19:30 Type of Consultation: ID Referring Provider: BRAEDEN LUNSFORD MD 24 HR Interval Summary Free Text/Dictation Discussed with the mother patient is very sleepy. Patient had a CT scan of the head waiting for the result Exam/Review of Systems Vital Signs Vitals Vital Signs Date Time Temp Pulse Resp B/P Pulse Ox O2 Delivery O2 Flow Rate FiO2 01/31/17 14:32 97.4 81 18 132/78 98 01/29/17 20:21 Room Air Intake and Output 01/30/17 01/30/17 01/31/17 15:00 23:00 07:00 Intake Total 1380 ml 950 ml 1130 ml Output Total 600 ml 1050 ml Balance 1380 ml 350 ml 80 ml Exam Constitutional: alert, oriented, well developed Psych: nl mood/affect, no complaints Head: atraumatic, normocephalic Eyes: EOMI, PERRL, nl conjunctiva, nl lids, nl sclera ENMT: nl external ears & nose, nl lips & teeth, nl nasal mucosa & septum Neck: non-tender, supple Respiratory: clear to auscultation, normal air movement Cardiovascular: nl pulses, regular rate and rhythm Gastrointestinal: nl liver, spleen, non-tender, soft Musculoskeletal: nl extremities to inspection, nl gait and stance Extremities: normal pulses Neurological: FIELD IDENTIFICATION SPECIALIST II-XII intact, nl mental status, nl speech, nl strength Skin: nl turgor, No rash or lesions Lymph: nl lymph nodes Results Result Diagram: 01/31/17 0538 01/31/17 0538 Results 24 hrs Laboratory Tests Test 01/31/17 05:38 01/31/17 16:11 White Blood Count 43.2 H Red Blood Count 2.16 L Hemoglobin 7.6 L Hematocrit 23.7 L Mean Corpuscular Volume 109.7 H Mean Corpuscular Hemoglobin 35.2 H Mean Corpuscular Hemoglobin Concent 32.1 Red Cell Distribution Width 24.2 H Platelet Count 33 #L Mean Platelet Volume Neutrophils % Segmented Neutrophils % (Manual) 75 Band Neutrophils % (Manual) 16 H Lymphocytes % Lymphocytes % (Manual) 3 L Monocytes % Monocytes % (Manual) 6 Eosinophils % Basophils % Nucleated Red Blood Cells % 2 H Neutrophils # Neutrophils # (Manual) 35.4 H Band Neutrophils # 6.9 H Absolute Lymphocytes (Manual) 1.2 Lymphocytes # Monocytes # Absolute Monocytes (Manual) 2.5 H Eosinophils # Basophils # Nucleated Red Blood Cells # Platelet Estimate DECREASED Polychromasia 3+ Poikilocytosis 3+ Anisocytosis 2+ Macrocytosis 2+ Target Cells 1+ Prothrombin Time 35.0 #H Prothrombin Time Ratio 2.7 INR International Normalized Ratio 3.42 Activated Partial Thromboplast Time 65.3 H Sodium Level 150 H Potassium Level 3.5 Chloride Level 118 H Carbon Dioxide Level 17 L Anion Gap 19 H Blood Urea Nitrogen 60 H Creatinine 1.91 H Glucose Level 109 Calcium Level 8.8 Total Bilirubin 28.9 #H Direct Bilirubin 26.00 *H Indirect Bilirubin 2.9 H Aspartate Amino Transf (AST/SGOT) 276 #H Alanine Aminotransferase (ALT/SGPT) 71 H Alkaline Phosphatase 456 H Total Protein 5.8 L Albumin 2.3 L Globulin 3.50 H Albumin/Globulin Ratio 0.65 Bedside Glucose 156 Medications Medications Current Medications Ondansetron HCl (Zofran Inj) 4 mg Q6H PRN IV NAUSEA AND/OR VOMITING Last administered on 01/03/17 14:52; Admin Dose 4 MG; Start 01/02/17 at 23:00 Rifaximin (Xifaxan) 550 mg BID PO Last administered on 01/31/17 08:50; Admin Dose 550 MG; Start 01/04/17 at 11:00 IV Flush (NS 10 ml) 10 ml PRN PRN IV IV PROTOCOL; Start 01/05/17 at 18:30 Prednisolone (Prelone (Ped)) 40 mg DAILY PO Last administered on 01/31/17 10: 39; Admin Dose 40 MG; Start 01/12/17 at 09:00 Nystatin (Nystatin Susp) 5 ml QID PO Last administered on 01/31/17 13:27; Admin Dose 5 ML; Start 01/13/17 at 17:00 Glucose (Glutose) 15 gm Q15M PRN PO DECREASED GLUCOSE; Start 01/15/17 at 18:30 Glucose (Glutose) 22.5 gm Q15M PRN PO DECREASED GLUCOSE; Start 01/15/17 at 18: 30 Dextrose (D50w Syringe) 25 ml Q15M PRN IV DECREASED GLUCOSE; Start 01/15/17 at 18:30 Dextrose (D50w Syringe) 50 ml Q15M PRN IV DECREASED GLUCOSE; Start 01/15/17 at 18:30 Glucagon (Glucagen) 1 mg Q15M PRN IM DECREASED GLUCOSE; Start 01/15/17 at 18:30 Glucose (Glutose) 15 gm Q15M PRN BUCCAL DECREASED GLUCOSE; Start 01/15/17 at 18 :30 Pentoxifylline (Trental) 400 mg DAILY PO Last administered on 01/31/17 09:41 ; Admin Dose 400 MG; Start 01/18/17 at 14:00 Diazepam (Valium) 10 mg BID PRN PO ANXIETY Last administered on 01/31/17 00: 14; Admin Dose 10 MG; Start 01/20/17 at 11:00 Lactulose (Enulose) 20 gm BID PO Last administered on 01/31/17 08:51; Admin Dose 20 GM; Start 01/20/17 at 21:00 Morphine Sulfate (morphine) 1 mg Q4H PRN IM PAIN; Start 01/23/17 at 10:00 Folic Acid (Folic Acid) 1 mg DAILY PO Last administered on 01/31/17 08:50; Admin Dose 1 MG; Start 01/26/17 at 09:00 Thiamine HCl (Vitamin B1) 100 mg DAILY PO Last administered on 01/31/17 08:50 ; Admin Dose 100 MG; Start 01/26/17 at 09:00 Multivit/Ca Carb/ B Cmplx/FA/Prenat 1 tab 1 tab DAILY PO Last administered on 01/31/17 08:50; Admin Dose 1 TAB; Start 01/26/17 at 09:00 Caspofungin 35 mg/ Sodium Chloride 250 ml @ 250 mls/hr Q24H IVPB Last administered on 01/31/17 13:22; Admin Dose 250 MLS/HR; Start 01/27/17 at 13: 30 Dextrose (D5W) 1,000 ml @ 60 mls/hr [id number] IV Last administered on 04:37; Admin Dose 60 MLS/HR; Start 01/27/17 at 18:00 Lorazepam (Ativan) 0.5 mg Q6H PRN IV AGITATION/ANXIETY Last administered on 20:49; Admin Dose 0.5 MG; Start 01/28/17 at 14:00 Famotidine (Pepcid) 20 mg Q12 PO Last administered on 01/31/17 08:51; Admin Dose 20 MG; Start 01/28/17 at 21:00 Morphine Sulfate 1 mg 1 mg Q4 PRN IV pain Last administered on 01/30/17 03:02 ; Admin Dose 1 MG; Start 01/29/17 at 17:00 Meropenem/Sodium Chloride 50 ml @ 100 mls/hr Q12 IVPB Last administered on 08:51; Admin Dose 100 MLS/HR; Start 01/30/17 at 21:00 Cefepime HCl 1 gm/ Dextrose 50 ml @ 100 mls/hr Q24H IVPB ; Start 01/31/17 at 21:00 Doxycycline Hyclate/Dextrose (Vibramycin/D5W) 250 ml @ 250 mls/hr Q12 IVPB ; Start 01/31/17 at 21:00 LAURA CORDERO MD Jan 31, 2017 18:25
--- NOTE | 2017-01-31 18:26 | RADRPT ---
PROCEDURE: CT Brain without contrast. CLINICAL INDICATION: r/o mass/shift/bleed TECHNIQUE: A CT of the brain was performed on a [employer] 64-slice CT scanner utilizing axial imaging from the skull base through the vertex without IV contrast. Multiplanar reformatted images were made. Images were reviewed on a PACS workstation. The CTDIvol is 41.1 mGy and the DLP is 720 mGycm. One or more of the following dose reduction techniques were used: Automated exposure control. Adjustment of the mA and/or kV according to patient size. Use of iterative reconstruction technique. COMPARISON: None FINDINGS: There is no intracranial hemorrhage, mass effect, or midline shift. No extra-axial fluid collection is seen. There is diffuse cerebral and cerebellar volume loss, more than expected for age. The dens ity of the brain is normal, and the rai white matter differentiation appears well-preserved. The v isualized paranasal sinuses and osseous structures are grossly unremarkable. IMPRESSION: 1. No evidence of acute intracranial pathology. 2. Diffuse cerebral and cerebellar volume loss, more than expected for age. Physician Matthias Date Time Electronically viewed and signed by Physician Matthias on 01/31/2017 18:26 ML/
[2017-01-31 19:39] VITALS: BP 120/69; RESP 18
[2017-01-31] MEDS ORDERED: CEFEPIME HCL 1 GM in DEXTROSE 5% 50 ML IVPB SCH (21:00)
[2017-01-31] MEDS: DOXYCYCLINE 100 MG in DEXTROSE 5% 250 ML IVPB SCH (21:58)
--- NOTE | 2017-01-31 22:55 | PN ---
Date/Time of Note Date/Time of Note DATE: 01/31/17 TIME: 22:55 Assessment/Plan Lines/Catheters IV Catheter Type (from [facility]): PICC Line Minaya in Place (from [facility]): Yes Assessment/Plan Chief Complaint/Hosp Course 1. Paralytic ileus 2nd acute processes. SBFT negative. Improved; +bowel function -Monitor 2. Acute on chronic alcoholic pancreatitis with peripancreatic fluid: CT: worsened pancreatitis -antimicrobials -Supportive measures -Judicious fluid management -Trend labs -Encourage cessation 3. Acute GI bleed from gastritis and esophageal varices secondary to alcoholism. Stable -Transfuse as needed -Supportive measures: ppi -Correct coagulopathy and platelet dysfunction 4. Anemia secondary to above: h/h stable -As above 5. Leukocytosis, multifactorial with SIRS and steroid therapy, ? infectious( pl. effusions, atelectasis vs. pna +/- pancreatitis-worsened on CT; ?sbp); worsening -Close monitoring -follow ascitic fluid studies 6. Alcoholic hepatitis with hepatosplenomegaly; elevated LFT's (improving) -Medical and GI optimization 7. Chronic alcohol abuse with Delirium Tremens; no tremors -Encourage cessation -Sedation/intubation 8. Subcapsular liver collection possible hematoma versus other -Monitor 9. Electrolyte imbalance -Correct with replacements and fluid management 10. Alcohol withdrawal with tachypnea, tachycardia and delirium tremens; improved -supportive 11. NICOLAS: output improving -judicious fluids -avoid nephrotoxic meds 12. Atelectasis vs. pna -IS -increase activity-OOB as tolerated; PT Thank you. Patient seen and examined in collaboration with Dr. Bob Tristan. Problems: Subjective 24 Hr Interval Summary Somnolent. Intermittent tachycardia. No fevers, chills, sob, congested cough, cp , palpitations, bateman, dizziness, n/v/d/dysuria. Exam/Review of Systems Vital Signs Vitals Vital Signs Date Time Temp Pulse Resp B/P Pulse Ox O2 Delivery O2 Flow Rate FiO2 02/11/17 23:55 79 20 100 40 02/11/17 22:05 97/54 Mechanical Ventilator 02/11/17 20:00 98.7 Intake and Output 02/11/17 02/11/17 02/12/17 15:00 23:00 07:00 Intake Total 1166.86 ml 400.0 ml Output Total 1035 ml 12 ml Balance 131.86 ml 388.0 ml Exam Free Text/Dictation Constitutional: Confused Not oriented. more alert Psych: No nl mood/affect Head: atraumatic, normocephalic, No hematomas, No lacerations Eyes: EOMI, PERRL, icteric ENMT: nl external ears & nose, nl lips & teeth. Mucosa pink and dry. icteric Neck: non-tender, supple, No jvd Respiratory: No congested cough, No labored breathing Cardiovascular: No edema, No regular rate and rhythm Gastrointestinal: soft, min-tender, less distended. No rebound or guarding; rectal tube with +gas/bm Musculoskeletal: nl extremities to inspection, No joint tenderness; BLE edema Extremities: normal pulses, No calf tenderness, No cyanosis Neurological: Responsive Skin: rash or lesions (Jaundice), No diaphoresis, No nl turgor : minaya with luis output Lymph: nl lymph nodes, nontender Results Result Diagram: 02/11/17 1759 02/11/17 1759 ELIO GIBBONS NP Jan 31, 2017 22:55
[2017-02-01 02:03] VITALS: BP 119/70; RESP 18
[2017-02-01 05:38] LABS: ABNORMAL IP MESSAGE 1; BASOPHIL # 0.1 10^3/ul (0.0-0.1); BASOPHILS % 0.1 % (0.0-2.0); HEMATOCRIT 24.5 % (42.0-52.0); LYMPHOCYTES # 1.4 10^3/ul (0.8-2.9); LYMPHOCYTES % 3.2 % (15.0-51.0); MEAN CORPUSCULAR HEMOGLOBIN 35.4 pg (29.0-33.0); MEAN CORPUSCULAR HGB CONC 32.7 g/dl (32.0-37.0); MEAN CORPUSCULAR VOLUME 108.4 fl (82.0-101.0); MONOCYTES % 4.6 % (0.0-11.0); NEUTROPHIL # 38.9 10^3/ul (1.6-7.5); NEUTROPHILS % 89.1 % (39.0-77.0); NUCLEATED RED BLOOD CELLS # 0.2 10^3/ul (0.0-0.0); NUCLEATED RED BLOOD CELLS% 0.4 /100WBC (0.0-0.0); POSITIVE DIFF @See below; RED BLOOD COUNT 2.26 10^6/ul (4.70-6.10); RED CELL DISTRIBUTION WIDTH 23.6 % (11.5-14.5); WHITE BLOOD COUNT 43.6 10^3/ul (4.8-10.8)
[2017-02-01 05:43] LABS: PLATELET COUNT 54 10^3/UL (140-415)
[2017-02-01 06:41] LABS: ALBUMIN 2.1 g/dl (3.3-4.9); ALBUMIN/GLOBULIN RATIO 0.63; BILIRUBIN,INDIRECT 2.2 mg/dl (0-1.1); BILIRUBIN,TOTAL 26.5 mg/dl (0.2-1.3); CALCIUM 8.1 mg/dl (8.4-10.2); CREATININE 1.68 mg/dl (0.61-1.24); TOTAL PROTEIN 5.4 g/dl (6.1-8.1)
[2017-02-01 07:02] LABS: POTASSIUM 2.9 mmol/L (3.5-5.1)
[2017-02-01 07:03] LABS: BILIRUBIN,DIRECT 24.3 mg/dl (0.00-0.20)
[2017-02-01 07:22] VITALS: BP 117/67; RESP 18
[2017-02-01] MEDS: BALSAM PERU/CASTOR OIL 60 GM TUBE TOP SCH ×2 (09:00→22:33)
[2017-02-01] MEDS: DOXYCYCLINE 100 MG in DEXTROSE 5% 250 ML IVPB SCH ×2 (10:14→22:34)
[2017-02-01] MEDS: LACTULOSE 30ML CUP PO SCH ×2 (10:14→22:33)
[2017-02-01] MEDS: NYSTATIN SUSP 5 ML CUP PO SCH ×4 (10:14→22:33)
[2017-02-01] MEDS: THIAMINE 100 MG TAB PO SCH (10:14)
[2017-02-01] MEDS: RIFAXIMIN 550 MG TAB PO SCH ×2 (10:14→22:33)
[2017-02-01] MEDS: predniSOLONE (3 MG/ML PO SYG) PO SCH (10:15)
[2017-02-01] MEDS: FOLIC ACID 1 MG TAB PO SCH (10:15)
[2017-02-01] MEDS: POTASSIUM CHLORIDE 250 ML IVPB SCH ×2 (10:15→14:17)
[2017-02-01] MEDS: FAMOTIDINE 20 MG TAB PO SCH ×2 (10:15→22:33)
[2017-02-01] MEDS: MULTIVIT/CA CARB/B CMPLX/FA TAB PO SCH (10:15)
[2017-02-01 11:02] LABS: INR 3.11; PROTIME 32.5 Sec (12.2-14.2); PT RATIO 2.5
--- NOTE | 2017-02-01 11:31 | PN ---
Date/Time of Note Date/Time of Note DATE: 02/01/17 TIME: 11:24 Assessment/Plan VTE Prophylaxis VTE Prophylaxis Intervention: contraindicated Lines/Catheters IV Catheter Type (from Nrs): PICC Line Central line still needed: Yes Urinary Cath still in place: Yes (condom catheter) Reason Cath still needed: urinary retention Assessment/Plan Chief Complaint/Hosp Course 36 y/o with # NICOLAS likely Oliguric ATN vs HRS # Acute on chronic liver failure with alcholic hepatitis likely Etoh abuse with elevated INR, Hyperbilirubenemia, low platelets, elevated bilirubin # Hepatic encephalopathy # ETOH withdrawal on Ativan/librium tapered off # ETOH pancreatitis with Lipase 7690> trending down to 1999> trended down siginificantly # Non Gap Acidosis 2 to renal failure/diarrhoea # Leukocytosis # Hypoxic Respiratory failure s/p Intubation now extubated on 01/15 # Thrombocytopenia # Anemia likely hemodilutional : no evidence of bleeding s/p EGD with gastritis and gastroparesis on PPI and Reglan # s/P EGD with gastritis and gastroparesis on Protonix and Reglan # Ileus s/p Small bowel follow thru which is negative, f/u Surgery # Ascites s/p paracentesis with +SBP # Hypernatremia resolved after iv switched in D5W # Hypokalemia Plan - For AMS : pt received ativan and valium last night, ammonia levels 30 - CT head negative - Aspiration precautions - paracentesis today once INR Corrected s/p Vit K - iv abx per I.D on doxycycline, cancidas and Meropenam - c/w prednisolone and trental per GI - PT - Replete K - Pt still requires Hospital care, very weak, debilitated, on 3 abx, bilirubin still 24,actively followed by consultants Problems: Subjective 24 Hr Interval Summary Free Text/Dictation Pt is much more awake today CT head negative for mass/shift /bleed Exam/Review of Systems Vital Signs Vitals Vital Signs Date Time Temp Pulse Resp B/P Pulse Ox O2 Delivery O2 Flow Rate FiO2 02/01/17 07:22 98.0 65 18 117/67 96 01/29/17 20:21 Room Air Intake and Output 01/31/17 01/31/17 02/01/17 15:00 23:00 07:00 Intake Total 300 ml 1630 ml 300 ml Output Total 850 ml 550 ml Balance 300 ml 780 ml -250 ml Exam ENERAL: Well-developed, ill-appearing,jaundice,male who is in no distress.[place], alert HEENT: Head atraumatic, normocephalic. Sclerae anicteric. Buccal mucosa dry. NECK: Supple. CHEST: Rise symmetrical. Breath sounds diminished to bases. HEART: S1, S2. ABDOMEN: Distended, soft. Bowel tones present.ascites+ EXTREMITIES: With trace edema. [place] in place and Rectal tube in place Results Result Diagram: 02/01/1752302/01/17523 Results 24 hrs Laboratory Tests Test 01/31/17 16:11 02/01/17 05:24 02/01/17 10:31 Bedside Glucose 156 White Blood Count 43.6 H Red Blood Count 2.26 L Hemoglobin 8.0 L Hematocrit 24.5 L Mean Corpuscular Volume 108.4 H Mean Corpuscular Hemoglobin 35.4 H Mean Corpuscular Hemoglobin Concent 32.7 Red Cell Distribution Width 23.6 H Platelet Count 54 #L Mean Platelet Volume Neutrophils % 89.1 H Lymphocytes % 3.2 L Monocytes % 4.6 Eosinophils % 0.0 Basophils % 0.1 Nucleated Red Blood Cells % 0.4 H Neutrophils # 38.9 H Lymphocytes # 1.4 Monocytes # 2.0 H Eosinophils # 0.0 Basophils # 0.1 Nucleated Red Blood Cells # 0.2 H Sodium Level 143 Potassium Level 2.9 *L Chloride Level 113 H Carbon Dioxide Level 18 L Anion Gap 15 Blood Urea Nitrogen 59 H Creatinine 1.68 H Glucose Level 263 #H Calcium Level 8.1 L Total Bilirubin 26.5 H Direct Bilirubin 24.30 *H Indirect Bilirubin 2.2 H Aspartate Amino Transf (AST/SGOT) 139 H Alanine Aminotransferase (ALT/SGPT) 68 Alkaline Phosphatase 487 H Total Protein 5.4 L Albumin 2.1 L Globulin 3.30 H Albumin/Globulin Ratio 0.63 Prothrombin Time 32.5 H Prothrombin Time Ratio 2.5 INR International Normalized Ratio 3.11 Medications Medications Current Medications Ondansetron HCl (Zofran Inj) 4 mg Q6H PRN IV NAUSEA AND/OR VOMITING Last administered on 01/03/17t 14:52; Admin Dose 4 MG; Start 01/02/17 at 23:00 Rifaximin (Xifaxan) 550 mg BID PO Last administered on 02/01/17 10:14; Admin Dose 550 MG; Start 01/04/17 at 11:00 IV Flush (NS 10 ml) 10 ml PRN PRN IV IV PROTOCOL; Start 01/05/17 at 18:30 Prednisolone (Prelone (Ped)) 40 mg DAILY PO Last administered on 02/01/17 10: 15; Admin Dose 40 MG; Start 01/12/17 at 09:00 Nystatin (Nystatin Susp) 5 ml QID PO Last administered on 02/01/17 10:14; Admin Dose 5 ML; Start 01/13/17 at 17:00 Glucose (Glutose) 15 gm Q15M PRN PO DECREASED GLUCOSE; Start 01/15/17 at 18:30 Glucose (Glutose) 22.5 gm Q15M PRN PO DECREASED GLUCOSE; Start 01/15/17 at 18: 30 Dextrose (D50w Syringe) 25 ml Q15M PRN IV DECREASED GLUCOSE; Start 01/15/17 at 18:30 Dextrose (D50w Syringe) 50 ml Q15M PRN IV DECREASED GLUCOSE; Start 01/15/17 at 18:30 Glucagon (Glucagen) 1 mg Q15M PRN IM DECREASED GLUCOSE; Start 01/15/17 at 18:30 Glucose (Glutose) 15 gm Q15M PRN BUCCAL DECREASED GLUCOSE; Start 01/15/17 at 18 :30 Diazepam (Valium) 10 mg BID PRN PO ANXIETY Last administered on 01/31/17 00: 14; Admin Dose 10 MG; Start 01/20/17 at 11:00 Lactulose (Enulose) 20 gm BID PO Last administered on 02/01/17 10:14; Admin Dose 20 GM; Start 01/20/17 at 21:00 Morphine Sulfate (morphine) 1 mg Q4H PRN IM PAIN; Start 01/23/17 at 10:00 Folic Acid (Folic Acid) 1 mg DAILY PO Last administered on 02/01/17 10:15; Admin Dose 1 MG; Start 01/26/17 at 09:00 Thiamine HCl (Vitamin B1) 100 mg DAILY PO Last administered on 02/01/17 10:14 ; Admin Dose 100 MG; Start 01/26/17 at 09:00 Multivit/Ca Carb/ B Cmplx/FA/Prenat 1 tab 1 tab DAILY PO Last administered on 02/01/17 10:15; Admin Dose 1 TAB; Start 01/26/17 at 09:00 Caspofungin/ Sodium Chloride (Cancidas/NS) 250 ml @ 250 mls/hr Q24H IVPB Last administered on 01/31/17 13:22; Admin Dose 250 MLS/HR; Start 01/27/17 at 13: 30 Lorazepam (Ativan) 0.5 mg Q6H PRN IV AGITATION/ANXIETY Last administered on 20:49; Admin Dose 0.5 MG; Start 01/28/17 at 14:00 Famotidine (Pepcid) 20 mg Q12 PO Last administered on 02/01/17 10:15; Admin Dose 20 MG; Start 01/28/17 at 21:00 Morphine Sulfate 1 mg 1 mg Q4 PRN IV pain Last administered on 01/30/17 03:02 ; Admin Dose 1 MG; Start 01/29/17 at 17:00 Doxycycline Hyclate 100 mg/ Dextrose 250 ml @ 250 mls/hr Q12 IVPB Last administered on 02/01/17 10:14; Admin Dose 250 MLS/HR; Start 01/31/17 at 21: 00 Potassium Chloride (KCl 40 MEQ/250 ML NS) 250 ml @ 62.5 mls/hr Q4H IVPB Last administered on 02/01/17 10:15; Admin Dose 62.5 MLS/HR; Start 02/01/17 at 09: 00; Stop 02/01/17 at 16:59 BRAEDEN LUNSFORD MD Feb 01, 2017 11:31
--- NOTE | 2017-02-01 12:20 | CONS ---
Date/Time of Note Date/Time of Note DATE: 02/01/17 TIME: 12:18 Assessment/Plan Assessment/Plan Additional Assessment/Plan Assessment and recommendations; 1. Patient admitted with severe hepatic encephalopathy leading to respiratory. Patient has been extubated several days ago and has exhibited stable clinical status except for waxing and waning mental status. 2. Anemia and thrombocytopenia. Platelet count today has improved. 3. Hepatorenal syndrome with acute renal failure, however patient did not require dialysis. Serum creatinine also has improved slightly today. 4. Persistently altered mental status due to ongoing hepatic encephalopathy. Patient however is awake and responds appropriately but is exhibiting slurred speech. 5. Subacute bacterial peritonitis. 6. Persistent severe hyperbilirubinemia. 7. Persistent leukocytosis. Continue current supportive care. I did have a detailed discussion patient's mother yesterday and answered all her questions. Consultation Date/Type/Reason Admit Date/Time Jan 02, 2017 at 19:30 Initial Consult Date 01/07/17 Type of Consultation: Pulmonary Referring Provider: BRAEDEN LUNSFORD MD 24 HR Interval Summary Free Text/Dictation Patient's condition appears improved today. Patient is more responsive and awake. Has remained hemodynamically stable. General exam; young male, awake, currently in no distress. Patient answering questions appropriately but has slurred speech. Exam/Review of Systems Vital Signs Vitals Vital Signs Date Time Temp Pulse Resp B/P Pulse Ox O2 Delivery O2 Flow Rate FiO2 02/01/17 07:22 98.0 65 18 117/67 96 01/29/17 20:21 Room Air Intake and Output 01/31/17 01/31/17 02/01/17 15:00 23:00 07:00 Intake Total 300 ml 1630 ml 300 ml Output Total 850 ml 550 ml Balance 300 ml 780 ml -250 ml Exam HEENT exam; supple neck, no JVD. No lymphadenopathy. Midline trachea. No thyromegaly. No obvious oral bleeding seen. Pharynx is clear. Patient remains deeply icteric. Chest exam; diminished but clear breath sounds. S1-S2 audible, no murmurs. Regular rhythm. Abdomen exam; soft, nontender. No organomegaly. Bowel sounds audible. There is no fluid thrill. Extremity exam; no peripheral edema. BED SETTER exam; patient follows simple commands and moves all 4 extremities. Results Result Diagram: 10/18/17 0524 10/18/17 0524 Results 24 hrs Laboratory Tests Test 01/31/17 16:11 02/01/17 05:24 02/01/17 10:31 Bedside Glucose 156 White Blood Count 43.6 H Red Blood Count 2.26 L Hemoglobin 8.0 L Hematocrit 24.5 L Mean Corpuscular Volume 108.4 H Mean Corpuscular Hemoglobin 35.4 H Mean Corpuscular Hemoglobin Concent 32.7 Red Cell Distribution Width 23.6 H Platelet Count 54 #L Mean Platelet Volume Neutrophils % 89.1 H Lymphocytes % 3.2 L Monocytes % 4.6 Eosinophils % 0.0 Basophils % 0.1 Nucleated Red Blood Cells % 0.4 H Neutrophils # 38.9 H Lymphocytes # 1.4 Monocytes # 2.0 H Eosinophils # 0.0 Basophils # 0.1 Nucleated Red Blood Cells # 0.2 H Sodium Level 143 Potassium Level 2.9 *L Chloride Level 113 H Carbon Dioxide Level 18 L Anion Gap 15 Blood Urea Nitrogen 59 H Creatinine 1.68 H Glucose Level 263 #H Calcium Level 8.1 L Total Bilirubin 26.5 H Direct Bilirubin 24.30 *H Indirect Bilirubin 2.2 H Aspartate Amino Transf (AST/SGOT) 139 H Alanine Aminotransferase (ALT/SGPT) 68 Alkaline Phosphatase 487 H Total Protein 5.4 L Albumin 2.1 L Globulin 3.30 H Albumin/Globulin Ratio 0.63 Prothrombin Time 32.5 H Prothrombin Time Ratio 2.5 INR International Normalized Ratio 3.11 Medications Medications Current Medications Ondansetron HCl (Zofran Inj) 4 mg Q6H PRN IV NAUSEA AND/OR VOMITING Last administered on 01/03/17 14:52; Admin Dose 4 MG; Start 01/02/17 at 23:00 Rifaximin (Xifaxan) 550 mg BID PO Last administered on 02/01/17 10:14; Admin Dose 550 MG; Start 01/04/17 at 11:00 IV Flush (NS 10 ml) 10 ml PRN PRN IV IV PROTOCOL; Start 01/05/17 at 18:30 Prednisolone (Prelone (Ped)) 40 mg DAILY PO Last administered on 02/01/17 10: 15; Admin Dose 40 MG; Start 01/12/17 at 09:00 Nystatin (Nystatin Susp) 5 ml QID PO Last administered on 10/18/17at 10:14; Admin Dose 5 ML; Start 01/13/17 at 17:00 Glucose (Glutose) 15 gm Q15M PRN PO DECREASED GLUCOSE; Start 01/15/17 at 18:30 Glucose (Glutose) 22.5 gm Q15M PRN PO DECREASED GLUCOSE; Start 01/15/17 at 18: 30 Dextrose (D50w Syringe) 25 ml Q15M PRN IV DECREASED GLUCOSE; Start 01/15/17 at 18:30 Dextrose (D50w Syringe) 50 ml Q15M PRN IV DECREASED GLUCOSE; Start 01/15/17 at 18:30 Glucagon (Glucagen) 1 mg Q15M PRN IM DECREASED GLUCOSE; Start 01/15/17 at 18:30 Glucose (Glutose) 15 gm Q15M PRN BUCCAL DECREASED GLUCOSE; Start 01/15/17 at 18 :30 Diazepam (Valium) 10 mg BID PRN PO ANXIETY Last administered on 01/31/17 00: 14; Admin Dose 10 MG; Start 01/20/17 at 11:00 Lactulose (Enulose) 20 gm BID PO Last administered on 02/01/17 10:14; Admin Dose 20 GM; Start 01/20/17 at 21:00 Morphine Sulfate (morphine) 1 mg Q4H PRN IM PAIN; Start 01/23/17 at 10:00 Folic Acid (Folic Acid) 1 mg DAILY PO Last administered on 02/01/17 10:15; Admin Dose 1 MG; Start 01/26/17 at 09:00 Thiamine HCl (Vitamin B1) 100 mg DAILY PO Last administered on 02/01/17 10:14 ; Admin Dose 100 MG; Start 01/26/17 at 09:00 Multivit/Ca Carb/ B Cmplx/FA/Prenat 1 tab 1 tab DAILY PO Last administered on 02/01/17 10:15; Admin Dose 1 TAB; Start 01/26/17 at 09:00 Caspofungin/ Sodium Chloride (Cancidas/NS) 250 ml @ 250 mls/hr Q24H IVPB Last administered on 01/31/17 13:22; Admin Dose 250 MLS/HR; Start 01/27/17 at 13: 30 Lorazepam (Ativan) 0.5 mg Q6H PRN IV AGITATION/ANXIETY Last administered on 20:49; Admin Dose 0.5 MG; Start 01/28/17 at 14:00 Famotidine (Pepcid) 20 mg Q12 PO Last administered on 02/01/17 10:15; Admin Dose 20 MG; Start 01/28/17 at 21:00 Morphine Sulfate 1 mg 1 mg Q4 PRN IV pain Last administered on 01/30/17 03:02 ; Admin Dose 1 MG; Start 01/29/17 at 17:00 Doxycycline Hyclate 100 mg/ Dextrose 250 ml @ 250 mls/hr Q12 IVPB Last administered on 02/01/17 10:14; Admin Dose 250 MLS/HR; Start 01/31/17 at 21: 00 Potassium Chloride 250 ml @ 62.5 mls/hr Q4H IVPB Last administered on 10:15; Admin Dose 62.5 MLS/HR; Start 02/01/17 at 09:00; Stop 02/01/17 at 16:59 Meropenem/Sodium Chloride (Merrem 1 Gm/50 ml (Pmx)) 50 ml @ 100 mls/hr Q12 IVPB ; Start 02/01/17 at 21:00 NERI MCKEON Feb 01, 2017 12:20
--- NOTE | 2017-02-01 12:54 | CONS ---
Date/Time of Note Date/Time of Note DATE: 02/01/17 TIME: 12:52 Consult Date/Type/Reason Admit Date/Time Jan 02, 2017 at 19:30 Initial Consult Date 01/07/17 Type of Consultation: id Ordering Provider: BRAEDEN LUNSFORD MD Objective Vital Signs Date Time Temp Pulse Resp B/P Pulse Ox O2 Delivery O2 Flow Rate FiO2 02/01/17 07:22 98.0 65 18 117/67 96 01/29/17 20:21 Room Air Intake and Output 01/31/17 01/31/17 02/01/17 15:00 23:00 07:00 Intake Total 300 ml 1630 ml 300 ml Output Total 850 ml 550 ml Balance 300 ml 780 ml -250 ml Results/Medications Result Diagram: 02/01/1752302/01/17 0524 Results 24 hrs Laboratory Tests Test 01/31/17 16:11 02/01/17 05:24 02/01/17 10:31 Bedside Glucose 156 White Blood Count 43.6 H Red Blood Count 2.26 L Hemoglobin 8.0 L Hematocrit 24.5 L Mean Corpuscular Volume 108.4 H Mean Corpuscular Hemoglobin 35.4 H Mean Corpuscular Hemoglobin Concent 32.7 Red Cell Distribution Width 23.6 H Platelet Count 54 #L Mean Platelet Volume Neutrophils % 89.1 H Lymphocytes % 3.2 L Monocytes % 4.6 Eosinophils % 0.0 Basophils % 0.1 Nucleated Red Blood Cells % 0.4 H Neutrophils # 38.9 H Lymphocytes # 1.4 Monocytes # 2.0 H Eosinophils # 0.0 Basophils # 0.1 Nucleated Red Blood Cells # 0.2 H Sodium Level 143 Potassium Level 2.9 *L Chloride Level 113 H Carbon Dioxide Level 18 L Anion Gap 15 Blood Urea Nitrogen 59 H Creatinine 1.68 H Glucose Level 263 #H Calcium Level 8.1 L Total Bilirubin 26.5 H Direct Bilirubin 24.30 *H Indirect Bilirubin 2.2 H Aspartate Amino Transf (AST/SGOT) 139 H Alanine Aminotransferase (ALT/SGPT) 68 Alkaline Phosphatase 487 H Total Protein 5.4 L Albumin 2.1 L Globulin 3.30 H Albumin/Globulin Ratio 0.63 Prothrombin Time 32.5 H Prothrombin Time Ratio 2.5 INR International Normalized Ratio 3.11 Medications Current Medications Ondansetron HCl (Zofran Inj) 4 mg Q6H PRN IV NAUSEA AND/OR VOMITING Last administered on 01/03/17 14:52; Admin Dose 4 MG; Start 01/02/17 at 23:00 Rifaximin (Xifaxan) 550 mg BID PO Last administered on 02/01/17 10:14; Admin Dose 550 MG; Start 01/04/17 at 11:00 IV Flush (NS 10 ml) 10 ml PRN PRN IV IV PROTOCOL; Start 01/05/17 at 18:30 Prednisolone (Prelone (Ped)) 40 mg DAILY PO Last administered on 02/01/17 10: 15; Admin Dose 40 MG; Start 01/12/17 at 09:00 Nystatin (Nystatin Susp) 5 ml QID PO Last administered on 02/01/17 10:14; Admin Dose 5 ML; Start 01/13/17 at 17:00 Glucose (Glutose) 15 gm Q15M PRN PO DECREASED GLUCOSE; Start 01/15/17 at 18:30 Glucose (Glutose) 22.5 gm Q15M PRN PO DECREASED GLUCOSE; Start 01/15/17 at 18: 30 Dextrose (D50w Syringe) 25 ml Q15M PRN IV DECREASED GLUCOSE; Start 01/15/17 at 18:30 Dextrose (D50w Syringe) 50 ml Q15M PRN IV DECREASED GLUCOSE; Start 01/15/17 at 18:30 Glucagon (Glucagen) 1 mg Q15M PRN IM DECREASED GLUCOSE; Start 01/15/17 at 18:30 Glucose (Glutose) 15 gm Q15M PRN BUCCAL DECREASED GLUCOSE; Start 01/15/17 at 18 :30 Diazepam (Valium) 10 mg BID PRN PO ANXIETY Last administered on 01/31/17 00: 14; Admin Dose 10 MG; Start 01/20/17 at 11:00 Lactulose (Enulose) 20 gm BID PO Last administered on 02/01/17 10:14; Admin Dose 20 GM; Start 01/20/17 at 21:00 Morphine Sulfate (morphine) 1 mg Q4H PRN IM PAIN; Start 01/23/17 at 10:00 Folic Acid (Folic Acid) 1 mg DAILY PO Last administered on 02/01/17 10:15; Admin Dose 1 MG; Start 01/26/17 at 09:00 Thiamine HCl (Vitamin B1) 100 mg DAILY PO Last administered on 02/01/17 10:14 ; Admin Dose 100 MG; Start 01/26/17 at 09:00 Multivit/Ca Carb/ B Cmplx/FA/Prenat 1 tab 1 tab DAILY PO Last administered on 02/01/17 10:15; Admin Dose 1 TAB; Start 01/26/17 at 09:00 Caspofungin/ Sodium Chloride (Cancidas/NS) 250 ml @ 250 mls/hr Q24H IVPB Last administered on 01/31/17 13:22; Admin Dose 250 MLS/HR; Start 01/27/17 at 13: 30 Lorazepam (Ativan) 0.5 mg Q6H PRN IV AGITATION/ANXIETY Last administered on 20:49; Admin Dose 0.5 MG; Start 01/28/17 at 14:00 Famotidine (Pepcid) 20 mg Q12 PO Last administered on 02/01/17 10:15; Admin Dose 20 MG; Start 01/28/17 at 21:00 Morphine Sulfate 1 mg 1 mg Q4 PRN IV pain Last administered on 01/30/17 03:02 ; Admin Dose 1 MG; Start 01/29/17 at 17:00 Doxycycline Hyclate 100 mg/ Dextrose 250 ml @ 250 mls/hr Q12 IVPB Last administered on 02/01/17 10:14; Admin Dose 250 MLS/HR; Start 01/31/17 at 21: 00 Potassium Chloride 250 ml @ 62.5 mls/hr Q4H IVPB Last administered on 10:15; Admin Dose 62.5 MLS/HR; Start 02/01/17 at 09:00; Stop 02/01/17 at 16:59 Meropenem/Sodium Chloride (Merrem 1 Gm/50 ml (Pmx)) 50 ml @ 100 mls/hr Q12 IVPB ; Start 02/01/17 at 21:00 Phytonadione (Vitamin K) 5 mg ONCE ONCE SC ; Start 02/01/17 at 17:00; Stop at 17:01; Status UNV Assessment/Plan Chief Complaint/Hosp Course SUBJECTIVE: No events overnight per report. Awake, looks better. No n/ vomiting, no diarrhea. INDWELLINGS: The patient has a left upper extremity PICC line and rectal tube. Abx: Merrem, Doxycycline, Cancidas PHYSICAL EXAMINATION: GENERAL: Chronically ill-appearing, middle-aged man who is in no distress. HEENT: Head atraumatic, normocephalic. Sclerae anicteric. Buccal mucosa dry. NECK: Supple, trachea midline. CHEST: Rise symmetrical. Breath sounds diminished to bases. HEART: S1, S2. ABDOMEN: Distended, soft. Bowel tones hypoactive. EXTREMITIES: With trace edema. ASSESSMENT: 1. Persistent leukocytosis secondary to SBP, acute pancreatitis and also steroid induced. 2. Hepatic encephalopathy. 3. Alcoholic liver disease. 4. Recurrent ascites, status post paracentesis on admission, ==> repeated yesterday. 5. Acute renal failure, improving. 6. Hepatic encephalopathy. 7. Status post septic shock. PLAN: Remains stable, continue broad sp coverage for SBP, continue aspiration precautions, GI/pulmonary/surgical rec-s Problems: ROSALIA BARKER NP Feb 01, 2017 12:54
[2017-02-01] MEDS: CASPOFUNGIN 35 MG in SOD CHLORIDE 0.9% 250 ML IVPB SCH (13:33)
[2017-02-01] MEDS ORDERED: PHYTONADIONE 10 MG/ML INJ SC ONE (17:00)
--- NOTE | 2017-02-01 18:04 | CONS ---
Date/Time of Note Date/Time of Note DATE: 02/01/17 TIME: 18:03 Assessment/Plan Assessment/Plan Additional Assessment/Plan IMPRESSION: 1. Delirium tremens patient is still shaky unable to stand on his feet and continues to have slurred speech 2. Hepatic encephalopathy. Better patient is now communicating with slurred speech, still confused 3. Alcoholic liver disease. Patient is on prednisolone 4. Pancreatitis. Amylase has come down . Lipase is down 5. Leukocytosis. Persistent most probably related to alcoholic hepatitis and steroid 6. Renal insufficiency. Though the urine output is good. Renal function has improved a lot with good urine output. Creatinine is coming down. 7. Pedal edema resolved 8. Thrombocytopenia better 9. Ileus, small bowel follow-through was negative 10. Patient's gastroparesis might be related to uremia better 11. Hypernatremia 12. Spontaneous bacterial peritonitis. Acetic fluid was cloudy, WBC polymorphs where greater than 250 13. Abdominal pain rule out spontaneous bacterial peritonitis Plan 1. Continue prednisolone 2. Your liquid diet, advance to solid diet, aspiration precaution 3. Patient is confused at times but more oriented than before 4. Reduce IV fluid since patient is third spacing, may need albumin. 5. Octreotide discontinued 6. We will monitor WBC, INR, total bilirubin, and creatinine on a regular basis 7. I had [id number] discussion with the mother and the family members and also with the vessel builder and radio program director. 8. And is on pentoxifylline 400 mg once a day 10. Please avoid narcotics and also Ativan patient confusional state is secondary to hepatic encephalopath 12. Physical therapy and discontinue Ativan, patient is unable to stand on his own for a long time. He needs physical therapist support and also a walker to hold on 14. Discontinue Reglan 15. Antibiotics as per ID 16. Paracentesis today after correcting the coagulopathy if despite that continues to have pain then will get CAT scan of the abdomen to look at the pancreas. 17. CT scan negative for any acute pathology Trental has been discontinued. Consultation Date/Type/Reason Admit Date/Time Jan 02, 2017 at 19:30 Type of Consultation: id Referring Provider: BRAEDEN LUNSFORD MD 24 HR Interval Summary Constitutional: improved Exam/Review of Systems Vital Signs Vitals Vital Signs Date Time Temp Pulse Resp B/P Pulse Ox O2 Delivery O2 Flow Rate FiO2 02/01/17 07:22 98.0 65 18 117/67 96 01/29/17 20:21 Room Air Intake and Output 01/31/17 01/31/17 02/01/17 15:00 23:00 07:00 Intake Total 300 ml 1630 ml 300 ml Output Total 850 ml 550 ml Balance 300 ml 780 ml -250 ml Exam Constitutional: alert, oriented, well developed Psych: nl mood/affect, no complaints Head: atraumatic, normocephalic Eyes: EOMI, PERRL, nl conjunctiva, nl lids, nl sclera ENMT: nl external ears & nose, nl lips & teeth, nl nasal mucosa & septum Neck: non-tender, supple Respiratory: clear to auscultation, normal air movement Cardiovascular: nl pulses, regular rate and rhythm Gastrointestinal: nl liver, spleen, non-tender, soft Musculoskeletal: nl extremities to inspection, nl gait and stance Extremities: normal pulses Neurological: PROMOTIONS MANAGER II-XII intact, nl mental status, nl speech, nl strength Skin: nl turgor, No rash or lesions Lymph: nl lymph nodes Results Result Diagram: 02/01/1724 02/01/17 0524 Results 24 hrs Laboratory Tests Test 02/01/17 05:24 02/01/17 10:31 White Blood Count 43.6 H Red Blood Count 2.26 L Hemoglobin 8.0 L Hematocrit 24.5 L Mean Corpuscular Volume 108.4 H Mean Corpuscular Hemoglobin 35.4 H Mean Corpuscular Hemoglobin Concent 32.7 Red Cell Distribution Width 23.6 H Platelet Count 54 #L Mean Platelet Volume Neutrophils % 89.1 H Lymphocytes % 3.2 L Monocytes % 4.6 Eosinophils % 0.0 Basophils % 0.1 Nucleated Red Blood Cells % 0.4 H Neutrophils # 38.9 H Lymphocytes # 1.4 Monocytes # 2.0 H Eosinophils # 0.0 Basophils # 0.1 Nucleated Red Blood Cells # 0.2 H Sodium Level 143 Potassium Level 2.9 *L Chloride Level 113 H Carbon Dioxide Level 18 L Anion Gap 15 Blood Urea Nitrogen 59 H Creatinine 1.68 H Glucose Level 263 #H Calcium Level 8.1 L Total Bilirubin 26.5 H Direct Bilirubin 24.30 *H Indirect Bilirubin 2.2 H Aspartate Amino Transf (AST/SGOT) 139 H Alanine Aminotransferase (ALT/SGPT) 68 Alkaline Phosphatase 487 H Total Protein 5.4 L Albumin 2.1 L Globulin 3.30 H Albumin/Globulin Ratio 0.63 Prothrombin Time 32.5 H Prothrombin Time Ratio 2.5 INR International Normalized Ratio 3.11 Medications Medications Current Medications Ondansetron HCl (Zofran Inj) 4 mg Q6H PRN IV NAUSEA AND/OR VOMITING Last administered on 01/03/17 14:52; Admin Dose 4 MG; Start 01/02/17 at 23:00 Rifaximin (Xifaxan) 550 mg BID PO Last administered on 02/01/17 10:14; Admin Dose 550 MG; Start 01/04/17 at 11:00 IV Flush (NS 10 ml) 10 ml PRN PRN IV IV PROTOCOL; Start 01/05/17 at 18:30 Prednisolone (Prelone (Ped)) 40 mg DAILY PO Last administered on 02/01/17 10: 15; Admin Dose 40 MG; Start 01/12/17 at 09:00 Nystatin (Nystatin Susp) 5 ml QID PO Last administered on 02/01/17 16:57; Admin Dose 5 ML; Start 01/13/17 at 17:00 Glucose (Glutose) 15 gm Q15M PRN PO DECREASED GLUCOSE; Start 01/15/17 at 18:30 Glucose (Glutose) 22.5 gm Q15M PRN PO DECREASED GLUCOSE; Start 01/15/17 at 18: 30 Dextrose (D50w Syringe) 25 ml Q15M PRN IV DECREASED GLUCOSE; Start 01/15/17 at 18:30 Dextrose (D50w Syringe) 50 ml Q15M PRN IV DECREASED GLUCOSE; Start 01/15/17 at 18:30 Glucagon (Glucagen) 1 mg Q15M PRN IM DECREASED GLUCOSE; Start 01/15/17 at 18:30 Glucose (Glutose) 15 gm Q15M PRN BUCCAL DECREASED GLUCOSE; Start 01/15/17 at 18 :30 Diazepam (Valium) 10 mg BID PRN PO ANXIETY Last administered on 01/31/17 00: 14; Admin Dose 10 MG; Start 01/20/17 at 11:00 Lactulose (Enulose) 20 gm BID PO Last administered on 02/01/17 10:14; Admin Dose 20 GM; Start 01/20/17 at 21:00 Morphine Sulfate (morphine) 1 mg Q4H PRN IM PAIN; Start 01/23/17 at 10:00 Folic Acid (Folic Acid) 1 mg DAILY PO Last administered on 02/01/17 10:15; Admin Dose 1 MG; Start 01/26/17 at 09:00 Thiamine HCl (Vitamin B1) 100 mg DAILY PO Last administered on 02/01/17 10:14 ; Admin Dose 100 MG; Start 01/26/17 at 09:00 Multivit/Ca Carb/ B Cmplx/FA/Prenat 1 tab 1 tab DAILY PO Last administered on 02/01/17 10:15; Admin Dose 1 TAB; Start 01/26/17 at 09:00 Caspofungin/ Sodium Chloride (Cancidas/NS) 250 ml @ 250 mls/hr Q24H IVPB Last administered on 02/01/17 13:33; Admin Dose 250 MLS/HR; Start 01/27/17 at 13: 30 Lorazepam (Ativan) 0.5 mg Q6H PRN IV AGITATION/ANXIETY Last administered on 20:49; Admin Dose 0.5 MG; Start 01/28/17 at 14:00 Famotidine (Pepcid) 20 mg Q12 PO Last administered on 02/01/17 10:15; Admin Dose 20 MG; Start 01/28/17 at 21:00 Morphine Sulfate 1 mg 1 mg Q4 PRN IV pain Last administered on 01/30/17 03:02 ; Admin Dose 1 MG; Start 01/29/17 at 17:00 Doxycycline Hyclate 100 mg/ Dextrose 250 ml @ 250 mls/hr Q12 IVPB Last administered on 02/01/17 10:14; Admin Dose 250 MLS/HR; Start 01/31/17 at 21: 00 Meropenem/Sodium Chloride (Merrem 1 Gm/50 ml (Pmx)) 50 ml @ 100 mls/hr Q12 IVPB ; Start 02/01/17 at 21:00 LAURA CORDERO MD Feb 01, 2017 18:04
[2017-02-01 18:25] VITALS: BP 126/83; PULSE 78; RESP 18
[2017-02-01 19:28] VITALS: BP 122/72; RESP 18
[2017-02-01] MEDS: MEROPENEM 1 GM/50ML(PMX) 50 ML IVPB SCH (21:00)
--- NOTE | 2017-02-01 21:03 | PN ---
Date/Time of Note Date/Time of Note DATE: 02/01/17 TIME: 21:03 Assessment/Plan Lines/Catheters IV Catheter Type (from [facility]): PICC Line [place] in Place (from [facility]): Yes (condom catheter) Assessment/Plan Chief Complaint/Hosp Course 1. Paralytic ileus 2nd acute processes. SBFT negative. Improved; +bowel function -Monitor 2. Acute on chronic alcoholic pancreatitis with peripancreatic fluid: CT: worsened pancreatitis -antimicrobials -Supportive measures -Judicious fluid management -Trend labs -Encourage cessation 3. Acute GI bleed from gastritis and esophageal varices secondary to alcoholism. Stable -Transfuse as needed -Supportive measures: ppi -Correct coagulopathy and platelet dysfunction 4. Anemia secondary to above: h/h stable -As above 5. Leukocytosis, multifactorial with SIRS and steroid therapy, ? infectious ( pl. effusions, atelectasis vs. pna +/- pancreatitis-worsened on CT; ?sbp); persistent -Close monitoring -follow ascitic fluid studies 6. Alcoholic hepatitis with hepatosplenomegaly; elevated LFT's (improving) -Medical and GI optimization 7. Chronic alcohol abuse with Delirium Tremens; no tremors -Encourage cessation -Sedation/intubation 8. Subcapsular liver collection possible hematoma versus other -Monitor 9. Electrolyte imbalance -Correct with replacements and fluid management 10. Alcohol withdrawal with tachypnea, tachycardia and delirium tremens; improved -supportive 11. NICOLAS: output improving. improving -judicious fluids -avoid nephrotoxic meds 12. Atelectasis vs. pna -IS -increase activity-OOB as tolerated; PT Thank you, Problems: Exam/Review of Systems Vital Signs Vitals Vital Signs Date Time Temp Pulse Resp B/P Pulse Ox O2 Delivery O2 Flow Rate FiO2 02/01/17 19:28 98.3 70 18 122/72 95 02/01/17 18:25 Room Air Intake and Output 01/31/17 01/31/17 02/01/17 15:00 23:00 07:00 Intake Total 300 ml 1630 ml 300 ml Output Total 850 ml 550 ml Balance 300 ml 780 ml -250 ml Results Result Diagram: 02/01/17 0524 02/01/17 0524 PETER TAMEZ MD Feb 01, 2017 21:03
[2017-02-01 23:57] LABS: INR 2.21; PROTIME 24.8 Sec (12.2-14.2); PT RATIO 1.9
[2017-02-02] MEDS: MEROPENEM 1 GM/50ML(PMX) 50 ML IVPB SCH ×3 (00:34→21:59)
[2017-02-02 02:00] VITALS: BP 125/68; RESP 17
[2017-02-02 02:45] VITALS: BP 126/69; PULSE 87; RESP 18
[2017-02-02 06:33] LABS: ABNORMAL IP MESSAGE 1; HEMATOCRIT 24.1 % (42.0-52.0); MEAN CORPUSCULAR HEMOGLOBIN 35.7 pg (29.0-33.0); MEAN CORPUSCULAR HGB CONC 33.2 g/dl (32.0-37.0); MEAN CORPUSCULAR VOLUME 107.6 fl (82.0-101.0); NUCLEATED RED BLOOD CELLS% 0.5 /100WBC (0.0-0.0); POSITIVE DIFF @See below; RED BLOOD COUNT 2.24 10^6/ul (4.70-6.10); RED CELL DISTRIBUTION WIDTH 23.1 % (11.5-14.5)
[2017-02-02 07:03] LABS: INR 2.06; PROTIME 23.4 Sec (12.2-14.2); PT RATIO 1.8
[2017-02-02 07:14] LABS: ALBUMIN 2.5 g/dl (3.3-4.9); ALBUMIN/GLOBULIN RATIO 0.64; CALCIUM 8.7 mg/dl (8.4-10.2); CREATININE 1.61 mg/dl (0.61-1.24); POTASSIUM 4.2 mmol/L (3.5-5.1); TOTAL PROTEIN 6.4 g/dl (6.1-8.1)
[2017-02-02 07:20] LABS: PLATELET COUNT 69 10^3/UL (140-415)
[2017-02-02 07:23] LABS: BILIRUBIN,INDIRECT 2.7 mg/dl (0-1.1); BILIRUBIN,TOTAL 29.5 mg/dl (0.2-1.3)
[2017-02-02 07:26] LABS: BILIRUBIN,DIRECT 26.8 mg/dl (0.00-0.20)
[2017-02-02 07:44] LABS: PHOSPHORUS 5.7 mg/dl (2.5-4.9)
[2017-02-02 07:50] VITALS: BP 120/70; RESP 18
--- NOTE | 2017-02-02 09:43 | CONS ---
Date/Time of Note Date/Time of Note DATE: 02/02/17 TIME: 09:41 Assessment/Plan Assessment/Plan Additional Assessment/Plan IMPRESSION: 1. Delirium tremens patient is still shaky unable to stand on his feet and continues to have slurred speech 2. Hepatic encephalopathy. Better patient is now communicating with slurred speech, still confused 3. Alcoholic liver disease. Patient is on prednisolone 4. Pancreatitis. Amylase has come down . Lipase is down 5. Leukocytosis. Persistent most probably related to alcoholic hepatitis and steroid, is slowly coming down 6. Renal insufficiency. Though the urine output is good. Renal function has improved a lot with good urine output. Creatinine is coming down. 7. Pedal edema resolved 8. Thrombocytopenia better 9. Ileus, small bowel follow-through was negative 10. Patient's gastroparesis might be related to uremia better 11. Hypernatremia 12. Spontaneous bacterial peritonitis. Acetic fluid was cloudy, WBC polymorphs where greater than 250 13. Abdominal pain rule out spontaneous bacterial peritonitis Plan 1. Continue prednisolone 2. Your liquid diet, advance to solid diet, aspiration precaution 3. Patient is confused at times but more oriented than before 4. Reduce IV fluid since patient is third spacing, may need albumin. 6. We will monitor WBC, INR, total bilirubin, and creatinine on a regular basis 7. I had [id number] discussion with the mother and the family members and also with the clip coater and fire tower keeper. 10. Please avoid narcotics and also Ativan patient confusional state is secondary to hepatic encephalopathy 12. Physical therapy and discontinue Ativan, patient is unable to stand on his own for a long time. He needs physical therapist support and also a walker to hold on 15. Antibiotics as per ID 16. Paracentesis today after correcting the coagulopathy if despite that continues to have pain then will get CAT scan of the abdomen to look at the pancreas. 17. CT scan negative for any acute pathology Trental has been discontinued. Consultation Date/Type/Reason Admit Date/Time Jan 02, 2017 at 19:30 Type of Consultation: id Referring Provider: BRAEDEN LUNSFORD MD 24 HR Interval Summary Free Text/Dictation Patient is sleepy Exam/Review of Systems Vital Signs Vitals Vital Signs Date Time Temp Pulse Resp B/P Pulse Ox O2 Delivery O2 Flow Rate FiO2 02/02/17 07:50 98.9 75 18 120/70 99 02/02/17 02:45 Room Air Intake and Output 02/01/17 02/01/17 02/02/17 15:00 23:00 07:00 Intake Total 500 ml 1180 ml 2450 ml Output Total 680 ml 650 ml Balance 500 ml 500 ml 1800 ml Exam Constitutional: alert, oriented, well developed Psych: nl mood/affect, no complaints Head: atraumatic, normocephalic Eyes: EOMI, PERRL, nl conjunctiva, nl lids, nl sclera ENMT: nl external ears & nose, nl lips & teeth, nl nasal mucosa & septum Neck: non-tender, supple Respiratory: clear to auscultation, normal air movement Cardiovascular: nl pulses, regular rate and rhythm Gastrointestinal: nl liver, spleen, non-tender, soft Musculoskeletal: nl extremities to inspection, nl gait and stance Extremities: normal pulses Neurological: SUPER[employer]OR [employer] REPAIR II-XII intact, nl mental status, nl speech, nl strength Skin: nl turgor, No rash or lesions Lymph: nl lymph nodes Results Result Diagram: 02/02/17 0551 02/02/17 0551 Results 24 hrs Laboratory Tests Test 02/01/17 10:31 02/01/17 23:21 02/02/17 05:51 Prothrombin Time 32.5 H 24.8 #H 23.4 H Prothrombin Time Ratio 2.5 1.9 1.8 INR International Normalized Ratio 3.11 2.21 2.06 White Blood Count 39.0 H Red Blood Count 2.24 L Hemoglobin 8.0 L Hematocrit 24.1 L Mean Corpuscular Volume 107.6 H Mean Corpuscular Hemoglobin 35.7 H Mean Corpuscular Hemoglobin Concent 33.2 Red Cell Distribution Width 23.1 H Platelet Count 69 #L Mean Platelet Volume Neutrophils % Lymphocytes % Monocytes % Eosinophils % Basophils % Nucleated Red Blood Cells % 0.5 H Neutrophils # Lymphocytes # Monocytes # Eosinophils # Basophils # Nucleated Red Blood Cells # Sodium Level 149 H Potassium Level 4.2 Chloride Level 119 H Carbon Dioxide Level 19 L Anion Gap 15 Blood Urea Nitrogen 64 H Creatinine 1.61 H Glucose Level 97 # Calcium Level 8.7 Phosphorus Level 5.7 H Magnesium Level 2.0 Total Bilirubin 29.5 H Direct Bilirubin 26.80 *H Indirect Bilirubin 2.7 H Aspartate Amino Transf (AST/SGOT) 129 H Alanine Aminotransferase (ALT/SGPT) 58 Alkaline Phosphatase 454 H Total Protein 6.4 # Albumin 2.5 L Globulin 3.90 H Albumin/Globulin Ratio 0.64 Medications Medications Current Medications Ondansetron HCl (Zofran Inj) 4 mg Q6H PRN IV NAUSEA AND/OR VOMITING Last administered on 01/03/17 14:52; Admin Dose 4 MG; Start 01/02/17 at 23:00 Rifaximin (Xifaxan) 550 mg BID PO Last administered on 02/01/17 22:33; Admin Dose 550 MG; Start 01/04/17 at 11:00 IV Flush (NS 10 ml) 10 ml PRN PRN IV IV PROTOCOL; Start 01/05/17 at 18:30 Prednisolone (Prelone (Ped)) 40 mg DAILY PO Last administered on 02/01/17 10: 15; Admin Dose 40 MG; Start 01/12/17 at 09:00 Nystatin (Nystatin Susp) 5 ml QID PO Last administered on 02/01/17 22:33; Admin Dose 5 ML; Start 01/13/17 at 17:00 Glucose (Glutose) 15 gm Q15M PRN PO DECREASED GLUCOSE; Start 01/15/17 at 18:30 Glucose (Glutose) 22.5 gm Q15M PRN PO DECREASED GLUCOSE; Start 01/15/17 at 18: 30 Dextrose (D50w Syringe) 25 ml Q15M PRN IV DECREASED GLUCOSE; Start 01/15/17 at 18:30 Dextrose (D50w Syringe) 50 ml Q15M PRN IV DECREASED GLUCOSE; Start 01/15/17 at 18:30 Glucagon (Glucagen) 1 mg Q15M PRN IM DECREASED GLUCOSE; Start 01/15/17 at 18:30 Glucose (Glutose) 15 gm Q15M PRN BUCCAL DECREASED GLUCOSE; Start 01/15/17 at 18 :30 Diazepam (Valium) 10 mg BID PRN PO ANXIETY Last administered on 01/31/17 00: 14; Admin Dose 10 MG; Start 01/20/17 at 11:00 Lactulose (Enulose) 20 gm BID PO Last administered on 02/01/17 22:33; Admin Dose 20 GM; Start 01/20/17 at 21:00 Morphine Sulfate (morphine) 1 mg Q4H PRN IM PAIN; Start 01/23/17 at 10:00 Folic Acid (Folic Acid) 1 mg DAILY PO Last administered on 02/01/17 10:15; Admin Dose 1 MG; Start 01/26/17 at 09:00 Thiamine HCl (Vitamin B1) 100 mg DAILY PO Last administered on 02/01/17 10:14 ; Admin Dose 100 MG; Start 01/26/17 at 09:00 Multivit/Ca Carb/ B Cmplx/FA/Prenat 1 tab 1 tab DAILY PO Last administered on 02/01/17 10:15; Admin Dose 1 TAB; Start 01/26/17 at 09:00 Caspofungin/ Sodium Chloride (Cancidas/NS) 250 ml @ 250 mls/hr Q24H IVPB Last administered on 02/01/17 13:33; Admin Dose 250 MLS/HR; Start 01/27/17 at 13: 30 Lorazepam (Ativan) 0.5 mg Q6H PRN IV AGITATION/ANXIETY Last administered on 20:49; Admin Dose 0.5 MG; Start 01/28/17 at 14:00 Famotidine (Pepcid) 20 mg Q12 PO Last administered on 02/01/17 22:33; Admin Dose 20 MG; Start 01/28/17 at 21:00 Morphine Sulfate 1 mg 1 mg Q4 PRN IV pain Last administered on 01/30/17 03:02 ; Admin Dose 1 MG; Start 01/29/17 at 17:00 Doxycycline Hyclate 100 mg/ Dextrose 250 ml @ 250 mls/hr Q12 IVPB Last administered on 02/01/17 22:34; Admin Dose 250 MLS/HR; Start 01/31/17 at 21: 00 Meropenem/Sodium Chloride (Merrem 1 Gm/50 ml (Pmx)) 50 ml @ 100 mls/hr Q12 IVPB Last administered on 02/02/17 00:34; Admin Dose 100 MLS/HR; Start 02/01 at 21:00 LAURA CORDERO MD Feb 02, 2017 09:43
--- NOTE | 2017-02-02 09:51 | PN ---
Date/Time of Note Date/Time of Note DATE: 02/02/17 TIME: 09:51 Assessment/Plan VTE Prophylaxis VTE Prophylaxis Intervention: contraindicated Lines/Catheters IV Catheter Type (from Nrs): PICC Line Central line still needed: Yes Urinary Cath still in place: No Reason Cath still needed: urinary retention Assessment/Plan Chief Complaint/Hosp Course 36 y/o with # NICOLAS likely Oliguric ATN vs HRS # Acute on chronic liver failure with alcholic hepatitis likely Etoh abuse with elevated INR, Hyperbilirubenemia, low platelets, elevated bilirubin # Hepatic encephalopathy # ETOH withdrawal on Ativan/librium tapered off # ETOH pancreatitis with Lipase 7690> trending down to 1999> trended down siginificantly # Non Gap Acidosis 2 to renal failure/diarrhoea # Leukocytosis # Hypoxic Respiratory failure s/p Intubation now extubated on 01/15 # Thrombocytopenia # Anemia likely hemodilutional : no evidence of bleeding s/p EGD with gastritis and gastroparesis on PPI and Reglan # s/P EGD with gastritis and gastroparesis on Protonix and Reglan # Ileus s/p Small bowel follow thru which is negative, f/u Surgery # Ascites s/p paracentesis with +SBP # Hypernatremia resolved after iv switched in D5W # Hypokalemia Plan - CT head negative - Aspiration precautions - paracentesis today once INR Corrected s/p Vit K - iv abx per I.D on doxycycline, cancidas and Meropenam - c/w prednisolone per GI - PT - Pt still requires Hospital care, very weak, debilitated, on 3 abx, bilirubin still 24,actively followed by consultants Problems: Subjective 24 Hr Interval Summary Free Text/Dictation No new events Paracentesis today Exam/Review of Systems Vital Signs Vitals Vital Signs Date Time Temp Pulse Resp B/P Pulse Ox O2 Delivery O2 Flow Rate FiO2 02/02/17 07:50 98.9 75 18 120/70 99 02/02/17 02:45 Room Air Intake and Output 02/01/17 02/01/17 02/02/17 15:00 23:00 07:00 Intake Total 500 ml 1180 ml 2450 ml Output Total 680 ml 650 ml Balance 500 ml 500 ml 1800 ml Exam GNERAL: Well-developed, ill-appearing,jaundice,male who is in no distress.[place], alert HEENT: Head atraumatic, normocephalic. Sclerae anicteric. Buccal mucosa dry. NECK: Supple. CHEST: Rise symmetrical. Breath sounds diminished to bases. HEART: S1, S2. ABDOMEN: Distended, soft. Bowel tones present.ascites+ EXTREMITIES: With trace edema. [place] in place and Rectal tube in place Results Result Diagram: 02/02/17 0551 02/02/17 0551 Results 24 hrs Laboratory Tests Test 02/01/17 10:31 02/01/17 23:21 02/02/17 05:51 Prothrombin Time 32.5 H 24.8 #H 23.4 H Prothrombin Time Ratio 2.5 1.9 1.8 INR International Normalized Ratio 3.11 2.21 2.06 White Blood Count 39.0 H Red Blood Count 2.24 L Hemoglobin 8.0 L Hematocrit 24.1 L Mean Corpuscular Volume 107.6 H Mean Corpuscular Hemoglobin 35.7 H Mean Corpuscular Hemoglobin Concent 33.2 Red Cell Distribution Width 23.1 H Platelet Count 69 #L Mean Platelet Volume Neutrophils % Lymphocytes % Monocytes % Eosinophils % Basophils % Nucleated Red Blood Cells % 0.5 H Neutrophils # Lymphocytes # Monocytes # Eosinophils # Basophils # Nucleated Red Blood Cells # Sodium Level 149 H Potassium Level 4.2 Chloride Level 119 H Carbon Dioxide Level 19 L Anion Gap 15 Blood Urea Nitrogen 64 H Creatinine 1.61 H Glucose Level 97 # Calcium Level 8.7 Phosphorus Level 5.7 H Magnesium Level 2.0 Total Bilirubin 29.5 H Direct Bilirubin 26.80 *H Indirect Bilirubin 2.7 H Aspartate Amino Transf (AST/SGOT) 129 H Alanine Aminotransferase (ALT/SGPT) 58 Alkaline Phosphatase 454 H Total Protein 6.4 # Albumin 2.5 L Globulin 3.90 H Albumin/Globulin Ratio 0.64 Medications Medications Current Medications Ondansetron HCl (Zofran Inj) 4 mg Q6H PRN IV NAUSEA AND/OR VOMITING Last administered on 01/03/17 14:52; Admin Dose 4 MG; Start 01/02/17 at 23:00 Rifaximin (Xifaxan) 550 mg BID PO Last administered on 02/01/17 22:33; Admin Dose 550 MG; Start 01/04/17 at 11:00 IV Flush (NS 10 ml) 10 ml PRN PRN IV IV PROTOCOL; Start 01/05/17 at 18:30 Prednisolone (Prelone (Ped)) 40 mg DAILY PO Last administered on 02/01/17 10: 15; Admin Dose 40 MG; Start 01/12/17 at 09:00 Nystatin (Nystatin Susp) 5 ml QID PO Last administered on 02/01/17 22:33; Admin Dose 5 ML; Start 01/13/17 at 17:00 Glucose (Glutose) 15 gm Q15M PRN PO DECREASED GLUCOSE; Start 01/15/17 at 18:30 Glucose (Glutose) 22.5 gm Q15M PRN PO DECREASED GLUCOSE; Start 01/15/17 at 18: 30 Dextrose (D50w Syringe) 25 ml Q15M PRN IV DECREASED GLUCOSE; Start 01/15/17 at 18:30 Dextrose (D50w Syringe) 50 ml Q15M PRN IV DECREASED GLUCOSE; Start 01/15/17 at 18:30 Glucagon (Glucagen) 1 mg Q15M PRN IM DECREASED GLUCOSE; Start 01/15/17 at 18:30 Glucose (Glutose) 15 gm Q15M PRN BUCCAL DECREASED GLUCOSE; Start 01/15/17 at 18 :30 Diazepam (Valium) 10 mg BID PRN PO ANXIETY Last administered on 01/31/17 00: 14; Admin Dose 10 MG; Start 01/20/17 at 11:00 Lactulose (Enulose) 20 gm BID PO Last administered on 02/01/17 22:33; Admin Dose 20 GM; Start 01/20/17 at 21:00 Morphine Sulfate (morphine) 1 mg Q4H PRN IM PAIN; Start 01/23/17 at 10:00 Folic Acid (Folic Acid) 1 mg DAILY PO Last administered on 02/01/17 10:15; Admin Dose 1 MG; Start 01/26/17 at 09:00 Thiamine HCl (Vitamin B1) 100 mg DAILY PO Last administered on 02/01/17 10:14 ; Admin Dose 100 MG; Start 01/26/17 at 09:00 Multivit/Ca Carb/ B Cmplx/FA/Prenat 1 tab 1 tab DAILY PO Last administered on 02/01/17 10:15; Admin Dose 1 TAB; Start 01/26/17 at 09:00 Caspofungin/ Sodium Chloride (Cancidas/NS) 250 ml @ 250 mls/hr Q24H IVPB Last administered on 02/01/17 13:33; Admin Dose 250 MLS/HR; Start 01/27/17 at 13: 30 Lorazepam (Ativan) 0.5 mg Q6H PRN IV AGITATION/ANXIETY Last administered on 20:49; Admin Dose 0.5 MG; Start 01/28/17 at 14:00 Famotidine (Pepcid) 20 mg Q12 PO Last administered on 02/01/17 22:33; Admin Dose 20 MG; Start 01/28/17 at 21:00 Morphine Sulfate 1 mg 1 mg Q4 PRN IV pain Last administered on 01/30/17 03:02 ; Admin Dose 1 MG; Start 01/29/17 at 17:00 Doxycycline Hyclate 100 mg/ Dextrose 250 ml @ 250 mls/hr Q12 IVPB Last administered on 02/01/17 22:34; Admin Dose 250 MLS/HR; Start 01/31/17 at 21: 00 Meropenem/Sodium Chloride (Merrem 1 Gm/50 ml (Pmx)) 50 ml @ 100 mls/hr Q12 IVPB Last administered on 02/02/17 00:34; Admin Dose 100 MLS/HR; Start 02/01 at 21:00 BRAEDEN LUNSFORD MD Feb 02, 2017 09:51
[2017-02-02] MEDS: THIAMINE 100 MG TAB PO SCH (10:09)
[2017-02-02] MEDS: NYSTATIN SUSP 5 ML CUP PO SCH ×4 (10:09→21:59)
[2017-02-02] MEDS: FOLIC ACID 1 MG TAB PO SCH (10:09)
[2017-02-02] MEDS: RIFAXIMIN 550 MG TAB PO SCH ×2 (10:09→21:59)
[2017-02-02] MEDS: BALSAM PERU/CASTOR OIL 60 GM TUBE TOP SCH ×2 (10:09→22:00)
[2017-02-02] MEDS: LACTULOSE 30ML CUP PO SCH ×2 (10:09→21:58)
[2017-02-02] MEDS: FAMOTIDINE 20 MG TAB PO SCH ×2 (10:09→21:58)
[2017-02-02] MEDS: MULTIVIT/CA CARB/B CMPLX/FA TAB PO SCH (10:09)
[2017-02-02] MEDS: predniSOLONE (3 MG/ML PO SYG) PO SCH (10:18)
[2017-02-02] MEDS: DOXYCYCLINE 100 MG in DEXTROSE 5% 250 ML IVPB SCH ×2 (10:39→22:00)
[2017-02-02] MEDS ORDERED: LIDOCAINE 1% (MPF) 5 ML VIAL ONE (12:04)
[2017-02-02 12:12] LABS: ANISOCYTOSIS 2+ (0-0); MONOCYTES % (M) 4 % (0-11); PLATELET ESTIMATE DECREASED; POIKILOCYTOSIS 3+ (0-0); POLYCHROMASIA 3+ (0-0)
--- NOTE | 2017-02-02 13:01 | CONS ---
Date/Time of Note Date/Time of Note DATE: 02/02/17 TIME: 13:00 Consult Date/Type/Reason Admit Date/Time Jan 02, 2017 at 19:30 Initial Consult Date 01/07/17 Type of Consultation: Pulmonary Ordering Provider: BRAEDEN LUNSFORD MD Subjective Patient comfortable this morning. No new events. Objective Vital Signs Date Time Temp Pulse Resp B/P Pulse Ox O2 Delivery O2 Flow Rate FiO2 02/02/17 07:50 98.9 75 18 120/70 99 02/02/17 02:45 Room Air Intake and Output 02/01/17 02/01/17 02/02/17 14:59 22:59 06:59 Intake Total 500 ml 1180 ml 2450 ml Output Total 680 ml 650 ml Balance 500 ml 500 ml 1800 ml Exam GENERAL: VITAL SIGNS: per chart NECK: Supple. No JVD or lymphadenopathy. CARDIAC EXAM: S1, S2. No added sounds or murmurs. CHEST: clear bilaterally, No added sounds, rales or wheezes ABDOMEN: Soft, nontender. No guarding or rebound. EXTREMITIES: No cyanosis, clubbing or edema. NEUROLOGIC: Generalized weakness. No focal deficits. Results/Medications Result Diagram: 02/02/17 0551 02/02/17 0551 Results 24 hrs Laboratory Tests Test 02/01/17 23:21 02/02/17 05:51 Prothrombin Time 24.8 #H 23.4 H Prothrombin Time Ratio 1.9 1.8 INR International Normalized Ratio 2.21 2.06 White Blood Count 39.0 H Red Blood Count 2.24 L Hemoglobin 8.0 L Hematocrit 24.1 L Mean Corpuscular Volume 107.6 H Mean Corpuscular Hemoglobin 35.7 H Mean Corpuscular Hemoglobin Concent 33.2 Red Cell Distribution Width 23.1 H Platelet Count 69 #L Mean Platelet Volume Neutrophils % Segmented Neutrophils % (Manual) 88 H Band Neutrophils % (Manual) 6 H Lymphocytes % Lymphocytes % (Manual) 2 L Monocytes % Monocytes % (Manual) 4 Eosinophils % Basophils % Nucleated Red Blood Cells % 0.5 H Neutrophils # Neutrophils # (Manual) 35.2 H Band Neutrophils # 2.3 H Absolute Lymphocytes (Manual) 0.7 L Lymphocytes # Monocytes # Absolute Monocytes (Manual) 1.5 H Eosinophils # Basophils # Nucleated Red Blood Cells # Platelet Estimate DECREASED Polychromasia 3+ Poikilocytosis 3+ Anisocytosis 2+ Macrocytosis 2+ Sodium Level 149 H Potassium Level 4.2 Chloride Level 119 H Carbon Dioxide Level 19 L Anion Gap 15 Blood Urea Nitrogen 64 H Creatinine 1.61 H Glucose Level 97 # Calcium Level 8.7 Phosphorus Level 5.7 H Magnesium Level 2.0 Total Bilirubin 29.5 H Direct Bilirubin 26.80 *H Indirect Bilirubin 2.7 H Aspartate Amino Transf (AST/SGOT) 129 H Alanine Aminotransferase (ALT/SGPT) 58 Alkaline Phosphatase 454 H Total Protein 6.4 # Albumin 2.5 L Globulin 3.90 H Albumin/Globulin Ratio 0.64 Medications Current Medications Ondansetron HCl (Zofran Inj) 4 mg Q6H PRN IV NAUSEA AND/OR VOMITING Last administered on 01/03/17 14:52; Admin Dose 4 MG; Start 01/02/17 at 23:00 Rifaximin (Xifaxan) 550 mg BID PO Last administered on 02/02/17 10:09; Admin Dose 550 MG; Start 01/04/17 at 11:00 IV Flush (NS 10 ml) 10 ml PRN PRN IV IV PROTOCOL; Start 01/05/17 at 18:30 Prednisolone (Prelone (Ped)) 40 mg DAILY PO Last administered on 02/02/17 10: 18; Admin Dose 40 MG; Start 01/12/17 at 09:00 Nystatin (Nystatin Susp) 5 ml QID PO Last administered on 02/02/17 10:09; Admin Dose 5 ML; Start 01/13/17 at 17:00 Glucose (Glutose) 15 gm Q15M PRN PO DECREASED GLUCOSE; Start 01/15/17 at 18:30 Glucose (Glutose) 22.5 gm Q15M PRN PO DECREASED GLUCOSE; Start 01/15/17 at 18: 30 Dextrose (D50w Syringe) 25 ml Q15M PRN IV DECREASED GLUCOSE; Start 01/15/17 at 18:30 Dextrose (D50w Syringe) 50 ml Q15M PRN IV DECREASED GLUCOSE; Start 01/15/17 at 18:30 Glucagon (Glucagen) 1 mg Q15M PRN IM DECREASED GLUCOSE; Start 01/15/17 at 18:30 Glucose (Glutose) 15 gm Q15M PRN BUCCAL DECREASED GLUCOSE; Start 01/15/17 at 18 :30 Diazepam (Valium) 10 mg BID PRN PO ANXIETY Last administered on 01/31/17 00: 14; Admin Dose 10 MG; Start 01/20/17 at 11:00 Lactulose (Enulose) 20 gm BID PO Last administered on 02/02/17 10:09; Admin Dose 20 GM; Start 01/20/17 at 21:00 Morphine Sulfate (morphine) 1 mg Q4H PRN IM PAIN; Start 01/23/17 at 10:00 Folic Acid (Folic Acid) 1 mg DAILY PO Last administered on 02/02/17 10:09; Admin Dose 1 MG; Start 01/26/17 at 09:00 Thiamine HCl (Vitamin B1) 100 mg DAILY PO Last administered on 02/02/17 10:09 ; Admin Dose 100 MG; Start 01/26/17 at 09:00 Multivit/Ca Carb/ B Cmplx/FA/Prenat 1 tab 1 tab DAILY PO Last administered on 02/02/17 10:09; Admin Dose 1 TAB; Start 01/26/17 at 09:00 Caspofungin/ Sodium Chloride (Cancidas/NS) 250 ml @ 250 mls/hr Q24H IVPB Last administered on 02/01/17 13:33; Admin Dose 250 MLS/HR; Start 01/27/17 at 13: 30 Lorazepam (Ativan) 0.5 mg Q6H PRN IV AGITATION/ANXIETY Last administered on 20:49; Admin Dose 0.5 MG; Start 01/28/17 at 14:00 Famotidine (Pepcid) 20 mg Q12 PO Last administered on 02/02/17 10:09; Admin Dose 20 MG; Start 01/28/17 at 21:00 Morphine Sulfate 1 mg 1 mg Q4 PRN IV pain Last administered on 01/30/17 03:02 ; Admin Dose 1 MG; Start 01/29/17 at 17:00 Doxycycline Hyclate 100 mg/ Dextrose 250 ml @ 250 mls/hr Q12 IVPB Last administered on 02/02/17 10:39; Admin Dose 250 MLS/HR; Start 01/31/17 at 21: 00 Meropenem/Sodium Chloride (Merrem 1 Gm/50 ml (Pmx)) 50 ml @ 100 mls/hr Q12 IVPB Last administered on 02/02/17 10:09; Admin Dose 100 MLS/HR; Start 02/01 at 21:00 Assessment/Plan Chief Complaint/Hosp Course Assessment 1. Patient admitted with acute hepatic enteropathy due to alcoholic cirrhosis status post extubation several days ago. 2. Waxing and waning mental status due to underlying hepatic encephalopathy. 3. Anemia. Hematocrit is stable. Status post EGD. 4. Persistent hyperbilirubinemia. 5. Acute pancreatitis. 6. Probable subacute bacterial peritonitis 7. Thrombocytopenia. 8. Persistent severe leukocytosis. Plan 1. Continue antibiotics. 2. Continue aspiration precautions 3. Continue GI recommendations. Problems: UMA BELLE MD, [facility] Feb 02, 2017 13:01
--- NOTE | 2017-02-02 13:17 | RADRPT ---
PROCEDURE: Ultrasound-guided paracentesis. CLINICAL INDICATION: Ascites . Therapeutic TECHNIQUE: The the patient's mother was informed of the benefits and risks of the procedure and si gned consent was obtained. Risks include bleeding, infection, visceral organ or bowel injury. The p atient's INR was brought down to 2.06 following 3 units of FFP over the last the 24 hours.. Addition al unit of FFP following paracentesis was advised to patient's nurse. The abdomen was sterilely pre pped and draped. Local anesthesia with 1% lidocaine was administered. Initial ultrasound scanning of the abdomen is performed to locate a pocket of ascites suitable for paracentesis. Under ultrasou nd guidance, a 19-gauge [employer] multi side-hole centesis needle and sheath was advanced into the pocket of ascites. Paracentesis performed with vacuum. The patient tolerated procedure well and there no complications. Patient left department in stable condition. COMPARISON: None FINDINGS: Initial scanning shows ascites in the bilateral lower quadrants. IMPRESSION: Ultrasound-guided paracentesis of 3.0 liters of clear brown ascites from the right abdomen. Fluid di scarded. RPTAT: KK .Rodrigo Vigil MD, Date Time Electronically viewed and signed by .Rodrigo Vigil MD, on 02/02/2017 13:17 .L/
[2017-02-02 13:18] VITALS: BP 124/74; RESP 20
[2017-02-02] MEDS: CASPOFUNGIN 35 MG in SOD CHLORIDE 0.9% 250 ML IVPB SCH (13:30)
[2017-02-02 16:44] VITALS: BP 126/62; RESP 20
--- NOTE | 2017-02-02 17:55 | PN ---
Date/Time of Note Date/Time of Note DATE: 02/02/17 TIME: 17:51 Assessment/Plan Lines/Catheters IV Catheter Type (from [facility]): PICC Line Minaya in Place (from [facility]): No Assessment/Plan Chief Complaint/Hosp Course 1. Paralytic ileus 2nd acute processes. SBFT negative. Improved; +bowel function -Monitor 2. Acute on chronic alcoholic pancreatitis with peripancreatic fluid: CT: worsened pancreatitis -antimicrobials -Supportive measures -Judicious fluid management -Trend labs -Encourage cessation 3. Acute GI bleed from gastritis and esophageal varices secondary to alcoholism. Stable -Transfuse as needed -Supportive measures: ppi -Correct coagulopathy and platelet dysfunction 4. Anemia secondary to above: h/h stable -As above 5. Leukocytosis, multifactorial with SIRS and steroid therapy, ? infectious( pl. effusions, atelectasis vs. pna +/- pancreatitis-worsened on CT; ?sbp); improving -Close monitoring -follow ascitic fluid studies 6. Alcoholic hepatitis with hepatosplenomegaly, ascites; elevated LFT's ( improving); s/p paracentesis -Medical and GI optimization 7. Chronic alcohol abuse with Delirium Tremens; no tremors -Encourage cessation -Sedation/intubation 8. Subcapsular liver collection possible hematoma versus other -Monitor 9. Electrolyte imbalance -Correct with replacements and fluid management 10. Alcohol withdrawal with tachypnea, tachycardia and delirium tremens; improved -supportive 11. NICOLAS: improving -judicious fluids -avoid nephrotoxic meds 12. Atelectasis vs. pna -IS -increase activity-OOB as tolerated; PT Thank you. Patient seen and examined in collaboration with Dr. Bob Tristan. Problems: Subjective 24 Hr Interval Summary S/p paracentesis today. Continues to be confused. No fevers, chills, sob, congested cough, n/v/d/dysuria, cp. +bowel function. Exam/Review of Systems Vital Signs Vitals Vital Signs Date Time Temp Pulse Resp B/P Pulse Ox O2 Delivery O2 Flow Rate FiO2 02/02/17 16:44 97.3 69 20 126/62 94 02/02/17 02:45 Room Air Intake and Output 02/01/17 02/01/17 02/02/17 15:00 23:00 07:00 Intake Total 500 ml 1180 ml 2450 ml Output Total 680 ml 650 ml Balance 500 ml 500 ml 1800 ml Exam Free Text/Dictation Constitutional: Confused Not oriented. more alert Psych: No nl mood/affect Head: atraumatic, normocephalic, No hematomas, No lacerations Eyes: EOMI, PERRL, icteric ENMT: nl external ears & nose, nl lips & teeth. Mucosa pink and dry. icteric Neck: non-tender, supple, No jvd Respiratory: No congested cough, No labored breathing Cardiovascular: No edema, No regular rate and rhythm Gastrointestinal: soft, min-tender, non distended. No rebound or guarding Musculoskeletal: nl extremities to inspection, No joint tenderness; BLE edema Extremities: normal pulses, No calf tenderness, No cyanosis Neurological: Responsive Skin: rash or lesions (Jaundice), No diaphoresis, No nl turgor : minaya with luis output (improved; increased amount) Lymph: nl lymph nodes, nontender Results Result Diagram: 02/02/17 0551 02/02/17 0551 ELIO GIBBONS NP Feb 02, 2017 17:55
[2017-02-02 19:26] VITALS: BP 133/75; RESP 20
--- NOTE | 2017-02-02 21:31 | CONS ---
Date/Time of Note Date/Time of Note DATE: 02/02/17 TIME: 21:30 Consult Date/Type/Reason Admit Date/Time Jan 02, 2017 at 19:30 Initial Consult Date 01/07/17 Type of Consultation: ID Ordering Provider: BRAEDEN LUNSFORD MD Objective Vital Signs Date Time Temp Pulse Resp B/P Pulse Ox O2 Delivery O2 Flow Rate FiO2 02/02/17 19:26 97.5 82 20 133/75 95 02/02/17 02:45 Room Air Intake and Output 02/01/17 02/01/17 02/02/17 15:00 23:00 07:00 Intake Total 500 ml 1180 ml 2450 ml Output Total 680 ml 650 ml Balance 500 ml 500 ml 1800 ml Results/Medications Result Diagram: 02/02/17 0551 02/02/17 0551 Results 24 hrs Laboratory Tests Test 02/01/17 23:21 02/02/17 05:51 Prothrombin Time 24.8 #H 23.4 H Prothrombin Time Ratio 1.9 1.8 INR International Normalized Ratio 2.21 2.06 White Blood Count 39.0 H Red Blood Count 2.24 L Hemoglobin 8.0 L Hematocrit 24.1 L Mean Corpuscular Volume 107.6 H Mean Corpuscular Hemoglobin 35.7 H Mean Corpuscular Hemoglobin Concent 33.2 Red Cell Distribution Width 23.1 H Platelet Count 69 #L Mean Platelet Volume Neutrophils % Segmented Neutrophils % (Manual) 88 H Band Neutrophils % (Manual) 6 H Lymphocytes % Lymphocytes % (Manual) 2 L Monocytes % Monocytes % (Manual) 4 Eosinophils % Basophils % Nucleated Red Blood Cells % 0.5 H Neutrophils # Neutrophils # (Manual) 35.2 H Band Neutrophils # 2.3 H Absolute Lymphocytes (Manual) 0.7 L Lymphocytes # Monocytes # Absolute Monocytes (Manual) 1.5 H Eosinophils # Basophils # Nucleated Red Blood Cells # Platelet Estimate DECREASED Polychromasia 3+ Poikilocytosis 3+ Anisocytosis 2+ Macrocytosis 2+ Sodium Level 149 H Potassium Level 4.2 Chloride Level 119 H Carbon Dioxide Level 19 L Anion Gap 15 Blood Urea Nitrogen 64 H Creatinine 1.61 H Glucose Level 97 # Calcium Level 8.7 Phosphorus Level 5.7 H Magnesium Level 2.0 Total Bilirubin 29.5 H Direct Bilirubin 26.80 *H Indirect Bilirubin 2.7 H Aspartate Amino Transf (AST/SGOT) 129 H Alanine Aminotransferase (ALT/SGPT) 58 Alkaline Phosphatase 454 H Total Protein 6.4 # Albumin 2.5 L Globulin 3.90 H Albumin/Globulin Ratio 0.64 Medications Current Medications Ondansetron HCl (Zofran Inj) 4 mg Q6H PRN IV NAUSEA AND/OR VOMITING Last administered on 01/03/17 14:52; Admin Dose 4 MG; Start 01/02/17 at 23:00 Rifaximin (Xifaxan) 550 mg BID PO Last administered on 02/02/17 10:09; Admin Dose 550 MG; Start 01/04/17 at 11:00 IV Flush (NS 10 ml) 10 ml PRN PRN IV IV PROTOCOL; Start 01/05/17 at 18:30 Prednisolone (Prelone (Ped)) 40 mg DAILY PO Last administered on 02/02/17 10: 18; Admin Dose 40 MG; Start 01/12/17 at 09:00 Nystatin (Nystatin Susp) 5 ml QID PO Last administered on 02/02/17 13:30; Admin Dose 5 ML; Start 01/13/17 at 17:00 Glucose (Glutose) 15 gm Q15M PRN PO DECREASED GLUCOSE; Start 01/15/17 at 18:30 Glucose (Glutose) 22.5 gm Q15M PRN PO DECREASED GLUCOSE; Start 01/15/17 at 18: 30 Dextrose (D50w Syringe) 25 ml Q15M PRN IV DECREASED GLUCOSE; Start 01/15/17 at 18:30 Dextrose (D50w Syringe) 50 ml Q15M PRN IV DECREASED GLUCOSE; Start 01/15/17 at 18:30 Glucagon (Glucagen) 1 mg Q15M PRN IM DECREASED GLUCOSE; Start 01/15/17 at 18:30 Glucose (Glutose) 15 gm Q15M PRN BUCCAL DECREASED GLUCOSE; Start 01/15/17 at 18 :30 Diazepam (Valium) 10 mg BID PRN PO ANXIETY Last administered on 01/31/17 00: 14; Admin Dose 10 MG; Start 01/20/17 at 11:00 Lactulose (Enulose) 20 gm BID PO Last administered on 02/02/17 10:09; Admin Dose 20 GM; Start 01/20/17 at 21:00 Morphine Sulfate (morphine) 1 mg Q4H PRN IM PAIN; Start 01/23/17 at 10:00 Folic Acid (Folic Acid) 1 mg DAILY PO Last administered on 02/02/17 10:09; Admin Dose 1 MG; Start 01/26/17 at 09:00 Thiamine HCl (Vitamin B1) 100 mg DAILY PO Last administered on 02/02/17 10:09 ; Admin Dose 100 MG; Start 01/26/17 at 09:00 Multivit/Ca Carb/ B Cmplx/FA/Prenat 1 tab 1 tab DAILY PO Last administered on 02/02/17 10:09; Admin Dose 1 TAB; Start 01/26/17 at 09:00 Caspofungin/ Sodium Chloride (Cancidas/NS) 250 ml @ 250 mls/hr Q24H IVPB Last administered on 02/02/17 13:30; Admin Dose 250 MLS/HR; Start 01/27/17 at 13: 30 Lorazepam (Ativan) 0.5 mg Q6H PRN IV AGITATION/ANXIETY Last administered on 20:49; Admin Dose 0.5 MG; Start 01/28/17 at 14:00 Famotidine (Pepcid) 20 mg Q12 PO Last administered on 02/02/17 10:09; Admin Dose 20 MG; Start 01/28/17 at 21:00 Morphine Sulfate 1 mg 1 mg Q4 PRN IV pain Last administered on 01/30/17 03:02 ; Admin Dose 1 MG; Start 01/29/17 at 17:00 Doxycycline Hyclate 100 mg/ Dextrose 250 ml @ 250 mls/hr Q12 IVPB Last administered on 02/02/17 10:39; Admin Dose 250 MLS/HR; Start 01/31/17 at 21: 00 Meropenem/Sodium Chloride (Merrem 1 Gm/50 ml (Pmx)) 50 ml @ 100 mls/hr Q12 IVPB Last administered on 02/02/17 10:09; Admin Dose 100 MLS/HR; Start 02/01 at 21:00 Assessment/Plan Chief Complaint/Hosp Course SUBJECTIVE: No events overnight per report. Awake, confused, sluggish, looks better. No n/ vomiting, mother at bedside INDWELLINGS: The patient has a left upper extremity PICC line and rectal tube. Abx: Merrem, Doxycycline, Cancidas PHYSICAL EXAMINATION: GENERAL: Chronically ill-appearing, middle-aged man who is in no distress. HEENT: Head atraumatic, normocephalic. Sclerae anicteric. Buccal mucosa dry. NECK: Supple, trachea midline. CHEST: Rise symmetrical. Breath sounds diminished to bases. HEART: S1, S2. ABDOMEN: Distended, soft. Bowel tones hypoactive. EXTREMITIES: With trace edema. ASSESSMENT: 1. Persistent leukocytosis secondary to SBP, acute pancreatitis and also steroid induced. 2. Hepatic encephalopathy. 3. Alcoholic liver disease. 4. Recurrent ascites, status post paracentesis on admission, ==> repeated yesterday. 5. Acute renal failure, improving. 6. Hepatic encephalopathy. 7. Status post septic shock. PLAN: Remains stable, continue broad sp coverage for SBP, continue aspiration precautions, GI/pulmonary/surgical rec-s DW mother at bedside Problems: ROSALIA BARKER NP Feb 02, 2017 21:31
[2017-02-03 02:00] VITALS: BP 123/68; RESP 20
[2017-02-03 05:58] LABS: ABNORMAL IP MESSAGE 1; HEMATOCRIT 25.8 % (42.0-52.0); HEMOGLOBIN 8.5 g/dl (14.0-18.0); MEAN CORPUSCULAR HGB CONC 32.9 g/dl (32.0-37.0); MEAN CORPUSCULAR VOLUME 109.3 fl (82.0-101.0); NUCLEATED RED BLOOD CELLS% 0.6 /100WBC (0.0-0.0); POSITIVE DIFF @See below; RED BLOOD COUNT 2.36 10^6/ul (4.70-6.10); RED CELL DISTRIBUTION WIDTH 22.9 % (11.5-14.5); WHITE BLOOD COUNT 42.5 10^3/ul (4.8-10.8)
[2017-02-03 06:13] LABS: PLATELET COUNT 48 10^3/UL (140-415)
[2017-02-03 06:44] LABS: ALBUMIN 2.3 g/dl (3.3-4.9); ALBUMIN/GLOBULIN RATIO 0.67; BILIRUBIN,INDIRECT 2.7 mg/dl (0-1.1); CALCIUM 8.4 mg/dl (8.4-10.2); CREATININE 1.62 mg/dl (0.61-1.24); POTASSIUM 3.6 mmol/L (3.5-5.1); TOTAL PROTEIN 5.7 g/dl (6.1-8.1)
[2017-02-03 06:50] LABS: BILIRUBIN,DIRECT 26.3 mg/dl (0.00-0.20)
[2017-02-03] MEDS ORDERED: DEXTROSE 5% 500 ML IV ONE (09:00)
[2017-02-03] MEDS: predniSOLONE (3 MG/ML PO SYG) PO SCH (09:34)
[2017-02-03] MEDS: FOLIC ACID 1 MG TAB PO SCH (09:35)
[2017-02-03] MEDS: FAMOTIDINE 20 MG TAB PO SCH ×2 (09:35→21:04)
[2017-02-03] MEDS: LACTULOSE 30ML CUP PO SCH ×2 (09:35→19:46)
[2017-02-03] MEDS: RIFAXIMIN 550 MG TAB PO SCH (09:35)
[2017-02-03] MEDS: MEROPENEM 1 GM/50ML(PMX) 50 ML IVPB SCH ×2 (09:35→21:00)
[2017-02-03] MEDS: NYSTATIN SUSP 5 ML CUP PO SCH ×4 (09:35→21:00)
[2017-02-03] MEDS: THIAMINE 100 MG TAB PO SCH (09:35)
[2017-02-03] MEDS: MULTIVIT/CA CARB/B CMPLX/FA TAB PO SCH (09:35)
[2017-02-03] MEDS: BALSAM PERU/CASTOR OIL 60 GM TUBE TOP SCH ×2 (09:36→21:00)
[2017-02-03 10:24] LABS: ACANTHOCYTES 1+ (0-0); ANISOCYTOSIS 3+ (0-0); BURR CELLS 2+ (0-0); MONOCYTES % (M) 4 % (0-11); PLATELET ESTIMATE DECREASED; POIKILOCYTOSIS 3+ (0-0); POLYCHROMASIA 3+ (0-0); PROMYELOCYTES #M 0.4 10^3/ul (0-0); PROMYELOCYTES % (M) 1 % (0-0); TARGET CELLS 1+ (0-0)
[2017-02-03] MEDS: DOXYCYCLINE 100 MG in DEXTROSE 5% 250 ML IVPB SCH ×2 (10:35→22:00)
--- NOTE | 2017-02-03 12:13 | CONS ---
Date/Time of Note Date/Time of Note DATE: 02/03/17 TIME: 12:11 Assessment/Plan Assessment/Plan Additional Assessment/Plan Assessment and recommendations; 1. Patient admitted with hepatic enthesopathy due to her severe alcoholic hepatitis leading to respiratory failure, patient now extubated several days ago with stable respiratory status. 2. Subacute bacterial peritonitis. Currently on appropriate antibiotic regimen. 3. Recurrent ascites, status post 3 L paracentesis yesterday. 4. Hepatorenal syndrome with stable serum creatinine. Patient has not required any hemodialysis. 5. Status post upper GI bleed with stable hematocrit. 6. Thrombocytopenia. 7. Persistent leukocytosis. 8. Persistent severe hyperbilirubinemia. 9. Encephalopathy with waxing and waning mental status. Continue current supportive care. I did have a detailed discussion patient's mother at bedside and answered all her questions. Consultation Date/Type/Reason Admit Date/Time Jan 02, 2017 at 19:30 Initial Consult Date 01/07/17 Type of Consultation: Pulmonary Referring Provider: BRAEDEN LUNSFORD MD 24 HR Interval Summary Free Text/Dictation Patient's mental condition has improved. Patient is awake and able to talk. Still has slurred speech. Has remained hemodynamically stable. General exam; young male, awake alert, currently in no distress. Exam/Review of Systems Vital Signs Vitals Vital Signs Date Time Temp Pulse Resp B/P Pulse Ox O2 Delivery O2 Flow Rate FiO2 02/03/17 02:00 97.5 20 123/68 95 02/02/17 19:26 82 02/02/17 02:45 Room Air Intake and Output 02/02/17 02/02/17 02/03/17 15:00 23:00 07:00 Intake Total 100 ml 1830 ml 700 ml Output Total 300 ml 900 ml Balance -200 ml 1830 ml -200 ml Exam HEENT exam; supple neck, patient remains deeply icteric. There is no oral bleeding seen. Patient is a fair dentition. Chest exam; clear to auscultation. S1-S2 audible, no murmurs. Regular rhythm. Abdomen exam; soft, protuberant. Positive fluid thrill. Bowel sounds are audible. Extremity exam; no peripheral edema. [employer]PERATOR exam; no focal motor deficit. Results Result Diagram: 02/03/17 0504 02/03/17 0503 Results 24 hrs Laboratory Tests Test 02/03/17 05:03 02/03/17 05:04 02/03/17 05:31 Sodium Level 151 H Potassium Level 3.6 Chloride Level 120 H Carbon Dioxide Level 18 L Anion Gap 17 H Blood Urea Nitrogen 66 H Creatinine 1.62 H Glucose Level 93 Calcium Level 8.4 Total Bilirubin 29.0 H Direct Bilirubin 26.30 *H Indirect Bilirubin 2.7 H Aspartate Amino Transf (AST/SGOT) 118 H Alanine Aminotransferase (ALT/SGPT) 63 Alkaline Phosphatase 522 H Total Protein 5.7 L Albumin 2.3 L Globulin 3.40 H Albumin/Globulin Ratio 0.67 White Blood Count 42.5 H Red Blood Count 2.36 L Hemoglobin 8.5 L Hematocrit 25.8 L Mean Corpuscular Volume 109.3 H Mean Corpuscular Hemoglobin 36.0 H Mean Corpuscular Hemoglobin Concent 32.9 Red Cell Distribution Width 22.9 H Platelet Count 48 #L Mean Platelet Volume Neutrophils % Segmented Neutrophils % (Manual) 88 H Band Neutrophils % (Manual) 4 Lymphocytes % (Manual) 3 L Monocytes % (Manual) 4 Eosinophils % Promyelocytes % (Manual) 1 H Nucleated Red Blood Cells % 0.6 H Neutrophils # Neutrophils # (Manual) 38.1 H Band Neutrophils # 1.7 H Absolute Lymphocytes (Manual) 1.2 Absolute Monocytes (Manual) 1.7 H Eosinophils # Promyelocytes # 0.4 H Platelet Estimate DECREASED Polychromasia 3+ Poikilocytosis 3+ Anisocytosis 3+ Macrocytosis 2+ Target Cells 1+ Acanthocytes 1+ Magnesium Level 1.9 Lab Scanned Report BLOOD TRANSFUSION Medications Medications Current Medications Ondansetron HCl (Zofran Inj) 4 mg Q6H PRN IV NAUSEA AND/OR VOMITING Last administered on 01/03/17 14:52; Admin Dose 4 MG; Start 01/02/17 at 23:00 Rifaximin (Xifaxan) 550 mg BID PO Last administered on 02/03/17 09:35; Admin Dose 550 MG; Start 01/04/17 at 11:00 IV Flush (NS 10 ml) 10 ml PRN PRN IV IV PROTOCOL; Start 01/05/17 at 18:30 Prednisolone (Prelone (Ped)) 40 mg DAILY PO Last administered on 02/03/17 09: 34; Admin Dose 40 MG; Start 01/12/17 at 09:00 Nystatin (Nystatin Susp) 5 ml QID PO Last administered on 02/03/17 09:35; Admin Dose 5 ML; Start 01/13/17 at 17:00 Glucose (Glutose) 15 gm Q15M PRN PO DECREASED GLUCOSE; Start 01/15/17 at 18:30 Glucose (Glutose) 22.5 gm Q15M PRN PO DECREASED GLUCOSE; Start 01/15/17 at 18: 30 Dextrose (D50w Syringe) 25 ml Q15M PRN IV DECREASED GLUCOSE; Start 01/15/17 at 18:30 Dextrose (D50w Syringe) 50 ml Q15M PRN IV DECREASED GLUCOSE; Start 01/15/17 at 18:30 Glucagon (Glucagen) 1 mg Q15M PRN IM DECREASED GLUCOSE; Start 01/15/17 at 18:30 Glucose (Glutose) 15 gm Q15M PRN BUCCAL DECREASED GLUCOSE; Start 01/15/17 at 18 :30 Diazepam (Valium) 10 mg BID PRN PO ANXIETY Last administered on 01/31/17 00: 14; Admin Dose 10 MG; Start 01/20/17 at 11:00 Lactulose (Enulose) 20 gm BID PO Last administered on 02/03/17 09:35; Admin Dose 20 GM; Start 01/20/17 at 21:00 Morphine Sulfate (morphine) 1 mg Q4H PRN IM PAIN; Start 01/23/17 at 10:00 Folic Acid (Folic Acid) 1 mg DAILY PO Last administered on 02/03/17 09:35; Admin Dose 1 MG; Start 01/26/17 at 09:00 Thiamine HCl (Vitamin B1) 100 mg DAILY PO Last administered on 02/03/17 09:35 ; Admin Dose 100 MG; Start 01/26/17 at 09:00 Multivit/Ca Carb/ B Cmplx/FA/Prenat 1 tab 1 tab DAILY PO Last administered on 02/03/17 09:35; Admin Dose 1 TAB; Start 01/26/17 at 09:00 Caspofungin/ Sodium Chloride (Cancidas/NS) 250 ml @ 250 mls/hr Q24H IVPB Last administered on 02/02/17 13:30; Admin Dose 250 MLS/HR; Start 01/27/17 at 13: 30 Lorazepam (Ativan) 0.5 mg Q6H PRN IV AGITATION/ANXIETY Last administered on 20:49; Admin Dose 0.5 MG; Start 01/28/17 at 14:00 Famotidine (Pepcid) 20 mg Q12 PO Last administered on 02/03/17 09:35; Admin Dose 20 MG; Start 01/28/17 at 21:00 Morphine Sulfate 1 mg 1 mg Q4 PRN IV pain Last administered on 01/30/17 03:02 ; Admin Dose 1 MG; Start 01/29/17 at 17:00 Doxycycline Hyclate 100 mg/ Dextrose 250 ml @ 250 mls/hr Q12 IVPB Last administered on 02/03/17 10:35; Admin Dose 250 MLS/HR; Start 01/31/17 at 21: 00 Meropenem/Sodium Chloride 50 ml @ 100 mls/hr Q12 IVPB Last administered on 09:35; Admin Dose 100 MLS/HR; Start 02/01/17 at 21:00 Dextrose (D5W) 500 ml @ 50 mls/hr Q10H ONCE IV Last administered on 09:34; Admin Dose 50 MLS/HR; Start 02/03/17 at 09:00; Stop 02/03/17 at 18 :59 NERI MCKEON Feb 03, 2017 12:13
--- NOTE | 2017-02-03 12:36 | CONS ---
Date/Time of Note Date/Time of Note DATE: 02/03/17 TIME: 12:35 Consult Date/Type/Reason Admit Date/Time Jan 02, 2017 at 19:30 Initial Consult Date 01/07/17 Type of Consultation: ID Ordering Provider: BRAEDEN LUNSFORD MD Objective Vital Signs Date Time Temp Pulse Resp B/P Pulse Ox O2 Delivery O2 Flow Rate FiO2 02/03/17 02:00 97.5 20 123/68 95 02/02/17 19:26 82 02/02/17 02:45 Room Air Intake and Output 02/02/17 02/02/17 02/03/17 15:00 23:00 07:00 Intake Total 100 ml 1830 ml 700 ml Output Total 300 ml 900 ml Balance -200 ml 1830 ml -200 ml Results/Medications Result Diagram: 02/03/17 0504 02/03/17 0503 Results 24 hrs Laboratory Tests Test 02/03/17 05:03 02/03/17 05:04 02/03/17 05:31 Sodium Level 151 H Potassium Level 3.6 Chloride Level 120 H Carbon Dioxide Level 18 L Anion Gap 17 H Blood Urea Nitrogen 66 H Creatinine 1.62 H Glucose Level 93 Calcium Level 8.4 Total Bilirubin 29.0 H Direct Bilirubin 26.30 *H Indirect Bilirubin 2.7 H Aspartate Amino Transf (AST/SGOT) 118 H Alanine Aminotransferase (ALT/SGPT) 63 Alkaline Phosphatase 522 H Total Protein 5.7 L Albumin 2.3 L Globulin 3.40 H Albumin/Globulin Ratio 0.67 White Blood Count 42.5 H Red Blood Count 2.36 L Hemoglobin 8.5 L Hematocrit 25.8 L Mean Corpuscular Volume 109.3 H Mean Corpuscular Hemoglobin 36.0 H Mean Corpuscular Hemoglobin Concent 32.9 Red Cell Distribution Width 22.9 H Platelet Count 48 #L Mean Platelet Volume Neutrophils % Segmented Neutrophils % (Manual) 88 H Band Neutrophils % (Manual) 4 Lymphocytes % (Manual) 3 L Monocytes % (Manual) 4 Eosinophils % Promyelocytes % (Manual) 1 H Nucleated Red Blood Cells % 0.6 H Neutrophils # Neutrophils # (Manual) 38.1 H Band Neutrophils # 1.7 H Absolute Lymphocytes (Manual) 1.2 Absolute Monocytes (Manual) 1.7 H Eosinophils # Promyelocytes # 0.4 H Platelet Estimate DECREASED Polychromasia 3+ Poikilocytosis 3+ Anisocytosis 3+ Macrocytosis 2+ Target Cells 1+ Acanthocytes 1+ Magnesium Level 1.9 Lab Scanned Report BLOOD TRANSFUSION Medications Current Medications Ondansetron HCl (Zofran Inj) 4 mg Q6H PRN IV NAUSEA AND/OR VOMITING Last administered on 01/03/17 14:52; Admin Dose 4 MG; Start 01/02/17 at 23:00 Rifaximin (Xifaxan) 550 mg BID PO Last administered on 02/03/17 09:35; Admin Dose 550 MG; Start 01/04/17 at 11:00 IV Flush (NS 10 ml) 10 ml PRN PRN IV IV PROTOCOL; Start 01/05/17 at 18:30 Prednisolone (Prelone (Ped)) 40 mg DAILY PO Last administered on 02/03/17 09: 34; Admin Dose 40 MG; Start 01/12/17 at 09:00 Nystatin (Nystatin Susp) 5 ml QID PO Last administered on 02/03/17 09:35; Admin Dose 5 ML; Start 01/13/17 at 17:00 Glucose (Glutose) 15 gm Q15M PRN PO DECREASED GLUCOSE; Start 01/15/17 at 18:30 Glucose (Glutose) 22.5 gm Q15M PRN PO DECREASED GLUCOSE; Start 01/15/17 at 18: 30 Dextrose (D50w Syringe) 25 ml Q15M PRN IV DECREASED GLUCOSE; Start 01/15/17 at 18:30 Dextrose (D50w Syringe) 50 ml Q15M PRN IV DECREASED GLUCOSE; Start 01/15/17 at 18:30 Glucagon (Glucagen) 1 mg Q15M PRN IM DECREASED GLUCOSE; Start 01/15/17 at 18:30 Glucose (Glutose) 15 gm Q15M PRN BUCCAL DECREASED GLUCOSE; Start 01/15/17 at 18 :30 Diazepam (Valium) 10 mg BID PRN PO ANXIETY Last administered on 01/31/17 00: 14; Admin Dose 10 MG; Start 01/20/17 at 11:00 Lactulose (Enulose) 20 gm BID PO Last administered on 02/03/17 09:35; Admin Dose 20 GM; Start 01/20/17 at 21:00 Morphine Sulfate (morphine) 1 mg Q4H PRN IM PAIN; Start 01/23/17 at 10:00 Folic Acid (Folic Acid) 1 mg DAILY PO Last administered on 02/03/17 09:35; Admin Dose 1 MG; Start 01/26/17 at 09:00 Thiamine HCl (Vitamin B1) 100 mg DAILY PO Last administered on 02/03/17 09:35 ; Admin Dose 100 MG; Start 01/26/17 at 09:00 Multivit/Ca Carb/ B Cmplx/FA/Prenat 1 tab 1 tab DAILY PO Last administered on 02/03/17 09:35; Admin Dose 1 TAB; Start 01/26/17 at 09:00 Caspofungin/ Sodium Chloride (Cancidas/NS) 250 ml @ 250 mls/hr Q24H IVPB Last administered on 02/02/17 13:30; Admin Dose 250 MLS/HR; Start 01/27/17 at 13: 30 Lorazepam (Ativan) 0.5 mg Q6H PRN IV AGITATION/ANXIETY Last administered on 20:49; Admin Dose 0.5 MG; Start 01/28/17 at 14:00 Famotidine (Pepcid) 20 mg Q12 PO Last administered on 02/03/17 09:35; Admin Dose 20 MG; Start 01/28/17 at 21:00 Morphine Sulfate 1 mg 1 mg Q4 PRN IV pain Last administered on 01/30/17 03:02 ; Admin Dose 1 MG; Start 01/29/17 at 17:00 Doxycycline Hyclate 100 mg/ Dextrose 250 ml @ 250 mls/hr Q12 IVPB Last administered on 02/03/17 10:35; Admin Dose 250 MLS/HR; Start 01/31/17 at 21: 00 Meropenem/Sodium Chloride 50 ml @ 100 mls/hr Q12 IVPB Last administered on 09:35; Admin Dose 100 MLS/HR; Start 02/01/17 at 21:00 Dextrose (D5W) 500 ml @ 50 mls/hr Q10H ONCE IV Last administered on 09:34; Admin Dose 50 MLS/HR; Start 02/03/17 at 09:00; Stop 02/03/17 at 18 :59 Assessment/Plan Chief Complaint/Hosp Course SUBJECTIVE: No events overnight per report. Awake, confused, sluggish, looks comfortable. No n/ vomiting, mother at bedside INDWELLINGS: The patient has a left upper extremity PICC line and rectal tube. Abx: Merrem, Doxycycline, Cancidas PHYSICAL EXAMINATION: GENERAL: Chronically ill-appearing, middle-aged man who is in no distress. HEENT: Head atraumatic, normocephalic. Sclerae anicteric. Buccal mucosa dry. NECK: Supple, trachea midline. CHEST: Rise symmetrical. Breath sounds diminished to bases. HEART: S1, S2. ABDOMEN: Distended, soft. Bowel tones hypoactive. EXTREMITIES: With trace edema. ASSESSMENT: 1. Persistent leukocytosis secondary to SBP, acute pancreatitis and also steroid induced. 2. Hepatic encephalopathy. 3. Alcoholic liver disease. 4. Recurrent ascites, status post paracentesis on admission, ==> repeated yesterday. 5. Acute renal failure, improving. 6. Hepatic encephalopathy. 7. Status post septic shock. PLAN: Remains unchanged continue broad sp coverage for SBP, continue aspiration precautions, GI/pulmonary/surgical rec-s DW mother at bedside Problems: ROSALIA BARKER NP Feb 03, 2017 12:36
[2017-02-03 13:00] VITALS: BP 123/69; RESP 20
[2017-02-03] MEDS: CASPOFUNGIN 35 MG in SOD CHLORIDE 0.9% 250 ML IVPB SCH (13:49)
--- NOTE | 2017-02-03 13:55 | PN ---
Date/Time of Note Date/Time of Note DATE: 02/03/17 TIME: 13:51 Assessment/Plan VTE Prophylaxis VTE Prophylaxis Intervention: contraindicated Lines/Catheters IV Catheter Type (from Nrs): PICC Line Central line still needed: Yes Reason Cath still needed: urinary retention Assessment/Plan Chief Complaint/Hosp Course 36 y/o with # NICOLAS likely Oliguric ATN vs HRS improved # Acute on chronic liver failure with alcholic hepatitis likely Etoh abuse with elevated INR, Hyperbilirubenemia, low platelets, elevated bilirubin # Hepatic encephalopathy improved # ETOH withdrawal on Ativan/librium tapered off # ETOH pancreatitis with Lipase 7690> trending down to 1999> trended down siginificantly # Non Gap Acidosis 2 to renal failure/diarrhoea # Leukocytosis now likely to steroids # Hypoxic Respiratory failure s/p Intubation now extubated on 01/15 # Thrombocytopenia # Anemia likely hemodilutional : no evidence of bleeding s/p EGD with gastritis and gastroparesis on PPI and Reglan # s/P EGD with gastritis and gastroparesis on Protonix and Reglan # Ileus s/p Small bowel follow thru which is negative, f/u Surgery # Ascites s/p paracentesis with +SBP s/p repeat paracentesis on 02/02 # Hypernatremia resolved after iv switched in D5W now hypernatremic again # Hypokalemia Plan - s/p Paracentesis yesterday - Aspiration precautions - iv abx per I.D on doxycycline, cancidas and Meropenam - Switch abx in D5W - Start D5W at 50 cc total 500 cc - c/w prednisolone 40 per GI - PT - Pt still requires active Hospital treatment very weak, debilitated, on 3 abx , D5 W , bilirubin still 26 actively followed by consultants - If LFT does not improve after steroid treatment for [address] Mercer, pt will likley need transfer to Liver transplant center, will talk to Dr Mercer again Problems: Subjective 24 Hr Interval Summary Free Text/Dictation s/p Paracentesis yesterday with removal of 3 L Pt awake and alert, slurry speech Na 150 today Exam/Review of Systems Vital Signs Vitals Vital Signs Date Time Temp Pulse Resp B/P Pulse Ox O2 Delivery O2 Flow Rate FiO2 02/03/17 13:00 98.0 79 20 123/69 95 02/02/17 02:45 Room Air Intake and Output 02/02/17 02/02/17 02/03/17 15:00 23:00 07:00 Intake Total 100 ml 1830 ml 700 ml Output Total 300 ml 900 ml Balance -200 ml 1830 ml -200 ml Exam Exam GNERAL: Well-developed, ill-appearing,jaundice,male who is in no distress.[place], alert HEENT: Head atraumatic, normocephalic. Sclerae anicteric. Buccal mucosa dry. NECK: Supple. CHEST: Rise symmetrical. Breath sounds diminished to bases. HEART: S1, S2. ABDOMEN: Distended, soft. Bowel tones present.ascites+ EXTREMITIES: With trace edema. [place] in place Results Result Diagram: 02/03/17 0504 02/03/17 0503 Results 24 hrs Laboratory Tests Test 02/03/17 05:03 02/03/17 05:04 02/03/17 05:31 Sodium Level 151 H Potassium Level 3.6 Chloride Level 120 H Carbon Dioxide Level 18 L Anion Gap 17 H Blood Urea Nitrogen 66 H Creatinine 1.62 H Glucose Level 93 Calcium Level 8.4 Total Bilirubin 29.0 H Direct Bilirubin 26.30 *H Indirect Bilirubin 2.7 H Aspartate Amino Transf (AST/SGOT) 118 H Alanine Aminotransferase (ALT/SGPT) 63 Alkaline Phosphatase 522 H Total Protein 5.7 L Albumin 2.3 L Globulin 3.40 H Albumin/Globulin Ratio 0.67 White Blood Count 42.5 H Red Blood Count 2.36 L Hemoglobin 8.5 L Hematocrit 25.8 L Mean Corpuscular Volume 109.3 H Mean Corpuscular Hemoglobin 36.0 H Mean Corpuscular Hemoglobin Concent 32.9 Red Cell Distribution Width 22.9 H Platelet Count 48 #L Mean Platelet Volume Neutrophils % Segmented Neutrophils % (Manual) 88 H Band Neutrophils % (Manual) 4 Lymphocytes % (Manual) 3 L Monocytes % (Manual) 4 Eosinophils % Promyelocytes % (Manual) 1 H Nucleated Red Blood Cells % 0.6 H Neutrophils # Neutrophils # (Manual) 38.1 H Band Neutrophils # 1.7 H Absolute Lymphocytes (Manual) 1.2 Absolute Monocytes (Manual) 1.7 H Eosinophils # Promyelocytes # 0.4 H Platelet Estimate DECREASED Polychromasia 3+ Poikilocytosis 3+ Anisocytosis 3+ Macrocytosis 2+ Target Cells 1+ Acanthocytes 1+ Magnesium Level 1.9 Lab Scanned Report BLOOD TRANSFUSION Medications Medications Current Medications Ondansetron HCl (Zofran Inj) 4 mg Q6H PRN IV NAUSEA AND/OR VOMITING Last administered on 01/03/17 14:52; Admin Dose 4 MG; Start 01/02/17 at 23:00 Rifaximin (Xifaxan) 550 mg BID PO Last administered on 02/03/17 09:35; Admin Dose 550 MG; Start 01/04/17 at 11:00 IV Flush (NS 10 ml) 10 ml PRN PRN IV IV PROTOCOL; Start 01/05/17 at 18:30 Prednisolone (Prelone (Ped)) 40 mg DAILY PO Last administered on 02/03/17 09: 34; Admin Dose 40 MG; Start 01/12/17 at 09:00 Nystatin (Nystatin Susp) 5 ml QID PO Last administered on 02/03/17 12:39; Admin Dose 5 ML; Start 01/13/17 at 17:00 Glucose (Glutose) 15 gm Q15M PRN PO DECREASED GLUCOSE; Start 01/15/17 at 18:30 Glucose (Glutose) 22.5 gm Q15M PRN PO DECREASED GLUCOSE; Start 01/15/17 at 18: 30 Dextrose (D50w Syringe) 25 ml Q15M PRN IV DECREASED GLUCOSE; Start 01/15/17 at 18:30 Dextrose (D50w Syringe) 50 ml Q15M PRN IV DECREASED GLUCOSE; Start 01/15/17 at 18:30 Glucagon (Glucagen) 1 mg Q15M PRN IM DECREASED GLUCOSE; Start 01/15/17 at 18:30 Glucose (Glutose) 15 gm Q15M PRN BUCCAL DECREASED GLUCOSE; Start 01/15/17 at 18 :30 Diazepam (Valium) 10 mg BID PRN PO ANXIETY Last administered on 01/31/17 00: 14; Admin Dose 10 MG; Start 01/20/17 at 11:00 Lactulose (Enulose) 20 gm BID PO Last administered on 02/03/17 09:35; Admin Dose 20 GM; Start 01/20/17 at 21:00 Morphine Sulfate (morphine) 1 mg Q4H PRN IM PAIN; Start 01/23/17 at 10:00 Folic Acid (Folic Acid) 1 mg DAILY PO Last administered on 02/03/17 09:35; Admin Dose 1 MG; Start 01/26/17 at 09:00 Thiamine HCl (Vitamin B1) 100 mg DAILY PO Last administered on 02/03/17 09:35 ; Admin Dose 100 MG; Start 01/26/17 at 09:00 Multivit/Ca Carb/ B Cmplx/FA/Prenat 1 tab 1 tab DAILY PO Last administered on 02/03/17 09:35; Admin Dose 1 TAB; Start 01/26/17 at 09:00 Caspofungin/ Sodium Chloride (Cancidas/NS) 250 ml @ 250 mls/hr Q24H IVPB Last administered on 02/03/17 13:49; Admin Dose 250 MLS/HR; Start 01/27/17 at 13: 30 Lorazepam (Ativan) 0.5 mg Q6H PRN IV AGITATION/ANXIETY Last administered on 20:49; Admin Dose 0.5 MG; Start 01/28/17 at 14:00 Famotidine (Pepcid) 20 mg Q12 PO Last administered on 02/03/17 09:35; Admin Dose 20 MG; Start 01/28/17 at 21:00 Morphine Sulfate 1 mg 1 mg Q4 PRN IV pain Last administered on 01/30/17 03:02 ; Admin Dose 1 MG; Start 01/29/17 at 17:00 Doxycycline Hyclate 100 mg/ Dextrose 250 ml @ 250 mls/hr Q12 IVPB Last administered on 02/03/17 10:35; Admin Dose 250 MLS/HR; Start 01/31/17 at 21: 00 Meropenem/Sodium Chloride 50 ml @ 100 mls/hr Q12 IVPB Last administered on 09:35; Admin Dose 100 MLS/HR; Start 02/01/17 at 21:00 Dextrose (D5W) 500 ml @ 50 mls/hr Q10H ONCE IV Last administered on 09:34; Admin Dose 50 MLS/HR; Start 02/03/17 at 09:00; Stop 02/03/17 at 18 :59 BRAEDEN LUNSFORD MD Feb 03, 2017 13:55
[2017-02-03 16:48] LABS: CALCIUM 8.5 mg/dl (8.4-10.2); CREATININE 1.57 mg/dl (0.61-1.24); POTASSIUM 3.4 mmol/L (3.5-5.1)
--- NOTE | 2017-02-03 17:15 | CONS ---
Date/Time of Note Date/Time of Note DATE: 02/03/17 TIME: 17:13 Assessment/Plan Assessment/Plan Additional Assessment/Plan IMPRESSION: 1. Delirium tremens patient is still shaky unable to stand on his feet and continues to have slurred speech 2. Hepatic encephalopathy. Better patient is now communicating with slurred speech, still confused 3. Alcoholic liver disease. Patient is on prednisolone, total bilirubin is not coming down 4. Pancreatitis. Amylase has come down . Lipase is down 5. Leukocytosis. Persistent most probably related to alcoholic hepatitis and steroid, is slowly coming down 6. Renal insufficiency. Though the urine output is good. Renal function has improved a lot with good urine output. Creatinine is coming down. 7. Pedal edema resolved 8. Thrombocytopenia better 9. Ileus, small bowel follow-through was negative 10. Patient's gastroparesis might be related to uremia better 11. Hypernatremia 12. Spontaneous bacterial peritonitis. Acetic fluid was cloudy, WBC polymorphs where greater than 250 second paracentesis fluid was no more cloudy Plan Continue 1 more week of prednisolone and then will taper it off it seems patient is not responding to prednisolone. After 1 week we should make arrangement to transfer the patient to tertiary care center Continue antibiotic as per ID Continue rifaximin and lactulose Monitor on this blood chemistry , Consultation Date/Type/Reason Admit Date/Time Jan 02, 2017 at 19:30 Type of Consultation: ID Referring Provider: BRAEDEN LUNSFORD MD 24 HR Interval Summary Free Text/Dictation Patient is sleepy Exam/Review of Systems Vital Signs Vitals Vital Signs Date Time Temp Pulse Resp B/P Pulse Ox O2 Delivery O2 Flow Rate FiO2 02/03/17 13:00 98.0 79 20 123/69 95 02/02/17 02:45 Room Air Intake and Output 02/02/17 02/02/17 02/03/17 15:00 23:00 07:00 Intake Total 100 ml 1830 ml 700 ml Output Total 300 ml 900 ml Balance -200 ml 1830 ml -200 ml Exam Constitutional: alert, oriented, well developed Psych: nl mood/affect, no complaints Head: atraumatic, normocephalic Eyes: EOMI, PERRL, nl conjunctiva, nl lids, nl sclera ENMT: nl external ears & nose, nl lips & teeth, nl nasal mucosa & septum Neck: non-tender, supple Respiratory: clear to auscultation, normal air movement Cardiovascular: nl pulses, regular rate and rhythm Gastrointestinal: nl liver, spleen, non-tender, soft Musculoskeletal: nl extremities to inspection, nl gait and stance Extremities: normal pulses Neurological: CYLINDER DYER II-XII intact, nl mental status, nl speech, nl strength Skin: nl turgor, No rash or lesions Lymph: nl lymph nodes Results Result Diagram: 02/03/17 0504 02/03/17 1614 Results 24 hrs Laboratory Tests Test 02/03/17 05:03 02/03/17 05:04 02/03/17 05:31 02/03/17 16:14 Sodium Level 151 H 148 H Potassium Level 3.6 3.4 L Chloride Level 120 H 120 H Carbon Dioxide Level 18 L 19 L Anion Gap 17 H 12 Blood Urea Nitrogen 66 H 64 H Creatinine 1.62 H 1.57 H Glucose Level 93 111 Calcium Level 8.4 8.5 Total Bilirubin 29.0 H Direct Bilirubin 26.30 *H Indirect Bilirubin 2.7 H Aspartate Amino Transf (AST/SGOT) 118 H Alanine Aminotransferase (ALT/SGPT) 63 Alkaline Phosphatase 522 H Total Protein 5.7 L Albumin 2.3 L Globulin 3.40 H Albumin/Globulin Ratio 0.67 White Blood Count 42.5 H Red Blood Count 2.36 L Hemoglobin 8.5 L Hematocrit 25.8 L Mean Corpuscular Volume 109.3 H Mean Corpuscular Hemoglobin 36.0 H Mean Corpuscular Hemoglobin Concent 32.9 Red Cell Distribution Width 22.9 H Platelet Count 48 #L Mean Platelet Volume Neutrophils % Segmented Neutrophils % (Manual) 88 H Band Neutrophils % (Manual) 4 Lymphocytes % (Manual) 3 L Monocytes % (Manual) 4 Eosinophils % Promyelocytes % (Manual) 1 H Nucleated Red Blood Cells % 0.6 H Neutrophils # Neutrophils # (Manual) 38.1 H Band Neutrophils # 1.7 H Absolute Lymphocytes (Manual) 1.2 Absolute Monocytes (Manual) 1.7 H Eosinophils # Promyelocytes # 0.4 H Platelet Estimate DECREASED Polychromasia 3+ Poikilocytosis 3+ Anisocytosis 3+ Macrocytosis 2+ Target Cells 1+ Acanthocytes 1+ Magnesium Level 1.9 Lab Scanned Report BLOOD TRANSFUSION Medications Medications Current Medications Ondansetron HCl (Zofran Inj) 4 mg Q6H PRN IV NAUSEA AND/OR VOMITING Last administered on 01/03/17 14:52; Admin Dose 4 MG; Start 01/02/17 at 23:00 IV Flush (NS 10 ml) 10 ml PRN PRN IV IV PROTOCOL; Start 01/05/17 at 18:30 Prednisolone (Prelone (Ped)) 40 mg DAILY PO Last administered on 02/03/17 09: 34; Admin Dose 40 MG; Start 01/12/17 at 09:00 Nystatin (Nystatin Susp) 5 ml QID PO Last administered on 02/03/17 12:39; Admin Dose 5 ML; Start 01/13/17 at 17:00 Glucose (Glutose) 15 gm Q15M PRN PO DECREASED GLUCOSE; Start 01/15/17 at 18:30 Glucose (Glutose) 22.5 gm Q15M PRN PO DECREASED GLUCOSE; Start 01/15/17 at 18: 30 Dextrose (D50w Syringe) 25 ml Q15M PRN IV DECREASED GLUCOSE; Start 01/15/17 at 18:30 Dextrose (D50w Syringe) 50 ml Q15M PRN IV DECREASED GLUCOSE; Start 01/15/17 at 18:30 Glucagon (Glucagen) 1 mg Q15M PRN IM DECREASED GLUCOSE; Start 01/15/17 at 18:30 Glucose (Glutose) 15 gm Q15M PRN BUCCAL DECREASED GLUCOSE; Start 01/15/17 at 18 :30 Diazepam (Valium) 10 mg BID PRN PO ANXIETY Last administered on 01/31/17 00: 14; Admin Dose 10 MG; Start 01/20/17 at 11:00 Lactulose (Enulose) 20 gm BID PO Last administered on 02/03/17 09:35; Admin Dose 20 GM; Start 01/20/17 at 21:00 Morphine Sulfate (morphine) 1 mg Q4H PRN IM PAIN; Start 01/23/17 at 10:00 Folic Acid (Folic Acid) 1 mg DAILY PO Last administered on 02/03/17 09:35; Admin Dose 1 MG; Start 01/26/17 at 09:00 Thiamine HCl (Vitamin B1) 100 mg DAILY PO Last administered on 02/03/17 09:35 ; Admin Dose 100 MG; Start 01/26/17 at 09:00 Multivit/Ca Carb/ B Cmplx/FA/Prenat 1 tab 1 tab DAILY PO Last administered on 02/03/17 09:35; Admin Dose 1 TAB; Start 01/26/17 at 09:00 Caspofungin/ Sodium Chloride (Cancidas/NS) 250 ml @ 250 mls/hr Q24H IVPB Last administered on 02/03/17 13:49; Admin Dose 250 MLS/HR; Start 01/27/17 at 13: 30 Lorazepam (Ativan) 0.5 mg Q6H PRN IV AGITATION/ANXIETY Last administered on 20:49; Admin Dose 0.5 MG; Start 01/28/17 at 14:00 Famotidine (Pepcid) 20 mg Q12 PO Last administered on 02/03/17 09:35; Admin Dose 20 MG; Start 01/28/17 at 21:00 Morphine Sulfate 1 mg 1 mg Q4 PRN IV pain Last administered on 01/30/17 03:02 ; Admin Dose 1 MG; Start 01/29/17 at 17:00 Doxycycline Hyclate 100 mg/ Dextrose 250 ml @ 250 mls/hr Q12 IVPB Last administered on 02/03/17 10:35; Admin Dose 250 MLS/HR; Start 01/31/17 at 21: 00 Meropenem/Sodium Chloride 50 ml @ 100 mls/hr Q12 IVPB Last administered on 09:35; Admin Dose 100 MLS/HR; Start 02/01/17 at 21:00 Dextrose (D5W) 500 ml @ 50 mls/hr Q10H ONCE IV Last administered on 09:34; Admin Dose 50 MLS/HR; Start 02/03/17 at 09:00; Stop 02/03/17 at 18 :59 LAURA CORDERO MD Feb 03, 2017 17:15
[2017-02-03] MEDS ORDERED: POTASSIUM CHLORIDE 250 ML IVPB ONE (18:30)
[2017-02-03 19:12] VITALS: BP 125/73; PULSE 73; RESP 13
[2017-02-03] MEDS ORDERED: POTASSIUM CHLORIDE 40 MEQ in DEXTROSE 5% 250 ML IVPB ONE (20:00)
--- NOTE | 2017-02-03 21:55 | PN ---
Date/Time of Note Date/Time of Note DATE: 02/03/17 TIME: 21:51 Assessment/Plan Lines/Catheters IV C[facility] Type [facility]from [facility] Saline Lock Assessment/Plan Chief Complaint/Hosp Course 1. Paralytic ileus 2nd acute processes. SBFT negative. Improved; +bowel function -Monitor 2. Acute on chronic alcoholic pancreatitis with peripancreatic fluid: CT: worsened pancreatitis -antimicrobials -Supportive measures -Judicious fluid management -Trend labs -Encourage cessation 3. Acute GI bleed from gastritis and esophageal varices secondary to alcoholism. Stable -Transfuse as needed -Supportive measures: ppi -Correct coagulopathy and platelet dysfunction 4. Anemia secondary to above: h/h stable -As above 5. Leukocytosis, multifactorial with SIRS and steroid therapy, ? infectious( pl. effusions, atelectasis vs. pna +/- pancreatitis-worsened on CT; ?sbp) -Close monitoring -follow ascitic fluid studies 6. Alcoholic hepatitis with hepatosplenomegaly, ascites; elevated LFT's ( improving); s/p paracentesis -Medical and GI optimization 7. Chronic alcohol abuse with Delirium Tremens; no tremors -Encourage cessation -Sedation/intubation 8. Subcapsular liver collection possible hematoma versus other -Monitor 9. Electrolyte imbalance -Correct with replacements and fluid management 10. Alcohol withdrawal with tachypnea, tachycardia and delirium tremens; improved -supportive 11. NICOLAS: improving -judicious fluids -avoid nephrotoxic meds 12. Atelectasis vs. pna -IS -increase activity-OOB as tolerated; PT Thank you. Patient seen and examined in collaboration with Dr. Bob Tristan. Problems: Subjective 24 Hr Interval Summary More awake and responsive. No acute events overnight. No fevers, chills, sob, congested cough, cp, palpitations, bateman, dizziness, n/v/d/dysuria. Exam/Review of Systems Vital Signs Vitals Vital Signs Date Time Temp Pulse Resp B/P Pulse Ox O2 Delivery O2 Flow Rate FiO2 02/11/17 23:55 79 20 100 40 02/11/17 22:05 97/54 Mechanical Ventilator 02/11/17 20:00 98.7 Intake and Output 02/11/17 02/11/17 02/12/17 15:00 23:00 07:00 Intake Total 1166.86 ml 400.0 ml Output Total 1035 ml 12 ml Balance 131.86 ml 388.0 ml Exam Free Text/Dictation Constitutional: Confused Not oriented. more alert Psych: No nl mood/affect Head: atraumatic, normocephalic, No hematomas, No lacerations Eyes: EOMI, PERRL, icteric ENMT: nl external ears & nose, nl lips & teeth. Mucosa pink and dry. icteric Neck: non-tender, supple, No jvd Respiratory: No congested cough, No labored breathing Cardiovascular: No edema, No regular rate and rhythm Gastrointestinal: soft, min-tender, non distended. No rebound or guarding Musculoskeletal: nl extremities to inspection, No joint tenderness; BLE edema Extremities: normal pulses, No calf tenderness, No cyanosis Neurological: Responsive Skin: rash or lesions (Jaundice), No diaphoresis, No nl turgor : minaya with luis output (improved; increased amount) Lymph: nl lymph nodes, nontender Results Result Diagram: 02/11/17 1759 02/11/17 1759 ELIO GIBBONS NP Feb 03, 2017 21:54
[2017-02-04 06:28] LABS: ABNORMAL IP MESSAGE 1; HEMATOCRIT 26.4 % (42.0-52.0); HEMOGLOBIN 8.8 g/dl (14.0-18.0); MEAN CORPUSCULAR HEMOGLOBIN 35.9 pg (29.0-33.0); MEAN CORPUSCULAR HGB CONC 33.3 g/dl (32.0-37.0); MEAN CORPUSCULAR VOLUME 107.8 fl (82.0-101.0); NUCLEATED RED BLOOD CELLS% 0.6 /100WBC (0.0-0.0); PLATELET COUNT 50 10^3/UL (140-415); POSITIVE DIFF @See below; RED BLOOD COUNT 2.45 10^6/ul (4.70-6.10); RED CELL DISTRIBUTION WIDTH 22.5 % (11.5-14.5); WHITE BLOOD COUNT 46.5 10^3/ul (4.8-10.8)
[2017-02-04 07:03] LABS: ALBUMIN 2.1 g/dl (3.3-4.9); ALBUMIN/GLOBULIN RATIO 0.56; BILIRUBIN,INDIRECT 2.4 mg/dl (0-1.1); CALCIUM 8.7 mg/dl (8.4-10.2); CREATININE 1.54 mg/dl (0.61-1.24); POTASSIUM 3.7 mmol/L (3.5-5.1); TOTAL PROTEIN 5.8 g/dl (6.1-8.1)
[2017-02-04 07:08] LABS: BILIRUBIN,DIRECT 26.6 mg/dl (0.00-0.20)
[2017-02-04 08:34] VITALS: BP 123/67; RESP 18
[2017-02-04] MEDS: BALSAM PERU/CASTOR OIL 60 GM TUBE TOP SCH ×2 (09:00→23:24)
[2017-02-04] MEDS: MEROPENEM 1 GM/50ML(PMX) 50 ML IVPB SCH (09:14)
[2017-02-04] MEDS: THIAMINE 100 MG TAB PO SCH (09:15)
[2017-02-04] MEDS: NYSTATIN SUSP 5 ML CUP PO SCH ×4 (09:15→23:25)
[2017-02-04] MEDS: FAMOTIDINE 20 MG TAB PO SCH ×2 (09:15→23:25)
[2017-02-04] MEDS: MULTIVIT/CA CARB/B CMPLX/FA TAB PO SCH (09:15)
[2017-02-04] MEDS: LACTULOSE 30ML CUP PO SCH ×2 (09:15→23:24)
[2017-02-04] MEDS: DOXYCYCLINE 100 MG in DEXTROSE 5% 250 ML IVPB SCH ×2 (09:15→23:24)
[2017-02-04] MEDS: FOLIC ACID 1 MG TAB PO SCH (09:15)
[2017-02-04] MEDS: predniSOLONE (3 MG/ML PO SYG) PO SCH (09:15)
[2017-02-04 09:48] LABS: ACANTHOCYTES 2+ (0-0); ANISOCYTOSIS 3+ (0-0); BURR CELLS 2+ (0-0); ERYTHROBLAST% (NRBC) (M) 1 % (0-0); GIANT THROMBO% (M) 4 % (0-0); METAMYELOCYTES %M 2 % (0-0); MONOCYTES % (M) 5 % (0-11); MYELOCYTES % (M) 1 % (0-0); PLATELET ESTIMATE SIG DECREASED; POIKILOCYTOSIS 3+ (0-0); POLYCHROMASIA 1+ (0-0); SCHISTOCYTES 1+ (0-0); SPHEROCYTES 1+ (0-0); TARGET CELLS 1+ (0-0)
[2017-02-04] MEDS ORDERED: ALTEPLASE (CATHFLO) 2 MG INJ CATHETER PRN (10:00)
--- NOTE | 2017-02-04 13:37 | CONS ---
Date/Time of Note Date/Time of Note DATE: 02/04/17 TIME: 13:36 Consult Date/Type/Reason Admit Date/Time Jan 02, 2017 at 19:30 Initial Consult Date 01/07/17 Type of Consultation: ID Ordering Provider: BRAEDEN LUNSFORD MD Objective Vital Signs Date Time Temp Pulse Resp B/P Pulse Ox O2 Delivery O2 Flow Rate FiO2 02/04/17 08:34 97.4 71 18 123/67 97 02/03/17 19:12 Room Air Intake and Output 02/03/17 02/03/17 02/04/17 15:00 23:00 07:00 Intake Total 550 ml 990 ml 520 ml Output Total 1100 ml Balance 550 ml -110 ml 520 ml Results/Medications Result Diagram: 02/04/17 0527 02/04/17 0527 Results 24 hrs Laboratory Tests Test 02/03/17 16:14 02/04/17 05:27 Sodium Level 148 H 148 H Potassium Level 3.4 L 3.7 Chloride Level 120 H 121 H Carbon Dioxide Level 19 L 17 L Anion Gap 12 14 Blood Urea Nitrogen 64 H 66 H Creatinine 1.57 H 1.54 H Glucose Level 111 106 Calcium Level 8.5 8.7 White Blood Count 46.5 H Red Blood Count 2.45 L Hemoglobin 8.8 L Hematocrit 26.4 L Mean Corpuscular Volume 107.8 H Mean Corpuscular Hemoglobin 35.9 H Mean Corpuscular Hemoglobin Concent 33.3 Red Cell Distribution Width 22.5 H Platelet Count 50 L Mean Platelet Volume Neutrophils % Segmented Neutrophils % (Manual) 88 H Band Neutrophils % (Manual) 1 Lymphocytes % Lymphocytes % (Manual) 3 L Monocytes % Monocytes % (Manual) 5 Eosinophils % Basophils % Metamyelocytes % (manual) 2 H Myelocytes % (Manual) 1 H Nucleated Red Blood Cells % 1 H Neutrophils # Neutrophils # (Manual) 41.1 H Band Neutrophils # 0.4 Absolute Lymphocytes (Manual) 1.3 Lymphocytes # Monocytes # Absolute Monocytes (Manual) 2.3 H Eosinophils # Basophils # Metamyelocytes # 0.9 H Myelocytes # 0.4 H Nucleated Red Blood Cells # Platelet Estimate SIG DECREASED Giant Platelets 4 H Platelet Morphology Comment @See below Polychromasia 1+ Poikilocytosis 3+ Basophilic Stippling 1+ Anisocytosis 3+ Macrocytosis 2+ Spherocytes 1+ Target Cells 1+ Acanthocytes 2+ Schistocytes 1+ Total Bilirubin 29.0 H Direct Bilirubin 26.60 *H Indirect Bilirubin 2.4 H Aspartate Amino Transf (AST/SGOT) 127 H Alanine Aminotransferase (ALT/SGPT) 73 H Alkaline Phosphatase 582 H Total Protein 5.8 L Albumin 2.1 L Globulin 3.70 H Albumin/Globulin Ratio 0.56 Medications Current Medications Ondansetron HCl (Zofran Inj) 4 mg Q6H PRN IV NAUSEA AND/OR VOMITING Last administered on 01/03/17 14:52; Admin Dose 4 MG; Start 01/02/17 at 23:00 IV Flush (NS 10 ml) 10 ml PRN PRN IV IV PROTOCOL; Start 01/05/17 at 18:30 Prednisolone (Prelone (Ped)) 40 mg DAILY PO Last administered on 02/04/17 09: 15; Admin Dose 40 MG; Start 01/12/17 at 09:00 Nystatin (Nystatin Susp) 5 ml QID PO Last administered on 02/04/17 09:15; Admin Dose 5 ML; Start 01/13/17 at 17:00 Glucose (Glutose) 15 gm Q15M PRN PO DECREASED GLUCOSE; Start 01/15/17 at 18:30 Glucose (Glutose) 22.5 gm Q15M PRN PO DECREASED GLUCOSE; Start 01/15/17 at 18: 30 Dextrose (D50w Syringe) 25 ml Q15M PRN IV DECREASED GLUCOSE; Start 01/15/17 at 18:30 Dextrose (D50w Syringe) 50 ml Q15M PRN IV DECREASED GLUCOSE; Start 01/15/17 at 18:30 Glucagon (Glucagen) 1 mg Q15M PRN IM DECREASED GLUCOSE; Start 01/15/17 at 18:30 Glucose (Glutose) 15 gm Q15M PRN BUCCAL DECREASED GLUCOSE; Start 01/15/17 at 18 :30 Diazepam (Valium) 10 mg BID PRN PO ANXIETY Last administered on 01/31/17 00: 14; Admin Dose 10 MG; Start 01/20/17 at 11:00 Lactulose (Enulose) 20 gm BID PO Last administered on 02/04/17 09:15; Admin Dose 20 GM; Start 01/20/17 at 21:00 Morphine Sulfate (morphine) 1 mg Q4H PRN IM PAIN; Start 01/23/17 at 10:00 Folic Acid (Folic Acid) 1 mg DAILY PO Last administered on 02/04/17 09:15; Admin Dose 1 MG; Start 01/26/17 at 09:00 Thiamine HCl (Vitamin B1) 100 mg DAILY PO Last administered on 02/04/17 09:15 ; Admin Dose 100 MG; Start 01/26/17 at 09:00 Multivit/Ca Carb/ B Cmplx/FA/Prenat 1 tab 1 tab DAILY PO Last administered on 02/04/17 09:15; Admin Dose 1 TAB; Start 01/26/17 at 09:00 Caspofungin/ Sodium Chloride (Cancidas/NS) 250 ml @ 250 mls/hr Q24H IVPB Last administered on 02/03/17 13:49; Admin Dose 250 MLS/HR; Start 01/27/17 at 13: 30 Lorazepam (Ativan) 0.5 mg Q6H PRN IV AGITATION/ANXIETY Last administered on 20:49; Admin Dose 0.5 MG; Start 01/28/17 at 14:00 Famotidine (Pepcid) 20 mg Q12 PO Last administered on 02/04/17 09:15; Admin Dose 20 MG; Start 01/28/17 at 21:00 Morphine Sulfate 1 mg 1 mg Q4 PRN IV pain Last administered on 01/30/17 03:02 ; Admin Dose 1 MG; Start 01/29/17 at 17:00 Doxycycline Hyclate 100 mg/ Dextrose 250 ml @ 250 mls/hr Q12 IVPB Last administered on 02/04/17 09:15; Admin Dose 250 MLS/HR; Start 01/31/17 at 21: 00 Meropenem/Sodium Chloride (Merrem 1 Gm/50 ml (Pmx)) 50 ml @ 100 mls/hr Q12 IVPB Last administered on 02/04/17 09:14; Admin Dose 100 MLS/HR; Start 02/01 at 21:00 Assessment/Plan Chief Complaint/Hosp Course SUBJECTIVE: No events overnight per report. Sleeping, looks comfortable. Mother at bedside INDWELLINGS: The patient has a left upper extremity PICC line and rectal tube. Abx: Merrem, Doxycycline, Cancidas PHYSICAL EXAMINATION: GENERAL: Chronically ill-appearing, middle-aged man who is in no distress. HEENT: Head atraumatic, normocephalic. Sclerae anicteric. Buccal mucosa dry. NECK: Supple, trachea midline. CHEST: Rise symmetrical. Breath sounds diminished to bases. HEART: S1, S2. ABDOMEN: Distended, soft. Bowel tones hypoactive. EXTREMITIES: With trace edema. ASSESSMENT: 1. Persistent leukocytosis secondary to SBP, acute pancreatitis and also steroid induced. 2. Hepatic encephalopathy. 3. Alcoholic liver disease. 4. Recurrent ascites, status post paracentesis on admission, ==> repeated yesterday. 5. Acute renal failure, improving. 6. Hepatic encephalopathy. 7. Status post septic shock. PLAN: Remains unchanged, continue broad sp coverage for SBP, continue aspiration precautions, check CXR, f/u GI/pulmonary/surgical rec-s DW mother at bedside Problems: ROSALIA BARKER NP Feb 04, 2017 13:37
[2017-02-04 13:57] VITALS: BP 122/81; RESP 18
[2017-02-04] MEDS: CASPOFUNGIN 35 MG in SOD CHLORIDE 0.9% 250 ML IVPB SCH (14:07)
--- NOTE | 2017-02-04 14:24 | CONS ---
Date/Time of Note Date/Time of Note DATE: 02/04/17 TIME: 14:22 Assessment/Plan Assessment/Plan Chief Complaint/Hosp Course IMPRESSION: 1. Delirium tremens patient is still shaky unable to stand on his feet and continues to have slurred speech 2. Hepatic encephalopathy. Better patient is now communicating with slurred speech, still confused 3. Alcoholic liver disease. Patient is on prednisolone, total bilirubin is not coming down 4. Pancreatitis. Amylase has come down . Lipase is down 5. Leukocytosis. Persistent most probably related to alcoholic hepatitis and steroid, is slowly coming down 6. Renal insufficiency. Though the urine output is good. Renal function has improved a lot with good urine output. Creatinine is coming down. 7. Pedal edema resolved 8. Thrombocytopenia better 9. Ileus, small bowel follow-through was negative 10. Patient's gastroparesis might be related to uremia better 11. Hypernatremia 12. Spontaneous bacterial peritonitis. Acetic fluid was cloudy, WBC polymorphs where greater than 250 second paracentesis fluid was no more cloudy Plan Continue 1 more week of prednisolone and then will taper it off it seems patient is not responding to prednisolone. After 1 week we should make arrangement to transfer the patient to tertiary care center Continue antibiotic as per ID Continue rifaximin and lactulose check ammonia tomorrow to see if it is coming down Alcohol cessation counseled to patient's mother to ask son to stop drinking. Problems: Consultation Date/Type/Reason Admit Date/Time Jan 02, 2017 at 19:30 Initial Consult Date 01/07/17 Type of Consultation: GI Referring Provider: BRAEDEN LUNSFORD MD 24 HR Interval Summary Free Text/Dictation sleepy, sedated Constitutional: disoriented Exam/Review of Systems Vital Signs Vitals Vital Signs Date Time Temp Pulse Resp B/P Pulse Ox O2 Delivery O2 Flow Rate FiO2 02/04/17 13:57 97.5 76 18 122/81 94 02/03/17 19:12 Room Air Intake and Output 02/03/17 02/03/17 02/04/17 15:00 23:00 07:00 Intake Total 550 ml 990 ml 520 ml Output Total 1100 ml Balance 550 ml -110 ml 520 ml Exam Constitutional: well developed Psych: confusion, nl mood/affect, no complaints Head: atraumatic, normocephalic Eyes: EOMI, icteric ENMT: mucosa pink and moist, nl external ears & nose, nl lips & teeth, nl nasal mucosa & septum Neck: non-tender, supple Respiratory: clear to auscultation, normal air movement Cardiovascular: nl pulses, regular rate and rhythm Gastrointestinal: bowel sounds, non-tender, soft Results Result Diagram: 02/04/17 0527 02/04/17 0527 Results 24 hrs Laboratory Tests Test 02/03/17 16:14 02/04/17 05:27 Sodium Level 148 H 148 H Potassium Level 3.4 L 3.7 Chloride Level 120 H 121 H Carbon Dioxide Level 19 L 17 L Anion Gap 12 14 Blood Urea Nitrogen 64 H 66 H Creatinine 1.57 H 1.54 H Glucose Level 111 106 Calcium Level 8.5 8.7 White Blood Count 46.5 H Red Blood Count 2.45 L Hemoglobin 8.8 L Hematocrit 26.4 L Mean Corpuscular Volume 107.8 H Mean Corpuscular Hemoglobin 35.9 H Mean Corpuscular Hemoglobin Concent 33.3 Red Cell Distribution Width 22.5 H Platelet Count 50 L Mean Platelet Volume Neutrophils % Segmented Neutrophils % (Manual) 88 H Band Neutrophils % (Manual) 1 Lymphocytes % Lymphocytes % (Manual) 3 L Monocytes % Monocytes % (Manual) 5 Eosinophils % Basophils % Metamyelocytes % (manual) 2 H Myelocytes % (Manual) 1 H Nucleated Red Blood Cells % 1 H Neutrophils # Neutrophils # (Manual) 41.1 H Band Neutrophils # 0.4 Absolute Lymphocytes (Manual) 1.3 Lymphocytes # Monocytes # Absolute Monocytes (Manual) 2.3 H Eosinophils # Basophils # Metamyelocytes # 0.9 H Myelocytes # 0.4 H Nucleated Red Blood Cells # Platelet Estimate SIG DECREASED Giant Platelets 4 H Platelet Morphology Comment @See below Polychromasia 1+ Poikilocytosis 3+ Basophilic Stippling 1+ Anisocytosis 3+ Macrocytosis 2+ Spherocytes 1+ Target Cells 1+ Acanthocytes 2+ Schistocytes 1+ Total Bilirubin 29.0 H Direct Bilirubin 26.60 *H Indirect Bilirubin 2.4 H Aspartate Amino Transf (AST/SGOT) 127 H Alanine Aminotransferase (ALT/SGPT) 73 H Alkaline Phosphatase 582 H Total Protein 5.8 L Albumin 2.1 L Globulin 3.70 H Albumin/Globulin Ratio 0.56 Medications Medications Current Medications Ondansetron HCl (Zofran Inj) 4 mg Q6H PRN IV NAUSEA AND/OR VOMITING Last administered on 01/03/17 14:52; Admin Dose 4 MG; Start 01/02/17 at 23:00 IV Flush (NS 10 ml) 10 ml PRN PRN IV IV PROTOCOL; Start 01/05/17 at 18:30 Prednisolone (Prelone (Ped)) 40 mg DAILY PO Last administered on 02/04/17 09: 15; Admin Dose 40 MG; Start 01/12/17 at 09:00 Nystatin (Nystatin Susp) 5 ml QID PO Last administered on 02/04/17 09:15; Admin Dose 5 ML; Start 01/13/17 at 17:00 Glucose (Glutose) 15 gm Q15M PRN PO DECREASED GLUCOSE; Start 01/15/17 at 18:30 Glucose (Glutose) 22.5 gm Q15M PRN PO DECREASED GLUCOSE; Start 01/15/17 at 18: 30 Dextrose (D50w Syringe) 25 ml Q15M PRN IV DECREASED GLUCOSE; Start 01/15/17 at 18:30 Dextrose (D50w Syringe) 50 ml Q15M PRN IV DECREASED GLUCOSE; Start 01/15/17 at 18:30 Glucagon (Glucagen) 1 mg Q15M PRN IM DECREASED GLUCOSE; Start 01/15/17 at 18:30 Glucose (Glutose) 15 gm Q15M PRN BUCCAL DECREASED GLUCOSE; Start 01/15/17 at 18 :30 Diazepam (Valium) 10 mg BID PRN PO ANXIETY Last administered on 01/31/17 00: 14; Admin Dose 10 MG; Start 01/20/17 at 11:00 Lactulose (Enulose) 20 gm BID PO Last administered on 02/04/17 09:15; Admin Dose 20 GM; Start 01/20/17 at 21:00 Morphine Sulfate (morphine) 1 mg Q4H PRN IM PAIN; Start 01/23/17 at 10:00 Folic Acid (Folic Acid) 1 mg DAILY PO Last administered on 02/04/17 09:15; Admin Dose 1 MG; Start 01/26/17 at 09:00 Thiamine HCl (Vitamin B1) 100 mg DAILY PO Last administered on 02/04/17 09:15 ; Admin Dose 100 MG; Start 01/26/17 at 09:00 Multivit/Ca Carb/ B Cmplx/FA/Prenat 1 tab 1 tab DAILY PO Last administered on 02/04/17 09:15; Admin Dose 1 TAB; Start 01/26/17 at 09:00 Caspofungin/ Sodium Chloride (Cancidas/NS) 250 ml @ 250 mls/hr Q24H IVPB Last administered on 02/04/17 14:07; Admin Dose 250 MLS/HR; Start 01/27/17 at 13: 30 Lorazepam (Ativan) 0.5 mg Q6H PRN IV AGITATION/ANXIETY Last administered on 20:49; Admin Dose 0.5 MG; Start 01/28/17 at 14:00 Famotidine (Pepcid) 20 mg Q12 PO Last administered on 02/04/17 09:15; Admin Dose 20 MG; Start 01/28/17 at 21:00 Morphine Sulfate 1 mg 1 mg Q4 PRN IV pain Last administered on 01/30/17 03:02 ; Admin Dose 1 MG; Start 01/29/17 at 17:00 Doxycycline Hyclate 100 mg/ Dextrose 250 ml @ 250 mls/hr Q12 IVPB Last administered on 02/04/17 09:15; Admin Dose 250 MLS/HR; Start 01/31/17 at 21: 00 Meropenem/Sodium Chloride (Merrem 1 Gm/50 ml (Pmx)) 50 ml @ 100 mls/hr Q12 IVPB Last administered on 02/04/17 09:14; Admin Dose 100 MLS/HR; Start 02/01 at 21:00 GLORIA FATIMA MD Feb 04, 2017 14:24
--- NOTE | 2017-02-04 17:02 | PN ---
Date/Time of Note Date/Time of Note DATE: 02/04/17 TIME: 17:00 Assessment/Plan VTE Prophylaxis VTE Prophylaxis Intervention: anti-embolic stocking, SCD's Lines/Catheters IV Catheter Type (from Nrsg): PICC Line Central line still needed: Yes Urinary Cath still in place: No (condom catheter ) Assessment/Plan Chief Complaint/Hosp Course 1. s/p upper GI bleed s/P EGD with gastritis and gastroparesis on Protonix and Reglan 2. ETOH withdrawal resolved 3. ETOH pancreatitis 4. Acute on chronic liver failure likely Etoh abuse with elevated INR, Hyperbilirubenemia, low platelets, 5. Hepatic encephalopathy with elevated Ammonia levels still 134 6. HX Depression 7. HX of Respiratory failure 8. NICOLAS likely prerenal vs HRS, Cr peaked to 2.12, 9. Severe Anemia 10. Leukocytosis could be pancreatitis vs aspiration on cefepime, 11. Hx of Bradycardia 12.. Paralytic ileus resolved 13. HYperkalemia Problems: Assessment/Plan 1. continue current regime Subjective 24 Hr Interval Summary Constitutional: disoriented, poor po Exam/Review of Systems Vital Signs Vitals Vital Signs Date Time Temp Pulse Resp B/P Pulse Ox O2 Delivery O2 Flow Rate FiO2 02/04/17 13:57 97.5 76 18 122/81 94 02/03/17 19:12 Room Air Intake and Output 02/03/17 02/03/17 02/04/17 15:00 23:00 07:00 Intake Total 550 ml 990 ml 520 ml Output Total 1100 ml Balance 550 ml -110 ml 520 ml Exam Constitutional: other (confused) Eyes: icteric Neck: supple Respiratory: clear to auscultation Cardiovascular: irregular rhythm Gastrointestinal: soft Results Result Diagram: 02/04/17 0527 02/04/17 0527 Results 24 hrs Laboratory Tests Test 02/04/17 05:27 White Blood Count 46.5 H Red Blood Count 2.45 L Hemoglobin 8.8 L Hematocrit 26.4 L Mean Corpuscular Volume 107.8 H Mean Corpuscular Hemoglobin 35.9 H Mean Corpuscular Hemoglobin Concent 33.3 Red Cell Distribution Width 22.5 H Platelet Count 50 L Mean Platelet Volume Neutrophils % Segmented Neutrophils % (Manual) 88 H Band Neutrophils % (Manual) 1 Lymphocytes % Lymphocytes % (Manual) 3 L Monocytes % Monocytes % (Manual) 5 Eosinophils % Basophils % Metamyelocytes % (manual) 2 H Myelocytes % (Manual) 1 H Nucleated Red Blood Cells % 1 H Neutrophils # Neutrophils # (Manual) 41.1 H Band Neutrophils # 0.4 Absolute Lymphocytes (Manual) 1.3 Lymphocytes # Monocytes # Absolute Monocytes (Manual) 2.3 H Eosinophils # Basophils # Metamyelocytes # 0.9 H Myelocytes # 0.4 H Nucleated Red Blood Cells # Platelet Estimate SIG DECREASED Giant Platelets 4 H Platelet Morphology Comment @See below Polychromasia 1+ Poikilocytosis 3+ Basophilic Stippling 1+ Anisocytosis 3+ Macrocytosis 2+ Spherocytes 1+ Target Cells 1+ Acanthocytes 2+ Schistocytes 1+ Sodium Level 148 H Potassium Level 3.7 Chloride Level 121 H Carbon Dioxide Level 17 L Anion Gap 14 Blood Urea Nitrogen 66 H Creatinine 1.54 H Glucose Level 106 Calcium Level 8.7 Total Bilirubin 29.0 H Direct Bilirubin 26.60 *H Indirect Bilirubin 2.4 H Aspartate Amino Transf (AST/SGOT) 127 H Alanine Aminotransferase (ALT/SGPT) 73 H Alkaline Phosphatase 582 H Total Protein 5.8 L Albumin 2.1 L Globulin 3.70 H Albumin/Globulin Ratio 0.56 Medications Medications Current Medications Ondansetron HCl (Zofran Inj) 4 mg Q6H PRN IV NAUSEA AND/OR VOMITING Last administered on 01/03/17 14:52; Admin Dose 4 MG; Start 01/02/17 at 23:00 IV Flush (NS 10 ml) 10 ml PRN PRN IV IV PROTOCOL; Start 01/05/17 at 18:30 Prednisolone (Prelone (Ped)) 40 mg DAILY PO Last administered on 02/04/17 09: 15; Admin Dose 40 MG; Start 01/12/17 at 09:00 Nystatin (Nystatin Susp) 5 ml QID PO Last administered on 02/04/17 09:15; Admin Dose 5 ML; Start 01/13/17 at 17:00 Glucose (Glutose) 15 gm Q15M PRN PO DECREASED GLUCOSE; Start 01/15/17 at 18:30 Glucose (Glutose) 22.5 gm Q15M PRN PO DECREASED GLUCOSE; Start 01/15/17 at 18: 30 Dextrose (D50w Syringe) 25 ml Q15M PRN IV DECREASED GLUCOSE; Start 01/15/17 at 18:30 Dextrose (D50w Syringe) 50 ml Q15M PRN IV DECREASED GLUCOSE; Start 01/15/17 at 18:30 Glucagon (Glucagen) 1 mg Q15M PRN IM DECREASED GLUCOSE; Start 01/15/17 at 18:30 Glucose (Glutose) 15 gm Q15M PRN BUCCAL DECREASED GLUCOSE; Start 01/15/17 at 18 :30 Diazepam (Valium) 10 mg BID PRN PO ANXIETY Last administered on 01/31/17 00: 14; Admin Dose 10 MG; Start 01/20/17 at 11:00 Lactulose (Enulose) 20 gm BID PO Last administered on 02/04/17 09:15; Admin Dose 20 GM; Start 01/20/17 at 21:00 Morphine Sulfate (morphine) 1 mg Q4H PRN IM PAIN; Start 01/23/17 at 10:00 Folic Acid (Folic Acid) 1 mg DAILY PO Last administered on 02/04/17 09:15; Admin Dose 1 MG; Start 01/26/17 at 09:00 Thiamine HCl (Vitamin B1) 100 mg DAILY PO Last administered on 02/04/17 09:15 ; Admin Dose 100 MG; Start 01/26/17 at 09:00 Multivit/Ca Carb/ B Cmplx/FA/Prenat 1 tab 1 tab DAILY PO Last administered on 02/04/17 09:15; Admin Dose 1 TAB; Start 01/26/17 at 09:00 Caspofungin/ Sodium Chloride (Cancidas/NS) 250 ml @ 250 mls/hr Q24H IVPB Last administered on 02/04/17 14:07; Admin Dose 250 MLS/HR; Start 01/27/17 at 13: 30 Lorazepam (Ativan) 0.5 mg Q6H PRN IV AGITATION/ANXIETY Last administered on 20:49; Admin Dose 0.5 MG; Start 01/28/17 at 14:00 Famotidine (Pepcid) 20 mg Q12 PO Last administered on 02/04/17 09:15; Admin Dose 20 MG; Start 01/28/17 at 21:00 Morphine Sulfate 1 mg 1 mg Q4 PRN IV pain Last administered on 01/30/17 03:02 ; Admin Dose 1 MG; Start 01/29/17 at 17:00 Doxycycline Hyclate 100 mg/ Dextrose 250 ml @ 250 mls/hr Q12 IVPB Last administered on 02/04/17 09:15; Admin Dose 250 MLS/HR; Start 01/31/17 at 21: 00 Meropenem/Sodium Chloride (Merrem 1 Gm/50 ml (Pmx)) 50 ml @ 100 mls/hr Q12 IVPB Last administered on 02/04/17 09:14; Admin Dose 100 MLS/HR; Start 02/01 at 21:00 KIM HOLLIS Feb 04, 2017 17:02
--- NOTE | 2017-02-04 17:09 | PN ---
Date/Time of Note Date/Time of Note DATE: 02/04/17 TIME: 17:09 Assessment/Plan Lines/Catheters IV Catheter Type (from [facility]): PICC Line [place] in Place (from [facility]): No (condom catheter ) Assessment/Plan Chief Complaint/Hosp Course 1. Paralytic ileus 2nd acute processes. SBFT negative. Improved; +bowel function -Monitor 2. Acute on chronic alcoholic pancreatitis with peripancreatic fluid: CT: worsened pancreatitis -antimicrobials -Supportive measures -Judicious fluid management -Trend labs -Encourage cessation 3. Acute GI bleed from gastritis and esophageal varices secondary to alcoholism. Stable -Transfuse as needed -Supportive measures: ppi -Correct coagulopathy and platelet dysfunction 4. Anemia secondary to above: h/h stable -As above 5. Leukocytosis, multifactorial with SIRS and steroid therapy, ? infectious( pl. effusions, atelectasis vs. pna +/- pancreatitis-worsened on CT sbp -Close monitoring -follow ascitic fluid studies 6. Alcoholic hepatitis with hepatosplenomegaly, ascites; elevated LFT's ( improving); s/p paracentesis -Medical and GI optimization 7. Chronic alcohol abuse with Delirium Tremens; no tremors -Encourage cessation -Sedation/intubation 8. Subcapsular liver collection possible hematoma versus other -Monitor 9. Electrolyte imbalance -Correct with replacements and fluid management 10. Alcohol withdrawal with tachypnea, tachycardia and delirium tremens; continues to be confused -supportive 11. NICOLAS: -judicious fluids -avoid nephrotoxic meds 12. Atelectasis vs. pna -IS -increase activity-OOB as tolerated; PT Thank you. Patient seen and examined in collaboration with Dr. Bob Tristan. Problems: Subjective 24 Hr Interval Summary No overnight events. Somnolent and confused. No fevers, chills, sob, congested cough, cp, palpitations, [place], dizziness, n/v/d/dysuria. Exam/Review of Systems Vital Signs Vitals Vital Signs Date Time Temp Pulse Resp B/P Pulse Ox O2 Delivery O2 Flow Rate FiO2 02/11/17 23:55 79 20 100 40 02/11/17 22:05 97/54 Mechanical Ventilator 02/11/17 20:00 98.7 Intake and Output 02/11/17 02/11/17 02/12/17 15:00 23:00 07:00 Intake Total 1166.86 ml 400.0 ml Output Total 1035 ml 12 ml Balance 131.86 ml 388.0 ml Exam Free Text/Dictation Constitutional: Confused Not oriented. more alert Psych: No nl mood/affect Head: atraumatic, normocephalic, No hematomas, No lacerations Eyes: EOMI, PERRL, icteric ENMT: nl external ears & nose, nl lips & teeth. Mucosa pink and dry. icteric Neck: non-tender, supple, No jvd Respiratory: No congested cough, No labored breathing Cardiovascular: No edema, No regular rate and rhythm Gastrointestinal: soft, min-tender, non distended. No rebound or guarding Musculoskeletal: nl extremities to inspection, No joint tenderness; BLE edema Extremities: normal pulses, No calf tenderness, No cyanosis Neurological: Responsive Skin: rash or lesions (Jaundice), No diaphoresis, No nl turgor : luis output, nl penis/scrotum Lymph: nl lymph nodes, nontender Results Result Diagram: 02/11/17 1759 02/11/17 1759 ELIO GIBBONS NP Feb 04, 2017 17:09
--- NOTE | 2017-02-04 17:17 | CONS ---
Date/Time of Note Date/Time of Note DATE: 02/04/17 TIME: 17:16 Consult Date/Type/Reason Admit Date/Time Jan 02, 2017 at 19:30 Initial Consult Date 01/07/17 Type of Consultation: Pulm Ordering Provider: BRAEDEN LUNSFORD MD Subjective No events. Objective Vital Signs Date Time Temp Pulse Resp B/P Pulse Ox O2 Delivery O2 Flow Rate FiO2 02/04/17 13:57 97.5 76 18 122/81 94 02/03/17 19:12 Room Air Intake and Output 02/03/17 02/03/17 02/04/17 15:00 23:00 07:00 Intake Total 550 ml 990 ml 520 ml Output Total 1100 ml Balance 550 ml -110 ml 520 ml Exam HEENT: Neck supple; no JVD; no LAD CVS: RRR, S1 and S2 CHEST: Clear ABD: Soft, NT, + BS; + ascites EXT: No c/c/e Results/Medications Result Diagram: 02/04/17 0527 02/04/17 0527 Results 24 hrs Laboratory Tests Test 02/04/17 05:27 White Blood Count 46.5 H Red Blood Count 2.45 L Hemoglobin 8.8 L Hematocrit 26.4 L Mean Corpuscular Volume 107.8 H Mean Corpuscular Hemoglobin 35.9 H Mean Corpuscular Hemoglobin Concent 33.3 Red Cell Distribution Width 22.5 H Platelet Count 50 L Mean Platelet Volume Neutrophils % Segmented Neutrophils % (Manual) 88 H Band Neutrophils % (Manual) 1 Lymphocytes % Lymphocytes % (Manual) 3 L Monocytes % Monocytes % (Manual) 5 Eosinophils % Basophils % Metamyelocytes % (manual) 2 H Myelocytes % (Manual) 1 H Nucleated Red Blood Cells % 1 H Neutrophils # Neutrophils # (Manual) 41.1 H Band Neutrophils # 0.4 Absolute Lymphocytes (Manual) 1.3 Lymphocytes # Monocytes # Absolute Monocytes (Manual) 2.3 H Eosinophils # Basophils # Metamyelocytes # 0.9 H Myelocytes # 0.4 H Nucleated Red Blood Cells # Platelet Estimate SIG DECREASED Giant Platelets 4 H Platelet Morphology Comment @See below Polychromasia 1+ Poikilocytosis 3+ Basophilic Stippling 1+ Anisocytosis 3+ Macrocytosis 2+ Spherocytes 1+ Target Cells 1+ Acanthocytes 2+ Schistocytes 1+ Sodium Level 148 H Potassium Level 3.7 Chloride Level 121 H Carbon Dioxide Level 17 L Anion Gap 14 Blood Urea Nitrogen 66 H Creatinine 1.54 H Glucose Level 106 Calcium Level 8.7 Total Bilirubin 29.0 H Direct Bilirubin 26.60 *H Indirect Bilirubin 2.4 H Aspartate Amino Transf (AST/SGOT) 127 H Alanine Aminotransferase (ALT/SGPT) 73 H Alkaline Phosphatase 582 H Total Protein 5.8 L Albumin 2.1 L Globulin 3.70 H Albumin/Globulin Ratio 0.56 Medications Current Medications Ondansetron HCl (Zofran Inj) 4 mg Q6H PRN IV NAUSEA AND/OR VOMITING Last administered on 01/03/17 14:52; Admin Dose 4 MG; Start 01/02/17 at 23:00 IV Flush (NS 10 ml) 10 ml PRN PRN IV IV PROTOCOL; Start 01/05/17 at 18:30 Prednisolone (Prelone (Ped)) 40 mg DAILY PO Last administered on 02/04/17 09: 15; Admin Dose 40 MG; Start 01/12/17 at 09:00 Nystatin (Nystatin Susp) 5 ml QID PO Last administered on 02/04/17 09:15; Admin Dose 5 ML; Start 01/13/17 at 17:00 Glucose (Glutose) 15 gm Q15M PRN PO DECREASED GLUCOSE; Start 01/15/17 at 18:30 Glucose (Glutose) 22.5 gm Q15M PRN PO DECREASED GLUCOSE; Start 01/15/17 at 18: 30 Dextrose (D50w Syringe) 25 ml Q15M PRN IV DECREASED GLUCOSE; Start 01/15/17 at 18:30 Dextrose (D50w Syringe) 50 ml Q15M PRN IV DECREASED GLUCOSE; Start 01/15/17 at 18:30 Glucagon (Glucagen) 1 mg Q15M PRN IM DECREASED GLUCOSE; Start 01/15/17 at 18:30 Glucose (Glutose) 15 gm Q15M PRN BUCCAL DECREASED GLUCOSE; Start 01/15/17 at 18 :30 Diazepam (Valium) 10 mg BID PRN PO ANXIETY Last administered on 01/31/17 00: 14; Admin Dose 10 MG; Start 01/20/17 at 11:00 Lactulose (Enulose) 20 gm BID PO Last administered on 02/04/17 09:15; Admin Dose 20 GM; Start 01/20/17 at 21:00 Morphine Sulfate (morphine) 1 mg Q4H PRN IM PAIN; Start 01/23/17 at 10:00 Folic Acid (Folic Acid) 1 mg DAILY PO Last administered on 02/04/17 09:15; Admin Dose 1 MG; Start 01/26/17 at 09:00 Thiamine HCl (Vitamin B1) 100 mg DAILY PO Last administered on 02/04/17 09:15 ; Admin Dose 100 MG; Start 01/26/17 at 09:00 Multivit/Ca Carb/ B Cmplx/FA/Prenat 1 tab 1 tab DAILY PO Last administered on 02/04/17 09:15; Admin Dose 1 TAB; Start 01/26/17 at 09:00 Caspofungin/ Sodium Chloride (Cancidas/NS) 250 ml @ 250 mls/hr Q24H IVPB Last administered on 02/04/17 14:07; Admin Dose 250 MLS/HR; Start 01/27/17 at 13: 30 Lorazepam (Ativan) 0.5 mg Q6H PRN IV AGITATION/ANXIETY Last administered on 20:49; Admin Dose 0.5 MG; Start 01/28/17 at 14:00 Famotidine (Pepcid) 20 mg Q12 PO Last administered on 02/04/17 09:15; Admin Dose 20 MG; Start 01/28/17 at 21:00 Morphine Sulfate 1 mg 1 mg Q4 PRN IV pain Last administered on 01/30/17 03:02 ; Admin Dose 1 MG; Start 01/29/17 at 17:00 Doxycycline Hyclate 100 mg/ Dextrose 250 ml @ 250 mls/hr Q12 IVPB Last administered on 02/04/17 09:15; Admin Dose 250 MLS/HR; Start 01/31/17 at 21: 00 Meropenem/Sodium Chloride (Merrem 1 Gm/50 ml (Pmx)) 50 ml @ 100 mls/hr Q12 IVPB Last administered on 02/04/17 09:14; Admin Dose 100 MLS/HR; Start 02/01 at 21:00 Assessment/Plan Additional Assessment/Plan IMP: 1. Alc Hepatitis 2. Waxing and waning mental status due to underlying hepatic encephalopathy. 3. Anemia. Hematocrit is stable. Status post EGD. 4. Persistent hyperbilirubinemia. 5. Acute pancreatitis. 6. Probable subacute bacterial peritonitis 7. Thrombocytopenia. 8. Persistent severe leukocytosis. RECS: 1. Strict aspiration precautions 2. BD's prn AUGUST WARNER MD Feb 04, 2017 17:17
--- NOTE | 2017-02-04 17:29 | RADRPT ---
PROCEDURE: XR Chest. CLINICAL INDICATION: Shortness of breath. TECHNIQUE: Single frontal view. COMPARISON: 01/30/2017. FINDINGS: The left arm PICC line is in satisfactory position with the tip in the cavoatrial junction region. T here is mild pulmonary edema, unchanged. The lungs are otherwise clear. The heart size is normal. There is no pleural effusion. There is no pneumothorax. IMPRESSION: 1. Left arm PICC line in satisfactory position. 2. Mild pulmonary edema, unchanged. 3. Otherwise normal chest x-ray. RPTAT: QQ .Jesse Sanchez MD, Date Time Electronically viewed and signed by .Jesse Sanchez MD, MD on 02/04/2017 17:28 .R/
[2017-02-04 20:15] VITALS: BP 129/68; RESP 20
[2017-02-04 22:15] VITALS: BP 119/57; RESP 20
[2017-02-05] VITALS (11 sets, daily range): BP systolic 116–128; BP diastolic 56–74; PULSE 69–93; RESP 16–20
[2017-02-05] MEDS: MEROPENEM 1 GM/50ML(PMX) 50 ML IVPB SCH ×3 (00:26→22:40)
[2017-02-05] MEDS: LORAZEPAM 2 MG INJ IV PRN (01:51)
[2017-02-05] MEDS: DIAZEPAM 5 MG TAB PO PRN (03:11)
[2017-02-05] MEDS: FAMOTIDINE 20 MG TAB PO SCH ×2 (08:48→22:41)
[2017-02-05] MEDS: THIAMINE 100 MG TAB PO SCH (08:48)
[2017-02-05] MEDS: FOLIC ACID 1 MG TAB PO SCH (08:48)
[2017-02-05] MEDS: MULTIVIT/CA CARB/B CMPLX/FA TAB PO SCH (08:48)
[2017-02-05] MEDS: predniSOLONE (3 MG/ML PO SYG) PO SCH (08:49)
[2017-02-05] MEDS: LACTULOSE 30ML CUP PO SCH ×2 (08:50→22:41)
[2017-02-05] MEDS: NYSTATIN SUSP 5 ML CUP PO SCH ×4 (08:50→22:40)
[2017-02-05] MEDS: BALSAM PERU/CASTOR OIL 60 GM TUBE TOP SCH ×2 (08:50→22:43)
[2017-02-05] MEDS: DOXYCYCLINE 100 MG in DEXTROSE 5% 250 ML IVPB SCH ×2 (09:15→23:34)
--- NOTE | 2017-02-05 12:59 | PN ---
Date/Time of Note Date/Time of Note DATE: 02/05/17 TIME: 12:57 Assessment/Plan VTE Prophylaxis VTE Prophylaxis Intervention: SCD's Lines/Catheters IV Catheter Type (from Nrsg): PICC Line Central line still needed: Yes Urinary Cath still in place: No (condom catheter ) Assessment/Plan Chief Complaint/Hosp Course 1. s/p upper GI bleed s/P EGD with gastritis and gastroparesis on Protonix and Reglan 2. ETOH withdrawal resolved 3. ETOH pancreatitis 4. Acute on chronic liver failure likely Etoh abuse with elevated INR, Hyperbilirubenemia, low platelets, 5. Hepatic encephalopathy 6. HX Depression 7. HX of Respiratory failure 8. NICOLAS likely prerenal vs HRS, Cr peaked to 2.12, 9. Severe Anemia 10. Leukocytosis 11. Hx of Bradycardia 12.. Paralytic ileus resolved 13. HYperkalemia, resolved Problems: Assessment/Plan 1. continue care 2.D/c sitter,keep pt close to nursing station Subjective 24 Hr Interval Summary Subjective hx not possible: pt non-verbal Exam/Review of Systems Vital Signs Vitals Vital Signs Date Time Temp Pulse Resp B/P Pulse Ox O2 Delivery O2 Flow Rate FiO2 02/05/17 08:02 97.8 93 18 119/74 94 02/03/17 19:12 Room Air Intake and Output 02/04/17 02/04/17 02/05/17 15:00 23:00 07:00 Intake Total 300 ml 960 ml 300 ml Output Total 900 ml Balance 300 ml 60 ml 300 ml Exam Constitutional: other (confused) Head: normocephalic Eyes: icteric ENMT: nl external ears & nose Neck: supple Respiratory: diminished breath sounds Results Result Diagram: 02/04/17 0527 02/04/17 0527 Results 24 hrs Laboratory Tests Test 02/05/17 05:38 Lab Scanned Report BLOOD TRANSFUSION Medications Medications Current Medications Ondansetron HCl (Zofran Inj) 4 mg Q6H PRN IV NAUSEA AND/OR VOMITING Last administered on 01/03/17 14:52; Admin Dose 4 MG; Start 01/02/17 at 23:00 IV Flush (NS 10 ml) 10 ml PRN PRN IV IV PROTOCOL; Start 01/05/17 at 18:30 Prednisolone (Prelone (Ped)) 40 mg DAILY PO Last administered on 02/05/17 08: 49; Admin Dose 40 MG; Start 01/12/17 at 09:00 Nystatin (Nystatin Susp) 5 ml QID PO Last administered on 02/05/17 08:50; Admin Dose 5 ML; Start 01/13/17 at 17:00 Glucose (Glutose) 15 gm Q15M PRN PO DECREASED GLUCOSE; Start 01/15/17 at 18:30 Glucose (Glutose) 22.5 gm Q15M PRN PO DECREASED GLUCOSE; Start 01/15/17 at 18: 30 Dextrose (D50w Syringe) 25 ml Q15M PRN IV DECREASED GLUCOSE; Start 01/15/17 at 18:30 Dextrose (D50w Syringe) 50 ml Q15M PRN IV DECREASED GLUCOSE; Start 01/15/17 at 18:30 Glucagon (Glucagen) 1 mg Q15M PRN IM DECREASED GLUCOSE; Start 01/15/17 at 18:30 Glucose (Glutose) 15 gm Q15M PRN BUCCAL DECREASED GLUCOSE; Start 01/15/17 at 18 :30 Diazepam (Valium) 10 mg BID PRN PO ANXIETY Last administered on 02/05/17 03: 11; Admin Dose 10 MG; Start 01/20/17 at 11:00 Lactulose (Enulose) 20 gm BID PO Last administered on 02/05/17 08:50; Admin Dose 20 GM; Start 01/20/17 at 21:00 Morphine Sulfate (morphine) 1 mg Q4H PRN IM PAIN; Start 01/23/17 at 10:00 Folic Acid (Folic Acid) 1 mg DAILY PO Last administered on 02/05/17 08:48; Admin Dose 1 MG; Start 01/26/17 at 09:00 Thiamine HCl (Vitamin B1) 100 mg DAILY PO Last administered on 02/05/17 08:48 ; Admin Dose 100 MG; Start 01/26/17 at 09:00 Multivit/Ca Carb/ B Cmplx/FA/Prenat 1 tab 1 tab DAILY PO Last administered on 02/05/17 08:48; Admin Dose 1 TAB; Start 01/26/17 at 09:00 Caspofungin/ Sodium Chloride (Cancidas/NS) 250 ml @ 250 mls/hr Q24H IVPB Last administered on 02/04/17 14:07; Admin Dose 250 MLS/HR; Start 01/27/17 at 13: 30 Lorazepam (Ativan) 0.5 mg Q6H PRN IV AGITATION/ANXIETY Last administered on 01:51; Admin Dose 0.5 MG; Start 01/28/17 at 14:00 Famotidine (Pepcid) 20 mg Q12 PO Last administered on 02/05/17 08:48; Admin Dose 20 MG; Start 01/28/17 at 21:00 Morphine Sulfate 1 mg 1 mg Q4 PRN IV pain Last administered on 01/30/17 03:02 ; Admin Dose 1 MG; Start 01/29/17 at 17:00 Doxycycline Hyclate 100 mg/ Dextrose 250 ml @ 250 mls/hr Q12 IVPB Last administered on 02/05/17 09:15; Admin Dose 250 MLS/HR; Start 01/31/17 at 21: 00 Meropenem/Sodium Chloride (Merrem 1 Gm/50 ml (Pmx)) 50 ml @ 100 mls/hr Q12 IVPB Last administered on 02/05/17 09:15; Admin Dose 100 MLS/HR; Start 02/01 at 21:00 KIM HOLLIS Feb 05, 2017 12:59
[2017-02-05] MEDS: CASPOFUNGIN 35 MG in SOD CHLORIDE 0.9% 250 ML IVPB SCH (13:53)
--- NOTE | 2017-02-05 14:22 | CONS ---
Date/Time of Note Date/Time of Note DATE: 02/05/17 TIME: 14:17 Assessment/Plan Assessment/Plan Chief Complaint/Hosp Course Assessment/Plan Chief Complaint/Hosp Course SUBJECTIVE: No acute events overnight. Sleeping. No Acute Distress. Vital Signs: T-97.8 BP- 119/74 HR- 93 [id number]-30% INDWELLINGS: The patient has a left upper extremity PICC line and rectal tube. Abx: Merrem, Doxycycline, Cancidas PHYSICAL EXAMINATION: GENERAL: Chronically ill-appearing, middle-aged man who is in no distress. HEENT: Head atraumatic, normocephalic. Sclerae anicteric. Buccal mucosa dry. NECK: Supple, trachea midline. CHEST: Rise symmetrical. Breath sounds diminished to bases. HEART: S1, S2. ABDOMEN: Distended, soft. Bowel tones hypoactive. EXTREMITIES: With trace edema. ASSESSMENT: 1. Persistent leukocytosis secondary to SBP, acute pancreatitis and also steroid induced. 2. Hepatic encephalopathy. 3. Alcoholic liver disease. 4. Recurrent ascites, status post paracentesis on admission, ==> repeated yesterday. 5. Acute renal failure, improving. 6. Hepatic encephalopathy. 7. Status post septic shock. 8. Pneumonia Ruled Out PLAN: Monitor Hemodynamic Status. Continue Antibiotics. Monitor Neurological status. Continue with [place] recommendations. Monitor Labs. Problems: Consultation Date/Type/Reason Admit Date/Time Jan 02, 2017 at 19:30 Initial Consult Date 01/07/17 Type of Consultation: id Referring Provider: BRAEDEN LUNSFORD MD Exam/Review of Systems Vital Signs Vitals Vital Signs Date Time Temp Pulse Resp B/P Pulse Ox O2 Delivery O2 Flow Rate FiO2 02/05/17 08:02 97.8 93 18 119/74 94 02/03/17 19:12 Room Air Intake and Output 02/04/17 02/04/17 02/05/17 15:00 23:00 07:00 Intake Total 300 ml 960 ml 300 ml Output Total 900 ml Balance 300 ml 60 ml 300 ml Results Result Diagram: 02/04/17 0527 02/04/17 0527 Results 24 hrs Laboratory Tests Test 02/05/17 05:38 Lab Scanned Report BLOOD TRANSFUSION Medications Medications Current Medications Ondansetron HCl (Zofran Inj) 4 mg Q6H PRN IV NAUSEA AND/OR VOMITING Last administered on 01/03/17 14:52; Admin Dose 4 MG; Start 01/02/17 at 23:00 IV Flush (NS 10 ml) 10 ml PRN PRN IV IV PROTOCOL; Start 01/05/17 at 18:30 Prednisolone (Prelone (Ped)) 40 mg DAILY PO Last administered on 02/05/17 08: 49; Admin Dose 40 MG; Start 01/12/17 at 09:00 Nystatin (Nystatin Susp) 5 ml QID PO Last administered on 02/05/17 08:50; Admin Dose 5 ML; Start 01/13/17 at 17:00 Glucose (Glutose) 15 gm Q15M PRN PO DECREASED GLUCOSE; Start 01/15/17 at 18:30 Glucose (Glutose) 22.5 gm Q15M PRN PO DECREASED GLUCOSE; Start 01/15/17 at 18: 30 Dextrose (D50w Syringe) 25 ml Q15M PRN IV DECREASED GLUCOSE; Start 01/15/17 at 18:30 Dextrose (D50w Syringe) 50 ml Q15M PRN IV DECREASED GLUCOSE; Start 01/15/17 at 18:30 Glucagon (Glucagen) 1 mg Q15M PRN IM DECREASED GLUCOSE; Start 01/15/17 at 18:30 Glucose (Glutose) 15 gm Q15M PRN BUCCAL DECREASED GLUCOSE; Start 01/15/17 at 18 :30 Diazepam (Valium) 10 mg BID PRN PO ANXIETY Last administered on 02/05/17 03: 11; Admin Dose 10 MG; Start 01/20/17 at 11:00 Lactulose (Enulose) 20 gm BID PO Last administered on 02/05/17 08:50; Admin Dose 20 GM; Start 01/20/17 at 21:00 Morphine Sulfate (morphine) 1 mg Q4H PRN IM PAIN; Start 01/23/17 at 10:00 Folic Acid (Folic Acid) 1 mg DAILY PO Last administered on 02/05/17 08:48; Admin Dose 1 MG; Start 01/26/17 at 09:00 Thiamine HCl (Vitamin B1) 100 mg DAILY PO Last administered on 02/05/17 08:48 ; Admin Dose 100 MG; Start 01/26/17 at 09:00 Multivit/Ca Carb/ B Cmplx/FA/Prenat 1 tab 1 tab DAILY PO Last administered on 02/05/17 08:48; Admin Dose 1 TAB; Start 01/26/17 at 09:00 Caspofungin/ Sodium Chloride (Cancidas/NS) 250 ml @ 250 mls/hr Q24H IVPB Last administered on 02/05/17 13:53; Admin Dose 250 MLS/HR; Start 01/27/17 at 13: 30 Lorazepam (Ativan) 0.5 mg Q6H PRN IV AGITATION/ANXIETY Last administered on 01:51; Admin Dose 0.5 MG; Start 01/28/17 at 14:00 Famotidine (Pepcid) 20 mg Q12 PO Last administered on 02/05/17 08:48; Admin Dose 20 MG; Start 01/28/17 at 21:00 Morphine Sulfate 1 mg 1 mg Q4 PRN IV pain Last administered on 01/30/17 03:02 ; Admin Dose 1 MG; Start 01/29/17 at 17:00 Doxycycline Hyclate 100 mg/ Dextrose 250 ml @ 250 mls/hr Q12 IVPB Last administered on 02/05/17 09:15; Admin Dose 250 MLS/HR; Start 01/31/17 at 21: 00 Meropenem/Sodium Chloride (Merrem 1 Gm/50 ml (Pmx)) 50 ml @ 100 mls/hr Q12 IVPB Last administered on 02/05/17 09:15; Admin Dose 100 MLS/HR; Start 02/01 at 21:00 REY NAIDU NP Feb 05, 2017 14:22
--- NOTE | 2017-02-05 15:49 | CONS ---
Date/Time of Note Date/Time of Note DATE: 02/05/17 TIME: 15:47 Consult Date/Type/Reason Admit Date/Time Jan 02, 2017 at 19:30 Initial Consult Date 01/07/17 Type of Consultation: Pulm Ordering Provider: BRAEDEN LUNSFORD MD Subjective No events noted overnight. Objective Vital Signs Date Time Temp Pulse Resp B/P Pulse Ox O2 Delivery O2 Flow Rate FiO2 02/05/17 08:02 97.8 93 18 119/74 94 02/03/17 19:12 Room Air Intake and Output 02/04/17 02/04/17 02/05/17 15:00 23:00 07:00 Intake Total 300 ml 960 ml 300 ml Output Total 900 ml Balance 300 ml 60 ml 300 ml Exam HEENT: Neck supple; no JVD; no LAD CVS: RRR, S1 and S2 CHEST: Clear ABD: Soft, NT, + BS; + ascites EXT: No c/c/e Results/Medications Result Diagram: 02/04/1752602/04/17526 Results 24 hrs Laboratory Tests Test 02/05/17 05:38 Lab Scanned Report BLOOD TRANSFUSION Medications Current Medications Ondansetron HCl (Zofran Inj) 4 mg Q6H PRN IV NAUSEA AND/OR VOMITING Last administered on 01/03/17 14:52; Admin Dose 4 MG; Start 01/02/17 at 23:00 IV Flush (NS 10 ml) 10 ml PRN PRN IV IV PROTOCOL; Start 01/05/17 at 18:30 Prednisolone (Prelone (Ped)) 40 mg DAILY PO Last administered on 02/05/17 08: 49; Admin Dose 40 MG; Start 01/12/17 at 09:00 Nystatin (Nystatin Susp) 5 ml QID PO Last administered on 02/05/17 08:50; Admin Dose 5 ML; Start 01/13/17 at 17:00 Glucose (Glutose) 15 gm Q15M PRN PO DECREASED GLUCOSE; Start 01/15/17 at 18:30 Glucose (Glutose) 22.5 gm Q15M PRN PO DECREASED GLUCOSE; Start 01/15/17 at 18: 30 Dextrose (D50w Syringe) 25 ml Q15M PRN IV DECREASED GLUCOSE; Start 01/15/17 at 18:30 Dextrose (D50w Syringe) 50 ml Q15M PRN IV DECREASED GLUCOSE; Start 01/15/17 at 18:30 Glucagon (Glucagen) 1 mg Q15M PRN IM DECREASED GLUCOSE; Start 01/15/17 at 18:30 Glucose (Glutose) 15 gm Q15M PRN BUCCAL DECREASED GLUCOSE; Start 01/15/17 at 18 :30 Diazepam (Valium) 10 mg BID PRN PO ANXIETY Last administered on 02/05/17 03: 11; Admin Dose 10 MG; Start 01/20/17 at 11:00 Lactulose (Enulose) 20 gm BID PO Last administered on 02/05/17 08:50; Admin Dose 20 GM; Start 01/20/17 at 21:00 Morphine Sulfate (morphine) 1 mg Q4H PRN IM PAIN; Start 01/23/17 at 10:00 Folic Acid (Folic Acid) 1 mg DAILY PO Last administered on 02/05/17 08:48; Admin Dose 1 MG; Start 01/26/17 at 09:00 Thiamine HCl (Vitamin B1) 100 mg DAILY PO Last administered on 02/05/17 08:48 ; Admin Dose 100 MG; Start 01/26/17 at 09:00 Multivit/Ca Carb/ B Cmplx/FA/Prenat 1 tab 1 tab DAILY PO Last administered on 02/05/17 08:48; Admin Dose 1 TAB; Start 01/26/17 at 09:00 Caspofungin/ Sodium Chloride (Cancidas/NS) 250 ml @ 250 mls/hr Q24H IVPB Last administered on 02/05/17 13:53; Admin Dose 250 MLS/HR; Start 01/27/17 at 13: 30 Lorazepam (Ativan) 0.5 mg Q6H PRN IV AGITATION/ANXIETY Last administered on 01:51; Admin Dose 0.5 MG; Start 01/28/17 at 14:00 Famotidine (Pepcid) 20 mg Q12 PO Last administered on 02/05/17 08:48; Admin Dose 20 MG; Start 01/28/17 at 21:00 Morphine Sulfate 1 mg 1 mg Q4 PRN IV pain Last administered on 01/30/17 03:02 ; Admin Dose 1 MG; Start 01/29/17 at 17:00 Doxycycline Hyclate 100 mg/ Dextrose 250 ml @ 250 mls/hr Q12 IVPB Last administered on 02/05/17 09:15; Admin Dose 250 MLS/HR; Start 01/31/17 at 21: 00 Meropenem/Sodium Chloride (Merrem 1 Gm/50 ml (Pmx)) 50 ml @ 100 mls/hr Q12 IVPB Last administered on 02/05/17 09:15; Admin Dose 100 MLS/HR; Start 02/01 at 21:00 Assessment/Plan Additional Assessment/Plan IMP: 1. Alcoholic Hepatitis 2. Waxing and waning mental status due to underlying hepatic encephalopathy. 3. SBP 4. Persistent hyperbilirubinemia. 5. Acute pancreatiti 6. Anemia 7. Thrombocytopenia. 8. Persistent severe leukocytosis. RECS: 1. Strict aspiration precautions 2. BD's prn 3. Abx as per ID 4. Continue Rx for hep encephalopathy AUGUST WARNER MD Feb 05, 2017 15:49
--- NOTE | 2017-02-05 22:21 | CONS ---
Date/Time of Note Date/Time of Note DATE: 02/05/17 TIME: 22:20 Assessment/Plan Assessment/Plan Chief Complaint/Hosp Course IMPRESSION: 1. Delirium tremens patient is still shaky unable to stand on his feet and continues to have slurred speech 2. Hepatic encephalopathy. Better patient is now communicating with slurred speech, still confused 3. Alcoholic liver disease. Patient is on prednisolone, total bilirubin is not coming down 4. Pancreatitis. Amylase has come down . Lipase is down 5. Leukocytosis. Persistent most probably related to alcoholic hepatitis and steroid, is slowly coming down 6. Renal insufficiency. Though the urine output is good. Renal function has improved a lot with good urine output. Creatinine is coming down. 7. Pedal edema resolved 8. Thrombocytopenia better 9. Ileus, small bowel follow-through was negative 10. Patient's gastroparesis might be related to uremia better 11. Hypernatremia 12. Spontaneous bacterial peritonitis. Acetic fluid was cloudy, WBC polymorphs where greater than 250 second paracentesis fluid was no more cloudy Plan Continue 1 more week of prednisolone and then will taper it off it seems patient is not responding to prednisolone. After 1 week we should make arrangement to transfer the patient to tertiary care center Continue antibiotic as per ID continue lactulose and rifaximen for hepatic encephalopathy Alcohol cessation counseled to patient's mother to ask son to stop drinking. Problems: Consultation Date/Type/Reason Admit Date/Time Jan 02, 2017 at 19:30 Initial Consult Date 01/07/17 Type of Consultation: GI Referring Provider: BRAEDEN LUNSFORD MD 24 HR Interval Summary Free Text/Dictation calmer today, no n/v Exam/Review of Systems Vital Signs Vitals Vital Signs Date Time Temp Pulse Resp B/P Pulse Ox O2 Delivery O2 Flow Rate FiO2 02/05/17 20:00 96.6 69 18 116/63 100 02/05/17 12:00 Room Air Intake and Output 02/04/17 02/04/17 02/05/17 15:00 23:00 07:00 Intake Total 300 ml 960 ml 300 ml Output Total 900 ml Balance 300 ml 60 ml 300 ml Exam Head: atraumatic, normocephalic Eyes: EOMI, nl conjunctiva, nl lids ENMT: nl external ears & nose, nl lips & teeth, nl nasal mucosa & septum Neck: non-tender, supple Respiratory: clear to auscultation, normal air movement Cardiovascular: nl pulses, regular rate and rhythm Gastrointestinal: bowel sounds, non-tender, soft Results Result Diagram: 02/04/1752602/04/17526 Results 24 hrs Laboratory Tests Test 02/05/17 05:38 Lab Scanned Report BLOOD TRANSFUSION Medications Medications Current Medications Ondansetron HCl (Zofran Inj) 4 mg Q6H PRN IV NAUSEA AND/OR VOMITING Last administered on 01/03/17 14:52; Admin Dose 4 MG; Start 01/02/17 at 23:00 IV Flush (NS 10 ml) 10 ml PRN PRN IV IV PROTOCOL; Start 01/05/17 at 18:30 Prednisolone (Prelone (Ped)) 40 mg DAILY PO Last administered on 02/05/17 08: 49; Admin Dose 40 MG; Start 01/12/17 at 09:00 Nystatin (Nystatin Susp) 5 ml QID PO Last administered on 02/05/17 08:50; Admin Dose 5 ML; Start 01/13/17 at 17:00 Glucose (Glutose) 15 gm Q15M PRN PO DECREASED GLUCOSE; Start 01/15/17 at 18:30 Glucose (Glutose) 22.5 gm Q15M PRN PO DECREASED GLUCOSE; Start 01/15/17 at 18: 30 Dextrose (D50w Syringe) 25 ml Q15M PRN IV DECREASED GLUCOSE; Start 01/15/17 at 18:30 Dextrose (D50w Syringe) 50 ml Q15M PRN IV DECREASED GLUCOSE; Start 01/15/17 at 18:30 Glucagon (Glucagen) 1 mg Q15M PRN IM DECREASED GLUCOSE; Start 01/15/17 at 18:30 Glucose (Glutose) 15 gm Q15M PRN BUCCAL DECREASED GLUCOSE; Start 01/15/17 at 18 :30 Diazepam (Valium) 10 mg BID PRN PO ANXIETY Last administered on 02/05/17 03: 11; Admin Dose 10 MG; Start 01/20/17 at 11:00 Lactulose (Enulose) 20 gm BID PO Last administered on 02/05/17 08:50; Admin Dose 20 GM; Start 01/20/17 at 21:00 Morphine Sulfate (morphine) 1 mg Q4H PRN IM PAIN; Start 01/23/17 at 10:00 Folic Acid (Folic Acid) 1 mg DAILY PO Last administered on 02/05/17 08:48; Admin Dose 1 MG; Start 01/26/17 at 09:00 Thiamine HCl (Vitamin B1) 100 mg DAILY PO Last administered on 02/05/17 08:48 ; Admin Dose 100 MG; Start 01/26/17 at 09:00 Multivit/Ca Carb/ B Cmplx/FA/Prenat 1 tab 1 tab DAILY PO Last administered on 02/05/17 08:48; Admin Dose 1 TAB; Start 01/26/17 at 09:00 Caspofungin/ Sodium Chloride (Cancidas/NS) 250 ml @ 250 mls/hr Q24H IVPB Last administered on 02/05/17 13:53; Admin Dose 250 MLS/HR; Start 01/27/17 at 13: 30 Lorazepam (Ativan) 0.5 mg Q6H PRN IV AGITATION/ANXIETY Last administered on 01:51; Admin Dose 0.5 MG; Start 01/28/17 at 14:00 Famotidine (Pepcid) 20 mg Q12 PO Last administered on 02/05/17 08:48; Admin Dose 20 MG; Start 01/28/17 at 21:00 Morphine Sulfate 1 mg 1 mg Q4 PRN IV pain Last administered on 01/30/17 03:02 ; Admin Dose 1 MG; Start 01/29/17 at 17:00 Doxycycline Hyclate 100 mg/ Dextrose 250 ml @ 250 mls/hr Q12 IVPB Last administered on 02/05/17 09:15; Admin Dose 250 MLS/HR; Start 01/31/17 at 21: 00 Meropenem/Sodium Chloride (Merrem 1 Gm/50 ml (Pmx)) 50 ml @ 100 mls/hr Q12 IVPB Last administered on 02/05/17 09:15; Admin Dose 100 MLS/HR; Start 02/01 at 21:00 GLORIA FATIMA MD Feb 05, 2017 22:21
--- NOTE | 2017-02-05 22:46 | PN ---
Date/Time of Note Date/Time of Note DATE: 02/05/17 TIME: 22:46 Assessment/Plan Lines/Catheters IV [facility] (from [facility]): PICC Line Assessment/Plan Chief Complaint/Hosp Course 1. Paralytic ileus 2nd acute processes. SBFT negative. Improved; +bowel function -Monitor 2. Acute on chronic alcoholic pancreatitis with peripancreatic fluid -antimicrobials -Supportive measures -Judicious fluid management -Trend labs -Encourage cessation 3. Acute GI bleed from gastritis and esophageal varices secondary to alcoholism. Stable -Transfuse as needed -Supportive measures: ppi -Correct coagulopathy and platelet dysfunction 4. Anemia secondary to above: h/h stable -As above 5. Leukocytosis, multifactorial with SIRS and steroid therapy, ? infectious( pl. effusions, atelectasis vs. pna +/- pancreatitis; sbp -Close monitoring -follow ascitic fluid studies 6. Alcoholic hepatitis with hepatosplenomegaly, ascites; elevated LFT's ( improving); s/p paracentesis -Medical and GI optimization 7. Chronic alcohol abuse with Delirium Tremens; no tremors -Encourage cessation -Sedation/intubation 8. Subcapsular liver collection possible hematoma versus other -Monitor 9. Electrolyte imbalance -Correct with replacements and fluid management 10. Alcohol withdrawal with tachypnea, tachycardia and delirium tremens; improved -supportive 11. NICOLAS: -judicious fluids -avoid nephrotoxic meds 12. Atelectasis vs. pna -IS -increase activity-OOB as tolerated; PT Thank you. Patient seen and examined in collaboration with Dr. Bob Tristan. Problems: Subjective 24 Hr Interval Summary Restraints dc'd; mother at bedside. Leukocytosis persistent. No fevers, chills, sob, congested cough, cp, palpitations, bateman, dizziness, n/v/d/dysuria. Exam/Review of Systems Vital Signs Vitals Vital Signs Date Time Temp Pulse Resp B/P Pulse Ox O2 Delivery O2 Flow Rate FiO2 02/12/17 00:00 80 02/11/17 23:55 20 100 40 02/11/17 22:05 97/54 Mechanical Ventilator 02/11/17 20:00 98.7 Intake and Output 02/11/17 02/11/17 02/12/17 15:00 23:00 07:00 Intake Total 1166.86 ml 400.0 ml Output Total 1035 ml 12 ml Balance 131.86 ml 388.0 ml Exam Free Text/Dictation Constitutional: Confused Not oriented. Psych: No nl mood/affect Head: atraumatic, normocephalic, No hematomas, No lacerations Eyes: EOMI, PERRL, icteric ENMT: nl external ears & nose, nl lips & teeth. Mucosa pink and dry. icteric Neck: non-tender, supple, No jvd Respiratory: No congested cough, No labored breathing Cardiovascular: No edema, No regular rate and rhythm Gastrointestinal: soft, min-tender, non distended. No rebound or guarding Musculoskeletal: nl extremities to inspection, No joint tenderness; BLE edema Extremities: normal pulses, No calf tenderness, No cyanosis Neurological: Responsive Skin: rash or lesions (Jaundice), No diaphoresis, No nl turgor : luis output (improved; increased amount) Lymph: nl lymph nodes, nontender Results Result Diagram: 02/11/17 1759 02/11/17 1759 ELIO GIBBONS NP Feb 05, 2017 22:46
[2017-02-06] MEDS: LORAZEPAM 2 MG INJ IV PRN (01:22)
[2017-02-06 02:00] VITALS: BP 121/59
[2017-02-06 07:36] VITALS: BP 110/57; RESP 20
[2017-02-06] MEDS: predniSOLONE (3 MG/ML PO SYG) PO SCH (09:04)
[2017-02-06] MEDS: FOLIC ACID 1 MG TAB PO SCH (09:04)
[2017-02-06] MEDS: LACTULOSE 30ML CUP PO SCH ×2 (09:04→20:42)
[2017-02-06] MEDS: MULTIVIT/CA CARB/B CMPLX/FA TAB PO SCH (09:04)
[2017-02-06] MEDS: FAMOTIDINE 20 MG TAB PO SCH ×2 (09:04→20:42)
[2017-02-06] MEDS: THIAMINE 100 MG TAB PO SCH (09:04)
[2017-02-06] MEDS: NYSTATIN SUSP 5 ML CUP PO SCH ×4 (09:04→20:42)
[2017-02-06] MEDS: BALSAM PERU/CASTOR OIL 60 GM TUBE TOP SCH ×2 (09:05→20:43)
[2017-02-06] MEDS: DOXYCYCLINE 100 MG in DEXTROSE 5% 250 ML IVPB SCH ×2 (09:05→21:22)
[2017-02-06] MEDS: MEROPENEM 1 GM/50ML(PMX) 50 ML IVPB SCH ×2 (10:37→20:42)
[2017-02-06] MEDS: CASPOFUNGIN 35 MG in SOD CHLORIDE 0.9% 250 ML IVPB SCH (12:02)
--- NOTE | 2017-02-06 12:14 | PN ---
Date/Time of Note Date/Time of Note DATE: 02/06/17 TIME: 12:10 Assessment/Plan VTE Prophylaxis VTE Prophylaxis Intervention: SCD's VTE Contraindication Reason: bleeding Lines/Catheters IV Catheter Type (from Nrsg): PICC Line Central line still needed: Yes Urinary Cath still in place: Yes Reason Cath still needed: urinary retention Assessment/Plan Chief Complaint/Hosp Course 36 y/o with # NICOLAS likely Oliguric ATN vs HRS improved # Acute on chronic liver failure with alcholic hepatitis likely Etoh abuse with elevated INR, Hyperbilirubenemia, low platelets, elevated bilirubin # Hepatic encephalopathy improved # ETOH withdrawal on Ativan/librium tapered off # ETOH pancreatitis with Lipase 7690> trending down to 1999> trended down siginificantly # Non Gap Acidosis 2 to renal failure/diarrhoea # Leukocytosis now likely to steroids # Hypoxic Respiratory failure s/p Intubation now extubated on 01/15 # Thrombocytopenia # Anemia likely hemodilutional : no evidence of bleeding s/p EGD with gastritis and gastroparesis on PPI and Reglan # s/P EGD with gastritis and gastroparesis on Protonix and Reglan # Ileus s/p Small bowel follow thru which is negative, f/u Surgery # Ascites s/p paracentesis with +SBP s/p repeat paracentesis on 02/02 # Hypernatremia resolved after iv switched in D5W now hypernatremic again # Hypokalemia Plan - Aspiration precautions - iv abx per I.D on doxycycline, cancidas and Meropenam, will talk to I.D to taper off - Abx in D5W - c/w prednisolone 40 per GI , will taper it once one month is completed - PT - Pt still requires active Hospital treatment very weak, debilitated, on 3 abx , D5 W , bilirubin still 26 actively followed by consultants - If LFT does not improve after steroid treatment for [address] Mercer, pt will likley need transfer to Liver transplant center, spoke to Dr Mercer, will reconsult transplant centers for transplant Problems: Subjective 24 Hr Interval Summary Free Text/Dictation Pt very weak, tired, unable to get with PT Pt tremolous Exam/Review of Systems Vital Signs Vitals Vital Signs Date Time Temp Pulse Resp B/P Pulse Ox O2 Delivery O2 Flow Rate FiO2 02/06/17 07:36 98.4 71 20 110/57 100 02/05/17 12:00 Room Air Intake and Output 02/05/17 02/05/17 02/06/17 15:00 23:00 07:00 Intake Total 900 ml 1190 ml 500 ml Output Total 300 ml 600 ml Balance 600 ml 1190 ml -100 ml Exam GNERAL: Well-developed, ill-appearing,jaundice,male who is in no distress.awake ,alert, Tremolous HEENT: Head atraumatic, normocephalic. Sclerae anicteric. Buccal mucosa dry. NECK: Supple. CHEST: Rise symmetrical. Breath sounds diminished to bases. HEART: S1, S2. ABDOMEN: Distended, soft. Bowel tones present.ascites+ EXTREMITIES: With trace edema. [place] in place Results Result Diagram: 02/04/1752602/04/17526 Medications Medications Current Medications Ondansetron HCl (Zofran Inj) 4 mg Q6H PRN IV NAUSEA AND/OR VOMITING Last administered on 01/03/17 14:52; Admin Dose 4 MG; Start 01/02/17 at 23:00 IV Flush (NS 10 ml) 10 ml PRN PRN IV IV PROTOCOL; Start 01/05/17 at 18:30 Prednisolone (Prelone (Ped)) 40 mg DAILY PO Last administered on 02/06/17 09: 04; Admin Dose 40 MG; Start 01/12/17 at 09:00 Nystatin (Nystatin Susp) 5 ml QID PO Last administered on 02/06/17 09:04; Admin Dose 5 ML; Start 01/13/17 at 17:00 Glucose (Glutose) 15 gm Q15M PRN PO DECREASED GLUCOSE; Start 01/15/17 at 18:30 Glucose (Glutose) 22.5 gm Q15M PRN PO DECREASED GLUCOSE; Start 01/15/17 at 18: 30 Dextrose (D50w Syringe) 25 ml Q15M PRN IV DECREASED GLUCOSE; Start 01/15/17 at 18:30 Dextrose (D50w Syringe) 50 ml Q15M PRN IV DECREASED GLUCOSE; Start 01/15/17 at 18:30 Glucagon (Glucagen) 1 mg Q15M PRN IM DECREASED GLUCOSE; Start 01/15/17 at 18:30 Glucose (Glutose) 15 gm Q15M PRN BUCCAL DECREASED GLUCOSE; Start 01/15/17 at 18 :30 Diazepam (Valium) 10 mg BID PRN PO ANXIETY Last administered on 02/05/17 03: 11; Admin Dose 10 MG; Start 01/20/17 at 11:00 Lactulose (Enulose) 20 gm BID PO Last administered on 02/06/17 09:04; Admin Dose 20 GM; Start 01/20/17 at 21:00 Morphine Sulfate (morphine) 1 mg Q4H PRN IM PAIN; Start 01/23/17 at 10:00 Folic Acid (Folic Acid) 1 mg DAILY PO Last administered on 02/06/17 09:04; Admin Dose 1 MG; Start 01/26/17 at 09:00 Thiamine HCl (Vitamin B1) 100 mg DAILY PO Last administered on 02/06/17 09:04 ; Admin Dose 100 MG; Start 01/26/17 at 09:00 Multivit/Ca Carb/ B Cmplx/FA/Prenat 1 tab 1 tab DAILY PO Last administered on 02/06/17 09:04; Admin Dose 1 TAB; Start 01/26/17 at 09:00 Caspofungin/ Sodium Chloride (Cancidas/NS) 250 ml @ 250 mls/hr Q24H IVPB Last administered on 02/06/17 12:02; Admin Dose 250 MLS/HR; Start 01/27/17 at 13: 30 Lorazepam (Ativan) 0.5 mg Q6H PRN IV AGITATION/ANXIETY Last administered on 01:22; Admin Dose 0.5 MG; Start 01/28/17 at 14:00 Famotidine (Pepcid) 20 mg Q12 PO Last administered on 02/06/17 09:04; Admin Dose 20 MG; Start 01/28/17 at 21:00 Morphine Sulfate 1 mg 1 mg Q4 PRN IV pain Last administered on 01/30/17 03:02 ; Admin Dose 1 MG; Start 01/29/17 at 17:00 Doxycycline Hyclate 100 mg/ Dextrose 250 ml @ 250 mls/hr Q12 IVPB Last administered on 02/06/17 09:05; Admin Dose 250 MLS/HR; Start 01/31/17 at 21: 00 Meropenem/Sodium Chloride (Merrem 1 Gm/50 ml (Pmx)) 50 ml @ 100 mls/hr Q12 IVPB Last administered on 02/06/17t 10:37; Admin Dose 100 MLS/HR; Start 02/01 at 21:00 BRAEDEN LUNSFORD MD Feb 06, 2017 12:14
[2017-02-06 13:31] VITALS: BP 125/61; RESP 18
--- NOTE | 2017-02-06 14:30 | CONS ---
Date/Time of Note Date/Time of Note DATE: 02/06/17 TIME: 14:19 Consultation Date/Type/Reason Admit Date/Time Jan 02, 2017 at 19:30 Initial Consult Date SUBJECTIVE: NO acute events overnight. No fevers. Jaundice. He is still confused and weak. Comfortably resting in bed. Recent paracentesis yielding 3.0 L. VITAL SIGNS: 125/61 P:84 R: 18 SO2: 96% T: 98.8 LABS: reviewed. none for today. CXR 02/04=neg. PICC line in place. ANTIMICROBIALS: Meropenem, Doxy, Cancidas. PHYSICAL EXAMINATION: GENERAL: Well-developed, ill-appearing, jaundice, weak,male who is in no distress. HEENT: Head atraumatic, normocephalic. Sclerae anicteric. Buccal mucosa dry. NECK: Supple. CHEST: Rise symmetrical. Breath sounds diminished to bases. HEART: S1, S2. ABDOMEN: Distended, soft. Bowel tones present. EXTREMITIES: With trace edema. ASSESSMENT: 1. Persistent leukocytosis likely to steroids. 2. Acute pancreatitis. 3. Decompensated liver cirrhosis. 4. Hepatic encephalopathy. 5. Acute renal failure. 6. Recurrent ascites. S/P paracentesis.02/04 7. Status post septic shock. 8. S/P respiratory failure. Extubated 01/15 PLAN: Patient is stable. Continue current antbx to complete 10 days treatment. GI recommendations. Aspiration precautions. Type of Consultation: ID Referring Provider: BRAEDEN LUNSFORD MD Exam/Review of Systems Vital Signs Vitals Vital Signs Date Time Temp Pulse Resp B/P Pulse Ox O2 Delivery O2 Flow Rate FiO2 02/06/17 13:31 98.8 84 18 125/61 96 02/05/17 12:00 Room Air Intake and Output 02/05/17 02/05/17 02/06/17 15:00 23:00 07:00 Intake Total 900 ml 1190 ml 500 ml Output Total 300 ml 600 ml Balance 600 ml 1190 ml -100 ml Results Result Diagram: 02/04/17 0527 02/04/17 0527 Medications Medications Current Medications Ondansetron HCl (Zofran Inj) 4 mg Q6H PRN IV NAUSEA AND/OR VOMITING Last administered on 01/03/17t 14:52; Admin Dose 4 MG; Start 01/02/17 at 23:00 IV Flush (NS 10 ml) 10 ml PRN PRN IV IV PROTOCOL; Start 01/05/17 at 18:30 Prednisolone (Prelone (Ped)) 40 mg DAILY PO Last administered on 02/06/17 09: 04; Admin Dose 40 MG; Start 01/12/17 at 09:00 Nystatin (Nystatin Susp) 5 ml QID PO Last administered on 02/06/17 13:00; Admin Dose 5 ML; Start 01/13/17 at 17:00 Glucose (Glutose) 15 gm Q15M PRN PO DECREASED GLUCOSE; Start 01/15/17 at 18:30 Glucose (Glutose) 22.5 gm Q15M PRN PO DECREASED GLUCOSE; Start 01/15/17 at 18: 30 Dextrose (D50w Syringe) 25 ml Q15M PRN IV DECREASED GLUCOSE; Start 01/15/17 at 18:30 Dextrose (D50w Syringe) 50 ml Q15M PRN IV DECREASED GLUCOSE; Start 01/15/17 at 18:30 Glucagon (Glucagen) 1 mg Q15M PRN IM DECREASED GLUCOSE; Start 01/15/17 at 18:30 Glucose (Glutose) 15 gm Q15M PRN BUCCAL DECREASED GLUCOSE; Start 01/15/17 at 18 :30 Diazepam (Valium) 10 mg BID PRN PO ANXIETY Last administered on 02/05/17 03: 11; Admin Dose 10 MG; Start 01/20/17 at 11:00 Lactulose (Enulose) 20 gm BID PO Last administered on 02/06/17 09:04; Admin Dose 20 GM; Start 01/20/17 at 21:00 Morphine Sulfate (morphine) 1 mg Q4H PRN IM PAIN; Start 01/23/17 at 10:00 Folic Acid (Folic Acid) 1 mg DAILY PO Last administered on 02/06/17 09:04; Admin Dose 1 MG; Start 01/26/17 at 09:00 Thiamine HCl (Vitamin B1) 100 mg DAILY PO Last administered on 02/06/17 09:04 ; Admin Dose 100 MG; Start 01/26/17 at 09:00 Multivit/Ca Carb/ B Cmplx/FA/Prenat 1 tab 1 tab DAILY PO Last administered on 02/06/17 09:04; Admin Dose 1 TAB; Start 01/26/17 at 09:00 Caspofungin/ Sodium Chloride (Cancidas/NS) 250 ml @ 250 mls/hr Q24H IVPB Last administered on 02/06/17 12:02; Admin Dose 250 MLS/HR; Start 01/27/17 at 13: 30 Lorazepam (Ativan) 0.5 mg Q6H PRN IV AGITATION/ANXIETY Last administered on 01:22; Admin Dose 0.5 MG; Start 01/28/17 at 14:00 Famotidine (Pepcid) 20 mg Q12 PO Last administered on 02/06/17 09:04; Admin Dose 20 MG; Start 01/28/17 at 21:00 Morphine Sulfate 1 mg 1 mg Q4 PRN IV pain Last administered on 01/30/17 03:02 ; Admin Dose 1 MG; Start 01/29/17 at 17:00 Doxycycline Hyclate 100 mg/ Dextrose 250 ml @ 250 mls/hr Q12 IVPB Last administered on 02/06/17 09:05; Admin Dose 250 MLS/HR; Start 01/31/17 at 21: 00 Meropenem/Sodium Chloride (Merrem 1 Gm/50 ml (Pmx)) 50 ml @ 100 mls/hr Q12 IVPB Last administered on 02/06/17 10:37; Admin Dose 100 MLS/HR; Start 02/01 at 21:00 JUAREZ JORDAN Feb 06, 2017 14:30
--- NOTE | 2017-02-06 14:37 | PN ---
Date/Time of Note Date/Time of Note DATE: 02/06/17 TIME: 14:30 Assessment/Plan Lines/Catheters IV Catheter Type (from [facility]): PICC Line Minaya in Place (from [facility]): Yes Assessment/Plan Chief Complaint/Hosp Course 1. Paralytic ileus 2nd acute processes. SBFT negative. resolved; +bowel function -Monitor 2. Acute on chronic alcoholic pancreatitis with peripancreatic fluid: CT: worsened pancreatitis -antimicrobials -Supportive measures -Judicious fluid management -Trend labs -Encourage cessation 3. Acute GI bleed from gastritis and esophageal varices secondary to alcoholism. Stable -Transfuse as needed -Supportive measures: ppi -Correct coagulopathy and platelet dysfunction 4. Anemia secondary to above: h/h stable -As above 5. Leukocytosis, multifactorial with SIRS and steroid therapy, doubt infectious (no bandemia, no fevers, chills, tachycardia); increasing -Close monitoring -follow ascitic fluid studies 6. Alcoholic hepatitis with hepatosplenomegaly, ascites; elevated LFT's ( improving); s/p paracentesis -Medical and GI optimization 7. Chronic alcohol abuse with Delirium Tremens; no tremors -Encourage cessation -Sedation/intubation 8. Subcapsular liver collection possible hematoma versus other -Monitor 9. Electrolyte imbalance -Correct with replacements and fluid management 10. Alcohol withdrawal with tachypnea, tachycardia and delirium tremens; improved -supportive 11. NICOLAS: improving -judicious fluids -avoid nephrotoxic meds 12. Atelectasis vs. pna -IS -increase activity-OOB as tolerated; PT Thank you. Patient seen and examined in collaboration with Dr. Bob Tristan. Problems: Subjective 24 Hr Interval Summary Continues to be confused. Sleepy today. Worsened leukocytosis and lft's. No fevers, chills, sob, congested cough, cp, palpitations, bateman, dizziness, n/v/d/ dysuria. Exam/Review of Systems Vital Signs Vitals Vital Signs Date Time Temp Pulse Resp B/P Pulse Ox O2 Delivery O2 Flow Rate FiO2 02/06/17 13:31 98.8 84 18 125/61 96 02/05/17 12:00 Room Air Intake and Output 02/05/17 02/05/17 02/06/17 15:00 23:00 07:00 Intake Total 900 ml 1190 ml 500 ml Output Total 300 ml 600 ml Balance 600 ml 1190 ml -100 ml Exam Free Text/Dictation Constitutional: Confused Not oriented. more alert Psych: No nl mood/affect Head: atraumatic, normocephalic, No hematomas, No lacerations Eyes: EOMI, PERRL, icteric ENMT: nl external ears & nose, nl lips & teeth. Mucosa pink and dry. icteric Neck: non-tender, supple, No jvd Respiratory: No congested cough, No labored breathing Cardiovascular: No edema, No regular rate and rhythm Gastrointestinal: soft, non tender, min distended. No rebound or guarding Musculoskeletal: nl extremities to inspection, No joint tenderness; BLE edema Extremities: normal pulses, No calf tenderness, No cyanosis Neurological: Responsive Skin: rash or lesions (Jaundice), No diaphoresis, No nl turgor : minaya with luis output (improved; increased amount) Lymph: nl lymph nodes, nontender Results Result Diagram: 02/04/17 0527 02/04/17 0527 ELIO GIBBONS NP Feb 06, 2017 14:37
--- NOTE | 2017-02-06 19:52 | CONS ---
Date/Time of Note Date/Time of Note DATE: 02/06/17 TIME: 19:51 Assessment/Plan Assessment/Plan Additional Assessment/Plan Chief Complaint/Hosp Course IMPRESSION: 1. Delirium tremens patient is still shaky unable to stand on his feet and continues to have slurred speech 2. Hepatic encephalopathy. Better patient is now communicating with slurred speech, still confused 3. Alcoholic liver disease. Patient is on prednisolone, total bilirubin is not coming down 4. Pancreatitis. Amylase has come down . Lipase is down 5. Leukocytosis. Persistent most probably related to alcoholic hepatitis and steroid, is slowly coming down 6. Renal insufficiency. Though the urine output is good. Renal function has improved a lot with good urine output. Creatinine is coming down. 7. Pedal edema resolved 8. Thrombocytopenia better 9. Ileus, small bowel follow-through was negative 10. Patient's gastroparesis might be related to uremia better 11. Hypernatremia 12. Spontaneous bacterial peritonitis. Acetic fluid was cloudy, WBC polymorphs where greater than 250 second paracentesis fluid was no more cloudy Plan Continue 1 more week of prednisolone and then will taper it off it seems patient is not responding to prednisolone. After 1 week we should make arrangement to transfer the patient to tertiary care center Continue antibiotic as per ID continue lactulose and rifaximen for hepatic encephalopathy Alcohol cessation counseled to patient's mother to ask son to stop drinking. Problems: Consultation Date/Type/Reason Admit Date/Time Jan 02, 2017 at 19:30 Type of Consultation: ID Referring Provider: BRAEDEN LUNSFORD MD 24 HR Interval Summary Constitutional: no complaints Exam/Review of Systems Vital Signs Vitals Vital Signs Date Time Temp Pulse Resp B/P Pulse Ox O2 Delivery O2 Flow Rate FiO2 02/06/17 13:31 98.8 84 18 125/61 96 02/05/17 12:00 Room Air Intake and Output 02/05/17 02/05/17 02/06/17 15:00 23:00 07:00 Intake Total 900 ml 1190 ml 500 ml Output Total 300 ml 600 ml Balance 600 ml 1190 ml -100 ml Exam Constitutional: alert, oriented, well developed Psych: nl mood/affect, no complaints Head: atraumatic, normocephalic Eyes: EOMI, PERRL, nl conjunctiva, nl lids, nl sclera ENMT: nl external ears & nose, nl lips & teeth, nl nasal mucosa & septum Neck: non-tender, supple Respiratory: clear to auscultation, normal air movement Cardiovascular: nl pulses, regular rate and rhythm Gastrointestinal: nl liver, spleen, non-tender, soft Musculoskeletal: nl extremities to inspection, nl gait and stance Extremities: normal pulses Neurological: [employer]ANS[employer] II-XII intact, nl mental status, nl speech, nl strength Skin: nl turgor, No rash or lesions Lymph: nl lymph nodes Results Result Diagram: 02/04/1752602/04/17526 Medications Medications Current Medications Ondansetron HCl (Zofran Inj) 4 mg Q6H PRN IV NAUSEA AND/OR VOMITING Last administered on 01/03/17 14:52; Admin Dose 4 MG; Start 01/02/17 at 23:00 IV Flush (NS 10 ml) 10 ml PRN PRN IV IV PROTOCOL; Start 01/05/17 at 18:30 Prednisolone (Prelone (Ped)) 40 mg DAILY PO Last administered on 02/06/17 09: 04; Admin Dose 40 MG; Start 01/12/17 at 09:00 Nystatin (Nystatin Susp) 5 ml QID PO Last administered on 02/06/17 16:57; Admin Dose 5 ML; Start 01/13/17 at 17:00 Glucose (Glutose) 15 gm Q15M PRN PO DECREASED GLUCOSE; Start 01/15/17 at 18:30 Glucose (Glutose) 22.5 gm Q15M PRN PO DECREASED GLUCOSE; Start 01/15/17 at 18: 30 Dextrose (D50w Syringe) 25 ml Q15M PRN IV DECREASED GLUCOSE; Start 01/15/17 at 18:30 Dextrose (D50w Syringe) 50 ml Q15M PRN IV DECREASED GLUCOSE; Start 01/15/17 at 18:30 Glucagon (Glucagen) 1 mg Q15M PRN IM DECREASED GLUCOSE; Start 01/15/17 at 18:30 Glucose (Glutose) 15 gm Q15M PRN BUCCAL DECREASED GLUCOSE; Start 01/15/17 at 18 :30 Diazepam (Valium) 10 mg BID PRN PO ANXIETY Last administered on 02/05/17 03: 11; Admin Dose 10 MG; Start 01/20/17 at 11:00 Lactulose (Enulose) 20 gm BID PO Last administered on 02/06/17 09:04; Admin Dose 20 GM; Start 01/20/17 at 21:00 Morphine Sulfate (morphine) 1 mg Q4H PRN IM PAIN; Start 01/23/17 at 10:00 Folic Acid (Folic Acid) 1 mg DAILY PO Last administered on 02/06/17 09:04; Admin Dose 1 MG; Start 01/26/17 at 09:00 Thiamine HCl (Vitamin B1) 100 mg DAILY PO Last administered on 02/06/17 09:04 ; Admin Dose 100 MG; Start 01/26/17 at 09:00 Multivit/Ca Carb/ B Cmplx/FA/Prenat 1 tab 1 tab DAILY PO Last administered on 02/06/17 09:04; Admin Dose 1 TAB; Start 01/26/17 at 09:00 Caspofungin/ Sodium Chloride (Cancidas/NS) 250 ml @ 250 mls/hr Q24H IVPB Last administered on 02/06/17 12:02; Admin Dose 250 MLS/HR; Start 01/27/17 at 13: 30 Lorazepam (Ativan) 0.5 mg Q6H PRN IV AGITATION/ANXIETY Last administered on 01:22; Admin Dose 0.5 MG; Start 01/28/17 at 14:00 Famotidine (Pepcid) 20 mg Q12 PO Last administered on 02/06/17 09:04; Admin Dose 20 MG; Start 01/28/17 at 21:00 Morphine Sulfate 1 mg 1 mg Q4 PRN IV pain Last administered on 01/30/17 03:02 ; Admin Dose 1 MG; Start 01/29/17 at 17:00 Doxycycline Hyclate 100 mg/ Dextrose 250 ml @ 250 mls/hr Q12 IVPB Last administered on 02/06/17 09:05; Admin Dose 250 MLS/HR; Start 01/31/17 at 21: 00 Meropenem/Sodium Chloride (Merrem 1 Gm/50 ml (Pmx)) 50 ml @ 100 mls/hr Q12 IVPB Last administered on 02/06/17 10:37; Admin Dose 100 MLS/HR; Start 02/01 at 21:00 LAURA CORDERO MD Feb 06, 2017 19:52
[2017-02-06 20:58] VITALS: BP 128/76; RESP 20
[2017-02-07 02:40] VITALS: BP 118/65; RESP 20
[2017-02-07 06:16] LABS: ABNORMAL IP MESSAGE 1; HEMATOCRIT 24.7 % (42.0-52.0); HEMOGLOBIN 8.2 g/dl (14.0-18.0); MEAN CORPUSCULAR HEMOGLOBIN 35.8 pg (29.0-33.0); MEAN CORPUSCULAR HGB CONC 33.2 g/dl (32.0-37.0); MEAN CORPUSCULAR VOLUME 107.9 fl (82.0-101.0); POSITIVE DIFF @See below; RED BLOOD COUNT 2.29 10^6/ul (4.70-6.10); RED CELL DISTRIBUTION WIDTH 23.1 % (11.5-14.5); WHITE BLOOD COUNT 49.4 10^3/ul (4.8-10.8)
[2017-02-07 06:47] LABS: PLATELET COUNT 40 10^3/UL (140-415)
[2017-02-07 06:49] LABS: ALBUMIN/GLOBULIN RATIO 0.6; BILIRUBIN,INDIRECT 2.4 mg/dl (0-1.1); CALCIUM 8.7 mg/dl (8.4-10.2); CREATININE 1.65 mg/dl (0.61-1.24); POTASSIUM 3.5 mmol/L (3.5-5.1); TOTAL PROTEIN 5.3 g/dl (6.1-8.1)
[2017-02-07 06:55] LABS: BILIRUBIN,DIRECT 26.4 mg/dl (0.00-0.20); BILIRUBIN,TOTAL 28.8 mg/dl (0.2-1.3)
[2017-02-07 06:59] LABS: MAGNESIUM 2.2 mg/dl (1.7-2.5); PHOSPHORUS 6.6 mg/dl (2.5-4.9)
[2017-02-07 07:49] VITALS: BP 118/68; RESP 20
[2017-02-07] MEDS: MEROPENEM 1 GM/50ML(PMX) 50 ML IVPB SCH ×2 (09:00→09:15)
[2017-02-07] MEDS: MULTIVIT/CA CARB/B CMPLX/FA TAB PO SCH (09:14)
[2017-02-07] MEDS: LACTULOSE 30ML CUP PO SCH (09:14)
[2017-02-07] MEDS: NYSTATIN SUSP 5 ML CUP PO SCH ×4 (09:14→22:18)
[2017-02-07] MEDS: FAMOTIDINE 20 MG TAB PO SCH ×2 (09:14→22:00)
[2017-02-07] MEDS: FOLIC ACID 1 MG TAB PO SCH (09:14)
[2017-02-07] MEDS: predniSOLONE (3 MG/ML PO SYG) PO SCH (09:14)
[2017-02-07] MEDS: THIAMINE 100 MG TAB PO SCH (09:14)
[2017-02-07] MEDS: DOXYCYCLINE 100 MG in DEXTROSE 5% 250 ML IVPB SCH (09:15)
[2017-02-07] MEDS: BALSAM PERU/CASTOR OIL 60 GM TUBE TOP SCH ×2 (09:16→22:00)
[2017-02-07] MEDS: DEXTROSE 5% 1,000 ML IV SCH (09:35)
--- NOTE | 2017-02-07 10:54 | PN ---
Date/Time of Note Date/Time of Note DATE: 02/07/17 TIME: 10:51 Assessment/Plan VTE Prophylaxis VTE Prophylaxis Intervention: contraindicated VTE Contraindication Reason: bleeding Lines/Catheters IV Catheter Type (from Nrsg): PICC Line Central line still needed: Yes Urinary Cath still in place: Yes Reason Cath still needed: urinary retention Assessment/Plan Chief Complaint/Hosp Course 36 y/o with # NICOLAS likely Oliguric ATN vs HRS improved # Acute on chronic liver failure with alcholic hepatitis likely Etoh abuse with elevated INR, Hyperbilirubenemia, low platelets, elevated bilirubin # Hepatic encephalopathy improved # ETOH withdrawal on Ativan/librium tapered off # ETOH pancreatitis with Lipase 7690> trending down to 1999> trended down siginificantly # Non Gap Acidosis 2 to renal failure/diarrhoea # Leukocytosis now likely to steroids # Hypoxic Respiratory failure s/p Intubation now extubated on 01/15 # Thrombocytopenia # Anemia likely hemodilutional : no evidence of bleeding s/p EGD with gastritis and gastroparesis on PPI and Reglan # s/P EGD with gastritis and gastroparesis on Protonix and Reglan # Ileus s/p Small bowel follow thru which is negative, f/u Surgery # Ascites s/p paracentesis with +SBP s/p repeat paracentesis on 02/02 # Hypernatremia resolved after iv switched in D5W now hypernatremic again # Hypokalemia Plan - Worseing Hypernatremia with elevated BUN/Cr could be due to dehydration> will add D5W at 60cc/hr - Recheck BMP at 2 pm - Spoke to I.D who will dc all abx - Encourage water intake with food - c/w prednisolone 40 per GI , will taper it once one month is completed - PT - Pt still requires active Hospital treatment very weak, debilitated, on 3 abx , D5 W , bilirubin still 26 actively followed by consultants - If LFT does not improve after steroid treatment for [address] Mercer, pt will likley need transfer to Liver transplant center, spoke to Dr Mercer, will reconsult transplant centers for transplant Problems: Subjective 24 Hr Interval Summary Free Text/Dictation Pt opens eyes, tremolous Na 157 today <148 Exam/Review of Systems Vital Signs Vitals Vital Signs Date Time Temp Pulse Resp B/P Pulse Ox O2 Delivery O2 Flow Rate FiO2 02/07/17 07:49 97.6 74 20 118/68 100 02/05/17 12:00 Room Air Intake and Output 02/06/17 02/06/17 02/07/17 15:00 23:00 07:00 Intake Total 100 ml 1250 ml Output Total 600 ml Balance 100 ml 650 ml Exam GNERAL: Well-developed, ill-appearing,jaundice,male who is in no distress.awake ,alert, Tremolous HEENT: Head atraumatic, normocephalic. Sclerae anicteric. Buccal mucosa dry. NECK: Supple. CHEST: Rise symmetrical. Breath sounds diminished to bases. HEART: S1, S2. ABDOMEN: Distended, soft. Bowel tones present.ascites+ EXTREMITIES: With trace edema. [place] in place Results Result Diagram: 02/07/17 0530 02/07/17 0530 Results 24 hrs Laboratory Tests Test 02/07/17 05:30 White Blood Count 49.4 H Red Blood Count 2.29 L Hemoglobin 8.2 L Hematocrit 24.7 L Mean Corpuscular Volume 107.9 H Mean Corpuscular Hemoglobin 35.8 H Mean Corpuscular Hemoglobin Concent 33.2 Red Cell Distribution Width 23.1 H Platelet Count 40 L Mean Platelet Volume Neutrophils % Lymphocytes % Monocytes % Eosinophils % Basophils % Nucleated Red Blood Cells % 2.0 H Neutrophils # Lymphocytes # Monocytes # Eosinophils # Basophils # Nucleated Red Blood Cells # Sodium Level 157 H Potassium Level 3.5 Chloride Level 130 H Carbon Dioxide Level 14 L Anion Gap 17 H Blood Urea Nitrogen 76 H Creatinine 1.65 H Glucose Level 97 Calcium Level 8.7 Phosphorus Level 6.6 H Magnesium Level 2.2 Total Bilirubin 28.8 H Direct Bilirubin 26.40 *H Indirect Bilirubin 2.4 H Aspartate Amino Transf (AST/SGOT) 127 H Alanine Aminotransferase (ALT/SGPT) 79 H Alkaline Phosphatase 576 H Ammonia 51 #H Total Protein 5.3 L Albumin 2.0 L Globulin 3.30 H Albumin/Globulin Ratio 0.60 Medications Medications Current Medications Ondansetron HCl (Zofran Inj) 4 mg Q6H PRN IV NAUSEA AND/OR VOMITING Last administered on 01/03/17t 14:52; Admin Dose 4 MG; Start 01/02/17 at 23:00 IV Flush (NS 10 ml) 10 ml PRN PRN IV IV PROTOCOL; Start 01/05/17 at 18:30 Prednisolone (Prelone (Ped)) 40 mg DAILY PO Last administered on 02/07/17 09: 14; Admin Dose 40 MG; Start 01/12/17 at 09:00 Nystatin (Nystatin Susp) 5 ml QID PO Last administered on 02/07/17 09:14; Admin Dose 5 ML; Start 01/13/17 at 17:00 Glucose (Glutose) 15 gm Q15M PRN PO DECREASED GLUCOSE; Start 01/15/17 at 18:30 Glucose (Glutose) 22.5 gm Q15M PRN PO DECREASED GLUCOSE; Start 01/15/17 at 18: 30 Dextrose (D50w Syringe) 25 ml Q15M PRN IV DECREASED GLUCOSE; Start 01/15/17 at 18:30 Dextrose (D50w Syringe) 50 ml Q15M PRN IV DECREASED GLUCOSE; Start 01/15/17 at 18:30 Glucagon (Glucagen) 1 mg Q15M PRN IM DECREASED GLUCOSE; Start 01/15/17 at 18:30 Glucose (Glutose) 15 gm Q15M PRN BUCCAL DECREASED GLUCOSE; Start 01/15/17 at 18 :30 Diazepam (Valium) 10 mg BID PRN PO ANXIETY Last administered on 02/05/17 03: 11; Admin Dose 10 MG; Start 01/20/17 at 11:00 Lactulose (Enulose) 20 gm BID PO Last administered on 02/07/17 09:14; Admin Dose 20 GM; Start 01/20/17 at 21:00 Morphine Sulfate (morphine) 1 mg Q4H PRN IM PAIN; Start 01/23/17 at 10:00 Folic Acid (Folic Acid) 1 mg DAILY PO Last administered on 02/07/17 09:14; Admin Dose 1 MG; Start 01/26/17 at 09:00 Thiamine HCl (Vitamin B1) 100 mg DAILY PO Last administered on 02/07/17 09:14 ; Admin Dose 100 MG; Start 01/26/17 at 09:00 Multivit/Ca Carb/ B Cmplx/FA/Prenat 1 tab 1 tab DAILY PO Last administered on 02/07/17 09:14; Admin Dose 1 TAB; Start 01/26/17 at 09:00 Caspofungin/ Sodium Chloride (Cancidas/NS) 250 ml @ 250 mls/hr Q24H IVPB Last administered on 02/06/17 12:02; Admin Dose 250 MLS/HR; Start 01/27/17 at 13: 30 Lorazepam (Ativan) 0.5 mg Q6H PRN IV AGITATION/ANXIETY Last administered on 01:22; Admin Dose 0.5 MG; Start 01/28/17 at 14:00 Famotidine (Pepcid) 20 mg Q12 PO Last administered on 02/07/17 09:14; Admin Dose 20 MG; Start 01/28/17 at 21:00 Morphine Sulfate 1 mg 1 mg Q4 PRN IV pain Last administered on 01/30/17 03:02 ; Admin Dose 1 MG; Start 01/29/17 at 17:00 Doxycycline Hyclate 100 mg/ Dextrose 250 ml @ 250 mls/hr Q12 IVPB Last administered on 02/07/17 09:15; Admin Dose 250 MLS/HR; Start 01/31/17 at 21: 00 Meropenem/Sodium Chloride 50 ml @ 100 mls/hr Q12 IVPB Last administered on 20:42; Admin Dose 100 MLS/HR; Start 02/01/17 at 21:00 Dextrose (D5W) 1,000 ml @ 60 mls/hr [id number] IV Last administered on 09:35; Admin Dose 60 MLS/HR; Start 02/07/17 at 08:30 BRAEDEN LUNSFORD MD Feb 07, 2017 10:53
--- NOTE | 2017-02-07 11:14 | CONS ---
Date/Time of Note Date/Time of Note DATE: 02/07/17 TIME: 11:12 Assessment/Plan Assessment/Plan Additional Assessment/Plan IMPRESSION: 1. Delirium tremens patient is still shaky unable to stand on his feet and continues to have slurred speech 2. Hepatic encephalopathy. Better patient is now communicating with slurred speech, still confused 3. Alcoholic liver disease. Patient is on prednisolone, total bilirubin is not coming down 4. Pancreatitis. Amylase has come down . Lipase is down 5. Leukocytosis. Persistent most probably related to alcoholic hepatitis and steroid, is slowly coming down 6. Renal insufficiency. Though the urine output is good. Renal function has improved a lot with good urine output. Creatinine is coming down. 7. Pedal edema resolved 8. Thrombocytopenia better 9. Ileus, small bowel follow-through was negative 10. Patient's gastroparesis might be related to uremia better 11. Hypernatremia 12. Spontaneous bacterial peritonitis. Acetic fluid was cloudy, WBC polymorphs where greater than 250 second paracentesis fluid was no more cloudy 13. Hypernatremia Plan Continue 1 more week of prednisolone and then will taper it off it seems patient is not responding to prednisolone. After 1 week we should make arrangement to transfer the patient to tertiary care center continue lactulose and rifaximen for hepatic encephalopathy Discontinue all the antibiotic and observe Alcohol cessation counseled to patient's mother to ask son to stop drinking. Consultation Date/Type/Reason Admit Date/Time Jan 02, 2017 at 19:30 Type of Consultation: ID Referring Provider: BRAEDEN LUNSFORD MD 24 HR Interval Summary Subjective hx not possible: pt non-verbal, pt critical Exam/Review of Systems Vital Signs Vitals Vital Signs Date Time Temp Pulse Resp B/P Pulse Ox O2 Delivery O2 Flow Rate FiO2 02/07/17 07:49 97.6 74 20 118/68 100 02/05/17 12:00 Room Air Intake and Output 02/06/17 02/06/17 02/07/17 15:00 23:00 07:00 Intake Total 100 ml 1250 ml Output Total 600 ml Balance 100 ml 650 ml Exam Respiratory: clear to auscultation, normal air movement Cardiovascular: nl pulses, regular rate and rhythm Gastrointestinal: nl liver, spleen, non-tender, soft Neurological: lethargic Results Result Diagram: 02/07/1730 02/07/17 0530 Results 24 hrs Laboratory Tests Test 02/07/17 05:30 White Blood Count 49.4 H Red Blood Count 2.29 L Hemoglobin 8.2 L Hematocrit 24.7 L Mean Corpuscular Volume 107.9 H Mean Corpuscular Hemoglobin 35.8 H Mean Corpuscular Hemoglobin Concent 33.2 Red Cell Distribution Width 23.1 H Platelet Count 40 L Mean Platelet Volume Neutrophils % Lymphocytes % Monocytes % Eosinophils % Basophils % Nucleated Red Blood Cells % 2.0 H Neutrophils # Lymphocytes # Monocytes # Eosinophils # Basophils # Nucleated Red Blood Cells # Sodium Level 157 H Potassium Level 3.5 Chloride Level 130 H Carbon Dioxide Level 14 L Anion Gap 17 H Blood Urea Nitrogen 76 H Creatinine 1.65 H Glucose Level 97 Calcium Level 8.7 Phosphorus Level 6.6 H Magnesium Level 2.2 Total Bilirubin 28.8 H Direct Bilirubin 26.40 *H Indirect Bilirubin 2.4 H Aspartate Amino Transf (AST/SGOT) 127 H Alanine Aminotransferase (ALT/SGPT) 79 H Alkaline Phosphatase 576 H Ammonia 51 #H Total Protein 5.3 L Albumin 2.0 L Globulin 3.30 H Albumin/Globulin Ratio 0.60 Medications Medications Current Medications Ondansetron HCl (Zofran Inj) 4 mg Q6H PRN IV NAUSEA AND/OR VOMITING Last administered on 01/03/17 14:52; Admin Dose 4 MG; Start 01/02/17 at 23:00 IV Flush (NS 10 ml) 10 ml PRN PRN IV IV PROTOCOL; Start 01/05/17 at 18:30 Prednisolone (Prelone (Ped)) 40 mg DAILY PO Last administered on 02/07/17 09: 14; Admin Dose 40 MG; Start 01/12/17 at 09:00 Nystatin (Nystatin Susp) 5 ml QID PO Last administered on 02/07/17 09:14; Admin Dose 5 ML; Start 01/13/17 at 17:00 Glucose (Glutose) 15 gm Q15M PRN PO DECREASED GLUCOSE; Start 01/15/17 at 18:30 Glucose (Glutose) 22.5 gm Q15M PRN PO DECREASED GLUCOSE; Start 01/15/17 at 18: 30 Dextrose (D50w Syringe) 25 ml Q15M PRN IV DECREASED GLUCOSE; Start 01/15/17 at 18:30 Dextrose (D50w Syringe) 50 ml Q15M PRN IV DECREASED GLUCOSE; Start 01/15/17 at 18:30 Glucagon (Glucagen) 1 mg Q15M PRN IM DECREASED GLUCOSE; Start 01/15/17 at 18:30 Glucose (Glutose) 15 gm Q15M PRN BUCCAL DECREASED GLUCOSE; Start 01/15/17 at 18 :30 Diazepam (Valium) 10 mg BID PRN PO ANXIETY Last administered on 02/05/17 03: 11; Admin Dose 10 MG; Start 01/20/17 at 11:00 Lactulose (Enulose) 20 gm BID PO Last administered on 02/07/17 09:14; Admin Dose 20 GM; Start 01/20/17 at 21:00 Morphine Sulfate (morphine) 1 mg Q4H PRN IM PAIN; Start 01/23/17 at 10:00 Folic Acid (Folic Acid) 1 mg DAILY PO Last administered on 02/07/17 09:14; Admin Dose 1 MG; Start 01/26/17 at 09:00 Thiamine HCl (Vitamin B1) 100 mg DAILY PO Last administered on 02/07/17 09:14 ; Admin Dose 100 MG; Start 01/26/17 at 09:00 Multivit/Ca Carb/ B Cmplx/FA/Prenat 1 tab 1 tab DAILY PO Last administered on 02/07/17 09:14; Admin Dose 1 TAB; Start 01/26/17 at 09:00 Caspofungin/ Sodium Chloride (Cancidas/NS) 250 ml @ 250 mls/hr Q24H IVPB Last administered on 02/06/17 12:02; Admin Dose 250 MLS/HR; Start 01/27/17 at 13: 30 Lorazepam (Ativan) 0.5 mg Q6H PRN IV AGITATION/ANXIETY Last administered on 01:22; Admin Dose 0.5 MG; Start 01/28/17 at 14:00 Famotidine (Pepcid) 20 mg Q12 PO Last administered on 02/07/17 09:14; Admin Dose 20 MG; Start 01/28/17 at 21:00 Morphine Sulfate 1 mg 1 mg Q4 PRN IV pain Last administered on 01/30/17 03:02 ; Admin Dose 1 MG; Start 01/29/17 at 17:00 Doxycycline Hyclate 100 mg/ Dextrose 250 ml @ 250 mls/hr Q12 IVPB Last administered on 02/07/17 09:15; Admin Dose 250 MLS/HR; Start 01/31/17 at 21: 00 Meropenem/Sodium Chloride 50 ml @ 100 mls/hr Q12 IVPB Last administered on 20:42; Admin Dose 100 MLS/HR; Start 02/01/17 at 21:00 Dextrose (D5W) 1,000 ml @ 60 mls/hr [id number] IV Last administered on 09:35; Admin Dose 60 MLS/HR; Start 02/07/17 at 08:30 LAURA CORDERO MD Feb 07, 2017 11:14
--- NOTE | 2017-02-07 13:19 | CONS ---
Date/Time of Note Date/Time of Note DATE: 02/07/17 TIME: 13:17 Consult Date/Type/Reason Admit Date/Time Jan 02, 2017 at 19:30 Initial Consult Date 01/07/17 Type of Consultation: ID Ordering Provider: BRAEDEN VAZQUEZ MD Objective Vital Signs Date Time Temp Pulse Resp B/P Pulse Ox O2 Delivery O2 Flow Rate FiO2 02/07/17 07:49 97.6 74 20 118/68 100 02/05/17 12:00 Room Air Intake and Output 02/06/17 02/06/17 02/07/17 15:00 23:00 07:00 Intake Total 100 ml 1250 ml Output Total 600 ml Balance 100 ml 650 ml Results/Medications Result Diagram: 02/07/17 0530 02/07/17 0530 Results 24 hrs Laboratory Tests Test 02/07/17 05:30 White Blood Count 49.4 H Red Blood Count 2.29 L Hemoglobin 8.2 L Hematocrit 24.7 L Mean Corpuscular Volume 107.9 H Mean Corpuscular Hemoglobin 35.8 H Mean Corpuscular Hemoglobin Concent 33.2 Red Cell Distribution Width 23.1 H Platelet Count 40 L Mean Platelet Volume Neutrophils % Lymphocytes % Monocytes % Eosinophils % Basophils % Nucleated Red Blood Cells % 2.0 H Neutrophils # Lymphocytes # Monocytes # Eosinophils # Basophils # Nucleated Red Blood Cells # Sodium Level 157 H Potassium Level 3.5 Chloride Level 130 H Carbon Dioxide Level 14 L Anion Gap 17 H Blood Urea Nitrogen 76 H Creatinine 1.65 H Glucose Level 97 Calcium Level 8.7 Phosphorus Level 6.6 H Magnesium Level 2.2 Total Bilirubin 28.8 H Direct Bilirubin 26.40 *H Indirect Bilirubin 2.4 H Aspartate Amino Transf (AST/SGOT) 127 H Alanine Aminotransferase (ALT/SGPT) 79 H Alkaline Phosphatase 576 H Ammonia 51 #H Total Protein 5.3 L Albumin 2.0 L Globulin 3.30 H Albumin/Globulin Ratio 0.60 Medications Current Medications Ondansetron HCl (Zofran Inj) 4 mg Q6H PRN IV NAUSEA AND/OR VOMITING Last administered on 01/03/17t 14:52; Admin Dose 4 MG; Start 01/02/17 at 23:00 IV Flush (NS 10 ml) 10 ml PRN PRN IV IV PROTOCOL; Start 01/05/17 at 18:30 Prednisolone (Prelone (Ped)) 40 mg DAILY PO Last administered on 02/07/17 09: 14; Admin Dose 40 MG; Start 01/12/17 at 09:00 Nystatin (Nystatin Susp) 5 ml QID PO Last administered on 02/07/17 09:14; Admin Dose 5 ML; Start 01/13/17 at 17:00 Glucose (Glutose) 15 gm Q15M PRN PO DECREASED GLUCOSE; Start 01/15/17 at 18:30 Glucose (Glutose) 22.5 gm Q15M PRN PO DECREASED GLUCOSE; Start 01/15/17 at 18: 30 Dextrose (D50w Syringe) 25 ml Q15M PRN IV DECREASED GLUCOSE; Start 01/15/17 at 18:30 Dextrose (D50w Syringe) 50 ml Q15M PRN IV DECREASED GLUCOSE; Start 01/15/17 at 18:30 Glucagon (Glucagen) 1 mg Q15M PRN IM DECREASED GLUCOSE; Start 01/15/17 at 18:30 Glucose (Glutose) 15 gm Q15M PRN BUCCAL DECREASED GLUCOSE; Start 01/15/17 at 18 :30 Diazepam (Valium) 10 mg BID PRN PO ANXIETY Last administered on 02/05/17 03: 11; Admin Dose 10 MG; Start 01/20/17 at 11:00 Lactulose (Enulose) 20 gm BID PO Last administered on 02/07/17 09:14; Admin Dose 20 GM; Start 01/20/17 at 21:00 Morphine Sulfate (morphine) 1 mg Q4H PRN IM PAIN; Start 01/23/17 at 10:00 Folic Acid (Folic Acid) 1 mg DAILY PO Last administered on 02/07/17 09:14; Admin Dose 1 MG; Start 01/26/17 at 09:00 Thiamine HCl (Vitamin B1) 100 mg DAILY PO Last administered on 02/07/17 09:14 ; Admin Dose 100 MG; Start 01/26/17 at 09:00 Multivit/Ca Carb/ B Cmplx/FA/Prenat 1 tab 1 tab DAILY PO Last administered on 02/07/17 09:14; Admin Dose 1 TAB; Start 01/26/17 at 09:00 Caspofungin/ Sodium Chloride (Cancidas/NS) 250 ml @ 250 mls/hr Q24H IVPB Last administered on 02/06/17 12:02; Admin Dose 250 MLS/HR; Start 01/27/17 at 13: 30 Lorazepam (Ativan) 0.5 mg Q6H PRN IV AGITATION/ANXIETY Last administered on 01:22; Admin Dose 0.5 MG; Start 01/28/17 at 14:00 Famotidine (Pepcid) 20 mg Q12 PO Last administered on 02/07/17 09:14; Admin Dose 20 MG; Start 01/28/17 at 21:00 Morphine Sulfate 1 mg 1 mg Q4 PRN IV pain Last administered on 01/30/17 03:02 ; Admin Dose 1 MG; Start 01/29/17 at 17:00 Doxycycline Hyclate 100 mg/ Dextrose 250 ml @ 250 mls/hr Q12 IVPB Last administered on 02/07/17 09:15; Admin Dose 250 MLS/HR; Start 01/31/17 at 21: 00 Meropenem/Sodium Chloride 50 ml @ 100 mls/hr Q12 IVPB Last administered on 20:42; Admin Dose 100 MLS/HR; Start 02/01/17 at 21:00 Dextrose (D5W) 1,000 ml @ 60 mls/hr [id number] IV Last administered on 09:35; Admin Dose 60 MLS/HR; Start 02/07/17 at 08:30 Assessment/Plan Chief Complaint/Hosp Course SUBJECTIVE: No events overnight per report. Sleeping, looks comfortable. INDWELLINGS: The patient has a left upper extremity PICC line and rectal tube. Abx: Merrem, Doxycycline, Cancidas PHYSICAL EXAMINATION: GENERAL: Chronically ill-appearing, middle-aged man who is in no distress. HEENT: Head atraumatic, normocephalic. Sclerae anicteric. Buccal mucosa dry. NECK: Supple, trachea midline. CHEST: Rise symmetrical. Breath sounds diminished to bases. HEART: S1, S2. ABDOMEN: Distended, soft. Bowel tones hypoactive. EXTREMITIES: With trace edema. ASSESSMENT: 1. Persistent leukocytosis secondary to SBP, acute pancreatitis and also steroid induced. 2. Hepatic encephalopathy. 3. Alcoholic liver disease. 4. Recurrent ascites, status post paracentesis on admission, ==> repeated yesterday. 5. Acute renal failure, improving. 6. Hepatic encephalopathy. 7. Status post septic shock. PLAN: Remains unchanged, no fevers, continue present care/ aspiration precautions, dc abx and observe, f/u GI/pulmonary/surgical rec-s, repeat cx's prn DW Dr Vazquez Problems: ROSALIA BARKER NP Feb 07, 2017 13:19
[2017-02-07 14:30] VITALS: BP 115/67; RESP 21
[2017-02-07 15:34] LABS: CALCIUM 8.8 mg/dl (8.4-10.2); CREATININE 1.73 mg/dl (0.61-1.24); POTASSIUM 3.3 mmol/L (3.5-5.1)
--- NOTE | 2017-02-07 15:36 | PN ---
Date/Time of Note Date/Time of Note DATE: 02/07/17 TIME: 15:24 Assessment/Plan Lines/Catheters IV C[facility] Type (from [facility]): P[facility] Line Assessment/Plan Chief Complaint/Hosp Course 1. Paralytic ileus 2nd acute processes. SBFT negative. resolved; +bowel function -Monitor 2. Acute on chronic alcoholic pancreatitis with peripancreatic fluid -Supportive measures -off all abx -Judicious fluid management -Trend labs -Encourage cessation 3. Acute GI bleed from gastritis and esophageal varices secondary to alcoholism. Stable -Transfuse as needed -Supportive measures: ppi -Correct coagulopathy and platelet dysfunction 4. Anemia secondary to above: h/h stable -As above 5. Leukocytosis, multifactorial with SIRS and steroid therapy, doubt infectious (no bandemia, no fevers, chills, tachycardia); increasing; off all abx at this point -Close monitoring -follow ascitic fluid studies 6. Alcoholic hepatitis with hepatosplenomegaly, ascites; elevated LFT's ( improving); s/p multiple paracentesis; possible transfer to tertiary center. -Medical and GI optimization -transfer to tertiary center 7. Chronic alcohol abuse with Delirium Tremens; no tremors -Encourage cessation -Sedation/intubation 8. Subcapsular liver collection possible hematoma versus other -Monitor 9. Electrolyte imbalance -Correct with replacements and fluid management 10. Alcohol withdrawal with tachypnea, tachycardia and delirium tremens; improved -supportive 11. NICOLAS: improving -judicious fluids -avoid nephrotoxic meds 12. Atelectasis vs. pna -IS -increase activity-OOB as tolerated; PT Thank you. Patient seen and examined in collaboration with Dr. Bob Tristan. Problems: Subjective 24 Hr Interval Summary Feeling much improved today. No tremors. Resting comfortably. Leukocytosis worsened. Off abx for observation. Attempt to transfer to tertiary center. No fevers, chills, sob, congested cough, n/v/d/dysuria. Exam/Review of Systems Vital Signs Vitals Vital Signs Date Time Temp Pulse Resp B/P Pulse Ox O2 Delivery O2 Flow Rate FiO2 02/07/17 14:30 96.5 73 21 115/67 99 02/05/17 12:00 Room Air Intake and Output 02/06/17 02/06/17 02/07/17 14:59 22:59 06:59 Intake Total 100 ml 1250 ml Output Total 600 ml Balance 100 ml 650 ml Exam Free Text/Dictation Constitutional: Confused Not oriented. more alert Psych: No nl mood/affect Head: atraumatic, normocephalic, No hematomas, No lacerations Eyes: EOMI, PERRL, icteric ENMT: nl external ears & nose, nl lips & teeth. Mucosa pink and dry. icteric Neck: non-tender, supple, No jvd Respiratory: No congested cough, No labored breathing Cardiovascular: No edema, No regular rate and rhythm Gastrointestinal: soft, non tender, min distended. No rebound or guarding Musculoskeletal: nl extremities to inspection, No joint tenderness; BLE edema Extremities: normal pulses, No calf tenderness, No cyanosis Neurological: Responsive Skin: rash or lesions (Jaundice), No diaphoresis, No nl turgor : minaya with luis output (improved; increased amount) Lymph: nl lymph nodes, nontender Results Result Diagram: 02/07/17 0530 02/07/17 0530 ELIO GIBBONS NP Feb 07, 2017 15:36
[2017-02-07] MEDS: POTASSIUM CHLORIDE 250 ML IVPB SCH ×2 (18:22→22:00)
[2017-02-07 20:31] VITALS: BP 139/81; RESP 19
[2017-02-07 20:44] VITALS: PULSE 77
[2017-02-07 22:53] LABS: CREATININE 1.86 mg/dl (0.61-1.24); POTASSIUM 4.1 mmol/L (3.5-5.1)
[2017-02-08] VITALS (16 sets, daily range): BP systolic 90–120; BP diastolic 56–77; PULSE 69–77; RESP 18–20
[2017-02-08] MEDS: DEXTROSE 5% 1,000 ML IV SCH ×3 (01:10→22:18)
[2017-02-08] MEDS: THIAMINE 100 MG TAB PO SCH (08:52)
[2017-02-08] MEDS: FAMOTIDINE 20 MG TAB PO SCH ×2 (08:52→22:12)
[2017-02-08] MEDS: NYSTATIN SUSP 5 ML CUP PO SCH ×4 (08:52→22:12)
[2017-02-08] MEDS: BALSAM PERU/CASTOR OIL 60 GM TUBE TOP SCH ×2 (08:52→21:00)
[2017-02-08] MEDS: predniSOLONE (3 MG/ML PO SYG) PO SCH (08:52)
[2017-02-08] MEDS: MULTIVIT/CA CARB/B CMPLX/FA TAB PO SCH (08:52)
[2017-02-08] MEDS: FOLIC ACID 1 MG TAB PO SCH (08:52)
[2017-02-08] MEDS: LORAZEPAM 2 MG INJ IV PRN (08:59)
[2017-02-08 11:57] LABS: INR 3.16; PROTIME 32.9 Sec (12.2-14.2); PT RATIO 2.6
[2017-02-08 12:03] LABS: CREATININE 1.85 mg/dl (0.61-1.24); POTASSIUM 4.4 mmol/L (3.5-5.1)
--- NOTE | 2017-02-08 13:49 | CONS ---
Date/Time of Note Date/Time of Note DATE: 02/08/17 TIME: 13:46 Consult Date/Type/Reason Admit Date/Time Jan 02, 2017 at 19:30 Initial Consult Date 01/07/17 Type of Consultation: ID Ordering Provider: BRAEDEN LUNSFORD MD Objective Vital Signs Date Time Temp Pulse Resp B/P Pulse Ox O2 Delivery O2 Flow Rate FiO2 02/08/17 12:53 71 02/08/17 11:37 98.9 18 109/64 98 02/05/17 12:00 Room Air Intake and Output 02/07/17 02/07/17 02/08/17 15:00 23:00 07:00 Intake Total 490 ml 162.5 ml 325.0 ml Output Total 800 ml 700 ml 650 ml Balance -310 ml -537.5 ml -325.0 ml Results/Medications Result Diagram: 02/07/17 0530 02/08/17 1052 Results 24 hrs Laboratory Tests Test 02/07/17 14:43 02/07/17 22:21 02/08/17 10:52 Sodium Level 157 H 156 H 158 H Potassium Level 3.3 L 4.1 4.4 Chloride Level 130 H 132 H 134 H Carbon Dioxide Level 14 L 14 L 11 L Anion Gap 16 14 17 H Blood Urea Nitrogen 78 H 79 H 82 H Creatinine 1.73 H 1.86 H 1.85 H Glucose Level 143 # 125 108 Calcium Level 8.8 9.0 9.0 Prothrombin Time 32.9 #H Prothrombin Time Ratio 2.6 INR International Normalized Ratio 3.16 Medications Current Medications Ondansetron HCl (Zofran Inj) 4 mg Q6H PRN IV NAUSEA AND/OR VOMITING Last administered on 01/03/17 14:52; Admin Dose 4 MG; Start 01/02/17 at 23:00 IV Flush (NS 10 ml) 10 ml PRN PRN IV IV PROTOCOL; Start 01/05/17 at 18:30 Prednisolone (Prelone (Ped)) 40 mg DAILY PO Last administered on 02/08/17 08: 52; Admin Dose 40 MG; Start 01/12/17 at 09:00 Nystatin (Nystatin Susp) 5 ml QID PO Last administered on 02/08/17 12:47; Admin Dose 5 ML; Start 01/13/17 at 17:00 Glucose (Glutose) 15 gm Q15M PRN PO DECREASED GLUCOSE; Start 01/15/17 at 18:30 Glucose (Glutose) 22.5 gm Q15M PRN PO DECREASED GLUCOSE; Start 01/15/17 at 18: 30 Dextrose (D50w Syringe) 25 ml Q15M PRN IV DECREASED GLUCOSE; Start 01/15/17 at 18:30 Dextrose (D50w Syringe) 50 ml Q15M PRN IV DECREASED GLUCOSE; Start 01/15/17 at 18:30 Glucagon (Glucagen) 1 mg Q15M PRN IM DECREASED GLUCOSE; Start 01/15/17 at 18:30 Glucose (Glutose) 15 gm Q15M PRN BUCCAL DECREASED GLUCOSE; Start 01/15/17 at 18 :30 Diazepam (Valium) 10 mg BID PRN PO ANXIETY Last administered on 02/05/17 03: 11; Admin Dose 10 MG; Start 01/20/17 at 11:00 Morphine Sulfate (morphine) 1 mg Q4H PRN IM PAIN; Start 01/23/17 at 10:00 Folic Acid (Folic Acid) 1 mg DAILY PO Last administered on 02/08/17 08:52; Admin Dose 1 MG; Start 01/26/17 at 09:00 Thiamine HCl (Vitamin B1) 100 mg DAILY PO Last administered on 02/08/17 08:52 ; Admin Dose 100 MG; Start 01/26/17 at 09:00 Multivit/Ca Carb/ B Cmplx/FA/Prenat (Elizabeth-Kaylee) 1 tab DAILY PO Last administered on 02/08/17 08:52; Admin Dose 1 TAB; Start 01/26/17 at 09:00 Lorazepam (Ativan) 0.5 mg Q6H PRN IV AGITATION/ANXIETY Last administered on 08:59; Admin Dose 0.5 MG; Start 01/28/17 at 14:00 Famotidine (Pepcid) 20 mg Q12 PO Last administered on 02/08/17 08:52; Admin Dose 20 MG; Start 01/28/17 at 21:00 Morphine Sulfate 1 mg 1 mg Q4 PRN IV pain Last administered on 01/30/17 03:02 ; Admin Dose 1 MG; Start 01/29/17 at 17:00 Dextrose (D5W) 1,000 ml @ 100 mls/hr Q10H IV Last administered on 02/08/17t 12:47; Admin Dose 100 MLS/HR; Start 02/07/17 at 08:30 Desmopressin Acetate (Ddavp) 10 mcg ONCE SC ; Start 02/08/17 at 14:00; Stop at 16:00 Citric Acid/ Sodium Citrate (Bicitra) 30 ml TID PO ; Start 02/08/17 at 13:00 Assessment/Plan Chief Complaint/Hosp Course SUBJECTIVE: No events overnight per report. Looks, looks comfortable. INDWELLINGS: The patient has a left upper extremity PICC line and rectal tube. PHYSICAL EXAMINATION: GENERAL: Chronically ill-appearing, middle-aged man who is in no distress. HEENT: Head atraumatic, normocephalic. Sclerae anicteric. Buccal mucosa dry. NECK: Supple, trachea midline. CHEST: Rise symmetrical. Breath sounds diminished to bases. HEART: S1, S2. ABDOMEN: Distended, soft. Bowel tones hypoactive. EXTREMITIES: With trace edema. ASSESSMENT: 1. Persistent leukocytosis secondary to SBP, acute pancreatitis and also steroid induced. 2. Hepatic encephalopathy. 3. Alcoholic liver disease. 4. Recurrent ascites, status post paracentesis/SBP==> treated 5. Acute renal failure, improving. 6. Hepatic encephalopathy. 7. Status post septic shock. 8. Pancreatitis PLAN: Remains unchanged, no fevers, abx dc'd 01/28, continue present care/ aspiration precautions, f/u GI/pulmonary/surgical rec-s, repeat cx's prn [facility] staff Problems: ROSALIA BARKER NP Feb 08, 2017 13:49
[2017-02-08 13:50] LABS: AADO2 Arterial 43.3 mmHg (7.0-24.0); Allen Test ACCEPTAB; Arterial Base Excess -12.7 mmol/L (-3.0-3); Arterial COHb 2.7 % (0.0-3.0); Arterial Fraction of Oxyhgb 90.4 % (93.0-99.0); Arterial HCO3 12.1 mmol/L (22.0-26.0); Arterial MetHb 0.3 % (0.0-1.5); Arterial Total Hemglobin 8.5 g/dl (12.0-18.0); MODE ROOM AIR
[2017-02-08] MEDS: CITRIC ACID/NA CITRATE 30 ML CUP PO SCH ×2 (13:55→22:12)
[2017-02-08] MEDS ORDERED: DESMOPRESSIN 4 MCG INJ SC SCH (14:00)
--- NOTE | 2017-02-08 14:16 | PN ---
Date/Time of Note Date/Time of Note DATE: 02/08/17 TIME: 14:11 Assessment/Plan Lines/Catheters IV Catheter Type (from [facility]): PICC Line Minaya in Place (from [facility]): Yes Assessment/Plan Chief Complaint/Hosp Course 1. Paralytic ileus 2nd acute processes. SBFT negative. resolved; +bowel function -Monitor 2. Acute on chronic alcoholic pancreatitis with peripancreatic fluid -Supportive measures -off all abx -Judicious fluid management -Trend labs -Encourage cessation 3. Acute GI bleed from gastritis and esophageal varices secondary to alcoholism. Stable -Transfuse as needed -Supportive measures: ppi -Correct coagulopathy and platelet dysfunction 4. Anemia secondary to above: h/h stable -As above 5. Leukocytosis, multifactorial with SIRS and steroid therapy, doubt infectious (no bandemia, no fevers, chills, tachycardia); continues to increase ; off all abx at this point -Close monitoring -follow ascitic fluid studies 6. Alcoholic hepatitis with hepatosplenomegaly, ascites; elevated LFT's; s/p multiple paracentesis; possible transfer to tertiary center. -Medical and GI optimization -transfer to tertiary center 7. Chronic alcohol abuse with Delirium Tremens; no tremors -Encourage cessation -Sedation/intubation 8. Subcapsular liver collection possible hematoma versus other -Monitor 9. Electrolyte imbalance; persistent hypernatremia -Correct with replacements and fluid management 10. NICOLAS: -judicious fluids -avoid nephrotoxic meds 11. Atelectasis vs. pna -IS -increase activity-OOB as tolerated; PT Thank you. Patient seen and examined in collaboration with Dr. Bob Tristan. Problems: Subjective 24 Hr Interval Summary Reports of urine retention-minaya inserted. Leukocytosis increasing. Somnolent. No fevers, chills, sob, congested cough, cp, palpitations, bat[place], dizziness, n/v/d/ dysuria. Possible transfer to [facility] Exam/Review of Systems Vital Signs Vitals Vital Signs Date Time Temp Pulse Resp B/P Pulse Ox O2 Delivery O2 Flow Rate FiO2 02/08/17 12:53 71 02/08/17 11:37 98.9 18 109/64 98 02/05/17 12:00 Room Air Intake and Output 02/07/17 02/07/17 02/08/17 15:00 23:00 07:00 Intake Total 490 ml 162.5 ml 325.0 ml Output Total 800 ml 700 ml 650 ml Balance -310 ml -537.5 ml -325.0 ml Exam Free Text/Dictation Constitutional: Confused Not oriented. more alert Psych: No nl mood/affect Head: atraumatic, normocephalic, No hematomas, No lacerations Eyes: EOMI, PERRL, icteric ENMT: nl external ears & nose, nl lips & teeth. Mucosa pink and dry. icteric Neck: non-tender, supple, No jvd Respiratory: No congested cough, No labored breathing Cardiovascular: No edema, No regular rate and rhythm Gastrointestinal: soft, non tender, mod distended. No rebound or guarding Musculoskeletal: nl extremities to inspection, No joint tenderness; BLE edema Extremities: normal pulses, No calf tenderness, No cyanosis Neurological: Responsive Skin: rash or lesions (Jaundice), No diaphoresis, No nl turgor : minaya with luis output Lymph: nl lymph nodes, nontender Results Result Diagram: 02/07/17 0530 02/08/17 1052 ELIO GIBBONS NP Feb 08, 2017 14:16
--- NOTE | 2017-02-08 14:32 | PN ---
Date/Time of Note Date/Time of Note DATE: 02/08/17 TIME: 14:16 Assessment/Plan VTE Prophylaxis VTE Prophylaxis Intervention: contraindicated Lines/Catheters IV Catheter Type (from Nrs): PICC Line Central line still needed: Yes Urinary Cath still in place: Yes Reason Cath still needed: urinary retention Assessment/Plan Chief Complaint/Hosp Course 36 y/o with # AMS now could be due to metabolic due to hypernatremia which could be due to dehydration/diarhhoea # Elevated bun/cr ratio with worseing acidosis could be due dehydration/ diarrhoia # NICOLAS likely Oliguric ATN vs HRS > Cr 1.85 # Acute on chronic liver failure with alcholic hepatitis likely Etoh abuse with elevated INR, Hyperbilirubenemia, low platelets, elevated bilirubin # Hepatic encephalopathy # ETOH withdrawal on Ativan/librium tapered off # ETOH pancreatitis with Lipase 7690> trending down to 1999> trended down siginificantly # Non Gap Acidosis 2 to renal failure/diarrhoea # Leukocytosis now likely to steroids # Hypoxic Respiratory failure s/p Intubation now extubated on 01/15 # Thrombocytopenia # Anemia likely hemodilutional : no evidence of bleeding s/p EGD with gastritis and gastroparesis on PPI and Reglan # s/P EGD with gastritis and gastroparesis on Protonix and Reglan # Ileus s/p Small bowel follow thru which is negative, f/u Surgery # Ascites s/p paracentesis with +SBP s/p repeat paracentesis on 02/02 # Hypernatremia resolved after iv switched in D5W now hypernatremic again # Hypokalemia Plan - Desmopressin today for hypernatremia - c/w D5 W - Repeat BMP today - Spoke to Dr Mercer will insert NG tube for administration of meds/ fw - NPO/Aspiration precautions - Will start tapering off prednsione per GI by 02/11 - Avoid Ativan/morphine - Restart Bictra for acidosis( limited in giving na bicarb as Na high ) - Trying to expedite the transfer of patient to Liver transplant center Problems: Subjective 24 Hr Interval Summary Free Text/Dictation Transferred to telemetry due to elevated Na Pt on D5 W at 60 was increased but still Na 158 UOP 2150 last 24 hrs Exam/Review of Systems Vital Signs Vitals Vital Signs Date Time Temp Pulse Resp B/P Pulse Ox O2 Delivery O2 Flow Rate FiO2 02/08/17 12:53 71 02/08/17 11:37 98.9 18 109/64 98 02/05/17 12:00 Room Air Intake and Output 02/07/17 02/07/17 02/08/17 15:00 23:00 07:00 Intake Total 490 ml 162.5 ml 325.0 ml Output Total 800 ml 700 ml 650 ml Balance -310 ml -537.5 ml -325.0 ml Exam GNERAL: Well-developed, ill-appearing,jaundice,male who is in no distress.awake ,alert, Tremolous HEENT: Head atraumatic, normocephalic. Sclerae anicteric. Buccal mucosa dry. NECK: Supple. CHEST: Rise symmetrical. Breath sounds diminished to bases. HEART: S1, S2. ABDOMEN: Distended, soft. Bowel tones present.ascites+ EXTREMITIES: With trace edema. [place] in place Results Result Diagram: 02/07/17 0530 02/08/17 1052 Results 24 hrs Laboratory Tests Test 02/07/17 14:43 02/07/17 22:21 02/08/17 10:52 02/08/17 12:30 Sodium Level 157 H 156 H 158 H Potassium Level 3.3 L 4.1 4.4 Chloride Level 130 H 132 H 134 H Carbon Dioxide Level 14 L 14 L 11 L Anion Gap 16 14 17 H Blood Urea Nitrogen 78 H 79 H 82 H Creatinine 1.73 H 1.86 H 1.85 H Glucose Level 143 # 125 108 Calcium Level 8.8 9.0 9.0 Prothrombin Time 32.9 #H Prothrombin Time Ratio 2.6 INR International Normalized Ratio 3.16 Blood Gas Specimen Source Blood arterial Arterial Blood Date Drawn 02/08/2017 1:40:31 PM Arterial Blood pH (Temp corrected) 7.312 L Arterial Blood pCO2 (Temp correct) 24.5 L Arterial Blood pO2 (Temp corrected) 77.1 L Arterial Blood HCO3 12.1 L Arterial Blood Base Excess -12.7 L Arterial Blood Oxygen Saturation 93.2 L Prateek Test ACCEPTAB Arterial Blood Gas Puncture Site Left Radial Arterial Blood Carboxyhemoglobin 2.7 Arterial Blood Methemoglobin 0.3 Blood Gas A-a O2 Differential 43.3 H Oxyhemoglobin Percent 90.4 L Total Hemoglobin 8.5 L Blood Gas Temperature 37.0 Blood Gas Modality ROOM AIR FiO2 21.0 Blood Gas Notified Whom JLD Blood Gas Notified Time 02/08/2017 1:50:22 PM Medications Medications Current Medications Ondansetron HCl (Zofran Inj) 4 mg Q6H PRN IV NAUSEA AND/OR VOMITING Last administered on 01/03/17 14:52; Admin Dose 4 MG; Start 01/02/17 at 23:00 IV Flush (NS 10 ml) 10 ml PRN PRN IV IV PROTOCOL; Start 01/05/17 at 18:30 Prednisolone (Prelone (Ped)) 40 mg DAILY PO Last administered on 02/08/17 08: 52; Admin Dose 40 MG; Start 01/12/17 at 09:00 Nystatin (Nystatin Susp) 5 ml QID PO Last administered on 02/08/17 12:47; Admin Dose 5 ML; Start 01/13/17 at 17:00 Glucose (Glutose) 15 gm Q15M PRN PO DECREASED GLUCOSE; Start 01/15/17 at 18:30 Glucose (Glutose) 22.5 gm Q15M PRN PO DECREASED GLUCOSE; Start 01/15/17 at 18: 30 Dextrose (D50w Syringe) 25 ml Q15M PRN IV DECREASED GLUCOSE; Start 01/15/17 at 18:30 Dextrose (D50w Syringe) 50 ml Q15M PRN IV DECREASED GLUCOSE; Start 01/15/17 at 18:30 Glucagon (Glucagen) 1 mg Q15M PRN IM DECREASED GLUCOSE; Start 01/15/17 at 18:30 Glucose (Glutose) 15 gm Q15M PRN BUCCAL DECREASED GLUCOSE; Start 01/15/17 at 18 :30 Diazepam (Valium) 10 mg BID PRN PO ANXIETY Last administered on 02/05/17 03: 11; Admin Dose 10 MG; Start 01/20/17 at 11:00 Morphine Sulfate (morphine) 1 mg Q4H PRN IM PAIN; Start 01/23/17 at 10:00 Folic Acid (Folic Acid) 1 mg DAILY PO Last administered on 02/08/17 08:52; Admin Dose 1 MG; Start 01/26/17 at 09:00 Thiamine HCl (Vitamin B1) 100 mg DAILY PO Last administered on 02/08/17 08:52 ; Admin Dose 100 MG; Start 01/26/17 at 09:00 Multivit/Ca Carb/ B Cmplx/FA/Prenat (Elizabeth-Kaylee) 1 tab DAILY PO Last administered on 02/08/17 08:52; Admin Dose 1 TAB; Start 01/26/17 at 09:00 Lorazepam (Ativan) 0.5 mg Q6H PRN IV AGITATION/ANXIETY Last administered on 08:59; Admin Dose 0.5 MG; Start 01/28/17 at 14:00 Famotidine (Pepcid) 20 mg Q12 PO Last administered on 02/08/17 08:52; Admin Dose 20 MG; Start 01/28/17 at 21:00 Morphine Sulfate 1 mg 1 mg Q4 PRN IV pain Last administered on 01/30/17 03:02 ; Admin Dose 1 MG; Start 01/29/17 at 17:00 Dextrose (D5W) 1,000 ml @ 100 mls/hr Q10H IV Last administered on 02/08/17 12:47; Admin Dose 100 MLS/HR; Start 02/07/17 at 08:30 Desmopressin Acetate (Ddavp) 10 mcg ONCE SC Last administered on 02/08/17 13: 58; Admin Dose 10 MCG; Start 02/08/17 at 14:00; Stop 02/08/17 at 16:00 Citric Acid/ Sodium Citrate (Bicitra) 30 ml TID PO Last administered on 13:55; Admin Dose 30 ML; Start 02/08/17 at 13:00 BRAEDEN LUNSFORD MD Feb 08, 2017 14:31
--- NOTE | 2017-02-08 17:25 | RADRPT ---
PROCEDURE: XR Chest AP portable CLINICAL INDICATION: Assessment of NG tube placement TECHNIQUE: An AP portable radiograph of the chest was submitted. COMPARISON: 02/04/2017 FINDINGS: Support Hardware: The left upper extremity PICC catheter is stable in positioning. An NG tube is bee n placed and the tip is well into the stomach beyond the inferior limits of the image. Cardiovascular: The cardiovascular silhouette appears unremarkable. Lung Erickson: Airspace opacities are again seen to extend from prior L region is a into the lower rachid g zones, again greater on the left and the right. Pleural Spaces: No pneumothorax or pleural effusion is identified. Osseous Structures: The osseous structures appear intact. Soft Tissues: The soft tissues appear unremarkable. IMPRESSION: 1. Interval satisfactory placement of an NG tube been stable positioning of the left upper extremit y PICC catheter. 2. No change to the air space opacities extending from the prior L region is into the lower lung zo mary greater on the left and the right which could represent pulmonary edema or pneumonitis. Physician Makenna Date Time Electronically viewed and signed by Physician Makenna on 02/08/2017 17:25 /
--- NOTE | 2017-02-08 18:46 | CONS ---
Date/Time of Note Date/Time of Note DATE: 02/08/17 TIME: 18:45 Assessment/Plan Assessment/Plan Additional Assessment/Plan IMPRESSION: 1. Delirium tremens patient is still shaky unable to stand on his feet and continues to have slurred speech 2. Hepatic encephalopathy. Better patient is now communicating with slurred speech, still confused 3. Alcoholic liver disease. Patient is on prednisolone, total bilirubin is not coming down 4. Pancreatitis. Amylase has come down . Lipase is down 5. Leukocytosis. Persistent most probably related to alcoholic hepatitis and steroid, is slowly coming down 6. Renal insufficiency. Though the urine output is good. Renal function has improved a lot with good urine output. Creatinine is coming down. 7. Pedal edema resolved 8. Thrombocytopenia better 9. Ileus, small bowel follow-through was negative 10. Patient's gastroparesis might be related to uremia better 11. Hypernatremia 12. Spontaneous bacterial peritonitis. Acetic fluid was cloudy, WBC polymorphs where greater than 250 second paracentesis fluid was no more cloudy 13. Hypernatremia Plan Continue 1 more week of prednisolone and then will taper it off it seems patient is not responding to prednisolone. After 1 week we should make arrangement to transfer the patient to tertiary care center continue lactulose and rifaximen for hepatic encephalopathy Discontinue all the antibiotic and observe Alcohol cessation counseled to patient's mother to ask son to stop drinking. Resume feeding through the NG tube, Jevity 1.2 at 30 cc/h. All medication should be given through NG tube Arrangements should be made to transfer the patient to [facility] for liver transplantation Consultation Date/Type/Reason Admit Date/Time Jan 02, 2017 at 19:30 Type of Consultation: ID Referring Provider: BRAEDEN LUNSFORD MD 24 HR Interval Summary Free Text/Dictation Since mental condition has deteriorated. He required NG tube for nutritional support and also for medication Exam/Review of Systems Vital Signs Vitals Vital Signs Date Time Temp Pulse Resp B/P Pulse Ox O2 Delivery O2 Flow Rate FiO2 02/08/17 17:13 98.9 75 18 93/64 97 02/05/17 12:00 Room Air Intake and Output 02/07/17 02/07/17 02/08/17 15:00 23:00 07:00 Intake Total 490 ml 162.5 ml 325.0 ml Output Total 800 ml 700 ml 650 ml Balance -310 ml -537.5 ml -325.0 ml Exam Constitutional: alert, oriented, well developed Psych: nl mood/affect, no complaints Head: atraumatic, normocephalic Eyes: EOMI, PERRL, nl conjunctiva, nl lids, nl sclera ENMT: nl external ears & nose, nl lips & teeth, nl nasal mucosa & septum Neck: non-tender, supple Respiratory: clear to auscultation, normal air movement Cardiovascular: nl pulses, regular rate and rhythm Gastrointestinal: nl liver, spleen, non-tender, soft Musculoskeletal: nl extremities to inspection, nl gait and stance Extremities: normal pulses Neurological: SCREENER PERFUMER II-XII intact, nl mental status, nl speech, nl strength Skin: nl turgor, No rash or lesions Lymph: nl lymph nodes Results Result Diagram: 02/07/17 0530 02/08/17 1052 Results 24 hrs Laboratory Tests Test 02/07/17 22:21 02/08/17 10:52 02/08/17 12:30 Sodium Level 156 H 158 H Potassium Level 4.1 4.4 Chloride Level 132 H 134 H Carbon Dioxide Level 14 L 11 L Anion Gap 14 17 H Blood Urea Nitrogen 79 H 82 H Creatinine 1.86 H 1.85 H Glucose Level 125 108 Calcium Level 9.0 9.0 Prothrombin Time 32.9 #H Prothrombin Time Ratio 2.6 INR International Normalized Ratio 3.16 Blood Gas Specimen Source Blood arterial Arterial Blood Date Drawn 02/08/2017 1:40:31 PM Arterial Blood pH (Temp corrected) 7.312 L Arterial Blood pCO2 (Temp correct) 24.5 L Arterial Blood pO2 (Temp corrected) 77.1 L Arterial Blood HCO3 12.1 L Arterial Blood Base Excess -12.7 L Arterial Blood Oxygen Saturation 93.2 L Prateek Test ACCEPTAB Arterial Blood Gas Puncture Site Left Radial Arterial Blood Carboxyhemoglobin 2.7 Arterial Blood Methemoglobin 0.3 Blood Gas A-a O2 Differential 43.3 H Oxyhemoglobin Percent 90.4 L Total Hemoglobin 8.5 L Blood Gas Temperature 37.0 Blood Gas Modality ROOM AIR FiO2 21.0 Blood Gas Notified Whom ALLAD Blood Gas Notified Time 02/08/2017 1:50:22 PM Medications Medications Current Medications Ondansetron HCl (Zofran Inj) 4 mg Q6H PRN IV NAUSEA AND/OR VOMITING Last administered on 01/03/17 14:52; Admin Dose 4 MG; Start 01/02/17 at 23:00 IV Flush (NS 10 ml) 10 ml PRN PRN IV IV PROTOCOL; Start 01/05/17 at 18:30 Prednisolone (Prelone (Ped)) 40 mg DAILY PO Last administered on 02/08/17 08: 52; Admin Dose 40 MG; Start 01/12/17 at 09:00 Nystatin (Nystatin Susp) 5 ml QID PO Last administered on 02/08/17 12:47; Admin Dose 5 ML; Start 01/13/17 at 17:00 Glucose (Glutose) 15 gm Q15M PRN PO DECREASED GLUCOSE; Start 01/15/17 at 18:30 Glucose (Glutose) 22.5 gm Q15M PRN PO DECREASED GLUCOSE; Start 01/15/17 at 18: 30 Dextrose (D50w Syringe) 25 ml Q15M PRN IV DECREASED GLUCOSE; Start 01/15/17 at 18:30 Dextrose (D50w Syringe) 50 ml Q15M PRN IV DECREASED GLUCOSE; Start 01/15/17 at 18:30 Glucagon (Glucagen) 1 mg Q15M PRN IM DECREASED GLUCOSE; Start 01/15/17 at 18:30 Glucose (Glutose) 15 gm Q15M PRN BUCCAL DECREASED GLUCOSE; Start 01/15/17 at 18 :30 Diazepam (Valium) 10 mg BID PRN PO ANXIETY Last administered on 02/05/17 03: 11; Admin Dose 10 MG; Start 01/20/17 at 11:00 Morphine Sulfate (morphine) 1 mg Q4H PRN IM PAIN; Start 01/23/17 at 10:00 Folic Acid (Folic Acid) 1 mg DAILY PO Last administered on 02/08/17 08:52; Admin Dose 1 MG; Start 01/26/17 at 09:00 Thiamine HCl (Vitamin B1) 100 mg DAILY PO Last administered on 02/08/17 08:52 ; Admin Dose 100 MG; Start 01/26/17 at 09:00 Multivit/Ca Carb/ B Cmplx/FA/Prenat (Elizabeth-Kaylee) 1 tab DAILY PO Last administered on 02/08/17 08:52; Admin Dose 1 TAB; Start 01/26/17 at 09:00 Lorazepam (Ativan) 0.5 mg Q6H PRN IV AGITATION/ANXIETY Last administered on 08:59; Admin Dose 0.5 MG; Start 01/28/17 at 14:00 Famotidine (Pepcid) 20 mg Q12 PO Last administered on 02/08/17 08:52; Admin Dose 20 MG; Start 01/28/17 at 21:00 Morphine Sulfate 1 mg 1 mg Q4 PRN IV pain Last administered on 01/30/17 03:02 ; Admin Dose 1 MG; Start 01/29/17 at 17:00 Dextrose (D5W) 1,000 ml @ 100 mls/hr Q10H IV Last administered on 02/08/17 12:47; Admin Dose 100 MLS/HR; Start 02/07/17 at 08:30 Citric Acid/ Sodium Citrate (Bicitra) 30 ml TID PO Last administered on 13:55; Admin Dose 30 ML; Start 02/08/17 at 13:00 LAURA CORDERO MD Feb 08, 2017 18:46
[2017-02-08 20:43] LABS: CALCIUM 8.5 mg/dl (8.4-10.2); CREATININE 1.87 mg/dl (0.61-1.24); POTASSIUM 4.1 mmol/L (3.5-5.1)
[2017-02-09] VITALS (47 sets, daily range): BP systolic 94–131; BP diastolic 43–82; PULSE 72–83; RESP 14–35
[2017-02-09 05:17] LABS: ABNORMAL IP MESSAGE 1; HEMATOCRIT 22.5 % (42.0-52.0); HEMOGLOBIN 7.6 g/dl (14.0-18.0); MEAN CORPUSCULAR HEMOGLOBIN 36.9 pg (29.0-33.0); MEAN CORPUSCULAR HGB CONC 33.8 g/dl (32.0-37.0); MEAN CORPUSCULAR VOLUME 109.2 fl (82.0-101.0); NUCLEATED RED BLOOD CELLS% 4.2 /100WBC (0.0-0.0); POSITIVE DIFF @See below; RED BLOOD COUNT 2.06 10^6/ul (4.70-6.10); RED CELL DISTRIBUTION WIDTH 23.3 % (11.5-14.5); WHITE BLOOD COUNT 49.8 10^3/ul (4.8-10.8)
[2017-02-09 05:21] LABS: PLATELET COUNT 33 10^3/UL (140-415)
[2017-02-09 05:36] LABS: MAGNESIUM 2.3 mg/dl (1.7-2.5); PHOSPHORUS 6.3 mg/dl (2.5-4.9)
[2017-02-09 05:51] LABS: ALBUMIN 2.1 g/dl (3.3-4.9); ALBUMIN/GLOBULIN RATIO 0.65; BILIRUBIN,INDIRECT 2.6 mg/dl (0-1.1); CALCIUM 8.9 mg/dl (8.4-10.2); CREATININE 1.96 mg/dl (0.61-1.24); POTASSIUM 4.3 mmol/L (3.5-5.1); TOTAL PROTEIN 5.3 g/dl (6.1-8.1)
[2017-02-09 06:21] LABS: BILIRUBIN,TOTAL 29.1 mg/dl (0.2-1.3)
[2017-02-09 06:22] LABS: BILIRUBIN,DIRECT 26.5 mg/dl (0.00-0.20)
[2017-02-09] MEDS: FOLIC ACID 1 MG TAB PO SCH (08:11)
[2017-02-09] MEDS: predniSOLONE (3 MG/ML PO SYG) PO SCH (08:11)
[2017-02-09] MEDS: THIAMINE 100 MG TAB PO SCH (08:11)
[2017-02-09] MEDS: MULTIVIT/CA CARB/B CMPLX/FA TAB PO SCH (08:11)
[2017-02-09] MEDS: FAMOTIDINE 20 MG TAB PO SCH ×2 (08:11→22:05)
[2017-02-09] MEDS: BALSAM PERU/CASTOR OIL 60 GM TUBE TOP SCH ×2 (08:11→23:32)
[2017-02-09] MEDS: NYSTATIN SUSP 5 ML CUP PO SCH ×5 (08:11→22:06)
[2017-02-09] MEDS: CITRIC ACID/NA CITRATE 30 ML CUP PO SCH ×2 (08:15→14:55)
--- NOTE | 2017-02-09 09:00 | PN ---
Date/Time of Note Date/Time of Note DATE: 02/09/17 TIME: 09:00 Assessment/Plan VTE Prophylaxis VTE Prophylaxis Intervention: contraindicated Lines/Catheters IV Catheter Type (from Nrsg): PICC Line Central line still needed: Yes Urinary Cath still in place: Yes Reason Cath still needed: urinary retention Assessment/Plan Chief Complaint/Hosp Course 36 y/o with # AMS now could be due to metabolic due to hypernatremia/uremia which could be due to dehydration/diarhhoea # Elevated bun/cr ratio with worsening acidosis could be due dehydration/ diarrhoia # Non gap worsening Acidosis could be due to Renal failure/diarrhoea # NICOLAS likely Oliguric ATN vs HRS > Cr 1.85 # Acute on chronic liver failure with alcholic hepatitis likely Etoh abuse with elevated INR, Hyperbilirubenemia, low platelets, elevated bilirubin # Hepatic encephalopathy # ETOH withdrawal on Ativan/librium tapered off # ETOH pancreatitis with Lipase 7690> trending down to 2000> trended down siginificantly # Leukocytosis now likely to steroids # Hypoxic Respiratory failure s/p Intubation now extubated on 01/15 # Thrombocytopenia # Anemia likely hemodilutional : no evidence of bleeding s/p EGD with gastritis and gastroparesis on PPI and Reglan # s/P EGD with gastritis and gastroparesis on Protonix and Reglan # Ileus s/p Small bowel follow thru which is negative, f/u Surgery # Ascites s/p paracentesis with +SBP s/p repeat paracentesis on 02/02 Plan - s/p Desmopressin yesterday - c/w D5 W - Recheck Na q 6 hr, expect Na to fall in 24 hrs due to effect of desmopressin - NG tube - Will hold lactulose currently due to acidosis /hypernatremia with increased bowel movements - NPO/Aspiration precautions - Will start tapering off prednsione per GI by 02/11 - Avoid Ativan/morphine - Restart Bictra for acidosis( limited in giving na bicarb as Na high ) - Trying to expedite the transfer of patient to Liver transplant center Problems: Subjective 24 Hr Interval Summary Free Text/Dictation Transferred to ICU for hypernatremia for closer monitoring Had NG placed yesterday Pt altered Given desmopressin yesterday Exam/Review of Systems Vital Signs Vitals Vital Signs Date Time Temp Pulse Resp B/P Pulse Ox O2 Delivery O2 Flow Rate FiO2 02/09/17 06:00 76 21 101/74 99 Room Air 02/09/17 03:30 97.4 Intake and Output 02/08/17 02/08/17 02/09/17 14:59 22:59 06:59 Intake Total 200 ml 570 ml Output Total 400 ml 515 ml Balance -200 ml 55 ml Exam NERAL: Well-developed, ill-appearing,jaundice,male who is in no distress.awake, alert, Tremolous HEENT: Head atraumatic, normocephalic. Sclerae anicteric. Buccal mucosa dry. NECK: Supple. CHEST: Rise symmetrical. Breath sounds diminished to bases. HEART: S1, S2. ABDOMEN: Distended, soft. Bowel tones present.ascites+ EXTREMITIES: With trace edema. [place] in place Results Result Diagram: 02/09/17 0400 02/09/17 0400 Results 24 hrs Laboratory Tests Test 02/08/17 10:52 02/08/17 12:30 02/08/17 19:58 02/08/17 22:27 Prothrombin Time 32.9 #H Prothrombin Time Ratio 2.6 INR International Normalized Ratio 3.16 Sodium Level 158 H 151 H Potassium Level 4.4 4.1 Chloride Level 134 H 128 H Carbon Dioxide Level 11 L 10 L Anion Gap 17 H 17 H Blood Urea Nitrogen 82 H 82 H Creatinine 1.85 H 1.87 H Glucose Level 108 269 #H Calcium Level 9.0 8.5 Blood Gas Specimen Source Blood arterial Arterial Blood Date Drawn 02/08/2017 1:40:31 PM Arterial Blood pH (Temp corrected) 7.312 L Arterial Blood pCO2 (Temp correct) 24.5 L Arterial Blood pO2 (Temp corrected) 77.1 L Arterial Blood HCO3 12.1 L Arterial Blood Base Excess -12.7 L Arterial Blood Oxygen Saturation 93.2 L Prateek Test ACCEPTAB Arterial Blood Gas Puncture Site Left Radial Arterial Blood Carboxyhemoglobin 2.7 Arterial Blood Methemoglobin 0.3 Blood Gas A-a O2 Differential 43.3 H Oxyhemoglobin Percent 90.4 L Total Hemoglobin 8.5 L Blood Gas Temperature 37.0 Blood Gas Modality ROOM AIR FiO2 21.0 Blood Gas Notified Whom JLD Blood Gas Notified Time 02/08/2017 1:50:22 PM Ammonia 54 H Test 02/09/17 01:04 02/09/17 04:00 Sodium Level 154 H 158 H White Blood Count 49.8 H Red Blood Count 2.06 L Hemoglobin 7.6 L Hematocrit 22.5 L Mean Corpuscular Volume 109.2 H Mean Corpuscular Hemoglobin 36.9 H Mean Corpuscular Hemoglobin Concent 33.8 Red Cell Distribution Width 23.3 H Platelet Count 33 L Mean Platelet Volume Neutrophils % Lymphocytes % Monocytes % Eosinophils % Basophils % Nucleated Red Blood Cells % 4.2 H Neutrophils # Lymphocytes # Monocytes # Eosinophils # Basophils # Nucleated Red Blood Cells # Potassium Level 4.3 Chloride Level 132 H Carbon Dioxide Level 12 L Anion Gap 18 H Blood Urea Nitrogen 89 H Creatinine 1.96 H Glucose Level 107 # Calcium Level 8.9 Phosphorus Level 6.3 H Magnesium Level 2.3 Total Bilirubin 29.1 H Direct Bilirubin 26.50 *H Indirect Bilirubin 2.6 H Aspartate Amino Transf (AST/SGOT) 163 H Alanine Aminotransferase (ALT/SGPT) 85 H Alkaline Phosphatase 561 H Ammonia 47 H Total Protein 5.3 L Albumin 2.1 L Globulin 3.20 Albumin/Globulin Ratio 0.65 Medications Medications Current Medications Ondansetron HCl (Zofran Inj) 4 mg Q6H PRN IV NAUSEA AND/OR VOMITING Last administered on 01/03/17 14:52; Admin Dose 4 MG; Start 01/02/17 at 23:00 IV Flush (NS 10 ml) 10 ml PRN PRN IV IV PROTOCOL; Start 01/05/17 at 18:30 Prednisolone (Prelone (Ped)) 40 mg DAILY PO Last administered on 02/09/17 08: 11; Admin Dose 40 MG; Start 01/12/17 at 09:00 Nystatin (Nystatin Susp) 5 ml QID PO Last administered on 02/09/17 08:11; Admin Dose 5 ML; Start 01/13/17 at 17:00 Glucose (Glutose) 15 gm Q15M PRN PO DECREASED GLUCOSE; Start 01/15/17 at 18:30 Glucose (Glutose) 22.5 gm Q15M PRN PO DECREASED GLUCOSE; Start 01/15/17 at 18: 30 Dextrose (D50w Syringe) 25 ml Q15M PRN IV DECREASED GLUCOSE; Start 01/15/17 at 18:30 Dextrose (D50w Syringe) 50 ml Q15M PRN IV DECREASED GLUCOSE; Start 01/15/17 at 18:30 Glucagon (Glucagen) 1 mg Q15M PRN IM DECREASED GLUCOSE; Start 01/15/17 at 18:30 Glucose (Glutose) 15 gm Q15M PRN BUCCAL DECREASED GLUCOSE; Start 01/15/17 at 18 :30 Folic Acid (Folic Acid) 1 mg DAILY PO Last administered on 02/09/17 08:11; Admin Dose 1 MG; Start 01/26/17 at 09:00 Thiamine HCl (Vitamin B1) 100 mg DAILY PO Last administered on 02/09/17 08:11 ; Admin Dose 100 MG; Start 01/26/17 at 09:00 Multivit/Ca Carb/ B Cmplx/FA/Prenat (Elizabeth-Kaylee) 1 tab DAILY PO Last administered on 02/09/17 08:11; Admin Dose 1 TAB; Start 01/26/17 at 09:00 Lorazepam (Ativan) 0.5 mg Q6H PRN IV AGITATION/ANXIETY Last administered on 08:59; Admin Dose 0.5 MG; Start 01/28/17 at 14:00 Famotidine (Pepcid) 20 mg Q12 PO Last administered on 02/09/17 08:11; Admin Dose 20 MG; Start 01/28/17 at 21:00 Citric Acid/ Sodium Citrate 30 ml 30 ml TID PO Last administered on 02/09/17 08:15; Admin Dose 30 ML; Start 02/08/17 at 13:00 Dextrose (D5W) 1,000 ml @ 100 mls/hr Q10H IV Last administered on 02/08/17 22:18; Admin Dose 75 MLS/HR; Start 02/08/17 at 22:00 BRAEDEN LUNSFORD MD Feb 09, 2017 09:00
[2017-02-09 09:14] LABS: ANISOCYTOSIS 3+ (0-0); BURR CELLS 3+ (0-0); ERYTHROBLAST% (NRBC) (M) 4 % (0-0); MICROCYTOSIS 1+ (0-0); MONOCYTES % (M) 7 % (0-11); PLATELET ESTIMATE DECREASED; POIKILOCYTOSIS 3+ (0-0); POLYCHROMASIA 3+ (0-0); REACTIVE LYMPHOCYTES% (M) 2 % (0-0)
--- NOTE | 2017-02-09 10:44 | CONS ---
Date/Time of Note Date/Time of Note DATE: 02/09/17 TIME: 10:41 Assessment/Plan Assessment/Plan Additional Assessment/Plan IMPRESSION: 1. Delirium tremens patient is still shaky unable to stand on his feet and continues to have slurred speech 2. Hepatic encephalopathy. Better patient is now communicating with slurred speech, still confused 3. Alcoholic liver disease. Patient is on prednisolone, total bilirubin is not coming down 4. Pancreatitis. Amylase has come down . Lipase is down 5. Leukocytosis. Persistent most probably related to alcoholic hepatitis and steroid, is slowly coming down 6. Renal insufficiency. Though the urine output is good. Renal function has improved a lot with good urine output. Creatinine is coming down. 7. Pedal edema resolved 8. Thrombocytopenia better 9. Ileus, small bowel follow-through was negative 10. Patient's gastroparesis might be related to uremia better 11. Hypernatremia 12. Spontaneous bacterial peritonitis. Acetic fluid was cloudy, WBC polymorphs where greater than 250 second paracentesis fluid was no more cloudy 13. Hypernatremia Plan Continue 1 more week of prednisolone and then will taper it off it seems patient is not responding to prednisolone. After 1 week we should make arrangement to transfer the patient to tertiary care center continue lactulose and rifaximen for hepatic encephalopathy Discontinue all the antibiotic and observe Alcohol cessation counseled to patient's mother to ask son to stop drinking. We will hold off on feeding for fear of aspiration All medication should be given through NG tube Arrangements should be made to transfer the patient to [facility] for liver transplantation Correction of hypernatremia and reevaluation of the patient's mental status after correction. 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 Consultation Date/Type/Reason Admit Date/Time Jan 02, 2017 at 19:30 Type of Consultation: ID Referring Provider: BRAEDEN VAZQUEZ MD 24 HR Interval Summary Free Text/Dictation Patient is transferred to intensive care unit because of deterioration of his mental condition Subjective hx not possible: pt non-verbal, pt critical Exam/Review of Systems Vital Signs Vitals Vital Signs Date Time Temp Pulse Resp B/P Pulse Ox O2 Delivery O2 Flow Rate FiO2 02/09/17 09:00 78 21 110/64 100 Room Air 02/09/17 08:00 97.0 Intake and Output 02/08/17 02/08/17 02/09/17 15:00 23:00 07:00 Intake Total 200 ml 655 ml Output Total 400 ml 515 ml Balance -200 ml 140 ml Exam Constitutional: alert, oriented, well developed Psych: nl mood/affect, no complaints Head: atraumatic, normocephalic Eyes: EOMI, PERRL, nl conjunctiva, nl lids, nl sclera ENMT: nl external ears & nose, nl lips & teeth, nl nasal mucosa & septum Neck: non-tender, supple Respiratory: clear to auscultation, normal air movement Cardiovascular: nl pulses, regular rate and rhythm Gastrointestinal: nl liver, spleen, non-tender, soft Musculoskeletal: nl extremities to inspection, nl gait and stance Extremities: normal pulses Neurological: THROAT CUTTER II-XII intact, nl mental status, nl speech, nl strength Skin: nl turgor, No rash or lesions Lymph: nl lymph nodes Results Result Diagram: 02/09/17 0400 02/09/17 0400 Results 24 hrs Laboratory Tests Test 02/08/17 10:52 02/08/17 12:30 02/08/17 19:58 02/08/17 22:27 Prothrombin Time 32.9 #H Prothrombin Time Ratio 2.6 INR International Normalized Ratio 3.16 Sodium Level 158 H 151 H Potassium Level 4.4 4.1 Chloride Level 134 H 128 H Carbon Dioxide Level 11 L 10 L Anion Gap 17 H 17 H Blood Urea Nitrogen 82 H 82 H Creatinine 1.85 H 1.87 H Glucose Level 108 269 #H Calcium Level 9.0 8.5 Blood Gas Specimen Source Blood arterial Arterial Blood Date Drawn 02/08/2017 1:40:31 PM Arterial Blood pH (Temp corrected) 7.312 L Arterial Blood pCO2 (Temp correct) 24.5 L Arterial Blood pO2 (Temp corrected) 77.1 L Arterial Blood HCO3 12.1 L Arterial Blood Base Excess -12.7 L Arterial Blood Oxygen Saturation 93.2 L Prateek Test ACCEPTAB Arterial Blood Gas Puncture Site Left Radial Arterial Blood Carboxyhemoglobin 2.7 Arterial Blood Methemoglobin 0.3 Blood Gas A-a O2 Differential 43.3 H Oxyhemoglobin Percent 90.4 L Total Hemoglobin 8.5 L Blood Gas Temperature 37.0 Blood Gas Modality ROOM AIR FiO2 21.0 Blood Gas Notified Whom ALLAD Blood Gas Notified Time 02/08/2017 1:50:22 PM Ammonia 54 H Test 02/09/17 01:04 02/09/17 04:00 Sodium Level 154 H 158 H White Blood Count 49.8 H Red Blood Count 2.06 L Hemoglobin 7.6 L Hematocrit 22.5 L Mean Corpuscular Volume 109.2 H Mean Corpuscular Hemoglobin 36.9 H Mean Corpuscular Hemoglobin Concent 33.8 Red Cell Distribution Width 23.3 H Platelet Count 33 L Mean Platelet Volume Neutrophils % Segmented Neutrophils % (Manual) 83 H Band Neutrophils % (Manual) 5 H Lymphocytes % Lymphocytes % (Manual) 3 L Reactive Lymphocytes % (Manual) 2 H Monocytes % Monocytes % (Manual) 7 Eosinophils % Basophils % Nucleated Red Blood Cells % 4 H Neutrophils # Neutrophils # (Manual) 42.5 H Band Neutrophils # 2.4 H Absolute Lymphocytes (Manual) 1.4 Lymphocytes # Reactive Lymphocytes # 0.9 H Monocytes # Absolute Monocytes (Manual) 3.4 H Eosinophils # Basophils # Nucleated Red Blood Cells # Platelet Estimate DECREASED Platelet Morphology Comment @See below Polychromasia 3+ Poikilocytosis 3+ Anisocytosis 3+ Microcytosis 1+ Macrocytosis 2+ Potassium Level 4.3 Chloride Level 132 H Carbon Dioxide Level 12 L Anion Gap 18 H Blood Urea Nitrogen 89 H Creatinine 1.96 H Glucose Level 107 # Calcium Level 8.9 Phosphorus Level 6.3 H Magnesium Level 2.3 Total Bilirubin 29.1 H Direct Bilirubin 26.50 *H Indirect Bilirubin 2.6 H Aspartate Amino Transf (AST/SGOT) 163 H Alanine Aminotransferase (ALT/SGPT) 85 H Alkaline Phosphatase 561 H Ammonia 47 H Total Protein 5.3 L Albumin 2.1 L Globulin 3.20 Albumin/Globulin Ratio 0.65 Medications Medications Current Medications Ondansetron HCl (Zofran Inj) 4 mg Q6H PRN IV NAUSEA AND/OR VOMITING Last administered on 01/03/17 14:52; Admin Dose 4 MG; Start 01/02/17 at 23:00 IV Flush (NS 10 ml) 10 ml PRN PRN IV IV PROTOCOL; Start 01/05/17 at 18:30 Prednisolone (Prelone (Ped)) 40 mg DAILY PO Last administered on 02/09/17 08: 11; Admin Dose 40 MG; Start 01/12/17 at 09:00 Nystatin (Nystatin Susp) 5 ml QID PO Last administered on 02/09/17 08:11; Admin Dose 5 ML; Start 01/13/17 at 17:00 Glucose (Glutose) 15 gm Q15M PRN PO DECREASED GLUCOSE; Start 01/15/17 at 18:30 Glucose (Glutose) 22.5 gm Q15M PRN PO DECREASED GLUCOSE; Start 01/15/17 at 18: 30 Dextrose (D50w Syringe) 25 ml Q15M PRN IV DECREASED GLUCOSE; Start 01/15/17 at 18:30 Dextrose (D50w Syringe) 50 ml Q15M PRN IV DECREASED GLUCOSE; Start 01/15/17 at 18:30 Glucagon (Glucagen) 1 mg Q15M PRN IM DECREASED GLUCOSE; Start 01/15/17 at 18:30 Glucose (Glutose) 15 gm Q15M PRN BUCCAL DECREASED GLUCOSE; Start 01/15/17 at 18 :30 Folic Acid (Folic Acid) 1 mg DAILY PO Last administered on 02/09/17 08:11; Admin Dose 1 MG; Start 01/26/17 at 09:00 Thiamine HCl (Vitamin B1) 100 mg DAILY PO Last administered on 02/09/17 08:11 ; Admin Dose 100 MG; Start 01/26/17 at 09:00 Multivit/Ca Carb/ B Cmplx/FA/Prenat (Elizabeth-Kaylee) 1 tab DAILY PO Last administered on 02/09/17 08:11; Admin Dose 1 TAB; Start 01/26/17 at 09:00 Lorazepam (Ativan) 0.5 mg Q6H PRN IV AGITATION/ANXIETY Last administered on 08:59; Admin Dose 0.5 MG; Start 01/28/17 at 14:00 Famotidine (Pepcid) 20 mg Q12 PO Last administered on 02/09/17 08:11; Admin Dose 20 MG; Start 01/28/17 at 21:00 Citric Acid/ Sodium Citrate 30 ml 30 ml TID PO Last administered on 02/09/17 08:15; Admin Dose 30 ML; Start 02/08/17 at 13:00 Dextrose (D5W) 1,000 ml @ 100 mls/hr Q10H IV Last administered on 02/08/17 22:18; Admin Dose 75 MLS/HR; Start 02/08/17 at 22:00 LAURA CORDERO MD Feb 09, 2017 10:44
--- NOTE | 2017-02-09 11:28 | CONS ---
Date/Time of Note Date/Time of Note DATE: 02/09/17 TIME: 11:25 Assessment/Plan Assessment/Plan Additional Assessment/Plan Chest x-ray was reviewed from yesterday evening which is essentially clear. Assessment and recommendations; 1. Patient admitted with hepatic encephalopathy due to alcoholic cirrhosis of liver status post extubation, patient was doing better on the medical floor however over the last 24 hours patient's condition has returned for the worse with clinical indicators pointing towards worsening hepatic encephalopathy. 2. Hepatorenal syndrome, with increasing serum creatinine. 3. Status post upper GI bleed. Patient however has maintained stable hematocrit. 4. Status post multiple paracentesis. 5. Anemia and severe thrombocytopenia. 6. Persistent severe hyperbilirubinemia. 7. Hypernatremia. Continue current treatment. If the patient's condition deteriorates he may require to be reintubated. Continue free water replacement. Prognosis appears poor. Consultation Date/Type/Reason Admit Date/Time Jan 02, 2017 at 19:30 Initial Consult Date 01/07/17 Type of Consultation: Pulmonary/critical care Referring Provider: BRAEDEN LUNSFORD MD 24 HR Interval Summary Free Text/Dictation Patient's condition has taken a turn for the worse. Patient now exhibiting poor mental status requiring him to be transferred to ICU for closer monitoring. Patient currently is unresponsive and only moans and groans. General exam; young male, unresponsive, but currently in no distress. Exam/Review of Systems Vital Signs Vitals Vital Signs Date Time Temp Pulse Resp B/P Pulse Ox O2 Delivery O2 Flow Rate FiO2 02/09/17 10:30 77 22 113/66 100 02/09/17 10:00 Room Air 02/09/17 08:00 97.0 Intake and Output 02/08/17 02/08/17 02/09/17 15:00 23:00 07:00 Intake Total 200 ml 655 ml Output Total 400 ml 515 ml Balance -200 ml 140 ml Exam HEENT exam; supple neck, no JVD. No lymphadenopathy. Midline trachea. No thyromegaly. No active oral bleeding seen. Patient does have multiple carious teeth. Patient remains deeply icteric. Chest exam; clear to auscultation. S1-S2 audible, no murmurs. Regular rhythm. Abdomen exam; protuberant. Positive fluid thrill. Bowel sounds are audible. Extremity exam; no peripheral edema. VETERINARY BACTERIOLOGIST exam; patient is currently unresponsive. Results Result Diagram: 02/09/17 0400 02/09/17 0400 Results 24 hrs Laboratory Tests Test 02/08/17 12:30 02/08/17 19:58 02/08/17 22:27 02/09/17 01:04 Blood Gas Specimen Source Blood arterial Arterial Blood Date Drawn 02/08/2017 1:40:31 PM Arterial Blood pH (Temp corrected) 7.312 L Arterial Blood pCO2 (Temp correct) 24.5 L Arterial Blood pO2 (Temp corrected) 77.1 L Arterial Blood HCO3 12.1 L Arterial Blood Base Excess -12.7 L Arterial Blood Oxygen Saturation 93.2 L Prateek Test ACCEPTAB Arterial Blood Gas Puncture Site Left Radial Arterial Blood Carboxyhemoglobin 2.7 Arterial Blood Methemoglobin 0.3 Blood Gas A-a O2 Differential 43.3 H Oxyhemoglobin Percent 90.4 L Total Hemoglobin 8.5 L Blood Gas Temperature 37.0 Blood Gas Modality ROOM AIR FiO2 21.0 Blood Gas Notified Whom JLD Blood Gas Notified Time 02/08/2017 1:50:22 PM Sodium Level 151 H 154 H Potassium Level 4.1 Chloride Level 128 H Carbon Dioxide Level 10 L Anion Gap 17 H Blood Urea Nitrogen 82 H Creatinine 1.87 H Glucose Level 269 #H Calcium Level 8.5 Ammonia 54 H Test 02/09/17 04:00 White Blood Count 49.8 H Red Blood Count 2.06 L Hemoglobin 7.6 L Hematocrit 22.5 L Mean Corpuscular Volume 109.2 H Mean Corpuscular Hemoglobin 36.9 H Mean Corpuscular Hemoglobin Concent 33.8 Red Cell Distribution Width 23.3 H Platelet Count 33 L Mean Platelet Volume Neutrophils % Segmented Neutrophils % (Manual) 83 H Band Neutrophils % (Manual) 5 H Lymphocytes % Lymphocytes % (Manual) 3 L Reactive Lymphocytes % (Manual) 2 H Monocytes % Monocytes % (Manual) 7 Eosinophils % Basophils % Nucleated Red Blood Cells % 4 H Neutrophils # Neutrophils # (Manual) 42.5 H Band Neutrophils # 2.4 H Absolute Lymphocytes (Manual) 1.4 Lymphocytes # Reactive Lymphocytes # 0.9 H Monocytes # Absolute Monocytes (Manual) 3.4 H Eosinophils # Basophils # Nucleated Red Blood Cells # Platelet Estimate DECREASED Platelet Morphology Comment @See below Polychromasia 3+ Poikilocytosis 3+ Anisocytosis 3+ Microcytosis 1+ Macrocytosis 2+ Sodium Level 158 H Potassium Level 4.3 Chloride Level 132 H Carbon Dioxide Level 12 L Anion Gap 18 H Blood Urea Nitrogen 89 H Creatinine 1.96 H Glucose Level 107 # Calcium Level 8.9 Phosphorus Level 6.3 H Magnesium Level 2.3 Total Bilirubin 29.1 H Direct Bilirubin 26.50 *H Indirect Bilirubin 2.6 H Aspartate Amino Transf (AST/SGOT) 163 H Alanine Aminotransferase (ALT/SGPT) 85 H Alkaline Phosphatase 561 H Ammonia 47 H Total Protein 5.3 L Albumin 2.1 L Globulin 3.20 Albumin/Globulin Ratio 0.65 Medications Medications Current Medications Ondansetron HCl (Zofran Inj) 4 mg Q6H PRN IV NAUSEA AND/OR VOMITING Last administered on 01/03/17 14:52; Admin Dose 4 MG; Start 01/02/17 at 23:00 IV Flush (NS 10 ml) 10 ml PRN PRN IV IV PROTOCOL; Start 01/05/17 at 18:30 Prednisolone (Prelone (Ped)) 40 mg DAILY PO Last administered on 02/09/17 08: 11; Admin Dose 40 MG; Start 01/12/17 at 09:00 Nystatin (Nystatin Susp) 5 ml QID PO Last administered on 02/09/17 08:11; Admin Dose 5 ML; Start 01/13/17 at 17:00 Glucose (Glutose) 15 gm Q15M PRN PO DECREASED GLUCOSE; Start 01/15/17 at 18:30 Glucose (Glutose) 22.5 gm Q15M PRN PO DECREASED GLUCOSE; Start 01/15/17 at 18: 30 Dextrose (D50w Syringe) 25 ml Q15M PRN IV DECREASED GLUCOSE; Start 01/15/17 at 18:30 Dextrose (D50w Syringe) 50 ml Q15M PRN IV DECREASED GLUCOSE; Start 01/15/17 at 18:30 Glucagon (Glucagen) 1 mg Q15M PRN IM DECREASED GLUCOSE; Start 01/15/17 at 18:30 Glucose (Glutose) 15 gm Q15M PRN BUCCAL DECREASED GLUCOSE; Start 01/15/17 at 18 :30 Folic Acid (Folic Acid) 1 mg DAILY PO Last administered on 02/09/17 08:11; Admin Dose 1 MG; Start 01/26/17 at 09:00 Thiamine HCl (Vitamin B1) 100 mg DAILY PO Last administered on 02/09/17 08:11 ; Admin Dose 100 MG; Start 01/26/17 at 09:00 Multivit/Ca Carb/ B Cmplx/FA/Prenat (Elizabeth-Kaylee) 1 tab DAILY PO Last administered on 02/09/17 08:11; Admin Dose 1 TAB; Start 01/26/17 at 09:00 Lorazepam (Ativan) 0.5 mg Q6H PRN IV AGITATION/ANXIETY Last administered on 08:59; Admin Dose 0.5 MG; Start 01/28/17 at 14:00 Famotidine (Pepcid) 20 mg Q12 PO Last administered on 02/09/17 08:11; Admin Dose 20 MG; Start 01/28/17 at 21:00 Citric Acid/ Sodium Citrate 30 ml 30 ml TID PO Last administered on 02/09/17 08:15; Admin Dose 30 ML; Start 02/08/17 at 13:00 Dextrose (D5W) 1,000 ml @ 100 mls/hr Q10H IV Last administered on 02/08/17 22:18; Admin Dose 75 MLS/HR; Start 02/08/17 at 22:00 NERI MCKEON Feb 09, 2017 11:28
[2017-02-09] MEDS: DEXTROSE 5% 1,000 ML IV SCH (11:57)
--- NOTE | 2017-02-09 14:48 | PN ---
DATE: 02/09/2017 SUBJECTIVE: The patient was transferred to ICU secondary to acute encephalopathy and hypernatremia. He is lying comfortably in bed. VITAL SIGNS: Afebrile, temperature 97.1, pulse 76, respirations 20, blood pressure 94/52, saturatio n 99 on room air. LABORATORY DATA: WBC 49.8, platelets 33, H and H 7.6 and 22.5. BUN 89, creatinine 1.96. Sodium 15 8. INDWELLINGS: The patient has Carolina, NG tube and PICC line placed on admission. PHYSICAL EXAMINATION: GENERAL: Chronically ill-appearing, wasted, middle-aged man who is in no distress. HEENT: Head atraumatic, normocephalic. Sclerae anicteric. Buccal mucosa dry. NECK: Supple. CHEST: Rise symmetrical. Breath sounds diminished to bases. HEART: S1, S2. ABDOMEN: Distended, soft. Bowel tones hypoactive. EXTREMITIES: With pedal edema, trace. ASSESSMENT: 1. Status post sepsis with shock. 2. Acute alcoholic pancreatitis. 3. End-stage liver disease. 4. Ascites, status post multiple paracenteses, treated with antibiotics for presumable SBP. 5. Anemia and thrombocytopenia. 6. Hyponatremia. 7. Acute kidney injury, possibly hepatorenal syndrome. PLAN: The patient remains hemodynamically stable. He is being followed by multiple consultants. A ntibiotics discontinued 2 days ago. We will observe him off antibiotics. Repeat cultures p.r.n. C ontinue anti-aspiration precautions. Dictated By: ROSALIA BARKER [employer] for MADELAINE PLASENCIA/JACQUELINE Conf#: [id number] DID#: [id number]
[2017-02-09] MEDS ORDERED: SOD CHLORIDE 0.45% 1,000 ML IV SCH (17:00)
[2017-02-09 18:29] LABS: CALCIUM 8.7 mg/dl (8.4-10.2); CREATININE 2.22 mg/dl (0.61-1.24); POTASSIUM 4.4 mmol/L (3.5-5.1)
--- NOTE | 2017-02-09 23:32 | PN ---
Date/Time of Note Date/Time of Note DATE: 02/09/17 TIME: 23:32 Assessment/Plan Lines/Catheters IV Catheter Type (from [facility]): PICC Line Minaya in Place (from [facility]): Yes Assessment/Plan Chief Complaint/Hosp Course 1. Paralytic ileus 2nd acute processes. SBFT negative. resolved; +bowel function -Monitor 2. Acute on chronic alcoholic pancreatitis with peripancreatic fluid -Supportive measures -off all abx -Judicious fluid management -Trend labs -Encourage cessation 3. Acute GI bleed from gastritis and esophageal varices secondary to alcoholism. Stable -Transfuse as needed -Supportive measures: ppi -Correct coagulopathy and platelet dysfunction 4. Anemia secondary to above: h/h stable -As above 5. Leukocytosis, multifactorial with SIRS and steroid therapy, doubt infectious (no bandemia, no fevers, chills, tachycardia); continues to increase -Close monitoring 6. Alcoholic hepatitis with hepatosplenomegaly, ascites; elevated LFT's; s/p multiple paracentesis; possible transfer to tertiary center. -Medical and GI optimization -transfer to tertiary center 7. Chronic alcohol abuse with Delirium Tremens; no tremors -Encourage cessation -Sedation/intubation 8. Subcapsular liver collection possible hematoma versus other -Monitor 9. Electrolyte imbalance; persistent hypernatremia -Correct with replacements and fluid management 10. NICOLAS: -judicious fluids -avoid nephrotoxic meds 11. Atelectasis vs. pna -IS -increase activity-OOB as tolerated; PT 12. AMS: worsened-difficult to arouse -check abg's: supportive measures Thank you. Patient seen and examined in collaboration with Dr. Bob Tristan. Problems: Subjective 24 Hr Interval Summary In ICU care, worsened mentation. Difficult to arouse. Worsening Leukocytosis. No fevers, chills, sob, congested cough, cp, palpitations, bateman, dizziness, n/v/d/ dysuria, change in tele rhythm. Exam/Review of Systems Vital Signs Vitals Vital Signs Date Time Temp Pulse Resp B/P Pulse Ox O2 Delivery O2 Flow Rate FiO2 02/12/17 00:00 80 02/11/17 23:55 20 100 40 02/11/17 22:05 97/54 Mechanical Ventilator 02/11/17 20:00 98.7 Intake and Output 02/11/17 02/11/17 02/12/17 15:00 23:00 07:00 Intake Total 1166.86 ml 400.0 ml Output Total 1035 ml 12 ml Balance 131.86 ml 388.0 ml Exam Free Text/Dictation Constitutional: Confused Not oriented. obtunded Psych: No nl mood/affect Head: atraumatic, normocephalic, No hematomas, No lacerations Eyes: EOMI, PERRL, icteric ENMT: nl external ears & nose, nl lips & teeth. Mucosa pink and dry. icteric Neck: non-tender, supple, No jvd Respiratory: No congested cough, No labored breathing Cardiovascular: No edema, No regular rate and rhythm Gastrointestinal: soft, min-tender, non distended. No rebound or guarding Musculoskeletal: nl extremities to inspection, No joint tenderness; BLE edema Extremities: normal pulses, No calf tenderness, No cyanosis Neurological: Responsive to noxious stimuli Skin: rash or lesions (Jaundice), No diaphoresis, No nl turgor : minaya with luis output (improved; increased amount) Lymph: nl lymph nodes, nontender Results Result Diagram: 02/11/17175802/11/171758 ELIO GIBBONS NP Feb 09, 2017 23:32
[2017-02-10] VITALS (108 sets, daily range): BP systolic 59–128; BP diastolic 24–96; PULSE 32–103; RESP 16–34
[2017-02-10] MEDS: CITRIC ACID/SODIUM CITRATE 15 ML CUP PO SCH ×4 (01:09→22:18)
[2017-02-10] MEDS ORDERED: ATROPINE 1 MG/10 ML SYRINGE ONE (06:23)
[2017-02-10 06:39] LABS: AADO2 Arterial 62.3 mmHg (7.0-24.0); Allen Test ACCEPTAB; Arterial Base Excess -21.9 mmol/L (-3.0-3); Arterial COHb 2.5 % (0.0-3.0); Arterial Fraction of Oxyhgb 58.8 % (93.0-99.0); Arterial HCO3 7.7 mmol/L (22.0-26.0); Arterial Total Hemglobin 7.5 g/dl (12.0-18.0); MODE ROOM AIR
[2017-02-10] MEDS ORDERED: NA BICARBONATE 8.4% 50 ML SYG ONE (06:39)
[2017-02-10] MEDS ORDERED: NA BICARBONATE 8.4% 50 ML SYG IV ONE (06:55)
[2017-02-10] MEDS ORDERED: ETOMIDATE 20 MG INJ ONE (07:00)
[2017-02-10] MEDS ORDERED: NORepinephrine 8MG/250 ML (PMX 250 ML IV SCH (07:00)
[2017-02-10] MEDS ORDERED: ATROPINE 1 MG/10 ML SYRINGE IV ONE (07:00)
[2017-02-10] MEDS ORDERED: NORepinephrine 8MG/250 ML BAG ONE (07:00)
[2017-02-10] MEDS ORDERED: ETOMIDATE 20 MG INJ IV ONE (07:00)
[2017-02-10] MEDS ORDERED: SUCCINYLCHOLINE CHLORIDE 100 MG/5 ML SYG IV ONE ×2 (07:00)
--- NOTE | 2017-02-10 07:17 | QN ---
Documentation Comment Endotracheal Intubation by me: Pre assessment performed. Pre-oxygenation performed with 100% oxygen RSI: Performed w/o complication or hypoxic events. Medications as ordered. Blade: MAC 4 Glidescope ET Tube: 7.5 cm Depth: 22 cm at the lip Intubation confirmed by colorimetric CO2, equal breath sounds, quiet over the stomach. Chest x-ray pending. URSULA CHAWLA MD Feb 10, 2017 07:17
--- NOTE | 2017-02-10 07:31 | RADRPT ---
PROCEDURE: XR Chest. CLINICAL INDICATION: Shortness of breath TECHNIQUE: Portable single view of the chest COMPARISON: 02/08/2017 FINDINGS: There has been placement of an endotracheal tube which appears in good position. Left PICC line kip ins in place. Nasogastric tube is in good position in the distal stomach. Reduced lung volumes. Slig htly increased alveolar opacity of both lung estrada diffusely with slight peripheral sparing. This i s minimally increased. No large effusion. Top normal pulmonary vascularity. IMPRESSION: New endotracheal tube in good position. Perhaps slight increase in bilateral lung infiltrates or alcides ma. RPTAT: HLBE Physician Carmelita Date Time Electronically viewed and signed by Shala Feliciano Physician on 02/10/2017 07:21 LE/
[2017-02-10 07:42] LABS: AADO2 Arterial 417.7 mmHg (7.0-24.0); Allen Test ACCEPTAB; Arterial Base Excess -18.5 mmol/L (-3.0-3); Arterial COHb 2.4 % (0.0-3.0); Arterial Fraction of Oxyhgb 96.6 % (93.0-99.0); Arterial HCO3 9.5 mmol/L (22.0-26.0); Arterial MetHb 0.7 % (0.0-1.5); Arterial Total Hemglobin 7.3 g/dl (12.0-18.0); Blood Gas Low PEEP Setting 0 cmH2O; MODE VENT - AC
[2017-02-10] MEDS ORDERED: SODIUM BICARBONATE (IV ADD) 50 MEQ in DEXTROSE 5% 1,000 ML IV STA (07:52)
[2017-02-10] MEDS ORDERED: NA BICARBONATE 8.4% 50 ML SYG IV STA ×3 (07:52→15:03)
--- NOTE | 2017-02-10 08:37 | PN ---
Date/Time of Note Date/Time of Note DATE: 02/10/17 TIME: 08:37 Assessment/Plan VTE Prophylaxis VTE Prophylaxis Intervention: contraindicated Lines/Catheters IV Catheter Type (from [facility]rs[facility]): PICC Line Central line still needed: Yes Urinary Cath still in place: Yes Reason Cath still needed: urinary retention Assessment/Plan Chief Complaint/Hosp Course 36 y/o with # Respiratory failure s/p Intubation this am # Shock now on Levophed 8 # AMS now could be due to metabolic due to hypernatremia/uremia /hepatic encephalopathy which could be due to dehydration/diarhhoea # Elevated bun/cr ratio with worsening acidosis could be due dehydration/ diarrhoea # Non gap worsening Acidosis could be due to Renal failure/diarrhoea # NICOLAS likely Oliguric ATN vs HRS > Cr 1.85>1.9 now in shock # Acute on chronic liver failure with alcholic hepatitis due to Etoh abuse with elevated INR, Hyperbilirubenemia, low platelets, elevated bilirubin unable to respond to Prednisolone x Trental for 1 month # Hepatic encephalopathy # hx ETOH withdrawal on Ativan/librium tapered off # hx ETOH pancreatitis with Lipase 7690> trending down to 2000> trended down siginificantly # hx Leukocytosis now likely to steroids/Alcholic Hepatitis # hx Hypoxic Respiratory failure s/p Intubation now extubated on 01/15 # Thrombocytopenia likely secondary to Cirrhosis # Anemia likely hemodilutional : no evidence of bleeding s/p EGD with gastritis and gastroparesis on PPI and Reglan # s/P EGD with gastritis and gastroparesis on Protonix and Reglan # Ileus s/p Small bowel follow thru which is negative, f/u Surgery # Ascites s/p paracentesis with +SBP s/p repeat paracentesis on 02/02 Plan - Repeat ABG shows PH 7.10//01/14; Bicarb gtt started - Will repeat ABG in 3 hrs - if acidosis does not improve will plan for HD however will likely need CRRT due to Low BP - Vent management per Pulmonary - Check PT/INR - Check BMP q 6 hr - NG tube - Titrate Levophed - Will likely restart Abx per I,D - Will start tapering off prednsione per GI by 02/11 - Avoid Ativan/morphine - Since pt is on pressor ( Levophed 8), reintubated this am, liver enzymes ( Bilirubin 26 and Elevated AST/ALT and ALK pHOS and INR 2.6 ) still high, pt failed to respond to medical treatment with ( Prednisolone/trental for 1 month) and will require CRRT( likely if does not respond to bicarb gtt ) which is not available in this hospital, pt will need transfer to Higher level of care especially Liver Transplant center Problems: Subjective 24 Hr Interval Summary Free Text/Dictation Pt had episode of bradycardia and hypotension and had agonal breathing at 6.30 am this am PH was 7.00 .Pt was intubated this am On Levophed 8 UOPis 30 cc/hr Exam/Review of Systems Vital Signs Vitals Vital Signs Date Time Temp Pulse Resp B/P Pulse Ox O2 Delivery O2 Flow Rate FiO2 02/10/17 07:00 95 16 128/45 100 02/10/17 06:46 Mechanical Ventilator 02/10/17 04:00 97.4 Intake and Output 02/09/17 02/09/17 02/10/17 15:00 23:00 07:00 Intake Total 520 ml 360 ml 480 ml Output Total 250 ml 155 ml 160 ml Balance 270 ml 205 ml 320 ml Exam xam GNERAL: Intubated , not on any sedation HEENT: Head atraumatic, normocephalic. Sclerae icteric . Buccal mucosa dry. NECK: Supple. CHEST: Rise symmetrical. Breath sounds diminished to bases. HEART: S1, S2. ABDOMEN: Distended, soft. Bowel tones present.ascites+ EXTREMITIES: With trace edema. [place] in place PICC line Results Result Diagram: 02/09/17 0400 02/10/17 0435 Results 24 hrs Laboratory Tests Test 02/09/17 11:57 02/09/17 17:48 02/10/17 00:50 02/10/17 04:35 Sodium Level 149 H 151 H 153 H 153 H Potassium Level 4.4 Chloride Level 126 H Carbon Dioxide Level 11 L Anion Gap 18 H Blood Urea Nitrogen 94 H Creatinine 2.22 H Glucose Level 167 Calcium Level 8.7 Test 02/10/17 06:29 02/10/17 07:15 Blood Gas Specimen Source Blood arterial Blood arterial Arterial Blood Date Drawn 02/10/2017 6:25:04 AM 02/10/2017 7:20:34 AM Arterial Blood pH (Temp corrected) 7.002 *L 7.109 *L Arterial Blood pCO2 (Temp correct) 31.6 L 30.5 L Arterial Blood pO2 (Temp corrected) 49.6 *L 264.8 H Arterial Blood HCO3 7.7 *L 9.5 *L Arterial Blood Base Excess -21.9 L -18.5 L Arterial Blood Oxygen Saturation 60.9 L 99.7 H Prateek Test ACCEPTAB ACCEPTAB Arterial Blood Gas Puncture Site Right Radial Right Radial Arterial Blood Carboxyhemoglobin 2.5 2.4 Arterial Blood Methemoglobin 1.0 0.7 Blood Gas A-a O2 Differential 62.3 H 417.7 H Oxyhemoglobin Percent 58.8 L 96.6 Total Hemoglobin 7.5 L 7.3 L Blood Gas Temperature 37.0 37.0 Blood Gas Actual Respiration Rate 32 20 Blood Gas Modality ROOM AIR VENT - AC FiO2 21.0 100.0 Blood Gas Critical Value Read Back Dayanara CABEZAS R.N., RN Blood Gas Notified Whom AUGUSTINE CONNELL Blood Gas Notified Time 02/10/2017 6:37:01 AM 02/10/2017 7:41:56 AM Blood Gas Respiration Rate 14.0 Blood Gas Tidal Volume 550.0 Blood Gas Low PEEP Setting 0 Medications Medications Current Medications Ondansetron HCl (Zofran Inj) 4 mg Q6H PRN IV NAUSEA AND/OR VOMITING Last administered on 01/03/17 14:52; Admin Dose 4 MG; Start 01/02/17 at 23:00 IV Flush (NS 10 ml) 10 ml PRN PRN IV IV PROTOCOL; Start 01/05/17 at 18:30 Prednisolone (Prelone (Ped)) 40 mg DAILY PO Last administered on 02/09/17 08: 11; Admin Dose 40 MG; Start 01/12/17 at 09:00 Nystatin (Nystatin Susp) 5 ml QID PO Last administered on 02/09/17 22:06; Admin Dose 5 ML; Start 01/13/17 at 17:00 Glucose (Glutose) 15 gm Q15M PRN PO DECREASED GLUCOSE; Start 01/15/17 at 18:30 Glucose (Glutose) 22.5 gm Q15M PRN PO DECREASED GLUCOSE; Start 01/15/17 at 18: 30 Dextrose (D50w Syringe) 25 ml Q15M PRN IV DECREASED GLUCOSE; Start 01/15/17 at 18:30 Dextrose (D50w Syringe) 50 ml Q15M PRN IV DECREASED GLUCOSE; Start 01/15/17 at 18:30 Glucagon (Glucagen) 1 mg Q15M PRN IM DECREASED GLUCOSE; Start 01/15/17 at 18:30 Glucose (Glutose) 15 gm Q15M PRN BUCCAL DECREASED GLUCOSE; Start 01/15/17 at 18 :30 Folic Acid (Folic Acid) 1 mg DAILY PO Last administered on 02/09/17 08:11; Admin Dose 1 MG; Start 01/26/17 at 09:00 Thiamine HCl (Vitamin B1) 100 mg DAILY PO Last administered on 02/09/17 08:11 ; Admin Dose 100 MG; Start 01/26/17 at 09:00 Multivit/Ca Carb/ B Cmplx/FA/Prenat (Elizabeth-Kaylee) 1 tab DAILY PO Last administered on 02/09/17 08:11; Admin Dose 1 TAB; Start 01/26/17 at 09:00 Lorazepam (Ativan) 0.5 mg Q6H PRN IV AGITATION/ANXIETY Last administered on 08:59; Admin Dose 0.5 MG; Start 01/28/17 at 14:00 Famotidine 20 mg 20 mg Q12 PO Last administered on 02/09/17 22:05; Admin Dose 20 MG; Start 01/28/17 at 21:00 Sodium Chloride (1/2 NS) 1,000 ml @ 60 mls/hr [id number] IV Last administered on 02/09/17 17:34; Admin Dose 60 MLS/HR; Start 02/09/17 at 17:00 Citric Acid/ Sodium Citrate 30 ml 30 ml TID PO Last administered on 02/10/17 01:09; Admin Dose 30 ML; Start 02/09/17 at 23:45 Norepinephrine 250 ml @ 1.875 mls/ hr TITRATE IV Last administered on 07:29; Admin Dose 7.491 MLS/HR; Start 02/10/17 at 07:00; Stop 02/10/17 at 11:59 Norepinephrine/ Dextrose (Levophed/D5W) 500 ml @ 1.87 mls/hr TITRATE IV ; Start 02/10/17 at 12:00 BRAEDEN LUNSFORD MD Feb 10, 2017 08:37
[2017-02-10] MEDS: FOLIC ACID 1 MG TAB PO SCH (08:59)
[2017-02-10] MEDS: FAMOTIDINE 20 MG TAB PO SCH ×2 (08:59→22:25)
[2017-02-10] MEDS: predniSOLONE (3 MG/ML PO SYG) PO SCH (08:59)
[2017-02-10] MEDS: MULTIVIT/CA CARB/B CMPLX/FA TAB PO SCH (08:59)
[2017-02-10] MEDS ORDERED: CITRIC ACID/SODIUM CITRATE 15 ML CUP PO SCH (09:00)
[2017-02-10] MEDS: THIAMINE 100 MG TAB PO SCH (09:00)
[2017-02-10] MEDS: BALSAM PERU/CASTOR OIL 60 GM TUBE TOP SCH ×2 (09:00→22:18)
[2017-02-10] MEDS ORDERED: VANCOMYCIN IV PER PHARMACY XX SCH (09:30)
--- NOTE | 2017-02-10 09:48 | CONS ---
Date/Time of Note Date/Time of Note DATE: 02/10/17 TIME: 09:44 Assessment/Plan Assessment/Plan Additional Assessment/Plan Chest x-ray was reviewed from today which is essentially unremarkable. Current ventilator settings are AC of 14, tidal volume 550, PEEP of 5, 70% FiO2. Patient is on Levophed at 8 mics per minute. Assessment and recommendations; 1. Patient admitted with severe hepatic enteropathy due to alcoholic liver disease, patient has had a very prolonged stay in the hospital. Patient was doing fairly well until 48 hours ago when he again exhibited profound encephalopathy. 2. Status post reintubation early this morning. 3. Hepatorenal syndrome. 4. Recurrent ascites, status post 2 paracentesis. Abdomen exam however soft today and not indicative of any significant large ascites. 5. Anemia. 6. Status post upper GI bleed. 7. Anemia and thrombocytopenia. 8. Persistent severe leukocytosis. 9. Subacute bacterial peritonitis. 10. Severe metabolic acidosis. Continue supportive care. Ventilator settings have been adjusted. Further recommendations to be done once labs from this morning are available. Overall prognosis is appearing very poor. Patient currently awaiting transfer to tertiary care center. I did have a detailed discussion with the patient's mother at bedside and answered all her questions. 35 minutes of critical care time was spent evaluating the patient. Consultation Date/Type/Reason Admit Date/Time Jan 02, 2017 at 19:30 Initial Consult Date 01/07/17 Type of Consultation: Pulmonary/critical care Referring Provider: BRAEDEN LUNSFORD MD 24 HR Interval Summary Free Text/Dictation Patient's condition is critical. Had to be intubated early this morning for bradycardia and increasingly altered mental status. General exam; young male, orally intubated, currently unresponsive. Exam/Review of Systems Vital Signs Vitals Vital Signs Date Time Temp Pulse Resp B/P Pulse Ox O2 Delivery O2 Flow Rate FiO2 02/10/17 09:40 94 26 103/46 100 02/10/17 09:00 Mechanical Ventilator 02/10/17 08:00 97.5 Intake and Output 02/09/17 02/09/17 02/10/17 15:00 23:00 07:00 Intake Total 520 ml 360 ml 480 ml Output Total 250 ml 155 ml 160 ml Balance 270 ml 205 ml 320 ml Exam HEENT exam; supple neck, no JVD no lymphadenopathy. Midline trachea. No thyromegaly. Patient remains deeply icteric. Has multiple carious teeth. No overt oral bleeding seen. Chest exam; clear to auscultation. S1-S2 audible, no murmurs. Regular rhythm. Abdomen exam; soft, bowel sounds are absent. No organomegaly felt. Positive fluid thrill. Extremity exam; no peripheral edema. ROOF DESIGNER exam; patient is completely unresponsive. Results Result Diagram: 02/09/17 0400 02/10/17 0435 Results 24 hrs Laboratory Tests Test 02/09/17 11:57 02/09/17 17:48 02/10/17 00:50 02/10/17 04:35 Sodium Level 149 H 151 H 153 H 153 H Potassium Level 4.4 Chloride Level 126 H Carbon Dioxide Level 11 L Anion Gap 18 H Blood Urea Nitrogen 94 H Creatinine 2.22 H Glucose Level 167 Calcium Level 8.7 Test 02/10/17 06:29 02/10/17 07:15 02/10/17 09:08 Blood Gas Specimen Source Blood arterial Blood arterial Arterial Blood Date Drawn 02/10/2017 6:25:04 AM 02/10/2017 7:20:34 AM Arterial Blood pH (Temp corrected) 7.002 *L 7.109 *L Arterial Blood pCO2 (Temp correct) 31.6 L 30.5 L Arterial Blood pO2 (Temp corrected) 49.6 *L 264.8 H Arterial Blood HCO3 7.7 *L 9.5 *L Arterial Blood Base Excess -21.9 L -18.5 L Arterial Blood Oxygen Saturation 60.9 L 99.7 H Prateek Test ACCEPTAB ACCEPTAB Arterial Blood Gas Puncture Site Right Radial Right Radial Arterial Blood Carboxyhemoglobin 2.5 2.4 Arterial Blood Methemoglobin 1.0 0.7 Blood Gas A-a O2 Differential 62.3 H 417.7 H Oxyhemoglobin Percent 58.8 L 96.6 Total Hemoglobin 7.5 L 7.3 L Blood Gas Temperature 37.0 37.0 Blood Gas Actual Respiration Rate 32 20 Blood Gas Modality ROOM AIR VENT - AC FiO2 21.0 100.0 Blood Gas Critical Value Read Back Dayanara CABEZAS R.N. RN Blood Gas Notified Whom AUGUSTINE CONNELL Blood Gas Notified Time 02/10/2017 6:37:01 AM 02/10/2017 7:41:56 AM Blood Gas Respiration Rate 14.0 Blood Gas Tidal Volume 550.0 Blood Gas Low PEEP Setting 0 White Blood Count Pending Red Blood Count Pending Hemoglobin Pending Hematocrit Pending Mean Corpuscular Volume Pending Mean Corpuscular Hemoglobin Pending Mean Corpuscular Hemoglobin Concent Pending Red Cell Distribution Width Pending Platelet Count Pending Mean Platelet Volume Pending Medications Medications Current Medications Ondansetron HCl (Zofran Inj) 4 mg Q6H PRN IV NAUSEA AND/OR VOMITING Last administered on 01/03/17 14:52; Admin Dose 4 MG; Start 01/02/17 at 23:00 IV Flush (NS 10 ml) 10 ml PRN PRN IV IV PROTOCOL; Start 01/05/17 at 18:30 Prednisolone (Prelone (Ped)) 40 mg DAILY PO Last administered on 02/10/17 08: 59; Admin Dose 40 MG; Start 01/12/17 at 09:00 Nystatin (Nystatin Susp) 5 ml QID PO Last administered on 02/09/17 22:06; Admin Dose 5 ML; Start 01/13/17 at 17:00 Glucose (Glutose) 15 gm Q15M PRN PO DECREASED GLUCOSE; Start 01/15/17 at 18:30 Glucose (Glutose) 22.5 gm Q15M PRN PO DECREASED GLUCOSE; Start 01/15/17 at 18: 30 Dextrose (D50w Syringe) 25 ml Q15M PRN IV DECREASED GLUCOSE; Start 01/15/17 at 18:30 Dextrose (D50w Syringe) 50 ml Q15M PRN IV DECREASED GLUCOSE; Start 01/15/17 at 18:30 Glucagon (Glucagen) 1 mg Q15M PRN IM DECREASED GLUCOSE; Start 01/15/17 at 18:30 Glucose (Glutose) 15 gm Q15M PRN BUCCAL DECREASED GLUCOSE; Start 01/15/17 at 18 :30 Folic Acid (Folic Acid) 1 mg DAILY PO Last administered on 02/10/17 08:59; Admin Dose 1 MG; Start 01/26/17 at 09:00 Thiamine HCl (Vitamin B1) 100 mg DAILY PO Last administered on 02/09/17 08:11 ; Admin Dose 100 MG; Start 01/26/17 at 09:00 Multivit/Ca Carb/ B Cmplx/FA/Prenat (Elizabeth-Kaylee) 1 tab DAILY PO Last administered on 02/10/17 08:59; Admin Dose 1 TAB; Start 01/26/17 at 09:00 Lorazepam (Ativan) 0.5 mg Q6H PRN IV AGITATION/ANXIETY Last administered on 08:59; Admin Dose 0.5 MG; Start 01/28/17 at 14:00 Famotidine 20 mg 20 mg Q12 PO Last administered on 02/10/17 08:59; Admin Dose 20 MG; Start 01/28/17 at 21:00 Sodium Chloride (1/2 NS) 1,000 ml @ 60 mls/hr [id number] IV Last administered on 02/09/17 17:34; Admin Dose 60 MLS/HR; Start 02/09/17 at 17:00 Citric Acid/ Sodium Citrate 30 ml 30 ml TID PO Last administered on 02/10/17 08:59; Admin Dose 30 ML; Start 02/09/17 at 23:45 Norepinephrine 250 ml @ 1.875 mls/ hr TITRATE IV Last administered on 07:29; Admin Dose 7.491 MLS/HR; Start 02/10/17 at 07:00; Stop 02/10/17 at 11:59 Norepinephrine 16 mg/Dextrose 500 ml @ 1.87 mls/hr TITRATE IV ; Start at 12:00 Meropenem/Sodium Chloride (Merrem 1 Gm/50 ml (Pmx)) 50 ml @ 100 mls/hr Q12H IVPB ; Start 02/10/17 at 09:30 NERI MCKEON Feb 10, 2017 09:48
[2017-02-10 09:54] LABS: ABNORMAL IP MESSAGE 1; HEMATOCRIT 19.1 % (42.0-52.0); MEAN CORPUSCULAR HEMOGLOBIN 35.5 pg (29.0-33.0); MEAN CORPUSCULAR HGB CONC 31.4 g/dl (32.0-37.0); NUCLEATED RED BLOOD CELLS% 14.3 /100WBC (0.0-0.0); POSITIVE DIFF @See below; RED BLOOD COUNT 1.69 10^6/ul (4.70-6.10); RED CELL DISTRIBUTION WIDTH 24.3 % (11.5-14.5); WHITE BLOOD COUNT 41.9 10^3/ul (4.8-10.8)
[2017-02-10 09:56] LABS: PLATELET COUNT 34 10^3/UL (140-415)
[2017-02-10 09:58] LABS: INR 5.86; PROTIME 53.7 Sec (12.2-14.2); PT RATIO 4.2
[2017-02-10 09:59] LABS: ALBUMIN 1.7 g/dl (3.3-4.9); ALBUMIN/GLOBULIN RATIO 0.68; BILIRUBIN,INDIRECT 2.3 mg/dl (0-1.1); BILIRUBIN,TOTAL 23.1 mg/dl (0.2-1.3); CALCIUM 7.5 mg/dl (8.4-10.2); CREATININE 2.51 mg/dl (0.61-1.24); POTASSIUM 4.6 mmol/L (3.5-5.1); TOTAL PROTEIN 4.2 g/dl (6.1-8.1)
[2017-02-10 10:04] LABS: BILIRUBIN,DIRECT 20.8 mg/dl (0.00-0.20)
[2017-02-10 10:39] LABS: AADO2 Arterial 152.9 mmHg (7.0-24.0); Allen Test ACCEPTAB; Arterial Base Excess -16.2 mmol/L (-3.0-3); Arterial HCO3 9.7 mmol/L (22.0-26.0); Arterial MetHb 0.7 % (0.0-1.5); Arterial Total Hemglobin 7.1 g/dl (12.0-18.0); MODE VENT - AC
[2017-02-10] MEDS: MEROPENEM 1 GM/50ML(PMX) 50 ML IVPB SCH ×2 (10:40→22:25)
--- NOTE | 2017-02-10 11:23 | PN ---
Date/Time of Note Date/Time of Note DATE: 02/10/17 TIME: 11:11 Assessment/Plan Lines/Catheters IV Catheter Type (from [facility]): PICC Line Minaya in Place (from [facility]): Yes Assessment/Plan Chief Complaint/Hosp Course 1. Acute on chronic alcoholic pancreatitis with peripancreatic fluid -Supportive measures -Judicious fluid management -Trend labs -Encourage alcohol cessation 2. ?Sepsis (ddx: pna, aspiration, abdominal, urine, blood, other) -supportive -abx -cxs 3. Acute GI bleed from gastritis and esophageal varices secondary to alcoholism. Stable -Transfuse as needed -Supportive measures: ppi -Correct coagulopathy and platelet dysfunction 4. Anemia secondary to above: h/h stable -As above 5. Leukocytosis, multifactorial with SIRS and steroid therapy -Close monitoring -follow ascitic fluid studies 6. Alcoholic hepatitis with hepatosplenomegaly, ascites; elevated LFT's; s/p multiple paracentesis; possible transfer to tertiary center. -Medical and GI optimization -transfer to tertiary center 7. Chronic alcohol abuse with Delirium Tremens; no tremors -Encourage cessation -Sedation/intubation 8. Subcapsular liver collection possible hematoma versus other -Monitor 9. Electrolyte imbalance; persistent hypernatremia -Correct with replacements and fluid management 10. NICOLAS: -judicious fluids -avoid nephrotoxic meds 11. Atelectasis vs. pna -IS -increase activity-OOB as tolerated; PT 12. Paralytic ileus 2nd acute processes. SBFT negative. resolved; +bowel function -Monitor Thank you, Problems: Subjective 24 Hr Interval Summary Worsening mental status, decreased respiratory function, bradycardia, hypotension, and reintubated in ICU on pressor currently. CXR with worsening infiltrates. Leukocytosis increasing. No fevers, chills, sob, congested cough, cp, palpitations, bateman, dizziness, n/v/d/dysuria. Exam/Review of Systems Vital Signs Vitals Vital Signs Date Time Temp Pulse Resp B/P Pulse Ox O2 Delivery O2 Flow Rate FiO2 02/10/17 10:05 95 22 100 40 02/10/17 09:40 103/46 02/10/17 09:00 Mechanical Ventilator 02/10/17 08:00 97.5 Intake and Output 02/09/17 02/09/17 02/10/17 15:00 23:00 07:00 Intake Total 520 ml 360 ml 480 ml Output Total 250 ml 155 ml 160 ml Balance 270 ml 205 ml 320 ml Exam Free Text/Dictation Constitutional: Not oriented, sedated on vent Psych: No nl mood/affect Head: atraumatic, normocephalic, No hematomas, No lacerations Eyes: EOMI, PERRL, icteric ENMT: nl external ears & nose, nl lips & teeth. Mucosa pink and dry. Icteric Neck: non-tender, supple, No jvd Respiratory: No congested cough, No labored breathing Cardiovascular: No edema, No regular rate and rhythm Gastrointestinal: soft, non tender, mod distended. No rebound, rigidity, nor guarding Musculoskeletal: nl extremities to inspection, No joint tenderness; BLE edema Extremities: normal pulses, No calf tenderness, No cyanosis Neurological: Responsive Skin: rash or lesions (Jaundice), No diaphoresis, No nl turgor : minaya with luis output Lymph: nl lymph nodes, nontender Results Result Diagram: 02/10/17 0908 02/10/17 0908 PETER TAMEZ MD Feb 10, 2017 11:23
[2017-02-10] MEDS ORDERED: ALBUMIN HUMAN 25% 100 ML IV ONE (11:30)
[2017-02-10] MEDS ORDERED: VANCOMYCIN 1.75 GM in DEXTROSE 5% 500 ML IVPB SCH (12:00)
--- NOTE | 2017-02-10 12:04 | CONS ---
Date/Time of Note Date/Time of Note DATE: 02/10/17 TIME: 11:59 Consult Date/Type/Reason Admit Date/Time Jan 02, 2017 at 19:30 Initial Consult Date 01/07/17 Type of Consultation: Pulmonary/critical care Ordering Provider: BRAEDEN LUNSFORD MD Objective Vital Signs Date Time Temp Pulse Resp B/P Pulse Ox O2 Delivery O2 Flow Rate FiO2 02/10/17 11:54 89 25 100 30 02/10/17 11:30 110/35 02/10/17 11:00 Mechanical Ventilator 02/10/17 08:00 97.5 Intake and Output 02/09/17 02/09/17 02/10/17 15:00 23:00 07:00 Intake Total 520 ml 360 ml 480 ml Output Total 250 ml 155 ml 160 ml Balance 270 ml 205 ml 320 ml Results/Medications Result Diagram: 02/10/17 0908 02/10/17 0908 Results 24 hrs Laboratory Tests Test 02/09/17 17:48 02/10/17 00:50 02/10/17 04:35 02/10/17 06:29 Sodium Level 151 H 153 H 153 H Potassium Level 4.4 Chloride Level 126 H Carbon Dioxide Level 11 L Anion Gap 18 H Blood Urea Nitrogen 94 H Creatinine 2.22 H Glucose Level 167 Calcium Level 8.7 Blood Gas Specimen Source Blood arterial Arterial Blood Date Drawn 02/10/2017 6:25:04 AM Arterial Blood pH (Temp corrected) 7.002 *L Arterial Blood pCO2 (Temp correct) 31.6 L Arterial Blood pO2 (Temp corrected) 49.6 *L Arterial Blood HCO3 7.7 *L Arterial Blood Base Excess -21.9 L Arterial Blood Oxygen Saturation 60.9 L Prateek Test ACCEPTAB Arterial Blood Gas Puncture Site Right Radial Arterial Blood Carboxyhemoglobin 2.5 Arterial Blood Methemoglobin 1.0 Blood Gas A-a O2 Differential 62.3 H Oxyhemoglobin Percent 58.8 L Total Hemoglobin 7.5 L Blood Gas Temperature 37.0 Blood Gas Actual Respiration Rate 32 Blood Gas Modality ROOM AIR FiO2 21.0 Blood Gas Critical Value Read Back RAULITOK. R.NShaniqua Blood Gas Notified Ciara BRADSHAW RCP Blood Gas Notified Time 02/10/2017 6:37:01 AM Test 02/10/17 07:15 02/10/17 09:08 02/10/17 10:00 Blood Gas Specimen Source Blood arterial Blood arterial Arterial Blood Date Drawn 02/10/2017 7:20:34 AM 02/10/2017 10:32:00 AM Arterial Blood pH (Temp corrected) 7.109 *L 7.239 *L Arterial Blood pCO2 (Temp correct) 30.5 L 23.3 L Arterial Blood pO2 (Temp corrected) 264.8 H 105.5 H Arterial Blood HCO3 9.5 *L 9.7 *L Arterial Blood Base Excess -18.5 L -16.2 L Arterial Blood Oxygen Saturation 99.7 H 96.6 Prateek Test ACCEPTAB ACCEPTAB Arterial Blood Gas Puncture Site Right Radial Right Radial Arterial Blood Carboxyhemoglobin 2.4 2.0 Arterial Blood Methemoglobin 0.7 0.7 Blood Gas A-a O2 Differential 417.7 H 152.9 H Oxyhemoglobin Percent 96.6 94.0 Total Hemoglobin 7.3 L 7.1 L Blood Gas Temperature 37.0 37.0 Blood Gas Respiration Rate 14.0 14.0 Blood Gas Actual Respiration Rate 20 22 Blood Gas Modality VENT - AC VENT - AC FiO2 100.0 40.0 Blood Gas Tidal Volume 550.0 550.0 Blood Gas Low PEEP Setting 0 5.0 Blood Gas Critical Value Read Back M LOUIS RN Lindy BONNER RN Blood Gas Notified Whom ALLAD SS Blood Gas Notified Time 02/10/2017 7:41:56 AM 02/10/2017 10:39:00 AM White Blood Count 41.9 H Red Blood Count 1.69 L Hemoglobin 6.0 #*L Hematocrit 19.1 L Mean Corpuscular Volume 113.0 H Mean Corpuscular Hemoglobin 35.5 H Mean Corpuscular Hemoglobin Concent 31.4 L Red Cell Distribution Width 24.3 H Platelet Count 34 L Mean Platelet Volume Neutrophils % Lymphocytes % Monocytes % Eosinophils % Basophils % Nucleated Red Blood Cells % 14.3 H Neutrophils # Lymphocytes # Monocytes # Eosinophils # Basophils # Nucleated Red Blood Cells # Prothrombin Time 53.7 #H Prothrombin Time Ratio 4.2 INR International Normalized Ratio 5.86 Sodium Level 150 H Potassium Level 4.6 Chloride Level 122 H Carbon Dioxide Level 12 L Anion Gap 21 H Blood Urea Nitrogen 94 H Creatinine 2.51 H Glucose Level 235 H Calcium Level 7.5 L Total Bilirubin 23.1 #H Direct Bilirubin 20.80 *H Indirect Bilirubin 2.3 H Aspartate Amino Transf (AST/SGOT) 387 #H Alanine Aminotransferase (ALT/SGPT) 104 H Alkaline Phosphatase 495 H Lactate Dehydrogenase 1653 H Total Protein 4.2 #L Albumin 1.7 L Globulin 2.50 Albumin/Globulin Ratio 0.68 Medications Current Medications Ondansetron HCl (Zofran Inj) 4 mg Q6H PRN IV NAUSEA AND/OR VOMITING Last administered on 01/03/17 14:52; Admin Dose 4 MG; Start 01/02/17 at 23:00 IV Flush (NS 10 ml) 10 ml PRN PRN IV IV PROTOCOL; Start 01/05/17 at 18:30 Prednisolone (Prelone (Ped)) 40 mg DAILY PO Last administered on 02/10/17 08: 59; Admin Dose 40 MG; Start 01/12/17 at 09:00 Nystatin (Nystatin Susp) 5 ml QID PO Last administered on 02/09/17 22:06; Admin Dose 5 ML; Start 01/13/17 at 17:00 Glucose (Glutose) 15 gm Q15M PRN PO DECREASED GLUCOSE; Start 01/15/17 at 18:30 Glucose (Glutose) 22.5 gm Q15M PRN PO DECREASED GLUCOSE; Start 01/15/17 at 18: 30 Dextrose (D50w Syringe) 25 ml Q15M PRN IV DECREASED GLUCOSE; Start 01/15/17 at 18:30 Dextrose (D50w Syringe) 50 ml Q15M PRN IV DECREASED GLUCOSE; Start 01/15/17 at 18:30 Glucagon (Glucagen) 1 mg Q15M PRN IM DECREASED GLUCOSE; Start 01/15/17 at 18:30 Glucose (Glutose) 15 gm Q15M PRN BUCCAL DECREASED GLUCOSE; Start 01/15/17 at 18 :30 Folic Acid (Folic Acid) 1 mg DAILY PO Last administered on 02/10/17 08:59; Admin Dose 1 MG; Start 01/26/17 at 09:00 Thiamine HCl (Vitamin B1) 100 mg DAILY PO Last administered on 02/10/17 09:00 ; Admin Dose 100 MG; Start 01/26/17 at 09:00 Multivit/Ca Carb/ B Cmplx/FA/Prenat (Elizabeth-Kaylee) 1 tab DAILY PO Last administered on 02/10/17 08:59; Admin Dose 1 TAB; Start 01/26/17 at 09:00 Lorazepam (Ativan) 0.5 mg Q6H PRN IV AGITATION/ANXIETY Last administered on 08:59; Admin Dose 0.5 MG; Start 01/28/17 at 14:00 Famotidine (Pepcid) 20 mg Q12 PO Last administered on 02/10/17 08:59; Admin Dose 20 MG; Start 01/28/17 at 21:00 Citric Acid/ Sodium Citrate 30 ml 30 ml TID PO Last administered on 02/10/17 08:59; Admin Dose 30 ML; Start 02/09/17 at 23:45 Norepinephrine 250 ml @ 1.875 mls/ hr TITRATE IV Last administered on 07:29; Admin Dose 7.491 MLS/HR; Start 02/10/17 at 07:00; Stop 02/10/17 at 11:59 Norepinephrine 16 mg/Dextrose 500 ml @ 1.87 mls/hr TITRATE IV ; Start at 12:00 Meropenem/Sodium Chloride 50 ml @ 100 mls/hr Q12H IVPB Last administered on 10:40; Admin Dose 100 MLS/HR; Start 02/10/17 at 09:30 Vancomycin HCl 1.75 gm/Dextrose 500 ml @ 125 mls/hr ONCE IVPB ; Start at 12:00; Stop 02/10/17 at 15:59 Sodium Bicarbonate 150 meq/Dextrose 1,000 ml @ 125 mls/hr Q8H IV ; Start 02/10 at 12:30 Albumin Human 100 ml @ 100 mls/hr ONCE ONCE IV Last administered on 11:25; Admin Dose 100 MLS/HR; Start 02/10/17 at 11:30; Stop 02/10/17 at 12:29 Phytonadione/ Dextrose (Vitamin K/D5W) 51 ml @ 102 mls/hr ONCE ONCE IVPB ; Start 02/10/17 at 12:30; Stop 02/10/17 at 12:59 Rifaximin 550 mg 550 mg BID PO ; Start 02/10/17 at 21:00 Phytonadione 10 mg/Dextrose 51 ml @ 102 mls/hr ONCE ONCE IVPB ; Start 10/28/ 17 at 11:30; Stop 02/11/17 at 11:59 Phytonadione/ Dextrose (Vitamin K/D5W) 51 ml @ 102 mls/hr ONCE ONCE IVPB ; Start 02/12/17 at 11:30; Stop 02/12/17 at 11:59 Assessment/Plan Chief Complaint/Hosp Course SUBJECTIVE: Intubated, on Levophed gtt, nad INDWELLINGS: The patient has Carolina, ETT, NG tube and PICC line placed on admission. Abx: Vanco, Merrem PHYSICAL EXAMINATION: GENERAL: Chronically ill-appearing, wasted, middle-aged man who is in no distress. HEENT: Head atraumatic, normocephalic. Sclerae icteric. Buccal mucosa dry. NECK: Supple. CHEST: Rise symmetrical. Breath sounds diminished to bases. HEART: S1, S2. ABDOMEN: Distended, soft. Bowel tones hypoactive. EXTREMITIES: With pedal edema, trace. ASSESSMENT: 1. Shock, multifactorial, restarted on abx. 2. Acute resp failure ?aspiration event 3. Acute encephalopathy, hepatic 2. Acute alcoholic pancreatitis. 3. End-stage liver disease. 4. Ascites, status post multiple paracenteses, treated with antibiotics for presumable SBP. 5. Anemia and thrombocytopenia. 6. Hypernatremia. 7. Acute kidney injury, possibly hepatorenal syndrome. PLAN: Hemodynamically unstable, on Levophed gtt, restarted on abx. Continue present care, vent support, repeat cx's, f/u recommendations of consultants. Prognosis guarded. Awaiting tx to tertiary care facility. Repeat cx's dw family/staff Problems: ROSALIA BARKER NP Feb 10, 2017 12:04
[2017-02-10] MEDS: SODIUM BICARBONATE (IV ADD) 150 MEQ in DEXTROSE 5% 850 ML IV SCH ×2 (12:10→22:17)
[2017-02-10 12:19] LABS: PROTIME 59.7 Sec (12.2-14.2); PT RATIO 4.7; THROMBIN TIME 28.5 SEC (13.8-19.1)
[2017-02-10 12:20] LABS: PARTIAL THROMBOPLASTIN TIME 67.9 Sec (25.0-35.0)
[2017-02-10 12:27] LABS: PLATELET COUNT 41 10^3/UL (140-415)
[2017-02-10] MEDS ORDERED: PHYTONADIONE 10 MG in DEXTROSE 5% 50 ML IVPB ONE (12:30)
[2017-02-10] MEDS: NYSTATIN SUSP 5 ML CUP PO SCH ×3 (12:48→21:00)
[2017-02-10 12:56] LABS: D-DIMER > 10000.00 ng/ml (<460)
[2017-02-10 13:24] LABS: FIBRIN SPLIT PRODUCT >80 and <160 ug/ml (<10)
[2017-02-10 13:45] LABS: ANISOCYTOSIS 3+ (0-0); BASOPHILS % (M) 1 % (0-2); BURR CELLS 2+ (0-0); EOSINOPHILS % (M) 3 % (0-7); ERYTHROBLAST% (NRBC) (M) 32 % (0-0); GIANT THROMBO% (M) 1 % (0-0); MONOCYTES % (M) 2 % (0-11); MYELOCYTES % (M) 1 % (0-0); PLATELET ESTIMATE SIG DECREASED; POIKILOCYTOSIS 3+ (0-0); POLYCHROMASIA 3+ (0-0); TARGET CELLS 1+ (0-0)
[2017-02-10 14:33] LABS: Arterial COHb 3.1 % (0.0-3.0); Arterial Fraction of Oxyhgb 91.5 % (93.0-99.0); Arterial HCO3 8.8 mmol/L (22.0-26.0); Arterial MetHb 0.5 % (0.0-1.5); Arterial Total Hemglobin 6.5 g/dl (12.0-18.0); MODE VENT - AC
[2017-02-10 17:48] LABS: CALCIUM 8.1 mg/dl (8.4-10.2); MAGNESIUM 2.3 mg/dl (1.7-2.5); PHOSPHORUS 9.5 mg/dl (2.5-4.9)
[2017-02-10 18:58] LABS: ABNORMAL IP MESSAGE 1; HEMATOCRIT 17.1 % (42.0-52.0); MEAN CORPUSCULAR HGB CONC 32.7 g/dl (32.0-37.0); MEAN CORPUSCULAR VOLUME 106.9 fl (82.0-101.0); NUCLEATED RED BLOOD CELLS% 15.5 /100WBC (0.0-0.0); POSITIVE DIFF @See below; WHITE BLOOD COUNT 36.3 10^3/ul (4.8-10.8)
--- NOTE | 2017-02-10 19:01 | QN ---
Documentation Comment Repeated conversations were made with [facility] in order to transfer patient but rejected Dr Mercer also [place] [facility] [place] but said that they would not accept patient due to Social issues ( per them SW at [facility] conveyed to them that family not supportive) which is not case Spoke to Krissy [employer] processor to see if pt can be transferred to different hospital however [place] [facility] [place] other [place]. Spoke to family at bedside and updated of situation. BRAEDEN LUNSFORD MD Feb 10, 2017 19:01
[2017-02-10 19:19] LABS: INR 2.85; PROTIME 30.3 Sec (12.2-14.2); PT RATIO 2.4
[2017-02-10 19:20] LABS: ALBUMIN/GLOBULIN RATIO 0.96; PARTIAL THROMBOPLASTIN TIME 64.9 Sec (25.0-35.0)
[2017-02-10 19:23] LABS: HEMOGLOBIN 5.6 g/dl (14.0-18.0); MEAN PLATELET VOLUME 10.5 fl (7.4-10.4); PLATELET COUNT 138 10^3/UL (140-415); POTASSIUM 4.7 mmol/L (3.5-5.1)
[2017-02-10 19:24] LABS: ALBUMIN 2.5 g/dl (3.3-4.9); BILIRUBIN,INDIRECT 3.7 mg/dl (0-1.1); CALCIUM 7.6 mg/dl (8.4-10.2); TOTAL PROTEIN 5.1 g/dl (6.1-8.1)
[2017-02-10 19:27] LABS: BILIRUBIN,DIRECT 25.8 mg/dl (0.00-0.20)
[2017-02-10 19:29] LABS: BILIRUBIN,TOTAL 29.5 mg/dl (0.2-1.3)
[2017-02-10 19:30] LABS: CREATININE 2.81 mg/dl (0.61-1.24)
--- NOTE | 2017-02-10 20:15 | OPR ---
Date/Time of Note Date/Time of Note DATE: 02/10/17 TIME: 20:08 Operative Report Procedure Date: Feb 10, 2017 Preoperative Diagnosis . Postoperative Diagnosis . Operation/Procedure Performed . Surgeon . Narrow Gauge Engineer . Anesthesia Type: other Estimated Blood Loss: none Transfusion none Specimen . Grafts/Implants none Tubes/Drains robert Complications none Pt Condition Post Procedure: critical Procedure Description Preoperative Diagnosis: Need for emergent dialysis catheter Postoperative Diagnosis: Need for emergent dialysis catheter Operation Performed: 1. Right internal jugular Farzad dialysis catheter insertion 2. [place], [address] 3. Ultrasound guidance and interpretation Surgeon: PETER TAMEZ MD Anesthesia: other (Local) Estimated Blood Loss: 0 - 10 ml's Specimens: None Tubes/Drains: Triple-lumen Farzad dialysis catheter Complications: None Pt Condition Post Procedure: Guarded as prior to procedure Disposition: In own room Indications: Patient with severe sepsis and acidemia and renal failure in need of emergent dialysis. Patient is very high risk and has poor prognosis which was discussed in detail with family and physicians. Risks, benefits, alternatives were fully reviewed including bleeding ( significant), hematoma, damage to neurovascular bundle, damage to the lungs ( pneumothorax) Damage to the heart, hemothorax, infection, DVT, PE, air embolism, pneumonia, AR , stroke, PE, arrhythmia, need for urgent procedures or operations, . Operative\Procedure Findings: Ultrasound findings: Ultrasound identified the internal jugular vein anterolateral to the carotid and compressible. Using the ultrasound the needle was directly placed into the vein under visualization and then the wire was placed which was confirmed in both transverse and longitudinal planes. Procedure Description: Patient was placed in Trendelenburg in own bed, all pressure points were well- padded, his right neck/chest were prepped and draped in usual sterile fashion and timeout was performed. Local anesthetic was infiltrated at the right neck. Using the ultrasound the neck structures were identified. The IJ is anterolateral to the carotid. The IJ is also compressible compared to the carotid artery. Using the ultrasound and an 18-gauge needle, vein was accessed under direct visualization and a wire was placed. The wire placement in the IJ was confirmed using the ultrasound in longitudinal and transverse planes. Using Seldinger technique the catheter was placed over the wire into the IJ and SVC. All 3 ports easily draw back dark nonpulsatile blood and easily flushed with saline. Breath sounds and sats maintained. Postoperative chest x-ray pending. PETER TAMEZ MD Feb 10, 2017 20:15
[2017-02-10 20:41] LABS: AADO2 Arterial 132.9 mmHg (7.0-24.0); Arterial Base Excess -13.6 mmol/L (-3.0-3); Arterial COHb 3.5 % (0.0-3.0); Arterial Fraction of Oxyhgb 75.6 % (93.0-99.0); Arterial HCO3 11.7 mmol/L (22.0-26.0); Arterial MetHb 0.8 % (0.0-1.5); Arterial Total Hemglobin 6.3 g/dl (12.0-18.0); MODE VENT - AC
[2017-02-10] MEDS ORDERED: MANNITOL 20% 250 ML BAG IV ONE (21:00)
[2017-02-10 21:29] LABS: ERYTHROBLAST% (NRBC) (M) 16 % (0-0); LYMPHOCYTES # 2.9 10^3/ul (0.8-2.9); MONOCYTE # 1.5 10^3/ul (0.3-0.9); MONOCYTES % (M) 4 % (0-11)
[2017-02-10 21:30] LABS: BURR CELLS 3+
--- NOTE | 2017-02-10 21:59 | RADRPT ---
PROCEDURE: XR Chest. CLINICAL INDICATION: Shortness of breath. TECHNIQUE: AP Portable chest. COMPARISON: 02/05/2015 FINDINGS: There is mild cardiomegaly. There is moderate pulmonary vascular congestion which is increased comp ared to the prior. The osseous structures are unremarkable. An endotracheal tube tip is in the mid trachea. A nasogastric tube tip is in the stomach. A left arm PICC line is seen with tip at the cavoatrial junction. A right internal jugular central venous cath eter seen with tip in the right atrium. IMPRESSION: Moderate pulmonary vascular congestion increased compared to the prior. RPTAT: HIKT .Gutierrez Gar MD, MD Date Time Electronically viewed and signed by .Gutierrez Gar MD, on 02/10/2017 21:59 .T/
[2017-02-10] MEDS: RIFAXIMIN 550 MG TAB PO SCH (22:25)
[2017-02-11] VITALS (87 sets, daily range): BP systolic 87–126; BP diastolic 50–104; PULSE 78–98; RESP 16–34
[2017-02-11 01:42] LABS: ABNORMAL IP MESSAGE 1; BASOPHIL # 0.1 10^3/ul (0.0-0.1); BASOPHILS % 0.2 % (0.0-2.0); HEMATOCRIT 21.4 % (42.0-52.0); HEMOGLOBIN 7.4 g/dl (14.0-18.0); LYMPHOCYTES # 1.7 10^3/ul (0.8-2.9); LYMPHOCYTES % 4.1 % (15.0-51.0); MEAN CORPUSCULAR HEMOGLOBIN 33.2 pg (29.0-33.0); MEAN CORPUSCULAR HGB CONC 34.6 g/dl (32.0-37.0); MEAN PLATELET VOLUME 11.2 fl (7.4-10.4); MONOCYTE # 2.1 10^3/ul (0.3-0.9); MONOCYTES % 5.2 % (0.0-11.0); NEUTROPHIL # 34.4 10^3/ul (1.6-7.5); NEUTROPHILS % 85.7 % (39.0-77.0); NUCLEATED RED BLOOD CELLS # 6.1 10^3/ul (0.0-0.0); NUCLEATED RED BLOOD CELLS% 15.2 /100WBC (0.0-0.0); POSITIVE DIFF @See below; RED BLOOD COUNT 2.23 10^6/ul (4.70-6.10); RED CELL DISTRIBUTION WIDTH 25.2 % (11.5-14.5)
[2017-02-11 01:45] LABS: WHITE BLOOD COUNT 40.1 10^3/ul (4.8-10.8)
[2017-02-11 01:46] LABS: PLATELET COUNT 50 10^3/UL (140-415)
[2017-02-11 01:55] LABS: AADO2 Arterial 324.6 mmHg (7.0-24.0); Allen Test ACCEPTAB; Arterial Base Excess -2.3 mmol/L (-3.0-3); Arterial COHb 1.7 % (0.0-3.0); Arterial Fraction of Oxyhgb 93.3 % (93.0-99.0); Arterial HCO3 20.1 mmol/L (22.0-26.0); Arterial MetHb 0.2 % (0.0-1.5); Arterial Total Hemglobin 8.7 g/dl (12.0-18.0); MODE VENT - AC
[2017-02-11 01:55] LABS: INR 2.48; PROTIME 27.1 Sec (12.2-14.2); PT RATIO 2.1
[2017-02-11 02:02] LABS: ALBUMIN 2.7 g/dl (3.3-4.9); ALBUMIN/GLOBULIN RATIO 0.96; BILIRUBIN,INDIRECT 4.5 mg/dl (0-1.1); CALCIUM 7.9 mg/dl (8.4-10.2); CREATININE 1.99 mg/dl (0.61-1.24); POTASSIUM 3.9 mmol/L (3.5-5.1); TOTAL PROTEIN 5.5 g/dl (6.1-8.1)
[2017-02-11 02:13] LABS: BILIRUBIN,DIRECT 26.2 mg/dl (0.00-0.20); BILIRUBIN,TOTAL 30.7 mg/dl (0.2-1.3)
[2017-02-11] MEDS: SODIUM BICARBONATE (IV ADD) 150 MEQ in DEXTROSE 5% 850 ML IV SCH (04:53)
[2017-02-11 05:58] LABS: AADO2 Arterial 103.9 mmHg (7.0-24.0); Allen Test ACCEPTAB; Arterial Base Excess 0.9 mmol/L (-3.0-3); Arterial COHb 1.7 % (0.0-3.0); Arterial Fraction of Oxyhgb 93.9 % (93.0-99.0); Arterial HCO3 22.8 mmol/L (22.0-26.0); Arterial MetHb 0.4 % (0.0-1.5); Arterial Total Hemglobin 8.3 g/dl (12.0-18.0); MODE VENT - AC
[2017-02-11 06:27] LABS: ABNORMAL IP MESSAGE 1; HEMATOCRIT 21.2 % (42.0-52.0); HEMOGLOBIN 7.3 g/dl (14.0-18.0); MEAN CORPUSCULAR HEMOGLOBIN 32.6 pg (29.0-33.0); MEAN CORPUSCULAR HGB CONC 34.4 g/dl (32.0-37.0); MEAN CORPUSCULAR VOLUME 94.6 fl (82.0-101.0); NUCLEATED RED BLOOD CELLS% 17.6 /100WBC (0.0-0.0); PLATELET COUNT 49 10^3/UL (140-415); POSITIVE DIFF @See below; RED BLOOD COUNT 2.24 10^6/ul (4.70-6.10); RED CELL DISTRIBUTION WIDTH 25.8 % (11.5-14.5); WHITE BLOOD COUNT 39.6 10^3/ul (4.8-10.8)
[2017-02-11] MEDS: CALCIUM ACETATE 667 MG CAP PO SCH ×3 (06:39→18:33)
[2017-02-11 06:47] LABS: INR 2.54; PROTIME 27.7 Sec (12.2-14.2); PT RATIO 2.2
[2017-02-11 07:19] LABS: ALBUMIN 2.4 g/dl (3.3-4.9); ALBUMIN/GLOBULIN RATIO 0.85; BILIRUBIN,INDIRECT 4.5 mg/dl (0-1.1); CALCIUM 7.6 mg/dl (8.4-10.2); CREATININE 2.22 mg/dl (0.61-1.24); POTASSIUM 3.8 mmol/L (3.5-5.1); TOTAL PROTEIN 5.2 g/dl (6.1-8.1)
[2017-02-11 07:21] LABS: CREATININE 2.45 mg/dl (0.61-1.24)
[2017-02-11 07:23] LABS: BILIRUBIN,TOTAL 31.3 mg/dl (0.2-1.3)
[2017-02-11 07:26] LABS: BILIRUBIN,DIRECT 26.8 mg/dl (0.00-0.20)
[2017-02-11] MEDS: INSULIN ASPART [NOVOLOG] 3 ML PEN SC SCH ×4 (07:35→20:08)
--- NOTE | 2017-02-11 08:11 | CONS ---
Date/Time of Note Date/Time of Note DATE: 02/11/17 TIME: 08:08 Assessment/Plan Assessment/Plan Additional Assessment/Plan Chest x-ray was reviewed from late yesterday evening which is showing minimal patchy basilar infiltrates. Patient is currently on Levophed at 3 mics per minute. Current ventilator setting; AC of 14, tidal volume 550, PEEP of 5, 60% FiO2. Assessment and recommendations; 1. Patient admitted with severe hepatic enteropathy due to alcoholic cirrhosis not requiring intubation for worsening encephalopathy. 2. Worsening renal function. 3. Hepatorenal syndrome. 4. Anemia and thrombocytopenia. 5. Status post upper GI bleed. 6. Status post 2 paracentesis. 7. Persistent severe hyper bilirubinemia with interval worsening. 8. Persistent severe leukocytosis. Patient currently on appropriate antibiotic regimen. 9. Developing pneumonia. 10. Patient currently is being mildly hyperventilated. Ventilator settings have been adjusted. Tidal volume has been decreased to 500 and rate to 12. Continue current supportive care. Prognosis is appearing extremely poor. Consultation Date/Type/Reason Admit Date/Time Jan 02, 2017 at 19:30 Initial Consult Date 01/07/17 Type of Consultation: Pulmonary/critical care Referring Provider: BRAEDEN LUNSFORD MD 24 HR Interval Summary Free Text/Dictation Patient's condition remains critical. Remains completely unresponsive. Patient requiring low-dose Levophed for mild hypotension. General exam; young male, orally intubated, unresponsive, currently in no distress. Exam/Review of Systems Vital Signs Vitals Vital Signs Date Time Temp Pulse Resp B/P Pulse Ox O2 Delivery O2 Flow Rate FiO2 02/11/17 06:30 88 25 118/51 100 Mechanical Ventilator 02/11/17 05:45 60 02/11/17 04:00 98.5 Intake and Output 02/10/17 02/10/17 02/11/17 15:00 23:00 07:00 Intake Total 1140.990 ml 3655.495 ml 1994.99 ml Output Total 110 ml 1000 ml Balance 1030.990 ml 3655.495 ml 994.99 ml Exam HEENT exam; supple neck, no JVD. No lymphadenopathy. Midline trachea. No thyromegaly. Patient remains deeply icteric. Orally intubated. Patient has carious teeth. No oral bleeding seen. Pupils are small bilaterally. Chest exam; diminished but clear breath sound. S1-S2 audible, no murmurs. Regular rhythm. Abdomen exam; soft, positive fluid thrill. Bowel sounds are sluggish. No organomegaly. Extremity exam; no peripheral edema. [facility] exam; patient remains unresponsive. Results Result Diagram: 02/11/17 0600 02/11/17 0600 Results 24 hrs Laboratory Tests Test 02/10/17 09:08 02/10/17 10:00 02/10/17 11:06 02/10/17 11:16 White Blood Count 41.9 H Red Blood Count 1.69 L Hemoglobin 6.0 #*L Hematocrit 19.1 L Mean Corpuscular Volume 113.0 H Mean Corpuscular Hemoglobin 35.5 H Mean Corpuscular Hemoglobin Concent 31.4 L Red Cell Distribution Width 24.3 H Platelet Count 34 L 41 L Mean Platelet Volume Neutrophils % Segmented Neutrophils % (Manual) 78 H Band Neutrophils % (Manual) 9 H Lymphocytes % Lymphocytes % (Manual) 6 L Monocytes % Monocytes % (Manual) 2 Eosinophils % Eosinophils % (Manual) 3 Basophils % Basophils % (Manual) 1 Myelocytes % (Manual) 1 H Nucleated Red Blood Cells % 32 H Neutrophils # Neutrophils # (Manual) 34.2 H Band Neutrophils # 3.7 H Absolute Lymphocytes (Manual) 2.5 Lymphocytes # Monocytes # Absolute Monocytes (Manual) 0.8 Eosinophils # Basophils # Basophils # (Manual) 0.4 H Myelocytes # 0.4 H Nucleated Red Blood Cells # Platelet Estimate SIG DECREASED Giant Platelets 1 H Polychromasia 3+ Poikilocytosis 3+ Anisocytosis 3+ Macrocytosis 3+ Target Cells 1+ Prothrombin Time 53.7 #H 59.7 H Prothrombin Time Ratio 4.2 4.7 INR International Normalized Ratio 5.86 6.70 *H Sodium Level 150 H 157 H Potassium Level 4.6 Chloride Level 122 H Carbon Dioxide Level 12 L Anion Gap 21 H Blood Urea Nitrogen 94 H Creatinine 2.51 H Glucose Level 235 H Calcium Level 7.5 L Total Bilirubin 23.1 #H Direct Bilirubin 20.80 *H Indirect Bilirubin 2.3 H Aspartate Amino Transf (AST/SGOT) 387 #H Alanine Aminotransferase (ALT/SGPT) 104 H Alkaline Phosphatase 495 H Lactate Dehydrogenase 1653 H Total Protein 4.2 #L Albumin 1.7 L Globulin 2.50 Albumin/Globulin Ratio 0.68 Blood Gas Specimen Source Blood arterial Arterial Blood Date Drawn 02/10/2017 10:32:00 AM Arterial Blood pH (Temp corrected) 7.239 *L Arterial Blood pCO2 (Temp correct) 23.3 L Arterial Blood pO2 (Temp corrected) 105.5 H Arterial Blood HCO3 9.7 *L Arterial Blood Base Excess -16.2 L Arterial Blood Oxygen Saturation 96.6 Prateek Test ACCEPTAB Arterial Blood Gas Puncture Site Right Radial Arterial Blood Carboxyhemoglobin 2.0 Arterial Blood Methemoglobin 0.7 Blood Gas A-a O2 Differential 152.9 H Oxyhemoglobin Percent 94.0 Total Hemoglobin 7.1 L Blood Gas Temperature 37.0 Blood Gas Respiration Rate 14.0 Blood Gas Actual Respiration Rate 22 Blood Gas Modality VENT - AC FiO2 40.0 Blood Gas Tidal Volume 550.0 Blood Gas Low PEEP Setting 5.0 Blood Gas Critical Value Read Back A HA PETERSON Blood Gas Notified Whom SS Blood Gas Notified Time 02/10/2017 10:39:00 AM Activated Partial Thromboplast Time 67.9 H Thrombin Time 28.5 H Fibrinogen 121.0 L Plasma Fibrin Degradation Products >80 and <160 H D-Dimer > 65421.00 H Test 02/10/17 14:00 02/10/17 17:09 02/10/17 18:43 02/10/17 19:35 Blood Gas Specimen Source Blood arterial Blood arterial Arterial Blood Date Drawn 02/10/2017 2:20:28 PM 02/10/2017 8:29:38 PM Arterial Blood pH (Temp corrected) 7.244 *L 7.290 *L Arterial Blood pCO2 (Temp correct) 20.8 L 24.9 L Arterial Blood pO2 (Temp corrected) 87.5 51.7 *L Arterial Blood HCO3 8.8 *L 11.7 L Arterial Blood Base Excess -17.0 L -13.6 L Arterial Blood Oxygen Saturation 94.9 L 79.0 L Prateek Test N/A N/A Arterial Blood Gas Puncture Site Right Brachial Right Brachial Arterial Blood Carboxyhemoglobin 3.1 H 3.5 H Arterial Blood Methemoglobin 0.5 0.8 Blood Gas A-a O2 Differential 102.0 H 132.9 H Oxyhemoglobin Percent 91.5 L 75.6 L Total Hemoglobin 6.5 L 6.3 L Blood Gas Temperature 37.0 37.0 Blood Gas Respiration Rate 14.0 14.0 Blood Gas Actual Respiration Rate 26 32 Blood Gas Modality VENT - AC VENT - AC FiO2 30.0 30.0 Blood Gas Tidal Volume 550.0 550.0 Blood Gas Low PEEP Setting 5.0 5.0 Blood Gas Critical Value Read Back Edie TAYLOR R.N. Blood Gas Notified Whom KO LW Blood Gas Notified Time 02/10/2017 2:31:09 PM 02/10/2017 8:40:55 PM Calcium Level 8.1 L 7.6 L Phosphorus Level 9.5 #H Magnesium Level 2.3 White Blood Count 36.3 H Red Blood Count 1.60 L Hemoglobin 5.6 *L Hematocrit 17.1 L Mean Corpuscular Volume 106.9 H Mean Corpuscular Hemoglobin 35.0 H Mean Corpuscular Hemoglobin Concent 32.7 Red Cell Distribution Width 28.0 H Platelet Count 138 #L Mean Platelet Volume 10.5 #H Neutrophils % Segmented Neutrophils % (Manual) 81 H Band Neutrophils % (Manual) 7 H Lymphocytes % (Manual) 8 L Monocytes % (Manual) 4 Eosinophils % Nucleated Red Blood Cells % 16 H Neutrophils # Neutrophils # (Manual) 30.3 H Band Neutrophils # 2.5 H Absolute Lymphocytes (Manual) 2.9 Lymphocytes # 2.9 Monocytes # 1.5 H Absolute Monocytes (Manual) 1.4 H Eosinophils # Macrocytosis 1+ Prothrombin Time 30.3 #H Prothrombin Time Ratio 2.4 INR International Normalized Ratio 2.85 Activated Partial Thromboplast Time 64.9 H Sodium Level 147 H Potassium Level 4.7 Chloride Level 113 H Carbon Dioxide Level 12 L Anion Gap 27 H Blood Urea Nitrogen 102 H Creatinine 2.81 H Glucose Level 328 H Total Bilirubin 29.5 #H Direct Bilirubin 25.80 *H Indirect Bilirubin 3.7 H Aspartate Amino Transf (AST/SGOT) 674 #H Alanine Aminotransferase (ALT/SGPT) 147 H Alkaline Phosphatase 405 H Lactate Dehydrogenase 2549 #H Total Protein 5.1 L Albumin 2.5 L Globulin 2.60 Albumin/Globulin Ratio 0.96 Blood Gas Inspiratory Pressure 17.0 Test 02/11/17 01:20 02/11/17 01:30 02/11/17 05:06 02/11/17 06:00 White Blood Count 40.1 H 39.6 H Red Blood Count 2.23 #L 2.24 L Hemoglobin 7.4 #L 7.3 L Hematocrit 21.4 #L 21.2 L Mean Corpuscular Volume 96.0 94.6 Mean Corpuscular Hemoglobin 33.2 H 32.6 Mean Corpuscular Hemoglobin Concent 34.6 34.4 Red Cell Distribution Width 25.2 H 25.8 H Platelet Count 50 #L 49 L Mean Platelet Volume 11.2 H 11.0 H Neutrophils % 85.7 H Lymphocytes % 4.1 L Monocytes % 5.2 Eosinophils % 0.0 Basophils % 0.2 Nucleated Red Blood Cells % 15.2 H 17.6 H Neutrophils # 34.4 H Lymphocytes # 1.7 Monocytes # 2.1 H Eosinophils # 0.0 Basophils # 0.1 Nucleated Red Blood Cells # 6.1 H Prothrombin Time 27.1 H 27.7 H Prothrombin Time Ratio 2.1 2.2 INR International Normalized Ratio 2.48 2.54 Sodium Level 147 H 146 H Potassium Level 3.9 3.8 Chloride Level 105 104 Carbon Dioxide Level 23 # 24 Anion Gap 23 H 22 H Blood Urea Nitrogen 69 #H 77 H Creatinine 1.99 H 2.45 H Glucose Level 260 H 227 H Calcium Level 7.9 L 7.6 L Total Bilirubin 30.7 H 31.3 H Direct Bilirubin 26.20 *H 26.80 *H Indirect Bilirubin 4.5 H 4.5 H Aspartate Amino Transf (AST/SGOT) 733 H 700 H Alanine Aminotransferase (ALT/SGPT) 157 H 146 H Alkaline Phosphatase 416 H 414 H Total Protein 5.5 L 5.2 L Albumin 2.7 L 2.4 L Globulin 2.80 2.80 Albumin/Globulin Ratio 0.96 0.85 Blood Gas Specimen Source Blood arterial Blood arterial Arterial Blood Date Drawn 02/11/2017 1:44:23 AM 02/11/2017 5:47:02 AM Arterial Blood pH (Temp corrected) 7.501 H 7.553 *H Arterial Blood pCO2 (Temp correct) 26.3 L 26.5 L Arterial Blood pO2 (Temp corrected) 74.3 L 78.9 L Arterial Blood HCO3 20.1 L 22.8 Arterial Blood Base Excess -2.3 0.9 Arterial Blood Oxygen Saturation 95.1 95.9 Prateek Test ACCEPTAB ACCEPTAB Arterial Blood Gas Puncture Site Right Radial Right Radial Arterial Blood Carboxyhemoglobin 1.7 1.7 Arterial Blood Methemoglobin 0.2 0.4 Blood Gas A-a O2 Differential 324.6 H 103.9 H Oxyhemoglobin Percent 93.3 93.9 Total Hemoglobin 8.7 L 8.3 L Blood Gas Temperature 37.0 37.0 Blood Gas Respiration Rate 14.0 14.0 Blood Gas Actual Respiration Rate 26 23 Blood Gas Modality VENT - AC VENT - AC FiO2 60.0 30.0 Blood Gas Tidal Volume 550.0 550.0 Blood Gas Low PEEP Setting 5.0 5.0 Blood Gas Notified Whom YAYA TUTTLE RCP Blood Gas Notified Time 02/11/2017 1:55:07 AM 02/11/2017 5:58:10 AM Lab Scanned Report BLOOD TRANSFUSION Blood Gas Critical Value Read Back LINDY PETERSON Lactate Dehydrogenase 2578 H Medications Medications Current Medications Ondansetron HCl (Zofran Inj) 4 mg Q6H PRN IV NAUSEA AND/OR VOMITING Last administered on 01/03/17 14:52; Admin Dose 4 MG; Start 01/02/17 at 23:00 IV Flush (NS 10 ml) 10 ml PRN PRN IV IV PROTOCOL; Start 01/05/17 at 18:30 Nystatin (Nystatin Susp) 5 ml QID PO Last administered on 02/10/17 21:00; Admin Dose 5 ML; Start 01/13/17 at 17:00 Glucose (Glutose) 15 gm Q15M PRN PO DECREASED GLUCOSE; Start 01/15/17 at 18:30 Glucose (Glutose) 22.5 gm Q15M PRN PO DECREASED GLUCOSE; Start 01/15/17 at 18: 30 Dextrose (D50w Syringe) 25 ml Q15M PRN IV DECREASED GLUCOSE; Start 01/15/17 at 18:30 Dextrose (D50w Syringe) 50 ml Q15M PRN IV DECREASED GLUCOSE; Start 01/15/17 at 18:30 Glucagon (Glucagen) 1 mg Q15M PRN IM DECREASED GLUCOSE; Start 01/15/17 at 18:30 Glucose (Glutose) 15 gm Q15M PRN BUCCAL DECREASED GLUCOSE; Start 01/15/17 at 18 :30 Folic Acid (Folic Acid) 1 mg DAILY PO Last administered on 02/10/17 08:59; Admin Dose 1 MG; Start 01/26/17 at 09:00 Thiamine HCl (Vitamin B1) 100 mg DAILY PO Last administered on 02/10/17 09:00 ; Admin Dose 100 MG; Start 01/26/17 at 09:00 Multivit/Ca Carb/ B Cmplx/FA/Prenat (Elizabeth-Kaylee) 1 tab DAILY PO Last administered on 02/10/17 08:59; Admin Dose 1 TAB; Start 01/26/17 at 09:00 Lorazepam (Ativan) 0.5 mg Q6H PRN IV AGITATION/ANXIETY Last administered on 08:59; Admin Dose 0.5 MG; Start 01/28/17 at 14:00 Famotidine 20 mg 20 mg Q12 PO Last administered on 02/10/17 22:25; Admin Dose 20 MG; Start 01/28/17 at 21:00 Norepinephrine 16 mg/Dextrose 500 ml @ 1.87 mls/hr TITRATE IV Last administered on 02/10/17 13:59; Admin Dose 20.62 MLS/HR; Start 02/10/17 at 12 :00 Meropenem/Sodium Chloride (Merrem 1 Gm/50 ml (Pmx)) 50 ml @ 100 mls/hr Q12H IVPB Last administered on 02/10/17 22:25; Admin Dose 100 MLS/HR; Start 02/10 at 09:30 Rifaximin 550 mg 550 mg BID PO Last administered on 02/10/17 22:25; Admin Dose 550 MG; Start 02/10/17 at 21:00 Phytonadione 10 mg/Dextrose 51 ml @ 102 mls/hr ONCE ONCE IVPB ; Start at 11:30; Stop 02/11/17 at 11:59; Status Future Hold Phytonadione 10 mg/Dextrose 51 ml @ 102 mls/hr ONCE ONCE IVPB ; Start at 11:30; Stop 02/12/17 at 11:59 Vancomycin HCl 1 gm/Dextrose 250 ml @ 125 mls/hr Q36H IVPB ; Start 02/12/17 at 02:00 Albumin Human (Albumin Human 25%) 100 ml @ 100 mls/hr Q8H IV ; Start 02/11/17 at 07:00; Stop 02/11/17 at 23:59 Diagnostic Test (Pha) (Accu-Chek) 1 ea 02 XX ; Start 02/12/17 at 02:00 Prednisolone (Prelone (Ped)) 35 mg DAILY PO ; Start 02/11/17 at 09:00 NERI MCKEON Feb 11, 2017 08:11
[2017-02-11] MEDS: ALBUMIN HUMAN 25% 100 ML IV SCH ×3 (08:32→23:04)
[2017-02-11] MEDS: BALSAM PERU/CASTOR OIL 60 GM TUBE TOP SCH ×2 (08:40→20:32)
[2017-02-11] MEDS: NYSTATIN SUSP 5 ML CUP PO SCH ×4 (08:40→20:32)
[2017-02-11] MEDS: FAMOTIDINE 20 MG TAB PO SCH ×2 (08:40→20:32)
[2017-02-11] MEDS: RIFAXIMIN 550 MG TAB PO SCH ×2 (08:40→20:32)
[2017-02-11] MEDS: MULTIVIT/CA CARB/B CMPLX/FA TAB PO SCH (08:40)
[2017-02-11] MEDS: FOLIC ACID 1 MG TAB PO SCH (08:40)
[2017-02-11] MEDS: THIAMINE 100 MG TAB PO SCH (08:40)
[2017-02-11] MEDS: MEROPENEM 1 GM/50ML(PMX) 50 ML IVPB SCH ×2 (10:17→20:33)
[2017-02-11] MEDS: predniSOLONE (3 MG/ML PO SYG) PO SCH (10:17)
[2017-02-11 10:19] LABS: ABNORMAL IP MESSAGE 1; BASOPHIL # 0.1 10^3/ul (0.0-0.1); BASOPHILS % 0.2 % (0.0-2.0); HEMATOCRIT 20.5 % (42.0-52.0); HEMOGLOBIN 7.2 g/dl (14.0-18.0); LYMPHOCYTES # 0.7 10^3/ul (0.8-2.9); MEAN CORPUSCULAR HEMOGLOBIN 33.3 pg (29.0-33.0); MEAN CORPUSCULAR HGB CONC 35.1 g/dl (32.0-37.0); MEAN CORPUSCULAR VOLUME 94.9 fl (82.0-101.0); MONOCYTES % 5.4 % (0.0-11.0); NEUTROPHIL # 32.4 10^3/ul (1.6-7.5); NEUTROPHILS % 87.7 % (39.0-77.0); NUCLEATED RED BLOOD CELLS # 7.3 10^3/ul (0.0-0.0); NUCLEATED RED BLOOD CELLS% 19.8 /100WBC (0.0-0.0); PLATELET COUNT 49 10^3/UL (140-415); POSITIVE DIFF @See below; RED BLOOD COUNT 2.16 10^6/ul (4.70-6.10); RED CELL DISTRIBUTION WIDTH 26.9 % (11.5-14.5); WHITE BLOOD COUNT 36.9 10^3/ul (4.8-10.8)
[2017-02-11 10:41] LABS: INR 2.85; PROTIME 30.3 Sec (12.2-14.2); PT RATIO 2.4
--- NOTE | 2017-02-11 11:27 | CONS ---
Date/Time of Note Date/Time of Note DATE: 02/11/17 TIME: 11:07 Assessment/Plan Assessment/Plan Chief Complaint/Hosp Course ID PROGRESS NOTE TOTAL ABX DAY # 33 CURRENT ABX=> Vanco IV + Merrem + Rifaximin 24H INTERVAL SUMMARY * Encephalopathic -> Re-intubated early am 02/10/17 for recurrent hypoxic respiratory failure * s/p Urgent HD yesterday w/Right internal jugular Farzad dialysis catheter insertion * CXR 02/10/17 Moderate pulmonary vascular congestion increased compared to the prior. * Urine 02/10/17 (-) preliminary * Sputum 02/10/17 Normal Iqra, preliminary GENERAL: Critically ill on pressors, encephalopathic, orally intubated in ICU HEENT: (+)Icteric, Jaundice, ETT-> secure to Vent NECK: Trach midline, full ROM CV: NSR on tele CHEST: Rise symmetrical => course BS on the Vent ABDOMEN: Distended EXTREMITIES: Anasarca SKIN: No diaphoresis, no rash, jaundice ID ASSESSMENT: 36 yo M admit with: 1. Hypotension/shock -> Multifactorial due to Liver Failure, s/p sepsis * Hypovolemic due to intravascular volume depletions/3rd spacing in setting liver failure * (+) Presumptive SBP Sepsis + ASP PNA => worsening PNA on CXR * Persisting Leukocytosis ->Multifactorial: likely SBP, ASP Pneumonitis, (+) Reactive SRIS, (+)partial steroid demargination * s/p acute UGIB from esophageal varices 2. End-stage liver disease w/hepatic encephalopathy * Persistent severe hyper bilirubinemia with interval worsening. * Anemia + thrombocytopenia + hypoalbuminemia => Due to liver failure 3. Ascites, status post multiple paracenteses, treated with antibiotics for presumable SBP. 4. Acute alcoholic pancreatitis => SIRS w/ leukocytosis * CT w/(+)Diffuse mesenteric edema on admission 5. Acute recurrent respiratory failure, possibly aspiration event=> Re- intubated early am 02/10/17 6. Acute renal failure with severe acidosis=> hepatorenal syndrome * Urgent HD initiated 02/10/17 w/Right internal jugular Farzad dialysis catheter insertion 7. Paralytic ileus. 8. History of alcohol (ETOH) abuse, withdrawal sxs 9. Severe metabolic acidosis w/multiple electrolyte imbalance. INVASIVES: PICC (01/05/17) , R-IJ Farzad (02/10/17) ABX ALLERGY: NKDA TOTAL ABX DAY # 33 CURRENT ABX=> Vanco IV + Merrem + Rifaximin ID PLAN 1. Continue current ABX =>however ABX therapy is not likely to change poor prognosis for meaningful recovery, promote ethic of futility vs family autonomy . Problems: Consultation Date/Type/Reason Admit Date/Time Jan 02, 2017 at 19:30 Initial Consult Date 01/07/17 Type of Consultation: ID Referring Provider: BRAEDEN LUNSFROD MD Exam/Review of Systems Vital Signs Vitals Vital Signs Date Time Temp Pulse Resp B/P Pulse Ox O2 Delivery O2 Flow Rate FiO2 02/11/17 08:45 86 25 110/62 100 02/11/17 08:00 98.1 Mechanical Ventilator 02/11/17 05:45 60 Intake and Output 02/10/17 02/10/17 02/11/17 15:00 23:00 07:00 Intake Total 1140.990 ml 3655.495 ml 1994.99 ml Output Total 110 ml 1000 ml Balance 1030.990 ml 3655.495 ml 994.99 ml Results Result Diagram: 02/11/17 1012 02/11/17 0600 Results 24 hrs Laboratory Tests Test 02/10/17 11:16 02/10/17 14:00 02/10/17 17:09 02/10/17 18:43 Platelet Count 41 L 138 #L Prothrombin Time 59.7 H 30.3 #H Prothrombin Time Ratio 4.7 2.4 INR International Normalized Ratio 6.70 *H 2.85 Activated Partial Thromboplast Time 67.9 H 64.9 H Thrombin Time 28.5 H Fibrinogen 121.0 L Plasma Fibrin Degradation Products >80 and <160 H D-Dimer > 89479.00 H Blood Gas Specimen Source Blood arterial Arterial Blood Date Drawn 02/10/2017 2:20:28 PM Arterial Blood pH (Temp corrected) 7.244 *L Arterial Blood pCO2 (Temp correct) 20.8 L Arterial Blood pO2 (Temp corrected) 87.5 Arterial Blood HCO3 8.8 *L Arterial Blood Base Excess -17.0 L Arterial Blood Oxygen Saturation 94.9 L Prateek Test N/A Arterial Blood Gas Puncture Site Right Brachial Arterial Blood Carboxyhemoglobin 3.1 H Arterial Blood Methemoglobin 0.5 Blood Gas A-a O2 Differential 102.0 H Oxyhemoglobin Percent 91.5 L Total Hemoglobin 6.5 L Blood Gas Temperature 37.0 Blood Gas Respiration Rate 14.0 Blood Gas Actual Respiration Rate 26 Blood Gas Modality VENT - AC FiO2 30.0 Blood Gas Tidal Volume 550.0 Blood Gas Low PEEP Setting 5.0 Blood Gas Critical Value Read Back Edie REYNOSO RN Blood Gas Notified Whom JLD Blood Gas Notified Time 02/10/2017 2:31:09 PM Calcium Level 8.1 L 7.6 L Phosphorus Level 9.5 #H Magnesium Level 2.3 White Blood Count 36.3 H Red Blood Count 1.60 L Hemoglobin 5.6 *L Hematocrit 17.1 L Mean Corpuscular Volume 106.9 H Mean Corpuscular Hemoglobin 35.0 H Mean Corpuscular Hemoglobin Concent 32.7 Red Cell Distribution Width 28.0 H Mean Platelet Volume 10.5 #H Neutrophils % Segmented Neutrophils % (Manual) 81 H Band Neutrophils % (Manual) 7 H Lymphocytes % (Manual) 8 L Monocytes % (Manual) 4 Eosinophils % Nucleated Red Blood Cells % 16 H Neutrophils # Neutrophils # (Manual) 30.3 H Band Neutrophils # 2.5 H Absolute Lymphocytes (Manual) 2.9 Lymphocytes # 2.9 Monocytes # 1.5 H Absolute Monocytes (Manual) 1.4 H Eosinophils # Macrocytosis 1+ Sodium Level 147 H Potassium Level 4.7 Chloride Level 113 H Carbon Dioxide Level 12 L Anion Gap 27 H Blood Urea Nitrogen 102 H Creatinine 2.81 H Glucose Level 328 H Total Bilirubin 29.5 #H Direct Bilirubin 25.80 *H Indirect Bilirubin 3.7 H Aspartate Amino Transf (AST/SGOT) 674 #H Alanine Aminotransferase (ALT/SGPT) 147 H Alkaline Phosphatase 405 H Lactate Dehydrogenase 2549 #H Total Protein 5.1 L Albumin 2.5 L Globulin 2.60 Albumin/Globulin Ratio 0.96 Test 02/10/17 19:35 02/11/17 01:20 02/11/17 01:30 02/11/17 05:06 Blood Gas Specimen Source Blood arterial Blood arterial Arterial Blood Date Drawn 02/10/2017 8:29:38 PM 02/11/2017 1:44:23 AM Arterial Blood pH (Temp corrected) 7.290 *L 7.501 H Arterial Blood pCO2 (Temp correct) 24.9 L 26.3 L Arterial Blood pO2 (Temp corrected) 51.7 *L 74.3 L Arterial Blood HCO3 11.7 L 20.1 L Arterial Blood Base Excess -13.6 L -2.3 Arterial Blood Oxygen Saturation 79.0 L 95.1 Prateek Test N/A ACCEPTAB Arterial Blood Gas Puncture Site Right Brachial Right Radial Arterial Blood Carboxyhemoglobin 3.5 H 1.7 Arterial Blood Methemoglobin 0.8 0.2 Blood Gas A-a O2 Differential 132.9 H 324.6 H Oxyhemoglobin Percent 75.6 L 93.3 Total Hemoglobin 6.3 L 8.7 L Blood Gas Temperature 37.0 37.0 Blood Gas Respiration Rate 14.0 14.0 Blood Gas Actual Respiration Rate 32 26 Blood Gas Modality VENT - AC VENT - AC FiO2 30.0 60.0 Blood Gas Tidal Volume 550.0 550.0 Blood Gas Low PEEP Setting 5.0 5.0 Blood Gas Inspiratory Pressure 17.0 Blood Gas Critical Value Read Back Jani TAYLOR R.N. Blood Gas Notified Whom LW LW Blood Gas Notified Time 02/10/2017 8:40:55 PM 02/11/2017 1:55:07 AM White Blood Count 40.1 H Red Blood Count 2.23 #L Hemoglobin 7.4 #L Hematocrit 21.4 #L Mean Corpuscular Volume 96.0 Mean Corpuscular Hemoglobin 33.2 H Mean Corpuscular Hemoglobin Concent 34.6 Red Cell Distribution Width 25.2 H Platelet Count 50 #L Mean Platelet Volume 11.2 H Neutrophils % 85.7 H Lymphocytes % 4.1 L Monocytes % 5.2 Eosinophils % 0.0 Basophils % 0.2 Nucleated Red Blood Cells % 15.2 H Neutrophils # 34.4 H Lymphocytes # 1.7 Monocytes # 2.1 H Eosinophils # 0.0 Basophils # 0.1 Nucleated Red Blood Cells # 6.1 H Prothrombin Time 27.1 H Prothrombin Time Ratio 2.1 INR International Normalized Ratio 2.48 Sodium Level 147 H Potassium Level 3.9 Chloride Level 105 Carbon Dioxide Level 23 # Anion Gap 23 H Blood Urea Nitrogen 69 #H Creatinine 1.99 H Glucose Level 260 H Calcium Level 7.9 L Total Bilirubin 30.7 H Direct Bilirubin 26.20 *H Indirect Bilirubin 4.5 H Aspartate Amino Transf (AST/SGOT) 733 H Alanine Aminotransferase (ALT/SGPT) 157 H Alkaline Phosphatase 416 H Lactate Dehydrogenase 2942 H Total Protein 5.5 L Albumin 2.7 L Globulin 2.80 Albumin/Globulin Ratio 0.96 Lab Scanned Report BLOOD TRANSFUSION Test 02/11/17 06:00 02/11/17 08:44 02/11/17 10:12 White Blood Count 39.6 H 36.9 H Red Blood Count 2.24 L 2.16 L Hemoglobin 7.3 L 7.2 L Hematocrit 21.2 L 20.5 L Mean Corpuscular Volume 94.6 94.9 Mean Corpuscular Hemoglobin 32.6 33.3 H Mean Corpuscular Hemoglobin Concent 34.4 35.1 Red Cell Distribution Width 25.8 H 26.9 H Platelet Count 49 L 49 L Mean Platelet Volume 11.0 H Neutrophils % 87.7 H Lymphocytes % 2.0 L Monocytes % 5.4 Eosinophils % 0.0 Basophils % 0.2 Nucleated Red Blood Cells % 17.6 H 19.8 H Neutrophils # 32.4 H Lymphocytes # 0.7 L Monocytes # 2.0 H Eosinophils # 0.0 Basophils # 0.1 Nucleated Red Blood Cells # 7.3 H Prothrombin Time 27.7 H 30.3 H Prothrombin Time Ratio 2.2 2.4 INR International Normalized Ratio 2.54 2.85 Blood Gas Specimen Source Blood arterial Arterial Blood Date Drawn 02/11/2017 5:47:02 AM Arterial Blood pH (Temp corrected) 7.553 *H Arterial Blood pCO2 (Temp correct) 26.5 L Arterial Blood pO2 (Temp corrected) 78.9 L Arterial Blood HCO3 22.8 Arterial Blood Base Excess 0.9 Arterial Blood Oxygen Saturation 95.9 Prateek Test ACCEPTAB Arterial Blood Gas Puncture Site Right Radial Arterial Blood Carboxyhemoglobin 1.7 Arterial Blood Methemoglobin 0.4 Blood Gas A-a O2 Differential 103.9 H Oxyhemoglobin Percent 93.9 Total Hemoglobin 8.3 L Blood Gas Temperature 37.0 Blood Gas Respiration Rate 14.0 Blood Gas Actual Respiration Rate 23 Blood Gas Modality VENT - AC FiO2 30.0 Blood Gas Tidal Volume 550.0 Blood Gas Low PEEP Setting 5.0 Blood Gas Critical Value Read Back LINDY PETERSON Blood Gas Notified Whom Nima MANZANARESP Blood Gas Notified Time 02/11/2017 5:58:10 AM Sodium Level 146 H Potassium Level 3.8 Chloride Level 104 Carbon Dioxide Level 24 Anion Gap 22 H Blood Urea Nitrogen 77 H Creatinine 2.45 H Glucose Level 227 H Calcium Level 7.6 L Total Bilirubin 31.3 H Direct Bilirubin 26.80 *H Indirect Bilirubin 4.5 H Aspartate Amino Transf (AST/SGOT) 700 H Alanine Aminotransferase (ALT/SGPT) 146 H Alkaline Phosphatase 414 H Lactate Dehydrogenase 2578 H 2292 H Total Protein 5.2 L Albumin 2.4 L Globulin 2.80 Albumin/Globulin Ratio 0.85 Bedside Glucose 124 Medications Medications Current Medications Ondansetron HCl (Zofran Inj) 4 mg Q6H PRN IV NAUSEA AND/OR VOMITING Last administered on 01/03/17 14:52; Admin Dose 4 MG; Start 01/02/17 at 23:00 IV Flush (NS 10 ml) 10 ml PRN PRN IV IV PROTOCOL; Start 01/05/17 at 18:30 Nystatin (Nystatin Susp) 5 ml QID PO Last administered on 02/11/17 08:40; Admin Dose 5 ML; Start 01/13/17 at 17:00 Glucose (Glutose) 15 gm Q15M PRN PO DECREASED GLUCOSE; Start 01/15/17 at 18:30 Glucose (Glutose) 22.5 gm Q15M PRN PO DECREASED GLUCOSE; Start 01/15/17 at 18: 30 Dextrose (D50w Syringe) 25 ml Q15M PRN IV DECREASED GLUCOSE; Start 01/15/17 at 18:30 Dextrose (D50w Syringe) 50 ml Q15M PRN IV DECREASED GLUCOSE; Start 01/15/17 at 18:30 Glucagon (Glucagen) 1 mg Q15M PRN IM DECREASED GLUCOSE; Start 01/15/17 at 18:30 Glucose (Glutose) 15 gm Q15M PRN BUCCAL DECREASED GLUCOSE; Start 01/15/17 at 18 :30 Folic Acid (Folic Acid) 1 mg DAILY PO Last administered on 02/11/17 08:40; Admin Dose 1 MG; Start 01/26/17 at 09:00 Thiamine HCl (Vitamin B1) 100 mg DAILY PO Last administered on 02/11/17 08:40 ; Admin Dose 100 MG; Start 01/26/17 at 09:00 Multivit/Ca Carb/ B Cmplx/FA/Prenat (Elizabeth-Kaylee) 1 tab DAILY PO Last administered on 02/11/17 08:40; Admin Dose 1 TAB; Start 01/26/17 at 09:00 Lorazepam (Ativan) 0.5 mg Q6H PRN IV AGITATION/ANXIETY Last administered on 08:59; Admin Dose 0.5 MG; Start 01/28/17 at 14:00 Famotidine 20 mg 20 mg Q12 PO Last administered on 02/11/17 08:40; Admin Dose 20 MG; Start 01/28/17 at 21:00 Norepinephrine 16 mg/Dextrose 500 ml @ 1.87 mls/hr TITRATE IV Last administered on 02/10/17 13:59; Admin Dose 20.62 MLS/HR; Start 02/10/17 at 12 :00 Meropenem/Sodium Chloride (Merrem 1 Gm/50 ml (Pmx)) 50 ml @ 100 mls/hr Q12H IVPB Last administered on 02/11/17 10:17; Admin Dose 100 MLS/HR; Start 02/10 at 09:30 Rifaximin 550 mg 550 mg BID PO Last administered on 02/11/17 08:40; Admin Dose 550 MG; Start 02/10/17 at 21:00 Phytonadione 10 mg/Dextrose 51 ml @ 102 mls/hr ONCE ONCE IVPB ; Start at 11:30; Stop 02/11/17 at 11:59; Status Future Hold Phytonadione 10 mg/Dextrose 51 ml @ 102 mls/hr ONCE ONCE IVPB ; Start at 11:30; Stop 02/12/17 at 11:59 Vancomycin HCl 1 gm/Dextrose 250 ml @ 125 mls/hr Q36H IVPB ; Start 02/12/17 at 02:00 Albumin Human (Albumin Human 25%) 100 ml @ 100 mls/hr Q8H IV Last administered on 02/11/17 08:32; Admin Dose 100 MLS/HR; Start 02/11/17 at 07: 00; Stop 02/11/17 at 23:59 Diagnostic Test (Pha) (Accu-Chek) 1 ea 02 XX ; Start 02/12/17 at 02:00 Prednisolone (Prelone (Ped)) 35 mg DAILY PO Last administered on 02/11/17 10: 17; Admin Dose 35 MG; Start 10/28/17 at 09:00 DOE OVALLES NP Feb 11, 2017 11:20
[2017-02-11] MEDS ORDERED: PHYTONADIONE 10 MG in DEXTROSE 5% 50 ML IVPB ONE (11:30)
[2017-02-11 11:57] LABS: CALCIUM 7.7 mg/dl (8.4-10.2); POTASSIUM 3.9 mmol/L (3.5-5.1)
[2017-02-11] MEDS ORDERED: VANCOMYCIN 1 GM in NS 250 ML IVPB SCH (12:00)
[2017-02-11] MEDS ORDERED: VANCOMYCIN 1 GM in DEXTROSE 5% 250 ML IVPB SCH (12:00)
--- NOTE | 2017-02-11 12:56 | RADRPT ---
Vent Rate: 94 bpm RR Interval: 0 msec PA Interval: 248 msec QRS Duration: 88 msec QT Interval: 482 msec QTC Interval: 602 msec P-R-T [place]: 0 - 24 - 0 degrees Sinus rhythm with 1st degree AV block Low voltage QRS ST amp; T wave abnormality, consider inferolateral ischemia Prolonged QT Abnormal ECG Electronically Signed By: Luis Blancas [id number]
[2017-02-11 14:01] LABS: ABNORMAL IP MESSAGE 1; BASOPHIL # 0.1 10^3/ul (0.0-0.1); BASOPHILS % 0.3 % (0.0-2.0); HEMATOCRIT 23.7 % (42.0-52.0); HEMOGLOBIN 8.3 g/dl (14.0-18.0); LYMPHOCYTES # 0.7 10^3/ul (0.8-2.9); LYMPHOCYTES % 1.8 % (15.0-51.0); MEAN CORPUSCULAR HEMOGLOBIN 32.5 pg (29.0-33.0); MEAN CORPUSCULAR VOLUME 92.9 fl (82.0-101.0); MONOCYTE # 1.7 10^3/ul (0.3-0.9); MONOCYTES % 4.7 % (0.0-11.0); NEUTROPHIL # 31.6 10^3/ul (1.6-7.5); NEUTROPHILS % 87.8 % (39.0-77.0); NUCLEATED RED BLOOD CELLS # 6.8 10^3/ul (0.0-0.0); NUCLEATED RED BLOOD CELLS% 18.9 /100WBC (0.0-0.0); POSITIVE DIFF @See below; RED BLOOD COUNT 2.55 10^6/ul (4.70-6.10); RED CELL DISTRIBUTION WIDTH 24.8 % (11.5-14.5)
[2017-02-11 14:16] LABS: INR 2.86; PROTIME 30.4 Sec (12.2-14.2); PT RATIO 2.4
[2017-02-11 14:18] LABS: ALBUMIN 2.6 g/dl (3.3-4.9); BILIRUBIN,INDIRECT 4.9 mg/dl (0-1.1); CALCIUM 8.3 mg/dl (8.4-10.2); CREATININE 1.78 mg/dl (0.61-1.24); POTASSIUM 3.1 mmol/L (3.5-5.1); TOTAL PROTEIN 5.2 g/dl (6.1-8.1)
[2017-02-11 14:19] LABS: PLATELET COUNT 32 10^3/UL (140-415)
[2017-02-11 14:28] LABS: BILIRUBIN,DIRECT 26.7 mg/dl (0.00-0.20); BILIRUBIN,TOTAL 31.6 mg/dl (0.2-1.3)
--- NOTE | 2017-02-11 15:33 | CONS ---
Date/Time of Note Date/Time of Note DATE: 02/11/17 TIME: 15:30 Assessment/Plan Assessment/Plan Additional Assessment/Plan Additional Assessment/Plan IMPRESSION: 1. Delirium tremens patient is still shaky unable to stand on his feet and continues to have slurred speech 2. Hepatic encephalopathy. Better patient is now communicating with slurred speech, still confused 3. Alcoholic liver disease. Patient is on prednisolone, total bilirubin is not coming down 4. Pancreatitis. Amylase has come down . Lipase is down 5. Leukocytosis. Persistent most probably related to alcoholic hepatitis and steroid, is slowly coming down 6. Renal insufficiency. Though the urine output is good. Renal function has improved a lot with good urine output. Creatinine is coming down. 7. Pedal edema resolved 8. Thrombocytopenia better 9. Ileus, small bowel follow-through was negative 10. Patient's gastroparesis might be related to uremia better 11. Hypernatremia 12. Spontaneous bacterial peritonitis. Acetic fluid was cloudy, WBC polymorphs where greater than 250 second paracentesis fluid was no more cloudy 13. Hypernatremia Plan Prednisolone dose has been reduced to 35 mg per day and it will be gradually reduced over a period of 2-3 weeks CAT scan of the abdomen once he is more stable Patient is off all the pressor support Continue with dialysis Continue all antibiotics Patient will be started on tube feeding nephro 20 cc/h for nutritional support Continue lactulose and rifaximin I had extensive discussion with the transplant attending and also transplant team for almost 20-30 minutes on phone hopefully they will rethink and may accept the patient. The entire discussion was dictated. Consultation Date/Type/Reason Admit Date/Time Jan 02, 2017 at 19:30 Type of Consultation: ID Referring Provider: BRAEDEN LUNSFORD MD 24 HR Interval Summary Subjective hx not possible: pt non-verbal, pt critical Exam/Review of Systems Vital Signs Vitals Vital Signs Date Time Temp Pulse Resp B/P Pulse Ox O2 Delivery O2 Flow Rate FiO2 02/11/17 14:15 84 25 99 02/11/17 14:00 107/56 Mechanical Ventilator 02/11/17 12:00 98.4 02/11/17 08:00 60 Intake and Output 02/10/17 02/10/17 02/11/17 15:00 23:00 07:00 Intake Total 1140.990 ml 3655.495 ml 1994.99 ml Output Total 110 ml 1000 ml Balance 1030.990 ml 3655.495 ml 994.99 ml Exam Constitutional: non-verbal Respiratory: diminished breath sounds Cardiovascular: nl pulses, regular rate and rhythm Gastrointestinal: tender (Generalized tenderness reduced) Musculoskeletal: nl extremities to inspection, nl gait and stance Extremities: edema Neurological: lethargic Results Result Diagram: 02/11/17 1341 02/11/17 1340 Results 24 hrs Laboratory Tests Test 02/10/17 17:09 02/10/17 18:43 02/10/17 19:35 02/11/17 01:20 Calcium Level 8.1 L 7.6 L 7.9 L Phosphorus Level 9.5 #H Magnesium Level 2.3 White Blood Count 36.3 H 40.1 H Red Blood Count 1.60 L 2.23 #L Hemoglobin 5.6 *L 7.4 #L Hematocrit 17.1 L 21.4 #L Mean Corpuscular Volume 106.9 H 96.0 Mean Corpuscular Hemoglobin 35.0 H 33.2 H Mean Corpuscular Hemoglobin Concent 32.7 34.6 Red Cell Distribution Width 28.0 H 25.2 H Platelet Count 138 #L 50 #L Mean Platelet Volume 10.5 #H 11.2 H Neutrophils % 85.7 H Segmented Neutrophils % (Manual) 81 H Band Neutrophils % (Manual) 7 H Lymphocytes % (Manual) 8 L Monocytes % (Manual) 4 Eosinophils % 0.0 Nucleated Red Blood Cells % 16 H 15.2 H Neutrophils # 34.4 H Neutrophils # (Manual) 30.3 H Band Neutrophils # 2.5 H Absolute Lymphocytes (Manual) 2.9 Lymphocytes # 2.9 1.7 Monocytes # 1.5 H 2.1 H Absolute Monocytes (Manual) 1.4 H Eosinophils # 0.0 Macrocytosis 1+ Prothrombin Time 30.3 #H 27.1 H Prothrombin Time Ratio 2.4 2.1 INR International Normalized Ratio 2.85 2.48 Activated Partial Thromboplast Time 64.9 H Sodium Level 147 H 147 H Potassium Level 4.7 3.9 Chloride Level 113 H 105 Carbon Dioxide Level 12 L 23 # Anion Gap 27 H 23 H Blood Urea Nitrogen 102 H 69 #H Creatinine 2.81 H 1.99 H Glucose Level 328 H 260 H Total Bilirubin 29.5 #H 30.7 H Direct Bilirubin 25.80 *H 26.20 *H Indirect Bilirubin 3.7 H 4.5 H Aspartate Amino Transf (AST/SGOT) 674 #H 733 H Alanine Aminotransferase (ALT/SGPT) 147 H 157 H Alkaline Phosphatase 405 H 416 H Lactate Dehydrogenase 2549 #H 2942 H Total Protein 5.1 L 5.5 L Albumin 2.5 L 2.7 L Globulin 2.60 2.80 Albumin/Globulin Ratio 0.96 0.96 Blood Gas Specimen Source Blood arterial Arterial Blood Date Drawn 02/10/2017 8:29:38 PM Arterial Blood pH (Temp corrected) 7.290 *L Arterial Blood pCO2 (Temp correct) 24.9 L Arterial Blood pO2 (Temp corrected) 51.7 *L Arterial Blood HCO3 11.7 L Arterial Blood Base Excess -13.6 L Arterial Blood Oxygen Saturation 79.0 L Prateek Test N/A Arterial Blood Gas Puncture Site Right Brachial Arterial Blood Carboxyhemoglobin 3.5 H Arterial Blood Methemoglobin 0.8 Blood Gas A-a O2 Differential 132.9 H Oxyhemoglobin Percent 75.6 L Total Hemoglobin 6.3 L Blood Gas Temperature 37.0 Blood Gas Respiration Rate 14.0 Blood Gas Actual Respiration Rate 32 Blood Gas Modality VENT - AC FiO2 30.0 Blood Gas Tidal Volume 550.0 Blood Gas Low PEEP Setting 5.0 Blood Gas Inspiratory Pressure 17.0 Blood Gas Critical Value Read Back Jani TAYLOR R.N. Blood Gas Notified Whom LW Blood Gas Notified Time 02/10/2017 8:40:55 PM Lymphocytes % 4.1 L Monocytes % 5.2 Basophils % 0.2 Basophils # 0.1 Nucleated Red Blood Cells # 6.1 H Test 02/11/17 01:30 02/11/17 05:06 02/11/17 06:00 02/11/17 08:44 Blood Gas Specimen Source Blood arterial Blood arterial Arterial Blood Date Drawn 02/11/2017 1:44:23 AM 02/11/2017 5:47:02 AM Arterial Blood pH (Temp corrected) 7.501 H 7.553 *H Arterial Blood pCO2 (Temp correct) 26.3 L 26.5 L Arterial Blood pO2 (Temp corrected) 74.3 L 78.9 L Arterial Blood HCO3 20.1 L 22.8 Arterial Blood Base Excess -2.3 0.9 Arterial Blood Oxygen Saturation 95.1 95.9 Prateek Test ACCEPTAB ACCEPTAB Arterial Blood Gas Puncture Site Right Radial Right Radial Arterial Blood Carboxyhemoglobin 1.7 1.7 Arterial Blood Methemoglobin 0.2 0.4 Blood Gas A-a O2 Differential 324.6 H 103.9 H Oxyhemoglobin Percent 93.3 93.9 Total Hemoglobin 8.7 L 8.3 L Blood Gas Temperature 37.0 37.0 Blood Gas Respiration Rate 14.0 14.0 Blood Gas Actual Respiration Rate 26 23 Blood Gas Modality VENT - AC VENT - AC FiO2 60.0 30.0 Blood Gas Tidal Volume 550.0 550.0 Blood Gas Low PEEP Setting 5.0 5.0 Blood Gas Notified Whom YAYA TUTTLE RCP Blood Gas Notified Time 02/11/2017 1:55:07 AM 02/11/2017 5:58:10 AM Lab Scanned Report BLOOD TRANSFUSION White Blood Count 39.6 H Red Blood Count 2.24 L Hemoglobin 7.3 L Hematocrit 21.2 L Mean Corpuscular Volume 94.6 Mean Corpuscular Hemoglobin 32.6 Mean Corpuscular Hemoglobin Concent 34.4 Red Cell Distribution Width 25.8 H Platelet Count 49 L Mean Platelet Volume 11.0 H Neutrophils % Lymphocytes % Monocytes % Eosinophils % Basophils % Nucleated Red Blood Cells % 17.6 H Neutrophils # Lymphocytes # Monocytes # Eosinophils # Basophils # Nucleated Red Blood Cells # Prothrombin Time 27.7 H Prothrombin Time Ratio 2.2 INR International Normalized Ratio 2.54 Blood Gas Critical Value Read Back LINDY RN Sodium Level 146 H Potassium Level 3.8 Chloride Level 104 Carbon Dioxide Level 24 Anion Gap 22 H Blood Urea Nitrogen 77 H Creatinine 2.45 H Glucose Level 227 H Calcium Level 7.6 L Total Bilirubin 31.3 H Direct Bilirubin 26.80 *H Indirect Bilirubin 4.5 H Aspartate Amino Transf (AST/SGOT) 700 H Alanine Aminotransferase (ALT/SGPT) 146 H Alkaline Phosphatase 414 H Lactate Dehydrogenase 2578 H Total Protein 5.2 L Albumin 2.4 L Globulin 2.80 Albumin/Globulin Ratio 0.85 Bedside Glucose 124 Test 02/11/17 10:12 02/11/17 12:20 02/11/17 13:40 02/11/17 13:41 White Blood Count 36.9 H 36.0 H Red Blood Count 2.16 L 2.55 L Hemoglobin 7.2 L 8.3 L Hematocrit 20.5 L 23.7 L Mean Corpuscular Volume 94.9 92.9 Mean Corpuscular Hemoglobin 33.3 H 32.5 Mean Corpuscular Hemoglobin Concent 35.1 35.0 Red Cell Distribution Width 26.9 H 24.8 H Platelet Count 49 L 32 #L Mean Platelet Volume Neutrophils % 87.7 H 87.8 H Lymphocytes % 2.0 L 1.8 L Monocytes % 5.4 4.7 Eosinophils % 0.0 0.0 Basophils % 0.2 0.3 Nucleated Red Blood Cells % 19.8 H 18.9 H Neutrophils # 32.4 H 31.6 H Lymphocytes # 0.7 L 0.7 L Monocytes # 2.0 H 1.7 H Eosinophils # 0.0 0.0 Basophils # 0.1 0.1 Nucleated Red Blood Cells # 7.3 H 6.8 H Prothrombin Time 30.3 H Prothrombin Time Ratio 2.4 INR International Normalized Ratio 2.85 Sodium Level 149 H 149 H 148 H Potassium Level 3.9 3.1 L Chloride Level 107 106 Carbon Dioxide Level 24 28 Anion Gap 22 H 17 H Blood Urea Nitrogen 78 H 55 H Creatinine 1.78 H Glucose Level 116 # 113 Calcium Level 7.7 L 8.3 L Lactate Dehydrogenase 2292 H Total Bilirubin 31.6 H Direct Bilirubin 26.70 *H Indirect Bilirubin 4.9 H Aspartate Amino Transf (AST/SGOT) 646 H Alanine Aminotransferase (ALT/SGPT) 133 H Alkaline Phosphatase 431 H Total Protein 5.2 L Albumin 2.6 L Globulin 2.60 Albumin/Globulin Ratio 1.00 Test 02/11/17 13:45 Prothrombin Time 30.4 H Prothrombin Time Ratio 2.4 INR International Normalized Ratio 2.86 Lactic Acid Level 3.7 *H Medications Medications Current Medications Ondansetron HCl (Zofran Inj) 4 mg Q6H PRN IV NAUSEA AND/OR VOMITING Last administered on 01/03/17 14:52; Admin Dose 4 MG; Start 01/02/17 at 23:00 IV Flush (NS 10 ml) 10 ml PRN PRN IV IV PROTOCOL; Start 01/05/17 at 18:30 Nystatin (Nystatin Susp) 5 ml QID PO Last administered on 02/11/17 14:47; Admin Dose 5 ML; Start 01/13/17 at 17:00 Glucose (Glutose) 15 gm Q15M PRN PO DECREASED GLUCOSE; Start 01/15/17 at 18:30 Glucose (Glutose) 22.5 gm Q15M PRN PO DECREASED GLUCOSE; Start 01/15/17 at 18: 30 Dextrose (D50w Syringe) 25 ml Q15M PRN IV DECREASED GLUCOSE; Start 01/15/17 at 18:30 Dextrose (D50w Syringe) 50 ml Q15M PRN IV DECREASED GLUCOSE; Start 01/15/17 at 18:30 Glucagon (Glucagen) 1 mg Q15M PRN IM DECREASED GLUCOSE; Start 01/15/17 at 18:30 Glucose (Glutose) 15 gm Q15M PRN BUCCAL DECREASED GLUCOSE; Start 01/15/17 at 18 :30 Folic Acid (Folic Acid) 1 mg DAILY PO Last administered on 02/11/17 08:40; Admin Dose 1 MG; Start 01/26/17 at 09:00 Thiamine HCl (Vitamin B1) 100 mg DAILY PO Last administered on 02/11/17 08:40 ; Admin Dose 100 MG; Start 01/26/17 at 09:00 Multivit/Ca Carb/ B Cmplx/FA/Prenat (Elizabeth-Kaylee) 1 tab DAILY PO Last administered on 02/11/17 08:40; Admin Dose 1 TAB; Start 01/26/17 at 09:00 Lorazepam (Ativan) 0.5 mg Q6H PRN IV AGITATION/ANXIETY Last administered on 08:59; Admin Dose 0.5 MG; Start 01/28/17 at 14:00 Famotidine 20 mg 20 mg Q12 PO Last administered on 02/11/17 08:40; Admin Dose 20 MG; Start 01/28/17 at 21:00 Norepinephrine 16 mg/Dextrose 500 ml @ 1.87 mls/hr TITRATE IV Last administered on 02/10/17 13:59; Admin Dose 20.62 MLS/HR; Start 02/10/17 at 12 :00 Meropenem/Sodium Chloride (Merrem 1 Gm/50 ml (Pmx)) 50 ml @ 100 mls/hr Q12H IVPB Last administered on 02/11/17 10:17; Admin Dose 100 MLS/HR; Start 02/10 at 09:30 Rifaximin 550 mg 550 mg BID PO Last administered on 02/11/17 08:40; Admin Dose 550 MG; Start 02/10/17 at 21:00 Phytonadione 10 mg/Dextrose 51 ml @ 102 mls/hr ONCE ONCE IVPB ; Start at 11:30; Stop 02/12/17 at 11:59 Vancomycin HCl 1 gm/Dextrose 250 ml @ 125 mls/hr Q36H IVPB ; Start 02/12/17 at 02:00 Albumin Human (Albumin Human 25%) 100 ml @ 100 mls/hr Q8H IV Last administered on 02/11/17 14:47; Admin Dose 100 MLS/HR; Start 02/11/17 at 07: 00; Stop 02/11/17 at 23:59 Diagnostic Test (Pha) (Accu-Chek) 1 ea 02 XX ; Start 02/12/17 at 02:00 Prednisolone (Prelone (Ped)) 35 mg DAILY PO Last administered on 02/11/17 10: 17; Admin Dose 35 MG; Start 02/11/17 at 09:00 LAURA CORDERO MD Feb 11, 2017 15:33
[2017-02-11] MEDS ORDERED: POTASSIUM CHLORIDE 250 ML IVPB ONE (16:30)
--- NOTE | 2017-02-11 16:43 | PN ---
Date/Time of Note Date/Time of Note DATE: 02/11/17 TIME: 16:36 Assessment/Plan VTE Prophylaxis VTE Prophylaxis Intervention: contraindicated Lines/Catheters IV Catheter Type (from Nrs): PICC Line (Farzad) Central line still needed: Yes Urinary Cath still in place: Yes Reason Cath still needed: urinary retention Assessment/Plan Chief Complaint/Hosp Course 36 y/o with # Respiratory failure s/p Intubation on 02/11 # Shock now on Levophed 8 >titrating down # AMS now could be due to metabolic due to hypernatremia/uremia /hepatic encephalopathy which could be due to dehydration/diarhhoea # Elevated bun/cr ratio with worsening acidosis could be due dehydration/ diarrhoea # Non gap worsening Acidosis could be due to Renal failure/diarrhoea started on HD on 02/10 # NICOLAS likely Oliguric ATN vs HRS > Cr 1.85>1.9 now in shock # Acute on chronic liver failure with alcholic hepatitis due to Etoh abuse with elevated INR, Hyperbilirubenemia, low platelets, elevated bilirubin unable to respond to Prednisolone x Trental for 1 month # Hepatic encephalopathy # hx ETOH withdrawal on Ativan/librium tapered off # hx ETOH pancreatitis with Lipase 7690> trending down to 2000> trended down siginificantly # hx Leukocytosis now likely to steroids/Alcholic Hepatitis # hx Hypoxic Respiratory failure s/p Intubation now extubated on 01/15 # Thrombocytopenia likely secondary to Cirrhosis # Anemia likely hemodilutional : no evidence of bleeding s/p EGD with gastritis and gastroparesis on PPI and Reglan # s/P EGD with gastritis and gastroparesis on Protonix and Reglan # Ileus s/p Small bowel follow thru which is negative, f/u Surgery # Ascites s/p paracentesis with +SBP s/p repeat paracentesis on 02/02 Plan - s/p HD x2 Sessions with improvement in acidosis> alkalemic - Monitor UOP - Will assess dailly for HD needs - CMP and CBC q12( use paed tubes) - PT/INR checks q6 - 1 unit PRBC today with HD - c/w Vit K - c/w Vancomycin/Meropenam - c/w TF Nephro - Gentle repeletion of K today - Albumin today - Decrease Prednisone to 35 mg - Avoid Ativan/morphine - C/W Rifaximin and restart Lactulose - Pt will need transfer to Liver tranplant center Problems: Subjective 24 Hr Interval Summary Free Text/Dictation Improved since yesterday s/p HD X1 yesterday and x2 today this am Pt opens eyes and pupils reactive to light Started on TF Exam/Review of Systems Vital Signs Vitals Vital Signs Date Time Temp Pulse Resp B/P Pulse Ox O2 Delivery O2 Flow Rate FiO2 02/11/17 14:15 84 25 99 02/11/17 14:00 107/56 Mechanical Ventilator 02/11/17 12:00 98.4 02/11/17 08:00 60 Intake and Output 02/10/17 02/10/17 02/11/17 15:00 23:00 07:00 Intake Total 1140.990 ml 3655.495 ml 1994.99 ml Output Total 110 ml 1000 ml Balance 1030.990 ml 3655.495 ml 994.99 ml Exam GNERAL: Intubated , not on any sedation HEENT: Head atraumatic, normocephalic. Sclerae icteric . Buccal mucosa dry. NECK: Supple. CHEST: Rise symmetrical. Breath sounds diminished to bases. HEART: S1, S2. ABDOMEN: Distended, soft. Bowel tones present.ascites+ EXTREMITIES: With trace edema. [place] in place PICC line Rt Farzad Results Result Diagram: 02/11/17 1341 02/11/17 1340 Results 24 hrs Laboratory Tests Test 02/10/17 17:09 02/10/17 18:43 02/10/17 19:35 02/11/17 01:20 Calcium Level 8.1 L 7.6 L 7.9 L Phosphorus Level 9.5 #H Magnesium Level 2.3 White Blood Count 36.3 H 40.1 H Red Blood Count 1.60 L 2.23 #L Hemoglobin 5.6 *L 7.4 #L Hematocrit 17.1 L 21.4 #L Mean Corpuscular Volume 106.9 H 96.0 Mean Corpuscular Hemoglobin 35.0 H 33.2 H Mean Corpuscular Hemoglobin Concent 32.7 34.6 Red Cell Distribution Width 28.0 H 25.2 H Platelet Count 138 #L 50 #L Mean Platelet Volume 10.5 #H 11.2 H Neutrophils % 85.7 H Segmented Neutrophils % (Manual) 81 H Band Neutrophils % (Manual) 7 H Lymphocytes % (Manual) 8 L Monocytes % (Manual) 4 Eosinophils % 0.0 Nucleated Red Blood Cells % 16 H 15.2 H Neutrophils # 34.4 H Neutrophils # (Manual) 30.3 H Band Neutrophils # 2.5 H Absolute Lymphocytes (Manual) 2.9 Lymphocytes # 2.9 1.7 Monocytes # 1.5 H 2.1 H Absolute Monocytes (Manual) 1.4 H Eosinophils # 0.0 Macrocytosis 1+ Prothrombin Time 30.3 #H 27.1 H Prothrombin Time Ratio 2.4 2.1 INR International Normalized Ratio 2.85 2.48 Activated Partial Thromboplast Time 64.9 H Sodium Level 147 H 147 H Potassium Level 4.7 3.9 Chloride Level 113 H 105 Carbon Dioxide Level 12 L 23 # Anion Gap 27 H 23 H Blood Urea Nitrogen 102 H 69 #H Creatinine 2.81 H 1.99 H Glucose Level 328 H 260 H Total Bilirubin 29.5 #H 30.7 H Direct Bilirubin 25.80 *H 26.20 *H Indirect Bilirubin 3.7 H 4.5 H Aspartate Amino Transf (AST/SGOT) 674 #H 733 H Alanine Aminotransferase (ALT/SGPT) 147 H 157 H Alkaline Phosphatase 405 H 416 H Lactate Dehydrogenase 2549 #H 2942 H Total Protein 5.1 L 5.5 L Albumin 2.5 L 2.7 L Globulin 2.60 2.80 Albumin/Globulin Ratio 0.96 0.96 Blood Gas Specimen Source Blood arterial Arterial Blood Date Drawn 02/10/2017 8:29:38 PM Arterial Blood pH (Temp corrected) 7.290 *L Arterial Blood pCO2 (Temp correct) 24.9 L Arterial Blood pO2 (Temp corrected) 51.7 *L Arterial Blood HCO3 11.7 L Arterial Blood Base Excess -13.6 L Arterial Blood Oxygen Saturation 79.0 L Prateek Test N/A Arterial Blood Gas Puncture Site Right Brachial Arterial Blood Carboxyhemoglobin 3.5 H Arterial Blood Methemoglobin 0.8 Blood Gas A-a O2 Differential 132.9 H Oxyhemoglobin Percent 75.6 L Total Hemoglobin 6.3 L Blood Gas Temperature 37.0 Blood Gas Respiration Rate 14.0 Blood Gas Actual Respiration Rate 32 Blood Gas Modality VENT - AC FiO2 30.0 Blood Gas Tidal Volume 550.0 Blood Gas Low PEEP Setting 5.0 Blood Gas Inspiratory Pressure 17.0 Blood Gas Critical Value Read Back Jani TAYLOR R.N. Blood Gas Notified Whom YAYA Blood Gas Notified Time 02/10/2017 8:40:55 PM Lymphocytes % 4.1 L Monocytes % 5.2 Basophils % 0.2 Basophils # 0.1 Nucleated Red Blood Cells # 6.1 H Test 02/11/17 01:30 02/11/17 05:06 02/11/17 06:00 02/11/17 08:44 Blood Gas Specimen Source Blood arterial Blood arterial Arterial Blood Date Drawn 02/11/2017 1:44:23 AM 02/11/2017 5:47:02 AM Arterial Blood pH (Temp corrected) 7.501 H 7.553 *H Arterial Blood pCO2 (Temp correct) 26.3 L 26.5 L Arterial Blood pO2 (Temp corrected) 74.3 L 78.9 L Arterial Blood HCO3 20.1 L 22.8 Arterial Blood Base Excess -2.3 0.9 Arterial Blood Oxygen Saturation 95.1 95.9 Prateek Test ACCEPTAB ACCEPTAB Arterial Blood Gas Puncture Site Right Radial Right Radial Arterial Blood Carboxyhemoglobin 1.7 1.7 Arterial Blood Methemoglobin 0.2 0.4 Blood Gas A-a O2 Differential 324.6 H 103.9 H Oxyhemoglobin Percent 93.3 93.9 Total Hemoglobin 8.7 L 8.3 L Blood Gas Temperature 37.0 37.0 Blood Gas Respiration Rate 14.0 14.0 Blood Gas Actual Respiration Rate 26 23 Blood Gas Modality VENT - AC VENT - AC FiO2 60.0 30.0 Blood Gas Tidal Volume 550.0 550.0 Blood Gas Low PEEP Setting 5.0 5.0 Blood Gas Notified Whom YAYA TUTTLE [employer] Blood Gas Notified Time 02/11/2017 1:55:07 AM 02/11/2017 5:58:10 AM Lab Scanned Report BLOOD TRANSFUSION White Blood Count 39.6 H Red Blood Count 2.24 L Hemoglobin 7.3 L Hematocrit 21.2 L Mean Corpuscular Volume 94.6 Mean Corpuscular Hemoglobin 32.6 Mean Corpuscular Hemoglobin Concent 34.4 Red Cell Distribution Width 25.8 H Platelet Count 49 L Mean Platelet Volume 11.0 H Neutrophils % Lymphocytes % Monocytes % Eosinophils % Basophils % Nucleated Red Blood Cells % 17.6 H Neutrophils # Lymphocytes # Monocytes # Eosinophils # Basophils # Nucleated Red Blood Cells # Prothrombin Time 27.7 H Prothrombin Time Ratio 2.2 INR International Normalized Ratio 2.54 Blood Gas Critical Value Read Back LINDY RN Sodium Level 146 H Potassium Level 3.8 Chloride Level 104 Carbon Dioxide Level 24 Anion Gap 22 H Blood Urea Nitrogen 77 H Creatinine 2.45 H Glucose Level 227 H Calcium Level 7.6 L Total Bilirubin 31.3 H Direct Bilirubin 26.80 *H Indirect Bilirubin 4.5 H Aspartate Amino Transf (AST/SGOT) 700 H Alanine Aminotransferase (ALT/SGPT) 146 H Alkaline Phosphatase 414 H Lactate Dehydrogenase 2578 H Total Protein 5.2 L Albumin 2.4 L Globulin 2.80 Albumin/Globulin Ratio 0.85 Bedside Glucose 124 Test 02/11/17 10:12 02/11/17 12:20 02/11/17 13:40 02/11/17 13:41 White Blood Count 36.9 H 36.0 H Red Blood Count 2.16 L 2.55 L Hemoglobin 7.2 L 8.3 L Hematocrit 20.5 L 23.7 L Mean Corpuscular Volume 94.9 92.9 Mean Corpuscular Hemoglobin 33.3 H 32.5 Mean Corpuscular Hemoglobin Concent 35.1 35.0 Red Cell Distribution Width 26.9 H 24.8 H Platelet Count 49 L 32 #L Mean Platelet Volume Neutrophils % 87.7 H 87.8 H Lymphocytes % 2.0 L 1.8 L Monocytes % 5.4 4.7 Eosinophils % 0.0 0.0 Basophils % 0.2 0.3 Nucleated Red Blood Cells % 19.8 H 18.9 H Neutrophils # 32.4 H 31.6 H Lymphocytes # 0.7 L 0.7 L Monocytes # 2.0 H 1.7 H Eosinophils # 0.0 0.0 Basophils # 0.1 0.1 Nucleated Red Blood Cells # 7.3 H 6.8 H Prothrombin Time 30.3 H Prothrombin Time Ratio 2.4 INR International Normalized Ratio 2.85 Sodium Level 149 H 149 H 148 H Potassium Level 3.9 3.1 L Chloride Level 107 106 Carbon Dioxide Level 24 28 Anion Gap 22 H 17 H Blood Urea Nitrogen 78 H 55 H Creatinine 1.78 H Glucose Level 116 # 113 Calcium Level 7.7 L 8.3 L Lactate Dehydrogenase 2292 H Total Bilirubin 31.6 H Direct Bilirubin 26.70 *H Indirect Bilirubin 4.9 H Aspartate Amino Transf (AST/SGOT) 646 H Alanine Aminotransferase (ALT/SGPT) 133 H Alkaline Phosphatase 431 H Total Protein 5.2 L Albumin 2.6 L Globulin 2.60 Albumin/Globulin Ratio 1.00 Test 02/11/17 13:45 Prothrombin Time 30.4 H Prothrombin Time Ratio 2.4 INR International Normalized Ratio 2.86 Lactic Acid Level 3.7 *H Medications Medications Current Medications Ondansetron HCl (Zofran Inj) 4 mg Q6H PRN IV NAUSEA AND/OR VOMITING Last administered on 01/03/17 14:52; Admin Dose 4 MG; Start 01/02/17 at 23:00 IV Flush (NS 10 ml) 10 ml PRN PRN IV IV PROTOCOL; Start 01/05/17 at 18:30 Nystatin (Nystatin Susp) 5 ml QID PO Last administered on 02/11/17 14:47; Admin Dose 5 ML; Start 01/13/17 at 17:00 Glucose (Glutose) 15 gm Q15M PRN PO DECREASED GLUCOSE; Start 01/15/17 at 18:30 Glucose (Glutose) 22.5 gm Q15M PRN PO DECREASED GLUCOSE; Start 01/15/17 at 18: 30 Dextrose (D50w Syringe) 25 ml Q15M PRN IV DECREASED GLUCOSE; Start 01/15/17 at 18:30 Dextrose (D50w Syringe) 50 ml Q15M PRN IV DECREASED GLUCOSE; Start 01/15/17 at 18:30 Glucagon (Glucagen) 1 mg Q15M PRN IM DECREASED GLUCOSE; Start 01/15/17 at 18:30 Glucose (Glutose) 15 gm Q15M PRN BUCCAL DECREASED GLUCOSE; Start 01/15/17 at 18 :30 Folic Acid (Folic Acid) 1 mg DAILY PO Last administered on 02/11/17 08:40; Admin Dose 1 MG; Start 01/26/17 at 09:00 Thiamine HCl (Vitamin B1) 100 mg DAILY PO Last administered on 02/11/17 08:40 ; Admin Dose 100 MG; Start 01/26/17 at 09:00 Multivit/Ca Carb/ B Cmplx/FA/Prenat (Elizabeth-Kaylee) 1 tab DAILY PO Last administered on 02/11/17 08:40; Admin Dose 1 TAB; Start 01/26/17 at 09:00 Lorazepam (Ativan) 0.5 mg Q6H PRN IV AGITATION/ANXIETY Last administered on 08:59; Admin Dose 0.5 MG; Start 01/28/17 at 14:00 Famotidine 20 mg 20 mg Q12 PO Last administered on 02/11/17 08:40; Admin Dose 20 MG; Start 01/28/17 at 21:00 Norepinephrine 16 mg/Dextrose 500 ml @ 1.87 mls/hr TITRATE IV Last administered on 02/10/17 13:59; Admin Dose 20.62 MLS/HR; Start 02/10/17 at 12 :00 Meropenem/Sodium Chloride (Merrem 1 Gm/50 ml (Pmx)) 50 ml @ 100 mls/hr Q12H IVPB Last administered on 02/11/17 10:17; Admin Dose 100 MLS/HR; Start 02/10 at 09:30 Rifaximin 550 mg 550 mg BID PO Last administered on 02/11/17 08:40; Admin Dose 550 MG; Start 02/10/17 at 21:00 Phytonadione 10 mg/Dextrose 51 ml @ 102 mls/hr ONCE ONCE IVPB ; Start at 11:30; Stop 02/12/17 at 11:59 Vancomycin HCl 1 gm/Dextrose 250 ml @ 125 mls/hr Q36H IVPB ; Start 02/12/17 at 02:00 Albumin Human (Albumin Human 25%) 100 ml @ 100 mls/hr Q8H IV Last administered on 02/11/17 14:47; Admin Dose 100 MLS/HR; Start 02/11/17 at 07: 00; Stop 02/11/17 at 23:59 Diagnostic Test (Pha) (Accu-Chek) 1 ea 02 XX ; Start 02/12/17 at 02:00 Prednisolone 35 mg 35 mg DAILY PO Last administered on 02/11/17 10:17; Admin Dose 35 MG; Start 02/11/17 at 09:00 Potassium Chloride (KCl 40 MEQ/250 ML NS) 250 ml @ 62.5 mls/hr ONCE ONCE IVPB ; Start 02/11/17 at 16:30; Stop 02/11/17 at 20:29 BRAEDEN LUNSFORD MD Feb 11, 2017 16:43
--- NOTE | 2017-02-11 17:47 | PN ---
Date/Time of Note Date/Time of Note DATE: 02/11/17 TIME: 17:38 Assessment/Plan Lines/Catheters IV Catheter Type (from [facility] [[email or web address] PICC Line (Farzad) Minaya in Place (from [facility] [[email or web address] Yes Assessment/Plan Chief Complaint/Hosp Course 1. Sepsis with shock (ddx: pna, aspiration, abdominal, urine, blood, other) -supportive -abx -cxs -eventual ct 2. Acute on chronic alcoholic pancreatitis with peripancreatic fluid -Supportive measures -Judicious fluid management -Trend labs -Encourage alcohol cessation 3. Acute GI bleed from gastritis and esophageal varices secondary to alcoholism. Stable -Transfuse as needed -Supportive measures: ppi -Correct coagulopathy and platelet dysfunction 4. Anemia secondary to above: h/h stable -As above 5. Leukocytosis, multifactorial with SIRS and steroid therapy -Close monitoring -follow ascitic fluid studies 6. Alcoholic hepatitis with hepatosplenomegaly, ascites; elevated LFT's; s/p multiple paracentesis; possible transfer to tertiary center. -Medical and GI optimization -transfer to tertiary center 7. Chronic alcohol abuse with Delirium Tremens; no tremors -Encourage cessation -Sedation/intubation 8. Subcapsular liver collection possible hematoma versus other -Monitor 9. Electrolyte imbalance; persistent hypernatremia -Correct with replacements and fluid management 10. NICOLAS: -judicious fluids -avoid nephrotoxic meds 11. Atelectasis vs. pna -IS 12. Paralytic ileus 2nd acute processes. SBFT negative. resolved; +bowel function -Monitor Thank you, Problems: Subjective 24 Hr Interval Summary Mental status, decreased respiratory function, bradycardia, hypotension, and reintubated in ICU on pressor improved since yesterday after HD and abx. Leukocytosis persisting. No fevers, chills, sob, congested cough, cp, palpitations, bateman, dizziness, n/v/d/dysuria. s/p Right IJ farzad 02/10 Exam/Review of Systems Vital Signs Vitals Vital Signs Date Time Temp Pulse Resp B/P Pulse Ox O2 Delivery O2 Flow Rate FiO2 02/11/17 16:00 80 02/11/17 14:15 25 99 02/11/17 14:00 107/56 Mechanical Ventilator 02/11/17 12:00 98.4 02/11/17 08:00 60 Intake and Output 02/10/17 02/10/1702/11/17 15:00 23:00 07:00 Intake Total 1140.990 ml 3655.495 ml 1994.99 ml Output Total 110 ml 1000 ml Balance 1030.990 ml 3655.495 ml 994.99 ml Exam Free Text/Dictation Constitutional: Not oriented, sedated on vent Psych: No nl mood/affect Head: atraumatic, normocephalic, No hematomas, No lacerations Eyes: EOMI, PERRL, icteric ENMT: nl external ears & nose, nl lips & teeth. Mucosa pink and dry. Icteric. Right IJ farzad. Neck: non-tender, supple, No jvd Respiratory: No congested cough, No labored breathing Cardiovascular: No edema, No regular rate and rhythm Gastrointestinal: soft, non tender, mod distended. No rebound, rigidity, nor guarding Musculoskeletal: nl extremities to inspection, No joint tenderness; BLE edema Extremities: normal pulses, No calf tenderness, No cyanosis Neurological: Responsive Skin: rash or lesions (Jaundice), No diaphoresis, No nl turgor : minaya with luis output Lymph: nl lymph nodes, nontender Results Result Diagram: 02/11/17 1341 02/11/17 1340 PETER TAMEZ MD Feb 11, 2017 17:47
[2017-02-11 18:08] LABS: ABNORMAL IP MESSAGE 1; HEMATOCRIT 23.8 % (42.0-52.0); HEMOGLOBIN 8.5 g/dl (14.0-18.0); MEAN CORPUSCULAR HEMOGLOBIN 33.2 pg (29.0-33.0); MEAN CORPUSCULAR HGB CONC 35.7 g/dl (32.0-37.0); POSITIVE DIFF @See below; RED BLOOD COUNT 2.56 10^6/ul (4.70-6.10); RED CELL DISTRIBUTION WIDTH 24.9 % (11.5-14.5)
[2017-02-11 18:22] LABS: WHITE BLOOD COUNT 35.6 10^3/ul (4.8-10.8)
[2017-02-11 18:23] LABS: PLATELET COUNT 27 10^3/UL (140-415)
[2017-02-11 18:24] LABS: INR 3.17; PT RATIO 2.6
[2017-02-11 18:28] LABS: CALCIUM 8.3 mg/dl (8.4-10.2); POTASSIUM 3.5 mmol/L (3.5-5.1)
[2017-02-11] MEDS: LACTULOSE 30ML CUP PO SCH ×2 (18:33→23:03)
[2017-02-11 18:36] LABS: CREATININE 2.3 mg/dl (0.61-1.24)
[2017-02-11 19:07] LABS: ACANTHOCYTES 2+ (0-0); ANISOCYTOSIS 2+ (0-0); BURR CELLS 1+ (0-0); ERYTHROBLAST% (NRBC) (M) 31 % (0-0); GIANT THROMBO% (M) 1 % (0-0); MICROCYTOSIS 1+ (0-0); MONOCYTES % (M) 1 % (0-11); OVALOCYTES 1+ (0-0); POIKILOCYTOSIS 3+ (0-0); SCHISTOCYTES 1+ (0-0); SPHEROCYTES 1+ (0-0); TARGET CELLS 1+ (0-0)
[2017-02-12] VITALS (91 sets, daily range): BP systolic 45–195; BP diastolic 21–161; PULSE 65–111; RESP 19–37
[2017-02-12] MEDS: ACCU-CHEK XX SCH (01:20)
[2017-02-12] MEDS ORDERED: ACCU-CHEK XX SCH (02:00)
[2017-02-12] MEDS ORDERED: VANCOMYCIN 1 GM in DEXTROSE 5% 250 ML IVPB SCH (02:00)
[2017-02-12 03:18] LABS: AADO2 Arterial 109.4 mmHg (7.0-24.0); Allen Test ACCEPTAB; Arterial Base Excess -0.6 mmol/L (-3.0-3); Arterial COHb 0.7 % (0.0-3.0); Arterial Fraction of Oxyhgb 95.7 % (93.0-99.0); Arterial HCO3 21.3 mmol/L (22.0-26.0); Arterial MetHb 0.3 % (0.0-1.5); Arterial Total Hemglobin 5.4 g/dl (12.0-18.0); MODE VENT - AC
[2017-02-12 03:27] LABS: INR 4.25; PROTIME 41.6 Sec (12.2-14.2); PT RATIO 3.3
[2017-02-12] MEDS ORDERED: PHENYLephrine 10 MG INJ ONE (03:52)
[2017-02-12] MEDS ORDERED: PHENYLephrine 20MG IN 250 ML 0 ML ONE (03:52)
[2017-02-12] MEDS: PROPOFOL 100 ML IV SCH ×3 (04:00→15:48)
[2017-02-12] MEDS ORDERED: ALBUMIN HUMAN 25% 100 ML ONE (04:20)
[2017-02-12] MEDS: ALBUMIN HUMAN 25% 100 ML IV SCH ×5 (04:53→20:47)
[2017-02-12] MEDS ORDERED: HYDROCORTISONE 100 MG INJ IV ONE (05:00)
--- NOTE | 2017-02-12 05:05 | RADRPT ---
PROCEDURE: Chest. CLINICAL INDICATION: Shortness of breath. TECHNIQUE: Single frontal view of the chest was obtained. COMPARISON: 02/10/2017. FINDINGS: There is an endotracheal tube 3.5 cm above the simeon. There is a nasogastric tube extending to the stomach. There is a left-sided PICC line extending to the SVC/RA junction. There is a right-sided ce ntral venous cath extending to the right atrium. The cardiac silhouette is within normal limits. Th e aortic arch is unremarkable. There is mild pulmonary venous congestion. There is mild bibasilar a telectasis and right basilar infiltrate. There is no pneumothorax. IMPRESSION: Mild pulmonary venous congestion, decreased. Mild bibasilar atelectasis and right basilar infiltrate, decreased. Tubes and lines unchanged. .Phill Suazo MD, MD Date Time Electronically viewed and signed by .Phill Suazo MD, MD on 02/12/2017 05:04 .T/
--- NOTE | 2017-02-12 05:06 | RADRPT ---
PROCEDURE: XR Abdomen. CLINICAL INDICATION: Abdominal pain. TECHNIQUE: 2 frontal views of the abdomen. COMPARISON: 01/09/2017. FINDINGS: There is a nasogastric tube extending to the stomach. A Carolina catheter is present. There is increase d opacification of the abdomen consistent with ascites. There is no bowel obstruction or free air. There is no organomegaly. There is no abnormal calcification. The osseous structures are unremark able. IMPRESSION: Nasogastric tube in place. Moderate ascites. .Phill Suazo MD, Date Time Electronically viewed and signed by .Phill Suazo MD, MD on 02/12/2017 05:06 .T/
[2017-02-12] MEDS: VASOPRESSIN 60 UNIT in DEXTROSE 5% 57 ML IV SCH ×2 (05:08→17:16)
[2017-02-12] MEDS: PHENYLephrine 80 MG in DEXTROSE 5% 492 ML IV SCH ×3 (05:15→14:11)
[2017-02-12] MEDS ORDERED: NA BICARBONATE 8.4% 50 ML SYG ONE (05:28)
[2017-02-12] MEDS ORDERED: NA BICARBONATE 8.4% 50 ML SYG IV ONE ×2 (05:30→16:00)
[2017-02-12 05:54] LABS: ALBUMIN 2.7 g/dl (3.3-4.9); ALBUMIN/GLOBULIN RATIO 1.35; BILIRUBIN,INDIRECT 4.8 mg/dl (0-1.1); BILIRUBIN,TOTAL 25.7 mg/dl (0.2-1.3); CALCIUM 7.5 mg/dl (8.4-10.2); POTASSIUM 5.5 mmol/L (3.5-5.1); TOTAL PROTEIN 4.7 g/dl (6.1-8.1)
[2017-02-12] MEDS: LACTULOSE 30ML CUP PO SCH (05:56)
[2017-02-12 06:01] LABS: ABNORMAL IP MESSAGE 1; BILIRUBIN,DIRECT 20.9 mg/dl (0.00-0.20); HEMATOCRIT 18.4 % (42.0-52.0); MEAN CORPUSCULAR HEMOGLOBIN 32.6 pg (29.0-33.0); MEAN CORPUSCULAR HGB CONC 32.6 g/dl (32.0-37.0); NUCLEATED RED BLOOD CELLS% 22.3 /100WBC (0.0-0.0); POSITIVE DIFF @See below; RED BLOOD COUNT 1.84 10^6/ul (4.70-6.10); RED CELL DISTRIBUTION WIDTH 21.2 % (11.5-14.5); WHITE BLOOD COUNT 18.8 10^3/ul (4.8-10.8)
[2017-02-12 06:02] LABS: CREATININE 2.79 mg/dl (0.61-1.24)
[2017-02-12 06:06] LABS: PLATELET COUNT 18 10^3/UL (140-415)
[2017-02-12] MEDS ORDERED: PHENYLephrine 20MG IN 250 ML 250 ML ONE ×3 (06:22→14:03)
[2017-02-12 06:27] LABS: INR 4.49; PROTIME 43.5 Sec (12.2-14.2); PT RATIO 3.4
--- NOTE | 2017-02-12 06:29 | PN ---
Date/Time of Note Date/Time of Note DATE: 02/12/17 TIME: 06:07 Assessment/Plan VTE Prophylaxis VTE Prophylaxis Intervention: contraindicated VTE Contraindication Reason: bleeding Lines/Catheters IV Catheter Type (from Nrsg): PICC Line (PERMA CATH) Central line still needed: Yes Urinary Cath still in place: Yes Reason Cath still needed: urinary retention Assessment/Plan Chief Complaint/Hosp Course 36 y/o with # Respiratory failure s/p Intubation on 02/11 # Shock now on 3 pressors ? Hypovolemic vs Septic unlikely Cardiogenic # AMS now could be due to metabolic due to hypernatremia/uremia /hepatic encephalopathy which could be due to dehydration/diarhhoea # Elevated bun/cr ratio with worsening acidosis could be due dehydration/ diarrhoea # Non gap worsening Acidosis could be due to Renal failure/diarrhoea started on HD on 02/10 # NICOLAS likely Oliguric ATN vs HRS > Cr 1.85>1.9 now in shock # Acute on chronic liver failure with alcholic hepatitis due to Etoh abuse with elevated INR, Hyperbilirubenemia, low platelets, elevated bilirubin unable to respond to Prednisolone x Trental for 1 month # DIC? # Hepatic encephalopathy # hx ETOH withdrawal on Ativan/librium tapered off # hx ETOH pancreatitis with Lipase 7690> trending down to 2000> trended down siginificantly # hx Leukocytosis now likely to steroids/Alcholic Hepatitis # hx Hypoxic Respiratory failure s/p Intubation now extubated on 01/15 # Thrombocytopenia likely secondary to Cirrhosis # Anemia likely hemodilutional : no evidence of bleeding s/p EGD with gastritis and gastroparesis on PPI and Reglan # s/P EGD with gastritis and gastroparesis on Protonix and Reglan # Ileus s/p Small bowel follow thru which is negative, f/u Surgery # Ascites s/p paracentesis with +SBP s/p repeat paracentesis on 02/02 Plan - Stat BMP and stat CBC pending - Pt on 3 pressors spoke to family at bedside about grave prognosis, they want to try everything once - Stat Chest Xray no pneumothorax, stat KUB no perforation - Give albumin, 2 units PRBC, fluids - Hydrocortisone stat - Repeat ABG again, - Cannot do HD as pt is unstable - Propofol when BP stable - Spoke to Dr Birch - PT/INR checks q4 - c/w Vancomycin/Meropenam - Hold feeding - c/w prednisone - Spoke to family ( mother at bedside), full code for now Problems: Subjective 24 Hr Interval Summary Free Text/Dictation Pt had eventful course tonight Around 2.30-3 , Bp dropped to 80's Started on levophed, Neospherine and Vaso Exam/Review of Systems Vital Signs Vitals Vital Signs Date Time Temp Pulse Resp B/P Pulse Ox O2 Delivery O2 Flow Rate FiO2 02/12/17 05:52 87 33 97 40 02/12/17 03:00 98.9 88/56 Mechanical Ventilator Intake and Output 02/11/17 02/11/17 02/12/17 15:00 23:00 07:00 Intake Total 1166.86 ml 430.0 ml 140 ml Output Total 1035 ml 12 ml Balance 131.86 ml 418.0 ml 140 ml Exam GNERAL: Intubated , tacypnc HEENT: Pupils reactive to light L more dilated then right , pt withdraws with flash light NECK: Supple. CHEST: Rise symmetrical. Breath sounds diminished to bases. HEART: S1, S2. ABDOMEN: Distended, soft. Bowel tones present.ascites+ EXTREMITIES: With trace edema. Carolina in place PICC line Rt Farzad Results Result Diagram: 02/11/17 1759 02/12/17 0526 Results 24 hrs Laboratory Tests Test 02/11/17 08:44 02/11/17 10:12 02/11/17 12:20 02/11/17 13:40 Bedside Glucose 124 White Blood Count 36.9 H Red Blood Count 2.16 L Hemoglobin 7.2 L Hematocrit 20.5 L Mean Corpuscular Volume 94.9 Mean Corpuscular Hemoglobin 33.3 H Mean Corpuscular Hemoglobin Concent 35.1 Red Cell Distribution Width 26.9 H Platelet Count 49 L Mean Platelet Volume Neutrophils % 87.7 H Lymphocytes % 2.0 L Monocytes % 5.4 Eosinophils % 0.0 Basophils % 0.2 Nucleated Red Blood Cells % 19.8 H Neutrophils # 32.4 H Lymphocytes # 0.7 L Monocytes # 2.0 H Eosinophils # 0.0 Basophils # 0.1 Nucleated Red Blood Cells # 7.3 H Prothrombin Time 30.3 H Prothrombin Time Ratio 2.4 INR International Normalized Ratio 2.85 Sodium Level 149 H 149 H 148 H Potassium Level 3.9 3.1 L Chloride Level 107 106 Carbon Dioxide Level 24 28 Anion Gap 22 H 17 H Blood Urea Nitrogen 78 H 55 H Creatinine 1.78 H Glucose Level 116 # 113 Calcium Level 7.7 L 8.3 L Lactate Dehydrogenase 2292 H Total Bilirubin 31.6 H Direct Bilirubin 26.70 *H Indirect Bilirubin 4.9 H Aspartate Amino Transf (AST/SGOT) 646 H Alanine Aminotransferase (ALT/SGPT) 133 H Alkaline Phosphatase 431 H Total Protein 5.2 L Albumin 2.6 L Globulin 2.60 Albumin/Globulin Ratio 1.00 Test 02/11/17 13:41 02/11/17 13:45 02/11/17 17:59 02/11/17 18:00 White Blood Count 36.0 H 35.6 H Red Blood Count 2.55 L 2.56 L Hemoglobin 8.3 L 8.5 L Hematocrit 23.7 L 23.8 L Mean Corpuscular Volume 92.9 93.0 Mean Corpuscular Hemoglobin 32.5 33.2 H Mean Corpuscular Hemoglobin Concent 35.0 35.7 Red Cell Distribution Width 24.8 H 24.9 H Platelet Count 32 #L 27 *L Mean Platelet Volume Neutrophils % 87.8 H Lymphocytes % 1.8 L Monocytes % 4.7 Eosinophils % 0.0 Basophils % 0.3 Nucleated Red Blood Cells % 18.9 H 31 H Neutrophils # 31.6 H Lymphocytes # 0.7 L Monocytes # 1.7 H Eosinophils # 0.0 Basophils # 0.1 Nucleated Red Blood Cells # 6.8 H Prothrombin Time 30.4 H 33.0 H Prothrombin Time Ratio 2.4 2.6 INR International Normalized Ratio 2.86 3.17 Lactic Acid Level 3.7 *H Segmented Neutrophils % (Manual) 78 H Band Neutrophils % (Manual) 21 H Monocytes % (Manual) 1 Neutrophils # (Manual) 30.4 H Band Neutrophils # 7.4 H Absolute Monocytes (Manual) 0.3 Giant Platelets 1 H Platelet Morphology Comment @See below Poikilocytosis 3+ Basophilic Stippling 1+ Anisocytosis 2+ Microcytosis 1+ Macrocytosis 1+ Spherocytes 1+ Pappenheimer Bodies 1+ Target Cells 1+ Ovalocytes 1+ Acanthocytes 2+ Schistocytes 1+ Sodium Level 148 H Potassium Level 3.5 Chloride Level 107 Carbon Dioxide Level 29 Anion Gap 16 Blood Urea Nitrogen 71 H Creatinine 2.30 H Glucose Level 107 Calcium Level 8.3 L Test 02/11/17 20:00 02/12/17 02:50 02/12/17 03:02 02/12/17 03:09 Bedside Glucose 126 160 Prothrombin Time Pending Prothrombin Time Ratio 3.3 INR International Normalized Ratio 4.25 Blood Gas Specimen Source Blood arterial Arterial Blood Date Drawn 02/12/2017 3:07:24 AM Arterial Blood pH (Temp corrected) 7.581 *H Arterial Blood pCO2 (Temp correct) 23.2 L Arterial Blood pO2 (Temp corrected) 149.1 H Arterial Blood HCO3 21.3 L Arterial Blood Base Excess -0.6 Arterial Blood Oxygen Saturation 96.7 Prateek Test ACCEPTAB Arterial Blood Gas Puncture Site Right Radial Arterial Blood Carboxyhemoglobin 0.7 Arterial Blood Methemoglobin 0.3 Blood Gas A-a O2 Differential 109.4 H Oxyhemoglobin Percent 95.7 Total Hemoglobin 5.4 L Blood Gas Temperature 37.0 Blood Gas Respiration Rate 12.0 Blood Gas Actual Respiration Rate 32 Blood Gas Modality VENT - AC FiO2 40.0 Blood Gas Tidal Volume 500.0 Blood Gas Low PEEP Setting 5.0 Blood Gas Critical Value Read Back Lulu TAYLOR RN Blood Gas Notified Whom Nima TUTTLE RCP Blood Gas Notified Time 02/12/2017 3:18:00 AM Test 02/12/17 03:50 02/12/17 05:26 02/12/17 05:33 Ammonia 33 H White Blood Count 18.8 #H Red Blood Count 1.84 #L Hemoglobin Pending Hematocrit 18.4 #L Mean Corpuscular Volume 100.0 Mean Corpuscular Hemoglobin 32.6 Mean Corpuscular Hemoglobin Concent 32.6 Red Cell Distribution Width 21.2 H Platelet Count Pending Mean Platelet Volume Neutrophils % Lymphocytes % Monocytes % Eosinophils % Basophils % Nucleated Red Blood Cells % 22.3 H Neutrophils # Lymphocytes # Monocytes # Eosinophils # Basophils # Nucleated Red Blood Cells # Sodium Level Potassium Level 5.5 #H Chloride Level 109 Carbon Dioxide Level 14 #L Anion Gap 32 #H Blood Urea Nitrogen 71 H Creatinine 2.79 H Glucose Level 85 Calcium Level 7.5 L Total Bilirubin 25.7 #H Direct Bilirubin 20.90 *H Indirect Bilirubin 4.8 H Aspartate Amino Transf (AST/SGOT) 715 H Alanine Aminotransferase (ALT/SGPT) 152 H Alkaline Phosphatase 279 H Total Protein 4.7 L Albumin 2.7 L Globulin 2.00 Albumin/Globulin Ratio 1.35 Lab Scanned Report BLOOD TRANSFUSION Medications Medications Current Medications Ondansetron HCl (Zofran Inj) 4 mg Q6H PRN IV NAUSEA AND/OR VOMITING Last administered on 01/03/17 14:52; Admin Dose 4 MG; Start 01/02/17 at 23:00 IV Flush (NS 10 ml) 10 ml PRN PRN IV IV PROTOCOL; Start 01/05/17 at 18:30 Nystatin (Nystatin Susp) 5 ml QID PO Last administered on 02/11/17 20:32; Admin Dose 5 ML; Start 01/13/17 at 17:00 Glucose (Glutose) 15 gm Q15M PRN PO DECREASED GLUCOSE; Start 01/15/17 at 18:30 Glucose (Glutose) 22.5 gm Q15M PRN PO DECREASED GLUCOSE; Start 01/15/17 at 18: 30 Dextrose (D50w Syringe) 25 ml Q15M PRN IV DECREASED GLUCOSE; Start 01/15/17 at 18:30 Dextrose (D50w Syringe) 50 ml Q15M PRN IV DECREASED GLUCOSE; Start 01/15/17 at 18:30 Glucagon (Glucagen) 1 mg Q15M PRN IM DECREASED GLUCOSE; Start 01/15/17 at 18:30 Glucose (Glutose) 15 gm Q15M PRN BUCCAL DECREASED GLUCOSE; Start 01/15/17 at 18 :30 Folic Acid (Folic Acid) 1 mg DAILY PO Last administered on 02/11/17 08:40; Admin Dose 1 MG; Start 01/26/17 at 09:00 Thiamine HCl (Vitamin B1) 100 mg DAILY PO Last administered on 02/11/17 08:40 ; Admin Dose 100 MG; Start 01/26/17 at 09:00 Multivit/Ca Carb/ B Cmplx/FA/Prenat (Elizabeth-Kaylee) 1 tab DAILY PO Last administered on 02/11/17 08:40; Admin Dose 1 TAB; Start 01/26/17 at 09:00 Lorazepam (Ativan) 0.5 mg Q6H PRN IV AGITATION/ANXIETY Last administered on 08:59; Admin Dose 0.5 MG; Start 01/28/17 at 14:00 Famotidine 20 mg 20 mg Q12 PO Last administered on 02/11/17 20:32; Admin Dose 20 MG; Start 01/28/17 at 21:00 Norepinephrine 16 mg/Dextrose 500 ml @ 1.87 mls/hr TITRATE IV Last administered on 02/12/17 03:51; Admin Dose 56.25 MLS/HR; Start 02/10/17 at 12 :00 Meropenem/Sodium Chloride (Merrem 1 Gm/50 ml (Pmx)) 50 ml @ 100 mls/hr Q12H IVPB Last administered on 02/11/17 20:33; Admin Dose 100 MLS/HR; Start 02/10 at 09:30 Rifaximin 550 mg 550 mg BID PO Last administered on 02/11/17 20:32; Admin Dose 550 MG; Start 02/10/17 at 21:00 Phytonadione 10 mg/Dextrose 51 ml @ 102 mls/hr ONCE ONCE IVPB ; Start at 11:30; Stop 02/12/17 at 11:59 Vancomycin HCl/ Dextrose (Vancocin/D5W) 250 ml @ 125 mls/hr Q36H IVPB Last administered on 02/12/17 01:35; Admin Dose 125 MLS/HR; Start 02/12/17 at 02: 00 Diagnostic Test (Pha) (Accu-Chek) 1 ea 02 XX ; Start 02/12/17 at 02:00 Prednisolone (Prelone (Ped)) 35 mg DAILY PO Last administered on 02/11/17 10: 17; Admin Dose 35 MG; Start 02/11/17 at 09:00 Lactulose 20 gm 20 gm Q8 PO Last administered on 02/11/17 23:03; Admin Dose 20 GM; Start 02/11/17 at 17:00 Propofol 100 ml @ 2.217 mls/ hr Q12H IV Last administered on 02/12/17 05:35 ; Admin Dose 2.217 MLS/HR; Start 02/12/17 at 04:00 Phenylephrine HCl 80 mg/Dextrose 500 ml @ 37.5 mls/hr TITRATE IV Last administered on 02/12/17 05:15; Admin Dose 112.5 MLS/HR; Start 02/12/17 at 05 :00 Albumin Human 100 ml @ 100 mls/hr Q2H IV Last administered on 02/12/17 05:44 ; Admin Dose 100 MLS/HR; Start 02/12/17 at 04:30; Stop 02/12/17 at 09:29 Vasopressin/ Dextrose (Vasostrict/D5W) 60 ml @ 1.2 mls/hr Q12H IV Last administered on 02/12/17 05:08; Admin Dose 2.4 MLS/HR; Start 02/12/17 at 05: 00 BRAEDEN LUNSFORD MD Feb 12, 2017 06:29
[2017-02-12] MEDS: CALCIUM ACETATE 667 MG CAP PO SCH ×3 (07:35→17:35)
[2017-02-12 07:49] LABS: ANISOCYTOSIS 2+ (0-0); ERYTHROBLAST% (NRBC) (M) 28 % (0-0); MONOCYTES % (M) 2 % (0-11); MYELOCYTES % (M) 3 % (0-0); PLATELET ESTIMATE SIG DECREASED; POIKILOCYTOSIS 3+ (0-0); POLYCHROMASIA 1+ (0-0); PROMYELOCYTES #M 0.7 10^3/ul (0-0); PROMYELOCYTES % (M) 4 % (0-0); REACTIVE LYMPHOCYTES% (M) 1 % (0-0)
[2017-02-12] MEDS: MEROPENEM 1 GM/50ML(PMX) 50 ML IVPB SCH ×2 (09:18→20:48)
[2017-02-12] MEDS: BALSAM PERU/CASTOR OIL 60 GM TUBE TOP SCH ×2 (09:18→20:48)
[2017-02-12] MEDS: predniSOLONE (3 MG/ML PO SYG) PO SCH (09:18)
[2017-02-12] MEDS: OCTREOTIDE IVPB SCH (09:19)
[2017-02-12] MEDS: DEXTROSE 5% IVPB SCH (09:19)
[2017-02-12] MEDS: PANTOPRAZOLE IV 80 MG in DEXTROSE 5% 100 ML IVPB SCH ×2 (09:19→18:27)
[2017-02-12] MEDS: FAMOTIDINE 20 MG TAB PO SCH ×2 (09:20→20:48)
[2017-02-12] MEDS: NYSTATIN SUSP 5 ML CUP PO SCH ×4 (09:20→20:48)
[2017-02-12] MEDS: RIFAXIMIN 550 MG TAB PO SCH ×2 (09:20→20:48)
[2017-02-12] MEDS: MULTIVIT/CA CARB/B CMPLX/FA TAB PO SCH (09:20)
[2017-02-12] MEDS: THIAMINE 100 MG TAB PO SCH (09:20)
[2017-02-12] MEDS: FOLIC ACID 1 MG TAB PO SCH (09:20)
[2017-02-12] MEDS ORDERED: FACTOR VIIA 1 MG VIAL IV SCH (10:00)
[2017-02-12] MEDS ORDERED: SODIUM BICARBONATE (IV ADD) 100 MEQ in DEXTROSE 5% 1,000 ML IV SCH ×2 (10:00→10:58)
--- NOTE | 2017-02-12 10:27 | CONS ---
Date/Time of Note Date/Time of Note DATE: 02/12/17 TIME: 10:23 Assessment/Plan Assessment/Plan Additional Assessment/Plan Chest x-ray was reviewed from today which is showing patchy areas of atelectasis. Ventilator setting; AC of 12, tidal volume 500, PEEP of 5, 40% FiO2. Patient is currently on phenylephrine drip at 300 mics per minute, Levophed 30 mics per minute, vasopressin 0.04 U/min, propofol 20 mics per kilogram per minute. Assessment and recommendations; 1. Patient initially admitted for severe alcoholic cirrhosis with hepatic encephalopathy was in respiratory failure was successfully extubated transferred to the medical floor where the patient did reasonably well for the next few days with severe acute decompensation lately. Patient currently on multiple combination pressor agents for severe refractory hypotension. 2. Severe anemia with active upper GI bleed now. 3. Worsening renal function due to hepatorenal syndrome. 4. Severe thrombocytopenia. 5. Persistent severe leukocytosis and severe hyperbilirubinemia. 6. Status post 2 paracentesis. 7. Likely underlying subacute bacterial peritonitis. Continue current supportive care. Patient to get blood products. Prognosis is dismal. I did have a very detailed discussion patient's cousins after the patient's mother consented to give information to them. I also has a discussion with the patient's mother in the hallway. 35 minutes of critical care time was spent evaluating the patient. Consultation Date/Type/Reason Admit Date/Time Jan 02, 2017 at 19:30 Initial Consult Date 01/07/17 Type of Consultation: Pulmonary/critical care Referring Provider: BRAEDEN LUNSFORD MD 24 HR Interval Summary Free Text/Dictation Patient's condition has taken a significant turn for the worse. Now requiring high-dose combination pressor support for severe hypotension. Patient also had to be sedated for severe tachypnea. General exam; young male, orally intubated, sedated, currently in no distress. Exam/Review of Systems Vital Signs Vitals Vital Signs Date Time Temp Pulse Resp B/P Pulse Ox O2 Delivery O2 Flow Rate FiO2 02/12/17 09:00 89 30 84/69 Mechanical Ventilator 02/12/17 08:00 97.9 02/12/17 06:00 100 02/12/17 05:52 40 Intake and Output 02/11/17 02/11/17 02/12/17 15:00 23:00 07:00 Intake Total 1166.86 ml 430.0 ml 832.84 ml Output Total 1035 ml 12 ml 10 ml Balance 131.86 ml 418.0 ml 822.84 ml Exam HEENT exam; supple neck, no lymphadenopathy. Orally intubated. Patient having active oral bleeding. Patient remains deeply icteric. Chest exam; diminished but clear breath sounds. S1-S2 audible, no murmurs. Regular rhythm. Tachycardic. Abdomen exam; protuberant. Bowel sounds are absent. Positive fluid thrill. Extremity exam; no peripheral edema. ZOOLOGY TEACHER exam; patient is sedated. Results Result Diagram: 02/12/17 0526 02/12/17 05 Results 24 hrs Laboratory Tests Test 02/11/17 12:20 02/11/17 13:40 02/11/17 13:41 02/11/17 13:45 Sodium Level 149 H 148 H Potassium Level 3.1 L Chloride Level 106 Carbon Dioxide Level 28 Anion Gap 17 H Blood Urea Nitrogen 55 H Creatinine 1.78 H Glucose Level 113 Calcium Level 8.3 L Total Bilirubin 31.6 H Direct Bilirubin 26.70 *H Indirect Bilirubin 4.9 H Aspartate Amino Transf (AST/SGOT) 646 H Alanine Aminotransferase (ALT/SGPT) 133 H Alkaline Phosphatase 431 H Total Protein 5.2 L Albumin 2.6 L Globulin 2.60 Albumin/Globulin Ratio 1.00 White Blood Count 36.0 H Red Blood Count 2.55 L Hemoglobin 8.3 L Hematocrit 23.7 L Mean Corpuscular Volume 92.9 Mean Corpuscular Hemoglobin 32.5 Mean Corpuscular Hemoglobin Concent 35.0 Red Cell Distribution Width 24.8 H Platelet Count 32 #L Mean Platelet Volume Neutrophils % 87.8 H Lymphocytes % 1.8 L Monocytes % 4.7 Eosinophils % 0.0 Basophils % 0.3 Nucleated Red Blood Cells % 18.9 H Neutrophils # 31.6 H Lymphocytes # 0.7 L Monocytes # 1.7 H Eosinophils # 0.0 Basophils # 0.1 Nucleated Red Blood Cells # 6.8 H Prothrombin Time 30.4 H Prothrombin Time Ratio 2.4 INR International Normalized Ratio 2.86 Lactic Acid Level 3.7 *H Test 02/11/17 17:59 02/11/17 18:00 02/11/17 20:00 02/12/17 02:50 White Blood Count 35.6 H Red Blood Count 2.56 L Hemoglobin 8.5 L Hematocrit 23.8 L Mean Corpuscular Volume 93.0 Mean Corpuscular Hemoglobin 33.2 H Mean Corpuscular Hemoglobin Concent 35.7 Red Cell Distribution Width 24.9 H Platelet Count 27 *L Mean Platelet Volume Neutrophils % Segmented Neutrophils % (Manual) 78 H Band Neutrophils % (Manual) 21 H Lymphocytes % Monocytes % Monocytes % (Manual) 1 Eosinophils % Basophils % Nucleated Red Blood Cells % 31 H Neutrophils # Neutrophils # (Manual) 30.4 H Band Neutrophils # 7.4 H Lymphocytes # Monocytes # Absolute Monocytes (Manual) 0.3 Eosinophils # Basophils # Nucleated Red Blood Cells # Giant Platelets 1 H Platelet Morphology Comment @See below Poikilocytosis 3+ Basophilic Stippling 1+ Anisocytosis 2+ Microcytosis 1+ Macrocytosis 1+ Spherocytes 1+ Pappenheimer Bodies 1+ Target Cells 1+ Ovalocytes 1+ Acanthocytes 2+ Schistocytes 1+ Sodium Level 148 H Potassium Level 3.5 Chloride Level 107 Carbon Dioxide Level 29 Anion Gap 16 Blood Urea Nitrogen 71 H Creatinine 2.30 H Glucose Level 107 Calcium Level 8.3 L Prothrombin Time 33.0 H 41.6 #H Prothrombin Time Ratio 2.6 3.3 INR International Normalized Ratio 3.17 4.25 Bedside Glucose 126 Test 02/12/17 03:02 02/12/17 03:09 02/12/17 03:50 02/12/17 05:26 Blood Gas Specimen Source Blood arterial Arterial Blood Date Drawn 02/12/2017 3:07:24 AM Arterial Blood pH (Temp corrected) 7.581 *H Arterial Blood pCO2 (Temp correct) 23.2 L Arterial Blood pO2 (Temp corrected) 149.1 H Arterial Blood HCO3 21.3 L Arterial Blood Base Excess -0.6 Arterial Blood Oxygen Saturation 96.7 Prateek Test ACCEPTAB Arterial Blood Gas Puncture Site Right Radial Arterial Blood Carboxyhemoglobin 0.7 Arterial Blood Methemoglobin 0.3 Blood Gas A-a O2 Differential 109.4 H Oxyhemoglobin Percent 95.7 Total Hemoglobin 5.4 L Blood Gas Temperature 37.0 Blood Gas Respiration Rate 12.0 Blood Gas Actual Respiration Rate 32 Blood Gas Modality VENT - AC FiO2 40.0 Blood Gas Tidal Volume 500.0 Blood Gas Low PEEP Setting 5.0 Blood Gas Critical Value Read Back R CLAUDIA RN Blood Gas Notified Whom [employer] Blood Gas Notified Time 02/12/2017 3:18:00 AM Bedside Glucose 160 Ammonia 33 H White Blood Count 18.8 #H Red Blood Count 1.84 #L Hemoglobin 6.0 #*L Hematocrit 18.4 #L Mean Corpuscular Volume 100.0 Mean Corpuscular Hemoglobin 32.6 Mean Corpuscular Hemoglobin Concent 32.6 Red Cell Distribution Width 21.2 H Platelet Count 18 #*L Mean Platelet Volume Neutrophils % Segmented Neutrophils % (Manual) 59 Band Neutrophils % (Manual) 13 H Lymphocytes % Lymphocytes % (Manual) 18 Reactive Lymphocytes % (Manual) 1 H Monocytes % Monocytes % (Manual) 2 Eosinophils % Basophils % Myelocytes % (Manual) 3 H Promyelocytes % (Manual) 4 H Nucleated Red Blood Cells % 28 H Neutrophils # Neutrophils # (Manual) 11.5 H Band Neutrophils # 2.4 H Absolute Lymphocytes (Manual) 3.3 H Lymphocytes # Reactive Lymphocytes # 0.1 H Monocytes # Absolute Monocytes (Manual) 0.3 Eosinophils # Basophils # Myelocytes # 0.5 H Promyelocytes # 0.7 H Nucleated Red Blood Cells # Platelet Estimate SIG DECREASED Polychromasia 1+ Poikilocytosis 3+ Anisocytosis 2+ Macrocytosis 1+ Prothrombin Time 43.5 H Prothrombin Time Ratio 3.4 INR International Normalized Ratio 4.49 Sodium Level Potassium Level 5.5 #H Chloride Level 109 Carbon Dioxide Level 14 #L Anion Gap 32 #H Blood Urea Nitrogen 71 H Creatinine 2.79 H Glucose Level 85 Calcium Level 7.5 L Total Bilirubin 25.7 #H Direct Bilirubin 20.90 *H Indirect Bilirubin 4.8 H Aspartate Amino Transf (AST/SGOT) 715 H Alanine Aminotransferase (ALT/SGPT) 152 H Alkaline Phosphatase 279 H Total Protein 4.7 L Albumin 2.7 L Globulin 2.00 Albumin/Globulin Ratio 1.35 Test 02/12/17 05:33 Lab Scanned Report BLOOD TRANSFUSION Medications Medications Current Medications Ondansetron HCl (Zofran Inj) 4 mg Q6H PRN IV NAUSEA AND/OR VOMITING Last administered on 01/03/17t 14:52; Admin Dose 4 MG; Start 01/02/17 at 23:00 IV Flush (NS 10 ml) 10 ml PRN PRN IV IV PROTOCOL; Start 01/05/17 at 18:30 Nystatin (Nystatin Susp) 5 ml QID PO Last administered on 02/12/17 09:20; Admin Dose 5 ML; Start 01/13/17 at 17:00 Glucose (Glutose) 15 gm Q15M PRN PO DECREASED GLUCOSE; Start 01/15/17 at 18:30 Glucose (Glutose) 22.5 gm Q15M PRN PO DECREASED GLUCOSE; Start 01/15/17 at 18: 30 Dextrose (D50w Syringe) 25 ml Q15M PRN IV DECREASED GLUCOSE; Start 01/15/17 at 18:30 Dextrose (D50w Syringe) 50 ml Q15M PRN IV DECREASED GLUCOSE; Start 01/15/17 at 18:30 Glucagon (Glucagen) 1 mg Q15M PRN IM DECREASED GLUCOSE; Start 01/15/17 at 18:30 Glucose (Glutose) 15 gm Q15M PRN BUCCAL DECREASED GLUCOSE; Start 01/15/17 at 18 :30 Folic Acid (Folic Acid) 1 mg DAILY PO Last administered on 02/12/17 09:20; Admin Dose 1 MG; Start 01/26/17 at 09:00 Thiamine HCl (Vitamin B1) 100 mg DAILY PO Last administered on 02/12/17 09:20 ; Admin Dose 100 MG; Start 01/26/17 at 09:00 Multivit/Ca Carb/ B Cmplx/FA/Prenat (Elizabeth-Kaylee) 1 tab DAILY PO Last administered on 02/12/17 09:20; Admin Dose 1 TAB; Start 01/26/17 at 09:00 Lorazepam (Ativan) 0.5 mg Q6H PRN IV AGITATION/ANXIETY Last administered on 08:59; Admin Dose 0.5 MG; Start 01/28/17 at 14:00 Famotidine 20 mg 20 mg Q12 PO Last administered on 02/12/17 09:20; Admin Dose 20 MG; Start 01/28/17 at 21:00 Norepinephrine 16 mg/Dextrose 500 ml @ 1.87 mls/hr TITRATE IV Last administered on 02/12/17 03:51; Admin Dose 56.25 MLS/HR; Start 02/10/17 at 12 :00 Meropenem/Sodium Chloride (Merrem 1 Gm/50 ml (Pmx)) 50 ml @ 100 mls/hr Q12H IVPB Last administered on 02/12/17 09:18; Admin Dose 100 MLS/HR; Start 02/10 at 09:30 Rifaximin 550 mg 550 mg BID PO Last administered on 02/12/17 09:20; Admin Dose 550 MG; Start 02/10/17 at 21:00 Phytonadione 10 mg/Dextrose 51 ml @ 102 mls/hr ONCE ONCE IVPB ; Start at 11:30; Stop 02/12/17 at 11:59 Vancomycin HCl/ Dextrose (Vancocin/D5W) 250 ml @ 125 mls/hr Q36H IVPB Last administered on 02/12/17 01:35; Admin Dose 125 MLS/HR; Start 02/12/17 at 02: 00 Diagnostic Test (Pha) (Accu-Chek) 1 ea 02 XX ; Start 02/12/17 at 02:00 Prednisolone 35 mg 35 mg DAILY PO Last administered on 02/12/17 09:18; Admin Dose 35 MG; Start 02/11/17 at 09:00 Propofol 100 ml @ 2.217 mls/ hr Q12H IV Last administered on 02/12/17 05:35 ; Admin Dose 2.217 MLS/HR; Start 02/12/17 at 04:00 Phenylephrine HCl 80 mg/Dextrose 500 ml @ 37.5 mls/hr TITRATE IV Last administered on 02/12/17 08:22; Admin Dose 112.5 MLS/HR; Start 02/12/17 at 05 :00 Vasopressin 60 unit/Dextrose 60 ml @ 1.2 mls/hr Q12H IV Last administered on 02/12/17 05:08; Admin Dose 2.4 MLS/HR; Start 02/12/17 at 05:00 Sodium Bicarbonate 100 meq/Dextrose 1,100 ml @ 70 mls/hr [id number] IV ; Start at 10:00 Pantoprazole 80 mg/Dextrose 100 ml @ 10 mls/hr Q10H IVPB Last administered on 02/12/17 09:19; Admin Dose 10 MLS/HR; Start 02/12/17 at 09:00 Octreotide Acetate/Dextrose (Sandostatin/D5W) 105 ml @ 5.25 mls/hr Q20H IVPB Last administered on 02/12/17 09:19; Admin Dose 5.25 MLS/HR; Start 02/12/17 at 09:00 Insulin Aspart (Novolog Insulin Pen) NOVOLOG *MILD* ALGORITHM Q6 SC ; Start at 12:00 NERI MCKEON Feb 12, 2017 10:27
[2017-02-12] MEDS ORDERED: PHYTONADIONE 10 MG in DEXTROSE 5% 50 ML IVPB ONE (11:30)
--- NOTE | 2017-02-12 11:43 | CONS ---
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 I explained that the only way to correct this would be to correct the underlying liver disease which would be a liver transplant. This is not possible in this patient's case as he has recently been drinking. We can continue to given FFP, platelets and vitamin K but these are only temporary measures. Patient's cannot live on chronic transfusion of these products and it does not seem as though his liver disease is reversible this time -Given he is actively bleeding, I explained we can given NovoSeven which can temporarily halt the bleeding but that this will wear off in 4-6 hours and patient would continue to bleed again. Novoseven is usually used as a bridging agent when a patient is waiting for transplant or is trying to get through a procedure while coagulopathic. Still one dose of NovoSeven has been ordered. We will continue to follow his coagulopathy -check DIC labs. given 1 unit of cryo if Fibrinogen < 120 -keep platelets > 30K if possible given he is actively bleeding -continue to try to keep Hg> 8 -patient's family is aware of the poor prognosis -continue HD and ICU care per primary and critical care team Problems: Consultation Date/Type/Reason Admit Date/Time Jan 02, 2017 at 19:30 Date of Consultation: Feb 12, 2017 Type of Consultation: Hematology Reason for Consultation bleeding diathesis Referring Provider: BRAEDEN LUNSFORD MD Hx of Present Illness 36-year-old male who initially presented 01/02/17 with alcoholic cirrhosis and GI Bleed. Per records he was drinking half 750 mL of vodka a day. Continued to drink during this time. Initially pat was started on Librium and Ativan for withdrawal. He had endoscopy done which revealed severe gastritis and congestive gastropathy. Since hospitalizaiton patient and significantly clinically declined. Pt now suffers from SBP, and fulminant liver failure. He is intubated and now on 3 pressors. He is bleeding and remains septic. He has been started on dialysis for his renal failure and acidosis. Subjective hx not possible: pt critical, pt critical status Musculoskeletal: No back pain, No bone/joint pain Neurologic: confusion Endocrine: No polydypsia, No polyuria Immunologic: No immunodeficiency Past Surgical History Past Surgical Hx: no surgical history Family History Significant Family History: no pertinent family hx Social History Alcohol Use: heavy (drinks 750cc of vodka daily) Smoking Status: Current every day smoker Drug Use: none Exam/Review of Systems Vital Signs Vitals Vital Signs Date Time Temp Pulse Resp B/P Pulse Ox O2 Delivery O2 Flow Rate FiO2 02/12/17 10:30 86 26 110/64 02/12/17 10:00 Mechanical Ventilator 02/12/17 08:00 40 02/12/17 08:00 97.9 02/12/17 06:00 100 Intake and Output 02/11/17 02/11/17 02/12/17 15:00 23:00 07:00 Intake Total 1166.86 ml 430.0 ml 832.84 ml Output Total 1035 ml 12 ml 10 ml Balance 131.86 ml 418.0 ml 822.84 ml Exam Constitutional: frail Head: normocephalic ENMT: intubated, other (bleeding from NGT) Neck: non-tender, supple Respiratory: clear to auscultation, normal air movement Cardiovascular: regular rate and rhythm Gastrointestinal: soft Musculoskeletal: nl extremities to inspection Extremities: normal pulses Neurological: VP TALENT MANAGEMENT II-XII intact Results Result Diagram: 02/12/17 0502/12/17 05 Results 24 hrs Laboratory Tests Test 02/11/17 12:20 02/11/17 13:40 02/11/17 13:41 02/11/17 13:45 Sodium Level 149 H 148 H Potassium Level 3.1 L Chloride Level 106 Carbon Dioxide Level 28 Anion Gap 17 H Blood Urea Nitrogen 55 H Creatinine 1.78 H Glucose Level 113 Calcium Level 8.3 L Total Bilirubin 31.6 H Direct Bilirubin 26.70 *H Indirect Bilirubin 4.9 H Aspartate Amino Transf (AST/SGOT) 646 H Alanine Aminotransferase (ALT/SGPT) 133 H Alkaline Phosphatase 431 H Total Protein 5.2 L Albumin 2.6 L Globulin 2.60 Albumin/Globulin Ratio 1.00 White Blood Count 36.0 H Red Blood Count 2.55 L Hemoglobin 8.3 L Hematocrit 23.7 L Mean Corpuscular Volume 92.9 Mean Corpuscular Hemoglobin 32.5 Mean Corpuscular Hemoglobin Concent 35.0 Red Cell Distribution Width 24.8 H Platelet Count 32 #L Mean Platelet Volume Neutrophils % 87.8 H Lymphocytes % 1.8 L Monocytes % 4.7 Eosinophils % 0.0 Basophils % 0.3 Nucleated Red Blood Cells % 18.9 H Neutrophils # 31.6 H Lymphocytes # 0.7 L Monocytes # 1.7 H Eosinophils # 0.0 Basophils # 0.1 Nucleated Red Blood Cells # 6.8 H Prothrombin Time 30.4 H Prothrombin Time Ratio 2.4 INR International Normalized Ratio 2.86 Lactic Acid Level 3.7 *H Test 02/11/17 17:59 02/11/17 18:00 02/11/17 20:00 02/12/17 02:50 White Blood Count 35.6 H Red Blood Count 2.56 L Hemoglobin 8.5 L Hematocrit 23.8 L Mean Corpuscular Volume 93.0 Mean Corpuscular Hemoglobin 33.2 H Mean Corpuscular Hemoglobin Concent 35.7 Red Cell Distribution Width 24.9 H Platelet Count 27 *L Mean Platelet Volume Neutrophils % Segmented Neutrophils % (Manual) 78 H Band Neutrophils % (Manual) 21 H Lymphocytes % Monocytes % Monocytes % (Manual) 1 Eosinophils % Basophils % Nucleated Red Blood Cells % 31 H Neutrophils # Neutrophils # (Manual) 30.4 H Band Neutrophils # 7.4 H Lymphocytes # Monocytes # Absolute Monocytes (Manual) 0.3 Eosinophils # Basophils # Nucleated Red Blood Cells # Giant Platelets 1 H Platelet Morphology Comment @See below Poikilocytosis 3+ Basophilic Stippling 1+ Anisocytosis 2+ Microcytosis 1+ Macrocytosis 1+ Spherocytes 1+ Pappenheimer Bodies 1+ Target Cells 1+ Ovalocytes 1+ Acanthocytes 2+ Schistocytes 1+ Sodium Level 148 H Potassium Level 3.5 Chloride Level 107 Carbon Dioxide Level 29 Anion Gap 16 Blood Urea Nitrogen 71 H Creatinine 2.30 H Glucose Level 107 Calcium Level 8.3 L Prothrombin Time 33.0 H 41.6 #H Prothrombin Time Ratio 2.6 3.3 INR International Normalized Ratio 3.17 4.25 Bedside Glucose 126 Test 02/12/17 03:02 02/12/17 03:09 02/12/17 03:50 02/12/17 05:26 Blood Gas Specimen Source Blood arterial Arterial Blood Date Drawn 02/12/2017 3:07:24 AM Arterial Blood pH (Temp corrected) 7.581 *H Arterial Blood pCO2 (Temp correct) 23.2 L Arterial Blood pO2 (Temp corrected) 149.1 H Arterial Blood HCO3 21.3 L Arterial Blood Base Excess -0.6 Arterial Blood Oxygen Saturation 96.7 Prateek Test ACCEPTAB Arterial Blood Gas Puncture Site Right Radial Arterial Blood Carboxyhemoglobin 0.7 Arterial Blood Methemoglobin 0.3 Blood Gas A-a O2 Differential 109.4 H Oxyhemoglobin Percent 95.7 Total Hemoglobin 5.4 L Blood Gas Temperature 37.0 Blood Gas Respiration Rate 12.0 Blood Gas Actual Respiration Rate 32 Blood Gas Modality VENT - AC FiO2 40.0 Blood Gas Tidal Volume 500.0 Blood Gas Low PEEP Setting 5.0 Blood Gas Critical Value Read Back Lulu TAYLOR RN Blood Gas Notified Whom [employer] SERVICE[employer]ERSON Blood Gas Notified Time 02/12/2017 3:18:00 AM Bedside Glucose 160 Ammonia 33 H White Blood Count 18.8 #H Red Blood Count 1.84 #L Hemoglobin 6.0 #*L Hematocrit 18.4 #L Mean Corpuscular Volume 100.0 Mean Corpuscular Hemoglobin 32.6 Mean Corpuscular Hemoglobin Concent 32.6 Red Cell Distribution Width 21.2 H Platelet Count 18 #*L Mean Platelet Volume Neutrophils % Segmented Neutrophils % (Manual) 59 Band Neutrophils % (Manual) 13 H Lymphocytes % Lymphocytes % (Manual) 18 Reactive Lymphocytes % (Manual) 1 H Monocytes % Monocytes % (Manual) 2 Eosinophils % Basophils % Myelocytes % (Manual) 3 H Promyelocytes % (Manual) 4 H Nucleated Red Blood Cells % 28 H Neutrophils # Neutrophils # (Manual) 11.5 H Band Neutrophils # 2.4 H Absolute Lymphocytes (Manual) 3.3 H Lymphocytes # Reactive Lymphocytes # 0.1 H Monocytes # Absolute Monocytes (Manual) 0.3 Eosinophils # Basophils # Myelocytes # 0.5 H Promyelocytes # 0.7 H Nucleated Red Blood Cells # Platelet Estimate SIG DECREASED Polychromasia 1+ Poikilocytosis 3+ Anisocytosis 2+ Macrocytosis 1+ Prothrombin Time 43.5 H Prothrombin Time Ratio 3.4 INR International Normalized Ratio 4.49 Sodium Level Potassium Level 5.5 #H Chloride Level 109 Carbon Dioxide Level 14 #L Anion Gap 32 #H Blood Urea Nitrogen 71 H Creatinine 2.79 H Glucose Level 85 Calcium Level 7.5 L Total Bilirubin 25.7 #H Direct Bilirubin 20.90 *H Indirect Bilirubin 4.8 H Aspartate Amino Transf (AST/SGOT) 715 H Alanine Aminotransferase (ALT/SGPT) 152 H Alkaline Phosphatase 279 H Total Protein 4.7 L Albumin 2.7 L Globulin 2.00 Albumin/Globulin Ratio 1.35 Test 02/12/17 05:33 Lab Scanned Report BLOOD TRANSFUSION Medications Medications Current Medications Ondansetron HCl (Zofran Inj) 4 mg Q6H PRN IV NAUSEA AND/OR VOMITING Last administered on 01/03/17 14:52; Admin Dose 4 MG; Start 01/02/17 at 23:00 IV Flush (NS 10 ml) 10 ml PRN PRN IV IV PROTOCOL; Start 01/05/17 at 18:30 Nystatin (Nystatin Susp) 5 ml QID PO Last administered on 02/12/17 09:20; Admin Dose 5 ML; Start 01/13/17 at 17:00 Glucose (Glutose) 15 gm Q15M PRN PO DECREASED GLUCOSE; Start 01/15/17 at 18:30 Glucose (Glutose) 22.5 gm Q15M PRN PO DECREASED GLUCOSE; Start 01/15/17 at 18: 30 Dextrose (D50w Syringe) 25 ml Q15M PRN IV DECREASED GLUCOSE; Start 01/15/17 at 18:30 Dextrose (D50w Syringe) 50 ml Q15M PRN IV DECREASED GLUCOSE; Start 01/15/17 at 18:30 Glucagon (Glucagen) 1 mg Q15M PRN IM DECREASED GLUCOSE; Start 01/15/17 at 18:30 Glucose (Glutose) 15 gm Q15M PRN BUCCAL DECREASED GLUCOSE; Start 01/15/17 at 18 :30 Folic Acid (Folic Acid) 1 mg DAILY PO Last administered on 02/12/17 09:20; Admin Dose 1 MG; Start 01/26/17 at 09:00 Thiamine HCl (Vitamin B1) 100 mg DAILY PO Last administered on 02/12/17 09:20 ; Admin Dose 100 MG; Start 01/26/17 at 09:00 Multivit/Ca Carb/ B Cmplx/FA/Prenat (Elizabeth-Kaylee) 1 tab DAILY PO Last administered on 02/12/17 09:20; Admin Dose 1 TAB; Start 01/26/17 at 09:00 Lorazepam (Ativan) 0.5 mg Q6H PRN IV AGITATION/ANXIETY Last administered on 08:59; Admin Dose 0.5 MG; Start 01/28/17 at 14:00 Famotidine 20 mg 20 mg Q12 PO Last administered on 02/12/17 09:20; Admin Dose 20 MG; Start 01/28/17 at 21:00 Norepinephrine 16 mg/Dextrose 500 ml @ 1.87 mls/hr TITRATE IV Last administered on 02/12/17 03:51; Admin Dose 56.25 MLS/HR; Start 02/10/17 at 12 :00 Meropenem/Sodium Chloride (Merrem 1 Gm/50 ml (Pmx)) 50 ml @ 100 mls/hr Q12H IVPB Last administered on 02/12/17 09:18; Admin Dose 100 MLS/HR; Start 02/10 at 09:30 Rifaximin 550 mg 550 mg BID PO Last administered on 02/12/17 09:20; Admin Dose 550 MG; Start 02/10/17 at 21:00 Phytonadione 10 mg/Dextrose 51 ml @ 102 mls/hr ONCE ONCE IVPB ; Start at 11:30; Stop 02/12/17 at 11:59 Vancomycin HCl/ Dextrose (Vancocin/D5W) 250 ml @ 125 mls/hr Q36H IVPB Last administered on 02/12/17 01:35; Admin Dose 125 MLS/HR; Start 02/12/17 at 02: 00 Diagnostic Test (Pha) (Accu-Chek) 1 ea 02 XX ; Start 02/12/17 at 02:00 Prednisolone 35 mg 35 mg DAILY PO Last administered on 02/12/17 09:18; Admin Dose 35 MG; Start 02/11/17 at 09:00 Propofol 100 ml @ 2.217 mls/ hr Q12H IV Last administered on 02/12/17 05:35 ; Admin Dose 2.217 MLS/HR; Start 02/12/17 at 04:00 Phenylephrine HCl 80 mg/Dextrose 500 ml @ 37.5 mls/hr TITRATE IV Last administered on 02/12/17 08:22; Admin Dose 112.5 MLS/HR; Start 02/12/17 at 05 :00 Vasopressin 60 unit/Dextrose 60 ml @ 1.2 mls/hr Q12H IV Last administered on 02/12/17 05:08; Admin Dose 2.4 MLS/HR; Start 02/12/17 at 05:00 Pantoprazole 80 mg/Dextrose 100 ml @ 10 mls/hr Q10H IVPB Last administered on 02/12/17 09:19; Admin Dose 10 MLS/HR; Start 02/12/17 at 09:00 Octreotide Acetate/Dextrose (Sandostatin/D5W) 105 ml @ 5.25 mls/hr Q20H IVPB Last administered on 02/12/17 09:19; Admin Dose 5.25 MLS/HR; Start 02/12/17 at 09:00 Insulin Aspart NOVOLOG *MILD* ALGORITHM Q6 SC ; Start 02/12/17 at 12:00 Sodium Bicarbonate/ Dextrose (Na Bicarb/D5W) 1,100 ml @ 70 mls/hr [id number] IV ; Start 02/12/17 at 10:58 IVORY SANCHEZ M.D. Feb 12, 2017 11:32
[2017-02-12] MEDS: INSULIN ASPART [NOVOLOG] 3 ML PEN SC SCH ×2 (12:00→17:57)
[2017-02-12] MEDS: PHENYLephrine 20MG IN 250 ML 250 ML IV ONE ×2 (12:30→15:55)
[2017-02-12 13:10] LABS: ABNORMAL IP MESSAGE 1; BASOPHILS % 0.2 % (0.0-2.0); EOSINOPHILS % 0.1 % (0.0-7.0); HEMATOCRIT 11.9 % (42.0-52.0); LYMPHOCYTES # 1.4 10^3/ul (0.8-2.9); LYMPHOCYTES % 12.1 % (15.0-51.0); MEAN CORPUSCULAR HEMOGLOBIN 32.7 pg (29.0-33.0); MEAN CORPUSCULAR HGB CONC 31.1 g/dl (32.0-37.0); MEAN CORPUSCULAR VOLUME 105.3 fl (82.0-101.0); MEAN PLATELET VOLUME 10.1 fl (7.4-10.4); MONOCYTE # 0.6 10^3/ul (0.3-0.9); MONOCYTES % 5.3 % (0.0-11.0); NEUTROPHIL # 8.2 10^3/ul (1.6-7.5); NEUTROPHILS % 72.1 % (39.0-77.0); NUCLEATED RED BLOOD CELLS # 3.6 10^3/ul (0.0-0.0); NUCLEATED RED BLOOD CELLS% 31.3 /100WBC (0.0-0.0); PLATELET COUNT 157 10^3/UL (140-415); POSITIVE DIFF @See below; RED BLOOD COUNT 1.13 10^6/ul (4.70-6.10); RED CELL DISTRIBUTION WIDTH 17.8 % (11.5-14.5); WHITE BLOOD COUNT 11.4 10^3/ul (4.8-10.8)
[2017-02-12 13:17] LABS: HEMOGLOBIN 3.7 g/dl (14.0-18.0)
[2017-02-12 13:29] LABS: INR 5.36; PT RATIO 3.9
[2017-02-12 13:30] LABS: ALBUMIN 2.8 g/dl (3.3-4.9); ALBUMIN/GLOBULIN RATIO 1.75; BILIRUBIN,DIRECT 14.7 mg/dl (0.00-0.20); BILIRUBIN,INDIRECT 5.7 mg/dl (0-1.1); BILIRUBIN,TOTAL 20.4 mg/dl (0.2-1.3); TOTAL PROTEIN 4.4 g/dl (6.1-8.1)
[2017-02-12] MEDS ORDERED: ALBUMIN HUMAN 25% 100 ML IV ONE (13:30)
[2017-02-12 13:38] LABS: CREATININE 3.04 mg/dl (0.61-1.24)
[2017-02-12 13:50] LABS: POTASSIUM 6.6 mmol/L (3.5-5.1)
[2017-02-12] MEDS ORDERED: SODIUM BICARBONATE (IV ADD) 150 MEQ in DEXTROSE 5% 1,000 ML IV SCH ×2 (17:30→18:08)
--- NOTE | 2017-02-12 18:18 | CONS ---
Date/Time of Note Date/Time of Note DATE: 02/12/17 TIME: 18:13 Assessment/Plan Assessment/Plan Chief Complaint/Hosp Course ID PROGRESS NOTE TOTAL ABX DAY # 34 CURRENT ABX=> Vanco IV + Merrem + Rifaximin + START Cancidas #1 24H INTERVAL SUMMARY * Case discussed earlier today with Dr. Andujar who recommends initiating anti- fungal EMPIRIC FOR ASCITES , hx of C.Albicans sputum cultures * SEPTIC SHOCK -> On pressors, WBC marked improved, liver failure * Encephalopathic -> Re-intubated early am 02/10/17 for recurrent hypoxic respiratory failure * s/p Urgent HD yesterday w/Right internal jugular Farzad dialysis catheter insertion * CXR 02/10/17 Moderate pulmonary vascular congestion increased compared to the prior. * Urine 02/10/17 (-) preliminary * Sputum 02/10/17 Normal Iqra, preliminary GENERAL: Critically ill on pressors, encephalopathic, orally intubated in ICU HEENT: (+)Icteric, Jaundice, ETT-> secure to Vent NECK: Trach midline, full ROM CV: NSR on tele CHEST: Rise symmetrical => course BS on the Vent ABDOMEN: Distended EXTREMITIES: Anasarca SKIN: No diaphoresis, no rash, jaundice ID ASSESSMENT: 36 yo M admit with: 1. Hypotension/shock -> Multifactorial due to Liver Failure, s/p sepsis * Hypovolemic due to intravascular volume depletions/3rd spacing in setting liver failure * (+) Presumptive SBP Sepsis + ASP PNA => worsening PNA on CXR * Persisting Leukocytosis ->Multifactorial: likely SBP, ASP Pneumonitis, (+) Reactive SRIS, (+)partial steroid demargination * s/p acute UGIB from esophageal varices 2. End-stage liver disease w/hepatic encephalopathy * Persistent severe hyper bilirubinemia with interval worsening. * Anemia + thrombocytopenia + hypoalbuminemia => Due to liver failure 3. Ascites, status post multiple paracenteses, treated with antibiotics for presumable SBP. 4. Acute alcoholic pancreatitis => SIRS w/ leukocytosis * CT w/(+)Diffuse mesenteric edema on admission 5. Acute recurrent respiratory failure, possibly aspiration event=> Re- intubated early am 02/10/17 6. Acute renal failure with severe acidosis=> hepatorenal syndrome * Urgent HD initiated 02/10/17 w/Right internal jugular Farzad dialysis catheter insertion 7. Paralytic ileus. 8. History of alcohol (ETOH) abuse, withdrawal sxs 9. Severe metabolic acidosis w/multiple electrolyte imbalance. INVASIVES: PICC (01/05/17) , R-IJ Farzad (02/10/17) ABX ALLERGY: NKDA TOTAL ABX DAY # 34 CURRENT ABX=> Vanco IV + Merrem + Rifaximin + Cancidas #1 ID PLAN 1. Continue current ABX =>however ABX therapy is not likely to change poor prognosis for meaningful recovery, promote ethic of futility vs family autonomy 2. Case discussed earlier today with Dr. Andujar who recommends initiating anti -fungal EMPIRIC FOR ASCITES , hx of C.Albicans sputum cultures * Will Rx adjusted dose Cancidas = less drug-drug interactions . Problems: Consultation Date/Type/Reason Admit Date/Time Jan 02, 2017 at 19:30 Initial Consult Date 01/07/17 Type of Consultation: ID Referring Provider: BRAEDEN LUNSFORD MD Exam/Review of Systems Vital Signs Vitals Vital Signs Date Time Temp Pulse Resp B/P Pulse Ox O2 Delivery O2 Flow Rate FiO2 02/12/17 18:00 71 29 101/62 Mechanical Ventilator 02/12/17 16:00 97.6 02/12/17 11:45 40 02/12/17 06:00 100 Intake and Output 02/11/17 02/11/17 02/12/17 15:00 23:00 07:00 Intake Total 1166.86 ml 430.0 ml 832.84 ml Output Total 1035 ml 12 ml 10 ml Balance 131.86 ml 418.0 ml 822.84 ml Results Result Diagram: 02/12/17 1303 02/12/17 1303 Results 24 hrs Laboratory Tests Test 02/11/17 20:00 02/12/17 02:50 02/12/17 03:02 02/12/17 03:09 Bedside Glucose 126 160 Prothrombin Time 41.6 #H Prothrombin Time Ratio 3.3 INR International Normalized Ratio 4.25 Blood Gas Specimen Source Blood arterial Arterial Blood Date Drawn 02/12/2017 3:07:24 AM Arterial Blood pH (Temp corrected) 7.581 *H Arterial Blood pCO2 (Temp correct) 23.2 L Arterial Blood pO2 (Temp corrected) 149.1 H Arterial Blood HCO3 21.3 L Arterial Blood Base Excess -0.6 Arterial Blood Oxygen Saturation 96.7 Prateek Test ACCEPTAB Arterial Blood Gas Puncture Site Right Radial Arterial Blood Carboxyhemoglobin 0.7 Arterial Blood Methemoglobin 0.3 Blood Gas A-a O2 Differential 109.4 H Oxyhemoglobin Percent 95.7 Total Hemoglobin 5.4 L Blood Gas Temperature 37.0 Blood Gas Respiration Rate 12.0 Blood Gas Actual Respiration Rate 32 Blood Gas Modality VENT - AC FiO2 40.0 Blood Gas Tidal Volume 500.0 Blood Gas Low PEEP Setting 5.0 Blood Gas Critical Value Read Back Lulu TAYLOR RN Blood Gas Notified Whom [employer] Blood Gas Notified Time 02/12/2017 3:18:00 AM Test 02/12/17 03:50 02/12/17 05:26 02/12/17 05:33 02/12/17 12:08 Ammonia 33 H White Blood Count 18.8 #H Red Blood Count 1.84 #L Hemoglobin 6.0 #*L Hematocrit 18.4 #L Mean Corpuscular Volume 100.0 Mean Corpuscular Hemoglobin 32.6 Mean Corpuscular Hemoglobin Concent 32.6 Red Cell Distribution Width 21.2 H Platelet Count 18 #*L Mean Platelet Volume Neutrophils % Segmented Neutrophils % (Manual) 59 Band Neutrophils % (Manual) 13 H Lymphocytes % Lymphocytes % (Manual) 18 Reactive Lymphocytes % (Manual) 1 H Monocytes % Monocytes % (Manual) 2 Eosinophils % Basophils % Myelocytes % (Manual) 3 H Promyelocytes % (Manual) 4 H Nucleated Red Blood Cells % 28 H Neutrophils # Neutrophils # (Manual) 11.5 H Band Neutrophils # 2.4 H Absolute Lymphocytes (Manual) 3.3 H Lymphocytes # Reactive Lymphocytes # 0.1 H Monocytes # Absolute Monocytes (Manual) 0.3 Eosinophils # Basophils # Myelocytes # 0.5 H Promyelocytes # 0.7 H Nucleated Red Blood Cells # Platelet Estimate SIG DECREASED Polychromasia 1+ Poikilocytosis 3+ Anisocytosis 2+ Macrocytosis 1+ Prothrombin Time 43.5 H Prothrombin Time Ratio 3.4 INR International Normalized Ratio 4.49 Sodium Level Potassium Level 5.5 #H Chloride Level 109 Carbon Dioxide Level 14 #L Anion Gap 32 #H Blood Urea Nitrogen 71 H Creatinine 2.79 H Glucose Level 85 Calcium Level 7.5 L Total Bilirubin 25.7 #H Direct Bilirubin 20.90 *H Indirect Bilirubin 4.8 H Aspartate Amino Transf (AST/SGOT) 715 H Alanine Aminotransferase (ALT/SGPT) 152 H Alkaline Phosphatase 279 H Total Protein 4.7 L Albumin 2.7 L Globulin 2.00 Albumin/Globulin Ratio 1.35 Lab Scanned Report BLOOD TRANSFUSION Bedside Glucose 116 Test 02/12/17 13:03 02/12/17 17:55 White Blood Count 11.4 #H Red Blood Count 1.13 #L Hemoglobin 3.7 #*L Hematocrit 11.9 #L Mean Corpuscular Volume 105.3 H Mean Corpuscular Hemoglobin 32.7 Mean Corpuscular Hemoglobin Concent 31.1 L Red Cell Distribution Width 17.8 H Platelet Count 157 # Mean Platelet Volume 10.1 Neutrophils % 72.1 Lymphocytes % 12.1 L Monocytes % 5.3 Eosinophils % 0.1 Basophils % 0.2 Nucleated Red Blood Cells % 31.3 H Neutrophils # 8.2 H Lymphocytes # 1.4 Monocytes # 0.6 Eosinophils # 0.0 Basophils # 0.0 Nucleated Red Blood Cells # 3.6 H Prothrombin Time 50.0 H Prothrombin Time Ratio 3.9 INR International Normalized Ratio 5.36 Sodium Level 144 Potassium Level 6.6 *H Chloride Level 105 Carbon Dioxide Level 5 #*L Anion Gap 41 #H Blood Urea Nitrogen 61 H Creatinine 3.04 H Glucose Level 117 Calcium Level 7.0 L Total Bilirubin 20.4 #H Direct Bilirubin 14.70 H Indirect Bilirubin 5.7 H Aspartate Amino Transf (AST/SGOT) 4762 H Alanine Aminotransferase (ALT/SGPT) 604 H Alkaline Phosphatase 160 H Total Protein 4.4 L Albumin 2.8 L Globulin 1.60 Albumin/Globulin Ratio 1.75 Bedside Glucose 138 Medications Medications Current Medications Ondansetron HCl (Zofran Inj) 4 mg Q6H PRN IV NAUSEA AND/OR VOMITING Last administered on 01/03/17 14:52; Admin Dose 4 MG; Start 01/02/17 at 23:00 IV Flush (NS 10 ml) 10 ml PRN PRN IV IV PROTOCOL; Start 01/05/17 at 18:30 Nystatin (Nystatin Susp) 5 ml QID PO Last administered on 02/12/17 17:14; Admin Dose 5 ML; Start 01/13/17 at 17:00 Glucose (Glutose) 15 gm Q15M PRN PO DECREASED GLUCOSE; Start 01/15/17 at 18:30 Glucose (Glutose) 22.5 gm Q15M PRN PO DECREASED GLUCOSE; Start 01/15/17 at 18: 30 Dextrose (D50w Syringe) 25 ml Q15M PRN IV DECREASED GLUCOSE; Start 01/15/17 at 18:30 Dextrose (D50w Syringe) 50 ml Q15M PRN IV DECREASED GLUCOSE; Start 01/15/17 at 18:30 Glucagon (Glucagen) 1 mg Q15M PRN IM DECREASED GLUCOSE; Start 01/15/17 at 18:30 Glucose (Glutose) 15 gm Q15M PRN BUCCAL DECREASED GLUCOSE; Start 01/15/17 at 18 :30 Folic Acid (Folic Acid) 1 mg DAILY PO Last administered on 02/12/17 09:20; Admin Dose 1 MG; Start 01/26/17 at 09:00 Thiamine HCl (Vitamin B1) 100 mg DAILY PO Last administered on 02/12/17 09:20 ; Admin Dose 100 MG; Start 01/26/17 at 09:00 Multivit/Ca Carb/ B Cmplx/FA/Prenat (Elizabeth-Kaylee) 1 tab DAILY PO Last administered on 02/12/17 09:20; Admin Dose 1 TAB; Start 01/26/17 at 09:00 Lorazepam (Ativan) 0.5 mg Q6H PRN IV AGITATION/ANXIETY Last administered on 08:59; Admin Dose 0.5 MG; Start 01/28/17 at 14:00 Famotidine 20 mg 20 mg Q12 PO Last administered on 02/12/17 09:20; Admin Dose 20 MG; Start 01/28/17 at 21:00 Norepinephrine 16 mg/Dextrose 500 ml @ 1.87 mls/hr TITRATE IV Last administered on 02/12/17 12:35; Admin Dose 56.25 MLS/HR; Start 02/10/17 at 12 :00 Meropenem/Sodium Chloride (Merrem 1 Gm/50 ml (Pmx)) 50 ml @ 100 mls/hr Q12H IVPB Last administered on 02/12/17 09:18; Admin Dose 100 MLS/HR; Start 02/10 at 09:30 Rifaximin 550 mg 550 mg BID PO Last administered on 02/12/17 09:20; Admin Dose 550 MG; Start 02/10/17 at 21:00 Vancomycin HCl/ Dextrose (Vancocin/D5W) 250 ml @ 125 mls/hr Q36H IVPB Last administered on 02/12/17 01:35; Admin Dose 125 MLS/HR; Start 02/12/17 at 02: 00 Diagnostic Test (Pha) (Accu-Chek) 1 ea 02 XX ; Start 02/12/17 at 02:00 Prednisolone 35 mg 35 mg DAILY PO Last administered on 02/12/17 09:18; Admin Dose 35 MG; Start 02/11/17 at 09:00 Propofol 100 ml @ 2.217 mls/ hr Q12H IV Last administered on 02/12/17 15:48 ; Admin Dose 4.434 MLS/HR; Start 02/12/17 at 04:00 Phenylephrine HCl 80 mg/Dextrose 500 ml @ 37.5 mls/hr TITRATE IV Last administered on 02/12/17 14:11; Admin Dose 112.5 MLS/HR; Start 02/12/17 at 05 :00 Vasopressin 60 unit/Dextrose 60 ml @ 1.2 mls/hr Q12H IV Last administered on 02/12/17 17:16; Admin Dose 1.2 MLS/HR; Start 02/12/17 at 05:00 Pantoprazole 80 mg/Dextrose 100 ml @ 10 mls/hr Q10H IVPB Last administered on 02/12/17 09:19; Admin Dose 10 MLS/HR; Start 02/12/17 at 09:00 Octreotide Acetate/Dextrose (Sandostatin/D5W) 105 ml @ 5.25 mls/hr Q20H IVPB Last administered on 02/12/17 09:19; Admin Dose 5.25 MLS/HR; Start 02/12/17 at 09:00 Insulin Aspart NOVOLOG *MILD* ALGORITHM Q6 SC ; Start 02/12/17 at 12:00 Albumin Human (Albumin Human 25%) 100 ml @ 100 mls/hr Q4 IV Last administered on 02/12/17 17:15; Admin Dose 100 MLS/HR; Start 02/12/17 at 17:00; Stop at 13:59 Miscellaneous Information RANDOM VANCOMYCIN LEVEL ... ONCE ONCE XX ; Start at 05:00; Stop 02/13/17 at 05:01 Sodium Bicarbonate/ Dextrose (Na Bicarb/D5W) 1,150 ml @ 70 mls/hr [id number] IV ; Start 02/12/17 at 18:08 DOE OVALLES NP Feb 12, 2017 18:18
[2017-02-12] MEDS ORDERED: CASPOFUNGIN 50 MG in SOD CHLORIDE 0.9% 250 ML IVPB ONE (20:00)
--- NOTE | 2017-02-12 20:18 | PN ---
Date/Time of Note Date/Time of Note DATE: 02/12/17 TIME: 20:09 Assessment/Plan Lines/Catheters IV Catheter Type (from [facility]): Pigtail IV Line Imnaya in Place (from [facility]): Yes Assessment/Plan Chief Complaint/Hosp Course 1. Sepsis with shock (ddx: pna, aspiration, blood, sbp, hypovolemia) -judicious fluids -supportive -abx -reversal agents 2. Acute GI bleed from gastritis and esophageal varices secondary to alcoholism. -Transfuse as needed -Supportive measures: ppi -Correct coagulopathy and platelet dysfunction > difficult 2nd liver failure 3. Anemia secondary to above -As above 4. Leukocytosis, multifactorial with SIRS and steroid therapy -Close monitoring -follow ascitic fluid studies 5. Alcoholic hepatitis with hepatosplenomegaly, ascites; elevated LFT's; s/p multiple paracentesis; possible transfer to tertiary center. -Medical and GI optimization -transfer to tertiary center 6. Chronic alcohol abuse with Delirium Tremens; no tremors -Encourage cessation -Sedation/intubation 7. Subcapsular liver collection possible hematoma versus other -Monitor 8. Electrolyte imbalance; persistent hypernatremia -Correct with replacements and fluid management 9. NICOLAS: -judicious fluids -avoid nephrotoxic meds 10. Atelectasis vs. pna -pulmonary toilette 11. Acute on chronic alcoholic pancreatitis with peripancreatic fluid -Supportive measures -Judicious fluid management -Trend labs -Alcohol cessation 12. Paralytic ileus 2nd acute processes. SBFT negative. resolved; +bowel function -Monitor Thank you, Problems: Subjective 24 Hr Interval Summary Mental status change. On 3 pressors with hypotension since early am. Sedated due to tachypnea. Drop in Hg. Leukocytosis improved. No fevers, chills, congested cough, vomiting. Bowel function. Exam/Review of Systems Vital Signs Vitals Vital Signs Date Time Temp Pulse Resp B/P Pulse Ox O2 Delivery O2 Flow Rate FiO2 02/12/17 18:45 69 32 105/67 02/12/17 18:00 Mechanical Ventilator 02/12/17 18:00 40 02/12/17 16:00 97.6 02/12/17 06:00 100 Intake and Output 02/11/17 02/11/17 02/12/17 15:00 23:00 07:00 Intake Total 1166.86 ml 430.0 ml 832.84 ml Output Total 1035 ml 12 ml 10 ml Balance 131.86 ml 418.0 ml 822.84 ml Exam Free Text/Dictation Constitutional: Not oriented, sedated on vent Psych: No nl mood/affect Head: atraumatic, normocephalic, No hematomas, No lacerations Eyes: EOMI, PERRL, icteric ENMT: nl external ears & nose, nl lips & teeth. Mucosa pink and dry. Icteric. Right IJ dino. Neck: non-tender, supple, No jvd Respiratory: No congested cough, increased rate Cardiovascular: No edema, No regular rate and rhythm Gastrointestinal: soft, non tender, mod distended. No rebound, rigidity, nor guarding Musculoskeletal: nl extremities to inspection, No joint tenderness; BLE edema Extremities: normal pulses, No calf tenderness, No cyanosis Neurological: sedated Skin: rash or lesions (Jaundice), No diaphoresis, No nl turgor : minaya with luis output Lymph: nl lymph nodes, nontender Results Result Diagram: 02/12/17 1303 02/12/17 1303 PETER TAMEZ MD Feb 12, 2017 20:18
[2017-02-12 21:10] LABS: ABNORMAL IP MESSAGE 1; HEMATOCRIT 22.1 % (42.0-52.0); HEMOGLOBIN 7.1 g/dl (14.0-18.0); MEAN CORPUSCULAR HEMOGLOBIN 30.2 pg (29.0-33.0); MEAN CORPUSCULAR HGB CONC 32.1 g/dl (32.0-37.0); MEAN PLATELET VOLUME 9.6 fl (7.4-10.4); PLATELET COUNT 63 10^3/UL (140-415); POSITIVE DIFF @See below; RED BLOOD COUNT 2.35 10^6/ul (4.70-6.10); RED CELL DISTRIBUTION WIDTH 15.1 % (11.5-14.5); WHITE BLOOD COUNT 15.7 10^3/ul (4.8-10.8)
[2017-02-12 21:41] LABS: ALBUMIN 2.4 g/dl (3.3-4.9); ALKALINE PHOSPHATASE 339 IU/L (42-121); BILIRUBIN,INDIRECT 6.5 mg/dl (0-1.1); BILIRUBIN,TOTAL 20.3 mg/dl (0.2-1.3); BLOOD UREA NITROGEN 57 mg/dl (7-20); CALCIUM 6.4 mg/dl (8.4-10.2); CHLORIDE 105 mmol/L (97-110); GLUCOSE 124 mg/dl (70-220); SODIUM 142 mmol/L (135-144)
[2017-02-12 21:57] LABS: ERYTHROBLAST% (NRBC) (M) 19 % (0-0); LYMPHOCYTES # 1.1 10^3/ul (0.8-2.9); MONOCYTE # 1.1 10^3/ul (0.3-0.9); MONOCYTES % (M) 7 % (0-11)
[2017-02-12 21:58] LABS: BURR CELLS 2+
[2017-02-12 22:24] LABS: ALANINE AMINOTRANSFERASE 1404 IU/L (13-69); ANION GAP 38 (8-16); ASPARTATE AMINO TRANSFERASE > 7500 IU/L (15-46); CARBON DIOXIDE < 5 mmol/L (21-31); CREATININE 2.92 mg/dl (0.61-1.24)
[2017-02-12 22:25] LABS: POTASSIUM 6.4 mmol/L (3.5-5.1)
[2017-02-12 22:32] LABS: PROTIME > 100.0 Sec (12.2-14.2); PT RATIO 7.8
--- NOTE | 2017-02-12 22:32 | CONS ---
DATE OF ADMISSION: 01/02/2017 DATE OF CONSULTATION: HISTORY OF PRESENT ILLNESS: A 37-year-old male with alcoholic hepatitis. Was stable until last night. Had hemodialysis on vent. Suddenly in the night, his blood pressure bottomed out to 30. Started on pressor support. Revived the blood pressure in the range of 80 to 90. His hematocrit was around 18. Got 2 units of packed cell RBCs. Repeat hematocrit came at 2 p.m. as 11. Again, he was started on blood transfusion. His platelet count had bounced back from 18, 000 this morning to 157. His INR is still high at 3.9. The patient is comatose. He is still on vent and 3 pressor support. PHYSICAL EXAMINATION: GENERAL: The patient is unresponsive. He is on the ventilator. ABDOMEN: Distended. He is developing ascites. EXTREMITIES: Upper extremities and lower extremities both are erythematous. LABORATORY: As described. His BUN is 61, creatinine is 3.04. Total bilirubin is 20, SGOT 4700, SGPT 607, alkaline phosphatase 160. Albumin was 1.75. IMPRESSION: 1. Liver failure. 2. Septic shock. 3. Coagulopathy with prolonged prothrombin time and low platelet count. 4. Hypoalbuminemia. 5. Comatose. 6. Vent-dependent respiratory failure. 7. Anemia with bleeding from the nose, mouth, and also with melenic stool. PLAN: The plan at this point is to optimize his hematocrit, give him 2 units of packed cell RBC. Continue octreotide. Continue Protonix drip. Will monitor his INR, hemoglobin and platelet count closely. The patient is on antibiotic meropenem and vancomycin, and I have discussed with the ID department to start on antifungal treatment. At this point, I do not know whether the patient is a candidate for dialysis today or not given his low blood pressure but will give him albumin around the clock, 6 grams of protein q.6 hours to maintain the oncotic pressure. Hopefully, within 24 hours the patient may turn around. Otherwise, the prognosis is guarded. I have had an extensive discussion with the mother and the rest of the family members and the family friends at the request of mom. I also had on and off continued discussion with the staff who is taking care of the patient and the primary MD, Dr. Vazquez every few hours. Dictated By: LAURA GIMENEZ/JACQUELINE Conf#: [id number] DID#: [id number] MTDNima
[2017-02-12 22:33] LABS: INR > 6.00
[2017-02-12] MEDS ORDERED: ARTIFICIAL TEARS 15 ML OPH BOTH EYES PRN (23:30)
[2017-02-12] MEDS ORDERED: DIMETHICONE STICK TOP PRN (23:30)
[2017-02-12] MEDS ORDERED: morphine (DRIP) 100 MG/100 ML 100 ML IV SCH (23:30)
[2017-02-13] VITALS (15 sets, daily range): BP systolic 59–158; BP diastolic 34–137; PULSE 0–130; RESP 15–31
[2017-02-13] MEDS: PHENYLephrine 80 MG in DEXTROSE 5% 492 ML IV SCH (00:38)
[2017-02-13] MEDS: ALBUMIN HUMAN 25% 100 ML IV SCH ×2 (01:00→05:00)
[2017-02-13] MEDS: ACCU-CHEK XX SCH (02:00)
[2017-02-13] MEDS: PANTOPRAZOLE IV 80 MG in DEXTROSE 5% 100 ML IVPB SCH (05:00)
[2017-02-13] MEDS: OCTREOTIDE IVPB SCH (05:00)
[2017-02-13] MEDS: DEXTROSE 5% IVPB SCH (05:00)
[2017-02-13] MEDS: VASOPRESSIN 60 UNIT in DEXTROSE 5% 57 ML IV SCH (05:00)
[2017-02-13] MEDS: INSULIN ASPART [NOVOLOG] 3 ML PEN SC SCH ×2 (06:00)
--- NOTE | 2017-02-13 07:22 | CONS ---
DATE OF ADMISSION: 01/02/2017 DATE OF CONSULTATION: GASTROINTESTINAL CONSULTATION FOLLOWUP HISTORY OF PRESENT ILLNESS: A 37-year-old male with a history of ethanol abuse , was hospitalized for alcoholic hepatitis. Patient initially had renal failure , treated well with albumin and octreotide. Creatinine jumped to almost 5, came down to 1.5. The patient was started on steroid for his alcoholic hepatitis. The bilirubin fluctuated between 29 to 26, but never came down to less than 20. His INR for the last 3 to 4 weeks, had remained in the range of 2 to 2.4. The patient was on antibiotic for almost 8 to 10 days and had 2 to 3 paracenteses in the past. However, over a period of 48 hours, yesterday his condition deteriorated and the sodium persistently remained high. So initially transferred to telemetry and then to the intensive care unit. This morning, patient's condition deteriorated. He required intubation. Dr. Vazquez had called me. The INR was 6, platelet count dropped down. The patient was on vent and had a metabolic acidosis, so we discussed the case and decided to give fresh frozen plasma in order to correct the INR, so that we can have the catheter inserted for dialysis. Continue antibiotic and continue all supportive care, and we decided to again, put a pressure to [facility] for transfer for further management. [facility] was contacted. The patient was on 1 pressor support and rest of the medications were continued. Dr. Vazquez spoke to Dr. Lew and he declined the patient to be transferred and made it very clear after discussion for almost half an hour that just give him comfort measures and patient is not a candidate for transfer and also for liver transplantation. After last unit of [facility] had gone in, I was in the ICU discussing with the family and the rest of the family members and also with Dr. Vazquez who was also there, I called the transplant center and spoke to Dr. Gallagherand the building coordinator also was on a conference call. I told him, as per the literature, patient was on steroids for 4 weeks, did not respond and now was a candidate for a transplant. Also told him that [facility] had accepted the patient 3 weeks ago for a liver transplant. They felt patient was a candidate for transplant, but the insurance company declined it, stating that the [facility] hospital was [facility]. We have been in communication with [facility] for the last 3 weeks through the shoe caser, but they never accepted the patient and now after having had given the treatment for steroids for 4 weeks, hoping that he would recover and when his condition decompensated, we again tried to reach [facility] in the morning and today also I personally spoke to the transplant team and also the transplant attending or fellow at [facility]. His explanation was that the addiction social worker from the [facility] had spoken to the addiction social worker at [facility] and they felt that there was no family support, so they decided not to give a new liver to the patient. The second explanation was that the patient should go home and remain alcohol free for a few weeks and once he demonstrated that ability, then only they can give liver. I made it very clear to him that patient has been in the hospital and his condition will never allow him to go home to demonstrate that he is sober and the literature also had clearly indicated failure of steroid and [place] is an indication for transplant and the ____ rate OF RELAPSE on a transplanted patient over a period of 5 years is not that significant. However, he absolutely declined to accept the patient and now we will continue with all the supportive care. When I am dictating this report, the INR had come down to 2.6. I have spoken to if possible to pass the dialysis catheter to have a Perm-Cath for dialysis. I discussed also with Dr. Vazquez, who was by the side of the patient and also with the rest of the family members face to face for almost 20 to 25 minutes. Dictated By: LAURA GIMENEZ/JACQUELINE Conf#: [id number] DID#: [id number] DYLON
[2017-02-13] MEDS ORDERED: CASPOFUNGIN 35 MG in SOD CHLORIDE 0.9% 250 ML IVPB SCH (20:00)
== END 2017-02-13 06:50 | disposition expired | DRG 432 ==
LOC: MS4 19:30 → ICU 01-04 12:45 → MS2 01-19 16:35 → MS4 02-07 19:04 → ICU 02-08 23:26
PROVIDERS: ADMIT Internal Medicine Nephrology; ATTEND Internal Medicine Nephrology
PROC: 0DJD8ZZ Inspection of Lower Intestinal Tract, Via Natural or Artificial Opening Endoscopic (ICD-10-PCS; principal; 2017-01-03)
PROC: 0DJ08ZZ Inspection of Upper Intestinal Tract, Via Natural or Artificial Opening Endoscopic (ICD-10-PCS; 2017-01-04)
PROC: 02HV33Z Insertion of Infusion Device into Superior Vena Cava, Percutaneous Approach (ICD-10-PCS; 2017-01-05)
PROC: 5A1955Z Respiratory Ventilation, Greater than 96 Consecutive Hours (ICD-10-PCS; 2017-01-07)
PROC: 0BH17EZ Insertion of Endotracheal Airway into Trachea, Via Natural or Artificial Opening (ICD-10-PCS; 2017-01-07)
PROC: 30233N1 Transfusion of Nonautologous Red Blood Cells into Peripheral Vein, Percutaneous Approach (ICD-10-PCS; 2017-01-08)
PROC: 0W9G3ZZ Drainage of Peritoneal Cavity, Percutaneous Approach (ICD-10-PCS; 2017-01-16)
PROC: 0W9G3ZZ Drainage of Peritoneal Cavity, Percutaneous Approach (ICD-10-PCS; 2017-01-25)
PROC: 30233K1 Transfusion of Nonautologous Frozen Plasma into Peripheral Vein, Percutaneous Approach (ICD-10-PCS; 2017-01-29)
PROC: 0W9G3ZZ Drainage of Peritoneal Cavity, Percutaneous Approach (ICD-10-PCS; 2017-02-02)
PROC: 30233R1 Transfusion of Nonautologous Platelets into Peripheral Vein, Percutaneous Approach (ICD-10-PCS; 2017-02-10)
PROC: 0BH17EZ Insertion of Endotracheal Airway into Trachea, Via Natural or Artificial Opening (ICD-10-PCS; 2017-02-10)
PROC: 5A1945Z Respiratory Ventilation, 24-96 Consecutive Hours (ICD-10-PCS; 2017-02-10)
PROC: 05HM33Z Insertion of Infusion Device into Right Internal Jugular Vein, Percutaneous Approach (ICD-10-PCS; 2017-02-10)
PROC: 5A1D70Z Performance of Urinary Filtration, Intermittent, Less than 6 Hours Per Day (ICD-10-PCS; 2017-02-10)
DX: K70.31 Alcoholic cirrhosis of liver with ascites (principal); R65.20 Severe sepsis without septic shock; K70.11 Alcoholic hepatitis with ascites; J96.01 Acute respiratory failure with hypoxia; N17.0 Acute kidney failure with tubular necrosis; D65 Disseminated intravascular coagulation [defibrination syndrome]; K76.7 Hepatorenal syndrome; A41.9 Sepsis, unspecified organism; J69.0 Pneumonitis due to inhalation of food and vomit; J81.1 Chronic pulmonary edema; K85.20 Alcohol induced acute pancreatitis without necrosis or infection; J18.9 Pneumonia, unspecified organism; I85.11 Secondary esophageal varices with bleeding; R40.20 Unspecified coma; K65.2 Spontaneous bacterial peritonitis; F10.231 Alcohol dependence with withdrawal delirium; E87.2 Acidosis; N17.9 Acute kidney failure, unspecified; D68.4 Acquired coagulation factor deficiency; R17 Unspecified jaundice; J98.11 Atelectasis; K56.0 Paralytic ileus; K92.1 Melena; B37.0 Candidal stomatitis; K92.0 Hematemesis; F11.90 Opioid use, unspecified, uncomplicated; E88.09 Other disorders of plasma-protein metabolism, not elsewhere classified; K31.84 Gastroparesis; F32.9 Major depressive disorder, single episode, unspecified; K29.70 Gastritis, unspecified, without bleeding; D64.9 Anemia, unspecified; F10.20 Alcohol dependence, uncomplicated; Z72.0 Tobacco use; K70.40 Alcoholic hepatic failure without coma; K31.89 Other diseases of stomach and duodenum; E87.6 Hypokalemia; B37.9 Candidiasis, unspecified; Z66 Do not resuscitate
CPT/HCPCS: 31500; 36430; 36569; 36600; 70450; 71010; 74000; 74176; 74250; 76700; 76775; 76937; 80048; 80053; 80202; 80307; 81001; 81003; 82105; 82140; 82150; 82310; 82553; 82565; 82803; 82962; 83605; 83615; 83690; 83735; 84100; 84132; 84134; 84295; 84300; 84520; 85014; 85018; 85025; 85049; 85362; 85378; 85384; 85610; 85670; 85730; 86644; 86704; 86709; 86803; 86850; 86900; 86901; 86920; 87040; 87070; 87075; 87081; 87086; 87102; 87116; 87340; 88104; 88305; 89051; 89190; 89220; 90935; 92526; 92610; 93005; 94002; 94003; 94770; 97003; 97110; 97162; 97167; 97530; 97535; J1940; C9113; J0461; J0692; J0696; J1450; J1720; J1815; J2060; J2185; J2250; J2270; J2354; J2370; J2405; J2765; J2916; J2997; J3010; J3360; J3370; J3411; J3475; J3480; J7030; J7040; J7042; J7050; J7060; J7070; J7189; J7510; P9011; P9016; P9035; P9047; P9059; Q9967